=== PATIENT | female | born 1940 | race Caucasian/White ===

== ENCOUNTER 2022-08-15 14:46 | Outpatient (CLI) | payer MEDICARE, BC, SELFPAY ==
--- OUTSIDE RECORDS SUMMARY | 2022-08-15 14:50 | XMS_ITS | Encounter Summary ---
:1940 Author Organization [facility] Address [address] [place] [address] Care Team Providers Name Role Phone RoblesPan collinsaissatou Oliver DO Primary Care Provider Encounter Details Date Type Department Care Team Description 09/20/2021 Lab Visit [facility] Essential hypertension [id number] [place] [address] Social History Tobacco Use Types Packs/Day Years Used Date Smoking Tobacco: Never Smokeless Tobacco: Never Alcohol Use Standard Drinks/Week Comments Yes 0 (1 standard drink = 0.6 oz pure Alcoho lic Drinks/day: 1-2 x per alcohol) year Alcohol Habits Answer Date Recorded How often do you have a drink Not asked containing alcohol? How many drinks containing alcohol Not asked do you have on a typical day when you are drinking? How often do you have six or more Not asked drinks on one occasion? Comment: Alcoholic Drinks/day: 1-2 x per 06/24/20 18 year Sex Assigned at Date Recorded Not on file documented as of this encounter Plan of Treatment Not on filedocumented as of this encounter Procedures Procedure Name Priority Date/Time Associated Diagnosis Comme nts BASIC METABOLIC Routine 09/20/2021 8:44 AM Essential Result s for this PANEL BODY COVERER hypertension procedure are i n the results section. documented in this encounter Results (ABNORMAL) Basic Metabolic Panel (09/20/2021 8:44 AM BODY COVERER) Analysis Performed At Patho logist Time Signature Sodium 141 136 - 145 09/20/2021 [facility] mmol/L 1:06 [facility] Potassium 3.7 3.5 - 5.1 09/20/2021 [facility] mmol/L 1:06 [facility] Chloride 104 98 - 109 09/20/2021 [facility] mmol/L 1:06 PM [facility] CO2 29 20 - 29 09/20/2021 [facility] mmol/L 1:06 PM [facility] Anion Gap 8 7 - 16 09/20/2021 [facility] mmol/L 1:06 PM [facility] Calcium 9.3 8.4 - 10.4 09/20/2021 [facility] mg/dL 1:06 PM [facility] BUN 23 7 - 26 09/20/2021 [facility] mg/dL 1:06 PM [facility] Creatinine 0.94 0.55 - 09/20/2021 [facility] 1.02 mg/dL 1:06 PM [facility] GFR, Estimated 58 (L) >60 09/20/2021 [facility] mL/min/1.7 1:06 PM [facility] 3m2 Glucose 105 (H) 70 - 100 09/20/2021 [facility] mg/dL 1:06 PM [facility] Comment: The given reference range is fo r the fasting state. Non-fasting reference range for glucose is 70 - 180 mg/dL. Hours Fasting 0 09/20/2021 1:06 PM B[facility] C[facility]ER [facility] Specimen Anatomical Collection Method / Collection Time Recei la Time (Source) Location / Volume Laterality Blood Venipuncture / 09/20/2021 8:44 09/20/2021 8:44 Unknown AM BODY COVERER AM BODY COVERER Narrative [facility] - 09/20/2021 1:06 P M BODY COVERER The National Kid[employer] Disease Education Pr ogram suggests measuring Cystatin C in patients with eGFRcrea of 45 to 59 ml/mi n/1.73^2 who do not have other markers of kidney damage (i.e. elevated urine Album in/Creatinine Ratio or a prior Cystatin C confirming the presence of chronic kidne y disease). Veronica Heredia DO LAB_1 Performing Organization Address City/State/ZIP Code Phon e Number [facility] [address] [place] [address] [facility] [address] [place] [address], [facility] documented in this encounter Visit Diagnoses Diagnosis Essential hypertension (HRC) Unspecified essential hypertension documented in this encounter Care Teams Plastics Process Hand Relationship Specialty Start Date End Date Veronica Heredia DO PCP - General Family Practice 03/22/17 [address] [facility] [address] [place], [place] [id number] documented as of this encounter
--- OUTSIDE RECORDS SUMMARY | 2022-08-15 14:50 | XMS_ITS | Encounter Summary ---
:1940 Author Organization [facility] Address [address] [place] [address] Care Team Providers Name Role Phone Veronica Heredia DO Primary Care Provider Reason for Visit Reason Comments Refill levothyroxine (SYNTHROID) 75 MCG tablet [Pharmacy Med Name: LEVOTHYROXINE 75 MCG TABLET] Encounter Details Date Type Department Care Team Description 03/09/2022 Refill [facility] Veronica Heerdia, DO Refill (levothyroxine [address]10 Twelve Rule 24259 Twelve Rule (SYNT HROID) [address] [Pharmacy Med Name: [place] [address] [place] LEVOTHYROXINE 75 MCG [phone] [id number] TABLET]) [phone] (Wo rk) Social History Tobacco Use Types Packs/Day Years [...] on file documented as of this encounter Nursing Notes Lisa Pak RN - 03/09/2022 10:07 AM CDT Renewed medication per medication refill protocol. Requested Prescriptions Pending Prescriptions Disp Refills ??? levothyroxine (SYNTHROID) 75 MCG tablet [Pharmacy Med Name: LEVOTHYROXINE 75 MCG TABLET] 90 Tablet 3 Sig: TAKE 1 TABLET BY MOUTH EVERY DAY Interface, Out [facility] Prov Query - 03/09/2022 12:43 AM CDT levothyroxine (SYNTHROID) 75 MCG tablet [Pharmacy Med Name: LEVOTHYROXINE 75 MCG TABLET] Medication started: 03/13/2019 Last ordered by VERONICA HEREDIA: 06/08/2021 (274 days ago) QTY: 90, Refills: 2, Sig: take 1 tablet by mouth every day (unchanged) -> Refill x 12 months, qty: 90, refills: 3 (until due for an office visit and TSH check) Last qualifying visit: 01/16/2022 (with VERONICA HEREDIA) Next scheduled visit: None TSH: 0.77 mIU/L on 01/16/2022 Powered by [employer] Embedded Refills, Reference: [id number], 03/09/2022 12:43:06 AM CDT, Pool: YURY JUAREZ REFILL ([id number]) Interface, Out [facility] Prov Query - 03/09/2022 12:43 AM CDT The following lab order(s) may be associated with the following Patient Result Comment (Entered by Veronica Heredia DO at 01/17/2022 7:58 AM): TSH, SENSITIVE Your TSH is normal, continue your levothyroxine at your current dosage.Regards, Dr. Heredia documented in this encounter Plan of Treatment Not on filedocumented as of this encounter Visit Diagnoses Diagnosis Hypothyroidism, unspecified type (HRC) documented in this encounter Care Teams Domestic Helper Relationship Specialty Start Date End Date eVronica Heredia DO PCP - General Family Practice 03/22/17 [address] [facility] [address] [place] [address] documented as of this encounter
--- OUTSIDE RECORDS SUMMARY | 2022-08-15 14:50 | XMS_ITS | Encounter Summary ---
:1940 Author Organization [facility] Address [address] [place] [address] Care Team Providers Name Role Phone Veronica Heredia DO Primary Care Provider Reason for Visit Reason Comments Refill metoprolol succinate (TOPROL XL) 50 MG 24 hour release tablet [Pharmacy Med Name: METOPROLOL SUCC ER 50 MG TAB] Encounter Details Date Type Department Care Team Description 06/14/2022 Refill [facility] Veronica Heredia, DO Refill (metoprolol [address] [facility] [address] [facility] succinate (TOPROL XL) [address] [place] 24 [place] [address] [place], [place] tablet [Pharmacy Med [phone] [id number] Name: METOPROLOL SUCC ER [phone] (Wo rk) 50 MG TAB]) Social History Tobacco Use Types Packs/Day Years [...] documented as of this encounter Nursing Notes Jose Luis Jordan RN - 06/16/2022 3:53 PM CDT Renewed medication per medication refill protocol. Requested Prescriptions Pending Prescriptions Disp Refills metoprolol succinate (TOPROL XL) 50 MG 24 hour release tablet [Pharmacy Med Name: METOPROLOL SUCC ER 50 MG TAB] 90 Tablet 2 Sig: TAKE 1 TABLET BY MOUTH EVERY DAY Interface, Out [employer] Prov Query - 06/14/2022 1:08 AM CDT metoprolol succinate (TOPROL XL) 50 MG 24 hour release tablet [Pharmacy Med Name: METOPROLOL SUCC ER50 MG TAB] Medication started: 07/09/2017 Last ordered by VERONICA HEREDIA: 06/09/2021 (370 days ago) QTY: 90, Refills: 3, Sig: take 1 tablet by mouth every day (unchanged) -> The requested strength (50 mg extended release oral tablet) was last ordered on 06/09/2021. The patient is taking 25 mg extended release oral tablet as of 08/02/2021. -> The medication is active at more than one strength (50 mg on 06/09/2021, 25 mg on 08/02/2021). -> Refill x 9 months, qty: 90, refills: 2 (until due for an office visit) Last qualifying visit: 01/16/2022 (with VERONICA HEREDIA) Next scheduled visit: None [facility] Embedded Refills, Reference: [id number], 06/14/2022 1:08:51 AM CDT, Pool: YURY JUAREZ REFILL ([id number]) documented in this encounter Plan of Treatment Not on filedocumented as of this encounter Visit Diagnoses Diagnosis Essential hypertension (HRC) Unspecified essential hypertension documented in this encounter Care Teams Door To Door Lead Generation Relationship Specialty Start Date End Date Veronica Heredia DO PCP - General Family Practice 03/22/17 [address] [facility] [address] [place] [id number] documented as of this encounter
--- OUTSIDE RECORDS SUMMARY | 2022-08-15 14:50 | XMS_ITS | Encounter Summary ---
:1940 Author Organization [facility] Address [address], [place] [address] Care Team Providers Name Role Phone Veronica Heredia DO Primary Care Provider Reason for Referral (Routine) - New Request Specialty Diagnoses / Procedures Referred By Contact Refer red To Contact Procedures Manpreet Choudhary MD Physical Therapy Eval and [address] Treat [place], [place] [address] Referral ID Status Reason Start Date Expiration Date Visits V isits Requested Authorized [id number] New Request 01/03/2022 04/04/2023 1 1 SOLUTION ARCHITECT Procedure/Equipment (Routine) - Incomplete Specialty Diagnoses / Procedures Referred By Contact Refer red To Contact Procedures Angeli Amaya PA-C CT Abd Pelvis WO IV Cont [address] [place] [address] Referral ID Status Reason Start Date Expiration Date Visits V isits Requested Authorized [id number] Incomplete 01/02/2022 04/03/2023 1 1 SOLUTION ARCHITECT Reason for Visit Reason Comments Diarrhea Auth/Cert Specialty Diagnoses / Procedures Referred By Contact Refer red To Contact Diagnoses Colitis Proctitis Leukocytosis, unspecified type (HRC) Diarrhea, unspecified type Colitis Proctitis Diarrhea, unspecified type Leukocytosis, unspecified type (HRC) Colitis Proctitis Diarrhea, unspecified type Leukocytosis, unspecified type (HRC) Referral ID Status Reason Start Date Expiration Date Visits Requ ested Visits Authorized [id number] 1 1 Encounter Details Date Type Department Care Team Description 01/02/2022 - Hospital Encounter Gnosticism Benito Whitaker, SANDRA [address] [place] [address] Colitis; 01/05/2022 General Medicine Cyn Varela DO [address] [place] [address] Proctitis; [address] Manpreet Choudhary MD [address] [place] [address] Diarrhea, unspecified type; Blvd. Leukocytosis, [place] [address] Social History Tobacco Use Types Packs/Day Years [...] on file documented as of this encounter Last Filed Vital Signs Vital Sign Reading Time Taken Comments Blood Pressure 147/74 01/05/2022 7:47 AM [facility] SOLUTION ARCHITECT Pulse 65 01/05/2022 7:47 AM AWS SOLUTION ARCHITECT Temperature 36.3 ??C (97.4 ??F) 01/05/2022 7:47 AM AWS SOLUTION ARCHITECT Respiratory Rate 18 01/05/2022 7:47 AM AWS SOLUTION ARCHITECT Oxygen Saturation 94% 01/05/2022 7:47 AM AWS SOLUTION ARCHITECT Inhaled Oxygen Concentration - - Weight 83.9 kg (184 lb 15.5 oz) 01/03/2022 1:27 PM AWS SOLUTION ARCHITECT Height - - Body Mass Index 31.75 07/13/2021 7:52 AM CDT documented in this encounter Discharge Summaries Manpreet Choudhary MD - 01/05/2022 1:05 PM CST Images from the original note were not included. DISCHARGE SUMMARY Patient ID: Michele Angulo [id number] 81 y.o. 1940 Admit date: 01/02/2022 Discharge date: 01/05/2022 Final Discharge Diagnoses: Colitis Essential hypertension (HRC) Hyperlipidemia (HRC) Endometrial cancer (HRC) Hypothyroidism (HRC) Proctitis * No resolved hospital problems. * HPI: Per Dr Varela's initial H&P: Very pleasant 81 year-old with HTN present to [facility] for ongoing diarrhea. Patient states that her symptoms started last week and continue to progress. She has had possibly 6 episodes of diarrhea and states that there was possibly blood. Patient seen in ED and CT abd/pelvis shows diffuse findings in the rectum and sigmoid colon most consistent with colitis and proctitis. Patient denies any fever, chills, or antibiotics use. Please see the admission history and physical for full details. Hospital Course: C diff colitis with sepsis The patient had no preceding antibiotics or exposure, presented with 1 week of crampy abdominal painand diarrhea, found to have C diff by PCR and evidence of procto-sigmoid colitis on imaging. Marked leukocytosis and tachycardia on arrival which resolved. She was treated with oral vancomycin and keptin the hospital until her stool output subsided and she was able to tolerate a regular diet. - Procedures: none - Consults: none - Significant Diagnostic Studies: CT a/p: 1. Diffuse findings in the rectum and sigmoid colon is most consistent with nonspecific colitis and proctitis. Disposition: home Condition at Discharge: Stable Discharge Exam: BP (!) 147/74 Pulse 65 Temp 36.3 ??C (97.4 ??F) (Oral) Resp 18 Wt 83.9 kg (184 lb 15.5 oz) SpO2 94% BMI 31.75 kg/m?? General: patient is alert and in no acute distress HEENT: conjunctiva clear, MMM Lungs: clear to auscultation bilaterally, no wheezes or crackles Heart: RRR Abdomen: soft, non-tender, bowel sounds present Extremities: no edema Skin: no gross lesions or rashes NEUROLOGIC: CN II - XII grossly intact, normal strength Pending Tests: none Discharge Medications: Done while pt still in hospital bed Medication List START taking these medications vancomycin 125 MG capsule Commonly known as: VANCOCIN Take 1 Capsule (125 mg) by mouth 4 times a day for 32 doses. CONTINUE taking these medications acetaminophen 325 MG tablet Commonly known as: TYLENOL cholecalciferol 25 MCG (1000 UT) tablet Commonly known as: VITAMIN D3 cyanocobalamin 1000 MCG tablet Commonly known as: VITAMIN B12 Take 1 Tablet by mouth daily. hydroCHLOROthiazide 12.5 MG capsule Take 1 Capsule by mouth daily. levothyroxine 75 MCG tablet Commonly known as: SYNTHROID TAKE 1 TABLET BY MOUTH EVERY DAY * metoprolol succinate 50 MG 24 hour release tablet Commonly known as: TOPROL XL TAKE 1 TABLET BY MOUTH EVERY DAY * metoprolol succinate 25 MG 24 hour release tablet Commonly known as: TOPROL XL TAKE 1 TAB BY MOUTH DAILY. TAKE WITH TOPROL XL 50 MG TAB TO EQUAL 75 MG. PRESERVISION AREDS 2 OR simvastatin 20 MG tablet Commonly known as: ZOCOR TAKE 1 TABLET BY MOUTH EVERY DAY valsartan 160 MG tablet Commonly known as: DIOVAN Take 1 Tablet by mouth daily. * This list has 2 medication(s) that are the same as other medications prescribed for you. Read thedirections carefully, and ask your doctor or other care provider to review them with you. Where to Get Your Medications These medications were sent to [facility] [address] [place] [id number] Hours: Open 24x7 ?? vancomycin 125 MG capsule Code Status: Code status: FULL Follow [place]: [place] [address] [facility] [place] [address] APPOINTMENT SCHEDULED see below, If needed, reschedule in 7-10 days after discharge Future Appointments Provider Department Center 01/16/2022 2:00 PM Veronica Heredia DO [facility] Y[facility] Recommendations for primary care physician: cr was up a bit on discharge, please repeat at next clinic visit See the electronic medical record for full laboratory and diagnostic test results. For full discharge orders and instructions, please see the after visit summary for this hospitalization. Total time spent on discharge: 35 minutes Manpreet Choudhary MD [phone] SOLUTION ARCHITECT documented in this encounter Medications at Time of Discharge Medication Sig Dispensed Refills Start Date End Date acetaminophen (TYLENOL) 325 Take 325-650 mg 0 MG tablet by mouth every 4 hours as needed for Pain. cholecalciferol (VITAMIN D3) Take 1,000 Units 0 1000 units tablet by mouth daily. cyanocobalamin (VITAMIN B12) Take 1 Tablet by 90 Tablet 3 0 03/08/2021 1000 MCG tabletIndications: mouth daily. Vitamin B12 deficiency (HRC) hydroCHLOROthiazide 12.5 MG Take 1 Capsule 90 Capsule 3 09/05 capsuleIndications: by mouth daily. Essential hypertension (HRC) Multiple Vitamins-Minerals Take 2 tablets 0 (PRESERVISION AREDS 2 OR) by mouth daily. vancomycin (VANCOCIN) 125 MG Take 1 Capsule 32 Capsule 0 01/202201/13/2022 capsule (125 mg) by mouth 4 times a day for 32 doses. levothyroxine (SYNTHROID) 75 TAKE 1 TABLET BY 90 Tablet 2 0 06/08/2021 03/09/2022 MCG tabletIndications: MOUTH EVERY DAY Hypothyroidism, unspecified type (HRC) metoprolol succinate (TOPROL TAKE 1 TAB BY 90 Tablet 3 07/0708/03/2022 XL) 25 MG 24 hour release MOUTH DAILY. tabletIndications: Essential TAKE WITH TOPROL hypertension (HRC) XL 50 MG TAB TO EQUAL 75 MG. metoprolol succinate (TOPROL TAKE 1 TABLET BY 90 Tablet 3 0 06/09/2021 06/16/2022 XL) 50 MG 24 hour release MOUTH EVERY DAY tabletIndications: Essential hypertension (HRC) simvastatin (ZOCOR) 20 MG TAKE 1 TABLET BY 90 Tablet 2 /01/202106/08/2022 tabletIndications: MOUTH EVERY DAY Hyperlipidemia, unspecified hyperlipidemia type (HRC) valsartan (DIOVAN) 160 MG Take 1 Tablet by 90 Tablet 3 01/202106/28/2022 tabletIndications: Essential mouth daily. hypertension (HRC) documented as of this encounter Progress Notes Jain Bee RN - 01/05/2022 1:05 PM CST DISCHARGE O: Patient safely discharged to home. D: Patient is alert and oriented x 4. Pt up independently . Discharge criteria met. Vaccines addressed prior to discharge. A: Discharge instructions and medications reviewed and given to patient. Written medication education material provided on Oral vancomycinincluding possible side effects. Prescriptions filled by [facility] pharmacy. Belongings checklist reviewed with patient and belongings sent. No Equipment sent:No Supplies sent . Care plan issues addressed and education record updated. R: Patient verbalizes understanding and teaches back discharge instructions. Patient discharged by: wheelchair with staff. SOLUTION ARCHITECT Manpreet Choudhary MD - 01/04/2022 2:55 PM CST DAILY PROGRESS NOTE Subjective: Feeling ok this morning. Diarrhea continues, with some abdominal pain. 10 stools yesterday. No fevers. 5 point ROS negative except as mentioned above. Objective: Vitals: BP 104/61 Pulse 76 Temp 36.6 ??C (97.8 ??F) (Oral) Resp 18 Wt 83.9 kg (184 lb 15.5 oz) SpO2 99% BMI 31.75 kg/m?? I/O last 3 completed shifts: In: 120 [Oral:120] Out: - General: patient is alert and in no acute distress HEENT: conjunctiva clear, MMM Lungs: clear to auscultation bilaterally, no wheezes or crackles Heart: RRR Abdomen: soft, mildly tender lower quadrants, bowel sounds present Extremities: no edema Skin: no gross lesions or rashes Neuro: grossly intact Meds: reviewed in chart LABS: reviewed, see Epic Assessment/Plan Michele Angulo is a 81 y.o. female who presented with 1 week of crampy abdominal pain and diarrhea, found to have C diff. C diff colitis with sepsis The patient had no preceding antibiotics or exposure, presented with 1 week of crampy abdominal painand diarrhea, found to have C diff by PCR. Marked leukocytosis and tachycardia on arrival, improved. - continue vanco 125 qid - continue IVF until stools slow - document stool frequency, volume HTN BP acceptable. - continue metoprolol, losartan - holding hctz given volume losses HLD - continue statin Hypothyroidism - continue synthroid FEN: regular diet Prophy: low risk Code status: full Dispo: home 1-2 days when stools improve Manpreet Choudhary MD [phone] Total time: 25 minutes, >50% of which was spent counseling and coordinating care SOLUTION ARCHITECT Gisela Zabala, PT - 01/04/2022 6:28 AM CST Physical Therapy Inpatient Initial Evaluation Date of Admit: 01/02/2022 History of current medical diagnosis: 81 y.o. female who presented with 1 week of crampy abdominal pain and diarrhea, found to have C diff. ?? C diff colitis with sepsis Rehab Diagnosis: assess for deficits Past Medical History: Past Medical History: Diagnosis Date ??? Aspirin long-term use 04/16/2015 ASA therapy 75-162 mg/day is recommended for primary CVD prevention because patient -Is female 57 years who have at least one additional major risk factor such as: -HTN -Dyslipdemia ??? Calculus of kidney right side diagnosed CT scan in [place] asymptomatic 04/18/2016 ??? Endometrial cancer (HRC) 05/02/2018 ??? H/O colonoscopy 2007 due 201704/16/2015 ??? Hyperlipidemia 07/12/2005 takes zocor ??? Hypertension 04/11/2003 takes atenolol cozaar ??? Obesity (HRC) 04/30/2006 LW Onset: [id number] ??? Postmenopausal 04/16/2015 resolved ??? Zoster Order: Eval and Treat: Discharge/Disposition recommendations SUBJECTIVE Mood: pleasant and alert Patient reports: Pt agreeable to work with PT-states she is feeling quite a bit better Pain: None Support System: lives alone, goes to [place] Part of the year. 2 sisters live in [facility] Prior Functional Level: --Independent with community mobility with no assistive device. --Independent with household mobility with no assistive device. --Driving: yes Assistance provided by: no assistance needed Home Environment: condo Stairs: None Current Equipment Available: no assistive device Patient PT Goals: Pt hopes to return home but very concerned she does not know where her house keys are-RN aware Patient History: Moderate Complexity: 1-2 personal factors and/or comorbidities that impact plan of care: lives alone, no support locally OBJECTIVE Treatment Location: Bedside Special Equipment: IV Precautions: none Orientation: Oriented x 3 Cooperation: full Barriers to Learning: none -- Range of Motion: AROM in bilateral LE WNL -- Strength: Normal in bilateral lower extremities -- Sensation: numbness occasionally in B feet -- Endurance: adequate for household mobility and inadequate for community mobility -- Balance: -- no LOB noted during session Standardized test: -[facility] 6 Items (out of 24 points): Raw Score: 24, Standardized Score: 57.68, 0.00% impaired Suggested AM-[facility] Basic Mobility Stage: 52-65 - MOVING AROUND INDOORS: This score suggests the patient may be able to move about on the ground floor of the home where he/she is familiar with the environment. Activities that might be difficult to manage without assistance include sitting and standing from a low chair, climbing stairs, bending, kneeling or stooping. The patient may have some difficulty moving about outdoors and in the community. Gait: Equipment: no assistive device Assistance: Supervision-> independent Distance: 200 feet Gait Pattern: reciprocal Stairs: Not tested - pt has none to climb Transfers: Sit to Stand: modified independent Sit to/from Supine: independent Clinical Examination: Low complexity: Addressed 1-2 elements from body structures and functions (seeabove), and/or functional limitations as noted below. Other Treatments: none Education/Handouts: Plan for session, encouraged pt to walk 3-4x /day with nursing staff Multidisciplinary Communication: RN ok'd PT and updated after that pt does giuliana need more PT, just have staff walk with pt Timed codes: None Total timed minutes: 0 Total treatment time: 21 ASSESSMENT Assessment: Pt moving well without assistive device-only needs assistance because she has IV which needs to be unplugged and plugged in Discharge Recommendations: (PT) If discharged from hospital today, patient needs: no assist with mobility (PT) Anticipated Equipment Needs at Discharge: None (PT) Discharge Recommendations: home, no further PT recommended (PT) Discharge Recommendations Discussion: Discharge recommendations discussed with, patient, patient agrees with recommendations (PT) Additional Assessment/Recommendations: Pt is safe to d/c home when medically ready. No further inpatint PT planned-pt to walk with nursing staff (due to pt has IV) Patient's impairments: Decreased endurance Functional limitations: No limitations PT Clinical Presentation: Low Complexity: Stable and Uncomplicated Clinical Decision Making: Low Complexity Eval Goals/Functional Outcomes: No goals set- evaluation only. Rehab Potential: Good PLAN Planned intervention/education: Evaluation Frequency: one time Duration: 1 day Goals and Plan of Care discussed with patient/family; patient consents to treatment: Yes Plan for Next Treatment: No further inpatient PT planned-RN aware and nursing staff will walk with patient NOTE: The clinician's signature certifies medical necessity for the treatment plan above. SOLUTION ARCHITECT Manpreet Choudhary MD - 01/03/2022 1:19 PM CST DAILY PROGRESS NOTE Subjective: Patient admitted yesterday afternoon with colitis. Stool sample not sent until this morning, found to have c diff. Diarrhea continues, possibly a bit better this morning. Ongoing pain that precedes bowel movements. No fevers or chills. 5 point ROS negative except as mentioned above. Objective: Vitals: BP 120/65 Pulse 73 Temp 37.1 ??C (98.8 ??F) (Oral) Resp 18 Wt 83 kg (182 lb 15.7 oz) SpO2 94% BMI 31.41 kg/m?? I/O last 3 completed shifts: In: 120 [Oral:120] Out: 651 [Urine:650; Stool:1] General: patient is alert and in no acute distress HEENT: conjunctiva clear, MMM Lungs: clear to auscultation bilaterally, no wheezes or crackles Heart: RRR Abdomen: soft, mildly tender lower quadrants, bowel sounds present Extremities: no edema Skin: no gross lesions or rashes Neuro: grossly intact Meds: reviewed in chart LABS: reviewed, see Epic Assessment/Plan Michele Angulo is a 81 y.o. female who presented with 1 week of crampy abdominal pain and diarrhea, found to have C diff. C diff colitis with sepsis The patient had no preceding antibiotics or exposure, presented with 1 week of crampy abdominal painand diarrhea, found to have C diff by PCR. Marked leukocytosis and tachycardia on arrival, improved. - DC ceftriaxone, flagyl - start vanco 125 qid - continue IVF until stools slow - document stool frequency, volume HTN BP acceptable. - continue metoprolol, losartan - holding hctz given volume losses HLD - continue statin Hypothyroidism - continue synthroid FEN: regular diet Prophy: low risk Code status: full Dispo: home 1-2 days when stools improve, PT for dispo recs Manpreet Choudhary MD [phone] Total time: 35 minutes, >50% of which was spent counseling and coordinating care SOLUTION ARCHITECT Flavia Mensah PharmD - 01/02/2022 10:01 PM CST Medication notes: --Michele takes her simvastatin at 1800 and levothyroxine at 2300. All other meds are taken at 0600. Medications added to [employer] med list: --PreserVision AREDS2 eye vitamin 2QD Medications removed from [employer] med list: None Outpatient Medications Marked as Taking for the 01/02/22 encounter (Hospital Encounter) Medication Sig Last Dose acetaminophen (TYLENOL) 325 MG tablet Take 325-650 mg by mouth every 4 hours as needed for Pain. AsDirected-PRN cholecalciferol (VITAMIN D3) 1000 units tablet Take 1,000 Units by mouth daily. 01/02/2022 at 0600 cyanocobalamin (VITAMIN B12) 1000 MCG tablet Take 1 Tablet by mouth daily. 01/02/2022 at 0600 hydroCHLOROthiazide 12.5 MG capsule Take 1 Capsule by mouth daily. 01/02/2022 at 0600 levothyroxine (SYNTHROID) 75 MCG tablet TAKE 1 TABLET BY MOUTH EVERY DAY 01/01/2022 at 2300 metoprolol succinate (TOPROL XL) 25 MG 24 hour release tablet TAKE 1 TAB BY MOUTH DAILY. TAKE WITH TOPROL XL 50 MG TAB TO EQUAL 75 MG. 01/02/2022 at 0600 metoprolol succinate (TOPROL XL) 50 MG 24 hour release tablet TAKE 1 TABLET BY MOUTH EVERY DAY 01/02/2022 at 0600 Multiple Vitamins-Minerals (PRESERVISION AREDS 2 OR) Take 2 tablets by mouth daily. 01/02/2022 at 0600 simvastatin (ZOCOR) 20 MG tablet TAKE 1 TABLET BY MOUTH EVERY DAY 01/01/2022 at 1800 valsartan (DIOVAN) 160 MG tablet Take 1 Tablet by mouth daily. 01/02/2022 at 0600 Primary Source of Medication Information: Patient Secondary Source of Medication Information: Julianne (website) Number of Medications Reviewed: 9 Number of Clarifications: 2 Time Needed to Complete: 16-30 min Admission Med Rec Score: Total Score: 5 1 Patient age greater than 65 or 82 4 Number of medications on [facility] med list is 0 or greater than 7 Thank you, Flavia Mensah PharmD 01/02/2022 10:01 PM This list represents all stated information available at the present time, and should be used as a guide in determining the appropriate treatment while in the hospital. SOLUTION ARCHITECT Indiana Dougherty RN - 01/02/2022 6:58 PM CST ADMIT O: Admitted patient via wheelchair from EC to bed # [id number] [id number]. D: Patient is alert and oriented x 4; none present. See Admission Assessments. A: Discussed plan of care. See education record for admission education. Oriented to room. Call light in reach. Bed alarm: on R: Patient status: stable. Will monitor. Awaiting orders. SOLUTION ARCHITECT documented in this encounter OR Notes H&P - Cyn Varela DO - 01/02/2022 4:47 PM CST HISTORY & PHYSICAL EXAM Date of admission: 01/02/2022 Primary Care Provider: Veronica Heredia DO HPI: This is a 81 y.o. female admitted to [facility] for colitis Very pleasant 81 year-old with HTN present to [facility] for ongoing diarrhea. Patient states that her symptoms started last week and continue to progress. She has had possibly 6 episodes of diarrhea and states that there was possibly blood. Patient seen in ED and CT abd/pelvis shows diffuse findings in the rectum and sigmoid colon most consistent with colitis and proctitis. Patient denies any fever, chills, or antibiotics use. Patient admitted for further care. Past Medical History: Diagnosis Date ??? Aspirin long-term use 04/16/2015 ASA therapy 75-162 mg/day is recommended for primary CVD prevention because patient -Is female 57 years who have at least one additional major risk factor such as: -HTN -Dyslipdemia ??? Calculus of kidney right side diagnosed CT scan in [place] asymptomatic 04/18/2016 ??? Endometrial cancer (HRC) 05/02/2018 ??? H/O colonoscopy 2007 due 201704/16/2015 ??? Hyperlipidemia 07/12/2005 takes zocor ??? Hypertension 04/11/2003 takes atenolol cozaar ??? Obesity (HRC) 04/30/2006 LW Onset: [id number] ??? Postmenopausal 04/16/2015 resolved ??? Zoster Patient Active Problem List Diagnosis ??? Essential hypertension (HRC) ??? Hyperlipidemia (HRC) ??? Esophageal reflux ??? Calculus of kidney ??? Endometrial cancer (HRC) ??? Hypothyroidism (HRC) ??? Intermediate stage nonexudative age-related macular degeneration of both eyes ??? Proctitis ??? Colitis Social History Socioeconomic History ??? Marital status: Single Spouse name: Not on file ??? Number of children: Not on file ??? Years of education: Not on file ??? Highest education level: Not on file Occupational History ??? Not on file Tobacco Use ??? Smoking status: Never Smoker ??? Smokeless tobacco: Never Used Vaping Use ??? Vaping Use: Never used Substance and Sexual Activity ??? Alcohol use: Yes Comment: Alcoholic Drinks/day: 1-2 x per year ??? Drug use: No ??? Sexual activity: Not on file Other Topics Concern ??? Bike Helmet Yes ??? [place] Yes ??? Exercise Yes ??? Guns in home No ??? Seat Belt Yes ??? Special Diet No ??? Weight Concern Yes Social History Narrative ??? Not on file Social Determinants of Health Financial Resource Strain: Not on file Food Insecurity: Not on file Transportation Needs: Not on file Physical Activity: Not on file Intimate Partner Violence: Not on file Housing Stability: Not on file Family History Problem Relation Age of Onset ??? Arthritis Mother ??? Cancer Mother 73 liver ??? Arthritis Father ??? Kidney/Bladder Disease Father ??? Arthritis Sister ??? Depression Sister ??? High Blood Pressure Sister ??? Anxiety Sister ??? Thyroid Disorder Sister ??? Heart Failure Paternal Grandfather ??? Heart Failure Maternal Grandfather ??? Cancer, Breast Negative Family History ??? Cancer, Ovary Negative Family History ??? Cancer, Endometrial Negative Family History Contrast [iodinated diagnostic agents], Penicillins, and Sulfa antibiotics Medication: Current Facility-Administered Medications Medication Dose Route Frequency Provider Last Rate Last Admin ??? cefTRIAXone (ROCEPHIN) 2 g in dextrose 50 mL IVPB 2 g Intravenous Once Angeli Amaya PA-C100 mL/hr at 01/02/22 1639 2 g at 01/02/22 1639 ??? metroNIDAZOLE (FLAGYL) 500mg in sodium chloride 0.9% 100 mL IVPB 500 mg Intravenous Once Angeli Amaya PA-C Current Outpatient Medications Medication Sig Dispense Refill ??? acetaminophen (TYLENOL) 325 MG tablet Take 325-650 mg by mouth every 4 hours as needed for Pain. ??? cholecalciferol (VITAMIN D3) 1000 units tablet Take 1,000 Units by mouth daily. ??? cyanocobalamin (VITAMIN B12) 1000 MCG tablet Take 1 Tablet by mouth daily. 90 Tablet 3 ??? hydroCHLOROthiazide 12.5 MG capsule Take 1 Capsule by mouth daily. 90 Capsule 3 ??? levothyroxine (SYNTHROID) 75 MCG tablet TAKE 1 TABLET BY MOUTH EVERY DAY 90 Tablet 2 ??? metoprolol succinate (TOPROL XL) 25 MG 24 hour release tablet TAKE 1 TAB BY MOUTH DAILY. TAKE WITH TOPROL XL 50 MG TAB TO EQUAL 75 MG. 90 Tablet 3 ??? metoprolol succinate (TOPROL XL) 50 MG 24 hour release tablet TAKE 1 TABLET BY MOUTH EVERY DAY 90 Tablet 3 ??? simvastatin (ZOCOR) 20 MG tablet TAKE 1 TABLET BY MOUTH EVERY DAY 90 Tablet 2 ??? valsartan (DIOVAN) 160 MG tablet Take 1 Tablet by mouth daily. 90 Tablet 3 ROS: A comprehensive review of system was negative except for the following: See HPI Physical Exam: Vitals: Blood pressure 135/70, pulse 94, temperature 37.8 ??C (100.1 ??F), temperature source Oral, SpO2 97 %. Estimated body mass index is 31.82 kg/m?? as calculated from the following: Height as of 07/13/21: 1.626 m (5' 4). Weight as of 12/29/21: 84.1 kg (185 lb 6.4 oz). General: Patient alert, in NAD. She is able to give a detailed history and follow commands appropriately Upper Extremities: FROM with good strength CV: RRR without murmurs Resp: CBTA Abdomen: Soft, ND, +BS, some guarding in LLQ Lower Extremities: FROM with good strength Neuro: CN II-XII, motor & sensory function all intact. Psychiatric: Patient does not appear depressed or anxious. Labs: Lab Results Component Value Date Creatinine 1.10 (H) 01/02/2022 Glucose 116 (H) 01/02/2022 CO2 27 01/02/2022 Chloride 103 01/02/2022 Potassium 4.1 01/02/2022 Sodium 140 01/02/2022 BUN 24 01/02/2022 Calcium 8.9 01/02/2022 GFR, Estimated 51 (L) 01/02/2022 Lab Results Component Value Date WBC 16.0 (H) 01/02/2022 RBC 4.14 01/02/2022 Hemoglobin 12.0 01/02/2022 HCT 37.2 01/02/2022 MCV 89.9 01/02/2022 RDW 12.6 01/02/2022 Platelets 154 01/02/2022 Images: see EPIC Assessment/Plan: This is a 81 y.o. female with HTN admitted to hospital for 4 days of ongoing diarrhea 2nd to colitis/proctitis Hospital active problems: Plan: 1. Stool cultures, will check CRP, procalcitonin. C diff pending. Will guaiac stools. Will start patient on clears and IV antibiotics (ceftriaxone/metro). Patient has tenderness at LLQ. Held HCTZ and will start IV fluids 2. Code Status: full 3. Plan discuss with patient Cyn Varela DO 4:47 PM 01/02/2022 Hospitalist, [facility] tt 70 mins > 50% direct CT SOLUTION ARCHITECT documented in this encounter ED Notes StjeAngeli hood PA-C - 01/02/2022 2:23 PM CST Chief Complaint: Chief Complaint Patient presents with ??? Diarrhea HPI: Michele Angulo is a 81 y.o. old female with history of hypertension who presents to the ED with diarrhea. Patient presents to the emergency department with approximately 1 week history of diarrhea. Was evaluated in urgent care on 12/29 at which time, had an unremarkable exam and plan was for wait and see.Patient reports that since that time, she continues to endorse approximately 10 episodes of loose stool a day. Denies any blood in the stool. Over the last couple days, has began to notice with lower abdominal pain. No fever, nausea, vomiting, or urinary symptoms. No chest pain or shortness of breath.Patient lives independently and is now reporting some increased weakness and concern for safety at home. She has had decrease in appetite however, does feel like she is staying hydrated. Denies any recent antibiotic use, atypical foods, ill contacts, or travel. Due to above, presents for further evaluation. PMH: Patient Active Problem List Diagnosis ??? Essential hypertension (HRC) ??? Hyperlipidemia (HRC) ??? Esophageal reflux ??? Calculus of kidney ??? Endometrial cancer (HRC) ??? Hypothyroidism (HRC) ??? Intermediate stage nonexudative age-related macular degeneration of both eyes Medications: Current Outpatient Medications Medication ??? acetaminophen (TYLENOL) 325 MG tablet ??? cholecalciferol (VITAMIN D3) 1000 units tablet ??? cyanocobalamin (VITAMIN B12) 1000 MCG tablet ??? hydroCHLOROthiazide 12.5 MG capsule ??? levothyroxine (SYNTHROID) 75 MCG tablet ??? metoprolol succinate (TOPROL XL) 25 MG 24 hour release tablet ??? metoprolol succinate (TOPROL XL) 50 MG 24 hour release tablet ??? simvastatin (ZOCOR) 20 MG tablet ??? valsartan (DIOVAN) 160 MG tablet Allergies: Allergies Allergen Reactions ??? Contrast [Iodinated Diagnostic Agents] Anaphylaxis ??? Penicillins Hives Has tolerated ancef per [facility] chart review. ??? Sulfa Antibiotics Hives Past Surgical History: Past Surgical History: Procedure Laterality Date ??? BUNIONECTOMY ??? CATARACT REMOVAL Bilateral ??? HYSTERECTOMY total with BSO ??? SALPINGO-OOPHORECTOMY Bilateral Family History: Family History Problem Relation Age of Onset ??? Arthritis Mother ??? Cancer Mother 73 liver ??? Arthritis Father ??? Kidney/Bladder Disease Father ??? Arthritis Sister ??? Depression Sister ??? High Blood Pressure Sister ??? Anxiety Sister ??? Thyroid Disorder Sister ??? Heart Failure Paternal Grandfather ??? Heart Failure Maternal Grandfather ??? Cancer, Breast Negative Family History ??? Cancer, Ovary Negative Family History ??? Cancer, Endometrial Negative Family History Social History: Social History Tobacco Use Smoking Status Never Smoker Smokeless Tobacco Never Used Review of Systems: Review of Systems CONSTITUTIONAL: No fever EYES: no visual blurring, no double vision ENT: no rhinorrhea, congestion, sore throat RESPIRATORY: no shortness of breath, no cough CARDIOVASCULAR: no palpitations, no chest pain GASTROINTESTINAL: lower abdominal pain and diarrhea; no nausea, vomiting GENITOURINARY: no dysuria MUSCULOSKELETAL: no neck or back pain SKIN: no rash NEUROLOGIC: no headache, no numbness/tingling Remainder of review of systems is negative, please see HPI. Physical Exam: Triage Vitals [01/02/22 1310] Temp 37.8 ??C (100.1 ??F) Temp src Oral Pulse 98 Resp BP 113/59 SpO2 (!) 91 % Constitutional: Pleasant. Cooperative. Eyes: Pupils equally round and reactive. HENT: Head is normal in appearance. Oropharynx is normal with moist mucus membranes. Cardiovascular: Regular rate and rhythm. Respiratory: Normal respiratory effort, lungs are clear bilaterally. GI: Abdomen is soft, non-distended. LLQ tenderness to palpation. No guarding, rebound, or rigidity. : No CVA tenderness to percussion. Skin: Normal, without rash. Neurologic: Cranial nerves grossly intact, normal cognition, no focal deficits. Alert and oriented x3. Psychiatric: Normal affect. Nursing notes and vital signs reviewed. Laboratory/Diagnostic: LABS: Results for orders placed or performed during the hospital encounter of 01/02/22 Basic Metabolic Panel Result Value Ref Range Sodium 140 136 - 145 mmol/L Potassium 4.1 3.5 - 5.1 mmol/L Chloride 103 98 - 109 mmol/L CO2 27 20 - 29 mmol/L Anion Gap 10 7 - 16 mmol/L Calcium 8.9 8.4 - 10.4 mg/dL BUN 24 7 - 26 mg/dL Creatinine 1.10 (H) 0.55 - 1.02 mg/dL GFR, Estimated 51 (L) >60 mL/min/1.73m2 Glucose 116 (H) 70 - 100 mg/dL Complete Blood Count-W/Diff Result Value Ref Range WBC 16.0 (H) 3.5 - 10.5 x10(9)/L RBC 4.14 3.90 - 5.03 x10(12)/L Hemoglobin 12.0 12.0 - 15.5 g/dL HCT 37.2 34.9 - 44.5 % MCV 89.9 80.0 - 100.0 fL MCH 29.0 27.6 - 33.3 pg MCHC 32.3 31.5 - 35.2 g/dL RDW 12.6 11.9 - 15.5 % Platelets 154 150 - 450 x10(9)/L Automated NRBC 0 <=0 /100 WBC Differential Result Value Ref Range RBC Morphology Reviewed Platelet Estimate Adequate Adequate Neutrophil Absolute 12.9 (H) 1.7 - 7.0 10(9)/L Lymphocyte Absolute 1.2 1.0 - 4.8 10(9)/L Monocytes Absolute 1.8 (H) 0.2 - 0.9 10(9)/L Eosinophil Absolute 0.0 0.0 - 0.5 10(9)/L Basophil Absolute 0.0 0.0 - 0.3 10(9)/L IMAGING: CT Abd Pelvis WO IV Cont Final Result COMPARISON: None. TECHNIQUE: Images were obtained through the abdomen and pelvis without contrast. FINDINGS: LUNG BASES: Unremarkable. LIVER: Subcentimeter hepatic cyst. GALLBLADDER AND BILIARY TREE: Layering debris in the gallbladder likely represents sludge or milk ofcalcium. Gallbladder is otherwise unremarkable. PANCREAS: Unremarkable. SPLEEN: Unremarkable. ADRENALS: Unremarkable. KIDNEYS AND URETERS: 2 mm nonobstructive left renal calculi. No hydronephrosis. VESSELS: No abdominal aortic aneurysm. BOWEL:Small hiatal hernia. Scattered colonic diverticula. Diffuse wall thickening in the rectum and sigmoid colon with associated vascular engorgement in the pericolonic fat. Remainder the large and small bowel are unremarkable. Appendix is not discretely seen. BLADDER: Unremarkable. REPRODUCTIVE ORGANS: No pelvic masses. MESENTERY/PERITONEUM: No enlarged mesenteric lymph nodes. No ascites or free air. No focal fluid collection. RETROPERITONEUM: No adenopathy. ABDOMINAL WALL/SOFT TISSUES: Unremarkable. BONES: No destructive osseous lesions.. IMPRESSION: 1. Diffuse findings in the rectum and sigmoid colon is most consistent with nonspecific colitis and proctitis. ED Course: Interventions: All Medication Administration through 01/02/2022 1640 Date/Time Order Dose Route Action Action by 01/02/2022 1639 cefTRIAXone (ROCEPHIN) 2 g in dextrose 50 mL IVPB 2 g Intravenous Started Caridad Nina RN 01/02/2022 1417 sodium chloride 0.9% bolus 1,000 mL 1,000 mL Intravenous Started Marilee Valenzuela RN 01/02/2022 1639 sodium chloride 0.9% bolus 1,000 mL 0 mL Intravenous Infused Caridad Nina RN Nursing notes and vitals were reviewed. Past medical records were reviewed. I performed an exam of the patient as detailed above. I ordered the above labs and imaging. Findings and plan explained to the patient. I fully addressed and answered all questions and concerns the patient had. Patient admitted to the [facility] service. I discussed with Dr. Varela. Last ED Vitals: Temp: 37.8 ??C (100.1 ??F) (01/02 1310) Temp src: Oral (01/02 1310) Pulse: 94 (01/02 1501) Resp: -- BP: 135/70 (01/02 1501) SpO2: 97 % (01/02 1501) Discharge Medications: Medications Prescribed this Visit None MDM/Plan: Michele Angulo is a 81 y.o. female with history of hypertension who presents to the ED with diarrhea andabdominal pain. The differential diagnosis of abdominal pain is broad and includes such etiologies as diverticulitis, colitis, appendicitis, functional bowel disease, constipation, UTI, GIB, pyelonephritis, ureterolithiasis, hernia, etc. Rare and serious causes were considered as well in this patient such as volvulus, abscess, aneurysmal disease, mesenteric ischemia, etc. The workup at this time is consistent with colitis and proctitis . The differential of this includes ischemic, bacterial, idiopathic, autoimmune, etc. Leukocytosis of 16.0. She is afebrile. No evidence of dehydration or electrolyte abnormality. We discussed potential discharge home however, patient is independent living and reports increasing weakness at home and concern for safety. As such, she will be admitted for further evaluation and management. I did discuss with Rosa Elena Foster hospitalist who was agreeable. Antibiotics ord ered, rocephin started, flagyl pending. Stool studies ordered and pending. Patient remained hemodynamically stable prior to admission. Diagnosis: 1. Colitis 2. Proctitis 3. Diarrhea, unspecified type 4. Leukocytosis, unspecified type (HRC) Angeli Amaya PA-C 01/02/22 1640 SOLUTION ARCHITECT documented in this encounter Plan of Treatment Not on filedocumented as of this encounter Procedures Procedure Name Priority Date/Time Associated Comments Diagnosis BASIC METABOLIC PANEL Routine 01/05/2022 7:21 Res ults for this AM [facility] SOLUTION ARCHITECT procedure are i n the results section. COMPLETE BLOOD Routine 01/05/2022 7:21 Results fo r this COUNT-NO DIFF AM [facility] SOLUTION ARCHITECT procedure are in the results section. BASIC METABOLIC PANEL Routine 01/04/2022 11:28 Re sults for this AM [facility] SOLUTION ARCHITECT procedure are i n the results section. COMPLETE BLOOD Routine 01/04/2022 11:28 Results f or this COUNT-NO DIFF AM [facility] SOLUTION ARCHITECT procedure are in the results section. BASIC METABOLIC PANEL Routine 01/03/2022 7:01 Res ults for this AM [facility] SOLUTION ARCHITECT procedure are i n the results section. COMPLETE BLOOD Routine 01/03/2022 7:01 Results fo r this COUNT-NO DIFF AM [facility] SOLUTION ARCHITECT procedure are in the results section. ENTERIC STOOL Routine 01/03/2022 5:30 Results for this PATHOGENS PANEL AM [facility] SOLUTION ARCHITECT procedure ar e in the results section. ENTERIC STOOL Routine 01/03/2022 5:30 Results for this PATHOGENS, MOLECULAR AM [facility] SOLUTION ARCHITECT procedu re are in DETECTION PANEL the results section. C.DIFFICILE Routine 01/03/2022 5:30 Results for this TOXIN,MOLECULAR AM [facility] SOLUTION ARCHITECT procedure ar e in DETECTION the results section. OCCULT BLOOD, EXAM 1 Routine 01/03/2022 5:30 Resu lts for this AM [facility] SOLUTION ARCHITECT procedure are i n the results section. BLOOD CULTURE STAT 01/02/2022 7:20 Results for this PM [facility] SOLUTION ARCHITECT procedure are i n the results section. CBC AND DIFFERENTIAL STAT 01/02/2022 7:20 Resu lts for this PANEL PM [facility] SOLUTION ARCHITECT procedure are i n the results section. BLOOD CULTURE STAT 01/02/2022 7:20 Results for this PM [facility] SOLUTION ARCHITECT procedure are i n the results section. COMPLETE BLOOD STAT 01/02/2022 7:20 Results fo r this COUNT-W/DIFF PM [facility] SOLUTION ARCHITECT procedure are i n the results section. LACTATE REFLEX PANEL STAT 01/02/2022 7:16 Resu lts for this PM [facility] SOLUTION ARCHITECT procedure are i n the results section. BLOOD CULTURE STAT 01/02/2022 7:16 Results for this PM [facility] SOLUTION ARCHITECT procedure are i n the results section. BLOOD CULTURE STAT 01/02/2022 7:16 Results for this PM [facility] SOLUTION ARCHITECT procedure are i n the results section. BASIC METABOLIC PANEL STAT 01/02/2022 7:16 Res ults for this PM [facility] SOLUTION ARCHITECT procedure are i n the results section. 2019 NOVEL STAT 01/02/2022 4:39 Results for this CORONAVIRUS PM [facility] SOLUTION ARCHITECT procedure are i n the results section. CT ABD PELVIS WO IV STAT 01/02/2022 3:21 Resul ts for this CONT PM [facility] SOLUTION ARCHITECT procedure are i n the results section. LACTATE REFLEX PANEL STAT Add-On 01/02/2022 2:44 Resu lts for this PM [facility] SOLUTION ARCHITECT procedure are i n the results section. CBC AND DIFFERENTIAL STAT 01/02/2022 2:44 Resu lts for this PANEL PM [facility] SOLUTION ARCHITECT procedure are i n the results section. PROCALCITONIN STAT Add-On 01/02/2022 2:44 Results for this PM [facility] SOLUTION ARCHITECT procedure are i n the results section. COMPLETE BLOOD STAT 01/02/2022 2:44 Results fo r this COUNT-W/DIFF PM [facility] SOLUTION ARCHITECT procedure are i n the results section. BASIC METABOLIC PANEL STAT 01/02/2022 2:44 Res ults for this PM [facility] SOLUTION ARCHITECT procedure are i n the results section. DIFFERENTIAL STAT 01/02/2022 2:44 Results for this PM [facility] SOLUTION ARCHITECT procedure are i n the results section. documented in this encounter Results (ABNORMAL) Complete Blood Count-No Diff (01/05/2022 7:21 AM [facility] SOLUTION ARCHITECT) [facility] Method Time Signature WBC 6.5 3.5 - 10.5 01/05/2022 [facility] x10(9)/L 7:32 AM [facility] RBC 3.93 3.90 - 01/05/2022 [facility] 5.03 7:32 AM [facility] ARCHIT[facility] x10(12)/L Hemoglobin 11.3 (L) 12.0 - 01/05/2022 [facility] 15.5 g/dL 7:32 AM [facility] HCT 35.2 34.9 - 01/05/2022 [facility] 44.5 % 7:32 AM [facility] MCV 89.6 80.0 - 01/05/2022 [facility] 100.0 fL 7:32 AM [facility] MCH 28.8 27.6 - 01/05/2022 [facility] 33.3 pg 7:32 AM [facility] MCHC 32.1 31.5 - 01/05/2022 [place] 35.2 g/dL 7:32 AM [facility] RDW 12.7 11.9 - 01/05/2022 [facility] 15.5 % 7:32 AM [facility] Platelets 149 (L) 150 - 450 01/05/2022 [place] x10(9)/L 7:32 AM [facility] Automated NRBC 0 <=0 /100 01/05/2022 [facility] WBC 7:32 AM [facility]CH[facility] Specimen Anatomical Collection Method / Collection Time Recei la Time (Source) Location / Volume Laterality Blood Venipuncture / 01/05/2022 7:21 01/05/2022 7:28 Unknown AM [facility] SOLUTION ARCHITECT AM [facility] SOLUTION ARCHITECT Manpreet Choudhary MD LAB_1 Performing Organization Address City/State/ZIP Code Phon e Number [facility] [address] [place] [address] (ABNORMAL) Basic Metabolic Panel (01/05/2022 7:21 AM [facility] SOLUTION ARCHITECT) [facility] Method Time Signature Sodium 139 136 - 145 01/05/2022 [place] mmol/L 8:17 AM [facility] Potassium 3.5 3.5 - 5.1 01/05/2022 [place] mmol/L 8:17 AM [facility] Chloride 107 98 - 109 01/05/2022 [place] mmol/L 8:17 AM [facility] CO2 23 20 - 29 01/05/2022 [place] mmol/L 8:17 AM [facility] Anion Gap 9 7 - 16 01/05/2022 [place] mmol/L 8:17 AM [facility] Calcium 8.2 (L) 8.4 - 10.4 01/05/2022 [place] mg/dL 8:17 AM [facility] BUN 21 7 - 26 01/05/2022 [facility] mg/dL 8:17 AM [facility] Creatinine 1.46 (H) 0.55 - 01/05/2022 [facility] 1.02 mg/dL 8:17 AM [facility] GFR, Estimated 36 (L) >60 01/05/2022 [facility] mL/min/1.7 8:17 AM [facility] 3m2 Glucose 95 70 - 100 01/05/2022 [facility] mg/dL 8:17 AM [facility] Comment: The given reference range is fo r the fasting state. Non-fasting reference range for glucose is 70 - 180 mg/dL. Specimen Anatomical Collection Method / Collection Time Recei la Time (Source) Location / Volume Laterality Blood Venipuncture / 01/05/2022 7:21 01/05/2022 7:28 Unknown AM [facility] SOLUTION ARCHITECT AM [facility] SOLUTION ARCHITECT Manpreet Choudhary MD LAB_1 Performing Organization Address City/State/ZIP Code Phon e Number [facility] [address] [place] [address] (ABNORMAL) Complete Blood Count-No Diff (01/04/2022 11:28 AM [facility] SOLUTION ARCHITECT) [facility] Method Time Signature WBC 12.1 (H) 3.5 - 10.5 01/04/2022 [facility] x10(9)/L 11:41 AM [facility] RBC 4.36 3.90 - 01/04/2022 [facility] 5.03 11:41 AM [facility]CH[facility] x10(12)/L Hemoglobin 12.4 12.0 - 01/04/2022 [facility] 15.5 g/dL 11:41 AM [facility] HCT 39.4 34.9 - 01/04/2022 [facility] 44.5 % 11:41 AM [facility] MCV 90.4 80.0 - 01/04/2022 [facility] 100.0 fL 11:41 AM [facility] MCH 28.4 27.6 - 01/04/2022 [facility] 33.3 pg 11:41 AM [facility] MCHC 31.5 31.5 - 01/04/2022 [facility] 35.2 g/dL 11:41 AM [facility] RDW 13.0 11.9 - 01/04/2022 [facility] 15.5 % 11:41 AM [facility] Platelets 188 150 - 450 01/04/2022 [facility] x10(9)/L 11:41 AM [facility]CH[facility] Automated NRBC 0 <=0 /100 01/04/2022 [facility] WBC 11:41 AM [facility]CH[facility] Specimen Anatomical Collection Method / Collection Time Recei la Time (Source) Location / Volume Laterality Blood Venipuncture / 01/04/2022 11:28 2 Unknown AM [facility] SOLUTION ARCHITECT 11:30 AM [facility] SOLUTION ARCHITECT Manpreet Choudhary MD LAB_1 Performing Organization Address City/State/ZIP Code Phon e Number [facility] [address] [place] [address] (ABNORMAL) Basic Metabolic Panel (01/04/2022 11:28 AM [facility] SOLUTION ARCHITECT) [facility] Method Time Signature Sodium 138 136 - 145 01/04/2022 [facility] mmol/L 12:05 PM [facility] Potassium 4.0 3.5 - 5.1 01/04/2022 [facility] mmol/L 12:05 PM [facility] Chloride 106 98 - 109 01/04/2022 [facility] mmol/L 12:05 PM [facility] CO2 24 20 - 29 01/04/2022 [facility] mmol/L 12:05 PM [facility] Anion Gap 8 7 - 16 01/04/2022 [facility] mmol/L 12:05 PM [facility] Calcium 8.4 8.4 - 10.4 01/04/2022 [facility] mg/dL 12:05 PM [facility] BUN 18 7 - 26 01/04/2022 [facility] mg/dL 12:05 PM [facility] Creatinine 1.16 (H) 0.55 - 01/04/2022 [facility] 1.02 mg/dL 12:05 PM [facility] GFR, Estimated 48 (L) >60 01/04/2022 [facility] mL/min/1.7 12:05 PM [facility] 3m2 Glucose 105 (H) 70 - 100 01/04/2022 [facility] mg/dL 12:05 PM [facility] Comment: The given reference range is fo r the fasting state. Non-fasting reference range for glucose is 70 - 180 mg/dL. Specimen Anatomical Collection Method / Collection Time Recei la Time (Source) Location / Volume Laterality Blood Venipuncture / 01/04/2022 11:28 2 Unknown AM [facility] SOLUTION ARCHITECT 11:30 AM [facility] SOLUTION ARCHITECT Narrative [facility] - 01/04/2022 12:05 PM [facility] SOLUTION ARCHITECT The National Kid[employer] Disease Education Pr ogram suggests measuring Cystatin C in patients with eGFRcrea of 45 to 59 ml/mi n/1.73^2 who do not have other markers of kidney damage (i.e. elevated urine Album in/Creatinine Ratio or a prior Cystatin C confirming the presence of chronic kidne y disease). Manpreet Choudhary MD LAB_1 Performing Organization Address City/State/ZIP Code Phon e Number [facility] [address] [place] [address] (ABNORMAL) Complete Blood Count-No Diff (01/03/2022 7:01 AM [facility] SOLUTION ARCHITECT) [facility] Method Time Signature WBC 15.8 (H) 3.5 - 10.5 01/03/2022 [facility] x10(9)/L 7:47 AM [facility] RBC 3.87 (L) 3.90 - 01/03/2022 [facility] 5.03 7:47 AM [facility]CHIT[facility] x10(12)/L Hemoglobin 11.2 (L) 12.0 - 01/03/2022 [facility] 15.5 g/dL 7:47 AM [facility] HCT 34.6 (L) 34.9 - 01/03/2022 [facility] 44.5 % 7:47 AM [facility] MCV 89.4 80.0 - 01/03/2022 [facility] 100.0 fL 7:47 AM [facility]CH[facility] MCH 28.9 27.6 - 01/03/2022 [facility] 33.3 pg 7:47 AM [facility]CH[facility] MCHC 32.4 31.5 - 01/03/2022 [facility] 35.2 g/dL 7:47 AM [facility] RDW 13.1 11.9 - 01/03/2022 [facility] 15.5 % 7:47 AM [facility] Platelets 150 150 - 450 01/03/2022 [facility] x10(9)/L 7:47 AM [facility] Automated NRBC 0 <=0 /100 01/03/2022 [facility] WBC 7:47 AM [facility]CH[facility] Specimen Anatomical Collection Method / Collection Time Recei la Time (Source) Location / Volume Laterality Blood Venipuncture / 01/03/2022 7:01 01/03/2022 7:41 Unknown AM [facility] SOLUTION ARCHITECT AM [facility] SOLUTION ARCHITECT Cyn Varela DO LAB_1 Performing Organization Address City/State/ZIP Code Phon e Number [facility] [address] [place] [address] (ABNORMAL) Basic Metabolic Panel (01/03/2022 7:01 AM [facility] SOLUTION ARCHITECT) [facility] Method Time Signature Sodium 139 136 - 145 01/03/2022 [facility] mmol/L 8:26 AM [facility] Potassium 3.4 (L) 3.5 - 5.1 01/03/2022 [facility] mmol/L 8:26 AM [facility] Chloride 103 98 - 109 01/03/2022 [facility] mmol/L 8:26 AM [facility] CO2 27 20 - 29 01/03/2022 [facility] mmol/L 8:26 AM [facility] Anion Gap 9 7 - 16 01/03/2022 [facility] mmol/L 8:26 AM [facility] Calcium 8.3 (L) 8.4 - 10.4 01/03/2022 [facility] mg/dL 8:26 AM [facility] BUN 23 7 - 26 01/03/2022 [facility] mg/dL 8:26 AM [facility] Creatinine 1.04 (H) 0.55 - 01/03/2022 [facility] 1.02 mg/dL 8:26 AM [facility] GFR, Estimated 55 (L) >60 01/03/2022 [facility] mL/min/1.7 8:26 AM [facility] 3m2 Glucose 108 (H) 70 - 100 01/03/2022 [facility] mg/dL 8:26 AM [facility] Comment: The given reference range is fo r the fasting state. Non-fasting reference range for glucose is 70 - 180 mg/dL. Specimen Anatomical Collection Method / Collection Time Recei la Time (Source) Location / Volume Laterality Blood Venipuncture / 01/03/2022 7:01 01/03/2022 7:41 Unknown AM [facility] SOLUTION ARCHITECT AM [facility] SOLUTION ARCHITECT Narrative [facility] - 01/03/2022 8:26 A M [facility] SOLUTION ARCHITECT The [employer] Kid[employer] Education Pr ogram suggests measuring Cystatin C in patients with eGFRcrea of 45 to 59 ml/mi n/1.73^2 who do not have other markers of kidney damage (i.e. elevated urine Album in/Creatinine Ratio or a prior Cystatin C confirming the presence of chronic kidne y disease). Cyn Varela DO LAB_1 Performing Organization Address City/[facility]/ZIP [facility] [place], [place] Phon e Number [facility] [address] [place] [address] (ABNORMAL) Occult Blood, Exam 1 (01/03/2022 5:30 AM AWS SOLUTION ARCHITECT) Patholo gist Method Time Signature Occult Blood Positive (A) Negative 01/03/2022 [facility] 6:01 AM [facility] SOL[facility]CHITECT [facility]ORATORY Specimen Anatomical Collection Method Collection Time Receive d Time (Source) Location / / Volume Laterality Stool 01/03/2022 5:30 AM 2 5:37 AWS SOLUTION ARCHITECT AM AWS SOLUTION ARCHITECT Cyn Varela DO LAB_1 Performing Organization Address [facility] Phon e Number [facility] [address] [place] [address] Enteric Stool Pathogens, Molecular Detection Panel (01/03/2022 5:30 AM AWS SOLUTION ARCHITECT) Analysis Performed Patholog ist Time At Signature Campylobacter Not Not MOLECULAR BLOOD 01/03/2022 [facility] Detected Detected CULTURE 1:26 PM HOSPITAL IDENTIFICATION [facility] SOLUTION ARCHITECT Salmonella Not Not MOLECULAR BLOOD 01/03/2022 [facility] Species Detected Detected CULTURE 1:26 PM HOSPITAL IDENTIFICATION [facility] SOLUTION ARCHITECT Shigella Species Not Not MOLECULAR BLOOD 01/03/2022 [facility] Detected Detected CULTURE 1:26 PM HOSPITAL IDENTIFICATION [facility] SOLUTION ARCHITECT Vibrio Group Not Not MOLECULAR BLOOD 01/03/2022 [facility] Detected Detected CULTURE 1:26 PM HOSPITAL IDENTIFICATION AWS SOLUTION ARCHITECT Shiga toxin 1 Not Not MOLECULAR BLOOD 01/03/2022 [facility] Detected Detected CULTURE 1:26 PM HOSPITAL IDENTIFICATION AWS SOLUTION ARCHITECT Shiga toxin 2 Not Not MOLECULAR BLOOD 01/03/2022 [facility] Detected Detected CULTURE 1:26 PM HOSPITAL IDENTIFICATION AWS SOLUTION ARCHITECT Norovirus Not Not MOLECULAR BLOOD 01/03/2022 [facility] Detected Detected CULTURE 1:26 PM HOSPITAL IDENTIFICATION AWS SOLUTION ARCHITECT Rotavirus Not Not MOLECULAR BLOOD 01/03/2022 [facility] Detected Detected CULTURE 1:26 PM HOSPITAL IDENTIFICATION AWS SOLUTION ARCHITECT Yersinia Not Not MOLECULAR BLOOD 01/03/2022 [facility] enterocolitica Detected Detected CULTURE 1:26 PM HOSPITAL IDENTIFICATION AWS SOLUTION ARCHITECT Specimen Anatomical Collection Method Collection Time Receive d Time (Source) Location / / Volume Laterality Stool 01/03/2022 5:30 AM 2 5:38 [facility] SOLUTION ARCHITECT AM AWS SOLUTION ARCHITECT Narrative [facility] - 01/03/2022 1:26 PM CS T Shiga toxin producing E. coli (STEC) typically harbor one or both genes that encode for Shiga toxins 1 and 2. Testing is performed by an automated sys tem utilizing reverse retail warehouse associate (RT), polymerase chain reaction (PCR), and array hybridization. Shiga toxin producing E. coli (STEC) typ ically harbor one or both genes that encode for Shiga toxins 1 and 2. Testing is performed by an automated sys tem utilizing reverse retail warehouse associate (RT), polymerase chain reaction (PCR), and array hybridization. Angeli Amaya PA-C LAB_1 Performing Organization Address City/[facility]/ZIP [facility] [place], [place] Phon e Number [address] [address] (ABNORMAL) C.Difficile Toxin,Molecular Detection,This order expires in 24 hours. Do NOT collect after: 01/03/2022; at: 2:02 PM (01/03/2022 5:30 AM AWS SOLUTION ARCHITECT) [employer] Method Time Signature C.difficile Detected (A) Not Detected 01/03/2022 [facility] by PCR 6:31 AM [facility]CHIT[facility]ATORY Specimen Anatomical Collection Method Collection Time Receive d Time (Source) Location / / Volume Laterality Stool 01/03/2022 5:30 AM 5:37 [facility] SOLUTION ARCHITECT AM AWS SOLUTION ARCHITECT [facility] - 01/03/2022 6:31 A M AWS SOLUTION ARCHITECT Methodology: Qualitative real-time PCR a ssay to detect the Clostridium difficile toxin B gene. Cyn Varela DO LAB_1 Performing Organization Address City/State/ZIP [facility] e Number [facility] [address] [place] [address] Blood Culture (01/02/2022 7:20 PM AWS SOLUTION ARCHITECT) [employer] Method Time Signature Blood Culture No Growth LAB 01/08/2022 [facility] at 5 Days ETEST 1:02 AM [facility] SOLUTION ARCHITECT HOSPITAL METHOD Specimen Anatomical Collection Method / Collection Time Recei la Time (Source) Location / Volume Laterality Blood (Arm, Venipuncture 01/02/2022 7:20 01/02/2022 7 :27 right) Butterfly / Unknown PM AWS SOLUTION ARCHITECT PM AWS SOLUTION ARCHITECT Cyn Varela DO LAB_1 Performing Organization Address City/State/[place] [address] (ABNORMAL) Complete Blood Count-W/Diff (01/02/2022 7:20 PM AWS SOLUTION ARCHITECT) [facility] Method Time Signature WBC 19.5 (H) 3.5 - 10.5 01/02/2022 [facility] x10(9)/L 7:31 PM [facility] SOLUTION ARCHIT[facility]ATORY RBC 4.05 3.90 - 01/02/2022 [facility] 5.03 7:31 PM [facility] SOLUTION ARCHITECT [facility]ATORY x10(12)/L Hemoglobin 11.9 (L) 12.0 - 01/02/2022 [facility] 15.5 g/dL 7:31 PM [facility] SOLUTION ARCHITECT [facility]ATORY HCT 36.3 34.9 - 01/02/2022 [facility] 44.5 % 7:31 PM [facility] SOLUTION ARCHITECT [facility] MCV 89.6 80.0 - 01/02/2022 [facility] 100.0 fL 7:31 PM [facility] SOLUTION ARCHITECT [facility]ORY MCH 29.4 27.6 - 01/02/2022 [facility] 33.3 pg 7:31 PM [facility] SOLUTION ARCHITECT [facility]ORY MCHC 32.8 31.5 - 01/02/2022 [facility] 35.2 g/dL 7:31 PM [facility] SOLUTION ARCHITECT [facility]ORY RDW 12.8 11.9 - 01/02/2022 [facility] 15.5 % 7:31 PM [facility] SOLUTION ARCHITECT [facility]ORY Platelets 153 150 - 450 01/02/2022 [facility] x10(9)/L 7:31 PM [facility] SOLUTION ARCHITECT [facility] Automated NRBC 0 <=0 /100 01/02/2022 [facility] WBC 7:31 PM [facility] ARCHITECT [facility] Neutrophil 16.5 (H) 1.7 - 7.0 01/02/2022 [facility] Absolute 10(9)/L 7:31 PM [facility] SOLUTION ARCHITECT [facility]ORY Lymphocyte 0.6 (L) 1.0 - 4.8 01/02/2022 [facility] Absolute 10(9)/L 7:31 PM [facility] SOL[facility] ARCHITECT [facility] Monocytes 2.1 (H) 0.2 - 0.9 01/02/2022 [facility] Absolute 10(9)/L 7:31 PM [facility] ARCHITECT [facility] Eosinophil 0.1 0.0 - 0.5 01/02/2022 [facility] Absolute 10(9)/L 7:31 PM [facility]UTION ARCHITECT [facility] Basophil 0.1 0.0 - 0.3 01/02/2022 [facility] Absolute 10(9)/L 7:31 PM [facility] SOLUTION ARCHITECT [facility] Immature Gran % 0.9 (H) 0.0 - 0.5 01/02/2022 [facility] % 7:31 PM [facility] SOLUTION ARCHITECT LAB[facility]ATORY Specimen Anatomical Collection Method / Collection Time Recei la Time (Source) Location / Volume Laterality Blood (Arm, Venipuncture 01/02/2022 7:20 01/02/2022 7 :27 right) Butterfly / Unknown PM [facility] SOLUTION ARCHITECT PM AWS SOLUTION ARCHITECT Cyn Varela DO LAB_1 Performing Organization Address [facility] Phon e Number [facility] [address] [place] [address] Blood Culture (01/02/2022 7:16 PM AWS SOLUTION ARCHITECT) [facility] Method Time Signature Blood Culture No Growth RH LAB 01/08/2022 [facility] at 5 Days ETEST 1:02 AM [facility] SOLUTION ARCHITECT HOSPITAL METHOD Specimen Anatomical Collection Method / Collection Time Recei la Time (Source) Location / Volume Laterality Blood (Arm, Venipuncture 01/02/2022 7:16 01/02/2022 7 :27 left) Butterfly / Unknown PM AWS SOLUTION ARCHITECT PM AWS SOLUTION ARCHITECT Cyn Varela DO LAB_1 Performing Organization Address [facility] Phon e Number [address] [address] Lactate Reflex Panel if Q2 Hour >= 2.0 (01/02/2022 7:16 PM AWS SOLUTION ARCHITECT) athologist Signature Lactate, Whole 1.10 0.50 - 01/02/2022 [facility] Blood 2.00 7:32 PM [facility] SOLUTION ARCHITECT [facility]ORY mmol/L Specimen Anatomical Collection Method / Collection Time Recei la Time (Source) Location / Volume Laterality Blood (Arm, Venipuncture 01/02/2022 7:16 01/02/2022 7 :28 left) Butterfly / Unknown PM [facility] SOLUTION ARCHITECT PM AWS SOLUTION ARCHITECT Narrative [facility] - 01/02/2022 7:32 P M AWS SOLUTION ARCHITECT Reference range for healthy individuals when sepsis is not suspected is 0.5-2.2 mmol/L Cyn Kishore Varela DO LAB_1 Performing Organization Address [facility]/State/ZIP Code Phon e Number [facility] [address] [place] [address] (ABNORMAL) Basic Metabolic Panel (01/02/2022 7:16 PM AWS SOLUTION ARCHITECT) [facility] Method Time Signature Sodium 141 136 - 145 01/02/2022 [facility] mmol/L 7:49 PM [facility] SOLUTION ARCHITECT [facility]ORY Potassium 3.7 3.5 - 5.1 01/02/2022 [facility] mmol/L 7:49 PM [facility] SOLUTION ARCHITECT LAB[facility]ATORY Chloride 103 98 - 109 01/02/2022 [facility] mmol/L 7:49 PM [facility] SOLUTION ARCHITECT [facility]ORY CO2 24 20 - 29 01/02/2022 [facility] mmol/L 7:49 PM [facility] SOLUTION ARCHITECT [facility] Anion Gap 14 7 - 16 01/02/2022 [facility] mmol/L 7:49 PM [facility] SOLUTION ARCHITECT [facility] Calcium 8.6 8.4 - 10.4 01/02/2022 [facility] mg/dL 7:49 PM [facility] SOLUTION ARCHITECT [facility] BUN 23 7 - 26 01/02/2022 [facility] mg/dL 7:49 PM [facility] ARCHITECT [facility] Creatinine 1.07 (H) 0.55 - 01/02/2022 [facility] 1.02 mg/dL 7:49 PM [facility] SOL[facility] ARCHITECT [facility] GFR, Estimated 53 (L) >60 01/02/2022 [facility] mL/min/1.7 7:49 PM [facility] SOLUTION ARCHITECT [facility]ORY 3m2 Glucose 128 (H) 70 - 100 01/02/2022 [facility] mg/dL 7:49 PM [facility] SOLUTION ARCHITECT [facility]ORY Comment: The given reference range is fo r the fasting state. Non-fasting reference range for glucose is 70 - 180 mg/dL. Specimen Anatomical Collection Method / Collection Time Recei la Time (Source) Location / Volume Laterality Blood (Arm, Venipuncture 01/02/2022 7:16 01/02/2022 7 :27 left) Butterfly / Unknown PM [facility] SOLUTION ARCHITECT PM AWS SOLUTION ARCHITECT Narrative [facility] - 01/02/2022 7:49 P M AWS SOLUTION ARCHITECT The National Kidney Disease Education Pr ogram suggests measuring Cystatin C in patients with eGFRcrea of 45 to 59 ml/mi n/1.73^2 who do not have other markers of kidney damage (i.e. elevated urine Album in/Creatinine Ratio or a prior Cystatin C confirming the presence of chronic kidne y disease). Cyn Varela DO LAB_1 Performing Organization Address City/State/ZIP Code Phon e Number [facility] [address] [place] [address] COVID (Rapid Yellow Kit, Nares) - Asymptomatic [facility] ED ONLY (01/02/2022 4:39 PM AWS SOLUTION ARCHITECT) [facility] Method Time Signature COVID-19 Not Not 01/02/2022 [facility] Interpretation Detected Detected 6:12 PM [facility] SOLUTION ARCHITECT LAB[facility]ATORY Source Nares, left 01/02/2022 [facility] and right 6:12 PM [facility] SOLUTION ARCHITECT LAB[facility]ATORY Specimen Anatomical Collection Method Collection Time Receive d Time (Source) Location / / Volume Laterality Swab (Source ENTIRE ANTERIOR Non-blood 01/02/2022 4:39 PM 2021 4:45 Required) NARIS / Unknown Collection / AWS SOLUTION ARCHITECT PM AWS SOLUTION ARCHITECT Unknown Narrative [facility] - 01/02/2022 6:12 P M AWS SOLUTION ARCHITECT Test performed by nucleic acid amplification technology (NAAT). This test has been authorized by the FDA under an Emergency Use Authorization (EUA) for use by authorized laboratories. Angeli Amaya PA-C LAB_1 Performing Organization Address [facility] Phon e Number [facility] [address] [place] [address] CT Abd Pelvis WO IV Cont (01/02/2022 3:21 PM AWS SOLUTION ARCHITECT) Anatomical Region Laterality Modality Abdomen, Pelvis Computed Tomography Specimen (Source) Anatomical Collection Method Collection Time Re ceived Time Location / / Volume Laterality 01/02/2022 3:12 PM [facility] SOLUTION ARCHITECT Impressions 01/02/2022 3:37 PM [facility] SOLUTION ARCHITECT COMPARISON: None. TECHNIQUE: Images were obtained through the abdomen and pelvis without contrast. FINDINGS: LUNG BASES: Unremarkable. LIVER: Subcentimeter hepatic cyst. GALLBLADDER AND BILIARY TREE: Layering d ebris in the gallbladder likely represents sludge or milk of calcium. Gallbladder is otherwise unremarkable. PANCREAS: Unremarkable. SPLEEN: Unremarkable. ADRENALS: Unremarkable. KIDNEYS AND URETERS: 2 mm nonobstructive left renal calculi. No hydronephrosis. VESSELS: No abdominal aortic aneurysm. BOWEL:Small hiatal hernia. Scattered col onic diverticula. Diffuse wall thickening in the rectum and sigmoid colon with associated vascular engorgement in the pericolonic fat. Remainder the large and sma ll bowel are unremarkable. Appendix is n ot discretely seen. BLADDER: Unremarkable. REPRODUCTIVE ORGANS: No pelvic masses. MESENTERY/PERITONEUM: No enlarged mesent anna lymph nodes. No ascites or free air. No focal fluid collection. RETROPERITONEUM: No adenopathy. ABDOMINAL WALL/SOFT TISSUES: Unremarkabl e. BONES: No destructive osseous lesions.. IMPRESSION: ?? 1. Diffuse findings in the rectum and si gmoid colon is most consistent with nonspecific colitis and proctitis. Procedure Note Fito Joyner MD - 01/02/2022For matting of this note might be different from the original. IMPRESSION COMPARISON: None. TECHNIQUE: Images were obtained through the abdomen and pelvis without contrast. FINDINGS: LUNG BASES: Unremarkable. LIVER: Subcentimeter hepatic cyst. GALLBLADDER AND BILIARY TREE: Layering d ebris in the gallbladder likely represents sludge or milk of calcium. Gallbladder is otherwise unremarkable. PANCREAS: Unremarkable. SPLEEN: Unremarkable. ADRENALS: Unremarkable. KIDNEYS AND URETERS: 2 mm nonobstructive left renal calculi. No hydronephrosis. VESSELS: No abdominal aortic aneurysm. BOWEL:Small hiatal hernia. Scattered col onic diverticula. Diffuse wall thickening in the rectum and sigmoid colon with associated vascular engorgement in the pericolonic fat. Remainder the large and small bowel are unremarkable. Appendix is not discre tely seen. BLADDER: Unremarkable. REPRODUCTIVE ORGANS: No pelvic masses. MESENTERY/PERITONEUM: No enlarged mesent anna lymph nodes. No ascites or free air. No focal fluid collection. RETROPERITONEUM: No adenopathy. ABDOMINAL WALL/SOFT TISSUES: Unremarkabl e. BONES: No destructive osseous lesions.. IMPRESSION: 1. Diffuse findings in the rectum and si gmoid colon is most consistent with nonspecific colitis and proctitis. Angeli Amaya PA-C RAD CT Lactate Reflex Panel (01/02/2022 2:44 PM AWS SOLUTION ARCHITECT) athologist Signature Lactate 1.4 0.5 - 2.0 01/02/2022 [facility] mmol/L 4:44 PM AWS SOLUTION ARCHITECT LABORATORY Specimen Anatomical Collection Method / Collection Time Recei la Time (Source) Location / Volume Laterality Blood Venipuncture / 01/02/2022 2:44 01/02/2022 2:48 Unknown PM [facility] SOLUTION ARCHITECT PM AWS SOLUTION ARCHITECT Narrative [facility] - 01/02/2022 4:44 P M AWS SOLUTION ARCHITECT Reference range for healthy individuals when sepsis is not suspected is 0.5-2.2 mmol/L Angeli E Jose Luis FLORES LAB_1 Performing Organization Address City/State/ZIP Code Phon e Number [facility] [address] [place] [address] (ABNORMAL) Procalcitonin (01/02/2022 2:44 PM AWS SOLUTION ARCHITECT) Analysis Performed At Patho logist Time Signature Procalcitonin 1.22 (H) <=0.24 01/02/2022 [facility] ng/mL 5:07 PM [facility] SOLUTION ARCHITECT LABORATORY Specimen Anatomical Collection Method / Collection Time Recei la Time (Source) Location / Volume Laterality Blood Venipuncture / 01/02/2022 2:44 01/02/2022 2:48 Unknown PM [facility] SOLUTION ARCHITECT PM AWS SOLUTION ARCHITECT Narrative [facility] - 01/02/2022 5:07 P M AWS SOLUTION ARCHITECT Differential Diagnosis of Lower Respiratory Tract Infection <0.10: Indicates absence of bacterial in fections. Use of antibiotics strongly discouraged. 0.10-0.24: Bacterial infection unlikely. Use of antibiotics is discouraged. 0.25-0.49: Bacterial infection possible. Antibiotic treatment is recommended. >= 0.50: Suggestive of the presence of b acterial infection. Antibiotic treatment is strongly recommended. Differential Diagnosis of Systemic Bacte rial Infection <0.50: Systemic infection is not likely. Local bacterial infection is possible. Low risk for progression to severe systemic infection. 0.50-1.99: Systemic infection possible, but various conditions are also known to induce Procalcitonin. Moderate risk for progression to severe systemic infection. The patient should be closely monitored both clinically and by reassessing Proc alcitonin levels within 6-24 hours. 2.0-9.99: Systemic infection is likely, unless other causes are known. High risk for progression to severe systemic infection. >= 10.00: Important systemic inflammator y response, almost exclusively due to severe bacterial sepsis or septic shock. High likelihood of severe sepsis or septic shock. Clinicans should use the PCT clinical re sults in conjunction with other laboratory findings and clinical signs and should interpret the PCT results in the context of the patient's clinical situation. Angeli Villa Stjernholm PA-C LAB_1 Performing Organization Address City/[facility] Phon e Number [facility] [address] [place] [address] (ABNORMAL) Differential (01/02/2022 2:44 PM AWS SOLUTION ARCHITECT) [facility] Method Time Signature RBC Morphology Reviewed 01/02/2022 [facility] 3:28 PM [facility] SOLUTION ARCHITECT LAB[facility]ATORY Platelet Adequate Adequate 01/02/2022 [facility] Estimate 3:28 PM [facility] SOLUTION ARCHITECT [facility]ORY Neutrophil 12.9 (H) 1.7 - 7.0 01/02/2022 [facility] Absolute 10(9)/L 3:28 PM [facility] SOLUTION ARCHITECT [facility] Lymphocyte 1.2 1.0 - 4.8 01/02/2022 [facility] Absolute 10(9)/L 3:28 PM [facility] SOLUTION ARCHITECT [facility] Monocytes 1.8 (H) 0.2 - 0.9 01/02/2022 [facility] Absolute 10(9)/L 3:28 PM [facility] SOLUTION ARCHITECT [facility] Eosinophil 0.0 0.0 - 0.5 01/02/2022 [facility] Absolute 10(9)/L 3:28 PM [facility]UTION ARCHITECT [facility] Basophil 0.0 0.0 - 0.3 01/02/2022 [facility] Absolute 10(9)/L 3:28 PM [facility] SOLUTION ARCHITECT [facility]ORY Specimen Anatomical Collection Method / Collection Time Recei la Time (Source) Location / Volume Laterality Blood Venipuncture / 01/02/2022 2:44 01/02/2022 2:48 Unknown PM [facility] SOLUTION ARCHITECT PM AWS SOLUTION ARCHITECT Winsome Hanley DO LAB_1 Performing Organization Address [facility] Phon e Number [facility] [address] [place] [address] (ABNORMAL) Complete Blood Count-W/Diff (01/02/2022 2:44 PM AWS SOLUTION ARCHITECT) [facility] Method Time Signature WBC 16.0 (H) 3.5 - 10.5 01/02/2022 [facility] x10(9)/L 3:28 PM [facility] SOLUTION ARCHITECT [facility]ATORY RBC 4.14 3.90 - 01/02/2022 [facility] 5.03 3:28 PM [facility] SOLUTION ARCHITECT [facility] x10(12)/L Hemoglobin 12.0 12.0 - 01/02/2022 [facility] 15.5 g/dL 3:28 PM [facility] SOLUTION ARCHITECT [facility] HCT 37.2 34.9 - 01/02/2022 [facility] 44.5 % 3:28 PM [facility] SOLUTION ARCHITECT [facility] MCV 89.9 80.0 - 01/02/2022 [facility] 100.0 fL 3:28 PM [facility] SOLUTION ARCHITECT [facility] MCH 29.0 27.6 - 01/02/2022 [facility] 33.3 pg 3:28 PM [facility] SOLUTION ARCHITECT [facility] MCHC 32.3 31.5 - 01/02/2022 [facility] 35.2 g/dL 3:28 PM [facility] SOLUTION ARCHITECT [facility] RDW 12.6 11.9 - 01/02/2022 [facility] 15.5 % 3:28 PM [facility] SOLUTION ARCHITECT [facility] Platelets 154 150 - 450 01/02/2022 [facility] x10(9)/L 3:28 PM [facility] SOLUTION ARCHITECT [facility] Automated NRBC 0 <=0 /100 01/02/2022 [facility] WBC 3:28 PM [facility] SOLUTION ARCHITECT [facility]ORY Specimen Anatomical Collection Method / Collection Time Recei la Time (Source) Location / Volume Laterality Blood Venipuncture / 01/02/2022 2:44 01/02/2022 2:48 Unknown PM [facility] SOLUTION ARCHITECT PM [facility] SOLUTION ARCHITECT Winsome Hanley DO LAB_1 Performing Organization Address City/State/ZIP Code Phon e Number [facility] [address] [place] [address] (ABNORMAL) Basic Metabolic Panel (01/02/2022 2:44 PM AWS SOLUTION ARCHITECT) [facility] Method Time Signature Sodium 140 136 - 145 01/02/2022 [facility] mmol/L 3:11 PM [facility] SOLUTION ARCHITECT [facility]ATORY Potassium 4.1 3.5 - 5.1 01/02/2022 [facility] mmol/L 3:11 PM [facility] SOLUTION ARCHITECT [facility]ORY Chloride 103 98 - 109 01/02/2022 [facility] mmol/L 3:11 PM [facility] SOLUTION ARCHITECT [facility] CO2 27 20 - 29 01/02/2022 [facility] mmol/L 3:11 PM [facility] SOLUTION ARCHITECT [facility]ORY Anion Gap 10 7 - 16 01/02/2022 [facility] mmol/L 3:11 PM [facility] SOLUTION ARCHITECT [facility]ORY Calcium 8.9 8.4 - 10.4 01/02/2022 [facility] mg/dL 3:11 PM [facility] SOLUTION ARCHITECT [facility] BUN 24 7 - 26 01/02/2022 [facility] mg/dL 3:11 PM [facility] SOLUTION ARCHITECT [facility] Creatinine 1.10 (H) 0.55 - 01/02/2022 [facility] 1.02 mg/dL 3:11 PM [facility] SOLUTION ARCHITECT [facility] GFR, Estimated 51 (L) >60 01/02/2022 [facility] mL/min/1.7 3:11 PM [facility] SOLUTION ARCHITECT [facility] 3m2 Glucose 116 (H) 70 - 100 01/02/2022 [facility] mg/dL 3:11 PM [facility] SOLUTION ARCHITECT [facility]ORY Comment: The given reference range is fo r the fasting state. Non-fasting reference range for glucose is 70 - 180 mg/dL. Specimen Anatomical Collection Method / Collection Time Recei la Time (Source) Location / Volume Laterality Blood Venipuncture / 01/02/2022 2:44 01/02/2022 2:48 Unknown PM AWS SOLUTION ARCHITECT PM AWS SOLUTION ARCHITECT Narrative [facility] - 01/02/2022 3:11 P M AWS SOLUTION ARCHITECT The National Kidney Disease Education Pr ogram suggests measuring Cystatin C in patients with eGFRcrea of 45 to 59 ml/mi n/1.73^2 who do not have other markers of kidney damage (i.e. elevated urine Album in/Creatinine Ratio or a prior Cystatin C confirming the presence of chronic kidne y disease). 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, exce pt isthmus Hypothyroidism (HRC) Unspecified hypothyroidism Essential hypertension (HRC) Unspecified essential hypertension Hyperlipidemia (HRC) Other and unspecified hyperlipidemia Triage Assessment Note - Caridad Nina RN - 01/02/2022 1:03 PM CST Pt arrived via EMS- she lives alone- C/o diarrhea throughout today- mild Abd cramping- denies N/V- she feels a bit shaky and is a bit nervous to be at home alone feeling as she is now SOLUTION ARCHITECT documented in this encounter Administered Medications Inactive Administered Medications - up to 3 most recent administrations Medication Order MAR Action Action Date Dose Rate Site acetaminophen (TYLENOL) tablet Given 01/02/2022 11:29 PM AWS SOLUTION ARCHITECT 650 mg 325-650 mg 325-650 mg, Oral, Q4H PRN, Pain, Starting on Sun01/02/22 at 1855, Until Sun01/05/22 at 1505 cefTRIAXone (ROCEPHIN) 2 g in dextrose Started 01/02/2022 4:39 PM AWS SOLUTION ARCHITECT 2 g 100 mL/hr 50 mL IVPB 2 g, Intravenous, Administer over 30 Minutes, ONCE, On Sun01/02/22 at 1630, For 1 dose cholecalciferol (VITAMIN D3) tablet Given 01/05/2022 6:36 AM AWS SOLUTION ARCHITECT 1,000 Units 1,000 Units 1,000 Units, Oral, DAILY, First dose on Sun01/03/22 at 0600, Until Discontinued, 1000 units = 25 mcg Given 01/04/2022 7:05 AM AWS SOLUTION ARCHITECT 1,000 Units Given 01/03/2022 5:41 AM AWS SOLUTION ARCHITECT 1,000 Units cyanocobalamin (VITAMIN B12) tablet 1,000 Given 2021 6:36 AM AWS SOLUTION ARCHITECT 1,000 mcg mcg 1,000 mcg, Oral, DAILY, First dose on Sun01/03/22 at 0600, Until Discontinued Given 01/04/2022 7:05 AM AWS SOLUTION ARCHITECT 1,000 mcg Given 01/03/2022 5:41 AM AWS SOLUTION ARCHITECT 1,000 mcg dextrose 5%-NaCl 0.45%-KCl 20 mEq/liter Started 01/05/2022 4:4 5 AM AWS SOLUTION ARCHITECT 50 mL/hr infusion Intravenous, at 50 mL/hr, CONTINUOUS, Starting on Sun01/02/22 at 1915 Started 01/04/2022 8:00 AM AWS SOLUTION ARCHITECT 50 mL/hr New Bag Started 01/03/2022 1:37 PM AWS SOLUTION ARCHITECT 50 mL/hr levothyroxine (SYNTHROID) tablet 75 mcg Given 01/04/2022 11:30 PM AWS SOLUTION ARCHITECT 75 mcg 75 mcg, Oral, DAILY, First dose on Sun01/02/22 at 2300, Until Discontinued, Take on an empty stomach, one hour before meals or two hours after. Given 01/03/2022 11:03 PM AWS SOLUTION ARCHITECT 75 mcg Given 01/02/2022 11:26 PM AWS SOLUTION ARCHITECT 75 mcg losartan (COZAAR) tablet 100 mg Given 01/05/2022 6:36 AM AWS SOLUTION ARCHITECT 100 mg 100 mg, Oral, DAILY, First dose on Sun01/03/22 at 0600, Until Discontinued Given 01/04/2022 7:05 AM AWS SOLUTION ARCHITECT 100 mg Given 01/03/2022 5:41 AM AWS SOLUTION ARCHITECT 100 mg melatonin tablet 3 mg Given 01/04/2022 11:30 PM AWS SOLUTION ARCHITECT 3 mg 3 mg, Oral, HS PRN, Other, Mild insomnia, Starting on Sun01/02/22 at 1855, Until Sun01/05/22 at 1505 metoprolol succinate (TOPROL XL) extended Given 01/05/2022 6:37 AM AWS SOLUTION ARCHITECT 75 mg release tablet 75 mg 75 mg, Oral, DAILY, First dose on Sun01/03/22 at 0600, Until Discontinued, Tablet may be split in half, but not crushed. Given 01/04/2022 7:05 AM AWS SOLUTION ARCHITECT 75 mg Given 01/03/2022 5:41 AM AWS SOLUTION ARCHITECT 75 mg metroNIDAZOLE (FLAGYL) 500mg in sodium Started 01/02/2022 5:22 PM AWS SOLUTION ARCHITECT 500 mg chloride 0.9% 100 mL IVPB 500 mg, Intravenous, Administer over 30 Minutes, ONCE, On Sun01/02/22 at 1630, For 1 dose metroNIDAZOLE (FLAGYL) 500mg in sodium Started 01/03/2022 5:48 AM AWS SOLUTION ARCHITECT 500 mg chloride 0.9% 100 mL IVPB 500 mg, Intravenous, Administer over 30 Minutes, Q12H (NON-STND), First dose on Sun01/03/22 at 0500 simvastatin (ZOCOR) tablet 20 mg Given 01/04/2022 5:20 PM AWS SOLUTION ARCHITECT 20 mg 20 mg, Oral, DAILY, First dose on Sun01/03/22 at 1800, Until Discontinued Given 01/03/2022 5:38 PM AWS SOLUTION ARCHITECT 20 mg sodium chloride 0.9% bolus 1,000 mL Started 01/02/2022 2:17 PM AWS SOLUTION ARCHITECT 1,000 mL 1,000 mL, Intravenous, Administer over 0.6 Hours, ONCE, On Sun01/02/22 at 1430, For 1 dose sodium chloride 0.9% injection 10-60 mL Given 01/04/2022 7:49 PM AWS SOLUTION ARCHITECT 10 mL 10-60 mL, Intravenous, PRN, Line Patency, Line Care, Starting on Sun01/02/22 at 1744, Until Sun01/05/22 at 1505, For an INT flush, flush with at least 10 mL. For PICC (including Power Injectable PICC), flush with 10 mL. For Port-a-Cath, flush with a minimum of 10mL. For Vela, flush with a minimum of 10 mL. For jugular, subclavian, femoral central lines, flush with a minimum 10 mL. For additional information about flushing processes, reference the Vascular Access Device Users Guide. vancomycin (FIRVANQ) oral solution 125 m g Given 01/05/2022 12:24 PM AWS SOLUTION ARCHITECT 125 mg 125 mg, Oral, QID, First dose on Sun01/03/22 at 1200, For 10 days, Indications: Clostridioides Difficile Colitis Given 01/05/2022 7:33 AM AWS SOLUTION ARCHITECT 125 mg Given 01/04/2022 7:50 PM AWS SOLUTION ARCHITECT 125 mg documented in this encounter Active and Recently Administered Medications Times are shown in AWS SOLUTION ARCHITECT. Scheduled Medication Order 01/03/2022 01/04/2022 01/05/2022 cholecalciferol (VITAMIN D3) tablet 1,000 Units 0541 ( Given - Provider: Dima Sutton RN) 0705 (Given - Provider: Dima Sutton RN) 0636 (Given - Provider: Gordy Ovalle RN) 1,000 Units, Oral, DAILY, First dose on Sun01/03/22 at 0600, Until Discontinued, 1000 units = 25 mcg cyanocobalamin (VITAMIN B12) tablet 1,000 mcg 0541 (Gi chey - Provider: Dima Sutton RN) 0705 (Given - Provider: Dima Sutton RN) 0636 (Given - Provider: Goryd Ovalle RN) 1,000 mcg, Oral, DAILY, First dose on Sun01/03/22 at 0600, Until Discontinued levothyroxine (SYNTHROID) tablet 75 mcg 2303 (Given - Provider: Dima Sutton RN) 2330 (Given - Provider: Gordy Ovalle RN) 75 mcg, Oral, DAILY, First dose on Sun at 2300, Until Discontinued, Take on an empty stomach, one hour before meals or two hours after. losartan (COZAAR) tablet 100 mg 0541 (Given - Provider : Dima Sutton RN) 0705 (Given - Provider: Dima Sutton RN) 0636 (Given - Provider: Goryd Ovalle RN) 100 mg, Oral, DAILY, First dose on Sun01/03/22 at 0600, Until Dis continued metoprolol succinate (TOPROL XL) extended release tabl et 75 mg 0541 (Given - Provider: Dima Sutton RN) 0705 (Given - Provider: Dima porras RN) 0637 (Given - Provider: Gordy Ovalle RN) 75 mg, Oral, DAILY, First dose on 11/26 at 0600, Until Discontinued, Tablet may be split in half, but not crushed. metroNIDAZOLE (FLAGYL) 500mg in sodium chloride 0.9% 1 00 mL IVPB (CANCELED) 0548 (Started - Provider: Dima Sutton RN)0618 (Infused - Provider: Dima Sutton RN) 500 mg, Intravenous, Administer over 30 Minutes, Q12H (NON-STND), First dose on Sun01/03/22 at 0500 simvastatin (ZOCOR) tablet 20 mg 1738 (Given - Provider: Shari Goldstein RN) 1720 (Given - Provider: Jian Bee RN) 20 mg, Oral, DAILY, First dose on Sun01/03/22 at 1800, Until Disc ontinued vancomycin (FIRVANQ) oral solution 125 mg 1130 (Given - Provider: Sherrell Goldstein RN)1615 (Given - Provider: Sherrell Goldstein RN)2055 (Given - Provider: Dima Sutton RN) 0750 (Given - Provider: Jian brumfield RN)1250 (Given - Provider: Jian Bee RN)1637 (Given - Provider: Jian Bee RN)1950 (Given - Provider: Gordy Ovalle RN) 0733 (Given - Provider: Jian Bee RN)1224 (Given - Provider: Jian Bee RN) 125 mg, Oral, QID, First dose on 01/03 at 1200, For 10 days, Indications: Clostridioides Difficile Colitis Continuous Medication Order 01/03/2022 01/04/2022 01/05/2022 dextrose 5%-NaCl 0.45%-KCl 20 mEq/liter infusion 1337 (New Bag Started - Provider: Sherrell Goldstein RN) 0800 (Started - Provider: Jian Bee RN) 0445 (Started - Provider: Gordy Ovalle RN) Intravenous, at 50 mL/hr, CONTINUOUS, Starting on Sun01/02/22 at 1915 PRN Medication Order 01/03/2022 01/04/2022 01/05/2022 acetaminophen (TYLENOL) tablet 325-650 mg 325-650 mg, Oral, Q4H PRN, Pain, Startin g on Sun01/02/22 at 1855, Until Shahla 01/05/22 at 1505 calcium carbonate (TUMS) chewable tablet 500 mg 500 mg, Oral, Q4H PRN, Heartburn, Upset Stomach, Starting on Sun01/02/22 at 1855, Until Shahla 01/05/22 at 1505, Each tablet provides 200 mg elemental calcium guaiFENesin (ROBITUSSIN) 100 MG/5ML oral liquid 10 mL 10 mL, Oral, Q4H PRN, Cough, Starting on Sun01/02/22 at 1855, Until Shahla 01/05/22 at 1505 lidocaine (UROJET) 2 % prefilled syringe Urethral, PRN, Local Anesthetic, Urethra l Discomfort, Starting on Sun01/02/22 at 1855, Consider using for any adult male or any patients with a history of painful urinary catheter insertion and no lidocaine allergy. melatonin tablet 3 mg 2330 (Given - Provider: Fr mason Ovalle RN) 3 mg, Oral, HS PRN, Other, Mild insomnia , Starting on Sun01/02/22 at 1855, Until Shahla 01/05/22 at 1505 nystatin (MYCOSTATIN) [id number] UNIT/GM topical powder Topical, BID PRN, Other, for rash due to yeast, Starting on Sun01/02/22 at 1855, Apply topically to affected area. Hazardous waste disposal required. polyethyl-propylene glycol (SYSTANE) 0.4-0.3 % ophthalmic soluti on 1 Drop 1 Drop, Both Eyes, Q1H PRN, Dry Eyes, It leslie Eyes, Starting on Sun01/02/22 at 1855, Until Shahla 01/05/22 at 1505 senna (SENOKOT) tablet 1 Tablet 1 Tablet, Oral, DAILY PRN, Constipation, Mild Constipation, Starting on Sun01/02/22 at 1855, Until Shahla 01/05/22 at 1505, Mild constipation sodium chloride (OCEAN) 0.65 % nasal solution 1 [place] 1 [place], Both Nostrils, Q2H PRN, Dry Nos e, Starting on Sun01/02/22 at 1855, Until Sun01/05/22 at 1505 sodium chloride 0.9% injection 10-60 mL 1948 (Given - Provider: Gordy Ovalle RN) 10-60 mL, Intravenous, PRN, Line Patency , Line Care, Starting on Sun01/02/22 at 1744, Until Shahla 01/05/22 at 1505, For an INT flush, flush with at least 10 mL. For PICC (including Power Injectable PICC), f lush with 10 mL. For Port-a-Cath, flush with a minimum of 10mL. For Vela, flush with a minimum of 10 mL. For jugular, subclavian, femoral central lines, flush with a minimum 10 mL. For additional inf ormation about flushing processes, refer ence the Vascular Access Device Users Guide. documented in this encounter Additional Health Concerns Infection Onset Date Last Indicated Resolved Time C-Diff 01/03/2022 01/03/2022 01/13/2022 3:17 AM AWS SOLUTION ARCHITECT documented as of this encounter Care Teams Marble Cutter Operator Relationship Specialty Start Date End Date Veronica Heredia DO PCP - General Family Practice 03/22/17 [address] [facility] [address] [place] [address] documented as of this encounter
--- OUTSIDE RECORDS SUMMARY | 2022-08-15 14:50 | XMS_ITS | Encounter Summary ---
:1940 Author Organization [facility] Address [address] [place] [address] Care Team Providers Name Role Phone Veronica Heredia DO Primary Care Provider Reason for Visit Reason Comments Refill simvastatin (ZOCOR) 20 MG ta blet [Pharmacy Med Name: SIMVASTATIN 20 MG TABLET] Encounter Details Date Type Department Care Team Description 06/08/2022 Refill [facility] Veronica Heredia, DO Refill (simvastatin [id number] [facility] [address] [facility] (ZOCOR) [address] [Pharmacy Med Name: [place] [address] [place], [place] SIMVASTATIN 20 MG [phone] [id number] TABLET]) [phone] (Wo rk) Social History Tobacco Use Types [...] documented as of this encounter Nursing Notes Roseline Montes RN - 06/08/2022 7:41 AM CDT Renewed medication per medication refill protocol. Requested Prescriptions Pending Prescriptions Disp Refills simvastatin (ZOCOR) 20 MG tablet [Pharmacy Med Name: SIMVASTATIN 20 MG TABLET] 90 Tablet 2 Sig: TAKE 1 TABLET BY MOUTH EVERY DAY Interface, Out Choister Prov Query - 06/08/2022 12:43 AM CDT simvastatin (ZOCOR) 20 MG tablet [Pharmacy Med Name: SIMVASTATIN 20 MG TABLET] Medication started: 04/19/2017 Last ordered by VERONICA HEREDIA M: 09/07/2021 (274 days ago) QTY: 90, Refills: 2, Sig: take 1 tablet by mouth every day (unchanged) -> Refill x 9 months, qty: 90, refills: 2 (until due for an office visit) Last qualifying visit: 01/16/2022 (with VERONICA HEREDIA) Next scheduled visit: None [facility] [employer] Embedded Refills, Reference: [id number], 06/08/2022 12:43:06 AM CDT, Ezequiel: YURY JUAREZ REFILL ([id number]) documented in this encounter Plan of Treatment Not on filedocumented as of this encounter Visit Diagnoses Diagnosis Hyperlipidemia, unspecified hyperlipidem ia type (HRC) documented in this encounter Care Teams Centrifuge Operator Relationship Specialty Start Date End Date Veronica Heredia PCP - General Family Practice 03/22/[address] [facility] [address] [place], [place] [address] documented as of this encounter
--- OUTSIDE RECORDS SUMMARY | 2022-08-15 14:50 | XMS_ITS | Encounter Summary ---
:1940 Author Organization [facility] Address [address], [place] [address] Care Team Providers Name Role Phone Veronica Heredia DO Primary Care Provider Reason for Visit Reason Comments Rectal Bleeding Encounter Details Date Type Department Care Team Description 12/29/2021 Office Visit Chris Bellamy, [facility] stroenteritis Medicine (Primary Dx) [address] [place] [address] [place] [phone] Social History Tobacco Use Types Packs/Day Years [...] Sign Reading Time Taken Comments Blood Pressure 131/77 12/29/2021 1:25 PM AUTOMOBILE RADIO REPAIRER Pulse 79 12/29/2021 1:13 PM AUTOMOBILE RADIO REPAIRER Temperature - - Respiratory Rate - - Oxygen Saturation - - Inhaled Oxygen Concentration - - Weight 84.1 kg (185 lb 6.4 oz) 12/29/2021 1:13 PM AUTOMOBILE RADIO REPAIRER Height - - Body Mass Index 31.82 07/13/2021 7:52 AM CDT documented in this encounter Progress Notes Chris Loza MD - 12/29/2021 1:20 PM CST Subjective: Michele Angulo is a 81 y.o. female who presents for evaluation of diarrhea. Onset of diarrhea was 2 days ago. Diarrhea is occurring approximately 10 times per day, yesterday felt constipated. Patient describes diarrhea as semisolid. Patient denies blood in stool, fever, illness in household contacts, recent antibiotic use, recent travel, significant abdominal pain, unintentional weight loss. Previous visits for diarrhea: none. Evaluation to date: none. Patient's medications, allergies, past medical, surgical, social and family histories were reviewed and updated as appropriate. Review of Systems Pertinent items are noted in HPI. Objective: BP 131/77 (BP Location: Left Arm, BP Cuff Size: Regular) Pulse 79 Wt 185 lb 6.4 oz (84.1 kg) BMI 31.82 kg/m?? General: alert, cooperative, no distress, appears stated age Hydration: well hydrated Abdomen: soft, non-tender; bowel sounds normal; no masses, no organomegaly Assessment: Gastroenteritis, likely viral; moderate severity Plan: Discussed the appropriate management of diarrhea. Recommend oral rehydration therapy with an electrolyte rich fluid such as Gatorade or Pedialyte. Follow-up as needed. Return to clinic in 1-2 weeks or soooner PRN. She was reminded she is due for a screening colonoscopy in July of the present year, schedulingnumber provided. MOBILE RADIO REPAIRER documented in this encounter Plan of Treatment Not on filedocumented as of this encounter Visit Diagnoses Diagnosis Acute gastroenteritis - Primary Other and unspecified noninfectious uzair roenteritis and colitis documented in this encounter Care Teams Financial Sales Associate Relationship Specialty Start Date End Date Veronica Heredia DO PCP - General Family Practice 03/22/17 [address] [facility] [place] [address] documented as of this encounter
--- OUTSIDE RECORDS SUMMARY | 2022-08-15 14:50 | XMS_ITS | Encounter Summary ---
:1940 Author Organization [facility] Address [address] [address] Care Team Providers Name Role Phone RobleskarinaVeronica DO Primary Care Provider Reason for Visit Reason Comments Follow-up Encounter Details Date Type Department Care Team Description 08/02/2021 [facility] Dee Baker L, Endometr ial cancer Gynecologic Oncology STUDENT UNION CONSULTANT, MAGALYS (HRC) (Primary Dx) [address] [place] [address] [phone] Social History Tobacco Use Types Packs/Day Years [...] Sign Reading Time Taken Comments Blood Pressure 150/85 08/02/2021 9:42 AM CDT Pulse 74 08/02/2021 9:42 AM CDT Temperature - - Respiratory Rate - - Oxygen Saturation - - Inhaled Oxygen Concentration - - Weight 82.9 kg (182 lb 11.2 oz) 08/02/2021 9:42 AM CDT Height - - Body Mass Index 31.36 07/13/2021 7:52 AM CDT documented in this encounter Progress Notes Dee Baker, JUDE, MAGALYS - 08/02/2021 10:00 AM CDT Follow Up Notes on Referred Patient RE: Michele Angulo : 1940 HEAVEN: 08/02/2021 Michele Angulo is a 80 y.o. old woman with a diagnosis of Stage 1A grade 2 endometrial cancer. ?She is here today for vaginal spotting.? 06/12/18:??Total laparoscopic hysterectomy, bilateral salpingo-oophorectomy, cystoscopy? Current status: Pt. Is feeling generally well. She denies vaginal bleeding or discharge. No abdominal or pelvic pain. Normal bowel and bladder habits. Her appetite is good. No cough, SOB or LE edema. She tries to get out walking 1 mile/day. She is planning on going to [place] in August for the winter. Review of Systems: Systemic no weight changes; no fever; no chills; no night sweats; no appetite changes Skin no rashes, or lesions Eye no irritation; no changes in vision Javan-Laryngeal no dysphagia; no hoarseness Pulmonary no cough; no shortness of breath Cardiovascular no chest pain; no palpitations Gastrointestinal no diarrhea; no constipation; no abdominal pain; no changes in bowel habits; no blood in stool Genitourinary no urinary frequency; no urinary urgency; no dysuria; no pain; no abnormal vaginal discharge; no abnormal vaginal bleeding Breast no breast discharge; no breast changes; no breast pain Musculoskeletal no myalgias; no arthralgias; no back pain Psychiatric no depressed mood; no anxiety Hematologic no tender lymph nodes; no noticeable swellings or lumps Endocrine no hot flashes; no heat/cold intolerance Neurological no tremor; no numbness and tingling; no headaches; no difficulty sleeping Past Medical History: Past Medical History: Diagnosis Date ??? Aspirin long-term use 04/16/2015 ASA therapy 75-162 mg/day is recommended for primary CVD prevention because patient -Is female 57 years who have at least one additional major risk factor such as: -HTN -Dyslipdemia ??? Calculus of kidney right side diagnosed CT scan in [place] asymptomatic 04/18/2016 ??? Endometrial cancer (HRC) 05/02/2018 ??? H/O colonoscopy 200704/16/2015 ??? Hyperlipidemia 07/12/2005 takes zocor ??? Hypertension 04/11/2003 takes atenolol cozaar ??? Obesity (HRC) 04/30/2006 LW Onset: [id number] ??? Postmenopausal 04/16/2015 resolved ??? Zoster Past Surgical History: Past Surgical History: Procedure Laterality Date ??? BUNIONECTOMY ??? HYSTERECTOMY total with BSO ??? SALPINGO-OOPHORECTOMY Bilateral Current Medications: Michele has a current medication list which includes the following prescription(s): acetaminophen, cholecalciferol, cyanocobalamin, hydrochlorothiazide, levothyroxine, metoprolol succinate, metoprolol succinate, simvastatin, and valsartan. Allergies: Allergies Allergen Reactions ??? Contrast [Iodinated Diagnostic Agents] Anaphylaxis ??? Penicillins Hives ??? Sulfa Antibiotics Hives Social History: Social History Tobacco Use ??? Smoking status: Never Smoker ??? Smokeless tobacco: Never Used Vaping Use ??? Vaping Use: Never used Substance Use Topics ??? Alcohol use: Yes Comment: Alcoholic Drinks/day: 1-2 x per year ??? Drug use: No Social History Substance and Sexual Activity Drug Use No Family History: The patient's family history is notable for: Family History Problem Relation Age of Onset [...] History ??? Cancer, Endometrial Negative Family History Physical Exam: There were no vitals taken for this visit. General Appearance: healthy and alert, no distress HEENT: no thyromegaly, no palpable nodules or masses Cardiovascular: regular rate and rhythm, no gallops, rubs or murmurs Respiratory: lungs clear, no rales, rhonchi or wheezes, normal diaphragmatic excursion Musculoskeletal: extremities non tender and without edema Skin: no lesions or rashes Neurological: normal gait, no gross defects Psychiatric: appropriate mood and affect Hematological: normal cervical, supraclavicular and inguinal lymph nodes Gastrointestinal: abdomen soft, non-tender, non-distended, no organomegaly or masses Genitourinary: External genitalia and urethral meatus appears normal. Vagina is smooth without nodularity or masses. Vaginal cuff appears normal and without lesions. Bimanual exam reveal no masses, nodularity or fullness. Recto-vaginal exam confirms these findings. Assessment: Michele is a 80 y.o. old woman with a diagnosis of Stage 1A grade 2 endometrial cancer. ? Plan: 1.)?EMCA -?She will follow q 6 months for 5 years and will transition to the care of her primary FAMILY PROGRAM SPECIALIST after initial follow-up here. ?? 2.)?Genetic risk factors were assessed and the patient does not meet the qualifications for a referral. ? 3.)?Labs and/or tests ordered include:?none. ?? 4.)?Health maintenance issues addressed today include??routine care with PCP. Thank you for allowing us to participate in the care of your patient. Sincerely, Dee Baker APRN, CNP 08/02/2021, 10:02 AM documented in this encounter Nursing Notes Tata Rizo RN - 08/02/2021 10:00 AM CDT Patient was offered a field pipelines supervisor for the pelvic exam portion of the visit. The patient DECLINED. documented in this encounter Plan of Treatment Not on filedocumented as of this encounter Visit Diagnoses Diagnosis Endometrial cancer (HRC) - Primary Malignant neoplasm of corpus uteri, exce pt isthmus documented in this encounter Care Teams Waiter/Waitress Formal Relationship Specialty Start Date End Date Veronica Heredia DO PCP - General Family Practice 03/22/17 [address] [facility] [address] [place], [place] [id number] documented as of this encounter
--- OUTSIDE RECORDS SUMMARY | 2022-08-15 14:50 | XMS_ITS | Encounter Summary ---
:1940 Author Organization [facility] Address [address] [place] [address] Care Team Providers Name Role Phone Veronica Heredia DO Primary Care Provider Reason for Visit Reason Comments RESULTS, TEST Encounter Details Date Type Department Care Team Description 04/27/2022 Telephone [facility] Veronica Lowe, DO RESULTS, TEST [address] [place] [address] [place] [address] [place], [place] [phone] (Wo rk) Social History Tobacco Use Types [...] documented as of this encounter Nursing Notes Ruma Brunner RN - 04/27/2022 8:39 AM CDT Spoke with patient, she is looking for recent test results from 04/26/22. Per PCP comment, Your kidney function is still mildly decreased but stable. Please let me know if you are having any symptoms. And your fasting glucose is mildly elevated in the prediabetes range. ... No symptoms. Educated patient on focusing on fresh fruits and vegetables, lean meats and low fat dairy. Shopping the perimeter of the grocery store. Watching sugar and carb intakes, keep to a minimum. Pt verbalized understanding and no further questions. documented in this encounter Plan of Treatment Not on filedocumented as of this encounter Visit Diagnoses Not on filedocumented in this encounter Care Teams Oil Burner Relationship Specialty Start Date End Date Veronica Heredia DO PCP - General Family Practice 03/22/17 [address] [facility] [place] [address] documented as of this encounter
--- OUTSIDE RECORDS SUMMARY | 2022-08-15 14:50 | XMS_ITS | Encounter Summary ---
:1940 Author Organization [facility] Address [address] [place] [address] Care Team Providers Name Role Phone Veronica Heredia DO Primary Care Provider Reason for Visit Reason Comments Refill valsartan (DIOVAN) 160 MG ta blet [Pharmacy Med Name: VALSARTAN 160 MG TABLET] Encounter Details Date Type Department Care Team Description 06/25/2022 Refill [facility] Veronica Heredia, DO Refill (valsartan [id number] [facility] [address] [facility] (DIOVAN) [address] [Pharmacy Med Name: [place] [address] [place], [place] VALSARTAN 160 MG [phone] [id number] TABLET]) [phone] (Wo rk) Social History Tobacco Use Types [...] documented as of this encounter Nursing Notes Arash Jordan RN - 06/28/2022 7:26 AM CDT Renewed medication per medication refill protocol. Requested Prescriptions Signed Prescriptions Disp Refills valsartan (DIOVAN) 160 MG tablet 90 Tablet 2 Sig: TAKE 1 TABLET BY MOUTH EVERY DAY Authorizing Provider: VERONICA HEREDIA Ordering User: ARASH JORDAN Interface, Out Surescripts Prov Query - 06/25/2022 12:30 AM CDT valsartan (DIOVAN) 160 MG tablet [Pharmacy Med Name: VALSARTAN 160 MG TABLET] Medication started: 07/08/2021 Last ordered by VERONICA HEREDIA: 07/08/2021 (352 days ago) QTY: 90, Refills: 3, Sig: take 1 tablet by mouth daily. (changed but equivalent) -> Cr is abnormal (1.12 mg/dL lies outside 0.55 mg/dL - 1.02 mg/dL) -> Refill x 9 months, qty: 90, refills: 2 (until due for an office visit) Last qualifying visit: 01/16/2022 (with VERONICA HEREDIA) Next scheduled visit: None Cr: 1.12 mg/dL on 04/26/2022 K: 4 mEq/L on 04/26/2022 [facility] Embedded Refills, Reference: [id number], 06/25/2022 12:30:38 AM CDT, Pool: YURY JUAREZ REFILL ([id number]) Interface, Out Surescripts Prov Query - 06/25/2022 12:30 AM CDT The following lab order(s) may be associated with the following Patient Result Comment (Entered by Veronica Heredia DO at 04/26/2022 1:20 PM): BASIC METABOLIC PANEL Michele,Your kidney function is still mildly decreased but stable. Please let me know if you are havingany symptoms. And your fasting glucose is mildly elevated in the prediabetes range.Please call (or message) if you have questions regarding your results, . Regards, Dr. Heredia documented in this encounter Plan of Treatment Not on filedocumented as of this encounter Visit Diagnoses Diagnosis Essential hypertension (HRC) Unspecified essential hypertension documented in this encounter Care Teams Hand Former Relationship Specialty Start Date End Date Veronica Heredia DO PCP - General Family Practice 03/22/17 [address] [facility] RANDELL Redman [address] documented as of this encounter
--- OUTSIDE RECORDS SUMMARY | 2022-08-15 14:50 | XMS_ITS | Encounter Summary ---
:1940 Author Organization [facility] Address [address] [place] [address] Care Team Providers Name Role Phone Veronica Heredia DO Primary Care Provider Reason for Visit Reason Comments Follow-up follow up surgery from [facility] Encounter Details Date Type Department Care Team Description 09/20/2021 Office Visit Sawyer Hernandez Veronica Heredia, Encounter for Medicare annual wellness exam (Primary Dx); Medicine DO Essential hypertension; [address] [facility] [address] [place] Vitamin B1 2 deficiency; [facility] Hypothyroidism, unspecified type; [place] [address] [place], [place] Allergic rhinitis, unspecifi ed seasonality, unspecified trigger; [phone] [id number] Hyperlipidemia, unspecified hyperlipidem ia type Social History Tobacco Use Types Packs/Day Years [...] Sign Reading Time Taken Comments Blood Pressure 122/80 09/20/2021 7:59 AM ROLL FORM OPERATOR Pulse 69 09/20/2021 7:59 AM ROLL FORM OPERATOR Temperature 36.4 ??C (97.5 ??F) 09/20/2021 7:59 AM ROLL FORM OPERATOR Respiratory Rate - - Oxygen Saturation - - Inhaled Oxygen Concentration - - Weight 83.4 kg (183 lb 14.4 oz) 09/20/2021 7:59 AM ROLL FORM OPERATOR Height - - Body Mass Index 31.57 07/13/2021 7:52 AM CDT documented in this encounter Patient Instructions Patient InstructionsVeronica Heredia DO - 09/20/2021 8:00 AM CST I recommend eating a minimum of 5 fruits and vegetables daily. Consume vitamin D3 400-800 international units daily from diet or supplement to meet the daily recommended dietary intake of Vitamin D3. Try to consume from diet 3-4 servings of calcium rich foods daily to reach 1000 mg to 1200 mg of calcium daily for your bone health. Moderate activity/exercise daily for approximately 30 minutes- 1 hour to improve cardiovascular fitness. Please wear at least a 15 spf sunscreen when out in the sun to protect against skin cancer. Annual Wellness Visit Summary Your care team is recommending the following tests, procedures or services. Some of these recommendations may not be fully covered by Medicare or your insurance. If you have questions, check with your insurance to determine coverage before completing these services. Health Maintenance Due Health Maintenance Due Topic Date Due ??? Zoster (3 of 3) 04/02/2019 ??? COVID-19 Vaccine (3 - Booster for Pfizer series) 06/06/2021 ??? Influenza (1) 07/06/2021 If your Medicare Welcome or Annual Wellness Visit is showing you are due in the above list, this will be updated after this visit. You had this completed today and are not due for another year. FORM OPERATOR documented in this encounter Progress Notes Veronica Heredia DO - 09/20/2021 8:00 AM CST Medicare Annual Wellness Visit Subjective/Historical: Michele Angulo is a 81 y.o. old female Chief Complaint Patient presents with ??? Follow-up follow up surgery from retina center Current Concerns: This is a 81-year-old female here for Medicare annual wellness. Recent retinal surgery to her right eye with close follow-up with Ophthalmology planned for 3 months. Vision has been gradually improving. She does plan to go to her home in [place] and then return back for this follow-up visit. History of B12 deficiency with no current neuropathic discomfort. History of hypothyroidism on replacement. history of hypertension currently well controlled. Blood pressure medication changes this year due to insurance coverage, she was switched from losartan to valsartan. History of allergies particularly to dust, worse after she vacuums, present for months all year round. History of hyperlipidemia on a statin no history of CVA or [place]. Advance Directives: No advance directives are on file. Observed Vitals: BP 122/80 (BP Location: Left Arm, BP Cuff Size: Regular) Pulse 69 Temp 97.5 ??F (36.4 ??C) Wt 183 lb 14.4 oz (83.4 kg) BMI 31.57 kg/m?? Vital Signs: BP 122/80 (BP Location: Left Arm, BP Cuff Size: Regular) Pulse 69 Temp 97.5 ??F (36.4 ??C) Wt 183 lb 14.4 oz (83.4 kg) BMI 31.57 kg/m?? Gen.: Alert, elderly, cooperative in no acute distress. Head: Normocephalic, atraumatic. Eyes: No scleral icterus or conjunctivitis present. Right pupil is slightly larger than left (post-surgical change), left pupil normal. Nose: Patent, without deformity. Clear nasal drainage. Throat: Moist mucous membranes without lesions, erythema, or exudate. Neck: Supple, without masses, lymphadenopathy or tenderness. Respiratory: Normal respiratory rate and effort. Lungs are clear to auscultation with good breath sounds bilaterally. No wheeze or crackle. Heart: RRR without murmurs, rubs, or gallops. Abdomen: The abdomen was soft, nondistended and nontender. No obvious masses or organomegaly. Psych: No evidence of overt anxiety or depression. Extremities: No cyanosis, clubbing or edema. Musculoskeletal: Normal tone. Skin: No pallor. Neurologic: Alert, non-focal. Lab Results Component Value Date Cholesterol 166 04/19/2017 Cholesterol 171 04/18/2016 Cholesterol/HDL Ratio Screen 3.8 04/19/2017 Cholesterol/HDL Ratio Screen 3.5 04/18/2016 Lab Results Component Value Date HDL Cholesterol 44 04/19/2017 HDL Cholesterol 49 04/18/2016 HDL Cholesterol 49 04/16/2015 Lab Results Component Value Date LDL Calculated 91 04/19/2017 LDL Calculated 91 04/18/2016 LDL Calculated 94 04/16/2015 Lab Results Component Value Date Triglycerides 153 (H) 04/19/2017 Triglycerides 155 (H) 04/18/2016 Triglycerides 146 04/16/2015 Lab Results Component Value Date Creatinine 0.94 09/20/2021 Glucose 105 (H) 09/20/2021 Bedside Blood Glucose Test 104 06/12/2018 CO2 29 09/20/2021 Chloride 104 09/20/2021 Potassium 3.7 09/20/2021 Sodium 141 09/20/2021 BUN 23 09/20/2021 Calcium 9.3 09/20/2021 GFR, Estimated 58 (L) 09/20/2021 Lab Results Component Value Date WBC 6.7 02/22/2021 RBC 4.56 02/22/2021 Hemoglobin 13.5 02/22/2021 HCT 41.4 02/22/2021 MCV 90.8 02/22/2021 RDW 12.9 02/22/2021 Platelets 193 02/22/2021 Lab Results Component Value Date Vitamin B12 1,084 (H) 07/14/2021 Lab Results Component Value Date Hemoglobin A1C 5.6 02/22/2021 Assessment/Plan ICD-10-CM 1. Encounter for Medicare annual wellness exam Z00.00 Influenza IIV4 (Quadrivalent) Fluad, 65+ Yrs (43977) Pfizer COVID-19 Vaccine 2. Essential hypertension (HRC) I10 Basic Metabolic Panel 3. Vitamin B12 deficiency (HRC) E53.8 4. Hypothyroidism, unspecified type (HRC) E03.9 5. Allergic rhinitis, unspecified seasonality, unspecified trigger J30.9 Blood pressure currently well controlled. Shingrix to be obtained at her pharmacy. Discussed home management of all allergy symptoms nasal saline lavage and Flonase recommended. Influenza vaccination provided. COVID Pfizer booster provided. Advance care directive paperwork provided, to be returned to clinic. Counseling and education provided today includes proper nutrition and health habits, fall prevention, and for those items ordered above. See plan for future preventive services in Patient Instructions. Cardiovascular Risk Summary: CV risk calculations are not recommended for patients over age 75.Cardiovascular risk could be reduced with attention to the following, in order of priority Weight loss Wizard?? Veronica Heredia DO 09/20/2021, 1:10 PM FORM OPERATOR documented in this encounter Plan of Treatment Not on filedocumented as of this encounter Results (ABNORMAL) Basic Metabolic Panel (09/20/2021 8:44 AM ROLL FORM OPERATOR) Analysis Performed At Patho logist Time Signature Sodium 141 136 - 145 09/20/2021 [facility] mmol/L 1:06 PM ROLL FORM OPER[facility] Potassium 3.7 3.5 - 5.1 09/20/2021 [facility] mmol/L 1:06 PM ROLL FORM OPER[facility] Chloride 104 98 - 109 09/20/2021 [facility] mmol/L 1:06 PM ROLL FORM [facility] CO2 29 20 - 29 09/20/2021 [facility] mmol/L 1:06 PM RO[facility]M [facility] Anion Gap 8 7 - 16 09/20/2021 [facility] mmol/L 1:06 PM ROLL FORM [facility] Calcium 9.3 8.4 - 10.4 09/20/2021 [facility] mg/dL 1:06 PM ROLL FORM O[facility] BUN 23 7 - 26 09/20/2021 [facility] mg/dL 1:06 PM ROLL FORM OPERATOR [facility] Creatinine 0.94 0.55 - 09/20/2021 [facility] 1.02 mg/dL 1:06 PM ROLL FORM OPER[facility] GFR, Estimated 58 (L) >60 09/20/2021 [facility] mL/min/1.7 1:06 PM ROLL FORM OPERATOR [facility] 3m2 Glucose 105 (H) 70 - 100 09/20/2021 [facility] mg/dL 1:06 PM ROLL FORM OPERATOR [facility] Comment: The given reference range is fo r the fasting state. Non-fasting reference range for glucose is 70 - 180 mg/dL. Hours Fasting 0 09/20/2021 1:06 PM ROLL FORM OPERATOR [facility] Specimen Anatomical Collection Method / Collection Time Recei la Time (Source) Location / Volume Laterality Blood Venipuncture / 09/20/2021 8:44 09/20/2021 8:44 Unknown AM ROLL FORM OPERATOR AM ROLL FORM OPERATOR Narrative [facility] - 09/20/2021 1:06 P M ROLL FORM OPERATOR The National Kidney Disease Education Pr ogram suggests measuring Cystatin C in patients with eGFRcrea of 45 to 59 ml/mi n/1.73^2 who do not have other markers of kidney damage (i.e. elevated urine Album in/Creatinine Ratio or a prior Cystatin C confirming the presence of chronic kidne y disease). Veronica Heredia DO LAB_1 Performing Organization Address City/State/ZIP Code Phon e Number [facility] [address] [place] [address] [facility] [address] [place] [address], [facility] documented in this encounter Visit Diagnoses Diagnosis Encounter for Medicare annual wellness e xam - Primary Essential hypertension (HRC) Unspecified essential hypertension Vitamin B12 deficiency (HRC) Other B-complex deficiencies Hypothyroidism, unspecified type (HRC) Allergic rhinitis, unspecified seasonali ty, unspecified trigger Hyperlipidemia, unspecified hyperlipidem ia type (HRC) documented in this encounter Care Teams Driver Wheelchair Relationship Specialty Start Date End Date Veronica Heredia DO PCP - General Family Practice 03/22/17 [address] [facility] [place] [address] documented as of this encounter
--- OUTSIDE RECORDS SUMMARY | 2022-08-15 14:50 | XMS_ITS | Clinical Summary ---
:1940 Author Organization [facility] Address [address] [facility] [address] Care Team Providers Name Role Phone Veronica Heredia DO Primary Care Provider Source Comments You are receiving this document as you are listed as the primary care provider,follow-up provider, or the patient has been referred to you for consultation.This is in compliance with the Medicare and Medicaid EHR Incentive Program,which states Providers who transition their patient to another setting of careor provider of care or refers their patient to another provider of care shouldprovide summarycare record for each transition of care or referral. [facility] Allergies Active Allergy Reactions Severity Noted Date Comments Iodinated Diagnostic Agents Anaphylaxis High 04/22/2018 Penicillins Hives High 07/01/2004 Has tolerated a ncef per Epic chart revi ew. Sulfa Antibiotics Hives High 07/01/2004 Medications Medication Sig Dispensed Refills Start End Date Status Date cholecalciferol Take 1,000 0 Act lynne (VITAMIN D3) 1000 units Units by tablet mouth daily. acetaminophen (TYLENOL) Take 0 Active 325 MG tablet 325-650 mg by mouth every 4 hours as needed for Pain. cyanocobalamin (VITAMIN Take 1 90 Tablet 3 Active B12) 1000 MCG Tablet by 1 tabletIndications: mouth Vitamin B12 deficiency daily. (HRC) hydroCHLOROthiazide Take 1 90 Capsule 3 Active 12.5 MG Capsule by 1 capsuleIndications: mouth Essential hypertension daily. (HRC) Multiple Take 2 0 Active Vitamins-Minerals tablets by (PRESERVISION AREDS 2 mouth OR) daily. levothyroxine TAKE 1 90 Tablet 3 Active (SYNTHROID) 75 MCG TABLET BY 2 tabletIndications: MOUTH EVERY Hypothyroidism, DAY unspecified type (HR) simvastatin (ZOCOR) 20 TAKE 1 90 Tablet 2 Active MG tabletIndications: TABLET BY 2 Hyperlipidemia, MOUTH EVERY unspecified DAY hyperlipidemia type (HR) metoprolol succinate TAKE 1 90 Tablet 2 Active (TOPROL XL) 50 MG 24 TABLET BY 2 hour release MOUTH EVERY tabletIndications: DAY Essential hypertension ([facility]) valsartan (DIOVAN) 160 TAKE 1 90 Tablet 2 Active MG tabletIndications: TABLET BY 2 Essential hypertension MOUTH EVERY (HRC) DAY metoprolol succinate take 1 tab 90 Tablet 1 Active (TOPROL XL) 25 MG 24 by mouth 2 hour release daily. take tabletIndications: with toprol Essential hypertension xl 50 mg ([facility]) tab to equal 75 mg. metoprolol succinate TAKE 1 TAB 90 Tablet 3 08/03/20 Discontinued (TOPROL XL) 25 MG 24 BY MOUTH 1 22 (*Med change OR hour release DAILY. TAKE same med OR tabletIndications: WITH TOPROL reorder, new Essential hypertension XL 50 MG dose/directions ([facility]) TAB TO ) EQUAL 75 MG. 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 Hypothyroidism 02/23/2021 Endometrial cancer 05/02/2018 Cancer Staging: Clinical: FIGO Stage I ( cT1, cN0, cM0) - Unsigned Pathologic: Stage Unknown (pT2, pNX, cM0 ) - Unsigned Overview: Added automatically from request for ayny chu [id number] Calculus of kidney 04/18/2016 Overview: Calculus of kidney right side diagnosed CT scan in [place] asymptomatic Hyperlipidemia 07/12/2005 Overview: takes zocor Essential hypertension 04/11/2003 Overview: takes atenolol cozaar ; Hypertension Resolved Problems Problem Noted Date Resolved Date Post-menopausal bleeding 04/10/2018 05/21/2018 Overview: Added automatically from request for yany chu [id number] Postmenopausal 04/16/2015 05/21/2018 Aspirin long-term use 04/16/2015 05/21/2018 Overview: ASA therapy 75-162 mg/day is recommended for primary CVD prevention because patient -Is female 57 years who have at least on e additional major risk factor such as: -HTN -Dyslipdemia H/O colonoscopy 04/16/2015 05/21/2018 Overview: H/O colonoscopy 2007 Vitamin D deficiency 04/16/2015 04/19/2017 BMI 34.0-34.9,adult 04/16/2015 04/02/2019 Esophageal reflux 04/30/2006 01/16/2022 Overview: infreqvent symptoms uses OTC medication ; Gastroesophageal Reflux Disease Encounters Date Type Specialty Care Team Description 07/31/2022 Refill Family Medicine Veronica Heredia DO Refil l; Patient Calling Back 06/25/2022 Refill Family Medicine Veronica Heredia DO Refil l (valsartan (DIOVAN) 160 [facility] 160 M G TABLET]) 06/14/2022 Refill Family Medicine Veronica Heredia DO Refil l (metoprolol succinate (TOPROL XL) 50 MG 24 hour release tablet [Pharmacy Med Name: METOPROLO L SUCC ER 50 MG TAB]) 06/08/2022 Refill Family Medicine Veronica Heredia DO Refil l (simvastatin (ZOCOR) 20 MG tablet [facility] SIMVASTATIN 20 MG TABLET]) from Last 3 Months Immunizations Name Administration Dates Next Due Flu Vac Preserv Free (3+yrs) 07/19/2012, 07/17/2011, 010, 07/13/2009 Influenza (Fluzone 0.25, 6-35 mos) 07/21/2013 Influenza IIV3 (Trivalent) Fluzone 08/05/2019, 08/10/2017, 0 07/19/2015 Highdose, 65+ Yrs (33299) Influenza IIV4 (Quadrivalent) 0.5mL 07/21/2013 (14275) Influenza IIV4 (Quadrivalent) Fluad, 09/20/2021 65+ Yrs PCV13 (Prevnar) 04/16/2015 PPSV23 (Pneumovax) 07/14/2010 Pfizer (Comirnaty) COVID-19, 12+ Yrs 09/20/2021, 12/07/2020, 11/19/2020 Purple Top Td 07/13/2009, 07/20/1999 Tdap 04/19/2017 Zoster (Zostavax) 07/19/2012 Zoster RZV (Shingrix) 02/05/2019 Family History Medical History Relation Name Comments Arthritis Father Kidney/Bladder Disease Father Arthritis Mother Cancer Mother liver Heart Failure Maternal Grandfather Heart Failure Paternal Grandfather Anxiety Sister Arthritis Sister Depression Sister High Blood Pressure Sister Thyroid Disorder Sister Cancer, Breast Negative Family History Cancer, Endometrial Negative Family History Cancer, Ovary Negative Family History Relation Name Status Comments Father Mother Maternal Grandfather Paternal Grandfather Sister Social History Tobacco Use Types Packs/Day Years [...] Assigned at Date Recorded Not on file Last Filed Vital Signs Vital Sign Reading Time Taken Comments Blood Pressure 146/80 01/20/2022 8:46 AM CDT Pulse 71 01/20/2022 8:46 AM CDT Temperature 36.3 ??C (97.4 ??F) 01/05/2022 7:47 AM GASOLINE SERVICE ATTENDANT Respiratory Rate 18 01/05/2022 7:47 AM GASOLINE SERVICE ATTENDANT Oxygen Saturation 94% 01/05/2022 7:47 AM GASOLINE SERVICE ATTENDANT Inhaled Oxygen Concentration - - Weight 80.9 kg (178 lb 7 oz) 01/16/2022 1:45 PM CDT Height 159 cm (5' 2.6) 01/16/2022 1:45 PM CDT Body Mass Index 32.02 01/16/2022 1:45 PM CDT Plan of Treatment Health Maintenance Due Date Last Done Comments Hep C Screening (Preventive 1940 Services) Zoster/Shingles (3 of 3) 04/02/2019 02/05/2019, 07/19/2012 COVID-19 Vaccine (4 - 11/15/2021 09/20/2021, 12/07/2020, Booster for Pfizer series) 11/19/2020 Influenza (#1) 2022 09/20/2021, 08/05/2019, 08/10/2017, Additional history exists Colonoscopy 07/16/2022 07/16/2019, 03/12/2008 Medicare Annual Wellness 09/20/2022 09/20/2021, 06/30/2020, Visit 02/05/2019 Prediabetes: HGBA1C 01/16/2023 01/16/2022, 02/22/2021, 06/30/2020, Additional history exists DTaP/Tdap/Td (2 - Tdap) 04/19/2027 04/19/2017, 07/13/2009, 07/20/1999 Dexa Completed 07/26/2011 (Completed) Pneumococcal 65+ Yrs Completed 04/16/2015, 07/14/2010, 07/14/2010 (Completed) HepA Aged Out No longer eligib le based on patient 's age to complete this topic HepB Aged Out No longer eligib le based on patient 's age to complete this topic Hib Aged Out No longer eligib le based on patient 's age to complete this topic IPV (Polio) Aged Out No longer eligib le based on patient 's age to complete this topic MCV4 Aged Out No longer eligib le based on patient 's age to complete this topic Insurance Payer Benefit Plan / Subscriber ID Effective Phone Address T ype Group Dates MEDICARE MEDICARE [id number] 2007-Pres Med icatariq ent BCBS BCBS MEDICARE [id number] 2016-Prese [phone] [address] [address] Medicare SUPPLEMENT [address] nt [address] [place] [address] [address]Home[address] [address] [place] (Work[place] [id number] Michele Angulo I Personal/Family Self 1940 [address] [address] [facility] (Work) [place] [address] Michele Angulo I Personal/Family Self 1940 [address] [place] [address] Michele Angulo I Personal/Family Self 1940 [address] (Home) [address] [place] [address] Advance Directives Latest Code Status on File Code Status Date Activated Date Inactivated Comments Full Code 01/02/2022 6:55 PM 01/05/2022 3:10 PM On Admission, Code status was determined by: Discussed with patient/family Full Code 06/12/2018 8:02 AM 06/13/2018 12:33 PM Full Code 04/24/2018 12:07 PM 04/24/2018 3:33 PM Care Teams Grinder Operator Surface Tool Relationship Specialty Start Date End Date Veronica Heredia, PCP - General Family Practice 03/22/[address] [address] [facility] R[place] [id number]
--- OUTSIDE RECORDS SUMMARY | 2022-08-15 14:50 | XMS_ITS | Encounter Summary ---
:1940 Author Organization [facility] Address [address], [place] [address] Care Team Providers Name Role Phone RobleskarinaVeronica DO Primary Care Provider Reason for Visit Reason Comments Follow-up Encounter Details Date Type Department Care Team Description 01/20/2022 [facility] Dee Baker, Endometr ial cancer Gynecologic Oncology NATIONAL SECRETARY, MAGALYS ([facility]) (Primary Dx) [address] [place] [address] [phone] Social History Tobacco Use Types Packs/Day Years [...] Pulse 71 01/20/2022 8:46 AM CDT Temperature - - Respiratory Rate - - Oxygen Saturation - - Inhaled Oxygen Concentration - - Weight - - Height - - Body Mass Index - - documented in this encounter Progress Notes Dee Baker, NATIONAL SECRETARY, DOCUMENT PREPARER MICROFILMING - 01/20/2022 9:00 AM CDT Follow Up Notes on Referred Patient RE: Michele Angulo : 1940 HEAVEN: 01/20/2022 Michele Angulo is a 81 y.o. old woman with a diagnosis of Stage 1A grade 2 endometrial cancer. ?She is here today for vaginal spotting.? 06/12/18:??Total laparoscopic hysterectomy, bilateral salpingo-oophorectomy, cystoscopy? Current status: Pt. Is feeling generally well. She denies vaginal bleeding or discharge. No abdominal or pelvic pain. She recently was treated for c. Diff and is finally back to normal BM's. No urinary concerns. Her appetite is good. No cough, SOB or LE edema. She usually spends her love in [place], but stayed around this winter due to some eye issues. Review of Systems: Systemic no weight changes; [...] kidney right side diagnosed CT scan in [place] asymptomatic 04/18/2016 ??? Endometrial cancer (HRC) 05/02/2018 ??? Esophageal reflux 04/30/2006 infreqvent symptoms uses OTC medication ; Gastroesophageal Reflux Disease ??? H/O colonoscopy 200704/16/2015 ??? Hyperlipidemia 07/12/2005 takes zocor ??? Hypertension 04/11/2003 takes atenolol cozaar ??? Obesity ([facility]) 04/30/2006 LW Onset: [id number] ??? Postmenopausal 04/16/2015 resolved ??? Zoster Past Surgical History: Past Surgical History: Procedure Laterality Date ??? BUNIONECTOMY ??? CATARACT REMOVAL Bilateral ??? HYSTERECTOMY total with BSO ??? SALPINGO-OOPHORECTOMY Bilateral Current Medications: Michele has a current medication list which includes the following prescription(s): acetaminophen, cholecalciferol, cyanocobalamin, hydrochlorothiazide, levothyroxine, metoprolol succinate, metoprolol succinate, multiple vitamins- minerals, simvastatin, and valsartan. Allergies: Allergies Allergen Reactions ??? Contrast [Iodinated Diagnostic Agents] Anaphylaxis ??? Penicillins Hives Has tolerated ancef per [facility] chart review. ??? Sulfa Antibiotics Hives Social History: Social [...] Cancer, Endometrial Negative Family History Physical Exam: BP (!) 146/80 (BP Location: Right Arm, BP Cuff Size: Regular - Long) Pulse 71 General Appearance: healthy and alert, no distress [...] confirms these findings. Assessment: Michele is a 81 y.o. old woman with a diagnosis of Stage 1A grade 2 endometrial cancer. ? Plan: 1.)?EMCA -?She will follow q 6 months for 5 years and will transition to the care of her primary WORKS MANAGER after initial follow-up here. ?? 2.)?Genetic risk factors were assessed and the patient does not meet the qualifications for a referral. ? 3.)?Labs and/or tests ordered include:?none. ?? 4.)?Health maintenance issues addressed today include??routine care with PCP. Thank you for allowing us to participate in the care of your patient. Sincerely, Dee Baker APRN, CNP 01/20/2022, 9:16 AM documented in this encounter Plan of Treatment Not on filedocumented as of this encounter Visit Diagnoses Diagnosis Endometrial cancer (HRC) - Primary Malignant neoplasm of corpus uteri, exce pt isthmus documented in this encounter Care Teams Roads And Parking Lots Sweeper Operator Relationship Specialty Start Date End Date Veronica Heredia DO PCP - General Family Practice 03/22/17 [address] [facility] [place] [address] documented as of this encounter
--- OUTSIDE RECORDS SUMMARY | 2022-08-15 14:50 | XMS_ITS | Encounter Summary ---
:1940 Author Organization [facility] Address [address] [place] [address] Care Team Providers Name Role Phone Veronica Heredia DO Primary Care Provider Reason for Visit Reason Comments Rectal Bleeding Encounter Details Date Type Department Care Team Description 12/28/2021 Nurse Triage [facility] Veronica Heredia, DO Rectal Bleeding [address] [facility] [address] [facility] [place] [address] [place] [address] [phone] (Wo rk) Social History Tobacco Use Types [...] documented as of this encounter Nursing Notes Irasema Vaca RN - 12/28/2021 12:13 PM CST Spoke to pt who notes rectal bleeding started yesterday after passing stool. But now passing more blood and with small stools. Pt notes small clots at times but states that toilet water is not red, no blood without stools or constant bleeding, no dizziness, no abdominal pain, no vomiting, no increasedpallor. Pt notes that her stools are small amounts more like small leela. Appointment made on 12/29/21 and home care advice given. Pt in agreement and will call back if symptoms increase or new symptoms develops. Problem list reviewed as related to this call. Reason for Disposition ??? MILD rectal bleeding (more than just a few drops or streaks) Protocols used: RECTAL [id number] RONMENTAL SPECIALIST documented in this encounter Plan of Treatment Not on filedocumented as of this encounter Visit Diagnoses Not on filedocumented in this encounter Care Teams Cable Tender Relationship Specialty Start Date End Date Veronica Heredia DO PCP - General Family Practice 03/22/17 [address] [facility] [place] [address] documented as of this encounter
--- OUTSIDE RECORDS SUMMARY | 2022-08-15 14:50 | XMS_ITS | Encounter Summary ---
:1940 Author Organization [facility] Address [address] [address] Care Team Providers Name Role Phone Veronica Heredia DO Primary Care Provider Reason for Referral Procedure/Equipment (Routine) - Incomplete Specialty Diagnoses / Procedures Referred By Contact Refer red To Contact Diagnoses Postmenopausal Veronica Heredia, DO Procedures DXA Bone Density Spine/Hip [address] [facility] [place] [address] Referral ID Status Reason Start Date Expiration Date Visits V isits Requested Authorized [id number] Incomplete 01/16/2022 04/17/2023 1 1 (Routine) - New Request Specialty Diagnoses / Procedures Referred By Contact Refer red To Contact Diagnoses Screen for colon cancer Veronica Heredia DO Procedures Endoscopy, Colon, Screening/Diagnostic [address] [facility] [place] [address] Referral ID Status Reason Start Date Expiration Date Visits V isits Requested Authorized [id number] New Request 07/16/2022 01/17/2024 1 1 Reason for Visit Reason Comments Hospital Discharge Follow-up [facility] 01/02-01/05 Encounter Details Date Type Department Care Team Description 01/16/2022 Office Visit Veronica Frazier, Hospital discharge follow-up (Primary Dx); Medicine DO Colitis; [address] [facility] [address] [address] Hypothyroi dism, unspecified type; [facility] Elevated serum creatinine; [place] [address] [place] Anemia, unspecified type; [phone] Vitamin B12 deficiency; [phone] Prediabetes; (Work) Screen for colon cancer; [phone] Postmenopausal (Fax) Social History Tobacco Use Types Packs/Day Years [...] Sign Reading Time Taken Comments Blood Pressure 136/80 01/16/2022 1:45 PM CDT Pulse 70 01/16/2022 1:45 PM CDT Temperature - - Respiratory Rate - - Oxygen Saturation - - Inhaled Oxygen Concentration - - Weight 80.9 kg (178 lb 7 oz) 01/16/2022 1:45 PM CDT Height 159 cm (5' 2.6) 01/16/2022 1:45 PM CDT Body Mass Index 32.02 01/16/2022 1:45 PM CDT documented in this encounter Progress Notes Veronica Heredia, DO - 01/16/2022 2:00 PM CDT CHIEF COMPLAINT: Chief Complaint Patient presents with ??? Hospital Discharge Follow-up [facility] 01/02-01/05 SUBJECTIVE: This is a 81 y.o. 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 She was sent home with oral vancomycin. Had an elevated creatinine on the day of discharge as well as anemia and thr ombocytopenia. Since discharge home she has been feeling much better. Eating and drinking normally. She is only having a couple of stools per day which are now formed without any blood. No current abdominal pain. No fever. Urination has improved was dark yellow before but is normalized in color. History of B12 deficiency, taking B12. History of hypothyroidism last TSH almost a year ago. History of prediabetes without recent A1c. Following with her dental technologist closely, had cataract surgery a year a half ago and since then she has had a right exotropia for which she is following with Ophthalmology. No current headache or double vision. No other neurologic symptoms. She is very active. Last bone density test 2010, no recent falls, no fractures, adequate vitamin-D and calcium per patient. PAST MEDICAL HISTORY: Patient Active Problem List Diagnosis ??? Essential hypertension (HRC) ??? Hyperlipidemia (HRC) ??? Calculus of kidney ??? Endometrial cancer (HRC) ??? Hypothyroidism (HRC) ??? Intermediate stage nonexudative age-related macular degeneration of both eyes MEDICATIONS: Current Outpatient Medications Medication Sig Dispense Refill [...] MOUTH EVERY DAY 90 Tablet 3 ??? Multiple Vitamins-Minerals (PRESERVISION AREDS 2 OR) Take 2 tablets by mouth daily. ??? simvastatin (ZOCOR) 20 MG tablet TAKE 1 TABLET BY MOUTH EVERY DAY 90 Tablet 2 ??? valsartan (DIOVAN) 160 MG tablet Take 1 Tablet by mouth daily. 90 Tablet 3 No current facility-administered medications for this visit. ALLERGIES: Allergies Allergen Reactions ??? Contrast [Iodinated Diagnostic Agents] Anaphylaxis ??? Penicillins Hives Has tolerated ancef per [facility] chart review. ??? Sulfa Antibiotics Hives OBJECTIVE: Vital Signs: BP 136/80 (BP Location: Left Arm, BP Cuff Size: Regular) Pulse 70 Ht 5' 2.6 (1.59 m) Wt 178 lb 7 oz (80.9 kg) BMI 32.02 kg/m?? Gen.: Alert, cooperative in no acute distress. Head: Normocephalic, atraumatic. Eyes: No scleral icterus or conjunctivitis present. Right exotropia. Nose: Patent, without deformity. Throat: Moist mucous membranes without lesions, erythema, [...] tone. Skin: No pallor. Neurologic: Alert, non-focal. ASSESSMENT/PLAN: ICD-10-CM 1. Hospital discharge follow-up Z09 2. Colitis K52.9 3. Hypothyroidism, unspecified type ([facility]) E03.9 TSH 4. Elevated serum creatinine R79.89 Basic Metabolic Panel 5. Anemia, unspecified type D64.9 CBC - Complete Blood Count-No Diff 6. Vitamin B12 deficiency ([facility]) E53.8 Vitamin B-12 7. Prediabetes R73.03 Hemoglobin A1C Glycosylated 8. Screen for colon cancer Z12.11 Endoscopy, Colon, Screening/Diagnostic 9. Postmenopausal Z78.0 DXA Bone Density Spine/Hip 1. No current pain, diarrhea or fever, recheck labs as above regarding anemia, thrombocytopenia elevated creatinine on discharge from the hospital. 2. Monitoring/screening labs as above, refill levothyroxine based on value. 3. Continue B12 supplementation. 4. She is due for her DEXA. Adequate calcium and vitamin-D were discussed. 5. She is due for her colonoscopy in July. 6. RTC prn and annually for well care. This was dictated using a voice recognition program, typographical and sound like errors may occur. documented in this encounter Plan of Treatment Scheduled Orders Name Type Priority Associated Diagnoses Order S chedule Endoscopy, Colon, GI Routine Screen for colon cancer Expected: Screening/Diagnostic 022, Expires: 07/19/2023 DXA Bone Density Imaging New Routine Postmenopausal Expected: 01/16/2022 Spine/Hip (Approximate), Expires: 2022 documented as of this encounter Results (ABNORMAL) Vitamin B-12 (01/16/2022 2:38 PM CDT) athologist Signature Vitamin B12 1,215 (H) 213 - 816 01/16/2022 [facility] pg/mL 8:44 PM CDT LABORATORY Specimen Anatomical Collection Method / Collection Time Recei la Time (Source) Location / Volume Laterality Blood Venipuncture / 01/16/2022 2:38 01/16/2022 2:38 Unknown PM CDT PM CDT Veronica Heredia DO LAB_1 Performing Organization Address City/State/[facility] Phon e Number [facility] [address] [place] [address] (ABNORMAL) Hemoglobin A1C Glycosylated (01/16/2022 2:38 PM CDT) [facility] Method Time Signature Hemoglobin A1C 5.8 (H) <=5.6 % 01/17/2022 [facility] 9:08 AM CDT [facility] Specimen Anatomical Collection Method / Collection Time Recei la Time (Source) Location / Volume Laterality Blood Venipuncture / 01/16/2022 2:38 01/16/2022 2:38 Unknown PM CDT PM CDT Narrative [facility] - 01/17/2022 9:08 AM CDT For patients not previously diagnosed with diabetes: 5.7-6.4%: Increased risk for diabetes 6.5% and greater: Diagnostic for diabete s For patients diagnosed with diabetes: <8.0%: Goal of therapy for ages 18-75 Clinicians may recommend a higher or low er goal for specific individuals. Veronica Heredia DO LAB_1 Performing Organization Address City/State/ZIP Code Phon e Number [facility] [address] [address] CBC - Complete Blood Count-No Diff (01/16/2022 2:38 PM CDT) P athologist Signature WBC 6.8 3.5 - 10.5 01/16/2022 [facility] x10(9)/L 2:45 PM CDT LABORATORY RBC 4.27 3.90 - 01/16/2022 [facility] 5.03 2:45 PM CDT LABORATORY x10(12)/L Hemoglobin 12.6 12.0 - 01/16/2022 [facility] 15.5 g/dL 2:45 PM CDT LABORATORY HCT 38.4 34.9 - 01/16/2022 [facility] 44.5 % 2:45 PM CDT LABORATORY MCV 89.9 80.0 - 01/16/2022 [facility] 100.0 fL 2:45 PM CDT LABORATORY MCH 29.5 27.6 - 01/16/2022 [facility] 33.3 pg 2:45 PM CDT LABORATORY MCHC 32.8 31.5 - 01/16/2022 [facility] 35.2 g/dL 2:45 PM CDT LABORATORY RDW 13.0 11.9 - 01/16/2022 [facility] 15.5 % 2:45 PM CDT LABORATORY Platelets 219 150 - 450 01/16/2022 [facility] x10(9)/L 2:45 PM CDT LABORATORY Automated NRBC 0 <=0 /100 01/16/2022 [facility] WBC 2:45 PM CDT LABORATORY Specimen Anatomical Collection Method / Collection Time Recei la Time (Source) Location / Volume Laterality Blood Venipuncture / 01/16/2022 2:38 01/16/2022 2:38 Unknown PM CDT PM CDT Veronica Heredia DO LAB_1 Performing Organization Address City/[facility]/ZIP Code Phon e Number [facility] [address] [place] [address] Cente (ABNORMAL) Basic Metabolic Panel (01/16/2022 2:38 PM CDT) Patholo gist Method Time Signature Sodium 144 136 - 145 01/16/2022 [facility] mmol/L 8:39 PM CDT LABORATORY Potassium 3.6 3.5 - 5.1 01/16/2022 [facility] mmol/L 8:39 PM CDT LABORATORY Chloride 104 98 - 109 01/16/2022 [facility] mmol/L 8:39 PM CDT LABORATORY CO2 29 20 - 29 01/16/2022 [facility] mmol/L 8:39 PM CDT LABORATORY Anion Gap 11 7 - 16 01/16/2022 [facility] mmol/L 8:39 PM CDT LABORATORY Calcium 9.5 8.4 - 10.4 01/16/2022 [facility] mg/dL 8:39 PM CDT LABORATORY BUN 21 7 - 26 01/16/2022 [facility] mg/dL 8:39 PM CDT LABORATORY Creatinine 1.21 (H) 0.55 - 01/16/2022 [facility] 1.02 mg/dL 8:39 PM CDT LABORATORY GFR, Estimated 46 (L) >60 01/16/2022 [facility] mL/min/1.7 8:39 PM CDT LABORATORY 3m2 Glucose 98 70 - 100 01/16/2022 [facility] mg/dL 8:39 PM CDT LABORATORY Comment: The given reference range is fo r the fasting state. Non-fasting reference range for glucose is 70 - 180 mg/dL. Hours Fasting 0 01/16/2022 8:39 PM CDT [facility] Specimen Anatomical Collection Method / Collection Time Recei la Time (Source) Location / Volume Laterality Blood Venipuncture / 01/16/2022 2:38 01/16/2022 2:38 Unknown PM CDT PM CDT Narrative [facility] - 01/16/2022 8:39 P M CDT The National Kidney Disease Education Pr ogram suggests measuring Cystatin C in patients with eGFRcrea of 45 to 59 ml/mi n/1.73^2 who do not have other markers of kidney damage (i.e. elevated urine Album in/Creatinine Ratio or a prior Cystatin C confirming the presence of chronic kidne y disease). Veronica Heredia DO LAB_1 Performing Organization Address City/State/ZIP Code Phon e Number [facility] [address] [place] [address] [facility] [address] [place] [address], [facility] TSH (01/16/2022 2:38 PM CDT) athologist Signature TSH, Sensitive 0.77 0.30 - 01/16/2022 [facility] 4.50 8:44 PM CDT LABORATORY uIU/mL Specimen Anatomical Collection Method / Collection Time Recei la Time (Source) Location / Volume Laterality Blood Venipuncture / 01/16/2022 2:38 01/16/2022 2:38 Unknown PM CDT PM CDT Veronica Heredia DO LAB_1 Performing Organization Address City/State/ZIP Code Phon e Number [facility] [address] [place] [address] documented in this encounter Visit Diagnoses Diagnosis Hospital discharge follow-up - Primary Other follow-up examination Colitis Other and unspecified noninfectious uzair roenteritis and colitis Hypothyroidism, unspecified type (HRC) Elevated serum creatinine Other nonspecific findings on examinatio n of blood Anemia, unspecified type Vitamin B12 deficiency (HRC) Other B-complex deficiencies Prediabetes Other abnormal glucose Screen for colon cancer Special screening for malignant neoplasm s, colon Postmenopausal Asymptomatic postmenopausal status (age- related) (natural) documented in this encounter Care Teams Professor Computer Science Relationship Specialty Start Date End Date Veronica Heredia DO PCP - General Family Practice 03/22/17 [address] [facility] [place] [address] documented as of this encounter
--- OUTSIDE RECORDS SUMMARY | 2022-08-15 14:50 | XMS_ITS | Encounter Summary ---
:1940 Author [facility] Address [address] [place] [address] Care Team Providers Name Role Phone Veronica Heredia DO Primary Care Provider Reason for Visit Reason Comments Refill simvastatin (ZOCOR) 20 MG ta blet [Pharmacy Med Name: SIMVASTATIN 20 MG TABLET] Encounter Details Date Type Department Care Team Description 09/07/2021 Refill [facility] Veronica Heredia, DO Refill (simvastatin [address] [facility] [address] [facility] (ZOCOR) [address] [Pharmacy Med Name: [place] [address] [place], [place] SIMVASTATIN 20 MG [phone] TABLET]) [phone] (Wo rk) Social History Tobacco Use Types [...] encounter Nursing Notes Lisa Pak RN - 09/07/2021 9:26 AM CDT Renewed medication per medication refill protocol. Requested Prescriptions Pending Prescriptions Disp Refills ??? simvastatin (ZOCOR) 20 MG tablet [Pharmacy Med Name: SIMVASTATIN 20 MG TABLET] 90 Tablet 2 Sig: TAKE 1 TABLET BY MOUTH EVERY DAY Interface, Out [employer] driving [employer] Prov Query - 09/07/2021 12:28 AM CDT simvastatin (ZOCOR) 20 MG tablet [Pharmacy Med Name: SIMVASTATIN 20 MG TABLET] Medication started: 04/18/2016 Last ordered by VERONICA HEREDIA: 06/30/2020 (434 days ago) QTY: 90, Refills: 3, Sig: take 1 tablet by mouth daily. (changed but equivalent) -> Refill x 9 months, qty: 90, refills: 2 (until due for an office visit) Last qualifying visit: 05/10/2021 (with VERONICA HEREDIA) (A more recent visit (in Internal Medicine with PRIYANKA RAMAN) was found) Next scheduled visit: 09/20/2021 (with VERONICA HEREDIA) Powered by Explor[employer] by [employer]bo, Reference: [id number], 09/07/2021 12:28:39 AM CDT, Pool: YURY JUAREZ REFILL ([id number]) documented in this encounter Plan of Treatment Not on filedocumented as of this encounter Visit Diagnoses Diagnosis Hyperlipidemia, unspecified hyperlipidem ia type (HRC) documented in this encounter Care Teams Spice Cleaner Relationship Specialty Start Date End Date Veronica Heredia DO PCP - General Family Practice 03/22/[address] [facility] [place] [address] documented as of this encounter
--- OUTSIDE RECORDS SUMMARY | 2022-08-15 14:50 | XMS_ITS | Encounter Summary ---
:1940 Author Organization [facility] Address [address] [place] [address] Care Team Providers Name Role Phone Veronica Heredia DO Primary Care Provider Reason for Visit Reason Comments Refill metoprolol succinate (TOPROL XL) 25 MG 24 hour release tablet [Pharmacy Med Name: METOPROLOL SUCC ER 25 MG TAB] Encounter Details Date Type Department Care Team Description 07/30/2021 Refill [facility] Veronica Heredia, DO Refill (metoprolol [address] [facility] [address] [facility] succinate (TOPROL XL) [address] MG 24 [place] [address] [place], [place] tablet [Pharmacy Med [phone] [address] Name: METOPROLOL SUCC ER [phone] (Wo rk) 25 MG TAB]) Social History Tobacco Use Types [...] Nursing Notes Jose Luis Jordan RN - 08/02/2021 5:22 PM CDT Renewed medication per medication refill protocol. Requested Prescriptions Pending Prescriptions Disp Refills metoprolol succinate (TOPROL XL) 25 MG 24 hour release tablet [Pharmacy Med Name: METOPROLOL SUCC ER 25 MG TAB] 90 Tablet 3 Sig: TAKE 1 TAB BY MOUTH DAILY. TAKE WITH TOPROL XL 50 MG TAB TO EQUAL 75 MG. Interface, Out Surescripts Prov Query - 07/30/2021 2:36 AM CDT metoprolol succinate (TOPROL XL) 25 MG 24 hour release tablet [Pharmacy Med Name: METOPROLOL SUCC ER25 MG TAB] Medication started: 07/09/2017 Last ordered by VERONICA HEREDIA: 06/30/2020 (395 days ago) QTY: 90, Refills: 3, Sig: take 1 tab by mouth daily. take with toprol xl 50 mg tab to equal 75 mg. (unchanged) -> The requested strength (25 mg extended release oral tablet) was last ordered on 06/30/2020. The patient is taking 50 mg extended release oral tablet as of 06/09/2021. -> The medication is active at more than one strength (25 mg on 06/30/2020, 50 mg on 06/09/2021). -> Refill x 12 months (until due for an office visit) -> Calculate the quantity and number of refills manually. Last qualifying visit: 05/10/2021 (with VERONICA HEREDIA) (A more recent visit (in Internal Medicine with PRIYANKA RAMAN) was found) Next scheduled visit: None Powered by Brics[employer] by Vinsula, Reference: [id number], 07/30/2021 2:36:27 AM CDT, Pool: YURY FP REFILL ([id number]) documented in this encounter Plan of Treatment Not on filedocumented as of this encounter Visit Diagnoses Diagnosis Essential hypertension (HRC) Unspecified essential hypertension documented in this encounter Care Teams Edge Roller Relationship Specialty Start Date End Date Veronica Heredia DO PCP - General Family Practice 03/22/17 [address] [facility] [address] [place], [place] [address] documented as of this encounter
--- OUTSIDE RECORDS SUMMARY | 2022-08-15 14:50 | XMS_ITS | Encounter Summary ---
:1940 Author Organization [facility] Address [address] [place] [address] Care Team Providers Name Role Phone Veronica Heredia DO Primary Care Provider Reason for Visit Reason Onset Date Comments Refill Patient Calling Back 07/31/2022 Encounter Details Date Type Department Care Team Description 07/31/2022 Refill [facility] Veronica Heredia, DO Refill; Patient Calling [phone] [facility] [address] [facility] [address] [place] [address] [place] [phone] (Wo rk) Social History Tobacco Use Types [...] encounter Nursing Notes Arash Jordan RN - 08/03/2022 10:00 AM CDT Renewed medication per medication refill standing order. Requested Prescriptions Signed Prescriptions Disp Refills metoprolol succinate (TOPROL XL) 25 MG 24 hour release tablet 90 Tablet 1 Sig: take 1 tab by mouth daily. take with toprol xl 50 mg tab to equal 75 mg. Authorizing Provider: VERONICA HEREDIA Ordering User: ARASH JORDAN Refused Prescriptions Disp Refills metoprolol succinate (TOPROL XL) 25 MG 24 hour release tablet [Pharmacy Med Name: METOPROLOL SUCC ER 25 MG TAB] 90 Tablet 1 Sig: TAKE 1 TAB BY MOUTH DAILY. TAKE WITH TOPROL XL 50 MG TAB TO EQUAL 75 MG. Refused By: ARASH JORDAN Reason for Refusal: Other Daniel Arvizu - 08/02/2022 12:18 PM CDT Pt LM on the refill line requesting refill go to [facility] in [place]. Updated pharmacy. Interface, Out Surescripts Prov Query - 07/31/2022 12:41 AM CDT metoprolol succinate (TOPROL XL) 25 MG 24 hour release tablet [Pharmacy Med Name: METOPROLOL SUCC ER25 MG TAB] Medication started: 07/09/2017 Last ordered by VERONICA HEREDIA: 08/02/2021 (363 days ago) QTY: 90, Refills: 3, Sig: take 1 tab by mouth daily. take with toprol xl 50 mg tab to equal 75 mg. (unchanged) -> The requested strength (25 mg extended release oral tablet) was last ordered on 08/02/2021. The patient is taking 50 mg extended release oral tablet as of 06/16/2022. -> The medication is active at more than one strength (25 mg on 08/02/2021, 50 mg on 06/16/2022). -> Refill x 6 months (until due for an office visit) -> Calculate the quantity and number of refills manually. Last qualifying visit: 01/16/2022 (with VERONICA HEREDIA) Next scheduled visit: None [facility] Embedded Refills, Reference: [id number], 07/31/2022 12:41:36 AM CDT, Pool: YURY FP REFILL ([id number]) documented in this encounter Plan of Treatment Not on filedocumented as of this encounter Visit Diagnoses Diagnosis Essential hypertension (HRC) Unspecified essential hypertension documented in this encounter Care Teams Porcelain Slusher Relationship Specialty Start Date End Date Veronica Heredia, DO PCP - General Family Practice 03/22/17 [address] [facility] [place] [address] documented as of this encounter
--- OUTSIDE RECORDS SUMMARY | 2022-08-15 14:50 | XMS_ITS | Encounter Summary ---
:1940 Author Organization [facility] Address [address] [place] [address] Care Team Providers Name Role Phone Veronica Heredia DO Primary Care Provider Encounter Details Date Type Department Care Team Description 01/16/2022 Lab Visit [facility] Essential hypertension (Prim brock Dx); [address] [facility] Hyp othyroidism, unspecified type; Drive Elevated serum creatinine; [place] [address] Anemia, unspecified type; [phone] Prediabetes; Vitamin B12 def iciency Social History Tobacco Use Types Packs/Day Years [...] on file documented as of this encounter Progress Notes Veronica Heredia DO - 01/16/2022 2:30 PM CDT Addended by: VERONICA HEREDIA on: 01/17/2022 08:02 AM Modules accepted: Orders documented in this encounter Plan of Treatment Not on filedocumented as of this encounter Procedures Procedure Name Priority Date/Time Associated Diagnosis Comme nts TSH, SENSITIVE Routine 01/16/2022 2:38 PM Hypothyroidism, Resu lts for this CDT unspecified type procedure a re in the results section. BASIC METABOLIC Routine 01/16/2022 2:38 PM Elevated serum Resu lts for this PANEL CDT creatinine procedure are i n the results section. COMPLETE BLOOD Routine 01/16/2022 2:38 PM Anemia, unspecified Results for this COUNT-NO DIFF CDT type procedure are in the results section. HGB A1C Routine 01/16/2022 2:38 PM Prediabetes Results f or this CDT procedure are i n the results section. VITAMIN B12 ONLY Routine 01/16/2022 2:38 PM Vitamin B12 Resul ts for this CDT deficiency procedure are i n the results section. documented in this encounter Results (ABNORMAL) Basic Metabolic Panel (04/26/2022 7:47 AM CDT) [facility] Method Time Signature Sodium 142 136 - 145 04/26/2022 [facility] mmol/L 12:15 PM CDT LABORATORY Potassium 4.0 3.5 - 5.1 04/26/2022 [facility] mmol/L 12:15 PM CDT LABORATORY Chloride 103 98 - 109 04/26/2022 [facility] mmol/L 12:15 PM CDT LABORATORY CO2 30 (H) 20 - 29 04/26/2022 [facility] mmol/L 12:15 PM CDT LABORATORY Anion Gap 9 7 - 16 04/26/2022 [facility] mmol/L 12:15 PM CDT LABORATORY Calcium 9.1 8.4 - 10.4 04/26/2022 [facility] mg/dL 12:15 PM CDT LABORATORY BUN 28 (H) 7 - 26 04/26/2022 [facility] mg/dL 12:15 PM CDT LABORATORY Creatinine 1.12 (H) 0.55 - 04/26/2022 [facility] 1.02 mg/dL 12:15 PM CDT LABORATORY GFR, Estimated 50 (L) >60 04/26/2022 [facility] mL/min/1.7 12:15 PM CDT LABORATORY 3m2 Glucose 103 (H) 70 - 100 04/26/2022 [facility] mg/dL 12:15 PM CDT LABORATORY Comment: The given reference range is fo r the fasting state. Non-fasting reference range for glucose is 70 - 180 mg/dL. Hours Fasting 12 04/26/2022 12:15 PM CDT [facility] Specimen Anatomical Collection Method / Collection Time Recei la Time (Source) Location / Volume Laterality Blood Venipuncture / 04/26/2022 7:47 04/26/2022 7:47 Unknown AM CDT AM CDT Narrative [facility] - 04/26/2022 12:15 PM CDT The National Kidney Disease Education Pr ogram suggests measuring Cystatin C in patients with eGFRcrea of 45 to 59 ml/mi n/1.73^2 who do not have other markers of kidney damage (i.e. elevated urine Album in/Creatinine Ratio or a prior Cystatin C confirming the presence of chronic kidne y disease). Veronica Heredia DO LAB_1 Performing Organization Address City/[facility] Phon e Number [facility] [address] [place] [address] [facility] [address] [place] [address], [facility] (ABNORMAL) Vitamin B-12 (01/16/2022 2:38 PM CDT) athologist Signature Vitamin B12 1,215 (H) 213 - 816 01/16/2022 [facility] pg/mL 8:44 PM CDT LABORATORY Specimen Anatomical Collection Method / Collection Time Recei la Time (Source) Location / Volume Laterality Blood Venipuncture / 01/16/2022 2:38 01/16/2022 2:38 Unknown PM CDT PM CDT Veronica Heredia DO LAB_1 Performing Organization Address City/State/ZIP [facility] Phon e Number [facility] [address] [place] [address] (ABNORMAL) Hemoglobin A1C Glycosylated (01/16/2022 2:38 PM CDT) [facility] Method Time Signature Hemoglobin A1C 5.8 (H) <=5.6 % 01/17/2022 [facility] 9:08 AM CDT [facility] Specimen Anatomical Collection Method / Collection Time Recei la Time (Source) Location / Volume Laterality Blood Venipuncture / 01/16/2022 2:38 01/16/2022 2:38 Unknown PM CDT PM CDT Narrative [facility] - 01/17/2022 9:08 AM CDT For patients not previously diagnosed with diabetes: 5.7-6.4%: Increased risk for diabetes 6.5% and greater: Diagnostic for diabete s For patients diagnosed with diabetes: <8.0%: Goal of therapy for ages 18-75 Clinicians may recommend a higher or low er goal for specific individuals. Veronica Heredia DO LAB_1 Performing Organization Address City/State/ZIP Code Phon e Number [facility] [address] [address] CBC - Complete Blood Count-No Diff (01/16/2022 [...] Organization Address City/State/ZIP Code Phon e Number [facility] [address] [place] [address] [place] (ABNORMAL) Basic Metabolic Panel (01/16/2022 2:38 PM CDT) [facility] Method Time Signature Sodium 144 136 - 145 01/16/2022 [facility] mmol/L 8:39 PM CDT LABORATORY Potassium 3.6 3.5 - 5.1 01/16/2022 [facility] mmol/L 8:39 PM CDT LABORATORY Chloride 104 98 - 109 01/16/2022 [facility] mmol/L 8:39 PM CDT LABORATORY CO2 29 20 - 29 01/16/2022 [facility] mmol/L 8:39 PM CDT LABORATORY Anion Gap 11 7 - 16 01/16/2022 [facility] mmol/L 8:39 PM CDT LABORATORY Calcium 9.5 8.4 - 10.4 01/16/2022 [facility] mg/dL 8:39 PM CDT LABOR[facility]ORY BUN 21 7 - 26 01/16/2022 [facility] mg/dL 8:39 PM CDT LABORATORY Creatinine 1.21 (H) 0.55 - 01/16/2022 [facility] 1.02 mg/dL 8:39 PM CDT LABORATORY GFR, Estimated 46 (L) >60 01/16/2022 [facility] mL/min/1.7 8:39 PM CDT LABORATORY 3m2 Glucose 98 70 - 100 01/16/2022 [facility] mg/dL 8:39 PM CDT LABORATORY Comment: The [...] 2:38 Unknown PM CDT PM CDT Narrative [facility] - 01/16/2022 8:39 P M CDT The National Kidney Disease Education Pr ogram suggests measuring Cystatin C in patients with eGFRcrea of 45 to 59 ml/mi n/1.73^2 who do not have other markers of kidney damage (i.e. elevated urine Album in/Creatinine Ratio or a prior Cystatin C confirming the presence of chronic kidne y disease). Veronica Heredia DO LAB_1 Performing Organization Address City/[facility]/ZIP [facility] Phon e Number [facility] [address] [place] [address] [facility] [address] [facility] [place] [phone], [facility] TSH (01/16/2022 2:38 PM CDT) athologist Signature TSH, Sensitive 0.77 0.30 - 01/16/2022 [facility] 4.50 8:44 PM CDT LABORATORY uIU/mL Specimen Anatomical Collection Method / Collection Time Recei la Time (Source) Location / Volume Laterality Blood Venipuncture / 01/16/2022 2:38 01/16/2022 2:38 Unknown PM CDT PM CDT Veronica Heredia DO LAB_1 Performing Organization Address [facility] Phon e Number [facility] [address] [place] [address] documented in this encounter Visit Diagnoses Diagnosis Essential hypertension (HRC) - Primary Unspecified essential hypertension Hypothyroidism, unspecified type (HRC) Elevated serum creatinine Other nonspecific findings on examinatio n of blood Anemia, unspecified type Prediabetes Other abnormal glucose Vitamin B12 deficiency (HRC) Other B-complex deficiencies documented in this encounter Care Teams Asset Protection Detective Relationship Specialty Start Date End Date Veronica Heredia DO PCP - General Family Practice 03/22/17 [address] [facility] Ctr [place] [address] documented as of this encounter
--- OUTSIDE RECORDS SUMMARY | 2022-08-15 14:50 | XMS_ITS | Encounter Summary ---
:1940 Author Organization [facility] Address [address] [place] [address] Care Team Providers Name Role Phone RobleskarinaVeronica DO Primary Care Provider Encounter Details Date Type Department Care Team Description 04/26/2022 Lab Visit [facility] Elevated serum creatinine; [address] [facility] [place] [address] Social History Tobacco Use Types [...] Associated Diagnosis Comme nts BASIC METABOLIC Routine 04/26/2022 7:47 AM Elevated serum Resu lts for this PANEL CDT creatinine procedure are in Essential the results hypertension section. documented in this encounter Results (ABNORMAL) Basic Metabolic Panel (04/26/2022 7:47 AM CDT) [facility] Method Time Signature Sodium 142 136 - 145 04/26/2022 [facility] mmol/L 12:15 PM CDT LABORATORY Potassium 4.0 3.5 - 5.1 04/26/2022 [facility] mmol/L 12:15 PM CDT LABORATORY Chloride 103 98 - 109 04/26/2022 [facility] mmol/L 12:15 PM CDT LABORATORY CO2 30 (H) 20 - 29 04/26/2022 [facility] mmol/L 12:15 PM CDT LABORATORY Anion Gap 9 7 - 16 04/26/2022 [facility] mmol/L 12:15 PM CDT LABORATORY Calcium 9.1 8.4 - 10.4 04/26/2022 [facility] mg/dL 12:15 PM CDT LABORATORY BUN 28 (H) 7 - 26 04/26/2022 [facility] mg/dL 12:15 PM CDT LABORATORY Creatinine 1.12 (H) 0.55 - 04/26/2022 [facility] 1.02 mg/dL 12:15 PM CDT LABORATORY GFR, Estimated 50 (L) >60 04/26/2022 [facility] mL/min/1.7 12:15 PM CDT LABORATORY 3m2 Glucose 103 (H) 70 - 100 04/26/2022 [facility] mg/dL 12:15 PM CDT LABORATORY Comment: The [...] 7:47 Unknown AM CDT AM CDT Narrative [facility] - 04/26/2022 12:15 PM CDT The [...] Organization Address City/State/ZIP Code Phon e Number [facility] [address] [place] [address] [facility] [address] [place] [address], [facility] documented in this encounter Visit Diagnoses Diagnosis Elevated serum creatinine Other nonspecific findings on examinatio n of blood Essential hypertension (HRC) Unspecified essential hypertension documented in this encounter Care Teams Drill Sergeant Relationship Specialty Start Date End Date Veronica Heredia DO PCP - General Family Practice 03/22/17 [address] [facility] [place] [address] documented as of this encounter
--- OUTSIDE RECORDS SUMMARY | 2022-08-15 14:51 | XMS_ITS | Encounter Summary ---
:1940 Author Organization [facility] Address [address] [place] [address] Care Team Providers Name Role Phone Veronica Heredia DO Primary Care Provider Reason for Visit Reason Comments Vestibular Therapies (Routine) - Closed Specialty Diagnoses / Procedures Referred By Contact Refer red To Contact Diagnoses Benign paroxysmal positional vertigo, [place] [address] [facility] r [place] [address] Referral ID Status Reason Start Date Expiration Date Visits Requ ested Visits Authorized [id number] Closed 06/30/2020 08/29/2020 1 1 Encounter Details Date Type Department Care Team Description 07/07/2020 Office Visit Lionel Henry, Dionna rees paroxysmal positional vertigo of right ear (Primary Dx); Therapy PT Benign paroxysmal positional vertigo of left ear [address] [facility] [address] [facility] [place] [address] [place] [phone] Social History Tobacco Use Types Packs/Day Years [...] documented as of this encounter Progress Notes Lionel Montero P, PT - 07/07/2020 9:45 AM CDT [facility] Physical Therapy Progress Note/Discharge Summary Visit Number: 3 Initial Certification Period: 07/02/2020 to 08/01/2020 Referring Provider: Veronica Heredia Visit Diagnosis: 1. Benign paroxysmal positional vertigo of right ear 2. Benign paroxysmal positional vertigo of left ear Precautions: HTN, history of cancer SUBJECTIVE: Prospect super after last visit. She had an episode of feeling shaky and a little dizzy after she stood up yesterday mid morning. She has noticed a pressure release in her right ear when lying on that side the past couple of days. She otherwise is not having any room spinning symptoms with bed mobility. OBJECTIVE: Positional Tests: Test performed with fixation blocked (frenzel goggles on): Right hallpike: negative for dizziness and positive nystagmus: latency of nystagmus - 2 seconds, direction of nystagmus - right torsion, up beating, duration of nystagmus - ~15 seconds Left hallpike: negative for dizziness and positive nystagmus: latency of nystagmus - 2 seconds, direction of nystagmus - left torsion, up beating, duration of nystagmus - ~20 seconds Right roll test: negative dizziness and positive nystagmus: mild ageotropic Left roll test: negative dizziness and positive nystagmus: mild ageotropic Treatment/Education Today: 15 minutes of neuromuscular re-education: Re-testing as noted above. Educated on findings, no need for further repositioning exercises. Reminded patient she can follow back up if symptoms persist. HEP: None Timed Code Treatment Minutes: 15 Total Treatment Time: 15 minutes ASSESSMENT/PROGRESS TOWARD GOALS: Signs and symptoms consistent with bilateral BPPV. Patient is no longer experiencing room spinning symptoms. There is still some evidence of nystagmus noted with roll testing and Hallpike testing bilaterally but in the absence of symptoms, may not be a finding that needs attention. Patient has noticeda significant improvement in symptoms despite no change in DHI. No further vestibular treatment given at this time. Patient feels comfortable with this plan. Goals/Functional Outcomes: Patient will no longer have dizziness with rolling in bed in 2-4 week(s). MET Patient will be independent with home exercise program in 2-4 week(s). NOT NEEDED Remove debris from semicircular canals to alleviate symptoms of vertigo with functional movements in2-4 week(s). MET [facility] Physical Therapy Discharge Summary Outcome measures at discharge: PT - Discharge Total Visits: 3 Reason for discharge: Therapy goals met, or therapist expects patient to meet goals through home program. PT - Vestibular Dizziness Handicap Inventroy (DHI) (0-100, 0 being best): 16 Attainment of goals: See above Patient Compliance with Therapy: Patient was compliant with attendance and therapy recommendations. Discharge recommendations: Patient will continue to work independently with home program/self management strategies. Patient to return to therapy if symptoms recur. Therapist: Angel Montero, PT, DPT, CSCS, CIMT, 7006 documented in this encounter Plan of Treatment Scheduled Referrals Name Type Priority Associated Diagnoses Order S [facility] Physical Therapy Referral Routine Benign paroxysmal positi onal Ordered: 06/30/2020 vertigo, unspecified laterality documented as of this encounter Visit Diagnoses Diagnosis Benign paroxysmal positional vertigo of right ear - Primary Benign paroxysmal positional vertigo of left ear documented in this encounter Care Teams Paperboard Boxes Estimator Relationship Specialty Start Date End Date Veronica Heredia, PCP - General Family Practice 03/22/17 [address] [facility] [place] [address] documented as of this encounter
--- OUTSIDE RECORDS SUMMARY | 2022-08-15 14:51 | XMS_ITS | Encounter Summary ---
:1940 Author Organization [facility] Address [address] [place] [address] Care Team Providers Name Role Phone Veronica Heredia DO Primary Care Provider Reason for Referral Consult/Transfer Care (Routine) - Closed Specialty Diagnoses / Procedures Referred By Contact Refer red To Contact Diagnoses Paresthesia Positive FLORINDA (antinuclear [place] [address] [place] [address] Referral ID Status Reason Start Date Expiration Date Visits Requ ested Visits Authorized [id number] Closed 02/23/2021 05/25/2022 1 1 Scheduling Instructions Your provider has recommended an appoint ment with [facility]. You may call [phone] to schedule your appoi ntment.We suggest you call your health insurance company about your coverage an d benefits for this appointment. Reason for Visit Reason Comments LAB RESULTS Encounter Details Date Type Department Care Team Description 02/23/2021 Telephone [facility] Medic Veronica [place] DO LAB RESULTS [address] [facility] [address] [facility] [place] [address] [place] [address] [phone] Social History Tobacco Use Types Packs/Day Years [...] documented as of this encounter Nursing Notes Veronica Heredia DO - 02/23/2021 12:55 PM CDT Called to discuss lab results, positive FLORINDA and decreased kidney function tests. She thinks she may have been dehydrated yesterday. No current urinary symptoms. Plan to recheck her creatinine in a UA in the next week or 2, if abnormal plan to pursue renal ultrasound and nephrology consultation. Given the positive FLORINDA and neuropathic symptoms she does have an EMG scheduled would also like her to meet with Neurology in consultation following the EMG to review results and further evaluate. documented in this encounter Plan of Treatment Scheduled Referrals Name Type Priority Associated Diagnoses Order S [facility] Neurology Referral Routine Paresthesia Ordered: 02/23/2021 Consult-Adults Positive FLORINDA (antinuclear antibody) documented as of this encounter Results (ABNORMAL) Urinalysis Routine, Micro/Culture if Pos (03/01/2021 8:44 AM CDT) [facility] Method Time Signature Urine Culture Urinalysis 03/01/2021 [facility] Comment results meet 8:57 AM CDT LABORATORY criteria for reflex, culture performed. Urine Color Yellow Straw-Yello 03/01/2021 [facility] w 8:57 AM CDT LABORATORY Urine Clarity Clear Clear 03/01/2021 [facility] 8:57 AM CDT LABORATORY Specific 1.015 1.005 - 03/01/2021 [facility] [place], 1.030 8:57 AM CDT LABORATORY Urine PH Urine 7.0 5.0 - 8.0 03/01/2021 [facility] 8:57 AM CDT LABORATORY Protein, Negative Neg/Trace 03/01/2021 [facility] Urine Qual 8:57 AM CDT LABORATORY (mg/dL) Glucose Urine Negative Negative 03/01/2021 [facility] Qual (mg/dL) 8:57 AM CDT LABORATORY Ketones, Negative Negative 03/01/2021 [facility] Urine (mg/dL) 8:57 AM CDT LABORATORY Urobilinogen, 0.2 <2.0 03/01/2021 [facility] Urine (EU/dL) 8:57 AM CDT LABORATORY Bilirubin Negative Negative 03/01/2021 [facility] Urine 8:57 AM CDT LABORATORY Blood, Urine Negative Neg/Trace 03/01/2021 [facility] 8:57 AM CDT LABORATORY Nitrite Urine Negative Negative 03/01/2021 [facility] 8:57 AM CDT LABORATORY Leukocyte Large (A) Negative 03/01/2021 [facility] Est. 8:57 AM CDT LABORATORY Urine Source Clean Catch 03/01/2021 [facility] 8:57 AM CDT LABORATORY Specimen Anatomical Collection Method Collection Time Receive d Time (Source) Location / / Volume Laterality Urine URINE SPECIMEN Non-blood 03/01/2021 8:44 AM 021 8:44 COLLECTION, CLEAN Collection / CDT AM CDT CATCH / Unknown Unknown Veronica Heredia DO LAB_1 Performing Organization Address City/State/ZIP Code Phon e Number [facility] [address] [place] [address] [facility] Creatinine (03/01/2021 8:38 AM CDT) P athologist Signature Creatinine 0.91 0.55 - 03/01/2021 [facility] 1.02 mg/dL 12:24 PM CDT LABORATORY GFR, Estimated >60 >60 03/01/2021 [facility] mL/min/1.7 12:24 PM CDT LABORATORY 3m2 Specimen Anatomical Collection Method / Collection Time Recei la Time (Source) Location / Volume Laterality Blood Venipuncture / 03/01/2021 8:38 03/01/2021 8:38 Unknown AM CDT AM CDT Veronica Heredia DO LAB_1 Performing Organization Address City/State/ZIP Code Phon e Number [facility] [address] [place] [address] (ABNORMAL) Methylmalonic Acid QN Serum (02/22/2021 2:07 PM CDT) [facility] Method Time Signature Methylmalonic 0.78 (H) 0.00 - 02/26/2021 [facility] Acid 0.40 1:23 AM CDT LABORATORIES umol/L Comment: Slight elevation 0.41-0.99 umol/L ? Consistent with mild vitamin B 12 deficiency, renal ? insufficiency, or intravascula r volume contraction. Moderate elevation 1.00-9.99 umol/L ?Consistent with mild vitamin B12 deficiency. Massive elevation - Greater than or equa l to 10 umol/L ?Consistent with significant vitamin B12 deficiency ?or with inborn errors of met abolism. INTERPRETIVE INFORMATION: MMA Serum/Plas ma, ?V itamin B12 Status This test was developed and its performa nce characteristics determined by [facility]. It has not been cleared or approved by the [place] Food and Drug Adminis tration. This test was performed in a CLIA certified laboratory and is intended for clinical purposes. Performed By: [facility] [address] [place] [address] Bundle Helper: Lita George MD Specimen Anatomical Collection Method / Collection Time Recei la Time (Source) Location / Volume Laterality Blood Venipuncture / 02/22/2021 2:07 02/22/2021 2:08 Unknown PM CDT PM CDT Veronica Heredia DO LAB_1 Performing Organization Address City/State/ZIP Code Phon e Number [facility] [address] [place], [place] [address] documented in this encounter Visit Diagnoses Diagnosis Paresthesia - Primary Disturbance of skin sensation Positive FLORINDA (antinuclear antibody) Other and unspecified nonspecific immuno logical findings Elevated serum creatinine Other nonspecific findings on examinatio n of blood documented in this encounter Care Teams Juice Standardizer Relationship Specialty Start Date End Date Veronica Heredia DO PCP - General Family Practice 03/22/[address] [address] [facility] [place] [address] documented as of this encounter
--- OUTSIDE RECORDS SUMMARY | 2022-08-15 14:51 | XMS_ITS | Encounter Summary ---
:1940 Author Organization [facility] Address [address] [place] [address] Care Team Providers Name Role Phone Veronica Heredia DO Primary Care Provider Reason for Visit Reason Comments Refill metoprolol succinate (TOPROL XL) 50 MG 24 hour release tablet [Pharmacy Med Name: METOPROLOL SUCC ER 50 MG TAB] Encounter Details Date Type Department Care Team Description 06/08/2021 Refill [facility] Veronica Heredia, DO Refill (metoprolol [address] [facility] [address] [facility] succinate (TOPROL XL) [address] [place] 24 [place] [address] [place] tablet [Pharmacy Med [phone] Name: METOPROLOL SUCC ER [phone] (Wo rk) 50 MG TAB]) Social History [...] documented as of this encounter Nursing Notes Roula Ochoa RN - 06/09/2021 12:30 PM CDT Renewed medication per medication refill protocol. Requested Prescriptions Pending Prescriptions Disp Refills ??? metoprolol succinate (TOPROL XL) 50 MG 24 hour release tablet [Pharmacy Med Name: METOPROLOL SUCC ER 50 MG TAB] 90 Tablet 3 Sig: TAKE 1 TABLET BY MOUTH EVERY DAY Interface, Out Surescripts Prov Query - 06/08/2021 12:32 AM CDT metoprolol succinate (TOPROL XL) 50 MG 24 hour release tablet [Pharmacy Med Name: METOPROLOL SUCC ER50 MG TAB] Medication started: 07/09/2017 Last ordered by VERONICA HEREDIA: 06/30/2020 (343 days ago) QTY: 90, Refills: 3, Sig: take 1 tablet by mouth daily. (changed but equivalent) -> The requested strength (50 mg extended release oral tablet) was last ordered on 06/30/2020. The patient is taking 25 mg extended release oral tablet as of 06/30/2020. -> The medication is active at more than one strength (50 mg on 06/30/2020, 25 mg on 06/30/2020). -> Refill x 12 months, qty: 90, refills: 3 (until due for an office visit) Last qualifying visit: 05/10/2021 (with VERONICA HEREDIA) Next scheduled visit: None Powered by [employer], Reference: [id number], 06/08/2021 12:32:53 AM CDT, Pool: YURY JUAREZ REFILL ([id number]) documented in this encounter Plan of Treatment Not on filedocumented as of this encounter Visit Diagnoses Diagnosis Essential hypertension (HRC) Unspecified essential hypertension documented in this encounter Care Teams Clerical Proofreader Relationship Specialty Start Date End Date Veronica Heredia DO PCP - General Family Practice 03/22/[address] [facility] [address] [place], [place] [address] documented as of this encounter
--- OUTSIDE RECORDS SUMMARY | 2022-08-15 14:51 | XMS_ITS | Encounter Summary ---
:1940 Author Organization [facility] Address [address] [place] [address] Care Team Providers Name Role Phone Veronica Heredia DO Primary Care Provider Reason for Visit Reason Comments Medication Questions Encounter Details Date Type Department Care Team Description 07/08/2021 Telephone [facility] Veronica Sullivan, DO Medication Questions [address] [facility] [address] [facility] [place] [address] [place] [phone] (Wo rk) Social History Tobacco Use Types [...] of this encounter Nursing Notes Irasema Vaca - 07/08/2021 5:53 PM CDT Spoke to pt and and she was given Veronica Heredia DO message. Pt in agreement with plan and has homeBP cuff. Veronica Heredia DO - 07/08/2021 2:17 PM CDT Valsartan has been sent in in place of losartan, plant to recheck a BMP in 1 month and do a nurse blood pressure check at that time or update me with home blood pressure monitoring values if she has a cuff. Mone Kunz RN - 07/08/2021 1:40 PM CDT Clinician Action: New Order Medication Clinician Next Step: Patient is NOT expecting a call back from care team Specific Request(s): 1. Replacement for Losartan Patient calling in regards to medication change. At pre-op visit patient had discussed no longer being able to get Losartan and thought PCP would be sending a new medication. She still has some Losartan left. Pharmacy had called her to see if a new medication would be sent so patient is calling to check in. Connor Brunner - 07/08/2021 12:04 PM CDT Medications - Med Change / Question Is this a medication change or a general question? Med Question What is your question or concern? Pt is calling was stating that the PCP was going to change the Losartan ( discontinued ) not sure what the new medication was can the PCP send the new proscription over to [facility] What is the name and dose of the medication? losartan (COZAAR) 100 MG tablet How often do you take it? Who prescribed it? Veronica Heredia DO If a prescription is needed, patient would like it filled at the pharmacy listed in Meds & Orders. (Verify the pharmacy patient would like to use for this request is highlighted in blue in PharmacySelection under Meds & Orders) Is it okay to leave a detailed message on your voicemail? Yes (Advise caller that the PN call back number will end with [phone] or unknown) Please route to: Triage Pool documented in this encounter Plan of Treatment Not on filedocumented as of this encounter Visit Diagnoses Diagnosis Essential hypertension (HRC) - Primary Unspecified essential hypertension documented in this encounter Care Teams Grade Foreman Relationship Specialty Start Date End Date Veronica Heredia DO PCP - General Family Practice 03/22/17 [address] [facility] [address] [place], [place] [address] documented as of this encounter
--- OUTSIDE RECORDS SUMMARY | 2022-08-15 14:51 | XMS_ITS | Encounter Summary ---
:1940 Author Organization [facility] Address [address] [place] [address] Care Team Providers Name Role Phone Veronica Heredia DO Primary Care Provider Reason for Visit Reason Comments RESULTS, TEST Encounter Details Date Type Department Care Team Description 06/30/2020 Telephone [facility] Veronica Heredia, RESULTS, TEST [address] [facility] [address] [facility] [place] [address] [facility] [place] [id number] (Wo rk) Social History Tobacco Use Types [...] documented as of this encounter Nursing Notes Jayne Johnson LPN - 06/30/2020 2:05 PM CDT Called and spoke with pt regarding below message. Pt verbalized understanding. Veronica Heredia DO - 06/30/2020 1:47 PM CDT Her TSH is in the low-normal range suggesting that her levothyroxine dosage is too high, I would like to decrease this to 75 mcg daily and recheck her TSH in 6-8 weeks or she can recheck this in [place]. Her sodium, potassium and kidney function are normal, Hyzaar refills have been sent. documented in this encounter Plan of Treatment Not on filedocumented as of this encounter Visit Diagnoses Diagnosis Hypothyroidism, unspecified type (HRC) - Primary Essential hypertension (HRC) Unspecified essential hypertension documented in this encounter Care Teams Upper Extremity Surgeon Relationship Specialty Start Date End Date Veronica Heredia DO PCP - General Family Practice 03/22/17 [address] [facility] [place] [address] documented as of this encounter
--- OUTSIDE RECORDS SUMMARY | 2022-08-15 14:51 | XMS_ITS | Encounter Summary ---
:1940 Author Organization [facility] Address [address] [place] [address] Care Team Providers Name Role Phone Veronica Heredia DO Primary Care Provider Reason for Visit Reason Comments CONSULT Consult/Transfer Care (Routine) - Closed Specialty Diagnoses / Procedures Referred By Contact Refer red To Contact Diagnoses Paresthesia Positive FLORINDA (antinuclear [place] [address] [facility] [place] [address] Referral ID Status Reason Start Date Expiration Date Visits Requ ested Visits Authorized [id number] Closed 02/23/2021 05/25/2022 1 1 Encounter Details Date Type Department Care Team Description 05/20/2021 Office Visit Specialty [facility] Kashif Pleitez DO Radiculopathy of [address] lumbar region (Primary [address] Dx) [place] [id number] [phone] Social History Tobacco Use Types Packs/Day Years [...] Sign Reading Time Taken Comments Blood Pressure 140/92 05/20/2021 10:47 AM CDT Pulse 69 05/20/2021 10:47 AM CDT Temperature - - Respiratory Rate 16 05/20/2021 10:47 AM CDT Oxygen Saturation - - Inhaled Oxygen Concentration - - Weight - - Height - - Body Mass Index - - documented in this encounter Patient Instructions Patient InstructionsHien Villarreal RN - 05/20/2021 11:00 AM CDT MRI's may require a prior authorization through your insurance. This prior authorization process isstarted when you schedule the MRI. Please schedule this appointment at least 14 days from the day you call to allow this process to be completed. It may require an appeal or more documentation to support medical necessity. If imaging is completed prior to this approval we can not guarantee coverage. documented in this encounter Progress Notes Kashif Pleitez DO - 05/20/2021 11:00 AM CDT Patient is a 80-year-old individual that I am seeing for an abnormal EMG. She has a history of odd sensations in her feet described as achiness and numbness. Mostly a problem at night. Would not be associated with symptoms while she would walk. No particular radicular symptoms. Denies recurrent falls. No change in her bowel or bladder. She underwent an EMG which shows L3 through S1 radicular changes bilaterally. Her symptoms involving her feet seem to be some better. No Lhermitte sign. No numbness, weakness, tingling on her face. She has a history of hyperlipidemia, hypertension, hypothyroidism, prior history of endometrial cancer. History of renal stone She currently is on vitamin-D, Synthroid, Cozaar, Toprol, Zocor. Nonsmoker. History of bunionectomy, hysterectomy, salpingoophorectomy. Blood pressure 140/92 pulse 69 She has a right exo trapezii. Extraocular movements are full. Face moves symmetrically. Tongue is midline. No dysarthria Deltoid, biceps, finger flexor and finger abductor strength is normal. Pretty good power for hip flexion, hip abduction, hip adduction, quadriceps and tibialis anterior Reflexes are 1+ at the knees and ankles. Toes are downgoing. Little patchy distribution sensory changes in both lower extremities. Straight leg raising test is negative Reviewed her previous EMG report which shows needle changes consistent with old radicular involvement of L3 through S1 myotomes bilaterally Impression: Paresthesias involving the feet stable to perhaps some better. EMG shows poly radiculopathy. Would like to MRI her lumbosacral spine to make sure she does not have significant lumbar spinal stenosis that we would need to know about. Anything short of significant mechanical narrowing I think will watchas her EMG shows chronic changes without new denervation. Symptoms seemed to not be limiting. Discussed all these issues with her. Will let her know of the MRI results. TT 32 CT 18 documented in this encounter Plan of Treatment Not on filedocumented as of this encounter Visit Diagnoses Diagnosis Radiculopathy of lumbar region - Primary Thoracic or lumbosacral neuritis or radi culitis, unspecified documented in this encounter Care Teams Event Av Operator Relationship Specialty Start Date End Date Veronica Heredia DO PCP - General Family Practice 03/22/[address] [facility] [place] [address] documented as of this encounter
--- OUTSIDE RECORDS SUMMARY | 2022-08-15 14:51 | XMS_ITS | Encounter Summary ---
:1940 Author Organization [facility] Address [address] [facility] [place] [address] Care Team Providers Name Role Phone FabionilsonVeronica DO Primary Care Provider Encounter Details Date Type Department Care Team Description 06/30/2020 Lab Visit [facility] Essential hypertension; [address] [facility] IGT (impaired glucose tolerance); Drive Hypothyroidism, unspecified type; [place] [address] Benign paroxysmal positional vertigo, unspecified laterality [phone] Social History Tobacco Use Types Packs/Day Years [...] documented as of this encounter Progress Notes Sara Vick RN - 06/30/2020 10:40 AM CDT Ok for pcp. documented in this encounter Plan of Treatment Not on filedocumented as of this encounter Procedures Procedure Name Priority Date/Time Associated Diagnosis Comme nts TSH, SENSITIVE Routine 06/30/2020 10:56 Hypothyroidism, Result s for this AM CDT unspecified type procedure a re in the results section. BASIC METABOLIC Routine 06/30/2020 10:56 Essential Results for this PANEL AM CDT hypertension procedure are i n the results section. COMPLETE BLOOD Routine 06/30/2020 10:56 Benign paroxysmal Resu lts for this COUNT-NO DIFF AM CDT positional vertigo, procedu re are in unspecified the results laterality section. HGB A1C Routine 06/30/2020 10:56 IGT (impaired glucose Re sults for this AM CDT tolerance) procedure are i n the results section. documented in this encounter Results CBC - Complete Blood Count-No Diff (06/30/2020 10:56 AM CDT) P athologist Signature WBC 5.7 3.5 - 10.5 06/30/2020 [facility] x10(9)/L 11:00 AM CDT LABORATORY RBC 4.36 3.90 - 06/30/2020 [facility] 5.03 11:00 AM CDT LABORATORY x10(12)/L Hemoglobin 13.0 12.0 - 06/30/2020 [facility] 15.5 g/dL 11:00 AM CDT LABORATORY HCT 38.6 34.9 - 06/30/2020 [facility] 44.5 % 11:00 AM CDT LABORATORY MCV 88.5 80.0 - 06/30/2020 [facility] 100.0 fL 11:00 AM CDT LABORATORY MCH 29.8 27.6 - 06/30/2020 [facility] 33.3 pg 11:00 AM CDT LABORATORY MCHC 33.7 31.5 - 06/30/2020 [facility] 35.2 g/dL 11:00 AM CDT LABORATORY RDW 12.6 11.9 - 06/30/2020 [facility] 15.5 % 11:00 AM CDT LABORATORY Platelets 193 150 - 450 06/30/2020 [facility] x10(9)/L 11:00 AM CDT LABORATORY Automated NRBC 0 <=0 /100 06/30/2020 [facility] WBC 11:00 AM CDT LABORATORY Specimen Anatomical Collection Method / Collection Time Recei la Time (Source) Location / Volume Laterality Blood Venipuncture / 06/30/2020 10:56 0 Unknown AM CDT 10:56 AM CDT Veronica Heredia DO LAB_1 Performing Organization Address City/State/ZIP Code Phon e Number [facility] [address] [place] [address] [facility] (06/30/2020 10:56 AM CDT) P athologist Signature TSH, Sensitive 0.33 0.30 - 06/30/2020 [facility] 4.50 1:38 PM CDT LABORATORY uIU/mL Specimen Anatomical Collection Method / Collection Time Recei la Time (Source) Location / Volume Laterality Blood Venipuncture / 06/30/2020 10:56 0 Unknown AM CDT 10:56 AM CDT Veronica Heredia DO LAB_1 Performing Organization Address City/State/ZIP Code Phon e Number [facility] [address] [place] [address] (ABNORMAL) Hgb A1C (06/30/2020 10:56 AM CDT) Patholo gist Method Time Signature Hemoglobin A1C 5.8 (H) <=5.6 % 06/30/2020 [facility] 5:49 PM CDT CENTRAL LAB Specimen Anatomical Collection Method / Collection Time Recei la Time (Source) Location / Volume Laterality Blood Venipuncture / 06/30/2020 10:56 0 Unknown AM CDT 10:56 AM CDT Narrative [facility]AL [facility] - 06/30/2020 5:49 PM CDT For patients not previously diagnosed with diabetes: 5.7-6.4%: Increased risk for diabetes 6.5% and greater: Diagnostic for diabete s For patients diagnosed with diabetes: <8.0%: Goal of therapy for ages 18-75 Clinicians may recommend a higher or low er goal for specific individuals. Veronica Heredia DO LAB_1 Performing Organization Address City/State/ZIP Code Phon e Number [facility] C[facility]AL LAB [address] [address] (ABNORMAL) Basic Metabolic Panel (06/30/2020 10:56 AM CDT) Analysis Performed At Patho logist Time Signature Sodium 143 136 - 145 06/30/2020 [facility] mmol/L 1:38 PM CDT LABORATORY Potassium 3.9 3.5 - 5.1 06/30/2020 [facility] mmol/L 1:38 PM CDT LABORATORY Chloride 105 98 - 109 06/30/2020 [facility] mmol/L 1:38 PM CDT LABORATORY CO2 23 20 - 29 06/30/2020 [facility] mmol/L 1:38 PM CDT LABORATORY Anion Gap 15 7 - 16 06/30/2020 [facility] mmol/L 1:38 PM CDT LABORATORY Calcium 9.4 8.4 - 10.4 06/30/2020 [facility] mg/dL 1:38 PM CDT LABORATORY BUN 16 7 - 26 06/30/2020 [facility] mg/dL 1:38 PM CDT LABORATORY Creatinine 0.88 0.55 - 06/30/2020 [facility] 1.02 mg/dL 1:38 PM CDT LABORATORY GFR, Estimated >60 >60 06/30/2020 [facility] mL/min/1.7 1:38 PM CDT LABORATORY 3m2 Glucose 106 (H) 70 - 100 06/30/2020 [facility] mg/dL 1:38 PM CDT LABORATORY Comment: The given reference range is fo r the fasting state. Non-fasting reference range for glucose is 70 - 180 mg/dL. Hours Fasting 5 06/30/2020 1:38 PM CDT [facility] Specimen Anatomical Collection Method / Collection Time Recei la Time (Source) Location / Volume Laterality Blood Venipuncture / 06/30/2020 10:56 0 Unknown AM CDT 10:56 AM CDT Veronica Heredia DO LAB_1 Performing Organization Address City/State/ZIP Code Phon e Number [facility] [address] [place] [address] [facility] [address] [facility] [place] [address], [facility] documented in this encounter Visit Diagnoses Diagnosis Essential hypertension (HRC) Unspecified essential hypertension IGT (impaired glucose tolerance) Impaired glucose tolerance test Hypothyroidism, unspecified type (HRC) Benign paroxysmal positional vertigo, un specified laterality documented in this encounter Care Teams Assembler Brazer Relationship Specialty Start Date End Date Veronica Heredia DO PCP - General Family Practice 03/22/17 [address] [facility] [place] [address] documented as of this encounter
--- OUTSIDE RECORDS SUMMARY | 2022-08-15 14:51 | XMS_ITS | Encounter Summary ---
:1940 [address] [facility] Address [address] [place] [address] Care Team Providers Name Role Phone Veronica Heredia DO Primary Care Provider Reason for Visit Reason Comments Refill levothyroxine (SYNTHROID) 75 MCG tablet [Pharmacy Med Name: LEVOTHYROXINE 75 MCG TABLET] Encounter Details Date Type Department Care Team Description 06/08/2021 Refill [facility] Veronica Heredia, DO Refill (levothyroxine [address] [address] [address] [address] (SYNT HROID) [address] [Pharmacy Med Name: [place] [address] [place], [place] LEVOTHYROXINE 75 MCG [phone] TABLET]) [phone] (Wo rk) Social History Tobacco Use Types [...] encounter Nursing Notes Roseline Montes RN - 06/08/2021 7:58 AM CDT Renewed medication per medication refill protocol. Requested Prescriptions Pending Prescriptions Disp Refills levothyroxine (SYNTHROID) 75 MCG tablet [Pharmacy Med Name: LEVOTHYROXINE 75 MCG TABLET] 90 Tablet 2 Sig: TAKE 1 TABLET BY MOUTH EVERY DAY Interface, Out DepotPoint Prov Query - 06/08/2021 12:32 AM CDT levothyroxine (SYNTHROID) 75 MCG tablet [Pharmacy Med Name: LEVOTHYROXINE 75 MCG TABLET] Medication started: 03/13/2019 Last ordered by VERONICA HEREDIA: 06/30/2020 (343 days ago) QTY: 90, Refills: 3, Sig: take 1 tablet by mouth daily. (changed but equivalent) -> Refill x 9 months, qty: 90, refills: 2 (until due for a(n) TSH check) Last qualifying visit: 05/10/2021 (with VERONICA HEREDIA) Next scheduled visit: None TSH: 0.74 mIU/L on 02/22/2021 Powered by [employer], Reference: [id number], 06/08/2021 12:32:53 AM CDT, Pool: YURY JUAREZ REFILL ([id number]) Interface, Out Surescripts Prov Query - 06/08/2021 12:32 AM CDT The following lab order(s) may be associated with the following Patient Result Comment (Entered by Susan Wallace MD at 03/02/2021 1:52 PM): TSH, SENSITIVE Some of your labs are abnormal and require a follow-up video visit with Dr. Heredia to discuss how toproceed with investigation of these. Please make an appointment with her at your earliest convenience.Susan Wallace MD covering for Dr eHredia documented in this encounter Plan of Treatment Not on filedocumented as of this encounter Visit Diagnoses Diagnosis Essential hypertension (HRC) Unspecified essential hypertension Hypothyroidism, unspecified type (HRC) documented in this encounter Care Teams Chief Pharmacist Relationship Specialty Start Date End Date Veronica Heredia, PCP - General Family Practice 03/22/17 [address] [facility] [address] [place] [address] documented as of this encounter
--- OUTSIDE RECORDS SUMMARY | 2022-08-15 14:51 | XMS_ITS | Encounter Summary ---
:1940 Author Organization [facility] Address [address], [place] [address] Care Team Providers Name Role Phone Veronica Heredia DO Primary Care Provider Reason for Visit Reason Comments LAB RESULTS Encounter Details Date Type Department Care Team Description 02/25/2021 Telephone [facility] Veronica Heredia, DO LAB RESULTS [address] [facility] [address] [facility] [place] [address] [place] [address] [phone] Social History Tobacco Use Types Packs/Day Years [...] documented as of this encounter Nursing Notes Elva Paulino CMA - 02/28/2021 3:39 PM CDT Pt was told about her urine screening and to go in on another day to do another urine sample. Pt understood. Veronica Heredia DO - 02/25/2021 6:04 PM CDT Please call with results, SPEP normal, UPEP with elevated protein level though nonspecific, I would like her to do a urine immunofixation test with a 24 hr urine sample collection. documented in this encounter Plan of Treatment Not on filedocumented as of this encounter Results Immunofixation, 24 Hr Urine (03/02/2021 9:43 AM CDT) Component Value Ref Test Analysis Performed At [facility] gist Range Method Time Signature Urine Volume 1,300 mL 03/04/2021 [facility] 2:12 PM LABORATORY CDT Immunofixati No free light 03/04/2021 [facility] on, Urine, chains are 2:12 PM CENTRAL LAB 24 Hours detected in the CDT urine. Signed Out Replaced by [facility] 03/04/2021 [facility] 2:12 PM CENTRAL LAB Laboratory CDT Specimen Anatomical Collection Method Collection Time Receive d Time (Source) Location / / Volume Laterality Urine Non-blood 03/02/2021 9:43 AM 9:43 Collection / CDT AM CDT Unknown Veronica Heredia DO LAB_1 Performing Organization Address City/State/ZIP Code Phon e Number [facility] NetworksGIL[facility] C[facility]ERSeven [facility] [employer] [facility] CENTRAL LAB [address] [address] [facility] [address] [facility] [place] [address], [facility] documented in this encounter Visit Diagnoses Diagnosis Paresthesia - Primary Disturbance of skin sensation documented in this encounter Care Teams Combatant Swimmer Relationship Specialty Start Date End Date Veronica Heredia DO PCP - General Family Practice 03/22/17 [address] [facility] [place] [address] documented as of this encounter
--- OUTSIDE RECORDS SUMMARY | 2022-08-15 14:51 | XMS_ITS | Encounter Summary ---
:1940 Author Organization [facility] Address [address] [address] Care Team Providers Name Role Phone Veronica Heredia DO Primary Care Provider Reason for Visit Reason Comments Follow-up Encounter Details Date Type Department Care Team Description 05/20/2021 Telephone [facility] Veronica Heredia, Follow-up [id number] [facility] [address] [place] [address] [place] [address] [phone] Social History Tobacco Use Types Packs/Day Years [...] documented as of this encounter Nursing Notes Mikey Garrett - 05/23/2021 2:56 PM CDT Spoke to patient, read message, patient has no questions. Veronica Heredia DO - 05/20/2021 12:44 PM CDT Please call with her EMG result as below, it was abnormal related to radiculopathy or impingement ofher nerves at her lumbar spine (L3-S1) described as below. If she is having any back pain or radiating pain from her back or any numbness or tingling at this time we could pursue physical therapy or meet with a spine physician. She did however express to me when I last saw her that her symptoms were better. If she is asymptomatic then she does not need to pursue any further interventions. 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 This can be seen in context of lumbar spinal stenosis with multiple radiculopathies. B) no electrophysiological evidence for a peripheral neuropathy. documented in this encounter Plan of Treatment Not on filedocumented as of this encounter Visit Diagnoses Not on filedocumented in this encounter Care Teams Senior Engineering Tech Relationship Specialty Start Date End Date Veronica Heredia DO PCP - General Family Practice 03/22/17 [id number] [facility] [place] [id number] documented as of this encounter
--- OUTSIDE RECORDS SUMMARY | 2022-08-15 14:51 | XMS_ITS | Encounter Summary ---
:1940 Author Organization [facility] Address [address] [place] [address] Care Team Providers Name Role Phone RoblesPan collinsaissatou Oliver DO Primary Care Provider Encounter Details Date Type Department Care Team Description 03/02/2021 Lab Visit [facility] Paresthesia [address] [place] [address] Social History Tobacco Use Types [...] Name Priority Date/Time Associated Diagnosis Comme nts IMMUNOFIXATION, 24 Routine 03/02/2021 9:43 AM Paresthesia Res ults for this HR URINE CDT procedure are i n the results section. documented in this encounter Results Immunofixation, 24 Hr Urine (03/02/2021 9:43 AM CDT) Component Value Ref Test Analysis Performed At [facility] Range Method Time Signature Urine Volume 1,300 mL 03/04/2021 [facility] 2:12 PM LABORATORY CDT Immunofixati No free light 03/04/2021 [facility] on, Urine, chains are 2:12 PM [facility] 24 Hours detected in the CDT urine. [facility] By [facility] 2:12 PM [facility] Laboratory CDT Specimen Anatomical Collection Method Collection Time Receive d Time (Source) Location / / Volume Laterality Urine Non-blood 03/02/2021 9:43 AM 9:43 Collection / CDT AM CDT Unknown Veronica Heredia DO LAB_1 Performing Organization Address City/State/ZIP Code Phon e Number [facility] [address] [address] [facility] [address] [facility] [place] [phone], [facility] documented in this encounter Visit Diagnoses Diagnosis Paresthesia Disturbance of skin sensation documented in this encounter Care Teams Race Relations Adviser Relationship Specialty Start Date End Date Veornica Heredia DO PCP - General Family Practice 03/22/17 [address] [facility] [place] [address] documented as of this encounter
--- OUTSIDE RECORDS SUMMARY | 2022-08-15 14:51 | XMS_ITS | Encounter Summary ---
:1940 Author Organization [facility] Address [address] [place] [address] Care Team Providers Name Role Phone Veronica Heredia DO Primary Care Provider Reason for Referral Procedure/Equipment (Routine) - Closed Specialty Diagnoses / Procedures Referred By Contact Refer red To Contact Diagnoses Paresthesia Veronica Heredia DO Procedures NEURO--EMG ELECTRICAL NERVE CONDUCTION STUDY [id number] [facility] [place] [address] Referral ID Status Reason Start Date Expiration Date Visits Requ ested Visits Authorized [id number] Closed 02/22/2021 05/24/2022 1 1 Reason for Visit Reason Comments LEG PAIN Lower leg and foot pain-most ly at night Encounter Details Date Type Department Care Team Description 02/22/2021 Office Visit Sawyer Hernandez Veronica Heredia, Yazmin mendenhall (Primary Dx); Medicine DO Leg pain, bilateral; [id number] [facility] [address] [facility] Hypot hyroidism, unspecified type; [address] [facility] Prediabetes; [place] [address] [place] Essential hypertension [phone] [id number] Social History Tobacco Use Types Packs/Day Years [...] Sign Reading Time Taken Comments Blood Pressure 125/79 02/22/2021 1:29 PM CDT Pulse 72 02/22/2021 1:29 PM CDT Temperature - - Respiratory Rate - - Oxygen Saturation 95% 02/22/2021 1:04 PM CDT Inhaled Oxygen Concentration - - Weight 87.3 kg (192 lb 9 oz) 02/22/2021 1:04 PM CDT Height 162.6 cm (5' 4) 02/22/2021 1:04 PM CDT Body Mass Index 33.05 02/22/2021 1:04 PM CDT documented in this encounter Patient Instructions Patient InstructionsSarah Sparks RMA - 02/22/2021 1:00 PM CDT Healthy Weight Matters Understanding body mass index Your BMI is on your After Visit Summary under ???Today???s Visit.?? You can also find a BMI calculator on the National [place] [employer] website at www.nhlbi.nih.gov/health/educational/lose_wt/BMI/bmicalc.htm. BMI ranges for adults BMI BMI categories Below 18.5 Underweight 18.5 to 24.9 Normal weight 25.0 to 29.9 Overweight 30.0 and above Obese If you are overweight or have obesity, your risk increases for developing health problems, such as type 2 diabetes, heart disease, high blood pressure and stroke. Your BMI measurement alone cannot predict your health risk. But if you know your BMI is high, you can take steps to set healthy goals and improve your overall well-being. What can I do to improve my BMI? Losing weight is an important way to reduce your BMI and improve your overall health and well- being. Start small. Aim to lose a few pounds to begin rather than worry about your ideal weight. Here are some tips: + Be physically active. Do activities that you enjoy, give you energy and are safe for you to do.Gradually build up the intensity (how hard your body is working) of activity. Long-term, aim for 30 minutes or more of activity most days of the week. Remember to check with your doctor before starting anyphysical activity program. + Eat real (not processed) food. Eat mostly vegetables, fruit, whole grains and lean proteins. That way, you--not food manufacturers--control the ingredients that go into your meals. + Aim for 5 servings of fruits and vegetables a day. Choose a variety of vegetables with different colors. Have fresh fruit for dessert. Limit deep-fried vegetables, such as greek fries. + Choose lean protein, such as chicken or fish. Try non-meat sources of protein such as beans, soy and other legumes. + Choose whole grains. Whole grain foods, such as whole-wheat bread, brown rice, barley, quinoa and oatmeal, contain the entire grain kernel and are better for your health. Limit refined grains, such as white bread and rice. + Satisfy hunger with unsaturated fat. Fat helps you feel satisfied. Choose unsaturated fats, such as canola or olive oils, nuts and seeds, oil-based dressings and avocados. Limit saturated fats, whichare found in animal products and some plant oils, such as coconut and palm oils. + Pay attention to portion sizes. Use smaller plates, bowls and glasses. Portion out foods before you eat. + Drink water or unsweetened beverages. Avoid soda, sweetened coffees and teas, energy drinks and sports drinks, which are full of added sugar that your body does not need. Water is always the best option. + Eat mindfully. Take time to fully enjoy your food and pay attention to what you are eating. Make meals last 15 to 30 minutes. This gives your body a chance to become satisfied and tell your brain to stop eating. Pay attention to what you are eating, rather than doing other activities such as watching TV or driving. This helps you pay attention to your body???s signals of hunger and fullness. + Share meals when eating at restaurants, or put half of the entr??e in a to-go container before youstart eating. Nutrition Services One-on-one visits with a registered dietitian are available at various clinic locations to help you develop a personalized plan for managing your weight. We also offer classes led by dietitians on a variety of topics. To schedule an appointment, find the clinic that works best for you. + For [facility], call [phone]. + For [facility], call [phone]. + For [facility], call [phone]. + For [facility] and [facility], call [phone]. + For [facility], call [phone]. [phone] (03/2019) ??[facility] documented in this encounter Progress Notes Veronica Heredia, - 02/22/2021 1:00 PM CDT CHIEF COMPLAINT: Chief Complaint Patient presents with ??? LEG PAIN Lower leg and foot pain-mostly at night SUBJECTIVE: This is a 80 y.o. female patient who presents bilateral distal lower extremity and foot odd sensation like an ache/numbness that occurs primarily at night when she is not active. When she is busy during the day she does not notice it. Can walk without any discomfort, walks daily and tolerates this well without LE or chest symptoms. No cramping in her lower extremities. No pins and needles/tingling orsharp discomforts. She is not taking anything for pain. She notes occasional increase in swelling which is minimal better if she lies down or elevates her feet, not currently bothering her present for the past couple of weeks. Denies abdominal/pelvic pain or fullness. No chest pain or difficulty breathing. Denies palpitations. She can lie flat to sleep without SOB. No lower extremity edema currently.No radiating pain from her back. No other neurologic symptoms present. No falls. No injuries. H/o endometrial cancer, planned f/u per tribal delegate q6mo for 5 years. History of hypothyroidism and prediabetes. Denies risk for HIV/STIs, declines screening for this. ETOH rare. No dietary restrictions. PAST MEDICAL HISTORY: Patient Active Problem List Diagnosis ??? Essential hypertension (HRC) ??? Hyperlipidemia (HRC) ??? Esophageal reflux ??? Calculus of kidney ??? Endometrial cancer (HRC) MEDICATIONS: Current Outpatient Medications Medication Sig Dispense Refill ??? acetaminophen (TYLENOL) 325 MG tablet Take 325-650 mg by mouth every 4 hours as needed for Pain. ??? cholecalciferol (VITAMIN D3) 1000 units tablet Take 1,000 Units by mouth daily. ??? levothyroxine (SYNTHROID) 75 MCG tablet Take 1 Tablet by mouth daily. 90 Tablet 3 ??? Losartan Potassium-HCTZ (HYZAAR) 100-12.5 MG tablet Take 1 Tablet by mouth daily. 90 Tablet 3 ??? metoprolol succinate (TOPROL XL) 25 MG 24 hour release tablet Take 1 Tab by mouth daily. Take with Toprol XL 50 mg tab to equal 75 mg. 90 Tablet 3 ??? metoprolol succinate (TOPROL XL) 50 MG 24 hour release tablet Take 1 Tablet by mouth daily. 90 Tablet 3 ??? simvastatin (ZOCOR) 20 MG tablet Take 1 Tablet by mouth daily. 90 Tablet 3 No current facility-administered medications for this visit. ALLERGIES: Allergies Allergen Reactions ??? Contrast [Iodinated Diagnostic Agents] Anaphylaxis ??? Penicillins Hives ??? Sulfa Antibiotics Hives OBJECTIVE: Vital Signs: BP 125/79 (BP Location: Left Arm, BP Cuff Size: Regular) Pulse 72 Ht 5' 4 (1.626 m) Wt 192 lb 9 oz (87.3 kg) SpO2 95% BMI 33.05 kg/m?? Gen.: Alert, cooperative in no acute distress. Head: Normocephalic, atraumatic. Eyes: No scleral icterus or conjunctivitis present. PERRLA. Nose: Patent, without deformity. Throat: Moist mucous membranes without lesions, erythema, or exudate. Neck: Supple, without masses, lymphadenopathy or tenderness. No jugular venous distention. Respiratory: Normal respiratory rate and effort. Lungs are clear to auscultation with good breath sounds bilaterally. No wheeze or crackle. Heart: RRR without murmurs, rubs, or gallops. Abdomen: The abdomen was soft, nondistended and nontender. No obvious masses or organomegaly. No hepatojugular reflex. Psych: No evidence of overt anxiety or depression. Extremities: No cyanosis, clubbing or edema. Calves nontender bilaterally. Few non-tender, non-indurated varicosities of her bilateral lower extremities without discoloration warmth/erythema. Pedal pulses bilaterally 2/4. Musculoskeletal: Normal tone. Low back nontender. Skin: No pallor. No jaundice. No discoloration of her lower extremities. Neurologic: Alert, oriented, CN 2-12 grossly intact, normal coordinated movements, normal strength lower extremities bilaterally, normal sensation to light touch for lower extremities bilaterally, and she does express that there is heightened sensation to light touch of her feet bilaterally, monofilament 10/10, however she says it is very faint on both feet. Normal gait. ASSESSMENT/PLAN: ICD-10-CM 1. Paresthesia R20.2 Vitamin B-12 CBC - Complete Blood Count-No Diff TSH Anti-Nuclear Antibody Titer by Immunofluorescent Antibody (IFA) and Pattern ESR - Sedimentation Rate Electrophoresis [place] To NORA,Serum ELP - Electrophoresis Protein, Random Urine NEURO--EMG ELECTRICAL NERVE CONDUCTION STUDY 2. Leg pain, bilateral M79.604 M79.605 3. Hypothyroidism, unspecified type (HRC) E03.9 TSH 4. Prediabetes R73.03 Hemoglobin A1C Glycosylated 5. Essential hypertension (HRC) I10 Basic Metabolic Panel 1. Dysesthesia to light touch and numb discomfort likely due to peripheral polyneuropathy, risks including hypothyroidism and prediabetes discussed with the patient, labs as above for monitoring and evaluation, and an EMG to confirm, gabapentin for discomfort offered, she states that it is only mildlybothersome at night and she does not want a medications for this yet but will let me know if this changes, topicals such as capsaicin and lidocaine are also an option. 2. No current lower extremity swelling, multiple varicosities which appear to be asymptomatic at this time, intermittent mild lower extremity swelling with standing which improves with elevation and lying down without any other symptoms associated and normal exercise tolerance, likely due to venous insufficiency discussed diagnostic testing and treatment for this which she is not interested in at this time. 3. RTC to f/u on results and if not improving or worsening and q6mo for chronic condition management. This was dictated using a voice recognition program, typographical and sound like errors may occur. documented in this encounter Plan of Treatment Not on filedocumented as of this encounter Results (ABNORMAL) ELP - Electrophoresis Protein, Random Urine (02/22/2021 2:12 PM CDT) [facility] Method Time Signature Total Protein, 29 (H) 0 - 14 02/25/2021 [facility] Urine mg/dL 2:07 PM CDT C[facility]TRAL LAB Albumin, Urine 93.9 % 02/25/2021 [facility] 2:07 PM CDT CENTRAL LAB Alpha 1, Urine 0.0 % 02/25/2021 [facility] 2:07 PM CDT CENTRAL LAB Alpha 2, Urine 0.3 % 02/25/2021 [facility] 2:07 PM CDT CENTRAL LAB Beta, Urine 5.8 % 02/25/2021 [facility] 2:07 PM CDT CENTRAL LAB Gamma, Urine 0.0 % 02/25/2021 [facility] 2:07 PM CDT CENTRAL LAB Monoclonal 02/25/2021 [facility] Mark 2:07 PM CDT CENTRAL LAB Comment: See Interpretation Interpretation Urine protein electrophoresi s shows a non-selective proteinuria pattern. 02/25/2021 2:07 PM [facility] The presence of a monoclonal protein cannot be entirely excluded. Suggest follow-up with urine immunofixation, if clinically indicated. CDT LAB 24 hour or first morning uri ne collections have higher probabilities of detecting abnormalities. Signed Out By [facility] 02/25/2021 2:07 PM [facility] Laboratory CDT LAB Specimen Anatomical Collection Method Collection Time Receive d Time (Source) Location / / Volume Laterality Urine Non-blood 02/22/2021 2:12 PM 2:12 Collection / CDT PM CDT Unknown Veronica Heredia DO LAB_1 Performing Organization Address City/State/ZIP Code Phon e Number [facility] [address] [id number] Electrophoresis [place] To NORA,Serum (02/22/2021 2:07 PM CDT) Component Value Ref Test Analysis Performed At [facility] Range Method Time Signature Total Protein 7.2 6.4 - 02/23/2021 [facility] 8.3 12:06 PM CENTRAL LAB g/dL CDT Albumin 4.5 3.4 - 02/23/2021 [facility] 4.8 12:06 PM [facility] g/dL CDT Alpha 1 0.3 0.2 - [facility] 0.[facility] 12:06 [facility] g/dL CDT Alpha 2 0.7 0.5 - 02/23/2021 [facility] 1.1 12:06 PM [facility] g/dL CDT Beta 0.7 0.6 - [facility] 12:06 PM [facility] g/dL CDT Gamma 0.9 0.7 - 02/23/2021 [facility] 1.6 12:06 PM [facility] g/dL CDT Monoclonal Mark 0.0 <=0.0 02/23/20[facility] g/dL 12:06 PM [facility] CDT Interpretation No monoclonal 02/23/2021 [facility] protein is 12:06 PM [facility] detected in the CDT serum. Additional Not indicated. 02/23/20[facility] 12:06 PM [facility] CDT Signed Out By [facility] 02/23/2021 [facility] 12:06 PM [facility] Laboratory CDT Specimen Anatomical Collection Method / Collection Time Recei la Time (Source) Location / Volume Laterality Blood Venipuncture / 02/22/2021 2:07 02/22/2021 2:08 Unknown PM CDT PM CDT Veronica Heredia DO LAB_1 Performing Organization Address [facility] Phon e Number [facility] [address] [address] Hemoglobin A1C Glycosylated (02/22/2021 2:04 PM CDT) [facility] Method Time Signature Hemoglobin A1C 5.6 <=5.6 % 02/22/2021 [facility] 8:31 PM CDT CENTRAL LAB Specimen Anatomical Collection Method / Collection Time Recei la Time (Source) Location / Volume Laterality Blood Venipuncture / 02/22/2021 2:04 02/22/2021 2:08 Unknown PM CDT PM CDT Veronica Heredia DO LAB_1 Performing Organization Address [facility] Phon e Number [facility] [address] [address] (ABNORMAL) Basic Metabolic Panel (02/22/2021 2:03 PM CDT) [facility] Method Time Signature Sodium 141 136 - 145 02/22/2021 [facility] mmol/L 6:25 PM CDT LABORATORY Potassium 4.1 3.5 - 5.1 02/22/2021 [facility] mmol/L 6:25 PM CDT LABORATORY Chloride 101 98 - 109 02/22/2021 [facility] mmol/L 6:25 PM CDT LABORATORY CO2 28 20 - 29 02/22/2021 [facility] mmol/L 6:25 PM CDT LABORATORY Anion Gap 12 7 - 16 02/22/2021 [facility] mmol/L 6:25 PM CDT LABORATORY Calcium 9.8 8.4 - 10.4 02/22/2021 [facility] mg/dL 6:25 PM CDT LABORATORY BUN 23 7 - 26 02/22/2021 [facility] mg/dL 6:25 PM CDT LABORATORY Creatinine 1.09 (H) 0.55 - 02/22/2021 [facility] 1.02 mg/dL 6:25 PM CDT LABORATORY GFR, Estimated 49 (L) >60 02/22/2021 [facility] mL/min/1.7 6:25 PM CDT LABORATORY 3m2 Glucose 98 70 - 100 02/22/2021 [facility] mg/dL 6:25 PM CDT LABORATORY Comment: The given reference range is fo r the fasting state. Non-fasting reference range for glucose is 70 - 180 mg/dL. Hours Fasting 2 02/22/2021 6:25 PM CDT [facility] Specimen Anatomical Collection Method / Collection Time Recei la Time (Source) Location / Volume Laterality Blood Venipuncture / 02/22/2021 2:03 02/22/2021 2:08 Unknown PM CDT PM CDT Narrative [facility] - 02/22/2021 6:25 P M CDT The National Kidney Disease Education Pr ogram suggests measuring Cystatin C in patients with eGFRcrea of 45 to 59 ml/mi n/1.73^2 who do not have other markers of kidney damage (i.e. elevated urine Album in/Creatinine Ratio or a prior Cystatin C confirming the presence of chronic kidne y disease). Veronica M Lammie DO LAB_1 Performing Organization Address [facility] Phon e Number [facility] [address] [place] [address] [facility] [address] [place] [address], [facility] [place] ESR - Sedimentation Rate (02/22/2021 2:03 PM CDT) [facility] gist Method Time Signature Sedimentation Rate 7 0 - 20 02/22/2021 [facility] mm/hr 3:06 PM CDT LABORATORY Specimen Anatomical Collection Method / Collection Time Recei la Time (Source) Location / Volume Laterality Blood Venipuncture / 02/22/2021 2:03 02/22/2021 2:08 Unknown PM CDT PM CDT Veronica Heredia DO LAB_1 Performing Organization Address [facility] Phon e Number [facility] [address] [place] [address] Cent (ABNORMAL) Anti-Nuclear Antibody Titer by Immunofluorescent Antibody (IFA) and Pattern (02/22/2021 2:03 PM CDT) athologist Signature FLORINDA Titer 1:320 (A) <1:80 02/23/2021 [facility] 10:22 AM CDT LABORATORY FLORINDA Pattern Speckled 02/23/2021 [facility] 10:22 AM CDT LABORATORY Comment: This is a test that requires in terpretation by your provider and does not necessarily indicate that you have a spe cific disease. FLORINDA Interpretation Positive (A) Negative 02/23/2021 10:2 2 AM [facility] CDT Specimen Anatomical Collection Method / Collection Time Recei la Time (Source) Location / Volume Laterality Blood Venipuncture / 02/22/2021 2:03 02/22/2021 2:08 Unknown PM CDT PM CDT Veronica Heredia LAB_1 Performing Organization Address [facility] Phon e Number [facility] [address] [place] [address] TSH (02/22/2021 2:03 PM CDT) athologist [facility] TSH, Sensitive 0.74 0.30 - 02/22/2021 [facility] 4.50 6:51 PM CDT LABORATORY uIU/mL Specimen Anatomical Collection Method / Collection Time Recei la Time (Source) Location / Volume Laterality Blood Venipuncture / 02/22/2021 2:03 02/22/2021 2:08 Unknown PM CDT PM CDT Veronica Heredia LAB_1 Performing Organization Address City/State/ZIP Code Phon e Number [facility] [address] [place] [address] CBC - Complete Blood Count-No Diff (02/22/2021 2:03 PM CDT) P athologist Signature WBC 6.7 3.5 - 10.5 02/22/2021 [facility] x10(9)/L 2:21 PM CDT LABORATORY RBC 4.56 3.90 - 02/22/2021 [facility] 5.03 2:21 PM CDT LABORATORY x10(12)/L Hemoglobin 13.5 12.0 - 02/22/2021 [facility] 15.5 g/dL 2:21 PM CDT LABORATORY HCT 41.4 34.9 - 02/22/2021 [facility] 44.5 % 2:21 PM CDT LABORATORY MCV 90.8 80.0 - 02/22/2021 [facility] 100.0 fL 2:21 PM CDT LABORATORY MCH 29.6 27.6 - 02/22/2021 [facility] 33.3 pg 2:21 PM CDT LABORATORY MCHC 32.6 31.5 - 02/22/2021 [facility] 35.2 g/dL 2:21 PM CDT LABORATORY RDW 12.9 11.9 - 02/22/2021 [facility] 15.5 % 2:21 PM CDT LABORATORY Platelets 193 150 - 450 02/22/2021 [facility] x10(9)/L 2:21 PM CDT LABORATORY Automated NRBC 0 <=0 /100 02/22/2021 [facility] WBC 2:21 PM CDT LABORATORY Specimen Anatomical Collection Method / Collection Time Recei la Time (Source) Location / Volume Laterality Blood Venipuncture / 02/22/2021 2:03 02/22/2021 2:08 Unknown PM CDT PM CDT Veronica Heredia DO LAB_1 Performing Organization Address City/State/ZIP Code Phon e Number [facility] [address] [facility] [place] [address] Cente Vitamin B-12 (02/22/2021 2:03 PM CDT) athologist Signature Vitamin B12 279 213 - 816 02/22/2021 [facility] pg/mL 6:51 PM CDT LABORATORY Specimen Anatomical Collection Method / Collection Time Recei la Time (Source) Location / Volume Laterality Blood Venipuncture / 02/22/2021 2:03 02/22/2021 2:08 Unknown PM CDT PM CDT Veronica Heredia DO LAB_1 Performing Organization Address City/[facility]/ZIP Code Phon e Number [facility] [address] [place] [address] documented in this encounter Visit Diagnoses Diagnosis Paresthesia - Primary Disturbance of skin sensation Leg pain, bilateral Pain in limb Hypothyroidism, unspecified type (HRC) Prediabetes Other abnormal glucose Essential hypertension (HRC) Unspecified essential hypertension documented in this encounter Care Teams Electrician Wiring Relationship Specialty Start Date End Date Veronica Heredia DO PCP - General Family Practice 03/22/17 [address] [facility] C[address] [place] [address] documented as of this encounter
--- OUTSIDE RECORDS SUMMARY | 2022-08-15 14:51 | XMS_ITS | Encounter Summary ---
:1940 Author Organization [employer] Address [address] [place] [address] Care Team Providers Name Role Phone Veronica Heredia DO Primary Care Provider Reason for Visit Reason Comments Vestibular Therapies (Routine) - Closed Specialty Diagnoses / Procedures Referred By Contact Refer red To Contact Diagnoses Benign paroxysmal positional [place]igo, [place] [address] [facility] r [place] [address] Referral ID Status Reason Start Date Expiration Date Visits Requ ested Visits Authorized [id number] Closed 06/30/2020 08/29/2020 1 1 Encounter Details Date Type Department Care Team Description 07/02/2020 Office Visit Lionel Henry, Dionna rees paroxysmal positional vertigo of right ear (Primary Dx); Therapy PT Benign paroxysmal positional vertigo of left ear [id number] [facility] [address] [facility] [place] [address] [place] [phone] Social History Tobacco Use Types Packs/Day Years [...] as of this encounter Progress Notes Lionel Montero, PT - 07/02/2020 9:45 AM CDT [facility] - Vestibular Evaluation/Plan of Care Initial Certification Period: 07/02/2020 to 08/01/2020 Referring Provider: Veronica Heredia Visit Diagnosis: 1. Benign paroxysmal positional vertigo of right ear 2. Benign paroxysmal positional vertigo of left ear Precautions: HTN, history of cancer Orders: Evaluate and treat, Vestibular rehab Onset/Referral Date: 06/30/20 SUBJECTIVE Reason for Visit: Patient presents to PT with complaints of vertigo. She reports having symptoms about a year ago that seemed to resolve but about a few months ago. She has noticed a sense of lightheadedness and unsteadiness when she would get up and walk to the bathroom. Her symptoms didn't start immediately but shortly after she had started walking. Symptoms would last a matter of seconds and resolve if she didn't move. She denies room spinning. She acknowledges some increased stress recently. Sherly has not had any symptoms for the past couple of weeks. History of Falls: None Patient Therapy Goals: eliminate dizziness Past Medical History: Patient has a current medication list which includes the following prescription(s): acetaminophen, cholecalciferol, levothyroxine, losartan potassium-hctz, metoprolol succinate, metoprolol succinate, and simvastatin. Patient has a past medical history of Aspirin long-term use (04/16/2015), Calculus of kidney right side diagnosed CT scan in [place] asymptomatic (04/18/2016), Endometrial cancer (HRC) (05/02/2018), H/O colonoscopy 2007 due 2017 (04/16/2015), Hyperlipidemia (07/12/2005), Hypertension (04/11/2003), Obesity (HRC) (04/30/2006), Postmenopausal (04/16/2015), and Zoster. She also has no past medical history of Breast cyst, Colon cancer (HRC), or Diffuse cystic mastopathy. Recently Experienced (Red Flags): Dizziness and Loss of balance Previous Treatment: None Benefited from previous treatment: not applicable Pain Details: None Symptoms: blurred vision, disequilibrium (unsteady) and lightheaded Ear Symptoms: none Increases Symptoms: rolling and quick head turns (but no symptoms recently) Decreases Symptoms: pause until symptoms pass Work/Leisure/Sport: Retired. Patient History: Moderate Complexity: 1-2 personal factors and/or comorbidities that impact plan of care: Anxiety with repositioning maneuver. OBJECTIVE General: Mood, orientation and behavior were appropriate. Patient was alert and oriented. Oculomotor examination: Spontaneous Nystagmus: Normal Smooth Pursuit Eye Movement: unable to follow smoothly Saccadic Eye Movement: normal HINTS: (3/3 positive; + LR 6.19) Negative Head Impulse/Thrust Test: normal Gaze Holding Nystagmus: Normal Test of Skew: Normal Vestibular ocular reflex (VOR) Cancellation: normal Vestibular ocular reflex (VOR) Observed: normal Static and Dynamic Visual Acuity (at 2 hz. 3 lines or more = positive): Not tested Cervical Artery Screen: Hypertension YES, controlled Recent Trauma NO Acute onset of pain (unlike any other) NO Vertebral Artery Test: Negative CROM: CROM: Extension: 75% limited Rotation left: 50% limited Rotation right: 50% limited Balance: Not tested Test Performed with Fixation Blocked: Spontaneous Nystagmus: Normal Gaze holding Nystagmus: Normal Head shaking Nystagmus (3-4 hz x 10 seconds, head tilt >30 degrees, >3 beats = positive): Normal Positional Tests: Test performed with fixation blocked (frenzel goggles on): Right hallpike: positive for dizziness and positive nystagmus: latency of nystagmus - 5 seconds, direction of nystagmus - right torsion, up beating, duration of nystagmus - 25 seconds Left hallpike: Not tested Right roll test: negative for dizziness and negative nystagmus Left roll test: positive for dizziness and positive nystagmus: latency of nystagmus - 2 seconds, direction of nystagmus - left torsion, up beating, duration of nystagmus - 10 seconds Dynamic Balance and Gait Tests: Not tested PT - Vestibular Dizziness Handicap Inventroy (DHI) (0-100, 0 being best): 14 Clinical Examination: Low complexity: Addressed 1-2 elements from body structures and functions (see above), and/or functional limitations as noted below. Today's Intervention: Physical Therapy Evaluation was completed and the patient was educated on the condition, planned therapy intervention and expectations from treatment. Canalith repositioning procedure: -Agnieszka maneuver to the right x 2 treatment cycles. Patient experienced dizziness and nystagmus in the first two positions. First position produced right torsional nystagmus, second position produced left torsional nystagmus. -educated on condition; handout of BPPV provided. Timed Code Treatment Minutes: 0 Total Treatment Minutes: 50 ASSESSMENT Therapist Impression/Summary: Patient presents with signs and symptoms consistent with possible bilateral BPPV. Right Hallpike test was positive for signs of posterior canalithiasis. Interestingly, shehad a left torsional up beating nystagmus in the second treatment position during right Agnieszka maneuver. She also had a left torsional nystagmus during left roll test. Her left Hallpike was not tested today because we immediately treated right canal dysfunction. Offered to give patient instructions to self treat left canal but is apprehensive about self treatment. It may be helpful to get her back into PT sooner than later to treat the left canal, she opted to schedule again on 07/05.Feel that PT may be helpful for vestibular rehab to resolve canal dysfunction and restore function. PT Clinical Presentation: Moderate Complexity: Evolving Clinical Presentation with changing clinical characteristics Clinical Decision Making: Low Complexity Significant Impairments: Vertigo Functional Limitations: difficulty with rolling. Goals/Functional Outcomes: Patient will no longer have dizziness with rolling in bed in 2-4 week(s). Patient will be independent with home exercise program in 2-4 week(s). Remove debris from semicircular canals to alleviate symptoms of vertigo with functional movements in2-4 week(s). Barriers to Goal Achievement or Learning: other: mild treatment anxiety with canalith repositioning Prognosis: Good PLAN Planned Intervention/Education: ADL/Self Management, Canalith repositioning procedure, Education, Neuromuscular Re-education, Therapeutic Activities Frequency: 1-2x/week Duration: 30 days Discharge Plan: Patient will be discharged from therapy when goals are achieved or patient plateaus in progress. Informed Consent: Patient and/or family in agreement with the care plan. Plan for Next Treatment: Left Hallpike test and treat accordingly. Therapist: Angel Montero, PT, DPT, CSCS, CIMT, [phone] The four h club agent is completed by the therapist and the referring clinician's electronic signature certifies medical necessity for the plan above. documented in this encounter Plan of Treatment Scheduled Referrals Name Type Priority Associated Diagnoses Order S chedule Physical Therapy Referral Routine Benign paroxysmal positi onal Ordered: 06/30/2020 vertigo, unspecified laterality documented as of this encounter Visit Diagnoses Diagnosis Benign paroxysmal positional vertigo of right ear - Primary Benign paroxysmal positional vertigo of left ear documented in this encounter Care Teams Retail Sales Associate Bilingual Relationship Specialty Start Date End Date Veronica Heredia DO PCP - General Family Practice 03/22/17 [address] [facility] [place] [address] documented as of this encounter
--- OUTSIDE RECORDS SUMMARY | 2022-08-15 14:51 | XMS_ITS | Encounter Summary ---
:1940 Author Organization [facility] Address [address] [place] [address] Care Team Providers Name Role Phone Veronica Heredia DO Primary Care Provider Reason for Visit Procedure/Equipment (Routine) - Closed Specialty Diagnoses / Procedures Referred By Contact Refer red To Contact Diagnoses Paresthesia Veronica Heredia, DO Procedures NEURO--EMG ELECTRICAL NERVE CONDUCTION STUDY [address] [facility] [place] [address] Referral ID Status Reason Start Date Expiration Date Visits Requ ested Visits Authorized [id number] Closed 02/22/2021 05/24/2022 1 1 Encounter Details Date Type Department Care Team Description 05/19/2021 Procedure Visit [facility] 3931 Brendon Vieyra MD Neurophysiology EEG/ EMG [address] [facility] [address] [place] [address] [phone] (Wo rk) Social History Tobacco Use Types [...] documented as of this encounter Progress Notes Gisela Vieyra MD - 05/19/2021 8:00 AM CDT Images from the original note were not included. [facility] Department [facility] Neurology Electrodiagnostic Laboratory Nerve Conduction & EMG Report Full Name: Michele Angulo Gender: Female Date of : 1940 Visit Date: 05/19/2021 07:41 Age: 80 Years Examining Physician: Gisela Vieyra Referring Physician: Veronica Heredia Reason for Exam: Patient reports altered sensation tightness in the feet and calves. Does not reportclaudication or radicular-type symptoms. Query : Peripheral neuropathy, radiculopathy SNC Nerve / Sites Rec. Site Onset Lat Peak Lat RADIO INTERFERENCE INVESTIGATOR Amp PP Amp Segments Distance Velocity ms ms ??V ??V mm m/s R Sural - Ankle (Calf) Calf Ankle 3.0 4.0 8.1 7.8 Calf - Ankle 140 46 MNC Nerve / Sites Muscle Latency Amplitude Rel Amp Duration Segments Distance Lat Diff Velocity ms mV % ms mm ms m/s R Peroneal - EDB Ankle EDB 4.5 5.8 100 6.4 Ankle - EDB 80 Fib head EDB 10.7 5.2 90.4 7.4 Fib head - Ankle 300 6.2 48 R Tibial - AH Ankle AH 4.7 3.2 100 5.0 Ankle - AH 80 Pop fossa AH 12.3 1.9 58.1 7.6 Pop fossa - Ankle 380 7.6 50 F Wave Nerve F Lat M Lat F-M Lat Min F Lat Min M Lat Min F-M ms ms ms ms ms ms R Tibial - AH 48.6 8.3 40.4 28.2 8.3 14.7 EMG Summary Table . Spontaneous Activity Voluntary MUAPs Polyphasic Comment Muscle Exam Ins. Act. Fibs Fasc Rec. Decr. Recr. Incr. Ampl. High Ampl. Low Dur. Long Dur. Short Polyphasic Comment R. Tibialis anterior - Nl 0 0 + - ++ - ++ - - - R. Gastrocnemius (Medial head) - Nl 0 0 +/- - + - + - - - R. Rectus femoris - Nl 0 0 - - + - + - - - R. Gluteus medius - Nl 0 0 + - ++ - ++ - - - R. Gluteus angela - Nl 0 0 - - + - + - - Poor Act. L. Tibialis anterior - Nl 0 0 + - ++ - ++ - - - L. Gastrocnemius (Medial head) - Nl 0 0 + - ++ - ++ - - - L. Rectus femoris - Nl 0 0 +/- - + - + - - - Summary All nerve conductions in right lower extremity are normal. Needle examination of right lower extremity muscles shows chronic reinnervation in right L3-S1 dermatomes, with L5 dermatome being the most affected. Similar abnormalities in left lower extremity. 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 This can be seen in context of lumbar spinal stenosis with multiple radiculopathies. B) no electrophysiological evidence for a peripheral neuropathy. Gisela Vieyra MD Methods: Limb temperature was monitored continuously during the NCS and repetitive stimulation. Handtemperature was maintained between 30??C and 36??C. NCS: 5 mm tin disc, Ulnar Nerve.: Elbow. Flexed,Concentric Needle Electrode. File: [id number] documented in this encounter Plan of Treatment Not on filedocumented as of this encounter Visit Diagnoses Diagnosis Radiculopathy of lumbar region - Primary Thoracic or lumbosacral neuritis or radi culitis, unspecified Paresthesia Disturbance of skin sensation documented in this encounter Care Teams Human Resources Trainer Relationship Specialty Start Date End Date Veronica Heredia DO PCP - General Family Practice 03/22/17 [address] [facility] [address] [place], [place] [address] documented as of this encounter
--- OUTSIDE RECORDS SUMMARY | 2022-08-15 14:51 | XMS_ITS | Encounter Summary ---
:1940 Author Organization [facility] Address [address] [place] [address] Care Team Providers Name Role Phone RobleskarinaVeronica DO Primary Care Provider Encounter Details Date Type Department Care Team Description 07/14/2021 Lab Visit [facility] Vitamin B12 deficiency; [address] [facility] Pre operative examination; [place] [address] Social History Tobacco Use Types [...] encounter Progress Notes Sara Vick RN - 07/14/2021 8:20 AM CDT Ok for pcp. documented in this encounter Plan of Treatment Not on filedocumented as of this encounter Procedures Procedure Name Priority Date/Time Associated Diagnosis Comme nts VITAMIN B12 ONLY Routine 07/14/2021 8:09 AM Vitamin B12 defici ency Results for this CDT procedure are i n the results section. POTASSIUM Routine 07/14/2021 8:09 AM Preoperative Results f or this CDT examination procedure are in Essential hypertension the r esults section. documented in this encounter Results Potassium (07/14/2021 8:09 AM CDT) athologist Signature Potassium 4.0 3.5 - 5.1 07/14/2021 [facility] mmol/L 1:09 PM CDT LABORATORY Specimen Anatomical Collection Method / Collection Time Recei la Time (Source) Location / Volume Laterality Blood Venipuncture / 07/14/2021 8:09 07/14/2021 8:09 Unknown AM CDT AM CDT Kev Palmer Ishaan DO LAB_1 Performing Organization Address City/[facility]/ZIP [facility] Phon e Number [facility] [address] [place] [address] (ABNORMAL) Vitamin B-12 (07/14/2021 8:09 AM CDT) athologist Signature Vitamin B12 1,084 (H) 213 - 816 07/14/2021 [facility] pg/mL 1:40 PM CDT LABORATORY Specimen Anatomical Collection Method / Collection Time Recei la Time (Source) Location / Volume Laterality Blood Venipuncture / 07/14/2021 8:09 07/14/2021 8:09 Unknown AM CDT AM CDT Veronica Heredia DO LAB_1 Performing Organization Address City/[facility] Phon e Number [facility] [address] [place] [address] documented in this encounter Visit Diagnoses Diagnosis Vitamin B12 deficiency (HRC) Other B-complex deficiencies Preoperative examination Preoperative examination, unspecified Essential hypertension (HRC) Unspecified essential hypertension documented in this encounter Care Teams Hoop Punch And Coiler Operator Relationship Specialty Start Date End Date Veronica Heredia DO PCP - General Family Practice 03/22/17 [address] [facility] [place] [address] documented as of this encounter
--- OUTSIDE RECORDS SUMMARY | 2022-08-15 14:51 | XMS_ITS | Encounter Summary ---
:1940 Author Organization [facility] Address [address], [place] [address] Care Team Providers Name Role Phone Veronica Heredia DO Primary Care Provider Reason for Visit Reason Comments RESULTS, TEST Encounter Details Date Type Department Care Team Description 03/08/2021 Phone Visit [facility] Veronica Heredia, Vitamin B 12 deficiency (Primary Dx); Medicine DO Paresthesia [id number] [place] [address] [address] [place] [address] [place] [phone] Social History Tobacco Use Types Packs/Day Years [...] Sign Reading Time Taken Comments Blood Pressure - - Pulse - - Temperature - - Respiratory Rate - - Oxygen Saturation - - Inhaled Oxygen Concentration - - Weight 87.1 kg (192 lb) 03/08/2021 8:05 AM CDT pt. repo rted Height 162.6 cm (5' 4) 03/08/2021 8:05 AM CDT pt. repo rted Body Mass Index 32.96 03/08/2021 8:05 AM CDT documented in this encounter Progress Notes FabionilsonVeronica, DO - 03/08/2021 10:00 AM CDT CHIEF COMPLAINT: Chief Complaint Patient presents with ??? RESULTS, TEST SUBJECTIVE: This is a 80 y.o. female patient who presents for a phone visit for to follow-up on labs related to her recent paresthesia evaluation. She is still having ongoing foot symptoms without progression, is not affecting her sleep or her quality of life thus far and she does not desire any treatment for thediscomfort at this time. She did have a low normal/borderline B12 level and an elevated methylmalonic acid level and no anemia. She has no GI symptoms. She eats eggs, dairy and meat. TSH was at goal. Kidney function was initially elevated however she believes she was dehydrated recheck of this was normal. UA with white blood cells and urine culture with urogenital usman. Positive FLORINDA. She has no rashes and no swollen joints occasional right wrist will ache otherwise no joint concerns at this time. She is scheduled for EMG and neurology consult the end of this month in early April. PAST MEDICAL HISTORY: Patient Active Problem List Diagnosis ??? Essential hypertension (HRC) ??? Hyperlipidemia (HRC) ??? Esophageal reflux ??? Calculus of kidney ??? Endometrial cancer (HRC) ??? Hypothyroidism (HRC) MEDICATIONS: Current Outpatient Medications Medication Sig Dispense Refill ??? acetaminophen (TYLENOL) 325 MG tablet Take 325-650 mg by mouth every 4 hours as needed for Pain. ??? cholecalciferol (VITAMIN D3) 1000 units tablet Take 1,000 Units by mouth daily. ??? cyanocobalamin (VITAMIN B12) 1000 MCG tablet Take 1 Tablet by mouth daily. 90 Tablet 3 ??? levothyroxine (SYNTHROID) 75 MCG tablet Take [...] Penicillins Hives ??? Sulfa Antibiotics Hives OBJECTIVE: Speaks in full sentences without audible difficulty in breathing. ASSESSMENT/PLAN: ICD-10-CM 1. Vitamin B12 deficiency E53.8 cyanocobalamin (VITAMIN B12) 1000 MCG tablet Vitamin B-12 2. Paresthesia R20.2 1. B12 replacement sent and recheck B12 level in 3 months. 2. Multiple contributing factors which may be causing peripheral neuropathy including hypothyroidism, prediabetes and B12 deficiency however she also has a positive FLORINDA without rheumatologic symptoms at this time, continue with plan for EMG and neurology consultation. Neuropathic pain medication offered she declined at this time. 3. Follow-up prn and q3-6 mo chronic conditions follow-up. Total time- 21 mins. Phone time- 11 mins. This was dictated using a voice recognition program, typographical and sound like errors may occur. documented in this encounter Plan of Treatment Not on filedocumented as of this encounter Results (ABNORMAL) Vitamin B-12 (07/14/2021 8:09 AM CDT) P athologist Signature Vitamin B12 1,084 (H) 213 - 816 07/14/2021 [facility] pg/mL 1:40 PM CDT LABORATORY Specimen Anatomical Collection Method / Collection Time Recei la Time (Source) Location / Volume Laterality Blood Venipuncture / 07/14/2021 8:09 07/14/2021 8:09 Unknown AM CDT AM CDT Veronica Heredia DO LAB_1 Performing Organization Address City/State/ZIP Code Phon e Number [facility] [address] [place] [address] documented in this encounter Visit Diagnoses Diagnosis Vitamin B12 deficiency (HRC) - Primary Other B-complex deficiencies Paresthesia Disturbance of skin sensation documented in this encounter Care Teams Ticket Printer And Tagger Relationship Specialty Start Date End Date Veronica Heredia, PCP - General Family Practice 03/22/17 [address] [facility] [place] [address] documented as of this encounter
--- OUTSIDE RECORDS SUMMARY | 2022-08-15 14:51 | XMS_ITS | Encounter Summary ---
:1940 Author Organization [facility] Address [address] [place] [address] Care Team Providers Name Role Phone RoblesVeronica collins Benito DO Primary Care Provider Encounter Details Date Type Department Care Team Description 03/01/2021 Lab Visit [facility] Paresthesia (Primary Dx); [address] [facility] Emerita vated serum creatinine; Drive Essential hypertension; [place] [address] Positive FLORINDA (antinuclear an tibody) [phone] Social History Tobacco Use Types Packs/Day Years [...] Name Priority Date/Time Associated Diagnosis Comme nts URINE CULTURE Routine 03/01/2021 8:44 AM Elevated serum Result s for this CDT creatinine procedure are i n the results section. URINALYSIS ROUTINE, Routine 03/01/2021 8:44 AM Elevated serum Results for this MICRO/CULTURE IF POS CDT creatinine procedu re are in the results section. ALBUMIN/CREAT RATIO Routine 03/01/2021 8:44 AM Essential Re sults for this CDT hypertension procedure are in Positive FLORINDA the results (antinuclear section. antibody) Elevated serum creatinine UA MICRO Routine 03/01/2021 8:44 AM Elevated serum Results for this CDT creatinine procedure are i n the results section. CONTAINER TEST Routine 03/01/2021 8:38 AM Paresthesia Results for this CDT procedure are i n the results section. CREATININE / GFR Routine 03/01/2021 8:38 AM Elevated serum Res ults for this CDT creatinine procedure are i n the results section. documented in this encounter Results Urine Culture (03/01/2021 8:44 AM CDT) [facility] Method Time Signature Urine Culture Urogenital 03/02/2021 [facility] 10:05 AM CDT HOSPITAL Specimen Anatomical Collection Method Collection Time Receive d Time (Source) Location / / Volume Laterality Urine URINE SPECIMEN Non-blood 03/01/2021 8:44 AM 021 8:57 COLLECTION, CLEAN Collection / CDT AM CDT CATCH / Unknown Unknown Veronica Heredia DO LAB_1 Performing Organization Address City/[facility] Phon e Number [address] [address] (ABNORMAL) UA Micro (03/01/2021 8:44 AM CDT) [facility] Method Time Signature Red Blood 0-3 0 - 3 03/01/2021 [facility] Cells /HPF 8:57 AM CDT LABORATORY White Blood 21-50 (A) 0 - 5 03/01/2021 [facility] Cells /HPF 8:57 AM CDT LABORATORY Bacteria Moderate (A) None Seen 03/01/2021 [facility] /HPF 8:57 AM CDT LABORATORY Squamous Many (A) None 03/01/2021 [facility] Epithelial Seen, 8:57 AM CDT LABORATORY Cells Occasiona l, Few /HPF Specimen Anatomical Collection Method Collection Time Receive d Time (Source) Location / / Volume Laterality Urine URINE SPECIMEN Non-blood 03/01/2021 8:44 AM 021 8:44 COLLECTION, CLEAN Collection / CDT AM CDT CATCH / Unknown Unknown Veronica Heredia DO LAB_1 Performing Organization Address City/[facility]/ZIP Code Phon e Number [facility] [address] [place] [address] Cente Microalbumin Urine Random (UMAR) (03/01/2021 8:44 AM CDT) P athologist Signature Albumin, 34.8 mg/L 03/01/2021 [facility] Urine, Random 1:05 PM CDT LABORATORY Creatinine, 165 >20 mg/dL 03/01/2021 [facility] Urine, Random 1:05 PM CDT LABORATORY Albumin/Creati 21 <30 mg/g 03/01/2021 [facility] nine Ratio, 1:05 PM CDT LABORATORY Urine, Random Specimen Anatomical Collection Method Collection Time Receive d Time (Source) Location / / Volume Laterality Urine Non-blood 03/01/2021 8:44 AM 8:44 Collection / CDT AM CDT Unknown Veronica Heredia LAB_1 Performing Organization Address City/State/ZIP Code Phon e Number [facility] [address] [place] [address] (ABNORMAL) Urinalysis Routine, Micro/Culture if Pos (03/01/2021 8:44 AM CDT) Patholo gist Method Time Signature Urine Culture Urinalysis 03/01/2021 [facility] Comment results meet 8:57 AM CDT LABORATORY criteria for reflex, culture performed. Urine Color Yellow Straw-Yello 03/01/2021 [facility] w 8:57 AM CDT LABORATORY Urine Clarity Clear Clear 03/01/2021 [facility] 8:57 AM CDT LABORATORY Specific 1.015 1.005 - 03/01/2021 [facility] [place], 1.030 8:57 AM CDT LABORATORY Urine PH Urine 7.0 5.0 - 8.0 03/01/2021 [facility] 8:57 AM CDT LABORATORY Protein, Negative Neg/Trace 03/01/2021 [facility] Urine Qual 8:57 AM CDT LABORATORY (mg/dL) [...] Veronica Heredia DO LAB_1 Performing Organization Address City/[facility]/ZIP Code Phon e Number [facility] [address] [place] [address] [phone] Cente Creatinine (03/01/2021 8:38 AM CDT) athologist Signature Creatinine 0.91 0.55 - 03/01/2021 [facility] 1.02 mg/dL 12:24 PM CDT LABORATORY GFR, Estimated >60 >60 03/01/2021 [facility] mL/min/1.7 12:24 PM CDT LABORATORY 3m2 Specimen Anatomical Collection Method / Collection Time Recei la Time (Source) Location / Volume Laterality Blood Venipuncture / 03/01/2021 8:38 03/01/2021 8:38 Unknown AM CDT AM CDT Veronica M Fabionilson LAB_1 Performing Organization Address City/State/ZIP Code Phon e Number [facility] [address] [place] [address] CONTAINER TEST (03/01/2021 8:38 AM CDT) athologist Signature Container Done 03/01/2021 [facility] Given 10:00 AM CDT LABORATORY Specimen Anatomical Collection Method Collection Time Receive d Time (Source) Location / / Volume Laterality Other Specimen 03/01/2021 8:38 AM 021 8:38 Type CDT AM CDT Clinician Non Pn MD LAB_1 Performing Organization Address City/State/ZIP Code Phon e Number [facility] [address] [place] [address] Cente documented in this encounter Visit Diagnoses Diagnosis Paresthesia - Primary Disturbance of skin sensation Elevated serum creatinine Other nonspecific findings on examinatio n of blood Essential hypertension (HRC) Unspecified essential hypertension Positive FLORINDA (antinuclear antibody) Other and unspecified nonspecific immuno logical findings documented in this encounter Care Teams Director Of People Relationship Specialty Start Date End Date Veronica Heredia DO PCP - General Family Practice 03/22/17 [address] [facility] [address] [place] [address] documented as of this encounter
--- OUTSIDE RECORDS SUMMARY | 2022-08-15 14:51 | XMS_ITS | Encounter Summary ---
:1940 Author Organization [facility] Address [address] [place] [address] Care Team Providers Name Role Phone Veronica Heredia DO Primary Care Provider Reason for Visit Reason Onset Date Comments Refill 06/16/2020 metoprolol succinate (TOPROL XL) 25 MG 24 hour release tablet Encounter Details Date Type Department Care Team Description 06/16/2020 Refill [facility] Veronica Heredia, DO Refill (metoprolol [address] [facility] [address] [facility] succinate (TOPROL XL) [address] [place] 24 [place] [address] [place], [place] tablet) [phone] (Wo rk) Social History Tobacco Use Types [...] documented as of this encounter Nursing Notes Elsi Sands - 06/17/2020 3:18 PM CDT Left message that script was filled, and to schedule a visit. Janet Toscano, RN - 06/17/2020 3:15 PM CDT Further Assistance Needed on Refill from Speech/Language Therapist Patient is overdue for Office visit. Last qualifying visit: 06/11/2019 (with VERONICA HEREDIA)? Next scheduled visit: None ? Please call patient to schedule a VIDEO VISIT/ OFFICE VISIT and document using .SONALI. After attempting to schedule patient: Close encounter. Refill has already been processed. Requested Prescriptions Pending Prescriptions Disp Refills ??? metoprolol succinate (TOPROL XL) 25 MG 24 hour release tablet 30 Tablet 0 Sig: Take 1 Tab by mouth daily. Take with Toprol XL 50 mg tab to equal 75 mg. Interface, Out Surescripts Prov Query - 06/16/2020 9:42 AM CDT metoprolol succinate (TOPROL XL) 25 MG 24 hour release tablet Medication started: 07/09/2017 Last ordered by VERONICA HEREDIA: 03/25/2020 (83 days ago) QTY: 90, Refills: 0, Sig: take 1 tab by mouth daily. take with toprol xl 50 mg tab to equal 75 mg. (unchanged) -> The requested strength (25 mg extended release oral tablet) was last ordered on 03/25/2020. The patient is taking 50 mg extended release oral tablet as of 03/25/2020. -> The medication is active at more than one strength (25 mg on 03/25/2020, 50 mg on 03/25/2020). -> Refill x 1 month (courtesy refill. overdue for an office visit) -> Calculate the quantity and number of refills manually. Last qualifying visit: 06/11/2019 (with VERONICA HEREDIA) (A more recent visit (in Family Practice with SUSAN ELLIOTT) was found) Next scheduled visit: None SBP: 114 mm Hg on 08/05/2019 DBP: 78 mm Hg on 08/05/2019 Powered by [employer], Reference: [id number], 06/16/2020 9:42:10 AM CDT, Pool: YURY FP REFILL ([id number]) documented in this encounter Plan of Treatment Not on filedocumented as of this encounter Visit Diagnoses Diagnosis Essential hypertension (HRC) Unspecified essential hypertension documented in this encounter Care Teams Rag Room Supervisor Relationship Specialty Start Date End Date Veronica Heredia, DO PCP - General Family Practice 03/22/[address] [place], [place] [address] documented as of this encounter
--- OUTSIDE RECORDS SUMMARY | 2022-08-15 14:51 | XMS_ITS | Encounter Summary ---
:1940 Author Organization [facility] Address [address] [place] [address] Care Team Providers Name Role Phone Veronica Heredia DO Primary Care Provider Encounter Details Date Type Department Care Team Description 02/25/2021 Notes/Orders [facility] Veronica Heredia, Essential hypertension (Primary Dx); Medicine DO Positive FLORINDA (antinuclear antibody); [address] [facility] [address] [facility] serum creatinine [place] [address] [facility] [place] [phone] [address] Social History Tobacco Use Types Packs/Day Years [...] on filedocumented as of this encounter Results Microalbumin Urine Random (UMAR) (03/01/2021 8:44 AM CDT) P athologist Signature Albumin, 34.8 mg/L 03/01/2021 [facility] Urine, Random 1:05 PM CDT LABORATORY Creatinine, 165 >20 mg/dL 03/01/2021 [facility] Urine, Random 1:05 PM CDT LABORATORY Albumin/Creati 21 <30 mg/g 03/01/2021 [facility] nine Ratio, 1:05 PM CDT LABORATORY Urine, Random Specimen Anatomical Collection Method Collection Time Receive d Time (Source) Location / / Volume Laterality Urine Non-blood 03/01/2021 8:44 AM 8:44 Collection / CDT AM CDT Unknown Veronica Heredia DO LAB_1 Performing Organization Address City/State/ZIP Code Phon e Number [facility] [address] [place] [address] documented in this encounter Visit Diagnoses Diagnosis Essential hypertension (HRC) - Primary Unspecified essential hypertension Positive FLORINDA (antinuclear antibody) Other and unspecified nonspecific immuno logical findings Elevated serum creatinine Other nonspecific findings on examinatio n of blood documented in this encounter Care Teams High Lift Operator Relationship Specialty Start Date End Date Veronica Heredia DO PCP - General Family Practice 03/22/17 [address] [facility] [address] [place] [address] documented as of this encounter
--- OUTSIDE RECORDS SUMMARY | 2022-08-15 14:51 | XMS_ITS | Encounter Summary ---
:1940 Author Organization [facility] Address [address] [facility] [place] [address] Care Team Providers Name Role Phone Veronica Heredia DO Primary Care Provider Reason for Visit Reason Comments Refill Losartan Potassium-HCTZ (HYZ AAR) 100-12.5 MG tablet [Pharmacy Med Name: LOSARTAN-HCTZ 100-12.5 MG TA B] Encounter Details Date Type Department Care Team Description 07/06/2021 Refill [facility] Veronica Heredia, DO Refill (Losartan [address] [facility] [address] [facility] Potassium-HCTZ (HYZAAR) Drive Ctr Dr 100-12.5 [place] [address] [place], [place] [Pharmacy Med Name: [phone] LOSARTAN-HCTZ 100-12.5 (Wo rk) MG TAB]) Social History Tobacco Use Types [...] documented as of this encounter Nursing Notes Le Castillo RN - 07/13/2021 10:53 AM CDT Michele verifies she is not taking the Losartan. Has Valsartan and HCTZ to take daily. Requested Prescriptions Refused Prescriptions Disp Refills ??? Losartan Potassium-HCTZ (HYZAAR) 100-12.5 MG tablet [Pharmacy Med Name: LOSARTAN-HCTZ 100-12.5 MG TAB] 90 Tablet 2 Sig: TAKE 1 TABLET BY MOUTH EVERY DAY Refused By: LE CASTILLO Reason for Refusal: Med replaced or stopped Pamela Lin RN - 07/12/2021 11:49 AM CDT Left message for caller to return call to [phone] Matilde Salmon RN - 07/08/2021 8:52 PM CDT Further Assistance Needed on Refill from Nursing/Triage Requested medication was discontinued Next steps: Nursing/Triage to complete refill as appropriate. Requested Prescriptions Pending Prescriptions Disp Refills Losartan Potassium-HCTZ (HYZAAR) 100-12.5 MG tablet [Pharmacy Med Name: LOSARTAN-HCTZ 100-12.5 MG TAB] 90 Tablet 2 Sig: TAKE 1 TABLET BY MOUTH EVERY DAY Interface, Out Surescripts Prov Query - 07/06/2021 12:37 AM CDT Losartan Potassium-HCTZ (HYZAAR) 100-12.5 MG tablet [Pharmacy Med Name: LOSARTAN-HCTZ 100-12.5 MG TAB] Medication started: 02/05/2019 Last ordered by VERONICA HEREDIA M: 06/30/2020 (371 days ago) QTY: 90, Refills: 3, Sig: take 1 tablet by mouth daily. (changed but equivalent) -> This medication was discontinued on 05/10/2021 by VERONICA HEREDIA. -> Refill x 9 months, qty: 90, refills: 2 (until due for a(n) K check and Na check) Last qualifying visit: 05/10/2021 (with VERONICA HEREDIA) Next scheduled visit: None Cr: 0.91 mg/dL on 03/01/2021 Na: 141 mEq/L on 02/22/2021 K: 4.1 mEq/L on 02/22/2021 Powered by [employer], Reference: [id number], 07/06/2021 12:37:02 AM CDT, Pool: YURY LARRY REFILL ([id number]) Interface, Out Surescripts Prov Query - 07/06/2021 12:37 AM CDT The following lab order(s) may be associated with the following Patient Result Comment (Entered by Susan Wallace MD at 03/02/2021 1:52 PM): BASIC METABOLIC PANEL Some of your labs are abnormal and require a follow-up video visit with Dr. Heredia to discuss how toproceed with investigation of these. Please make an appointment with her at your earliest convenience.Susan Wallace MD covering for Dr Heredia Interface, Out Surescripts Prov Query - 07/06/2021 12:37 AM CDT The following lab order(s) may be associated with the following Patient Result Comment (Entered by Susan Wallace MD at 03/02/2021 2:00 PM): CREATININE / GFR These are Jagjit Wallace MD covering for Dr Heredia documented in this encounter Plan of Treatment Not on filedocumented as of this encounter Visit Diagnoses Not on filedocumented in this encounter Care Teams Freight Adjuster Relationship Specialty Start Date End Date Veronica Heredia DO PCP - General Family Practice 03/22/17 [address] [facility] [address] [place], [place] [address] documented as of this encounter
--- OUTSIDE RECORDS SUMMARY | 2022-08-15 14:51 | XMS_ITS | Encounter Summary ---
:1940 Author Organization [facility] Address [address] [place] [address] Care Team Providers Name Role Phone RoblesPan collinsaissatou Oliver DO Primary Care Provider Encounter Details Date Type Department Care Team Description 02/22/2021 Lab Visit [facility] Paresthesia; [address] [facility] Hyp othyroidism, unspecified type; Drive Prediabetes; [place] [address] Essential hypertension [phone] Social History Tobacco Use Types Packs/Day Years [...] Name Priority Date/Time Associated Diagnosis Comme nts ELP, UR PROT RANDOM Routine 02/22/2021 2:12 Paresthesia Resul ts for this PM CDT procedure are i n the results section. METHYLMALONIC ACID Routine 02/22/2021 2:07 Paresthesia Result s for this QUANT PM CDT procedure are i n the results section. ELP, CASCADE, SERUM Routine 02/22/2021 2:07 Paresthesia Resul ts for this PM CDT procedure are i n the results section. HGB A1C Routine 02/22/2021 2:04 Prediabetes Results for this PM CDT procedure are i n the results section. TSH, SENSITIVE Routine 02/22/2021 2:03 Hypothyroidism, Results for this PM CDT unspecified type procedure are in Paresthesia the results section. BASIC METABOLIC PANEL Routine 02/22/2021 2:03 Essential Res ults for this PM CDT hypertension procedure are i n the results section. COMPLETE BLOOD Routine 02/22/2021 2:03 Paresthesia Results fo r this COUNT-NO DIFF PM CDT procedure are in the results section. FLORINDA, QUANT (TITER) Routine 02/22/2021 2:03 Paresthesia Result s for this PM CDT procedure are i n the results section. VITAMIN B12 ONLY Routine 02/22/2021 2:03 Paresthesia Results for this PM CDT procedure are i n the results section. ESR Routine 02/22/2021 2:03 Paresthesia Results for this PM CDT procedure are i n the results section. documented in this encounter Results (ABNORMAL) ELP - Electrophoresis Protein, Random Urine (02/22/2021 2:12 PM CDT) [facility] Method Time Signature Total Protein, 29 (H) 0 - 14 [facility] mg/dL 2:07 PM CDT [facility] Albumin, Urine 93.9 % 02/25/2021 [facility] 2:07 PM CDT C[facility]AL LAB Alpha 1, Urine 0.0 % 02/25/2021 [facility] 2:07 PM CDT [facility] Alpha 2, Urine 0.3 % 02/25/2021 [facility] 2:07 PM CDT [facility] Beta, Urine 5.8 % 02/25/2021 [facility] 2:07 PM CDT [facility] Gamma, Urine 0.0 % 02/25/2021 [facility] 2:07 PM CDT [facility] LAB Monoclonal 02/25/2021 [facility] Mark 2:07 PM CDT CENTRAL LAB Comment: See Interpretation Interpretation Urine protein electrophoresi s shows a non-selective proteinuria pattern. 02/25/2021 2:07 PM [facility] The presence of a monoclonal protein cannot be entirely excluded. Suggest follow-up with urine immunofixation, if clinically indicated. CDT LAB 24 hour or first morning uri ne collections have higher probabilities of detecting abnormalities. Signed Out By [employer] 02/25/2021 2:07 PM [facility] Laboratory CDT LAB Specimen Anatomical Collection Method Collection Time Receive d Time (Source) Location / / Volume Laterality Urine Non-blood 02/22/2021 2:12 PM 2:12 Collection / CDT PM CDT Unknown Veronica Heredia DO LAB_1 Performing Organization Address City/State/ZIP Code Phon e Number [facility] [address] [address] (ABNORMAL) Methylmalonic Acid QN Serum (02/22/2021 2:07 PM CDT) [facility] Method Time Signature Methylmalonic 0.78 (H) 0.00 [...] and its performa nce characteristics determined by [employer]. It has not been cleared or approved by the [place] Food and Drug Adminis tration. This test was performed in a CLIA certified laboratory and is intended for clinical purposes. Performed By: [employer] [address] [place] [id number] Buffer Nickel: Lita George MD Specimen Anatomical Collection Method / Collection Time Recei la Time (Source) Location / Volume Laterality Blood Venipuncture / 02/22/2021 2:07 02/22/2021 2:08 Unknown PM CDT PM CDT Veronica Heredia DO LAB_1 Performing Organization Address City/State/ZIP Code Phon e Number [employer] [facility] [address] [phone] Electrophoresis [place] To NORA,Serum (02/22/2021 2:07 PM CDT) Component Value Ref Test Analysis Performed At [facility] Range Method Time Signature Total Protein 7.2 6.4 - 02/23/2021 [facility] 8.3 12:06 PM [facility] LAB g/dL CDT Albumin 4.5 3.4 - 02/23/2021 [facility] 4.8 12:06 PM [facility] LAB g/dL CDT Alpha 1 0.3 0.2 - 02/23/2021 [facility] 0.5 12:06 PM [facility] g/dL CDT Alpha 2 0.7 0.5 - 02/23/2021 [facility] 1.1 12:06 PM [facility] g/dL CDT Beta 0.7 0.6 - 02/23/2021 [facility] 1.1 12:06 PM [facility] g/dL CDT Gamma 0.9 0.7 - 02/23/2021 [facility] 1.6 12:06 PM [facility] LAB g/dL CDT Monoclonal Mark 0.0 <=0.0 02/23/2021 [facility] g/dL 12:06 PM [facility] LAB CDT Interpretation No monoclonal 02/23/2021 [facility] protein is 12:06 PM [facility] LAB detected in the CDT serum. Additional Not indicated. 02/23/2021 [facility] 12:06 PM [facility] LAB CDT Signed Out By [facility] 02/23/2021 [facility] 12:06 PM [facility] Laboratory CDT Specimen Anatomical Collection Method / Collection Time Recei la Time (Source) Location / Volume Laterality Blood Venipuncture / 02/22/2021 2:07 02/22/2021 2:08 Unknown PM CDT PM CDT Veronica Heredia DO LAB_1 Performing Organization Address City/State/ZIP Code Phon e Number [employer] [facility]AL [facility] [address] [address] Hemoglobin A1C Glycosylated (02/22/2021 2:04 PM CDT) [facility] Method Time Signature Hemoglobin A1C 5.6 <=5.6 % 02/22/2021 [employer] 8:31 PM CDT CENTRAL LAB Specimen Anatomical Collection Method / Collection Time Recei la Time (Source) Location / Volume Laterality Blood Venipuncture / 02/22/2021 2:04 02/22/2021 2:08 Unknown PM CDT PM CDT Veronica Heredia DO LAB_1 Performing Organization Address City/State/ZIP Code Phon e Number [facility] [address] [address] (ABNORMAL) Basic Metabolic Panel (02/22/2021 2:03 PM CDT) [facility] Method Time Signature Sodium 141 136 - 145 02/22/2021 [facility] mmol/L 6:25 PM CDT LABORATORY Potassium 4.1 3.5 - 5.1 02/22/2021 [facility] mmol/L 6:25 PM CDT LABORATORY Chloride 101 98 - 109 02/22/2021 [facility] mmol/L 6:25 PM CDT LABORATORY CO2 28 20 - 29 02/22/2021 [facility] mmol/L 6:25 PM CDT LABORATORY Anion Gap 12 7 - 16 02/22/2021 [facility] mmol/L 6:25 PM CDT LABORATORY Calcium 9.8 8.4 - 10.4 02/22/2021 [facility] mg/dL 6:25 PM CDT LABORATORY BUN 23 7 - 26 02/22/2021 [facility] mg/dL 6:25 PM CDT LABORATORY Creatinine 1.09 (H) 0.55 - 02/22/2021 [facility] 1.02 mg/dL 6:25 PM CDT LABORATORY GFR, Estimated 49 (L) >60 02/22/2021 [facility] mL/min/1.7 6:25 PM CDT LABORATORY 3m2 Glucose 98 70 - 100 02/22/2021 [facility] mg/dL 6:25 PM CDT LABORATORY Comment: The [...] 2:08 Unknown PM CDT PM CDT Narrative [facility] - 02/22/2021 6:25 P M CDT The National Kidney Disease Education Pr ogram suggests measuring Cystatin C in patients with eGFRcrea of 45 to 59 ml/mi n/1.73^2 who do not have other markers of kidney damage (i.e. elevated urine Album in/Creatinine Ratio or a prior Cystatin C confirming the presence of chronic kidne y disease). Veronica Heredia DO LAB_1 Performing Organization Address [facility] Phon e Number [facility] [address] [place] [address] [facility] [address] [place] [address], [facility] [place] ESR - Sedimentation Rate (02/22/2021 2:03 PM CDT) [facility] gist Method Time Signature Sedimentation Rate 7 0 - 20 02/22/2021 [facility] mm/hr 3:06 PM CDT LABORATORY Specimen Anatomical Collection Method / Collection Time Recei la Time (Source) Location / Volume Laterality Blood Venipuncture / 02/22/2021 2:03 02/22/2021 2:08 Unknown PM CDT PM CDT Veronica M Yan SINGH LAB_1 Performing Organization Address [facility] Phon e Number [facility] [address] [place] [address] [phone] Cente (ABNORMAL) Anti-Nuclear Antibody Titer by Immunofluorescent Antibody (IFA) and Pattern (02/22/2021 2:03 PM CDT) P athologist Signature FLORINDA Titer 1:320 (A) <1:80 02/23/2021 [facility] 10:22 AM CDT LABORATORY FLORINDA Pattern Speckled 02/23/2021 [facility] 10:22 AM CDT LABORATORY Comment: This is a test that requires in terpretation by your provider and does not necessarily indicate that you have a spe cific disease. FLORINDA Interpretation Positive (A) Negative 02/23/2021 10:2 2 AM [facility] CDT Specimen Anatomical Collection Method / Collection Time Recei la Time (Source) Location / Volume Laterality Blood Venipuncture / 02/22/2021 2:03 02/22/2021 2:08 Unknown PM CDT PM CDT Veronica Heredia DO LAB_1 Performing Organization Address [facility]/ZIP [facility] Phon e Number [facility] [address] [place] [address] TSH (02/22/2021 2:03 PM CDT) athologist Signature TSH, Sensitive 0.74 0.30 - 02/22/2021 [facility] 4.50 6:51 PM CDT LABORATORY uIU/mL Specimen Anatomical Collection Method / Collection Time Recei la Time (Source) Location / Volume Laterality Blood Venipuncture / 02/22/2021 2:03 02/22/2021 2:08 Unknown PM CDT PM CDT Veronica Heredia DO LAB_1 Performing Organization Address [facility] Phon e Number [facility] [address] [place] [address] CBC - Complete Blood Count-No Diff (02/22/2021 2:03 PM CDT) athologist Signature WBC 6.7 3.5 - 10.5 [...] Veronica Heredia DO LAB_1 Performing Organization Address City/[facility]/ZIP Code Phon e Number [facility] [address] [facility] [place] [phone] Cente Vitamin B-12 (02/22/2021 2:03 PM CDT) athologist Signature Vitamin B12 279 213 - 816 02/22/2021 [facility] pg/mL 6:51 PM CDT LABORATORY Specimen Anatomical Collection Method / Collection Time Recei la Time (Source) Location / Volume Laterality Blood Venipuncture / 02/22/2021 2:03 02/22/2021 2:08 Unknown PM CDT PM CDT Veronica Heredia DO LAB_1 Performing Organization Address City/[facility]/ZIP Code Phon e Number [facility] [address] [place] [address] documented in this encounter Visit Diagnoses Diagnosis Paresthesia Disturbance of skin sensation Hypothyroidism, unspecified type (HRC) Prediabetes Other abnormal glucose Essential hypertension (HRC) Unspecified essential hypertension documented in this encounter Care Teams Architectural Project Manager Relationship Specialty Start Date End Date Veronica Heredia DO PCP - General Family Practice 03/22/17 [address] [facility] [place] [address] documented as of this encounter
--- OUTSIDE RECORDS SUMMARY | 2022-08-15 14:51 | XMS_ITS | Encounter Summary ---
:1940 [address] [facility] Address [address] [place] [address] Care Team Providers Name Role Phone Veronica Heredia DO Primary Care Provider Reason for Visit Reason Comments Patient Calling Back Encounter Details Date Type Department Care Team Description 07/19/2021 Telephone [facility] Veronica Heredia, DO Patient Calling Back [address] [facility] [address] [facility] [place] [address] [place] [phone] (Wo rk) Social History Tobacco Use Types [...] documented as of this encounter Nursing Notes Therese Avila RN - 07/19/2021 2:22 PM CDT Informed of lab results from preop (per provider result note). Preop was faxed to surgery center. She has no further questions. documented in this encounter Plan of Treatment Not on filedocumented as of this encounter Visit Diagnoses Not on filedocumented in this encounter Care Teams Film Processor Relationship Specialty Start Date End Date Veronica Heredia DO PCP - General Family Practice 03/22/17 [address] [facility] [place] [address] documented as of this encounter
--- OUTSIDE RECORDS SUMMARY | 2022-08-15 14:51 | XMS_ITS | Encounter Summary ---
:1940 Author Organization [facility] Address [address] [place] [address] Care Team Providers Name Role Phone Veronica Heredia DO Primary Care Provider Encounter Details Date Type Department Care Team Description 07/15/2021 Notes/Orders [place] [address] [facility] [address] [place] [address] [place] [address] [phone] (Wo rk) Social History Tobacco Use Types [...] documented as of this encounter Progress Notes Adin Roberts LPN - 07/15/2021 10:42 AM CDT Pre-op faxed to [facility]. documented in this encounter Plan of Treatment Not on filedocumented as of this encounter Visit Diagnoses Not on filedocumented in this encounter Care Teams Psychological Operations Specialist Relationship Specialty Start Date End Date Veronica Heredia, PCP - General Family Practice 03/22/17 [address] [facility] [place] [address] documented as of this encounter
--- OUTSIDE RECORDS SUMMARY | 2022-08-15 14:51 | XMS_ITS | Encounter Summary ---
:1940 Author Organization [facility] Address [address], [place] [address] Care Team Providers Name Role Phone RobleskarinaVeronica DO Primary Care Provider Reason for Visit Reason Comments Follow-up Encounter Details Date Type Department Care Team Description 03/04/2021 [facility] Dee Baker L, Endometr ial cancer Gynecologic Oncology CLOTH STOCK SORTER, MAGALYS (HRC) (Primary Dx) [address] [place] [address] [phone] Social History Tobacco Use Types Packs/Day Years [...] Sign Reading Time Taken Comments Blood Pressure 142/89 03/04/2021 10:01 AM CDT Pulse 82 03/04/2021 10:01 AM CDT Temperature - - Respiratory Rate - - Oxygen Saturation - - Inhaled Oxygen Concentration - - Weight 87.3 kg (192 lb 6.4 oz) 03/04/2021 10:01 AM CDT Height - - Body Mass Index 33.03 02/22/2021 1:04 PM CDT documented in this encounter Progress Notes Dee Baker, JUDE, MAGALYS - 03/04/2021 10:30 AM CDT Follow Up Notes on Referred Patient RE: Michele Angulo : 1940 HEAVEN: 03/04/2021 Michele Angulo is a 80 y.o. old [...] No cough, SOB or LE edema. She recently was diagnosed with neuropathy. She just came back from [place] and will plan to go back at the end of July. She has been walking 1 mile daily. Review of Systems: Systemic no weight changes; [...] flashes; no heat/cold intolerance Neurological no tremor; + numbness and tingling; no headaches; no difficulty sleeping Past Medical History: Past Medical History: Diagnosis Date ??? Aspirin long-term use 04/16/2015 ASA therapy 75-162 mg/day is recommended for primary CVD prevention because patient -Is female 57 years who have at least one additional major risk factor such as: -HTN -Dyslipdemia ??? Calculus of kidney right side diagnosed CT scan in [place] asymptomatic 04/18/2016 ??? Endometrial cancer (HRC) 05/02/2018 ??? H/O colonoscopy 200704/16/2015 ??? Hyperlipidemia 07/12/2005 takes zocor ??? Hypertension 04/11/2003 takes atenolol cozaar ??? Obesity (HRC) 04/30/2006 LW Onset: [id number] ??? Postmenopausal 04/16/2015 resolved ??? Zoster Past Surgical History: Past Surgical History: Procedure Laterality Date ??? BUNIONECTOMY ??? HYSTERECTOMY total with BSO ??? SALPINGO-OOPHORECTOMY Bilateral Current Medications: Michele has a current medication list which includes the following prescription(s): acetaminophen, cholecalciferol, levothyroxine, losartan potassium-hctz, metoprolol succinate, metoprolol succinate, and simvastatin. Allergies: Allergies Allergen Reactions ??? Contrast [Iodinated [...] Negative Family History Physical Exam: BP (!) 142/89 (BP Location: Right Arm, BP Cuff Size: Regular) Pulse 82 Wt 192 lb 6.4 oz (87.3 kg) BMI 33.03 kg/m?? General Appearance: healthy and alert, no distress [...] transition to the care of her primary CODING COORDINATOR after initial follow-up here. ?? 2.)?Genetic risk factors were assessed and the patient does not meet the qualifications for a referral. ? 3.)?Labs and/or tests ordered include:?none. ?? 4.)?Health maintenance issues addressed today include??routine care with PCP. Thank you for allowing us to participate in the care of your patient. Sincerely, Dee Baker APRN, FABRICATION SUPERVISOR 03/04/2021, 10:31 AM documented in this encounter Nursing Notes Tata Rizo RN - 03/04/2021 10:30 AM CDT Patient was offered a stone finisher for the pelvic exam portion of the visit. The patient DECLINED. documented in this encounter Plan of Treatment Not on filedocumented as of this encounter Visit Diagnoses Diagnosis Endometrial cancer (HRC) - Primary Malignant neoplasm of corpus uteri, exce pt isthmus documented in this encounter Care Teams Cafe Manager Relationship Specialty Start Date End Date Veronica Heredia DO PCP - General Family Practice 03/22/17 [address] [facility] [place] [address] documented as of this encounter
--- OUTSIDE RECORDS SUMMARY | 2022-08-15 14:51 | XMS_ITS | Encounter Summary ---
:1940 Author Organization [facility] Address [address] [facility] [place] [address] Care Team Providers Name Role Phone Veronica Heredia DO Primary Care Provider Reason for Referral Therapies (Routine) - Closed Specialty Diagnoses / Procedures Referred By Contact Refer red To Contact Diagnoses Benign paroxysmal positional [place]igo, [place] [address] [facility] [place] [address] Referral ID Status Reason Start Date Expiration Date Visits Requ ested Visits Authorized [id number] Closed 06/30/2020 08/29/2020 1 1 Scheduling Instructions Your provider has recommended an appoint ment with [facility]. You may call [phone] to schedule your a ppointment. We suggest you call your health insurance company about your coverage an d benefits for this appointment. Reason for Visit Reason Comments Medicare Annual Wellness DIZZINESS Encounter Details Date Type Department Care Team Description 06/30/2020 Office Visit Sawyer Hernandez Veronica Heredia, Encounter for Medicare annual wellness exam (Primary Dx); Medicine DO Benign paroxysmal positional vertigo, un specified laterality; [address] [facility] [address] [address] Essential hypertension; [facility] Hyperlipidemia, unspecified hyperlipidem ia type; [place] [address] [place] Hypothyroidism, unspecified type; [phone] IGT (impaired glucose tolerance); [phone] Hypothyroidism, unspecified type (Work) Social History Tobacco Use Types Packs/Day Years [...] Sign Reading Time Taken Comments Blood Pressure 128/80 06/30/2020 9:58 AM CDT Pulse 72 06/30/2020 9:58 AM CDT Temperature - - Respiratory Rate - - Oxygen Saturation - - Inhaled Oxygen Concentration - - Weight 90.7 kg (200 lb) 06/30/2020 9:58 AM CDT Height 162.6 cm (5' 4) 06/30/2020 9:58 AM CDT Body Mass Index 34.33 06/30/2020 9:58 AM CDT documented in this encounter Patient Instructions Patient InstructionsVeronica Heredia DO - 06/30/2020 10:00 AM CDT Annual Wellness Visit Summary Your care team is recommending the following tests, procedures or services. Some of these recommendations may not be fully covered by Medicare or your insurance. If you have questions, check with your insurance to determine coverage before completing these services. Health Maintenance Due Health Maintenance Due Topic Date Due ??? Advanced Directive 2007 ??? Zoster (3 of 3) 04/02/2019 ??? Medicare Annual Wellness Visit 02/06/2020 ??? Prediabetes: HGBA1C 03/12/2020 If your Medicare Welcome or Annual Wellness Visit is showing you are due in the above list, this will be updated after this visit. You had this completed today and are not due for another year. documented in this encounter Progress Notes Veronica Heredia DO - 06/30/2020 10:00 AM CDT Medicare Annual Subjective/Historical: Michele Angulo is a 79 y.o. old female Chief Complaint Patient presents with ??? Medicare Annual Wellness ??? DIZZINESS Current Concerns: Here for Medicare annual wellness and medication refills. Hypertension, well controlled on home monitoring without any hypotension noted. No chest pain. No difficulty breathing. No activity intolerance. No side effects with her current medications. History of prediabetes, no increased thirst urination. History of hyperlipidemia, no prior CVA or NE. On a statin and tolerating this. History of vertigo for which she was seen in the ED last summer with ECG, MRI and MRA head/neck at that time which were normal, she notes that this has happened about 6 times in the last half of the year, occurs randomly, perceived motion that last for seconds and then resolve spontaneously if she remains still, without other neurologic symptoms associated. Unchanged from last year however she did have about 6 months where it was not occurring. She did home Agnieszka's maneuvers last summer which helped. She never went to physical therapy for this but would consider this now. Last episode was 2 weeks ago. No current neurologic symptoms. No cardiac symptoms associated with this occurs. It never of her current when she goes from lying to rising. No palpitations or irregular heartbeats that she is perceived. Does not exercise related. No falls. Mini-Cog Assessment Word Recall: 3 Clock Draw: 2 Total: 5 Additional Assessments Completed: PHQ-2 was administered today with a total score of: 0 Has a Health Care Directive on file? no. Pertinent Positives from Medicare Wellness Form: MEDICARE ANNUAL WELLNESS CONCERNS 06/30/2020 02/05/2019 How many servings of fruits and vegetables do you eat a day? 2 to 4 2 to 4 (If a dash (-) appears in table above, this question was a pertinent positive during a previous Medicare Welcome or Annual Wellness Visit.) The patient's health maintenance, problem list, past medical history, past surgical history, family history, medication list, allergies, and immunization records have been reviewed and updated in the patient record as necessary. Observed Vitals: BP 128/80 (BP Location: Right Arm, BP Cuff Size: Large) Pulse 72 Ht 5' 4 (1.626 m) Wt200 lb (90.7 kg) BMI 34.33 kg/m?? Gen.: Alert, cooperative in no acute distress. Elderly. Head: Normocephalic, atraumatic. Eyes: PERRLA, full EOM. No scleral icterus or conjunctivitis present. Ears: Normal pinnae, external auditory canals clear, tympanic membranes without effusion, erythema, retraction or bulging. Nose: Patent, without deformity. Throat: Moist mucous membranes without lesions, erythema, or exudate. Neck: Supple, without masses, lymphadenopathy or tenderness. Respiratory: Normal respiratory rate and effort. Lungs are clear to auscultation with good breath sounds bilaterally. No wheeze or crackle. Heart: RRR without murmurs, rubs, or gallops. Abdomen: The abdomen was soft, obese, nondistended and non-tender. No obvious masses or organomegaly. Psych: Does not appear anxious or depressed. Extremities: No cyanosis, clubbing or edema. Musculoskeletal: Normal tone. Skin: No pallor. Neurologic: Alert, non-focal, oriented. Cranial nerves 3-12 intact. Normal coordinated movements. Normal finger-nose testing. Normal gait. Normal strength. Normal sensation to light touch. No nystagmus. Skew negative. Assessment/Plan ICD-10-CM 1. Encounter for Medicare annual wellness exam Z00.00 2. Benign paroxysmal positional vertigo, unspecified laterality H81.10 Physical Therapy CBC - Complete Blood Count-No Diff 3. Essential hypertension I10 Basic Metabolic Panel metoprolol succinate (TOPROL XL) 25 MG 24 hour release tablet metoprolol succinate (TOPROL XL) 50 MG 24 hour release tablet 4. Hyperlipidemia, unspecified hyperlipidemia type E78.5 simvastatin (ZOCOR) 20 MG tablet 5. Hypothyroidism, unspecified type (HRC) E03.9 TSH 6. IGT (impaired glucose tolerance) R73.02 Hgb A1C 7. Hypothyroidism, unspecified type E03.9 Symptoms still consistent with intermittent benign positional vertigo, we discussed vestibular rehabwith physical therapy, she will schedule this. If new or changing symptoms she should be re-evaluated. Blood pressure well controlled, continue current medication regimen, monitoring labs ordered, refills provided. Refill levothyroxine based on value of TSH. Shingrix#2 due, she is uncertain whether not she received this in [place] where she resides half of the year, she will check. Advance care directive paperwork provided, to be returned to clinic. Counseling and education provided today includes proper nutrition and health habits, fall prevention, and for those items ordered above. Plan for future preventive services in Patient Instructions. Follow-up q.6 months regarding chronic health conditions. Veronica Heredia DO 06/30/2020, 12:35 PM documented in this encounter Plan of Treatment Scheduled Referrals Name Type Priority Associated Diagnoses Order S chedule Physical Therapy Referral Routine Benign paroxysmal positi onal Ordered: 06/30/2020 vertigo, unspecified laterality documented as of this encounter Results CBC - Complete Blood [...] Veronica Heredia DO LAB_1 Performing Organization Address City/[facility]/ZIP Code Phon e Number [facility] [address] [place] [address] [facility] (06/30/2020 10:56 AM CDT) P athologist Signature TSH, Sensitive 0.33 0.30 - 06/30/2020 [facility] 4.50 1:38 PM CDT LABORATORY uIU/mL Specimen Anatomical Collection Method / Collection Time Recei la Time (Source) Location / Volume Laterality Blood Venipuncture / 06/30/2020 10:56 0 Unknown AM CDT 10:56 AM CDT Veronica Heredia DO LAB_1 Performing Organization Address [facility] Code Phon e Number [facility] [address] [place] [address] (ABNORMAL) Hgb A1C (06/30/2020 10:56 AM CDT) Patholo gist Method Time Signature Hemoglobin A1C 5.8 (H) <=5.6 % 06/30/2020 [facility] 5:49 PM CDT CENTRAL LAB Specimen Anatomical Collection Method / Collection Time Recei la Time (Source) Location / Volume Laterality Blood Venipuncture / 06/30/2020 10:56 0 Unknown AM CDT 10:56 AM CDT Narrative [facility] CENTRAL LAB - 06/30/2020 5:49 PM CDT For patients not previously diagnosed with diabetes: 5.7-6.4%: Increased risk for diabetes 6.5% and greater: Diagnostic for diabete s For patients diagnosed with diabetes: <8.0%: Goal of therapy for ages 18-75 Clinicians may recommend a higher or low er goal for specific individuals. Veronica Heredia DO LAB_1 Performing Organization Address City/[facility] Code Phon e Number [facility] CENTRAL LAB [address] [address] (ABNORMAL) Basic Metabolic Panel (06/30/2020 10:56 AM CDT) Analysis Performed At Patho logist Time Signature Sodium 143 136 - 145 06/30/2020 [facility] mmol/L 1:38 PM CDT LABORATORY Potassium 3.9 3.5 - 5.1 06/30/2020 [facility] mmol/L 1:38 PM CDT LABORATORY Chloride 105 98 - 109 06/30/2020 [facility] mmol/L 1:38 PM CDT LABORATORY CO2 23 20 - 29 06/30/2020 [facility] mmol/L 1:38 PM CDT LABORATORY Anion Gap 15 7 - 16 06/30/2020 [facility] mmol/L 1:38 PM CDT LABORATORY Calcium 9.4 8.4 - 10.4 06/30/2020 [facility] mg/dL 1:38 PM CDT LABORATORY BUN 16 7 - 26 06/30/2020 [facility] mg/dL 1:38 PM CDT LABORATORY Creatinine 0.88 0.55 - 06/30/2020 [facility] 1.02 mg/dL 1:38 PM CDT LABORATORY GFR, Estimated >60 >60 06/30/2020 [facility] mL/min/1.7 1:38 PM CDT LABORATORY 3m2 Glucose 106 (H) 70 - 100 06/30/2020 [facility] mg/dL 1:38 PM CDT LABORATORY Comment: The [...] Organization Address City/State/ZIP Code Phon e Number [facility] [address] [place] [address] [facility] [address] [place] [address], [facility] documented in this encounter Visit Diagnoses Diagnosis Encounter for Medicare annual wellness e xam - Primary Benign paroxysmal positional vertigo, un specified laterality Essential hypertension (HRC) Unspecified essential hypertension Hyperlipidemia, unspecified hyperlipidem ia type (HRC) Hypothyroidism, unspecified type IGT (impaired glucose tolerance) Impaired glucose tolerance test documented in this encounter Care Teams Cafeteria Operator Relationship Specialty Start Date End Date Veronica Heredia DO PCP - General Family Practice 03/22/17 [address] [facility] [address] [place], [place] [address] documented as of this encounter
--- OUTSIDE RECORDS SUMMARY | 2022-08-15 14:51 | XMS_ITS | Encounter Summary ---
:1940 Author Organization [employer] Address [address], [place] [address] Care Team Providers Name Role Phone Veronica Heredia DO Primary Care Provider Reason for Visit Reason Comments Vestibular Encounter Details Date Type Department Care Team Description 07/05/2020 Office Visit [facility] Lionel Montero, Dionna rees paroxysmal positional vertigo of right ear (Primary Dx); Therapy PT Benign paroxysmal positional vertigo of left ear [id number] [place] [address] [place], [place] [phone] Social History Tobacco Use Types Packs/Day Years [...] encounter Progress Notes Lionel Montero, PT - 07/05/2020 9:00 AM CDT [facility] Progress Note Visit Number: 2 Initial Certification Period: 07/02/2020 to 08/01/2020 Referring Provider: Veronica Heredia Visit Diagnosis: 1. Benign paroxysmal positional vertigo of right ear 2. Benign paroxysmal positional vertigo of left ear Precautions: HTN, history of cancer SUBJECTIVE: Reports she has been having less dizziness. She has not noticed any symptoms when rolling in bed or with quick head movements. She has been trying to do repositioning exercises even though we did not ask her to do any exercises last visit. OBJECTIVE: Positional Tests: Test performed with fixation blocked (frenzel goggles on): Right hallpike: Not tested Left hallpike: positive for dizziness and positive nystagmus: latency of nystagmus - 2 seconds, direction of nystagmus - left torsion, up beating, duration of nystagmus - 36 seconds Right roll test: Not tested Left roll test: Not tested Treatment/Education Today: Canalith Repositioning: Agnieszka maneuver to the left x 3 treatment cycles. Nystagmus and dizziness noted in the first positionduring all 3 cycles, nystagmus and dizziness also noted in the third position during the first cycle. Advised patient to not try to do any repositioning maneuvers between now and her next appointment which is later in the week. HEP: None Timed Code Treatment Minutes: 0 Total Treatment Time: 30 minutes ASSESSMENT/PROGRESS TOWARD GOALS: Signs and symptoms consistent with bilateral BPPV. We treated the right side last visit and today her left Hallpike was positive as well. Continue to question whether right side has cleared completely;did not want to try and treat the right side after performing 3 maneuvers for the left. Patient has noticed an overall improvement in symptoms since last visit. Goals/Functional Outcomes: Patient will no longer have dizziness with rolling in bed in 2-4 week(s). Patient will be independent with home exercise program in 2-4 week(s). Remove debris from semicircular canals to alleviate symptoms of vertigo with functional movements in2-4 week(s). PLAN: Re-check later this week. Re-test right and left Hallpike, treat accordingly. Check DHI. Therapist: Angel Montero, PT, DPT, CSCS, CIMT, [id number] documented in this encounter Plan of Treatment Not on filedocumented as of this encounter Visit Diagnoses Diagnosis Benign paroxysmal positional vertigo of right ear - Primary Benign paroxysmal positional vertigo of left ear documented in this encounter Care Teams Chargemaster Specialist Relationship Specialty Start Date End Date Veronica Heredia DO PCP - General Family Practice 03/22/[address] [facility] [address] [place], [place] [address] documented as of this encounter
--- OUTSIDE RECORDS SUMMARY | 2022-08-15 14:51 | XMS_ITS | Encounter Summary ---
:1940 Author Organization [facility] Address [address] [place] [address] Care Team Providers Name Role Phone FabionilsonVeronica DO Primary Care Provider Reason for Visit Reason Comments PRE-OP EXAM 07/21/21, Right eye retina. P [facility] [place]. Encounter Details Date Type Department Care Team Description 07/13/2021 Pre-Op Visit Kev Rodgers, Preop erative examination (Primary Dx); Medicine DO Essential hypertension [id number] [facility] [address] [facility] [place] [address] [place] [phone] Social History Tobacco Use Types Packs/Day Years [...] Sign Reading Time Taken Comments Blood Pressure 130/70 07/13/2021 7:52 AM CDT Pulse 84 07/13/2021 7:52 AM CDT Temperature - - Respiratory Rate - - Oxygen Saturation - - Inhaled Oxygen Concentration - - Weight 84.4 kg (186 lb) 07/13/2021 7:52 AM CDT Height 162.6 cm (5' 4) 07/13/2021 7:52 AM CDT Body Mass Index 31.93 07/13/2021 7:52 AM CDT documented in this encounter Patient Instructions Patient InstructionsMuKev bach DO - 07/13/2021 8:00 AM CDT Potassium any time beginning tomorrow. Schedule lab appointment Hold vitamin D and B12 beginning tomorrow. May resume after surgery Continue rest of medications with no changes Clarification - should be taking both valsartan and hydrochlorothiazide. Follow up with Dr. Heredia as scheduled Good luck with surgery documented in this encounter OR Notes H&P - Kev Quiros DO - 07/13/2021 8:00 AM CDT PREOPERATIVE ASSESSMENT Date of Service: 07/13/2021 Date of : 1940 Age: 80 y.o. Sex: female Preoperative Evaluation completed by: Kev Quiros DO Primary care physician: Veronica Heredia DO [phone] CHIEF COMPLAINT Pre-Operative Evaluation ANTICIPATED PROCEDURE Chief Complaint Patient presents with ??? PRE-OP EXAM 07/21/21, Right eye retina. [facility]. HISTORY OF PRESENT ILLNESS Michele Angulo is a 80 y.o. female w/ PMH of HTN who presents for preoperative evaluation prior to R retina surgery on 07/21/21 at [facility] Denies personal history of TIA/stroke, DM, renal disease, CAD, CHF Able to walk up a flight of stairs without symptoms Denies NSAID use Denies any change in her health history since pre-op done with PCP on 05/10/21. Risk Factors/Review of Systems: (Please see flowsheets for details) Cardiovascular risks negative except for: HTN: Renal risks negative except for: Chronic Diuretic Use: Neuro risks negative except for: Neuropathy: GI risks negative except for: GERD: Pulmonary risks negative except for: Endocrine/Nutrition risks negative except for: Hematologic Disease risks negative except for: Other: endometrial CA Musculoskeletal/Skin risks negative except for: Mental Health risks negative except for: Code Status: Full Code, Other risk factors negative except for: Complete review of systems is otherwise negative. Patient Active Problem List Diagnosis ??? Essential hypertension (HRC) ??? Hyperlipidemia (HRC) ??? Esophageal reflux ??? Calculus of kidney ??? Endometrial cancer (HRC) ??? Hypothyroidism (HRC) Past Medical History: Diagnosis Date ??? Aspirin [...] cozaar ??? Obesity (HRC) 04/30/2006 LW Onset: [id number] ??? Postmenopausal 04/16/2015 resolved ??? Zoster Past Surgical History: Procedure Laterality Date ??? BUNIONECTOMY ??? HYSTERECTOMY total with BSO ??? SALPINGO-OOPHORECTOMY Bilateral Family History Problem Relation Age of Onset [...] ??? Cancer, Endometrial Negative Family History Social History Socioeconomic History ??? Marital status: [...] Social Determinants of Health Financial Resource Strain: ??? Difficulty of Paying Living Expenses: Food Insecurity: ??? Worried About Running Out of Food in the Last Year: ??? Ran Out of Food in the Last Year: Transportation Needs: ??? Lack of Transportation (Medical): ??? Lack of Transportation (Non-Medical): Physical Activity: ??? Days of Exercise per Week: ??? Minutes of Exercise per Session: Intimate Partner Violence: ??? Fear of Current or Ex-Partner: ??? Emotionally Abused: ??? Physically Abused: ??? Sexually Abused: Current Outpatient Medications Medication Sig Dispense Refill [...] 1 Capsule by mouth daily. 90 Capsule 0 ??? levothyroxine (SYNTHROID) 75 MCG tablet TAKE [...] by mouth daily. 90 Tablet 3 ??? valsartan (DIOVAN) 160 MG tablet Take 1 Tablet by mouth daily. 90 Tablet 3 No current facility-administered medications for this visit. Allergies Allergen Reactions ??? Contrast [Iodinated Diagnostic Agents] Anaphylaxis ??? Penicillins Hives ??? Sulfa Antibiotics Hives PHYSICAL EXAMINATION Pulse: 84 (07/13/21751) BP: 130/70 (07/13/21751) Height: 162.6 cm (5' 4) (07/13/21751) Weight: 84.4 kg (186 lb) (07/13/21751) General Appearance: Normal HEENT: Normal Neck: Normal Lungs: Normal Heart: Normal Abdomen: Normal Extremities: Normal Skin: Normal Neurologic: Normal TEST RESULTS AND DATE EKG done: No Labs done: Lab Results Component Value Date Potassium 4.0 07/14/2021 ASSESSMENT 1. Preoperative Assessment: This patient has been examined by me today and has been found to be a suitable candidate for surgery: Yes 2. Patient is a low risk patient for a(n) low risk procedure. she has 0 risk factors for adverse cardiac events. she is able to perform >4 METs. Will obtain potassium within 7 days of surgery but otherwise she can proceed to surgery without any further cardiac diagnostic testing. 3. Perioperative medication management - hold supplements 7 days prior to surgery - continue rest of medications including valsartan, HCTZ and metoprolol w/o change 4. HTN - normotensive today. Some confusion regarding her regimen. After discussion and chart review, appears she was previously on losartan-HCTZ combination pill. This was changed by PCP on 05/10/21 to losartan and HCTZ though separate pills. She ran out of her previous combination pill 1 week ago and has just been taking valsartan monotherapy, not the HCTZ for the past week. HCTZ refilled and she will resume this in addition to continuing the valsartan. Recommended f/u with PCP RECOMMENDATIONS AND PLAN Day of surgery testing: none Medication recommendations including insulin / diabetes: see above Additional screening recommended: no Consult (Cardiology/other): no Additional test results attached: none Recommend RT assessment post op for Oxygenation and ventilation monitoring: no Other: no - Do not eat anything after midnight the evening before your surgery. - It is OK to drink water or Gatorade up to 4 hours before your surgery. - You may take medicines before surgery with a small sip of water ABOVE RECOMMENDATIONS WERE REVIEWED WITH PATIENT: yes Kev Quiros DO 07/13/2021 documented in this encounter Plan of Treatment Not on filedocumented as of this encounter Results Potassium (07/14/2021 8:09 AM CDT) P athologist Signature Potassium 4.0 3.5 - 5.1 07/14/2021 [facility] mmol/L 1:09 PM CDT LABORATORY Specimen Anatomical Collection Method / Collection Time Recei la Time (Source) Location / Volume Laterality Blood Venipuncture / 07/14/2021 8:09 07/14/2021 8:09 Unknown AM CDT AM CDT Kev Quiros DO LAB_1 Performing Organization Address City/State/ZIP Code Phon e Number [facility] [address] [place] [address] documented in this encounter Visit Diagnoses Diagnosis Preoperative examination - Primary Preoperative examination, unspecified Essential hypertension (HRC) Unspecified essential hypertension documented in this encounter Care Teams Senior Sas Programmer Relationship Specialty Start Date End Date Veronica Heredia DO PCP - General Family Practice 03/22/17 [address] [facility] [place] [address] documented as of this encounter
--- OUTSIDE RECORDS SUMMARY | 2022-08-15 14:51 | XMS_ITS | Encounter Summary ---
:1940 Author Organization [facility] Address [address] [place] [address] Care Team Providers Name Role Phone Veronica Heredia DO Primary Care Provider Reason for Visit Reason Comments PRE-OP EXAM Cataract Surgery at [facility] in [place] R eye 7.20.21, L eye 8.3.21 Dr. Baudilio boggs Encounter Details Date Type Department Care Team Description 05/10/2021 Pre-Op Visit Sawyer Hernandez Veronica Heredia, Preoperat lynne examination (Primary Dx); Medicine DO Age-related cataract of both eyes, unspe cified age-related cataract type; [id number] [facility] [address] [facility] tia hypertension; [address] [place] [address] [place], [place] [phone] Social History Tobacco Use Types Packs/Day Years [...] Sign Reading Time Taken Comments Blood Pressure 125/75 05/10/2021 12:23 PM CDT Pulse 71 05/10/2021 12:23 PM CDT Temperature - - Respiratory Rate - - Oxygen Saturation - - Inhaled Oxygen Concentration - - Weight 86.4 kg (190 lb 6.4 oz) 05/10/2021 12:23 PM CDT Height 162.3 cm (5' 3.9) 05/10/2021 12:23 PM CDT Body Mass Index 32.79 05/10/2021 12:23 PM CDT documented in this encounter Patient Instructions Patient InstructionsVeronica Heredia DO - 05/10/2021 12:30 PM CDT Hold multivitamins, fish oil and herbal supplements starting one week prior to surgery. Please call the surgeon to reschedule if become ill prior to surgery. Do not eat anything after midnight the evening before your surgery. It is OK to drink water or Gatorade up to 4 hours before your surgery. You may take medicines before surgery with a small sip of water. documented in this encounter OR Notes H&P - Veronica Heredia DO - 05/10/2021 12:30 PM CDT PREOPERATIVE ASSESSMENT Date of Service: 05/10/2021 Date of : 1940 Age: 80 y.o. Sex: female Preoperative Evaluation completed by: Veronica Heredia DO Primary care physician: Veronica Heredia DO [phone] CHIEF COMPLAINT Pre-Operative Evaluation ANTICIPATED PROCEDURE Chief Complaint Patient presents with ??? PRE-OP EXAM Cataract Surgery at [facility] in [place] R eye 7.., L eye 8.3. Dr. Johnston HISTORY OF PRESENT ILLNESS This is a 80-year-old female here for preop evaluation with plan for cataract extraction right eye on 05/24/2021 and left eye on 06/07/2021 at [facility] in [place]. I recently saw her for paresthesias in February, diagnosed B12 deficiency, she has been taking B12 since March 08, with resolution of symptoms since starting this. Risk Factors/Review of Systems: (Please see flowsheets for details) Cardiovascular risks negative except for: HTN: Tolerates greater than 4 METs of exercise without chest symptoms. No chest symptoms. Renal risks negative except for: Chronic Diuretic Use: Neuro risks negative except for: GI risks negative except for: Pulmonary risks negative except for: Endocrine/Nutrition risks negative except for: Hematologic Disease risks negative except for: Musculoskeletal/Skin risks negative except for: Mental Health [...] kidney right side diagnosed CT scan in [place] asymptomatic 04/18/2016 ??? Endometrial cancer (HRC) 05/02/2018 ??? H/O colonoscopy 2007 due 201704/16/2015 ??? Hyperlipidemia 07/12/2005 takes zocor ??? Hypertension 04/11/2003 takes atenolol cozaar ??? Obesity (HRC) 04/30/2006 LW Onset: [id number] ??? Postmenopausal 04/16/2015 resolved ??? Zoster Past [...] Cancer, Endometrial Negative Family History Social History Tobacco Use ??? Smoking status: Never Smoker ??? Smokeless tobacco: Never Used Substance Use Topics ??? Alcohol use: Yes Comment: Alcoholic Drinks/day: 1-2 x per year Current Outpatient Medications Medication Sig Note Dispense Refill ??? acetaminophen (TYLENOL) 325 MG tablet Take 325-650 mg by mouth every 4 hours as needed for Pain. ??? cholecalciferol (VITAMIN D3) 1000 units tablet Take 1,000 Units by mouth daily. ??? cyanocobalamin (VITAMIN B12) 1000 MCG tablet Take 1 Tablet by mouth daily. 90 Tablet 3 ??? hydroCHLOROthiazide 12.5 MG capsule Take 1 Capsule by mouth daily. 90 Capsule 2 ??? ketorolac (ACULAR) 0.5 % eye drop solution PLEASE SEE ATTACHED FOR DETAILED DIRECTIONS 05/10/2021:For surgery ??? levothyroxine (SYNTHROID) 75 MCG tablet Take 1 Tablet by mouth daily. 90 Tablet 3 ??? losartan (COZAAR) 100 MG tablet Take 1 Tablet by mouth daily. 90 Tablet 2 ??? metoprolol succinate (TOPROL XL) 25 MG 24 hour release tablet Take 1 Tab by mouth daily. Take with Toprol XL 50 mg tab to equal 75 mg. 90 Tablet 3 ??? metoprolol succinate (TOPROL XL) 50 MG 24 hour release tablet Take 1 Tablet by mouth daily. 90 Tablet 3 ??? moxifloxacin (VIGAMOX) 0.5 % eye drop solution START 1 DAY BEFORE SURGERY INSTILL 1 DROP IN OPERATIVE EYE 4X/DAY. USE UNTIL EMPTY, MAX 4WKS 05/10/2021: For surgery ??? simvastatin (ZOCOR) 20 MG tablet Take 1 Tablet by mouth daily. 90 Tablet 3 No current facility-administered medications for this visit. Allergies Allergen Reactions ??? Contrast [Iodinated Diagnostic Agents] Anaphylaxis ??? Penicillins Hives ??? Sulfa Antibiotics Hives PHYSICAL EXAMINATION Pulse: 71 (05/10/21 1223) BP: 125/75 (05/10/21 1223) Height: 5' 3.9 (162.3 cm) (05/10/21 1223) Weight: 190 lb 6.4 oz (86.4 kg) (05/10/21 1223) BMI: 32.79 (05/10/21 1223) General Appearance: Normal HEENT: Normal EXCEPT FOR bilateral cataracts Neck: Normal Lungs: Normal Heart: Normal Abdomen: Normal Extremities: Normal Skin: Normal Neurologic: Normal TEST RESULTS AND DATE EKG done: No Labs done: No. Lab Results Component Value Date Creatinine 0.91 03/01/2021 Lab Results Component Value Date Potassium 4.1 02/22/2021 ICD-10-CM 1. Preoperative examination Z01.818 2. Age-related cataract of both eyes, unspecified age-related cataract type H25.9 3. Essential hypertension (HRC) I10 hydroCHLOROthiazide 12.5 MG capsule losartan (COZAAR) 100 MG tablet 4. Vitamin B12 deficiency E53.8 ASSESSMENT 1. Preoperative Assessment: This patient has been examined by me today and has been found to be a suitable candidate for surgery: Yes 2. Hold herbal, fish oil and OTC supplements for 7 days prior to surgery. If acutely ill contact [facility]. 3. BP well controlled. Refills provided. 4. Check B12 level at 3 months, due June. RECOMMENDATIONS AND PLAN Day of surgery testing: none Medication recommendations including insulin / diabetes: no adjustments needed. Additional screening recommended: no Consult (Cardiology/other): no [...] ABOVE RECOMMENDATIONS WERE REVIEWED WITH PATIENT: yes Veronica Heredia DO 05/10/2021 documented in this encounter Plan of Treatment Not on filedocumented as of this encounter Visit Diagnoses Diagnosis Preoperative examination - Primary Preoperative examination, unspecified Age-related cataract of both eyes, unspe cified age-related cataract type Essential hypertension (HRC) Unspecified essential hypertension Vitamin B12 deficiency (HRC) Other B-complex deficiencies documented in this encounter Care Teams Home Health Specialist Relationship Specialty Start Date End Date Veronica Heredia DO PCP - General Family Practice 03/22/17 [address] [facility] [place] [address] documented as of this encounter
--- OUTSIDE RECORDS SUMMARY | 2022-08-15 14:52 | XMS_ITS | Encounter Summary ---
:1940 Author Organization [facility] Address [address] [place] [address] Care Team Providers Name Role Phone Veronica Heredia DO Primary Care Provider Reason for Visit Reason Comments Appt. Work In Request APWI for today ,medication r eview, Levothyroxine, (intrermittent dizzy) Encounter Details Date Type Department Care Team Description 06/06/2019 Nurse Triage Sawyer Hernandez Veronica Heredia, Appt. Wor k In Request Medicine DO (APWI for today [id number] [facility] [address] [facility], [address] [place], [place] [address] [place], [place] (intrermittent dizzy)) [phone] [id number] Social History Tobacco Use Types Packs/Day Years [...] documented as of this encounter Nursing Notes Amy Herrmann RN - 06/06/2019 2:13 PM CDT Spoke to patient. States past 2 days she has had one epsicode each day of dizziness. Stood up from chair and walked to kitchen, had to stand still for a moment holding onto counter before dizziness went away. States she had episodes of lightheadedness previously and for past 2 weeks had not had any and was feeling good. Denies chest pain,difficulty breathing or weakness or numbness. Denies headache. BP machine at home not working, has been her usual when checks at stores. States she is drinking water. Reviewed getting up slowly and if dizziness does not go away should be seen in UC. Reason for Disposition ? ? Dizziness not present now, but is a chronic symptom (recurrent or ongoing AND lasting > 4 weeks) Protocols used: [id number] Problem list reviewed as related to this call. Mary Jaime - 06/06/2019 1:14 PM CDT Appointments - Same Day/Sooner Patient would like appointment with her provider. Current PCP: Veronica Heredia, DO If requested clinician is unavailable, is it okay to be seen by another clinician? No What is the patient requesting to be seen for? APWI for today ,medication review, Levothyroxine, (intrermittent dizzy) Wants/Needs to be seen within: today Additional comments (related to the above concern): If there are questions regarding your request, is it okay to leave detailed message on your voicemail? Yes (Advise caller that the PN call back number will end with [phone] or unknown) (Please schedule next available appointment if patient is willing, in case work- in is not possible) Please route to: Appropriate pool per call routing grid documented in this encounter Plan of Treatment Not on filedocumented as of this encounter Visit Diagnoses Not on filedocumented in this encounter Care Teams Air Brush Artist Relationship Specialty Start Date End Date Veronica Heredia DO PCP - General Family Practice 03/22/17 [address] [facility] [address] [place], [place] [address] documented as of this encounter
--- OUTSIDE RECORDS SUMMARY | 2022-08-15 14:52 | XMS_ITS | Encounter Summary ---
:1940 Author Organization [facility] Address [address] [address] Care Team Providers Name Role Phone Veronica Heredia DO Primary Care Provider Reason for Visit Reason Comments Medication Questions Losartan Encounter Details Date Type Department Care Team Description 07/28/2019 Telephone [facility] Veronica Heredia, Medication Questions [id number] [facility] (Losartan) [address] [address] [place] [address] [phone] [place] [address] Social History Tobacco Use Types Packs/Day Years [...] encounter Nursing Notes Amy Herrmann RN - 07/29/2019 9:38 AM CDT Spoke to patient and given message from Kandi paez. Patient verbalized understanding and agreed toplan. Kandi Paez, PharmD - 07/29/2019 9:26 AM CDT The losartan recall is due to contamination from specific manufacturers. The active ingredient, losartan, has not been linked to cancer. I recommend patient follow up with her pharmacy. They can let her know if she has losartan from a contaminated manufacturers or not. Many of the losartan products on the market right now have not been impacted by the recall, but it is always important to make sure that your product did not come from 1of the manufacturers with contamination problems. Yaritza Pimentel, RN - 07/28/2019 6:56 PM CDT Clinician Action: New Order Medication Clinician Next Step: Route to [facility] to follow up, Patient IS expecting a call back from care team and Close encounter Specific Request(s): 1. Pt is requesting her Losartan be changed to something else, she heard it is a cancer causing mediction. Please advise. Pt calling, about her Losartan, saw on TV that is causes cancer and would like to have it changed tosomething else. Reviewed drug allergies and pt pharm choice: [address], [place], [place]. Pt can be reached at [phone]. Will route to clinician. documented in this encounter Plan of Treatment Not on filedocumented as of this encounter Visit Diagnoses Not on filedocumented in this encounter Care Teams Acoustical Carpenter Relationship Specialty Start Date End Date Veronica Heredia DO PCP - General Family Practice 03/22/17 [address] [facility] [address] [place] [address] documented as of this encounter
--- OUTSIDE RECORDS SUMMARY | 2022-08-15 14:52 | XMS_ITS | Encounter Summary ---
:1940 Author Organization [email or web address] Address [address] [place] [address] Care Team Providers Name Role Phone Veronica Heredia DO Primary Care Provider Reason for Referral (Routine) - Closed Specialty Diagnoses / Procedures Referred By Contact Refer red To Contact Diagnoses Positive FIT (fecal immunochemical test) Veronica Heredia DO Procedures Endoscopy, colon, diagnostic [address] [facility] [address] [place] [address] Referral ID Status Reason Start Date Expiration Date Visits Requ ested Visits Authorized [id number] Closed 06/16/2019 09/14/2020 1 1 Reason for Visit Reason Comments RESULTS, TEST positive fit Encounter Details Date Type Department Care Team Description 06/16/2019 Telephone [facility] [address] Veronica Heredia, MANDO ALBERTO, TEST (positive Gastroenterology DO fit) [address] [address] [place], [place] [address] [address] [place] [phone] Social History Tobacco Use Types Packs/Day Years [...] as of this encounter Plan of Treatment Scheduled Orders Name Type Priority Associated Diagnoses Order S chedule Endoscopy, colon, GI Routine Positive FIT (fecal 1 O ccurrences starting diagnostic immunochemical test) 019 until 06/16/2021 documented as of this encounter Visit Diagnoses Diagnosis Positive FIT (fecal immunochemical test) - Primary documented in this encounter Care Teams Medical Services Manager Relationship Specialty Start Date End Date Veronica Heredia DO PCP - General Family Practice 03/22/17 [address] [facility] [place] [address] documented as of this encounter
--- OUTSIDE RECORDS SUMMARY | 2022-08-15 14:52 | XMS_ITS | Encounter Summary ---
:1940 Author Organization [facility] Address [address] [place] [address] Care Team Providers Name Role Phone Robleskarina Veronica Oliver DO Primary Care Provider Encounter Details Date Type Department Care Team Description 08/05/2019 Lab Visit [facility] Heat intolerance; [address] [facility] Hyp [place]thy[place], [place] [address] Social History Tobacco Use Types [...] Associated Diagnosis Comme nts TSH, SENSITIVE Routine 08/05/2019 10:55 AM Heat intoler ance Results for this (WITH REFLEX) CDT Hypothyroidism, procedure a re in unspecified type the results section. documented in this encounter Results TSH with Free T4 (if TSH Abnormal) (08/05/2019 10:55 AM CDT) P athologist Signature TSH, Reflex 1.01 0.30 - 4.50 08/05/2019 [facility] uIU/mL 12:57 PM CDT LABORATORY Specimen Anatomical Collection Method / Collection Time Recei la Time (Source) Location / Volume Laterality Blood Venipuncture / 08/05/2019 10:55 9 Unknown AM CDT 10:55 AM CDT Narrative [facility] - 08/05/2019 12:57 PM CDT Lab will automatically reflex to Free T4 when TSH results are <0.30 uIU/mL or >4.50 mIU/mL. Mikey Vergara MD LAB_1 Performing Organization Address City/State/ZIP Code Phon e Number [facility] [address] [place] [address] documented in this encounter Visit Diagnoses Diagnosis Heat intolerance Unspecified effects of heat and light Hypothyroidism, unspecified type (HRC) documented in this encounter Care Teams Hydroelectric Machinery Mechanic Helper Relationship Specialty Start Date End Date Veronica Heredia DO PCP - General Family Practice 03/22/17 [address] [facility] [place] [address] documented as of this encounter
--- OUTSIDE RECORDS SUMMARY | 2022-08-15 14:52 | XMS_ITS | Encounter Summary ---
:1940 Author Organization [email or web address] Address [address] [place] [address] Care Team Providers Name Role Phone Veronica Heredia DO Primary Care Provider Reason for Referral (Routine) - Closed Specialty Diagnoses / Procedures Referred By Contact Refer red To Contact Diagnoses Positive FIT (fecal immunochemical test) Veronica Heredia DO Procedures Endoscopy, Colon, Screening/Diagnostic [address] [facility] [place] [address] Referral ID Status Reason Start Date Expiration Date Visits Requ ested Visits Authorized [id number] Closed 06/16/2019 09/14/2020 1 1 Reason for Visit Reason Comments RESULTS, TEST Encounter Details Date Type Department Care Team Description 06/16/2019 Telephone [facility] Veronica Heredia, RESULTS, TEST [address] [place] [address] [place] [address] [phone] (Wo rk) Social History Tobacco Use Types [...] documented as of this encounter Nursing Notes Priscilla Mas RN - 06/16/2019 1:11 PM CDT Informed Pt of results below, warm trans to schedule. Veronica Heredia DO - 06/16/2019 12:39 PM CDT Please call let her know that her Fit test was positive for blood in her stool, a colonoscopy has been ordered to further evaluate this. documented in this encounter Plan of Treatment Not on filedocumented as of this encounter Results Endoscopy, Colon, Screening/Diagnostic (07/16/2019 12:45 PM CDT) Specimen (Source) Anatomical Collection Method Collection Time Re ceived Time Location / / Volume Laterality 07/16/2019 12:45 PM CDT Narrative [facility]) - 07/16/2019 12:45 PM CDT Patient Name: Michele Angulo Procedure Date: 07/16/2019 12:45 PM Date of : 1940 Admit Type: Outpatient Age: 78 Gender: Female Note Status: Finalized Attending MD: Joao Garrett MD Procedure: ? Colonoscopy Indications: ? Last colonoscop y: March 2008, Positive ? fecal imm unochemical test Providers: ? Joao Garrett MD, Maureen Mak RN Referring MD: ?Veronica Heredia MD Medicines: ? Fentanyl 150 m icrograms IV, Midazolam ? 2.5 mg IV , Oxygen 2l/min per nasal ? cannula, CO2 insufflation Complications: ? No immediate com plications. Procedure: ? After I obtain ed informed consent, ? the scope was passed under direct ? vision. T hroughout the procedure, the ? patient's blood pressure, pulse, and ? oxygen sa turations were monitored ? continuou sly. The [id number] was ? introduce d through the anus and ? advanced to the cecum, identified by ? appendice al orifice and ileocecal ? valve. Th e patient tolerated the ? procedure well. The quality of the ? bowel pre paration was good. Findings: ? A 3 mm polyp was found in the cec um. The polyp was ? semi-sessile. The polyp was remov ed with a cold ? biopsy forceps. Resection and ret rieval were complete. ? A 6 mm polyp was found in the asc ending colon. The ? polyp was semi-sessile. The polyp was removed with a ? cold snare. Resection and retriev al were complete. To ? stop active bleeding, one hemosta tic clip was ? successfully placed. There was no bleeding at the end ? of the procedure. ? Three semi-sessile polyps were fo und in the proximal ? descending colon and distal trans verse colon. The ? polyps were 3 to 4 mm in size. Th gege polyps were ? removed with a cold biopsy forcep s. Resection and ? retrieval were complete. ? Many diverticula were found in th e sigmoid colon and ? descending colon. ? The exam was otherwise without ab normality. Moderate Sedation: ? Moderate (conscious) sedation was personally ? administered by the endoscopist. The following ? parameters were monitored: oxygen saturation, heart ? rate, blood pressure, and respons e to care. Total ? physician intraservice time was 2 5 minutes. Impression: ?- One 3 mm silvia yp in the cecum, ? removed w ith a cold biopsy forceps. ? Resected and retrieved. ? - One 6 m m polyp in the ascending ? colon, re moved with a cold snare. ? Resected and retrieved. Clip was ? placed. ? - Three 3 to 4 mm polyps in the ? proximal descending colon and in the ? distal tr ansverse colon, removed with ? a cold bi opsy forceps. Resected and ? retrieved . ? - Diverti culosis in the sigmoid colon ? and in th e descending colon. ? - The exa mination was otherwise ? normal. Recommendation: ?- Await patholog y results. ? - Repeat colonoscopy after studies ? are compl ete for surveillance based ? on pathol ogy results. Procedure Code(s): ?? --- Professional - -- ? 41082, Co lonoscopy, flexible; with ? removal o f tumor(s), polyp(s), or ? other les ion(s) by snare technique ? 46425, 59 , Colonoscopy, flexible; ? with biop sy, single or multiple ? 50971, Mo derate sedation; each ? additiona l 15 minutes intraservice ? time ? G0500, Mo derate sedation services ? provided by the same physician or ? other [facility] health care ? professio nal performing a ? gastroint estinal endoscopic service ? that rojelio tion supports, requiring the ? presence of an independent trained ? observer to assist in the monitoring ? of the meli bledsoe's level of ? conscious ness and physiological ? status; i nitial 15 minutes of ? intra-ser vice time; patient age 5 ? years or older (additional time may ? be report ed with 26[address], as ? appropria te) Diagnosis Code(s): ?? --- Professional - -- ? D12.0, Be nign neoplasm of cecum ? D12.2, Be nign neoplasm of ascending ? colon ? D12.4, Be nign neoplasm of descending ? colon ? D12.3, Be nign neoplasm of transverse ? colon (he patic flexure or splenic ? flexure) ? R19.5, Ot her fecal abnormalities ? K57.30, D iverticulosis of large ? intestine without perforation or ? abscess w ithout bleeding CPT copyright 2018 [employer]. All rights reserved. The codes documented in this report are preliminary and upon international accounting manager review may be revised to meet current compliance requirements. Joao Garrett MD 07/16/2019 1:47:49 PM This document has been electronically si gned. Number of Addenda: 0 Note Initiated On: 07/16/2019 12:45 PM ? Endoscopy Report Procedure Note Joao Garrett MD - 07/16/2019Formatti ng of this note might be different from the original. Patient Name: Michele Angulo Procedure Date: 07/16/2019 12:45 PM Date of : 1940 Admit Type: Outpatient Age: 78 Gender: Female Note Status: Finalized Attending MD: Joao Garrett MD Procedure: Colonoscopy Indications: Last colonoscopy: March 2008, Positive fecal immunochemical test Providers: Joao Garrett MD, Maureen Mak, RN Referring MD: Veronica Heredia MD Medicines: Fentanyl 150 micrograms IV, M idazolam 2.5 mg IV, Oxygen 2l/min per nasal cannula, CO2 insufflation Complications: No immediate complication s. Procedure: After I obtained informed con sent, the scope was passed under direct vision. Throughout the procedure, the patient's blood pressure, pulse, and oxygen saturations were monitored continuously. The [id number] was introduced through the anus and advanced to the cecum, identified by appendiceal orifice and ileocecal valve. The patient tolerated the procedure well. The quality of the bowel preparation was good. Findings: A 3 mm polyp was found in the cecum. Th e polyp was semi-sessile. The polyp was removed wit h a cold biopsy forceps. Resection and retrieval were complete. A 6 mm polyp was found in the ascending colon. The polyp was semi-sessile. The polyp was r emoved with a cold snare. Resection and retrieval wer e complete. To stop active bleeding, one hemostatic cl ip was successfully placed. There was no bleed ing at the end of the procedure. Three semi-sessile polyps were found in the proximal descending colon and distal transverse colon. The polyps were 3 to 4 mm in size. These po lyps were removed with a cold biopsy forceps. Res ection and retrieval were complete. Many diverticula were found in the sigm oid colon and descending colon. The exam was otherwise without abnormal ity. Moderate Sedation: Moderate (conscious) sedation was perso bette administered by the endoscopist. The fo llowing parameters were monitored: oxygen satur ation, heart rate, blood pressure, and response to c are. Total physician intraservice time was 25 daysi percy. Impression: - One 3 mm polyp in the cecu m, removed with a cold biopsy forceps. Resected and retrieved. - One 6 mm polyp in the ascending colon, removed with a cold snare. Resected and retrieved. Clip was placed. - Three 3 to 4 mm polyps in the proximal descending colon and in the distal transverse colon, removed with a cold biopsy forceps. Resected and retrieved. - Diverticulosis in the sigmoid colon and in the descending colon. - The examination was otherwise normal. Recommendation: - Await pathology result s. - Repeat colonoscopy after studies are complete for surveillance based on pathology results. Procedure Code(s): --- Professional --- 05739, Colonoscopy, flexible; with removal of tumor(s), polyp(s), or other lesion(s) by snare technique 60107, 59, Colonoscopy, flexible; with biopsy, single or multiple 11436, Moderate sedation; each additional 15 minutes intraservice time G0500, Moderate sedation services provided by the same physician or other qualified health plant care worker performing a gastrointestinal endoscopic service that sedation supports, requiring the presence of an independent trained observer to assist in the monitoring of the patient's level of consciousness and physiological status; initial 15 minutes of intra-service time; patient age 5 years or older (additional time may be reported with 90125, as appropriate) Diagnosis Code(s): --- Professional --- D12.0, Benign neoplasm of cecum D12.2, Benign neoplasm of ascending colon D12.4, Benign neoplasm of descending colon D12.3, Benign neoplasm of transverse colon (hepatic flexure or splenic flexure) R19.5, Other fecal abnormalities K57.30, Diverticulosis of large intestine without perforation or abscess without bleeding CPT copyright 2018 [employer]. All rights reserved. The codes documented in this report are preliminary and upon international accounting manager review may be revised to meet current compliance requirements. Joao Garrett MD 07/16/2019 1:47:49 PM This document has been electronically si gned. Number of Addenda: 0 Note Initiated On: 07/16/2019 12:45 PM Endoscopy Report Veronica Heredia DO PN [facility] PROCEDURE ORDERABLES Performing Organization Address City/State/ZIP Code Phon e Number [facility] ([facility]) [facility] [place], [place] documented in this encounter Visit Diagnoses Diagnosis Positive FIT (fecal immunochemical test) - Primary Positive FIT (fecal immunochemical test) documented in this encounter Care Teams Radiology Asst Relationship Specialty Start Date End Date Veronica Heredia DO PCP - General Family Practice 03/22/17 [address] [facility] [place] [address] documented as of this encounter
--- OUTSIDE RECORDS SUMMARY | 2022-08-15 14:52 | XMS_ITS | Encounter Summary ---
:1940 Author Organization [facility] Address [address] [place] [address] Care Team Providers Name Role Phone Veronica Heredia DO Primary Care Provider Reason for Visit Reason Comments Follow-up ER dizziness Encounter Details Date Type Department Care Team Description 06/11/2019 Office Visit Sawyer Hernandez Veronica Heredia, Benign pa roxysmal positional vertigo, unspecified laterality (Primary Dx); Medicine DO Essential hypertension; [address] [facility] [address] [facility] Hypot hyroidism, unspecified type; [address] [facility] IGT (impaired glucose tolerance); [place] [address] [place], [place] Screening for colon cancer [phone] [id number] Social History Tobacco Use Types Packs/Day Years [...] Sign Reading Time Taken Comments Blood Pressure 128/78 06/11/2019 9:59 AM CDT Pulse 70 06/11/2019 9:59 AM CDT Temperature - - Respiratory Rate - - Oxygen Saturation - - Inhaled Oxygen Concentration - - Weight 89.8 kg (198 lb) 06/11/2019 9:59 AM CDT Height - - Body Mass Index 34.8 04/02/2019 3:09 PM CDT documented in this encounter Progress Notes Veronica Heredia, - 06/11/2019 10:00 AM CDT CHIEF COMPLAINT: Chief Complaint Patient presents with ??? Follow-up ER dizziness SUBJECTIVE: This is a 78 y.o. female patient who presents emergency department follow-up. She was seen there on 06/08/2019 for dizziness. She had ECG, troponins, MRI/MRA without new findings or findings to explainher symptoms. Symptoms were exacerbated by head movement, she describes them as rotational motion, lasted briefly and then resolved spontaneously, no other associated neurologic symptoms. No falls. No nausea or vomiting. After being in the emergency department, she read about the Agnieszka maneuver and she did this at home with resolution of her symptoms this past weekend. She has had no recurrence of her symptoms the last 2 days. She has no chest symptoms- she denies chest pain, difficulty breathing, dyspnea on exertion, palpitations, presyncope or syncope. She denies weakness, numbness, tingling, speech or swallow changes. The emergency department provider recommended she get a Holter, Michele wonders if she still needs to do this since she is asymptomatic. History of hypertension, hypothyroidism and impaired glucose tolerance, recent lab values all acceptable. She felt that her thyroid replacement was going well, and this was checked in the ED, her TSH was 0.70. She will be going down to [place] in July where she lives for the winter. Currently she feels well and is asymptomatic. No recent or acute illness. PAST MEDICAL HISTORY : Patient Active Problem List Diagnosis ??? Essential hypertension ??? Hyperlipidemia ??? Esophageal reflux ??? Calculus of kidney ??? Endometrial cancer (HRC) MEDICATIONS : Current Outpatient Medications Medication Sig Dispense Refill ??? acetaminophen (TYLENOL) 325 MG tablet Take 325-650 mg by mouth every 4 hours as needed for Pain. ??? cholecalciferol (VITAMIN D3) 1000 units tablet Take 1,000 Units by mouth daily. ??? levothyroxine (SYNTHROID) 88 MCG tablet Take 1 Tablet by mouth [...] ??? Penicillins Hives ??? Sulfa Antibiotics Hives OBJECTIVE : Vital Signs: BP 128/78 (BP Location: Left Arm, BP Cuff Size: Large) Pulse 70 Wt 198 lb (89.8 kg) BMI 34.80 kg/m?? Gen.: Alert, cooperative in no acute distress. Head: Normocephalic, atraumatic. Eyes: No scleral icterus or conjunctivitis present. EOMI. PERRLA. No nystagmus. Nose: Patent, without deformity. Throat: Moist mucous membranes without lesions, erythema, or exudate. Neck: Supple, without masses, lymphadenopathy or tenderness. Respiratory: Normal respiratory rate and effort. Lungs are clear to auscultation with good breath sounds bilaterally. No wheeze or crackle. Heart: RRR without murmurs, rubs, or gallops. Psych: No evidence of overt anxiety or depression. Extremities: No cyanosis, clubbing or edema. Musculoskeletal: Normal tone. Skin: No pallor. Neurologic: Alert, non-focal. Cranial nerves 2-12 intact. Normal strength. Normal sensation. Normal gait. ECG- Poor data quality Normal sinus rhythm Normal ECG When compared with ECG of 13-MAR-2019 14:53, No significant change was found Confirmed by JERARDO VIDES ([id number]) on 06/08/2019 4:19:43 PM MRI- 06/08/2019 IMPRESSION: ?? 1. No evidence for acute infarct. 2. Stable mild chronic microvascular ischemic changes and mild volume loss. 3. No abnormal intra-axial enhancement. 4. The cerebellopontine angle cisterns and internal auditory canals are normal in appearance. MRA-- 06/08/2019 IMPRESSION: ??No evidence of intracranial aneurysm or stenosis. ?? Lab Results Component Value Date Creatinine 0.92 06/08/2019 Glucose 113 (H) 06/08/2019 Bedside Blood Glucose Test 104 06/12/2018 CO2 27 06/08/2019 Chloride 103 06/08/2019 Potassium 3.5 06/08/2019 Sodium 141 06/08/2019 BUN 16 06/08/2019 Calcium 9.5 06/08/2019 GFR, Estimated 60 (L) 06/08/2019 GFR, Est If >60 06/08/2019 Lab Results Component Value Date TSH, Sensitive 0.70 06/08/2019 Lab Results Component Value Date Hemoglobin A1C 6.0 (H) 03/12/2019 Lab Results Component Value Date WBC 5.6 06/08/2019 RBC 4.32 06/08/2019 Hemoglobin 12.9 06/08/2019 HCT 39.1 06/08/2019 MCV 90.5 06/08/2019 RDW 11.8 (L) 06/08/2019 Platelets 178 06/08/2019 ASSESSMENT/PLAN: ICD-10-CM 1. Benign paroxysmal positional vertigo, unspecified laterality H81.10 2. Essential hypertension I10 3. Hypothyroidism, unspecified type E03.9 4. IGT (impaired glucose tolerance) R73.02 5. Screening for colon cancer Z12.11 FIT Colon Rectal Cancer Screening 1. Probable BPPV, now resolved. Continue Agnieszka maneuver as needed, if new symptoms or neurologic symptoms arise she will need re-evaluation. PT offered for this vestibular rehab, she did not feel this was necessary currently. 2. Monitoring labs acceptable. Continue current regimen of levothyroxine and antihypertensives. Return to clinic for follow-up in 6 months. 3. Colon cancer screening discussed, she preferred Fit testing. 4. Consideration Shingrix vaccine, not currently in stocking clinic 5. RTC prn and q6mo. This was dictated using a voice recognition program, typographical and sound like errors may occur. documented in this encounter Plan of Treatment Not on filedocumented as of this encounter Results (ABNORMAL) FIT Colon Rectal Cancer Screening (06/13/2019 10:01 AM CDT) Patholo gist Method Time Signature FIT Specimen Positive (A) Negative 06/13/2019 [facility] 1 10:33 AM CDT [address] Specimen Anatomical Collection Method Collection Time Receive d Time (Source) Location / / Volume Laterality Stool 06/13/2019 10:01 06/13/2019 AM CDT 10:01 AM CDT Veronica Heredia DO LAB_1 Performing Organization Address City/State/ZIP Code Phon e Number [facility] [address] [place], [place] [address] [address] documented in this encounter Visit Diagnoses Diagnosis Benign paroxysmal positional vertigo, un specified laterality - Primary Essential hypertension (HRC) Unspecified essential hypertension Hypothyroidism, unspecified type (HRC) IGT (impaired glucose tolerance) Impaired glucose tolerance test Screening for colon cancer Special screening for malignant neoplasm s, colon documented in this encounter Care Teams Inhalation Therapy Teacher Relationship Specialty Start Date End Date Veronica Heredia DO PCP - General Family Practice 03/22/[address] [address] [facility] [place] [address] documented as of this encounter
--- OUTSIDE RECORDS SUMMARY | 2022-08-15 14:52 | XMS_ITS | Encounter Summary ---
:1940 Author Organization [facility] Address [address] [place] [address] Care Team Providers Name Role Phone Veronica Heredia DO Primary Care Provider Reason for Visit Reason Comments Refill Losartan Potassium-HCTZ (HYZ AAR) 100-12.5 MG tablet [Pharmacy Med Name: LOSARTAN-HCTZ 100-12.5 MG TA B] Encounter Details Date Type Department Care Team Description 04/17/2020 Refill [facility] Veronica Heredia, DO Refill (Losartan [address] [facility] [address] [facility] Potassium-HCTZ (HYZAAR) Drive Ctr Dr 100-12.[place] [address] [place], [place] [Pharmacy Med Name: [phone] [id number] LOSARTAN-HCTZ 100-12.5 (Wo rk) MG TAB]) Social [...] encounter Nursing Notes Arash Jordan RN - 04/20/2020 9:45 AM CDT Renewed medication per medication refill protocol. Requested Prescriptions Signed Prescriptions Disp Refills ??? Losartan Potassium-HCTZ (HYZAAR) 100-12.5 MG tablet 90 Tablet 0 Sig: Take 1 Tablet by mouth daily. Authorizing Provider: VERONICA HEREDIA Ordering User: ARASH JORDAN Refused Prescriptions Disp Refills ??? Losartan Potassium-HCTZ (HYZAAR) 100-12.5 MG tablet [Pharmacy Med Name: LOSARTAN-HCTZ 100-12.5 MG TAB] 90 Tablet 0 Sig: TAKE 1 TABLET BY MOUTH EVERY DAY Refused By: ARASH JORDAN Reason for Refusal: Request Already Responded To By Other Means Interface, Out Surescripts Prov Query - 04/17/2020 2:23 AM CDT Losartan Potassium-HCTZ (HYZAAR) 100-12.5 MG tablet [Pharmacy Med Name: LOSARTAN-HCTZ 100-12.5 MG TAB] Medication started: 02/05/2019 Last ordered by VERONICA HEREDIA: 07/29/2019 (263 days ago) QTY: 90, Refills: 3, Sig: take 1 tablet by mouth daily. (changed but equivalent) -> The patient is requesting a renewal from a different pharmacy. -> Refill x 3 months (until due for a(n) Cr check, K check and Na check) Last qualifying visit: 06/11/2019 (with VERONICA HEREDIA) (A more recent visit (in Family Practice with SUSAN ELLIOTT) was found) Next scheduled visit: None SBP: 114 mm Hg on 08/05/2019 DBP: 78 mm Hg on 08/05/2019 Cr: 0.92 mg/dL on 06/08/2019 Na: 141 mEq/L on 06/08/2019 K: 3.5 mEq/L on 06/08/2019 Powered by [employer], Reference: [id number], 04/17/2020 2:23:30 AM CDT, Ezequiel: YURY LARRY REFILL ([id number]) documented in this encounter Plan of Treatment Not on filedocumented as of this encounter Visit Diagnoses Diagnosis Essential hypertension Unspecified essential hypertension documented in this encounter Care Teams Cad Design Engineer Relationship Specialty Start Date End Date Veronica Heredia DO PCP - General Family Practice 03/22/17 [address] [facility] [place] [address] documented as of this encounter
--- OUTSIDE RECORDS SUMMARY | 2022-08-15 14:52 | XMS_ITS | Encounter Summary ---
:1940 Author Organization [facility] Address [address] [place] [address] Care Team Providers Name Role Phone Veronica Heredia DO Primary Care Provider Reason for Referral (Routine) - Closed Specialty Diagnoses / Procedures Referred By Contact Refer red To Contact Diagnoses Positive FIT (fecal immunochemical test) Veronica Heredia, Procedures Endoscopy, Colon, Screening/Diagnostic [address] [address] Referral ID Status Reason Start Date Expiration Date Visits Requ ested Visits Authorized [id number] Closed 06/16/2019 09/14/2020 1 1 Reason for Visit (Routine) - Closed Specialty Diagnoses / Procedures Referred By Contact Refer red To Contact Diagnoses Positive FIT (fecal immunochemical test) Veronica Heredia, DO Procedures Endoscopy, Colon, Screening/Diagnostic [address] [place] [address] Referral ID Status Reason Start Date Expiration Date Visits Requ ested Visits Authorized [id number] Closed 06/16/2019 09/14/2020 1 1 Encounter Details Date Type Department Care Team Description 07/16/2019 [facility] Joao Garrett Positiv e FIT (fecal Encounter 6500 Endoscopy MD immunochemical test) [address] [place] [facility], [address] [place] [address] [phone] Social History Tobacco Use Types Packs/Day Years [...] Sign Reading Time Taken Comments Blood Pressure 143/89 07/16/2019 2:15 PM CDT Pulse 89 07/16/2019 2:15 PM CDT Temperature - - Respiratory Rate 14 07/16/2019 2:15 PM CDT Oxygen Saturation 96% 07/16/2019 2:15 PM CDT Inhaled Oxygen Concentration - - Weight 86.2 kg (190 lb) 07/16/2019 12:59 PM CDT Height 162.6 cm (5' 4) 07/16/2019 12:59 PM CDT Body Mass Index 32.61 07/16/2019 12:59 PM CDT documented in this encounter Medications at Time of Discharge Medication Sig Dispensed Refills Start Date End Date acetaminophen (TYLENOL) 325 Take 325-650 mg by 0 MG tablet mouth every 4 hours as needed for Pain. cholecalciferol (VITAMIN Take 1,000 Units 0 D3) 1000 units tablet by mouth daily. levothyroxine (SYNTHROID) Take 1 Tablet by 90 Tablet 3 050 07/201902/21/2020 88 MCG tabletIndications: mouth daily. Hypothyroidism, unspecified type (HRC) Losartan Potassium-HCTZ Take 1 Tablet by 90 Tablet 3 201807/29/2019 (HYZAAR) 100-12.5 MG mouth daily. tabletIndications: Essential hypertension (HRC) metoprolol succinate Take 1 Tab by 90 Tablet 3 02/05/2019 0 03/25/2020 (TOPROL XL) 25 MG 24 hour mouth daily. Take release tabletIndications: with Toprol XL 50 Essential hypertension mg tab to equal 75 (HRC) mg. metoprolol succinate Take 1 Tablet by 90 Tablet 3 9 03/25/2020 (TOPROL XL) 50 MG 24 hour mouth daily. release tabletIndications: Essential hypertension (HRC) simvastatin (ZOCOR) 20 MG Take 1 Tablet by 90 Tablet 3 01/201903/10/2020 tabletIndications: mouth daily. Hyperlipidemia, unspecified hyperlipidemia type (HRC) documented as of this encounter Procedure Notes Joao Garrett - 07/16/2019 12:45 PM CDT Patient Name: Michele Angulo Procedure Date: 07/16/2019 12:45 PM Date of : 1940 Admit Type: Outpatient Age: 78 Gender: Female Note Status: Finalized Attending MD: Joao Garrett MD Procedure: Colonoscopy Indications: Last colonoscopy: March 2008, Positive fecal immunochemical test Providers: Joao Garrett MD, Maureen Mak RN Referring MD: Veronica Heredia MD Medicines: Fentanyl 150 micrograms IV, Midazolam 2.5 mg IV, Oxygen 2l/min per nasal cannula, CO2 insufflation Complications: No immediate complications. Procedure: After I obtained informed consent, the scope was passed under direct vision. Throughout the procedure, the patient's blood pressure, pulse, and oxygen saturations were monitored continuously. The [id number] was introduced through the anus and advanced to the cecum, identified by appendiceal orifice and ileocecal valve. The patient tolerated the procedure well. The quality of the bowel preparation was good. Findings: A 3 mm polyp was found in the cecum. The polyp was semi-sessile. The polyp was removed with a cold biopsy forceps. Resection and retrieval were complete. A 6 mm polyp was found in the ascending colon. The polyp was semi-sessile. The polyp was removed with a cold snare. Resection and retrieval were complete. To stop active bleeding, one hemostatic clip was successfully placed. There was no bleeding at the end of the procedure. Three semi-sessile polyps were found in the proximal descending colon and distal transverse colon. The polyps were 3 to 4 mm in size. These polyps were removed with a cold biopsy forceps. Resection and retrieval were complete. Many diverticula were found in the sigmoid colon and descending colon. The exam was otherwise without abnormality. Moderate Sedation: Moderate (conscious) sedation was personally administered by the endoscopist. The following parameters were monitored: oxygen saturation, heart rate, blood pressure, and response to care. Total physician intraservice time was 25 minutes. Impression: - One 3 mm polyp in the cecum, removed with a cold biopsy forceps. Resected [...] was otherwise normal. Recommendation: - Await pathology results. - Repeat colonoscopy after studies are complete for surveillance based on pathology results. Procedure Code(s): --- Professional --- 32283, Colonoscopy, flexible; with removal of tumor(s), polyp(s), or other lesion(s) by snare technique 60354, 59, Colonoscopy, flexible; with biopsy, single or multiple 11116, Moderate sedation; each additional 15 minutes intraservice time G0500, Moderate sedation services provided by the same physician or other qualified health intensive care unit registered nurse performing a gastrointestinal endoscopic service that sedation supports, requiring the presence of an independent trained observer to assist in the monitoring of the patient's level of consciousness and physiological status; initial 15 minutes of intra-service time; patient age 5 years or older (additional time may be reported with 35731, as appropriate) Diagnosis Code(s): --- Professional --- D12.0, Benign neoplasm of cecum D12.2, Benign neoplasm of ascending colon D12.4, Benign neoplasm of descending colon D12.3, Benign neoplasm of transverse colon (hepatic flexure or splenic flexure) R19.5, Other fecal abnormalities K57.30, Diverticulosis of large intestine without perforation or abscess without bleeding CPT copyright 2018 [employer]. All rights reserved. The codes documented in this report are preliminary and upon standards engineer review may be revised to meet current compliance requirements. Joao Garrett MD 07/16/2019 1:47:49 PM This document has been electronically signed. Number of Addenda: 0 Note Initiated On: 07/16/2019 12:45 PM Endoscopy Report documented in this encounter Plan of Treatment Not on filedocumented as of this encounter Procedures Procedure Name Priority Date/Time Associated Diagnosis Comme nts SURGICAL Routine 07/16/2019 1:51 PM Results f or this PATHOLOGY, GI CDT procedure are in the results section. ENDOSCOPY, COLON, Routine 07/16/2019 12:45 Positive FIT (fecal Results for this SCREENING/DIAGNOST PM CDT immunochemical test) p rocedure are in IC the results section. documented in this encounter Results Surgical Path - GI (07/16/2019 1:51 PM CDT) Component Value Ref Test Analysis Performed At [facility] gist Range Method Time Signature Case Report Surgical Pathology ?Case: [id number] ? 07/21/2019 [facility] Authorizing Provider: ??Joao Garrett MD ?Collected: ? 07/16/2019 01:51 PM ? 1:[address] [facility] Ordering Location: ? [place] [address] ?Received: ?07/16/2019 02:07 PM ? Endoscopy ? Pathologist: ? Yazmin Flores MD ? Specimens: ?? A) - Colon, ce cum, ascending ? B) - [place] n, transverse, descending ? FINAL A. Colon, cecum, ascending, polypectomy: 07/21/2019 [facility] Electronically DIAGNOSIS ?? Tubular adenoma 1:53 PM CDT LABORATOR Y signed by Elinor Flores B. Colon, transverse, descending, polypectomy: on 07/21/2019 ?? Tubular adenoma a t 1:53 PM Gross A. The specimen is received in formalin and labeled with the patient's name and Colon, cecum, ascending.?? The specimen consists of 3 schofield-white irregular soft tissue fragments, ranging from 0.2 cm up 07/21/2019 [facility] Description to 0.8 cm. The specimen is f iltered and entirely submitted in one cassette. 1:53 PM CDT LABORATORY B. The specimen is received in formalin and labeled with the patient's name and Colon, transverse, descending.?? The specimen consists of 5 schofield-white irregular soft tissue fragments, ranging from less than 0.1 cm up to 0.3 cm. T he specimen is filtered and entirely submitted in one cassette. DJ Clinical Positive FIT Test 07/21/2019 [facility] Information Polyp 1:53 PM CDT LABORATORY Microscopic Microscopic 07/21/2019 [facility] Description examination is 1:53 PM CDT LABORATORY performed. Embedded 07/21/2019 [facility] Images 1:53 PM CDT LABORATORY Specimen Anatomical Collection Method Collection Time Receive d Time (Source) Location / / Volume Laterality Biopsy COLON STRUCTURE / 07/16/2019 1:51 PM 07/06 2:07 Unknown CDT PM CDT Biopsy COLON STRUCTURE / 07/16/2019 1:51 PM 07/06 2:07 (procedure) Unknown CDT PM CDT Joao Garrett MD LAB PATHOLOGY Performing Organization Address City/State/ZIP Code Phon e Number [facility] [address] [place] [address] Endoscopy, Colon, Screening/Diagnostic (07/16/2019 12:45 PM CDT) [...] turations were monitored ? continuou sly. The [id number] was ? introduce d through the anus [...] Code(s): ?? --- Professional - -- ? 10988, Co lonoscopy, flexible; with ? removal o f tumor(s), polyp(s), or ? other les ion(s) by snare technique ? 29250, 59 , Colonoscopy, flexible; ? with biop sy, single or multiple ? 15817, Mo derate sedation; each ? additiona l 15 minutes intraservice ? time ? G0500, Mo derate sedation services ? provided by the same physician or ? other [facility] health care ? professio mony performing a ? gastroint estinal endoscopic service [...] time [place] ? [place] [address], as ? appropria te) Diagnosis Code(s): ?? [...] abscess w ithout bleeding CPT copyright 2018 [employer]. All rights reserved. The codes documented in this report are preliminary and upon standards engineer review may be revised to meet current [...] immunochemical test Providers: Joao Garrett MD, Maureen Mak RN Referring MD: Veronica Heredia MD Medicines: Fentanyl 150 micrograms IV, M idazolam 2.5 mg IV, Oxygen 2l/min per nasal cannula, CO2 insufflation Complications: No immediate complication s. Procedure: After I obtained informed con sent, the scope was passed under direct vision. Throughout the procedure, the patient's blood pressure, pulse, and oxygen saturations were monitored continuously. The [id number] was introduced through the anus and advanced [...] pathology results. Procedure Code(s): --- Professional --- 47396, Colonoscopy, flexible; with removal of tumor(s), polyp(s), or other lesion(s) by snare technique 67054, 59, Colonoscopy, flexible; with biopsy, single or multiple 79223, Moderate sedation; each additional 15 minutes intraservice time G0500, Moderate sedation services provided by the same physician or other qualified health intensive care unit registered nurse performing a gastrointestinal endoscopic service that sedation supports, requiring the presence of an independent trained observer to assist in the monitoring of the patient's level of consciousness and physiological status; initial 15 minutes of intra-service time; patient age 5 years or older (additional time may be reported with 32612, as appropriate) Diagnosis Code(s): --- Professional --- D12.0, Benign neoplasm of cecum D12.2, Benign neoplasm of ascending colon D12.4, Benign neoplasm of descending colon D12.3, Benign neoplasm of transverse colon (hepatic flexure or splenic flexure) R19.5, Other fecal abnormalities K57.30, Diverticulosis of large intestine without perforation or abscess without bleeding CPT copyright 2018 [employer]. All rights reserved. The codes documented in this report are preliminary and upon standards engineer review may be revised to meet current compliance requirements. Joao Garrett MD 07/16/2019 1:47:49 PM This document has been electronically si gned. Number of Addenda: 0 Note Initiated On: 07/16/2019 12:45 PM Endoscopy Report Veronica Heredia DO PN GI PROCEDURE ORDERABLES Performing Organization Address City/State/ZIP Code Phon e Number [facility] ([facility]OV[facility]) [facility] ([facility]) [place], [place] documented in this encounter Visit Diagnoses Diagnosis Positive FIT (fecal immunochemical test) documented in this encounter Administered Medications Inactive Administered Medications - up to 3 most recent administrations Medication Order MAR Action Action Date Dose Rate Site fentaNYL (SUBLIMAZE) injection Given 07/16/2019 1:53 PM CDT 150 mcg 25-100 mcg 25-100 mcg, Intravenous, PRN, Other, Moderate Sedation, Starting on Sun07/16/19 at 1224, Until Shahla 07/17/19 at 0205, Administer in 25-100 mcg increments as directed by endoscopy procedure MD up to a total of 300 mcg. (Give only during endoscopy procedure visit) midazolam (VERSED) injection 0.5-2 mg Given 07/16/2019 1:54 PM CDT 2.5 mg 0.5-2 mg, Intravenous, PRN, Sedation, Starting on Sun07/16/19 at 1224, Until Shahla 07/17/19 at 0205, Administer in 0.5-2 mg increments as directed by endoscopy procedure MD up to a total of 8 mg. (Give only during endoscopy procedure visit) sodium chloride 0.9% injection 10-60 mL Given 07/16/2019 1:54 PM CDT 10 mL 10-60 mL, Intravenous, PRN, Line Patency, Line Care, Starting on Sun07/16/19 at 1224, Until Shahla 07/17/19 at 0205 documented in this encounter Care Teams Vice President Risk Management Relationship Specialty Start Date End Date Veronica Heredia DO PCP - General Family Practice 03/22/17 [address] [facility] [place] [address] documented as of this encounter
--- OUTSIDE RECORDS SUMMARY | 2022-08-15 14:52 | XMS_ITS | Encounter Summary ---
:1940 Author Organization [facility] Address [address], [place] [address] Care Team Providers Name Role Phone Veronica Heredia DO Primary Care Provider Reason for Visit Reason Comments Pharmacy Patient Calling Back Encounter Details Date Type Department Care Team Description 07/29/2019 Telephone [facility] Veronica Heredia, Pharmacy; Patient [address] [facility] Calling Back [address] [address] [place] [address] [phone] [place] [address] Social History Tobacco Use Types Packs/Day Years [...] encounter Nursing Notes Priscilla Mas RN - 07/29/2019 3:40 PM CDT Pt is okay with Rx being sent to the [facility] pharmacy Requested Prescriptions Signed Prescriptions Disp Refills ??? Losartan Potassium-HCTZ (HYZAAR) 100-12.5 MG tablet 90 Tablet 3 Sig: Take 1 Tablet by mouth daily. Authorizing Provider: VERONICA HEREDIA Ordering User: PRISCILLA MAS Veronica Heredia DO - 07/29/2019 2:54 PM CDT Would she like to change to our pharmacy? Priscilla Mas RN - 07/29/2019 2:32 PM CDT Clinician Action: Input needed regarding Medication Clinician Next Step: Patient IS expecting a call back from care team Specific Request(s): 1. Pharmacy asking for 2 separate scripts one for Lorsartin and another for the Hctz. Pharmacy does not have the combo pill in stock. [facility] pharmacy has silver in stock. Nurse can also change to alternative ARB, Diovan HCT or Avalide. Varsha Stokes - 07/29/2019 12:29 PM CDT Pt calling to check on below message. Liliam Ledbetter - 07/29/2019 11:37 AM CDT Medications - Pharmacy Calls Is your question or concern about a Prior Authorization? No. What is the question or concern? Pharmacy asking for 2 separate scripts one for Lorsartin and another for the Hctz. Pharmacy does nothave the combo pill in stock. What is the name and dose of the medication? Losartan Potassium-HCTZ (HYZAAR) 100-12.5 MG tablet Who prescribed it? (include first & last name) Veronica Heredia DO Please route to: Triage Pool (If patient is waiting, route as high priority) documented in this encounter Plan of Treatment Not on filedocumented as of this encounter Visit Diagnoses Diagnosis Essential hypertension Unspecified essential hypertension documented in this encounter Care Teams Box Coverer Hand Relationship Specialty Start Date End Date Veronica Heredia DO PCP - General Family Practice 03/22/17 [address] [facility] [place] [address] documented as of this encounter
--- OUTSIDE RECORDS SUMMARY | 2022-08-15 14:52 | XMS_ITS | Encounter Summary ---
:1940 Author Organization [facility] Address [address] [place] [address] Care Team Providers Name Role Phone FabionilsonVeronica DO Primary Care Provider Reason for Visit Reason Comments Allergies seasonal ANXIETY feeling on edge - possibly f rom meds Encounter Details Date Type Department Care Team Description 08/05/2019 Office Visit [facility] Mikey Vergara M D Head congestion (Primary Dx); Medicine [address] [facility] Heat intolerance; [address] [facility] Ctr Hypothyroidism, unspecified type; [address] [place], [place] [address] [phone] Social History Tobacco Use Types Packs/Day Years [...] Sign Reading Time Taken Comments Blood Pressure 114/78 08/05/2019 10:01 AM CDT Pulse 72 08/05/2019 10:01 AM CDT Temperature - - Respiratory Rate - - Oxygen Saturation - - Inhaled Oxygen Concentration - - Weight 88.5 kg (195 lb) 08/05/2019 10:01 AM CDT Height - - Body Mass Index 34.27 07/29/2019 8:31 AM CDT documented in this encounter Patient Instructions Patient InstructionsMikey Vergara MD - 08/05/2019 10:00 AM CDT For head congestion try salt water nasal irrigation and cetirizine 5 to 10mg once a day and monitor symptoms. The over the counter pill may make you a little groggy. flonase over the counter is the best but it takes about 3 - 6 weeks to kick in. Healthy Weight Matters Understanding body mass index Your BMI is on your After Visit Summary under ???Today???s Visit.?? You can also find a BMI calculator on the [employer] [place] [employer] website at www.nhlbi.nih.gov/health/educational/lose_wt/BMI/bmicalc.htm. BMI ranges [...] for dessert. Limit deep-fried vegetables, such as english fries. + Choose lean protein, such as [...] that works best for you. + For [facility], call [phone]. + For [facility], call [phone]. + For [facility] and [facility], call [phone]. + For [facility], call [phone]. + For [facility], call [phone]. (03/2019) ??[facility] documented in this encounter Progress Notes Mikey Vergara MD - 08/05/2019 10:00 AM CDT Subjective: Patient ID: Michele Angulo is a 78 y.o. female. Chief Complaint: Chief Complaint Patient presents with ??? Allergies seasonal ??? ANXIETY feeling on edge - possibly from meds HPI hasnt had allergies for a long time. Was in [place] by now but stayed in [place] for family things and is leaving on the , so wants this checked out as she is flying on the . Symptoms remind her of her allergies in the past. Head feels tight, congested. But can come and go. Her head feels like a balloon or basketball. This morning her nose was runny a little and then she felt better. No fevers with this. No ear pain with this. Today has a little sore throat but was exposedto her grand nephews who have little colds, wonders if that is related. No pain in cheeks or forehead or sinues. But some tightening around the head. Only one episode of runny. No clearing throat more than normal. Head congestion has been off and on since last Sunday... So about 3 days of symptoms. hasnt taken anything for symptoms. Feeling on edge... She notes only new med is for her thyroid. She was fine at her check up. This wasstarted in march or February. TSH on review was 40.56 on 03/12/19 and ft4 was 0.6. Started on 88mcgs of synthroid, and rechecked 6 weeks later TSH was 0.42 and recheck 3 months later (06/08/19) and TSH was 0.7.On the levothyroxine she felt much better. She started to feel on edge like a sensation in her skin.In the morning takes thyroid at 1030p and toprol. But before 6 she feels like her skin is hot. She gets up and walks and walks to calm it down and eat something. Appetite is a little less in the last week or so. No abdominal concerns. No diarrhea. But feeling hotter than normal, when wakes in the morning feels steamy. Review of Systems As above Vitals: 08/05/19 1001 BP: 114/78 Pulse: 72 Estimated body mass index is 34.27 kg/m?? as calculated from the following: Height as of 07/29/19: 5' 3.25 (1.607 m). Weight as of this encounter: 195 lb (88.5 kg). Wt Readings from Last 3 Encounters: 08/05/19 195 lb (88.5 kg) 07/29/19 196 lb (88.9 kg) 07/16/19 190 lb (86.2 kg) Objective: Physical Exam GEN: NAD Thyroid exam is negative, no palpable masses Reflexes 2/4 arms and legs not hyperreflexic Assessment: ICD-10-CM 1. Head congestion R09.81 2. Heat intolerance R68.89 TSH with Free T4 (if TSH Abnormal) 3. Hypothyroidism, unspecified type (HRC) E03.9 TSH with Free T4 (if TSH Abnormal) 4. Need for influenza vaccination Z23 Influenza IIV3 (Trivalent) Fluzone Highdose, 65+ Yrs (39495) Plan: 1) likely has mild allergies kicking in, can trial 5-10mg, start with 5 of zyrtec, monitor for sedation. Can also try flonase but discussed might take up to a month or more to feel results and althought it helps better but the time she leaves to [place] in a week it might not be that helpful. Symptoms are very mild anyway. 2/3) sounds like she might be oversupplemented, we will check TSH and discussed if TSH suppressed wecan reduce the supplementation dose and then have her recheck her TSH in 6 weeks, which she notes she could do in [place] to ensure she is both euthymic again and asymptomatic. GAD7 was 4 today. 4) Counseling completed for all immunization components that were given to the patient today. documented in this encounter Plan of Treatment Not on filedocumented as of this encounter Results TSH with Free T4 (if TSH Abnormal) (08/05/2019 10:55 AM CDT) P athologist Signature TSH, Reflex 1.01 0.30 - 4.50 08/05/2019 [facility] uIU/mL 12:57 PM CDT LABORATORY Specimen Anatomical Collection Method / Collection Time Recei la Time (Source) Location / Volume Laterality Blood Venipuncture / 08/05/2019 10:55 9 Unknown AM CDT 10:55 AM CDT Narrative [facility] - 08/05/2019 12:57 PM CDT Lab will automatically reflex to Free T4 when TSH results are <0.30 uIU/mL or >4.50 mIU/mL. Mikey Vergara MD LAB_1 Performing Organization Address City/State/ZIP Code Phon e Number [facility] [address] [place] [address] documented in this encounter Visit Diagnoses Diagnosis Head congestion - Primary Other diseases of nasal cavity and sinus es Heat intolerance Unspecified effects of heat and light Hypothyroidism, unspecified type (HRC) Need for influenza vaccination Need for prophylactic vaccination and in oculation against influenza documented in this encounter Care Teams Typesetting Machine Tender Relationship Specialty Start Date End Date Veronica Heredia DO PCP - General Family Practice 03/22/17 [address] [facility] [place] [address] documented as of this encounter
--- OUTSIDE RECORDS SUMMARY | 2022-08-15 14:52 | XMS_ITS | Encounter Summary ---
:1940 [facility] Address [address] [place] [address] Care Team Providers Name Role Phone Veronica Heredia DO Primary Care Provider Reason for Visit Reason Comments Refill levothyroxine (SYNTHROID) 88 MCG tablet [Pharmacy Med Name: LEVOTHYROXINE 88 MCG TABLET] Encounter Details Date Type Department Care Team Description 02/20/2020 Refill [facility] Veronica Heredia, DO Refill (levothyroxine [address] [address] [address] (SYNT HROID) [address] [Pharmacy Med Name: [place] [address] [place] LEVOTHYROXINE 88 MCG [phone] TABLET]) [phone] (Wo rk) Social History Tobacco Use Types [...] encounter Nursing Notes Roula Ochoa RN - 02/21/2020 9:53 AM CDT Renewed medication per medication refill protocol. Requested Prescriptions Pending Prescriptions Disp Refills ??? levothyroxine (SYNTHROID) 88 MCG tablet [Pharmacy Med Name: LEVOTHYROXINE 88 MCG TABLET] 90 Tablet 1 Sig: TAKE 1 TABLET BY MOUTH EVERY DAY Interface, Out ASSET4 Prov Query - 02/20/2020 2:31 AM CDT levothyroxine (SYNTHROID) 88 MCG tablet [Pharmacy Med Name: LEVOTHYROXINE 88 MCG TABLET] Medication started: 03/13/2019 Last ordered by VERONICA HEREDIA M: 03/13/2019 (344 days ago) QTY: 90, Refills: 3, Sig: take 1 tablet by mouth daily. (changed but equivalent) -> Refill x 6 months, qty: 90, refills: 1 (until due for an office visit) Last qualifying visit: 06/11/2019 (with VERONICA HEREDIA) (A more recent visit (in Family Practice with SUSAN ELLIOTT) was found) Next scheduled visit: None Thyroid Stimulating Hormone: 1.01 uIU/mL on 08/05/2019 Powered by [employer], Reference: [id number], 02/20/2020 2:31:17 AM CDT, Ezequiel: YURY JUAREZ REFILL ([id number]) documented in this encounter Plan of Treatment Not on filedocumented as of this encounter Visit Diagnoses Diagnosis Hypothyroidism, unspecified type (HRC) documented in this encounter Care Teams Drama Teacher Relationship Specialty Start Date End Date Veronica Heredia, PCP - General Family Practice 03/22/17 [address] [facility] [place] [id number] documented as of this encounter
--- OUTSIDE RECORDS SUMMARY | 2022-08-15 14:52 | XMS_ITS | Encounter Summary ---
:1940 Author Organization [facility] Address [address] [place] [address] Care Team Providers Name Role Phone Veronica Heredia DO Primary Care Provider Reason for Visit Reason Comments Medication Problems Encounter Details Date Type Department Care Team Description 03/30/2019 Hospital Encounter [facility] Milton Bermudez, Feeling unwell [address] [facility] [address] [place] [address] [facility] [phone] [place] [address] (Wo rk) Social History Tobacco Use Types [...] Sign Reading Time Taken Comments Blood Pressure 145/90 03/30/2019 10:49 AM CDT Pulse 80 03/30/2019 10:49 AM CDT Temperature 36.7 ??C (98.1 ??F) 03/30/2019 10:49 AM CDT Respiratory Rate 16 03/30/2019 10:49 AM CDT Oxygen Saturation 99% 03/30/2019 10:49 AM CDT Inhaled Oxygen Concentration - - Weight - - Height - - Body Mass Index - - documented in this encounter Medications at Time of Discharge Medication Sig Dispensed Refills Start Date End Date acetaminophen (TYLENOL) 325 Take 325-650 mg by 0 MG tablet mouth every 4 hours as needed for Pain. cholecalciferol (VITAMIN Take 1,000 Units 0 D3) 1000 units tablet by mouth daily. levothyroxine (SYNTHROID) Take 1 Tablet by 90 Tablet 3 07/201902/21/2020 88 MCG tabletIndications: mouth daily. Hypothyroidism, [...] type (HRC) documented as of this encounter ED Notes Milton Bermudez MD - 03/30/2019 11:48 AM CDT NAME: MICHELE PIZARRO I MR#: [id number] CSN: [id number] AUTHENTICATING CLINICIAN: Milton Bermudez MD CONFIRM #: [id number] LOC: 620 URGENT CARE PROGRESS NOTE DATE OF VISIT: 03/30/2019 : 1940 She is a 78-year-old female with a past medical history that includes essential hypertension, hyperlipidemia, GERD, obesity, nephrolithiasis, endometrial cancer, status post a year ago hysterectomy whowas just diagnosed with hypothyroidism when she saw the primary physician, Dr. Heredia on March 13. Caitlin pal eviewed this dictation including history of present illness, past medical history, labs, assessment and plan. Initially, she felt great, but then for a few days, she was feeling foggy with some dry mouth, but then is doing great today. Denies nausea, headache, fever, chest pain, abdominal pain or anorexia. No urinary symptoms. ALLERGIES: Reviewed by me in [facility] today. MEDICATION: Reviewed by me in [facility] today. EXAM: VITAL SIGNS: Reviewed by me in [facility] today. GENERAL: She is an overweight patient, looks very well, normal skin color, seems to be in good spirits, no apparent respiratory or any other discomfort. HEENT: Unremarkable. NECK: No cervical adenopathy to palpation. LUNGS: Clear bilaterally to auscultation with no wheezing or crackles, equal sounds. HEART: Regular rate and rhythm. She has no peripheral edema. ASSESSMENT: Nonspecific symptoms for a few days, which patient thought may be attributed to her new medication, namely Synthroid, unremarkable presentation here today. PLAN: Of course, she will continue with the Synthroid and I suggested that if she has any new or more severe symptoms, of course, she needs to be seen at a place like ours. Furthermore, if during the week there is any reoccurrence of any of these nonspecific symptoms, we will be happy to evaluate her again.When she saw Dr. Heredia on March 13, complete blood count, hemoglobin A1c and basic metabolic panel all were within normal. OS:MEDQ C: CONFIRM #: [id number] documented in this encounter Plan of Treatment Not on filedocumented as of this encounter Visit Diagnoses Diagnosis Feeling unwell Other ill-defined conditions Triage Assessment Note - Judy Bowling RN - 03/30/2019 10:44 AM CDT Started on levothyroxine two weeks ago. Has felt a little foggy and loosing perspective for last 3-4 days. Physically shaky, agitated. documented in this encounter Care Teams Repair Clerk Relationship Specialty Start Date End Date Veronica Heredia PCP - General Family Practice 03/22/17 [address] [facility] [address] [place], [place] [address] documented as of this encounter
--- OUTSIDE RECORDS SUMMARY | 2022-08-15 14:52 | XMS_ITS | Encounter Summary ---
:1940 Author Organization [facility] Address [address] [place] [address] Care Team Providers Name Role Phone Veronica Heredia DO Primary Care Provider Encounter Details Date Type Department Care Team Description 07/08/2019 Notes/Orders [facility] [address] Eduardo Garrett MD Gastroenterology 1 [facility] [address] [place] [address] [place] [address] [phone] Social History Tobacco Use Types Packs/Day Years [...] on filedocumented in this encounter Care Teams Research Development Director Relationship Specialty Start Date End Date Veronica Heredia DO PCP - General Family Practice 03/22/17 [address] [facility] [place] [id number] documented as of this encounter
--- OUTSIDE RECORDS SUMMARY | 2022-08-15 14:52 | XMS_ITS | Encounter Summary ---
:1940 Author Organization [facility] Address [address] [place] [address] Care Team Providers Name Role Phone Vernoica Heredia DO Primary Care Provider Encounter Details Date Type Department Care Team Description 04/23/2019 Lab Visit [facility] Hypothyroidism, unspecified [address] [facility] [place] [address] Social History Tobacco Use Types [...] Associated Diagnosis Comme nts TSH, SENSITIVE Routine 04/23/2019 8:27 AM Hypothyroidism, Resu lts for this CDT unspecified type procedure a re in the results section. documented in this encounter Results TSH (04/23/2019 8:27 AM CDT) P athologist Signature TSH, Sensitive 0.42 0.30 - 04/23/2019 [facility] 4.50 1:35 PM CDT LABORATORY uIU/mL Specimen Anatomical Collection Method / Collection Time Recei la Time (Source) Location / Volume Laterality Blood Venipuncture / 04/23/2019 8:27 04/23/2019 8:27 Unknown AM CDT AM CDT Veronica Heredia DO LAB_1 Performing Organization Address City/State/ZIP Code Phon e Number [facility] [address] [place] [address] documented in this encounter Visit Diagnoses Diagnosis Hypothyroidism, unspecified type (HRC) documented in this encounter Care Teams Performance Test Engineer Relationship Specialty Start Date End Date eVronica Heredia DO PCP - General Family Practice 03/22/17 [address] [facility] [place] [id number] documented as of this encounter
--- OUTSIDE RECORDS SUMMARY | 2022-08-15 14:52 | XMS_ITS | Encounter Summary ---
:1940 Author Organization [facility] Address [address] [place] [address] Care Team Providers Name Role Phone Veronica Heredia DO Primary Care Provider Reason for Visit Reason Comments Refill simvastatin (ZOCOR) 20 MG ta blet [Pharmacy Med Name: SIMVASTATIN 20 MG TABLET] Encounter Details Date Type Department Care Team Description 03/10/2020 Refill [facility] Veronica Heredia, DO Refill (simvastatin [address] [facility] [address] [facility] (ZOCOR) [address] [Pharmacy Med Name: [place] [address] [place], [place] SIMVASTATIN 20 MG [phone] TABLET]) [phone] (Wo rk) Social History Tobacco Use Types [...] encounter Nursing Notes Arash Jordan RN - 03/10/2020 8:38 AM CDT Renewed medication per medication refill protocol. Requested Prescriptions Signed Prescriptions Disp Refills ??? simvastatin (ZOCOR) 20 MG tablet 90 Tablet 0 Sig: Take 1 Tablet by mouth daily. Authorizing Provider: VERONICA HEREDIA Ordering User: ARASH JORDAN Refused Prescriptions Disp Refills ??? simvastatin (ZOCOR) 20 MG tablet [Pharmacy Med Name: SIMVASTATIN 20 MG TABLET] 90 Tablet 0 Sig: TAKE 1 TABLET BY MOUTH EVERY DAY Refused By: ARASH JORDAN Reason for Refusal: Request Already Responded To By Other Means Interface, Out LoyaltyLion Prov Query - 03/10/2020 2:22 AM CDT simvastatin (ZOCOR) 20 MG tablet [Pharmacy Med Name: SIMVASTATIN 20 MG TABLET] Medication started: 04/15/2014 Last ordered by VERONICA HEREDIA M: 02/05/2019 (399 days ago) QTY: 90, Refills: 3, Sig: take 1 tablet by mouth daily. (changed but equivalent) -> Refill x 3 months (until due for an office visit) Last qualifying visit: 06/11/2019 (with VERONICA HEREDIA) (A more recent visit (in Family Practice with SUSAN ELLIOTT) was found) Next scheduled visit: None [facility], Reference: [id number], 03/10/2020 2:22:47 AM CDT, Pool: YURY JUAREZ REFILL ([id number]) documented in this encounter Plan of Treatment Not on filedocumented as of this encounter Visit Diagnoses Diagnosis Hyperlipidemia, unspecified hyperlipidem ia type (HRC) documented in this encounter Care Teams Electric Blanket Packer Relationship Specialty Start Date End Date Veronica Heredia DO PCP - General Family Practice 03/22/17 [address] [facility] [place] [id number] documented as of this encounter
--- OUTSIDE RECORDS SUMMARY | 2022-08-15 14:52 | XMS_ITS | Encounter Summary ---
:1940 Author Organization [facility] Address [address] [place] [address] Care Team Providers Name Role Phone Veronica Heredia DO Primary Care Provider Reason for Visit Reason Comments Follow-up BP and labs from 03/11 Encounter Details Date Type Department Care Team Description 03/13/2019 Office Visit [facility] Veronica Heredia, [facility] Medicine DO Essential hypertension; [address] [facility] Telephone [phone] [facility] (impai red glucose tolerance); [address] Orthostasis; [place] [address] [place], [place] Hypothyroidism, unspecified type [phone] [id number] Social History Tobacco Use Types Packs/Day Years [...] Sign Reading Time Taken Comments Blood Pressure 105/73 03/13/2019 2:34 PM CDT Pulse 79 03/13/2019 2:34 PM CDT Temperature - - Respiratory Rate - - Oxygen Saturation - - Inhaled Oxygen Concentration - - Weight 92.3 kg (203 lb 6.4 oz) 03/13/2019 1:28 PM CDT Height - - Body Mass Index 35.75 03/04/2019 8:47 AM CDT documented in this encounter Progress Notes Veronica Heredia DO - 03/13/2019 1:30 PM CDT CHIEF COMPLAINT: Chief Complaint Patient presents with ??? Follow-up BP and labs from 03/11 SUBJECTIVE : This is a 78 y.o. female patient presents feeling off, she describes feeling lightheaded for the past 3 weeks or so. She recently started hydrochlorothiazide which is only thing she can think of that is changed. She has been normally active working out regularly eating normally, drinks about 3-4 glasses of liquid a day. She has not been acutely ill, no recent illness/URI. No nausea, vomiting or diarrhea. The lightheadedness is brought on by going from lying to seated to standing, she feels off for amoment possible slight motion sensation but she is not sure. She waits and it passes in seconds. Shehas no associated chest pain, difficulty breathing or palpitations with this. She denies neurologic symptoms of weakness numbness or tingling associated with this. She has not felt presyncopal and no syncope. No falls or nausea or vomiting associated with the lightheadedness. No headache head or neck injury. No fever, chills or sweats. She also wanted to follow-up on her recent labs. Impaired glucose tolerance, A1c now at 6.0 from 5.5. No increased thirst or urination. She has had some gradual waking this past year. PAST MEDICAL HISTORY : Patient Active Problem List Diagnosis ??? Essential hypertension (HRC) ??? Hyperlipidemia (HRC) ??? Esophageal reflux ??? BMI 34.0-34.9,adult ??? Calculus of kidney ??? Endometrial cancer [...] Antibiotics Hives OBJECTIVE : Vital Signs: BP 105/73 (BP Location: Left Arm, BP Cuff Size: Adult Large) Pulse 79 Wt 203 lb 6.4oz (92.3 kg) BMI 35.75 kg/m?? , orthostatics-low normal BP with stannding change of SBP by 42. Orthostatic BP assessment reproduced her symptoms more than neck rotational maneuvers. Gen.: Alert, cooperative in no acute distress. Head: Normocephalic, atraumatic. Eyes: PERRLA, full EOM. No scleral icterus or conjunctivitis present. No nystagmus. Ears: Normal pinnae, external auditory canals clear, tympanic membranes without effusion, erythema, retraction or bulging. Nose: Patent, without deformity. Throat: Moist mucous membranes without lesions, erythema, or exudate. Neck: Supple, without masses, lymphadenopathy or tenderness. No thyromegaly present. Respiratory: Normal respiratory rate and effort. Lungs are clear to auscultation with good breath sounds bilaterally. No wheeze or crackle. Heart: RRR without murmurs, rubs, or gallops. Abdomen: The abdomen was soft, nondistended and nontender, normal bowel sounds present. No obvious masses or organomegaly. Psych: No evidence of overt anxiety or depression. Extremities: No cyanosis, clubbing or edema. Musculoskeletal: Normal tone. Skin: No suspicious lesions or rash on exposed skin. No pallor. Neurologic: Alert, oriented. Cranial nerves 2-12 intact. No facial droop. Normal speech. Normal sensation. Normal strength. Normal gait. Normal coordinated movements. Normal finger-nose testing. No dysdiadochokinesia. Head impulse normal. Skin testing negative. Symptoms mildly evoked with extension and head rotation from left to right. Negative rhomberg's. ECG today- Normal sinus rhythm Normal ECG When compared with ECG of 24-APR-2018 10:05, T wave inversion no longer evident in Inferior leads Confirmed by PONCE GERMAIN ([id number]) on 03/13/2019 2:58:55 PM Lab Results Component Value Date TSH, Reflex 40.56 (H) 03/12/2019 Lab Results Component Value Date Hemoglobin A1C 6.0 (H) 03/12/2019 Lab Results Component Value Date WBC 6.5 03/13/2019 RBC 4.48 03/13/2019 Hemoglobin 13.5 03/13/2019 HCT 40.6 03/13/2019 MCV 90.6 03/13/2019 RDW 13.0 03/13/2019 Platelets 204 03/13/2019 ASSESSMENT/PLAN: ICD-10-CM 1. Lightheadedness R42 ECG 12 Lead Outpatient TSH with Free T4 (if TSH Abnormal) Complete Blood Count W/Diff 2. Essential hypertension (HRC) I10 3. IGT (impaired glucose tolerance) R73.02 4. Orthostasis I95.1 5. Hypothyroidism, unspecified type (HRC) E03.9 levothyroxine (SYNTHROID) 88 MCG tablet TSH Antithyroid Peroxidase 1. Symptoms likely from orthostatic change, recent hydrochlorothiazide added to her blood pressure regimen as well as very little liquid intake, about 3-4 glasses of liquid daily which she has considered to be normal up until starting this medication. We discussed increasing her liquid intake to 6-8 glasses of liquid daily to see if this helps, if this is not helping her symptoms are worsening she should contact the clinic. 2. Also notably her TSH is quite elevated and her T4 is suppressed, plan to start levothyroxine 88 mcg daily, check TSH in 6 weeks, TPO pending. 3. DM prevention discussed. 4. RTC if not improving or worsening. 5. Call 911 if significantly short of breath, symptoms of CVA or chest pain occur. This was dictated using a voice recognition program, typographical and sound like errors may occur. documented in this encounter Plan of Treatment Not on filedocumented as of this encounter Procedures Procedure Name Priority Date/Time Associated Diagnosis Comme nts ECG 12 LEAD Routine 03/13/2019 2:53 PM Lightheadedness Result s for this OUTPATIENT CDT procedure are i n the results section. documented in this encounter Results TSH (04/23/2019 8:27 AM CDT) P athologist Signature TSH, Sensitive 0.42 0.30 - 04/23/2019 [facility] 4.50 1:35 PM CDT LABORATORY uIU/mL Specimen Anatomical Collection Method / Collection Time Recei la Time (Source) Location / Volume Laterality Blood Venipuncture / 04/23/2019 8:27 04/23/2019 8:27 Unknown AM CDT AM CDT Veronica Heredia DO LAB_1 Performing Organization Address City/State/ZIP Code Phon e Number [facility] [address] [place] [address] ECG 12 Lead Outpatient (03/13/2019 2:53 PM CDT) P athologist Signature Ventricular Rate 62 BPM [facility] Atrial Rate 62 BPM [facility] P-R Interval 202 ms [facility] QRS Duration 94 ms [facility] QT 426 ms [facility] QTc 432 ms [facility] P Bassett 10 degrees [facility] R Bassett 33 degrees [facility] T Bassett 42 degrees [facility] Specimen (Source) Anatomical Collection Method Collection Time Re ceived Time Location / / Volume Laterality 03/13/2019 2:53 PM CDT Narrative [facility] - 03/13/2019 2:58 PM CDT Sinus rhythm Normal ECG When compared with ECG of 24-APR-2018 10 :05, T wave inversion no longer evident in In ferior leads Confirmed by PONCE GERMAIN ([id number]) o n 03/13/2019 2:58:55 PM Procedure Note Ponce Germain MD / Epic, Interna l Processing - 02/18/2020 Sinus rhythm Normal ECG When compared with ECG of 24-APR-2018 10 :05, T wave inversion no longer evident in In ferior leads Confirmed by PONCE GERMAIN ([id number]) o n 03/13/2019 2:58:55 PM Veronica Heredia DO PN ECG ORDERABLES Performing Organization Address City/State/ZIP Code Phon e Number [facility] [address] [place] [address] (ABNORMAL) Antithyroid Peroxidase (03/12/2019 7:54 AM CDT) Component Value Ref Test Analysis Performed At [facility] gist Range Method Time Signature Thyroperoxidase Ab 505 (H) <=8 03/14/2019 [facility] IU/ml 9:21 AM CDT CENTRAL LAB Specimen Anatomical Collection Method / Collection Time Recei la Time (Source) Location / Volume Laterality Blood Venipuncture / 03/12/2019 7:54 03/12/2019 7:54 Unknown AM CDT AM CDT Veronica Heredia DO LAB_1 Performing Organization Address City/[facility]/ZIP Code Phon e Number [facility] [address] [address] (ABNORMAL) TSH with Free T4 (if TSH Abnormal) (03/12/2019 7:54 AM CDT) P athologist Signature TSH, Reflex 40.56 (H) 0.30 - 03/13/2019 [facility] 4.50 2:56 PM CDT LABORATORY uIU/mL Specimen Anatomical Collection Method / Collection Time Recei la Time (Source) Location / Volume Laterality Blood Venipuncture / 03/12/2019 7:54 03/12/2019 7:54 Unknown AM CDT AM CDT Narrative [facility] - 03/13/2019 2:56 P M CDT Lab will automatically reflex to Free T4 when TSH results are <0.30 uIU/mL or >4.50 mIU/mL. Veronica Heredia DO LAB_1 Performing Organization Address City/State/ZIP Code Phon e Number [facility] [address] [place] [address] documented in this encounter Visit Diagnoses Diagnosis Lightheadedness - Primary Dizziness and giddiness Essential hypertension (HRC) Unspecified essential hypertension IGT (impaired glucose tolerance) Impaired glucose tolerance test Orthostasis Orthostatic hypotension Hypothyroidism, unspecified type (HRC) documented in this encounter Care Teams Road Cleaner Relationship Specialty Start Date End Date Veronica Heredia DO PCP - General Family Practice 03/22/17 [address] [facility] [address] [place], [place] [id number] documented as of this encounter
--- OUTSIDE RECORDS SUMMARY | 2022-08-15 14:52 | XMS_ITS | Encounter Summary ---
:1940 Author Organization [facility] Address [address] [address] Care Team Providers Name Role Phone RobleskarinaVeronica DO Primary Care Provider Reason for Visit Reason Comments Follow-up Encounter Details Date Type Department Care Team Description 07/29/2019 [facility] Dee Baker, Endometr ial cancer Gynecologic Oncology OBGYN HOSPITALIST PHYSICIAN, MAGALYS (HRC) (Primary Dx) [address] [place] [address] [phone] Social History Tobacco Use Types Packs/Day Years [...] Sign Reading Time Taken Comments Blood Pressure 149/69 07/29/2019 8:31 AM CDT Pulse 74 07/29/2019 8:31 AM CDT Temperature - - Respiratory Rate - - Oxygen Saturation - - Inhaled Oxygen Concentration - - Weight 88.9 kg (196 lb) 07/29/2019 8:31 AM CDT Height 160.7 cm (5' 3.25) 07/29/2019 8:31 AM CDT Body Mass Index 34.45 07/29/2019 8:31 AM CDT documented in this encounter Progress Notes Dee Baker APRN, MAGALYS - 07/29/2019 8:30 AM CDT Follow Up Notes on Referred Patient RE: Michele Angulo : 1940 [place]: 07/29/2019 Michele Angulo is a 78 y.o. old woman with a diagnosis of Stage 1A grade 2 endometrial cancer. ?She is here today for vaginal spotting.? 06/12/18:??Total laparoscopic hysterectomy, bilateral salpingo-oophorectomy, cystoscopy? Current status: Pt. Is feeling generally well. She denies vaginal bleeding or discharge. No abdominal or pelvic pain. Normal bowel and bladder habits. Her appetite is good. No cough, SOB or LE edema. She is going to the 6 days/week and does rowing, biking and the eliptical. She will leave for [place] for the august and walks 2 miles daily. Review of Systems: Systemic no weight [...] cozaar ??? Obesity (HRC) 04/30/2006 LW Onset: [id number] ??? Postmenopausal 04/16/2015 resolved ??? Zoster Past [...] confirms these findings. Assessment: Michele is a 78 y.o. old woman with a diagnosis of Stage 1A grade 2 endometrial cancer. ? Plan: 1.)?EMCA -?She will follow q 6 months for 5 years and will transition to the care of her primary PROMOTIONS TEAM LEADER after initial follow-up here. ?? 2.)?Genetic risk factors were assessed and the patient does not meet the qualifications for a referral. ? 3.)?Labs and/or tests ordered include:?none. ?? 4.)?Health maintenance issues addressed today include??routine care with PCP. Thank you for allowing us to participate in the care of your patient. Sincerely, Dee Baker APRN, CNP 07/29/2019, 9:01 AM Kalani López RN - 07/29/2019 8:30 AM CDT Patient declines nurse fireproof door maker during exam documented in this encounter Plan of Treatment Not on filedocumented as of this encounter Visit Diagnoses Diagnosis Endometrial cancer (HRC) - Primary Malignant neoplasm of corpus uteri, exce pt isthmus documented in this encounter Care Teams Utilities Service Investigator Relationship Specialty Start Date End Date Veronica Heredia, PCP - General Family Practice 03/22/[address] [facility] [address] [place], [place] [id number] documented as of this encounter
--- OUTSIDE RECORDS SUMMARY | 2022-08-15 14:52 | XMS_ITS | Encounter Summary ---
:1940 Author Organization [facility] Address [address] [place] [address] Care Team Providers Name Role Phone Veronica Heredia DO Primary Care Provider Reason for Visit Reason Comments MONITORING, HOLTER needs order placed. Requesti ng to speak with nurse Encounter Details Date Type Department Care Team Description 06/10/2019 Telephone [facility] Family Medic ine Veronica Heredia, MONITORING, HOLTER [address] [facility] (needs order placed. [address] [address] [facility] [place] [address] with nurse) [phone] [place], [place] [id number] Social History Tobacco Use Types Packs/Day Years [...] documented as of this encounter Nursing Notes Elissa Escobar V, RN - 06/10/2019 9:28 AM CDT Cardiology scheduling calling. Pt was seen in ED 06/08/2019, was instructed to complete a Holter monitor; however, ED provider ordered holter incorrectly and provided pt with incorrect instructions. Pt was confused. Cardiology discussed with ED FIELD MECHANICAL METER TESTER yesterday, informed orders were placed incorrectly, requested ED provider place orders correctly; holter was reordered but per cardiology scheduling the orders are still incorrect- they were ordered as a lab and not Cardio. Per cardiology scheduling protocol, their next step is to request PCP place orders for pt to complete Holter. Reviewed chart unclear how long ED provider intended pt have Holter placed for. Triage nurse called ED FIELD MECHANICAL METER TESTER, informing of situation. Triage nurse requested Holter is reordered, and to call Cardiology at [phone] when order is placed so they can assist the pt with scheduling. Verbalized understanding Janey Mckeon - 06/10/2019 9:21 AM CDT Orders - Laboratory What lab order is being requested? Holter monitor Why is this order being requested? Caller states that patient was in the ER and that a Holtor Monitor order was to be placed. Caller would like to speak with Dr. Heredia or Nurse. Please advise. Needs order placed and does not want patient to wait. When were you seen last for this concern? By whom? Patient was seen in ER Additional comments (related to the above concern): Please advise. Wants to speak with nurse. Is it okay to leave a detailed message on your voicemail? Yes (Advise caller that the PN call back number will end with [phone] or unknown) (Instruct patient to check with insurance company for coverage) Please route to: CHRSI Nieves documented in this encounter Plan of Treatment Not on filedocumented as of this encounter Visit Diagnoses Not on filedocumented in this encounter Care Teams Plastics Spreading Machine Operator Relationship Specialty Start Date End Date Veronica Heredia, DO PCP - General Family Practice 03/22/17 [address] [facility] [place] [address] documented as of this encounter
--- OUTSIDE RECORDS SUMMARY | 2022-08-15 14:52 | XMS_ITS | Encounter Summary ---
:1940 Author Organization [facility] Address [address] [address] Care Team Providers Name Role Phone Veronica Heredia DO Primary Care Provider Reason for Visit Reason Comments MEDICATION CHECK BP and Thyroid Encounter Details Date Type Department Care Team Description 04/02/2019 Office Visit Sawyer Hernandez Veronica Heredia, Essential hypertension (Primary Dx); Medicine DO Hypothyroidism, unspecified type [address] [place] [address] [place] [phone] Social History Tobacco Use Types Packs/Day Years [...] Reading Time Taken Comments Blood Pressure 128/80 04/02/2019 3:09 PM CDT Pulse 81 04/02/2019 3:09 PM CDT Temperature - - Respiratory Rate - - Oxygen Saturation - - Inhaled Oxygen Concentration - - Weight 91 kg (200 lb 11.2 oz) 04/02/2019 3:09 PM CDT Height 160.7 cm (5' 3.25) 04/02/2019 3:09 PM CDT Body Mass Index 35.27 04/02/2019 3:09 PM CDT documented in this encounter Progress Notes Veronica Heredia, DO - 04/02/2019 3:30 PM CDT CHIEF COMPLAINT: Chief Complaint Patient presents with ??? MEDICATION CHECK BP and Thyroid SUBJECTIVE : This is a 78 y.o. female patient who presents for follow-up. 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 She was started on levothyroxine. She is taking this at bedtime, on empty stomach without other medications at the time of administration. Initially she felt a little bit anxious and jittery when she started this however for the last couple of days she has felt well. She had not realized that she had been constipated, but since starting themedication her stools have been more normal. Sister with a history of thyroid disease. No neck pain or thyroid gland tenderness. She does note that when she was living in [place] last spring she had anepisode where she was very hungry all the time. When I saw her in March she had been having lightheadedness which has since resolved. HTN, recent change in her medication in February, no current chest symptoms. No SEs now. PAST MEDICAL HISTORY : Patient Active Problem [...] Antibiotics Hives OBJECTIVE : Vital Signs: BP 128/80 (BP Location: Left Arm, BP Cuff Size: Adult Large) Pulse 81 Ht 5' 3.25 (1.607 m) Wt 200 lb 11.2 oz (91 kg) BMI 35.27 kg/m?? Gen.: Alert, cooperative in no acute distress. Head: Normocephalic, atraumatic. Eyes: No scleral icterus or conjunctivitis present. Nose: Patent, without deformity. Throat: Moist mucous membranes. Neck: Supple, without masses, lymphadenopathy or tenderness. Thyroid nontender. Respiratory: Normal respiratory rate and effort. Lungs are clear to auscultation with good breath sounds bilaterally. No wheeze or crackle. Heart: RRR without murmurs, rubs, or gallops. Psych: No evidence of overt anxiety or depression. Extremities: No cyanosis, clubbing or edema. Musculoskeletal: Normal tone. Skin: No pallor. Neurologic: Alert, non-focal. No tremor. Lab Results Component Value Date TSH, Reflex 40.56 (H) 03/12/2019 TPO-505 ASSESSMENT/PLAN: ICD-10-CM 1. Essential hypertension I10 2. Hypothyroidism, unspecified type (HRC) E03.9 1. Labs reviewed, continue levothyroxine 88 ??g daily, plan for a recheck at 6 weeks from start of the medication which is April 24, 2019, call if symptoms occur. Symptoms of hyper/hypothyroidism discussed in regard to over/under replacement of her levothyroxine. 2. Blood pressure well controlled currently. Recheck blood pressure and labs in 6 months. 3. RTC prn and q6mo. This was dictated using a voice recognition program, typographical and sound like errors may occur. > 50 % of our visit was in counseling, patient education and coordination of care. Face to face time 25 mins. documented in this encounter Plan of Treatment Not on filedocumented as of this encounter Visit Diagnoses Diagnosis Essential hypertension (HRC) - Primary Unspecified essential hypertension Hypothyroidism, unspecified type (HRC) documented in this encounter Care Teams Machine Cementer Relationship Specialty Start Date End Date Veronica Heredia DO PCP - General Family Practice 03/22/17 [address] [facility] [place] [address] documented as of this encounter
--- OUTSIDE RECORDS SUMMARY | 2022-08-15 14:52 | XMS_ITS | Encounter Summary ---
:1940 Author Organization [facility] Address [address] [place] [address] Care Team Providers Name Role Phone Veronica Heredia DO Primary Care Provider Reason for Visit Reason Comments RESULTS, TEST Encounter Details Date Type Department Care Team Description 04/23/2019 Telephone [facility] Veronica Heredia, DO RESULTS, TEST [address] [place] [address] [facility] [place] [address] [place], [place] [id number] (Wo rk) Social History Tobacco Use Types [...] encounter Nursing Notes Priscilla Mas RN - 04/23/2019 3:59 PM CDT Informed Pt of notes below, she will call if she would like to have rechecked or f/u in 6 months. Veronica Heredia DO - 04/23/2019 3:38 PM CDT Please call and let her know that her TSH is within normal (but low normal). Please ask if she is tolerating her current dosage, if she is still feeling that the dosage is too high, which she had expressed when I saw her last we could decrease it slightly and recheck in 6 weeks. documented in this encounter Plan of Treatment Not on filedocumented as of this encounter Visit Diagnoses Not on filedocumented in this encounter Care Teams Hammer Mill Operator Relationship Specialty Start Date End Date Veronica Heredia DO PCP - General Family Practice 03/22/17 [address] [facility] [place] [address] documented as of this encounter
--- OUTSIDE RECORDS SUMMARY | 2022-08-15 14:52 | XMS_ITS | Encounter Summary ---
:1940 Author Organization [facility] Address [address] [place] [address] Care Team Providers Name Role Phone Veronica Heredia DO Primary Care Provider Reason for Visit Reason Onset Date Comments Refill 06/14/2020 simvastatin (ZOCOR) 20 MG tablet Encounter Details Date Type Department Care Team Description 06/14/2020 Refill [facility] Veronica Heredia, DO Refill (simvastatin [address] [facility] [address] [facility] (ZOCOR) 20 MG tablet) [address] Ctr [place] [address] [place] [phone] (Wo rk) Social History Tobacco Use Types [...] encounter Nursing Notes Roseline Montes RN - 06/14/2020 3:58 PM CDT Renewed medication per medication refill protocol. Requested Prescriptions Pending Prescriptions Disp Refills simvastatin (ZOCOR) 20 MG tablet 90 Tablet 0 Sig: Take 1 Tablet by mouth daily. Interface, Out [employer] Prov Query - 06/14/2020 3:07 PM CDT simvastatin (ZOCOR) 20 MG tablet Medication started: 04/16/2015 Last ordered by VERONICA HEREDIA M: 03/10/2020 (96 days ago) QTY: 90, Refills: 0, Sig: take 1 tablet bymouth daily. (unchanged) -> Refill x 1 month (courtesy refill. overdue for an office visit) Last qualifying visit: 06/11/2019 (with VERONICA HEREDIA) (A more recent visit (in Family Practice with SUSAN ELLIOTT) was found) Next scheduled visit: None Powered by [employer], Reference: [id number], 06/14/2020 3:07:00 PM CDT, Pool: YURY FP REFILL ([id number]) documented in this encounter Plan of Treatment Not on filedocumented as of this encounter Visit Diagnoses Diagnosis Hyperlipidemia, unspecified hyperlipidem ia type (HRC) documented in this encounter Care Teams Dice Manager Relationship Specialty Start Date End Date Veronica Heredia, PCP - General Family Practice 03/22/[address] [facility] [address] [place], [place] [address] documented as of this encounter
--- OUTSIDE RECORDS SUMMARY | 2022-08-15 14:52 | XMS_ITS | Encounter Summary ---
:1940 Author Organization [facility] Address [address] [place] [address] Care Team Providers Name Role Phone Veronica Heredia DO Primary Care Provider Reason for Visit Reason Comments RESULTS, TEST Encounter Details Date Type Department Care Team Description 03/14/2019 Telephone [facility] Veronica Heredia, DO RESULTS, TEST [address] [facility] [address] [facility] [place] [address] [place], [place] [phone] (Wo rk) Social History Tobacco Use Types [...] documented as of this encounter Nursing Notes Yamilka Jay LPN - 03/14/2019 1:18 PM CDT Informed patient of results for TPO negative antibody- 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 Patient verbalized understanding. 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 documented in this encounter Plan of Treatment Not on filedocumented as of this encounter Visit Diagnoses Not on filedocumented in this encounter Care Teams Doctor Of Nurse Anesthesia Relationship Specialty Start Date End Date Veronica Heredia DO PCP - General Family Practice 03/22/17 [address] [facility] [place] [address] documented as of this encounter
--- OUTSIDE RECORDS SUMMARY | 2022-08-15 14:52 | XMS_ITS | Encounter Summary ---
:1940 Author Organization [facility] Address [address] [place] [address] Care Team Providers Name Role Phone Veronica Heredia DO Primary Care Provider Reason for Visit Reason Comments LAB RESULTS Encounter Details Date Type Department Care Team Description 03/13/2019 Telephone [facility] Veronica Heredia, LAB RESULTS [address] [facility] [address] [facility] [place] [address] [place] [address] [phone] Social History Tobacco Use Types Packs/Day Years [...] documented as of this encounter Nursing Notes Caterina Jacobs RN - 03/13/2019 4:29 PM CDT Pt informed of results, follow up. Pt verbalizes understanding. Veronica Heredia DO - 03/13/2019 3:52 PM CDT Please call Michele with results. Her TSH is elevated at her T4 is low, this represents low thyroid function or hypothyroidism. This could be contributing to her current symptoms which we discussed today in clinic (ligtheaded/orthostatic) in addition to the hydration and BP med which also are contributing. I would like her to start levothyroxine. I have sent this in at 88 mcg daily this should be taken on an empty stomach (before and after taking this), such as before bed and without other medications taken at that time or after for 30 mins to an hour. Recheck of her TSH in 6 weeks, lab ordered. I also added a thyroid antibody test to her current lab draw to see if this is related to an autoimmune type of thyroid condition-Nicol's. documented in this encounter Plan of Treatment Not on filedocumented as of this encounter Visit Diagnoses Not on filedocumented in this encounter Care Teams Steamtable Worker Relationship Specialty Start Date End Date Veronica Heredia DO PCP - General Family Practice 03/22/[address] [address] [facility] [place] [address] documented as of this encounter
--- OUTSIDE RECORDS SUMMARY | 2022-08-15 14:52 | XMS_ITS | Encounter Summary ---
:1940 Author Organization [facility] Address [address], [place] [address] Care Team Providers Name Role Phone Veronica Heredia DO Primary Care Provider Reason for Visit Reason Comments EXCESSIVE THIRST HEADACHE Encounter Details Date Type Department Care Team Description 03/27/2019 Nurse Triage Sawyer Hernandez Veronica Heredia, EXCESSIVE THIRST; Medicine DO HEADACHE [address] [facility] [address] [facility] [place] [address] [place] [phone] Social History Tobacco Use Types Packs/Day Years [...] of this encounter Nursing Notes Elissa Escobar V RN - 03/27/2019 11:46 AM CDT Pt calling. Two weeks ago began Hypothyroidism treatment with levothyroxine 88 mcg, felt she had more energy began exercising at the [facility]. Two days ago, began feeling more fatigued was concerned levothyroxine dose may be too high, reassured pt the peak therapeutic effect may require 4-6 days. Last night, was very thirsty tongue felt dry, denies increased urination, does not eat foods high in salt. Drinks 6 8z of fluids, today. Encouraged increase fluid intake. Drink fluid 2-3 hours before going to bed. Yesterday, felt like she had allergy symptoms, itchy throat, this resolved today. Does not have headache today. Denies fever, skipped heart beats, chest pain and SOB. Problem list reviewed as related to this call. Onset of action: Oral: 3 to 5 days; peak therapeutic effect may require 4 to 6 weeks Reason for Disposition ??? Weakness from poor fluid intake Protocols used: WEAKNESS (GENERALIZED) AND [id number] Tone Salgado - 03/27/2019 11:24 AM CDT Symptoms Describe your symptoms (if pain, include location): General Weakness, Increased thirst, head pressure When did they start? Yesterday 03/26/19 Additional comments (related to the above concern): If a prescription is needed, patient would like it filled at the pharmacy listed in Meds & Orders. (Verify the pharmacy patient would like to use for this request is highlighted in blue in PharmacySelection under Meds & Orders) Is it okay to leave a detailed message on your voicemail? unconfirmed (Advise caller that the PN call back number will end with [phone] or unknown) For urgent symptoms: Please route and transfer to: Triage Pool (high priority) For routine symptoms: Please route to: Triage Pool (only transfer if caller insists) documented in this encounter Plan of Treatment Not on filedocumented as of this encounter Visit Diagnoses Not on filedocumented in this encounter Care Teams Talent Specialist Relationship Specialty Start Date End Date Veronica Heredia DO PCP - General Family Practice 03/22/17 [address] [facility] [place] [address] documented as of this encounter
--- OUTSIDE RECORDS SUMMARY | 2022-08-15 14:52 | XMS_ITS | Encounter Summary ---
:1940 Author Organization [facility] Address [address] [place] [address] Care Team Providers Name Role Phone Robleskarina Veronica Oliver DO Primary Care Provider Encounter Details Date Type Department Care Team Description 03/13/2019 Lab Visit [facility] Lightheadedness [address] [place] [address] Social History Tobacco Use Types [...] Name Priority Date/Time Associated Diagnosis Comme nts CBC AND DIFFERENTIAL Routine 03/13/2019 2:15 Lightheadedness R esults for this PANEL PM CDT procedure are i n the results section. COMPLETE BLOOD Routine 03/13/2019 2:15 Lightheadedness Results for this COUNT-W/DIFF PM CDT procedure are i n the results section. documented in this encounter Results (ABNORMAL) Complete Blood Count-W/Diff (03/13/2019 2:15 PM CDT) [facility] Signature WBC 6.5 3.5 - 10.5 03/13/2019 [facility] x10(9)/L 2:21 PM CDT LABORATORY RBC 4.48 3.90 - 03/13/2019 [facility] 5.03 2:21 PM CDT LABORATORY x10(12)/L Hemoglobin 13.5 12.0 - 03/13/2019 [facility] 15.5 g/dL 2:21 PM CDT LABORATORY HCT 40.6 34.9 - 03/13/2019 [facility] 44.5 % 2:21 PM CDT LABORATORY MCV 90.6 80.0 - 03/13/2019 [facility] 100.0 fL 2:21 PM CDT LABORATORY MCH 30.1 27.6 - 03/13/2019 [facility] 33.3 pg 2:21 PM CDT LABORATORY MCHC 33.3 31.5 - 03/13/2019 [facility] 35.2 g/dL 2:21 PM CDT LABORATORY RDW 13.0 11.9 - 03/13/2019 [facility] 15.5 % 2:21 PM CDT LABORATORY Platelets 204 150 - 450 03/13/2019 [facility] x10(9)/L 2:21 PM CDT LABORATORY Automated NRBC 0 <=0 /100 03/13/2019 [facility] WBC 2:21 PM CDT LABORATORY Neutrophil 4.1 1.7 - 7.0 03/13/2019 [facility] Absolute 10(9)/L 2:21 PM CDT LABORATORY Lymphocyte 1.6 1.0 - 4.8 03/13/2019 [facility] Absolute 10(9)/L 2:21 PM CDT LABORATORY Monocytes 0.7 0.2 - 0.9 03/13/2019 [facility] Absolute 10(9)/L 2:21 PM CDT LABORATORY Eosinophil 0.1 0.1 - 0.5 03/13/2019 [facility] Absolute 10(9)/L 2:21 PM CDT LABORATORY Basophil 0.0 0.0 - 0.3 03/13/2019 [facility] Absolute 10(9)/L 2:21 PM CDT LABORATORY Immature Gran % 0.8 (H) 0.0 - 0.5 03/13/2019 [facility] % 2:21 PM CDT LABORATORY Specimen Anatomical Collection Method / Collection Time Recei la Time (Source) Location / Volume Laterality Blood Venipuncture / 03/13/2019 2:15 03/13/2019 2:15 Unknown PM CDT PM CDT Veronica Heredia DO LAB_1 Performing Organization Address City/State/ZIP Code Phon e Number [facility] [address] [place] [phone] [phone] Cente documented in this encounter Visit Diagnoses Diagnosis Lightheadedness Dizziness and giddiness documented in this encounter Care Teams Oral Health Therapist Relationship Specialty Start Date End Date Veronica Heredia, DO PCP - General Family Practice 03/22/17 [address] [facility] [place] [address] documented as of this encounter
--- OUTSIDE RECORDS SUMMARY | 2022-08-15 14:52 | XMS_ITS | Encounter Summary ---
:1940 Author Organization Formerly [facility] Address [address] [facility] [place] [address] Care Team Providers Name Role Phone Veronica Heredia DO Primary Care Provider Reason for Referral Procedure/Equipment (Routine) - Incomplete Specialty Diagnoses / Procedures Referred By Contact Refer red To Contact Procedures Winsome Hanley DO MR Angio Neck W/WO IV Cont [address] [place], [place] [address] Referral ID Status Reason Start Date Expiration Date Visits V isits Requested Authorized [id number] Incomplete 06/08/2019 09/06/2020 1 1 Procedure/Equipment (Routine) - Incomplete Specialty Diagnoses / Procedures Referred By Contact Refer red To Contact Procedures Winsome Hanley DO MR Angio Head WO IV Cont [address] [place], [place] [address] Referral ID Status Reason Start Date Expiration Date Visits V isits Requested Authorized [id number] Incomplete 06/08/2019 09/06/2020 1 1 Procedure/Equipment (Routine) - Incomplete Specialty Diagnoses / Procedures Referred By Contact Refer red To Contact Procedures Winsome Hanley DO MR Brain W/WO IV Cont [address] [place], [place] [address] Referral ID Status Reason Start Date Expiration Date Visits V isits Requested Authorized [id number] Incomplete 06/08/2019 09/06/2020 1 1 (Routine) - Closed Specialty Diagnoses / Procedures Referred By Contact Refer red To Contact Procedures Almas Anderson MD ECG 12 Lead [address] [place], [place] [address] Referral ID Status Reason Start Date Expiration Date Visits Requ ested Visits Authorized [id number] Closed 06/08/2019 09/06/2020 1 1 Reason for Visit Reason Comments LIGHTHEADED--ED Encounter Details Date Type Department Care Team Description 06/08/2019 [facility] Thien Hanley DO D[facility] [address] [place] [id number] [phone] Social History Tobacco Use Types Packs/Day Years [...] Sign Reading Time Taken Comments Blood Pressure 157/85 06/08/2019 11:30 AM CDT Pulse 73 06/08/2019 11:30 AM CDT Temperature 36.8 ??C (98.2 ??F) 06/08/2019 7:26 AM CDT Respiratory Rate 13 06/08/2019 8:50 AM CDT Oxygen Saturation 97% 06/08/2019 11:30 AM CDT Inhaled Oxygen Concentration - - Weight - - Height - - Body Mass Index - - documented in this encounter Discharge Instructions AttachmentsThe following attachments cannot be sent through Care Everywhere. Dizziness (Korean)Lightheadedness or Faintness (Korean)Vertigo (Korean) documented in this encounter Medications at Time [...] documented as of this encounter ED Notes Mary Blue RN - 06/08/2019 11:49 AM CDT Emergency Center Nursing Discharge Note Discharge vital signs: BP (!) 157/85 Pulse 73 Temp 36.8 ??C (98.2 ??F) (Oral) Resp 13 SpO2 97% The patient was given printed discharge papers and signed to verify that she received the information and understands the instructions. Teach back method was used in reviewing the discharge instructions and the patient verbalized her understanding. The patient denied having unanswered questions when asked. The patient denied potential challenges to this plan when asked. The patient denied additional needs at discharge when asked. The patient was safely discharged to home in stable condition - ambulates independently - via taxi. T Winsome Hanley DO - 06/08/2019 7:50 AM CDT Chief Complaint: Dizziness HPI: Michele Angulo is a 78 y.o. female with a past medical history of hypertension and hypothyroidism who presents to the emergency center via EMS for evaluation of dizziness. The patient reports that she has been having intermittent dizziness for more than a month and believes this may be associated with thenew thyroid medication she started in March. The patient's dizziness had gotten better for the past 3 weeks, but came back on , about 4 days ago. She as well had a room-spinning episode on Sunday, which she described as her feeling like weight. These episodes last less than a minute. The patient expressed concerns about being alone during these episode as they cause her to feel like she is going to faint or black out. She also feels weak and shaky during these times. The patient reports she has been making sure to keep hydrated and drinking a lot of water. She has also experienced foot cramping while sleeping. She denies any fevers, coughs, or chest pain. The patient has an upcoming appointment to discuss her new thyroid medication on 06/11 Review of Systems Constitutional: Negative for fever. Respiratory: Negative for cough. Cardiovascular: Negative for chest pain and palpitations. Neurological: Positive for dizziness, weakness and light-headedness. Medications: levothyroxine (SYNTHROID) 88 MCG tablet Losartan Potassium-HCTZ (HYZAAR) 100-12.5 MG tablet metoprolol succinate (TOPROL XL) 25 MG 24 hour release tablet metoprolol succinate (TOPROL XL) 50 MG 24 hour release tablet simvastatin (ZOCOR) 20 MG tablet Allergies: Contrast [Iodinated Diagnostic Agents] Penicillins Sulfa Antibiotics Past Medical History: Aspirin long-term use Calculus of kidney right side diagnosed CT scan in [place] asymptomatic Endometrial cancer colonoscopy 2007 due 2018 Hyperlipidemia Obesity Postmenopausal Zoster Essential hypertension Esophageal reflux Hypothyroidism Past Surgical History: BUNIONECTOMY HYSTERECTOMY SALPINGO-OOPHORECTOMY Family History: Cancer, liver Kidney/Bladder Disease Arthritis Depression High Blood Pressure Anxiety Thyroid Disorder Heart Failure Social History: The patient is single, a non-smoker, and consumes alcohol rarely. Triage Vitals Temp 06/08/19 0726 36.8 ??C (98.2 ??F) Temp src 06/08/19 0726 Oral Pulse 06/08/19 0704 86 Resp 06/08/19 0705 18 BP 06/08/19 0704 102/77 SpO2 06/08/19 0704 96 % Physical Exam Nursing note and vitals reviewed. Constitutional: Patient is oriented to person, place, and time. HENT: Head: Normocephalic and atraumatic. Mouth/Throat: Oropharynx is clear and moist and mucous membranes are normal. Eyes: Conjunctivae and EOM are normal. Pupils are equal, round, and reactive to light. Neck: Normal range of motion. Neck supple. Cardiovascular: Normal rate, regular rhythm, S1 normal, S2 normal, normal heart sounds and intact distal pulses. No murmur heard. Pulmonary/Chest: Effort normal and breath sounds normal. Patient has no wheezes, rhonchi, or rales. Abdominal: Soft. Bowel sounds are normal. Patient exhibits no mass. There is no tenderness. There isno rigidity, no rebound and no guarding. Musculoskeletal: Normal range of motion. Patient exhibits no edema. Lymphadenopathy: Patient has no cervical adenopathy. Neurological: Patient is alert and oriented to person, place, and time. Normal strength and intact cranial nerves. No cranial nerve deficit. Coordination normal. Normal finger to nose and heel to mills bilaterally. No dysphasia. Clear speech. 5/5 strength in all extremities. Skin: Skin is warm and dry. No rash noted. Psychiatric: Mood and affect normal. ECG: ECG Results ECG 12 Lead (Final result) Result time 06/08/19 16:19:48 Final result Narrative: Poor data quality Normal sinus rhythm Normal ECG When compared with ECG of 13-MAR-2019 14:53, No significant change was found Confirmed by WINSOME HANLEY ([id number]) on 06/08/2019 4:19:43 PM Imaging: Results per Radiology (please see formal Radiology report for further details). MR Brain W/WO IV Cont: 1. No evidence for acute infarct. 2. Stable mild chronic microvascular ischemic changes and mild volume loss. 3. No abnormal intra-axial enhancement. 4. The cerebellopontine angle cisterns and internal auditory canals are normal in appearance. MR Angio Head WO IV Cont: No evidence of intracranial aneurysm or stenosis. MR Angio Neck W/WO IV Cont: Negative MR angiogram of the neck without and with IV contrast. Laboratory Studies: CBC with Differential: WBC 5.6 (WNL), Hgb 12.9 (WNL), Plts 178 (WNL), RDW 11.8 (L), o/w WNL Basic Metabolic Panel: Cr. 0.92 (WNL), GFR 60 (L), o/w WNL Troponin 8:29: <0.01 (WNL) TSH: 0.70 (WNL) Magnesium: 1.8 (WNL) Interventions: 0817 Diphenhydramine 25 mg, IV 1030 Gadobutrol 8 mL, IV ED Course: Nursing notes and vitals were reviewed. Past medical records were reviewed. I performed an exam of the patient as detailed above. The above ECG, imaging and labs were ordered (see results above). The above interventions were administered. Findings and plan explained to the patient. I fully addressed and answered all questions and concerns the patient had. The patient was discharged home in stable condition with instructions regarding supportive care, medications, and reasons to return as well as the importance of close follow-up was reviewed. Following our examination and treatment, any identified emergency medical condition has resolved. Patient is stable for discharge and may pursue follow-up care as recommended. [facility] EC Vials: Temp: 36.8 ??C (98.2 ??F) (06/08 726) Temp src: Oral (06/08 726) Pulse: 73 (06/08 1130) Resp: 13 (06/08 0850) BP: 157/85 (06/08 1130) SpO2: 97 % (06/08 1130) Impression and Plan: Michele Angulo is a 78 y.o. female presenting today with some complaints of intermittent dizziness that have escalated over the last 1 week. She describes room-spinning dizziness and sometimes a sensation of light-headedness and near syncope in the setting of postural changes. Her work up appears reassuring including MRI and MRA, which shows no evidence of posterior circulation compromised or infarction.Her laboratory studies including thyroid and electrolyte panels are reassuring and negative. She hasno fever or infectious symptoms. She is asymptomatic on my evaluation. I do not feel she requires a c ode 98 activation and she is out of the window for any kind of TPA consideration. These episodes maycoincide with BPPV and I did recommend OTC benadryl or meclizine PRN. Since she has no acute findings noted on imaging, I do think she is stable to keep her outpatient appointment that is already scheduled for this coming week with her primary physician. I recommend maintaining this appointment for reevaluation of these symptoms and then outpatient Holter monitor was requested through our computer order system. This can rule out arhythmia. She has a normal sinus rhythmon EKG and a negative troponin. She has no history of arhythmia or atrial fibrillation, but more monitoring can be done on an out patient basis. Return precautions were discussed and she can be sent home in stable condition. Diagnosis: Final diagnoses: [R42] Dizziness I, Yamilka Jessica, am serving as a scribe to document services personally performed by Dr. Hanley, based on my observations and the provider's statements to me. 06/08/2019 [facility] Portions of this medical record were completed by a scribe. UPON MY REVIEW AND AUTHENTICATION BY ELECTRONIC SIGNATURE, this confirms (a) I performed the applicable clinical services, and (b) the recordis accurate. Winsome Hanley DO 06/08/19 1631 documented in this encounter Plan of Treatment Not on filedocumented as of this encounter Procedures Procedure Name Priority Date/Time Associated Comments Diagnosis MR ANGIO HEAD WO IV STAT 06/08/2019 10:13 Resu lts for this CONT AM CDT procedure are i n the results section. MR ANGIO NECK W/WO IV STAT 06/08/2019 10:13 Re sults for this CONT AM CDT procedure are i n the results section. MR BRAIN W/WO IV CONT STAT 06/08/2019 10:13 Re sults for this AM CDT procedure are i n the results section. CBC AND DIFFERENTIAL STAT 06/08/2019 7:40 Resu lts for this PANEL AM CDT procedure are i n the results section. RAINBOW DRAW AND HOLD STAT 06/08/2019 7:40 Res ults for this AM CDT procedure are i n the results section. EXTRA LIGHT GREEN STAT 06/08/2019 7:40 Results for this TUBE AM CDT procedure are i n the results section. COMPLETE BLOOD STAT 06/08/2019 7:40 Results fo r this COUNT-W/DIFF AM CDT procedure are i n the results section. TSH, SENSITIVE STAT Add-On 06/08/2019 7:40 Results fo r this AM CDT procedure are i n the results section. BASIC METABOLIC PANEL STAT 06/08/2019 7:40 Res ults for this AM CDT procedure are i n the results section. TROPONIN I STAT 06/08/2019 7:40 Results for this AM CDT procedure are i n the results section. MAGNESIUM STAT Add-On 06/08/2019 7:40 Results for this AM CDT procedure are i n the results section. ECG 12 LEAD INPATIENT STAT 06/08/2019 7:15 Res ults for this AM CDT procedure are i n the results section. documented in this encounter Results MR Angio Neck W/WO IV Cont (06/08/2019 10:13 AM CDT) Anatomical Region Laterality Modality Neck, Vascular, C-Spine, Skeletal Magnet ic Resonance Specimen (Source) Anatomical Collection Method Collection Time Re ceived Time Location / / Volume Laterality 06/08/2019 9:12 AM CDT Impressions 06/08/2019 10:35 AM CDT INDICATION: eval for posterior circulation ?? TECHNIQUE: ??Wluf-lj-wefugg and gadolini um bolus MR angiogram of the neck, 9 mL GADOBUTROL 1 MMOL/ML IV SOLN. ?? COMPARISON: ??08/01/2017 ?? FINDINGS: Arch: ??Normal arch anatomy. ??Visualize d aortic arch and brachiocephalic vessels are patent and non-stenotic. ?? Right Neck: The common carotid artery, i nternal carotid artery, external carotid artery, and vertebral artery appear patent and nonstenotic. Left Neck: The common carotid artery, in ternal carotid artery, external carotid artery, and vertebral artery appear patent and nonstenotic. ? IMPRESSION: ??Negative MR angiogram of t he neck without and with IV contrast. ?? Procedure Note Sami Burton MD - 06/08/2019Forma tting of this note might be different from the original. IMPRESSION INDICATION: eval for posterior circulati on TECHNIQUE: Knbw-bq-ufpsny and gadolinium bolus MR angiogram of the neck, 9 mL GADOBUTROL 1 MMOL/ML IV SOLN. COMPARISON: 08/01/2017 FINDINGS: Arch: Normal arch anatomy. Visualized ao rtic arch and brachiocephalic vessels are patent and non-stenotic. Right Neck: The common carotid artery, i nternal carotid artery, external carotid artery, and vertebral artery appear patent and nonstenotic. Left Neck: The common carotid artery, in ternal carotid artery, external carotid artery, and vertebral artery appear patent and nonstenotic. IMPRESSION: Negative MR angiogram of the neck without and with IV contrast. Winsome Hanley DO RAD MRI MR Angio Head WO IV Cont (06/08/2019 10:13 AM CDT) Anatomical Region Laterality Modality Head, Vascular Magnetic Resonance Specimen (Source) Anatomical Collection Method Collection Time Re ceived Time Location / / Volume Laterality 06/08/2019 9:12 AM CDT Impressions 06/08/2019 10:37 AM CDT INDICATION: eval for vertigo and posterior circulation TECHNIQUE: Xrki-ro-dhdeel MRA of the cir levon of Kim. COMPARISON: 08/01/2017 ?? FINDINGS: Distal internal carotid arteries: Patent and nonstenotic. Anterior cerebral arteries: Patent and n onstenotic. Middle cerebral arteries: Patent and non stenotic. Posterior cerebral arteries: Patent and nonstenotic. Vertebrobasilar system: Patent and nonst enotic. IMPRESSION: ??No evidence of intracrania l aneurysm or stenosis. ?? Procedure Note Sami Burton MD - 06/08/2019Forma tting of this note might be different from the original. IMPRESSION INDICATION: eval for vertigo and posteri or circulation TECHNIQUE: Gyki-dy-ewwfvl MRA of the cir levon of [place]. COMPARISON: 08/01/2017 FINDINGS: Distal internal carotid arteries: Patent and nonstenotic. Anterior cerebral arteries: Patent and n onstenotic. Middle cerebral arteries: Patent and non stenotic. Posterior cerebral arteries: Patent and nonstenotic. Vertebrobasilar system: Patent and nonst enotic. IMPRESSION: No evidence of intracranial aneurysm or stenosis. Winsome Hanley DO RAD MRI MR Brain W/WO IV Cont (06/08/2019 10:13 AM CDT) Anatomical Region Laterality Modality Head Magnetic Resonance Specimen (Source) Anatomical Collection Method Collection Time Re ceived Time Location / / Volume Laterality 06/08/2019 9:12 AM CDT Impressions 06/08/2019 10:32 AM CDT INDICATION: eval for intermittent vertigo; hx of endometrial cancer; ?? TECHNIQUE: ??MRI of the head with and wi thout contrast using tumor protocol, 9 mL GADOBUTROL 1 MMOL/ML IV SOLN. COMPARISON: 08/01/2017 FINDINGS: ??Normal diffusion. Punctate T 2 and FLAIR signal hyperintensities scattered within the cerebral white matter. Mild volume loss. Normal flow voids within the major intracranial vessels. Normal enhancement. The cerebellopontine angle cisterns and internal auditory canals are normal in appearance. IMPRESSION: ?? 1. No evidence for acute infarct. 2. Stable mild chronic microvascular isc hemic changes and mild volume loss. 3. No abnormal intra-axial enhancement. 4. The cerebellopontine angle cisterns a nd internal auditory canals are normal in appearance. Procedure Note Sami Burton MD - 06/08/2019Forma tting of this note might be different from the original. IMPRESSION INDICATION: eval for intermittent vertig o; hx of endometrial cancer; TECHNIQUE: MRI of the head with and with out contrast using tumor protocol, 9 mL GADOBUTROL 1 MMOL/ML IV SOLN. COMPARISON: 08/01/2017 FINDINGS: Normal diffusion. Punctate T2 and FLAIR signal hyperintensities scattered within the cerebral white matter. Mild volume loss. Normal flow voids within the major intracranial vessels. Normal enhancement. The cerebellopontine angle cisterns and inte rnal auditory canals are normal in appearance. IMPRESSION: 1. No evidence for acute infarct. 2. Stable mild chronic microvascular isc hemic changes and mild volume loss. 3. No abnormal intra-axial enhancement. 4. The cerebellopontine angle cisterns a nd internal auditory canals are normal in appearance. Winsome THOMPSON MRI Magnesium (06/08/2019 7:40 AM CDT) athologist Signature Magnesium 1.8 1.6 - 2.6 06/08/2019 [facility] mg/dL 8:32 AM CDT LABORATORY Specimen Anatomical Collection Method / Collection Time Recei la Time (Source) Location / Volume Laterality Blood Venipuncture / 06/08/2019 7:40 06/08/2019 7:50 Unknown AM CDT AM CDT Winsome Hanley DO LAB_1 Performing Organization Address [facility] Phon e Number [facility] [address] [place] [address] Troponin I (06/08/2019 7:40 AM CDT) P athologist Signature Troponin I <0.01 0.00 - 0.03 06/08/2019 [facility] ng/mL 8:29 AM CDT LABORATORY Specimen Anatomical Collection Method / Collection Time Recei la Time (Source) Location / Volume Laterality Blood Venipuncture / 06/08/2019 7:40 06/08/2019 8:12 Unknown AM CDT AM CDT Winsome Hanley DO LAB_1 Performing Organization Address [facility] Phon e Number [facility] [address] [place] [address] TSH (06/08/2019 7:40 AM CDT) P athologist Signature TSH, Sensitive 0.70 0.30 - 06/08/2019 [facility] 4.50 8:46 AM CDT LABORATORY uIU/mL Specimen Anatomical Collection Method / Collection Time Recei la Time (Source) Location / Volume Laterality Blood Venipuncture / 06/08/2019 7:40 06/08/2019 7:50 Unknown AM CDT AM CDT Winsome Hanley DO LAB_1 Performing Organization Address [facility] Phon e Number [facility] [address] [place] [address] Extra Light Green Tube (06/08/2019 7:40 AM CDT) P athologist Signature Extra Light done 06/08/2019 [facility] Green Tube 7:50 AM CDT LABORATORY Drawn Specimen Anatomical Collection Method / Collection Time Recei la Time (Source) Location / Volume Laterality Blood Venipuncture / 06/08/2019 7:40 06/08/2019 7:50 Unknown AM CDT AM CDT Winsome Hanley DO LAB_1 Performing Organization Address [facility]/ZIP Code Phon e Number [facility] [address] [place] [address] (ABNORMAL) Complete Blood Count-W/Diff (06/08/2019 7:40 AM CDT) [facility] Method Time Signature WBC 5.6 3.5 - 10.5 06/08/2019 [facility] x10(9)/L 7:55 AM CDT LABORATORY RBC 4.32 3.90 - 06/08/2019 [facility] 5.03 7:55 AM CDT LABORATORY x10(12)/L Hemoglobin 12.9 12.0 - 06/08/2019 [facility] 15.5 g/dL 7:55 AM CDT LABORATORY HCT 39.1 34.9 - 06/08/2019 [facility] 44.5 % 7:55 AM CDT LABORATORY MCV 90.5 80.0 - 06/08/2019 [facility] 100.0 fL 7:55 AM CDT LABORATORY MCH 29.9 27.6 - 06/08/2019 [facility] 33.3 pg 7:55 AM CDT LABORATORY MCHC 33.0 31.5 - 06/08/2019 [facility] 35.2 g/dL 7:55 AM CDT LABORATORY RDW 11.8 (L) 11.9 - 06/08/2019 [facility] 15.5 % 7:55 AM CDT LABORATORY Platelets 178 150 - 450 06/08/2019 [facility] x10(9)/L 7:55 AM CDT LABORATORY Automated NRBC 0 <=0 /100 06/08/2019 [facility] WBC 7:55 AM CDT LABORATORY Neutrophil 3.8 1.7 - 7.0 06/08/2019 [facility] Absolute 10(9)/L 7:55 AM CDT LABORATORY Lymphocyte 1.1 1.0 - 4.8 06/08/2019 [facility] Absolute 10(9)/L 7:55 AM CDT LABORATORY Monocytes 0.6 0.2 - 0.9 06/08/2019 [facility] Absolute 10(9)/L 7:55 AM CDT LABORATORY Eosinophil 0.0 0.0 - 0.5 06/08/2019 [facility] Absolute 10(9)/L 7:55 AM CDT LABORATORY Basophil 0.0 0.0 - 0.3 06/08/2019 [facility] Absolute 10(9)/L 7:55 AM CDT LABORATORY Immature Gran % 0.4 0.0 - 0.5 06/08/2019 [facility] % 7:55 AM CDT LABORATORY Specimen Anatomical Collection Method / Collection Time Recei la Time (Source) Location / Volume Laterality Blood Venipuncture / 06/08/2019 7:40 06/08/2019 7:50 Unknown AM CDT AM CDT Almas Anderson MD LAB_1 Performing Organization Address City/State/ZIP Code Phon e Number [facility] [address] [place] [address] (ABNORMAL) Basic Metabolic Panel (06/08/2019 7:40 AM CDT) Analysis Performed At Patho logist Time Signature Sodium 141 136 - 145 06/08/2019 [facility] mmol/L 8:32 AM CDT LABORATORY Potassium 3.5 3.5 - 5.1 06/08/2019 [facility] mmol/L 8:32 AM CDT LABORATORY Chloride 103 98 - 109 06/08/2019 [facility] mmol/L 8:32 AM CDT LABORATORY CO2 27 20 - 29 06/08/2019 [facility] mmol/L 8:32 AM CDT LABORATORY Anion Gap 11 7 - 16 06/08/2019 [facility] mmol/L 8:32 AM CDT LABORATORY Calcium 9.5 8.4 - 10.4 06/08/2019 [facility] mg/dL 8:32 AM CDT LABORATORY BUN 16 7 - 26 06/08/2019 [facility] mg/dL 8:32 AM CDT LABORATORY Creatinine 0.92 0.55 - 06/08/2019 [facility] 1.02 mg/dL 8:32 AM CDT LABORATORY GFR, Estimated 60 (L) >60 06/08/2019 [facility] mL/min/1.7 8:32 AM CDT LABORATORY 3m2 GFR, Est If >60 >60 06/08/2019 [facility] mL/min/1.7 8:32 AM CDT LABORATORY Rwandan 3m2 Glucose 113 (H) 70 - 100 06/08/2019 [facility] mg/dL 8:32 AM CDT LABORATORY Comment: The given reference range is fo r the fasting state. Non-fasting reference range for glucose is 70 - 180 mg/dL. Specimen Anatomical Collection Method / Collection Time Recei la Time (Source) Location / Volume Laterality Blood Venipuncture / 06/08/2019 7:40 06/08/2019 7:50 Unknown AM CDT AM CDT Almas Anderson MD LAB_1 Performing Organization Address City/State/ZIP Code Phon e Number [facility] [address] [place] [address] ECG 12 Lead (06/08/2019 7:15 AM CDT) P athologist Signature Ventricular Rate 70 BPM [facility] Atrial Rate 70 BPM [facility] P-R Interval 208 ms [facility] QRS Duration 96 ms [facility] QT 402 ms [facility] QTc 434 ms [facility] P [place] 53 degrees [facility] R [place] 8 degrees [facility] T [place] 14 degrees [facility] Specimen (Source) Anatomical Collection Method Collection Time Re ceived Time Location / / Volume Laterality 06/08/2019 7:15 AM CDT Narrative [facility] - 06/08/2019 4:19 PM CDT Poor data quality Sinus rhythm Normal ECG When compared with ECG of 13-MAR-2019 14 :53, No significant change was found Confirmed by WINSOME HANLEY ([id number]) on 06/08/2019 4:19:43 PM Procedure Note Winsome Hanley, DO / Epic, Internal Pr ocessing - 02/17/2020 Poor data quality Sinus rhythm Normal ECG When compared with ECG of 13-MAR-2019 14 :53, No significant change was found Confirmed by WINSOME HANLEY ([id number]) on 06/08/2019 4:19:43 PM Almas Anderson MD PN ECG ORDERABLES Performing Organization Address City/[facility]/ZIP [facility] Phon e Number [facility] [address] [place] [address] documented in this encounter Visit Diagnoses Diagnosis Dizziness Dizziness and giddiness Triage Assessment Note - Brandyn Cerda RN - 06/08/2019 7:04 AM CDT Patient in via ems, patient has been dizzy for last month, patient has not seen provider, patient was recently started on hypothyroid medication, documented in this encounter Administered Medications Inactive Administered Medications - up to 3 most recent administrations Medication Order MAR Action Action Date Dose Rate Site 0.9% sodium chloride bolus 100 mL Started 06/08/2019 10:30 AM CDT 100 mL 100 mL, Intravenous, Administer over 1 Hours, ONCE, On 06/08/19 at 1030, For 1 dose, Radiology diphenhydrAMINE (BENADRYL) injection 25 mg Given 06/08/2019 8:17 AM CDT 25 mg 25 mg, Intravenous, ONCE, On 06/08/19 at 0830, For 1 dose gadobutrol (GADAVIST) 1 MMOL/ML injectio n 9 mL Given 06/08/2019 10:30 AM CDT 9 mL 9 mL, Intravenous, ONCE, On 06/08/19 at 1030, For 1 dose, Radiology sodium chloride 0.9% 0.9 % injection - ADS Given 06/08/2019 7:41 AM CDT 10 mL Override Pull Starting on 06/08/19 at 0733, Until 06/08/19 at 0741, For 1 dose, Geeta Tuttle : cabinet override sodium chloride 0.9% 0.9 % injection - ADS Given 06/08/2019 8:17 AM CDT 10 mL Override Pull Starting on 06/08/19 at 0814, Until 06/08/19 at 0817, For 1 dose, Geeta Tuttle : cabinet override documented in this encounter Active and Recently Administered Medications Times are shown in CDT. Scheduled Medication Order 06/06/2019 06/07/2019 06/08/2019 0.9% sodium chloride bolus 100 mL (COMPLETED) 1030 (Started - Provider: Usha Dela Cruz)1130 (Due: Infused - Provider: Usha Dela Cruz) 100 mL, Intravenous, Administer over 1 H ours, ONCE, 06/08/19 at 1030, For 1 dose, Radiology diphenhydrAMINE (BENADRYL) injection 25 mg (COMPLETED) 0817 (Given - Provider: Geeta Tuttle RN) 25 mg, Intravenous, ONCE, 06/08/19 at 0830, For 1 dose gadobutrol (GADAVIST) 1 MMOL/ML injection 9 mL (COMPLETED) 1030 (Given - Provider: Usha Dela Cruz) 9 mL, Intravenous, ONCE, 06/08/19 at 1030, For 1 dose, Radiolo gy No Frequency Medication Order 06/06/2019 06/07/2019 06/08/2019 sodium chloride 0.9% 0.9 % injection - ADS Override Pull (COMPLE ALCON) 0741 (Given - Provider: Geeta Tuttle, RN) Starting Guston 06/08/19 at 0733, For 1 dose, Geeta Tuttle : cab inet override sodium chloride 0.9% 0.9 % injection - ADS Override Pull ([facility] ALCON) 0817 (Given - Provider: Geeta Tuttle, AYALA) Starting Guston 06/08/19 at 0814, For 1 dose, Geeta Tuttle : cab inet override documented in this encounter Care Teams Tool Radial Drill Press Set Up Operator Relationship Specialty Start Date End Date Veronica Heredia, PCP - General Family Practice 03/22/[address] [facility] [address] [place], [place] [address] documented as of this encounter
--- OUTSIDE RECORDS SUMMARY | 2022-08-15 14:52 | XMS_ITS | Encounter Summary ---
:1940 Author Organization [facility] Address [address] [place] [address] Care Team Providers Name Role Phone Veronica Heredia DO Primary Care Provider Reason for Visit Reason Comments Refill metoprolol succinate (TOPROL XL) 50 MG 24 hour release tablet [Pharmacy Med Name: METOPROLOL SUCC ER 50 MG TAB]; metoprolol succinate (TOPROL XL) 25 MG 24 hour release tablet [Pharmac y Med Name: METOPROLOL SUCC ER 25 MG TAB] Encounter Details Date Type Department Care Team Description 03/23/2020 Refill [facility] Veronica Heredia, DO Refill (metoprolol [address] [facility] [address] [facility] succinate (TOPROL XL) [address] [place] 24 [place] [address] [place], [place] tablet [Pharmacy Med [phone] 13936 Name: METOPROLOL SUCC ER [phone] (Wo rk) 50 MG TAB]; metoprolol succinate (TOPROL XL) 25 MG 24 hour rele ase tablet [Pharmac y Med Name: METOPROLO L SUCC ER 25 MG TAB]) Social History Tobacco Use [...] as of this encounter Nursing Notes Lisa Admas, RN - 03/25/2020 3:27 PM CDT Renewed medication per medication refill protocol. Requested Prescriptions Signed Prescriptions Disp Refills ??? metoprolol succinate (TOPROL XL) 25 MG 24 hour release tablet 90 Tablet 0 Sig: Take 1 Tab by mouth daily. Take with Toprol XL 50 mg tab to equal 75 mg. Authorizing Provider: VERONICA HEREDIA Ordering User: LISA ADAMS ??? metoprolol succinate (TOPROL XL) 50 MG 24 hour release tablet 90 Tablet 0 Sig: Take 1 Tablet by mouth daily. Authorizing Provider: VERONICA HEREDIA Ordering User: LISA ADAMS Refused Prescriptions Disp Refills ??? metoprolol succinate (TOPROL XL) 25 MG 24 hour release tablet [Pharmacy Med Name: METOPROLOL SUCC ER 25 MG TAB] 90 Tablet Sig: TAKE 1 TAB BY MOUTH DAILY. TAKE WITH TOPROL XL 50 MG TAB TO EQUAL 75 MG. Refused By: LISA ADAMS Reason for Refusal: Request Already Responded To By Other Means ??? metoprolol succinate (TOPROL XL) 50 MG 24 hour release tablet [Pharmacy Med Name: METOPROLOL SUCC ER 50 MG TAB] 90 Tablet 0 Sig: TAKE 1 TABLET BY MOUTH EVERY DAY Refused By: LISA ADAMS Reason for Refusal: Request Already Responded To By Other Means Interface, Out Surescripts Prov Query - 03/23/2020 11:03 AM CDT metoprolol succinate (TOPROL XL) 25 MG 24 hour release tablet [Pharmacy Med Name: METOPROLOL SUCC ER25 MG TAB] Medication started: 07/09/2017 Last ordered by VERONICA HEREDIA: 02/05/2019 (412 days ago) QTY: 90, Refills: 3, Sig: take 1 tab by mouth daily. take with toprol xl 50 mg tab to equal 75 mg. (unchanged) -> The requested strength (25 mg extended release oral tablet) was last ordered on 02/05/2019. The patient is taking 50 mg extended release oral tablet as of 02/05/2019. -> The medication is active at more than one strength (25 mg on 02/05/2019, 50 mg on 02/05/2019). -> Refill x 3 months (until due for an office visit) -> Calculate the quantity and number of refills manually. Last qualifying visit: 06/11/2019 (with VERONICA HEREDIA) (A more recent visit (in Family Practice with SUSAN ELLIOTT) was found) Next scheduled visit: None SBP: 114 mm Hg on 08/05/2019 DBP: 78 mm Hg on 08/05/2019 Powered by [employer], Reference: [id number], 03/23/2020 11:03:46 AM Ezequiel URBAN: YURY JUAREZ REFILL ([id number]) metoprolol succinate (TOPROL XL) 50 MG 24 hour release tablet [Pharmacy Med Name: METOPROLOL SUCC ER50 MG TAB] Medication started: 07/09/2017 Last ordered by VERONICA HEREDIA: 02/05/2019 (412 days ago) QTY: 90, Refills: 3, Sig: take 1 tablet by mouth daily. (changed but equivalent) -> The requested strength (50 mg extended release oral tablet) was last ordered on 02/05/2019. The patient is taking 25 mg extended release oral tablet as of 02/05/2019. -> The medication is active at more than one strength (50 mg on 02/05/2019, 25 mg on 02/05/2019). -> Refill x 3 months (until due for an office visit) Last qualifying visit: 06/11/2019 (with VERONICA HEREDIA) (A more recent visit (in Family Practice with SUSAN ELLIOTT) was found) Next scheduled visit: None SBP: 114 mm Hg on 08/05/2019 DBP: 78 mm Hg on 08/05/2019 Powered by [employer], Reference: [id number], 03/23/2020 11:03:46 AM CDT, Ezequiel: YURY FP REFILL ([id number]) documented in this encounter Plan of Treatment Not on filedocumented as of this encounter Visit Diagnoses Diagnosis Essential hypertension (HRC) Unspecified essential hypertension documented in this encounter Care Teams Laser Print Operator Relationship Specialty Start Date End Date Veronica Heredia, PCP - General Family Practice 03/22/[address] [facility] [address] [place], [place] [address] documented as of this encounter
--- OUTSIDE RECORDS SUMMARY | 2022-08-15 14:52 | XMS_ITS | Encounter Summary ---
:1940 Author Organization [facility] Address [address] [place] [address] Care Team Providers Name Role Phone RobleskarinaVeronica DO Primary Care Provider Encounter Details Date Type Department Care Team Description 06/13/2019 Lab Visit [facility] 3850 Screening for colon cancer Laboratory [address] [place] [address] Social History Tobacco Use Types Packs/Day Years [...] Name Priority Date/Time Associated Diagnosis Comme nts FIT COLON RECTAL Routine 06/13/2019 10:01 AM Screening for col on Results for this CANCER SCREENING CDT cancer procedure a re in the results section. documented in this encounter Results (ABNORMAL) FIT Colon Rectal Cancer Screening (06/13/2019 10:01 AM CDT) [facility] Method Time Signature FIT Specimen Positive (A) Negative 06/13/2019 [facility] 1 10:33 AM CDT 3850 LABORATORY Specimen Anatomical Collection Method Collection Time Receive d Time (Source) Location / / Volume Laterality Stool 06/13/2019 10:01 06/13/2019 AM CDT 10:01 AM CDT Veronica Heredia DO LAB_1 Performing Organization Address City/State/ZIP Code Phon e Number [facility] [address] [place], [place] [phone] [address] documented in this encounter Visit Diagnoses Diagnosis Screening for colon cancer Special screening for malignant neoplasm s, colon documented in this encounter Care Teams Sheet Metal Duct Installer Apprentice Relationship Specialty Start Date End Date Veronica Heredia DO PCP - General Family Practice 03/22/17 [address] [facility] [place] [address] documented as of this encounter
--- OUTSIDE RECORDS SUMMARY | 2022-08-15 14:53 | XMS_ITS | Encounter Summary ---
:1940 Author Organization [facility] Address [address] [place] [address] Care Team Providers Name Role Phone RobleskarinaVeronica DO Primary Care Provider Reason for Visit Reason Comments Diarrhea Encounter Details Date Type Department Care Team Description 07/26/2018 [facility] Leigh Conde MD Loose stools [place] [address] [place] [address] [place] [id number] [phone] Social History Tobacco Use Types Packs/Day Years [...] Sign Reading Time Taken Comments Blood Pressure 148/78 07/26/2018 10:05 AM CDT Pulse 78 07/26/2018 10:05 AM CDT Temperature 36.4 ??C (97.5 ??F) 07/26/2018 6:33 AM CDT Respiratory Rate 16 07/26/2018 10:05 AM CDT Oxygen Saturation 99% 07/26/2018 10:05 AM CDT Inhaled Oxygen Concentration - - Weight 84.8 kg (187 lb) 07/26/2018 6:33 AM CDT Height 162.6 cm (5' 4) 07/26/2018 6:33 AM CDT Body Mass Index 32.1 07/26/2018 6:33 AM CDT documented in this encounter Discharge Instructions AttachmentsThe following attachments cannot be sent through Care Everywhere. DIARRHEA ([place]ORE[place])documented in this encounter Medications at Time of Discharge Medication Sig Dispensed Refills Start Date End Date acetaminophen (TYLENOL) Take 325-650 mg by 0 325 MG tablet mouth every 4 hours as needed for Pain. cholecalciferol (VITAMIN Take 1,000 Units by 0 D3) 1000 units tablet mouth daily. aspirin EC 81 MG enteric Take 1 tablet by 13 07/1007/29/2018 coated tablet mouth daily (every 24 hours). losartan (COZAAR) 100 MG TAKE 1 TAB BY MOUTH 90 Tab 3 02/05/2019 tabletIndications: DAILY. Essential hypertension (HRC) metoprolol succinate Take 1 Tab by mouth 90 Tablet 3 201702/05/2019 (TOPROL XL) 25 MG 24 hour daily. Take with release Toprol XL 50 mg tab tabletIndications: to equal 75 mg. Essential hypertension (HRC) metoprolol succinate TAKE 1 TAB BY MOUTH 90 Tab 3 201702/05/2019 (TOPROL XL) 50 MG 24 hour DAILY. DISCONTINUE release tablet ATENOLOL. simvastatin (ZOCOR) 20 MG TAKE ONE TABLET BY 90 Tablet 3 02/05/2019 tabletIndications: MOUTH DAILY Hyperlipidemia, unspecified hyperlipidemia type (HRC) documented as of this encounter ED Notes Caridad Nina RN - 07/26/2018 10:05 AM CDT Pt DC'd to home- no questions at time of DC- pt expresses understanding of DC instructions and follow up Leigh Conde MD - 07/26/2018 6:44 AM CDT Chief Complaint: Diarrhea HPI: Michele Angulo is a 77 y.o. female with recent diagnosis of stage 1A grade 2 endometrial cancer s/p TLH and BSO on 06/12 who presents to the emergency center for evaluation of diarrhea x 1 week. The patient has been feeling very well post-operatively, up until 1 week ago when she began to have several episodes of diarrhea per day. The stool is watery, non-bloody. Yesterday she had upwards of 8 bowel movements, this morning she has already had 3 (currently 0700). Imodium has not improved her symptoms. She has associated abdominal cramping, but no constant pain. She presents here as she is concerned for dehydration. No recent antibiotic use, no sick contacts, or contact with infectious diarrhea. She roya es fevers, chills, cough, and urinary symptoms. The patient travels to her home in [place] on 07/31. Medications: acetaminophen (TYLENOL) 325 MG tablet aspirin EC 81 MG enteric coated tablet cholecalciferol (VITAMIN D3) 1000 units tablet losartan (COZAAR) 100 MG tablet metoprolol succinate (TOPROL XL) 25 MG 24 hour release tablet simvastatin (ZOCOR) 20 MG tablet Allergies: Contrast [Iodinated Diagnostic Agents] Penicillins Sulfa Antibiotics Past Medical History: Endometrial cancer Kidney stone Hyperlipidemia Hypertension Obesity Zoster Esophageal reflux Past Surgical History: Bunionectomy Hysterectomy Family History: Arthritis Liver cancer Kidney disease Depression Hypertension Anxiety Social History: The patient is single, a nonsmoker, and rarely consumes alcohol. Review of Systems Constitutional: Negative for chills and fever. Respiratory: Negative for cough. Gastrointestinal: Positive for abdominal pain (cramping with BM) and diarrhea. Negative for blood instool, nausea and vomiting. Genitourinary: Negative for dysuria and frequency. All other systems reviewed and are negative. Triage Vitals Temp 07/26/18 0633 36.4 ??C (97.5 ??F) Temp src 07/26/18 0633 Oral Pulse 07/26/18 0633 80 Resp 07/26/18 0633 16 BP 07/26/18 0633 163/89 SpO2 07/26/18 0633 95 % Physical Exam VITAL SIGNS: BP (!) 148/78 Pulse 78 Temp 36.4 ??C (97.5 ??F) (Oral) Resp 16 Ht 1.626 m (5' 4) Wt 84.8 kg (187 lb) SpO2 99% BMI 32.1 kg/m2 Constitutional: Well appearing in no distress HENT: Normocephalic, atraumatic, oropharynx moist, no oral exudates, Nose normal. Neck: normal range of motion, no tenderness, supple. Eyes: PERRL, EOMI, conjunctiva normal, no discharge. Sclera anicteric. Cardiovascular: Normal heart rate, normal rhythm, no murmurs, no rubs, no gallops. Respiratory: Normal breath sounds, no respiratory distress, no wheezing, no chest tenderness. GI: Bowel sounds normal, Soft, no tenderness, no masses, no pulsatile masses. : No CVA tenderness. Skin: Warm, dry, no erythema, no rash. Musculoskeletal:No tenderness to palpation or major deformities noted. Neurologic: Alert & oriented x 3, normal motor function, normal sensory function, no focal deficits noted. Psych: normal affect Laboratory: CBC with Differential: WBC 6.8 (WNL), Hgb 12.4 (WNL), Plts 205 (WNL) o/w WNL Complete Metabolic Panel: Cr. 0.88 (WNL) o/w WNL Enteric stool pathogens panel: pending ED Course: Interventions: 0750 Normal Saline 1 L, IV Nursing notes and vitals were reviewed. Past medical records were reviewed. I performed an exam of the patient as detailed above. The above labs were ordered and interventions administered. Following our examination and treatment, any identified emergency medical condition has resolved. Patient is stable for discharge and may pursue follow-up care as recommended. Findings and plan explained to the patient. I fully addressed and answered all questions and concerns the patient had. The patient was discharged home, status stable, with instructions regarding supportive care, medications, and reasons to return. Last EC Vitals: Temp: 36.4 ??C (97.5 ??F) (07/26 633) Temp src: Oral (07/26 633) Pulse: 78 (07/26 1005) Resp: 16 (07/26 1005) BP: 148/78 (07/26 1005) SpO2: 99 % (07/26 100) Impression and Plan: Michele Angulo is a 77 y.o. female who is presenting with 2 weeks of intermittent loose stools. At this time, no abdominal tenderness concerning for intraabdominal infectious process including diverticulitis or appendicitis. No indication for CT scan. The patient was hydrated, no evidence of significant el ectrolyte abnormality. She was given hydration here. She was able to give a stool sample testing is pending. She will be discharged to home. She understands strict return precautions. Diagnosis: Final diagnoses: [R19.5] Loose stools Caridad Tucker, am serving as a scribe to document services personally performed by Dr. Conde, based on my observations and the provider's statements to me. 07/26/2018 [facility] Portions of this medical record were completed by a scribe. UPON MY REVIEW AND AUTHENTICATION BY ELECTRONIC SIGNATURE, this confirms (a) I performed the applicable clinical services, and (b) the recordis accurate. Leigh Conde MD 07/26/18 1157 documented in this encounter Plan of Treatment Not on filedocumented as of this encounter Procedures Procedure Name Priority Date/Time Associated Comments Diagnosis ENTERIC STOOL STAT 07/26/2018 9:46 AM Results for this PATHOGENS, MOLECULAR CDT procedu re are in DETECTION PANEL the results section. EMERGENCY CENTER DRAW STAT 07/26/2018 7:02 AM Results for this AND HOLD CDT procedure are i n the results section. COMPLETE BLOOD STAT 07/26/2018 7:02 AM Results for this COUNT-W/DIFF CDT procedure are i n the results section. COMP METABOLIC PANEL STAT 07/26/2018 7:02 AM R esults for this CDT procedure are i n the results section. DIFFERENTIAL STAT 07/26/2018 7:02 AM Results f or this CDT procedure are i n the results section. documented in this encounter Results Enteric Stool Pathogens Panel (07/26/2018 9:46 AM CDT) [facility] Method Time Signature Source Stool PN SOFT Site PN SOFT Enteric Stool Negative by PCR for Campylobacter group (C. coli, C. 07/26/2018 PN SOFT Pathogens jejuni, and C. kassi), Salmonella species, Shigella species 10:26 PM Panel (including S. dysenteriae, S. boydii, S. sonnei, and S. CDT flexneri), ??Vibrio group (V. cholerae and V. parahaemolyticus), Yersinia enterocolitica, Shiga Toxin 1 and 2, Norovirus (GI and GII), and Rotavirus (A). Specimen (Source) Anatomical Collection Method Collection Time Re ceived Time Location / / Volume Laterality Stool: 07/26/2018 9:46 AM CDT Narrative PN SOFT - 07/26/2018 10:26 PM CDT [facility] [address] [place] [address], [place] [address], CLIA Number [id number] Leigh Conde MD LAB_1 Performing Organization Address [facility] Phon e Number PN SOFT [address] [place] [address] (ABNORMAL) Differential (07/26/2018 7:02 AM CDT) [facility] Method Time Signature Absolute 4.3 1.8 - 8.0 PN SOFT Neutrophils k/cmm Absolute 1.2 1.1 - 4.0 PN SOFT Lymphocytes k/cmm Absolute 1.0 (H) 0.2 - 0.8 PN SOFT Monocytes k/cmm Absolute 0.3 0.0 - 0.5 PN SOFT Eosinophils k/cmm Absolute 0.0 0.0 - 0.2 PN SOFT Basophils k/cmm Immature 0.6 (H) 0.0 - 0.5 PN SOFT Granulocytes % Specimen Anatomical Collection Method Collection Time Receive d Time (Source) Location / / Volume Laterality 07/26/2018 7:02 AM 8 7:08 CDT AM CDT Narrative PN SOFT - 07/26/2018 7:20 AM CDT Performed at [place] [address] [place] [address] CLIA number [id number] Leigh Conde MD LAB_1 Performing Organization Address [facility] Phon e Number PN SOFT [address] [place] [address] [phone] (ABNORMAL) Comp Metabolic Panel (07/26/2018 7:02 AM CDT) [facility] Method Time Signature Aspartate 15 10 - 40 PN SOFT Aminotransferase U/L Lab Glucose 114 (H) 70 - 100 PN SOFT mg/dL Comment: The stated glucose range is for the fast ing state. Non-fasting glucose range is 70-180 mg/d L Bilirubin Total 0.6 0.2 - 1.2 mg/dL PN SOFT Calcium 9.2 8.4 - 10.4 mg/dL PN SOFT Sodium 142 136 - 145 mmol/L PN SOFT Potassium 3.8 3.5 - 5.2 mmol/L PN SOFT Blood Urea Nitrogen 12 9 - 26 mg/dL PN SOFT Albumin 3.4 3.4 - 5.0 g/dL PN SOFT Chloride 107 98 - 109 mmol/L PN SOFT Alk Phos 69 40 - 150 U/L PN SOFT Protein Total, Serum 7.0 6.4 - 8.3 g/dL PN S OFT Creatinine Serum 0.88 0.55 - 1.02 mg/dL PN SO FT Est GFR Am >60 >60 mL/min/1.73m2 PN SOFT Est GFR Non-Afr Am >60 >60 mL/min/1.73m2 PN SOFT Comment: Normal>60, moderate decrease 30 - 59, se rosalinda decrease 15 - 29, renal failure <15 mL/min/1.73 m2 NOTE: ??Choose the eGFR result above alissa ropriate for the race of the patient. Alanine Aminotransferase 11 9 - 55 U/L PN S OFT CO2 26 22 - 31 mmol/L PN SOFT Specimen Anatomical Collection Method Collection Time Receive d Time (Source) Location / / Volume Laterality 07/26/2018 7:02 AM 8 7:08 CDT AM CDT Narrative PN SOFT - 07/26/2018 7:27 AM CDT Performed at [facility], [facility] [place] [address] CLIA number [id number] Leigh Conde MD LAB_1 Performing Organization Address City/State/ZIP Code Phon e Number PN SOFT [address] [place] [address] CBC w/Diff (07/26/2018 7:02 AM CDT) athologist Signature White Blood Cell 6.8 3.8 - 11.0 PN SOFT Count k/cmm Red Blood Cell 4.29 3.70 - PN SOFT Count 5.20 m/cmm Hemoglobin 12.4 11.8 - PN SOFT 15.5 g/dL Hematocrit 38.4 35.0 - PN SOFT 46.0 % Mean Corpuscular 89.5 80.0 - PN SOFT Volume 100.0 fL RDW 13.3 11.0 - PN SOFT 15.0 % Platelet Count 205 140 - 450 PN SOFT k/cmm Specimen Anatomical Collection Method Collection Time Receive d Time (Source) Location / / Volume Laterality 07/26/2018 7:02 AM 8 7:08 CDT AM CDT Narrative PN SOFT - 07/26/2018 7:20 [place] [address] CLIA number [id number] Leigh Conde MD LAB_1 Performing Organization Address [facility] Phon e Number PN SOFT [address] [place] [address] Emergency Center Draw And Hold (07/26/2018 7:02 AM CDT) athologist Signature Emergency Drawn PN SOFT Center Draw And Hold Extra Lavender Drawn PN SOFT Top Drawn Extra PST Top Drawn PN SOFT Drawn Extra SST Top Drawn PN SOFT Drawn Specimen Anatomical Collection Method Collection Time Receive d Time (Source) Location / / Volume Laterality 07/26/2018 7:02 AM 8 7:07 CDT AM CDT Narrative PN SOFT - 07/26/2018 7:17 AM CDT Performed at [address] [address] CLIA number [id number] Tre Mclain MD LAB_1 Performing Organization Address [facility] Phon e Number PN SOFT [address] [place] [address] documented in this encounter Visit Diagnoses Diagnosis Loose stools Abnormal feces Triage Assessment Note - Kashif Sewell RN - 07/26/2018 6:28 AM CDT 77 y/o female to ER from home for diarrhea. PT diarrhea began 1 week ago. Took imodium for 2 days and diarrhea stopped four days ago so she stopped taking the imodium. Diarrhea began again 2 days ago, having 10 BMs per day since then. BMs are loose, watery, and uncontrollable. No nausea or vomiting. No current abdominal pain, had pain earlier this AM. Took tylenol at 0430 with improved pain. No recent fevers or illness. Hx: hysterectomy June 12, 2018. Was seen on 07/19/2018 for same type symptoms. documented in this encounter Administered Medications Inactive Administered Medications - up to 3 most recent administrations Medication Order MAR Action Action Date Dose Rate Site 0.9% sodium chloride bolus 1,000 Started 07/26/2018 7:50 AM CDT 1, 000 mL mL 1,000 mL, Intravenous, Administer over 0.6 Hours, ONCE, On Sun07/26/18 at 0715, For 1 dose documented in this encounter Active and Recently Administered Medications Times are shown in CDT. Scheduled Medication Order 07/24/2018 07/25/2018 07/26/2018 0.9% sodium chloride bolus 1,000 mL (COMPLETED) 0750 (Started - Provider: Zak White RN)0826 (Infused - Provider: Caridad Nina RN) 1,000 mL, Intravenous, Administer over 0 .6 Hours, ONCE, Sun07/26/18 at 0715, For 1 dose documented in this encounter Care Teams Yield Improvement Engineer Relationship Specialty Start Date End Date Veronica Heredia DO PCP - General Family Practice 03/22/17 [address] [facility] [place] [address] documented as of this encounter
--- OUTSIDE RECORDS SUMMARY | 2022-08-15 14:53 | XMS_ITS | Encounter Summary ---
:1940 Author Organization [facility] Address [address] [place] [address] Care Team Providers Name Role Phone Veronica Heredia DO Primary Care Provider Reason for Visit Auth/Cert Specialty Diagnoses / Procedures Referred By Contact Refer red To Contact Diagnoses Endometrial cancer (HRC) Referral ID Status Reason Start Date Expiration Date Visits Requ ested Visits Authorized [id number] 1 1 Encounter Details Date Type Department Care Team Description 06/12/2018 - Hospital Encounter [facility] Tre Ding, 06/13/2018 Room [address] [facility] [address] [place] [address] [place], [place] [phone] (Wo rk) Social History Tobacco Use [...] Sign Reading Time Taken Comments Blood Pressure 142/83 06/13/2018 6:00 AM CDT Pulse 82 06/13/2018 6:00 AM CDT Temperature 36.5 ??C (97.7 ??F) 06/13/2018 2:00 AM CDT Respiratory Rate 16 06/13/2018 6:00 AM CDT Oxygen Saturation 92% 06/13/2018 6:00 AM CDT Inhaled Oxygen Concentration - - Weight 88.9 kg (196 lb) 06/12/2018 7:59 AM CDT Height 160.7 cm (5' 3.25) 06/12/2018 7:59 AM CDT Body Mass Index 34.45 06/12/2018 7:59 AM CDT documented in this encounter Medications at Time of Discharge Medication Sig Dispensed Refills Start Date End Date cholecalciferol (VITAMIN Take 1,000 Units by 0 D3) 1000 units tablet mouth daily. aspirin EC 81 MG enteric Take 1 tablet by 13 07/1007/29/2018 coated tablet mouth daily (every 24 hours). ibuprofen (MOTRIN) 200 Take 3 Tablets by 100 Tablet 0 201707/19/2018 MG tablet mouth every 6 hours. losartan (COZAAR) 100 MG TAKE 1 TAB BY MOUTH 90 Tab 3 02/05/2019 tabletIndications: DAILY. Essential hypertension (HRC) metoprolol succinate Take 1 Tab by mouth 90 Tab 3 201606/15/2018 (TOPROL XL) 25 MG 24 daily. Take with hour release Toprol XL 50 mg tab tabletIndications: to equal 75 mg. Essential hypertension (HRC) metoprolol succinate TAKE 1 TAB BY MOUTH 90 Tab 3 201702/05/2019 (TOPROL XL) 50 MG 24 DAILY. DISCONTINUE hour release tablet ATENOLOL. oxyCODONE (ROXICODONE) 5 Take 1 Tablet by 20 Tablet 0 06/1206/27/2018 MG immediate release mouth every 4 hours tablet as needed for Pain. senna (SENNA LAXATIVE) Take 1 Tablet by 100 Tablet 0 018 06/27/2018 8.6 MG tablet mouth daily. simvastatin (ZOCOR) 20 TAKE ONE TABLET BY 90 Tablet 3 05/2702/05/2019 MG tabletIndications: MOUTH DAILY Hyperlipidemia, unspecified hyperlipidemia type (HRC) documented as of this encounter Progress Notes Kalani López RN - 06/13/2018 10:[address] [facility] T Kaleigh Jaquez MD - 06/13/2018 8:00 AM CDT Entered in error T Kaleigh Jaquez MD - 06/13/2018 6:00 AM CDT [facility] STAFF CYTOTECHNOLOGIST ONC PROGRESS NOTE Post Operative Day #1 Subjective Patient is doing well today.waiting for breakfast. Wants to go home. She did not get much sleep lastnight. Pain controlled, has taken oxycodone. Tolerating a regular diet without nausea or vomiting. Voiding without difficulty. Has not passed gas gas. Ambulating without dizziness. Objective Filed Vitals: 06/12/18 1630 06/12/18 1645 06/12/18 1721 06/12/18 1730 BP: (!) 120/110 (!) 154/82 (!) 156/97 (!) 156/85 Pulse: 94 95 93 92 Resp: 16 16 16 Temp: TempSrc: SpO2: 92% 92% (!) 91% 94% Weight: Height: Gen: Resting in bed, NAD Lungs: no increased work of breathing Heart: RRR Abdomen: Soft, non-distended, non tender. Incision: port sites clean, dry, and intact, without erythema or drainage Extremities: Nontender, no edema, no cords Urine Output: multiple times unmeasured Intake/Output Summary (Last 24 hours) at 06/12/18 2243 Last data filed at 06/12/18 1645 Gross per 24 hour Intake 2000 ml Output 350 ml Net 1650 ml Hospital Encounter on 06/12/18 (from the past 24 hour(s)) Bedside Glucose Monitor Result Value Ref Range Bedside Blood Glucose Test 104 mg/dL Cytology Result Value Ref Range Cytology Spec Rec'd Narrative Performed at [facility], [address] [place] [id number] CLIA number [id number] Anatomic Pathology, [facility] Result Value Ref Range [facility] Pathology Rcv'd in Histo Narrative Performed at [facility], [address] [place] [address] CLIA number [id number] Heme: Hgb 13 >EBL 50 Assessment/Plan Michele Angulo is a 77 y.o. old female POD#1 s/p TLH-BSO, cysto for grade II endometrial adenocarcinoma,admitted to extended recovery overnight. She is recovering well. Meeting all post op goals. Did havesome hypertension overnight so home meds restarted. Okay for discharge this morning Follow up scheduled with Dr. Ding on 06/27. Kaleigh Jaquez MD 06/12/2018 ER Hernandez Chandler RN - 06/13/2018 3:11 AM CDT Pt B/P 161/98,MD notified and verbal order of 100mg Lorsatan received. Kaleigh Jaquez MD - 06/12/2018 6:59 PM CDT For patient concerns please page: 6 am to 6 pm: page Kaleigh Jaquez [phone] Sunday to Sunday 6 pm -6:00 am: ??Please page the oncology cross cover at [phone] (note: pleaseinclude full callback number as this resident is covering from an outside hospital) Thank you Darci Francois RN - 06/12/2018 4:50 PM CDT Pt transferred to extended stay, phase 111, report off to Charlee CAI. Darci Francois RN - 06/12/2018 3:[address] Leonid Farris, and informed that pt has no one to stay with her overnight at home and ptprefer to stay in the hospital, pain rates 5/10, denies N/V. DR Jaquez is keeping pt extended stay,MD to place orders. Yazmin Rubin RN - 06/12/2018 2:45 PM CDT Did not realize that patient lives alone; She feels very unsure of going home to be by herself overnight. Checking on status of keeping her overnight. Maricruz Mancuso RN - 06/12/2018 8:05 AM CDT IS 1650 actual & goal documented in this encounter Procedure Notes Kaleigh Jaquez MD - 06/12/2018 11:30 AM CDT [facility] Brief Operative Progress Note Surgery Date: 06/12/2018 Surgeon(s) and Role: * Abida Oneill MD - Fellow * Tre Ding MD - Primary Pre-op Diagnosis: * Endometrial cancer (HRC) [C54.1] Post-op Diagnosis: * Endometrial cancer (HRC) [C54.1] Procedure(s) (LRB): Laparascopic total hysterectomy, bilateral salpingoopherectomy, cystoscopy (N/A) EBL: 50 ML UOP: 300ml Specimens: ID Type Source Tests Collected by Time Destination A : uterus, cervix, tubes, and ovaries Tissue Abdomen Tre Ding MD 06/12/2018 1027 Pathology 1 : Pelvic Washings Fluid Pelvis Tre Ding MD 06/12/2018 0959 Cytology Complications / Findings: No injury on abdominal entry. Normal upper abdominal survey.. Small uterus, normal appearing tubes and ovaries bilaterally. No evidence of metastatic disease. Bilateral ureteral jets noted on cystoscopy. Kaleigh Jaquez MD ER Kaleigh Jaquez MD - 06/12/2018 8:10 AM CDT [facility] Gynecologic Oncology Operative Report Michele Angulo DATE OF SURGERY: 06/12/2018 SURGEON: Tre Ding MD ASSISTANTS: Abida Oneill MD, fellow; and Kaleigh Jaquez MD, PGY- 3. 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 with a diagnosis of grade II endometrial adenocarcinoma on endometrial biopsy. Surgical management with the above listed procedure was recommended. The risks, benefits, and alternatives were discussed with the patient and she agreed to proceed. Informed consent wassigned. FINDINGS: No injury on abdominal entry. Normal upper abdominal survey. Small uterus, normal appearing tubes and ovaries bilaterally. Both ureters easily identified. No evidence of metastatic disease. Bilateral ureteral jets noted on cystoscopy. SPECIMENS: Uterus, cervix, bilateral ovaries and fallopian tubes COMPLICATIONS: None apparent CONDITION: Stable to PACU TECHNIQUE: Following informed consent, the patient was taken to the operating room where she underwent general anesthesia. She was placed in dorsal lithotomy position and exam under anesthesia was performed with the above listed findings. She was prepped and draped in normal sterile fashion. A Jones catheter wasplaced in the bladder using sterile technique. The umbilicus was everted, and a 5 mm stab incision was made. The Veress needle was placed, and intraperitoneal placement was suggested by the water drop test and an opening pressure of less than 5 mmHg. The abdomen was then insufflated to a pressure of 15 mmHg. The Veress needle was removed and a 5 mm trocar was placed. The laparoscope was placed, and survey of the abdomen revealed the findings noted above. No trauma from entry was noted. Abdominal survey was performed with the above findings. Attention was then turned to the left lower quadrant. At a point 2 cm superomedial to the ASIS, a 5 mm incision was made, and a 5 mm trocar was placed under direct visualization. Attention was then turned to the right lower quadrant. Similarly, at a point 2 cm superomedial to the ASIS, a 12 mm incision wasmade, and a 12 mm trocar was placed under direct visualization. The patient was placed in steep Trendelenburg position and pelvic washings were obtained. Attention was turned to the vagina. The cervix was visualized and serially dilated without difficulty. A MONIQUE ring and TASHIA uterine manipulator were placed. At this point, the right ureter was identified transperitoneally. The right round ligament was incised and the retroperitoneum was opened. A defect was created inferior to the IP ligament, which was then cauterized and transected using the Gyrus. This was repeated on the left side. The right uterine artery was then skeletonized and transected with the Gyrus. The left uterine artery was similarly ligated. The bladder flap was then created by dissecting the vesicouterine peritoneum. The uterine arterywas from the cervix on the right side with serial bites using the Gyrus on the right and then left side.The uterus was then amputated at the level of the vaginal cuff along the MONIQUE ring, and the specimen was removed through the vagina. The vaginal cuff was then closed using 2-0 Vicryl suturein a series of interrupted [id number]-rldbcc using the EndoStitch device. The jones cather was then removed and the cystoscope was placed in the bladder. Cystoscopy revealed an intact bladder without apparent injury. Brisk efflux from the bilateral ureteral orifices was seen. Attention was returned to the abdomen. The 12 mm fascial incision was closed with an 0 Vicryl sutureusing the Luis Carlos-Dakota device. All skin incisions were closed using 4-0 Monocryl and covered withsteri-strips and a sterile dressing. All sponge, needle, and instrument counts were reported as correct x2. The patient tolerated the procedure well and was transferred to PACU in stable condition. Dr. Ding was present and participateddirectly in the entire procedure. Kaleigh Jaquez MD SUPERVISOR REWORK PGY-3 Associated attestation - Tre Ding MD - 07/18/2018 8:56 AM CDT I was present and scrubbed throughout this case. Tre Ding MD documented in this encounter Plan of Treatment Scheduled Orders Name Type Priority Associated Diagnoses Order S chedule POCT Glucose: Point of Care Routine Once today st arting now for 1 Occurrences s tarting 06/12/2018 unti l 06/12/2018 POCT Glucose: Point of Care Routine Once today st arting now for 1 Occurrences s tarting 06/12/2018 unti l 06/12/2018 documented as of this encounter Procedures Procedure Name Priority Date/Time Associated Diagnosis Comme nts ANATOMIC PATHOLOGY, Routine 06/12/2018 10:50 Resu lts for this YAZIDISM OR AM CDT procedure are i n the results section. CYTOLOGY Routine 06/12/2018 10:36 Results for this AM CDT procedure are i n the results section. LAPAROSCOPIC ASSISTED 06/12/2018 8:40 AM Endometrial c ancer TOTAL HYSTERECTOMY, CDT (HRC) BILATERAL SALPINGO-OOPHORECTOMY , LYMPH NODE DISSECTION BEDSIDE GLUCOSE Routine 06/12/2018 7:44 AM Result s for this MONITOR POCT CDT procedure are i n the results section. SURGICAL PATH, PARK Routine 06/12/2018 7:00 AM Re sults for this NICOLLET CDT procedure are i n the results section. NGYN CYTO FINAL Routine 06/12/2018 7:00 AM Result s for this REPORT CDT procedure are i n the results section. documented in this encounter Results Anatomic Pathology, [facility] (06/12/2018 10:50 AM CDT) Analysis Performed At Patho logist Time Signature [facility] [place] Rcv'd in PN SOFT Pathology Histo Specimen Anatomical Collection Method Collection Time Receive d Time (Source) Location / / Volume Laterality 06/12/2018 10:50 06/12/2018 AM CDT 10:52 AM CDT Narrative PN SOFT - 06/12/2018 10:52 AM CDT Performed at [facility], [address] [place] [address] CLIA number [id number] Tre Ding MD LAB_1 Performing Organization Address City/State/ZIP Code Phon e Number PN SOFT [address] [place] [address] Cytology (06/12/2018 10:36 AM CDT) P athologist Signature Cytology Spec Rec'd PN SOFT Specimen Anatomical Collection Method Collection Time Receive d Time (Source) Location / / Volume Laterality 06/12/2018 10:36 06/12/2018 AM CDT 12:30 PM CDT Narrative PN SOFT - 06/12/2018 12:30 PM CDT Performed at [facility], [address] [facility] [place] [address] CLIA number [id number] Tre Ding MD LAB_1 Performing Organization Address [facility] Phon e Number PN SOFT [address] [place] [address] Bedside Glucose Monitor (06/12/2018 7:44 AM CDT) athologist Signature Bedside Blood 104 mg/dL PN SOFT Glucose Test Comment: Performed at [address] [place] [address] Specimen Anatomical Collection Method Collection Time Receive d Time (Source) Location / / Volume Laterality 06/12/2018 7:44 AM 8 7:50 CDT AM CDT Tre Ding MD LAB_1 Performing Organization Address [facility] Phon e Number PN SOFT [address] [place] [address] Cytology Report (06/12/2018 7:00 AM CDT) [facility] gist Method Time Signature Path: FINAL CYTOLOGY REPORT PN SOFT Pathology #: [id number] ?Date Obtain ed: 06/12/2018 ? Date Received: 06/12/2018 DIAGNOSIS: Pelvic washing, cytology: ??- Negative for malignant cells. ? Benito TORRES ? (electronic signatur e) ? 06/13/2018 ??08:5 1 CLINICAL NOTES: Endometrial cancer. GROSS DESCRIPTION: The specimen designated pelvic wash consists of 38 ml cloud y white fluid. One monolayer slide, one Diff Quik stained slide, an d one cell block are prepared and interpreted from this specimen and a re submitted for cytologic study. MICROSCOPIC DESCRIPTION: The microscopic examination has been performed. Performed at [facility], [address] [place] [address] Specimen Anatomical Collection Method Collection Time Receive d Time (Source) Location / / Volume Laterality Pelvis: 06/12/2018 7:00 AM 8 7:00 CDT AM CDT Tre Ding MD LAB_1 Performing Organization Address City/State/ZIP Code Phon e Number PN SOFT [address] [place] [address] [phone] Pathology Report (06/12/2018 7:00 AM CDT) [facility] gist Method Time Signature Path: FINAL SURGICAL PATHOLOGY REPORT PN SOFT Pathology #: [id number] ? Date Obtained: 06/12/2018 ?Date Received: 06/12/2018 DIAGNOSIS: Specimen ? Procedure: ??Total abdominal hysterectomy and bila teral ? salpingo-oophorectomy Tumor ? 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 Histologic Grade: ??FIGO grade 2 ? Tumor Extent ? Myometrial Invasion: ??Present ? Depth of Invasion: ??3 Millimeters (mm) ?Myometrial Thickness: ??15 Millimeters (mm ) ?Percentage of Myometrial Invasion: ??20% ? Uterine Serosa Involvement: ??Not identified ? Cervical Stromal Involvement: ??Not identified ? Other Tissue / Organ Involvement: ??Not identif ied ? Peritoneal Ascitic Fluid: ??Negative for malign christopher (normal / ? benign) ? Accessory Findings ? Lymphovascular Invasion: ??Not identified Lymph Nodes ? Regional Lymph Nodes: ??No lymph nodes submitted o r found Pathologic Stage Classification (pTNM, AJCC 8th Edition) ? Primary Tumor (pT): ??pT1a ? Regional Lymph Nodes (pN) ? Category (pN): ??pNX FIGO Stage ? FIGO Stage: ??IA ? 2016 AJCC 8th Edition CAP Annual Release ? Benito TORRES ? (electronic signatur e) ? 06/14/2018 ??15:5 2 CLINICAL NOTES: Endometrial cancer GROSS DESCRIPTION: A. ??The specimen is received fresh for frozen section labe led uterus, ?? cervix, tubes and ovaries and consists of a hysterectom y specimen ?? with bilaterally attached fallopian tubes and ovaries wi th a total ?? weight of 80 g. ??The uterus measures 4.4 x 4 x 3.8 cm a nd has a ?? smooth, schofield-pink serosal surface. ??The ectocervix is ta n-pink, ?? focally hyperemic and glistening with diameter of 2.9 cm . ??The ?? uterus is inked blue and opened to reveal a firm, schofield-pi nk polypoid ?? mass in the uterine fundus measuring 2 x 1.7 x 0.8 cm. ? ?The tumor ?? does not involve the lower uterine segment or cervix. ?? The tumor ?? grossly appears superficial. ??A financial services representative section is submitted ?? for frozen section. ??The remainder of the endometrium i s schofield and ?? hemorrhagic with an average thickness of 0.1 cm. ??The m yometrium is ?? schofield-pink with a thickened, trabecular appearance and an average ?? thickness of 1.6 cm. The right adnexa consists of a 1.5 x 1 x 1 cm schofield-pink, con voluted ?? ovary with an attached fallopian tube measuring 6 cm in length by ?? 0.5 cm in diameter. ??Cross-sections reveal a schofield-pink, stellate ?? lumen. The left adnexa consists of a 1.2 x 0.8 x 0.8 cm schofield-pink, convoluted ?? ovary with an attached fallopian tube measuring 5 cm in length by ?? 0.5 cm in diameter. ??Cross-sections through both the tu be and ovary ?? are grossly unremarkable. Summary of sections: A1 frozen section, anterior endomyomet rium with ?? tumor; A2-5 anterior endomyometrium with tumor; A6-8 pos terior ?? endomyometrium with tumor; A9 anterior lower uterine seg ment; A10 ?? anterior cervix; A11 posterior lower uterine segment; A1 2 posterior ?? cervix; A13 right fallopian tube and ovary; A14 left fal lopian tube ?? and ovary. ? WEYAL IOC/FROZEN: Endometrioid adenocarcinoma, FIGO 2-3, 2.0 cm in greatest d imension, no myometrial invasion. (ANUPAMA) ? [facility] MICROSCOPIC DESCRIPTION: The microscopic examination has been performed. Performed at [facility], [address] [place] [address] Specimen Anatomical Collection Method Collection Time Receive d Time (Source) Location / / Volume Laterality UTERINE STRUCTURE 06/12/2018 7:00 AM 06/2018 7:00 / Unknown CDT AM CDT Tre Ding MD LAB_1 Performing Organization Address City/State/ZIP Code [facility] e Number PN SOFT [address] [place] [address] documented in this encounter Visit Diagnoses Diagnosis Endometrial cancer (HRC) - Primary Malignant neoplasm of corpus uteri, exce pt isthmus documented in this encounter Administered Medications Inactive Administered Medications - up to 3 most recent administrations Medication Order MAR Action Action Date Dose Rate Site bupivacaine (MARCAINE) 0.5 % Given 06/12/2018 11:03 AM CDT 20 mL injection ONCE PRN, Starting on Sun06/12/18 at 1103, Intra-op docusate sodium (COLACE) capsule 100 mg Given 06/13/2018 9:56 AM CDT 100 mg 100 mg, Oral, BID, First dose on Sun06/12/18 at 2000, Until Discontinued, as stool-softener, Post-op gentamicin 340 mg in sodium Started 06/12/2018 8:00 AM CDT 340 mg Right Hand chloride 0.9 % 100 mL IVPB 340 mg (rounded from 338.5 mg = 5 mg/kg ? 67.7 kg Adjusted weight), Intravenous, Administer over 60 Minutes, ONCE, On Sun06/12/18 at 1000, For 1 dose, Give within 60 minutes prior to incision; No intraoperative re-dosing needed. Pharmacy to adjust dose to 3mg/kg for impaired renal function., Pre-op ibuprofen (MOTRIN) tablet 600 mg Given 06/13/2018 5:45 AM CDT 600 mg 600 mg, Oral, Q6H (NON-STND), First dose on Sun06/12/18 at 1745, Until Discontinued, DO NOT GIVE while patient is receiving ketorolac (TORADOL). First dose to begin 4 hours after last dose of ketorolac (TORADOL)., Post-op lactated ringers infusion Started 06/12/2018 10:17 AM CDT 25 mL/hr, Intravenous, CONTINUOUS, Starting on Sun06/12/18 at 0800, Administer on all preop surgery patients, ages 12 and older, unless specified differently in the Protocol for Preop Initiation of IV fluids Order Set., Pre-op Started 06/12/2018 8:00 AM CDT 25 mL/hr 25 mL/hr Right Hand losartan (COZAAR) tablet TABS 100 mg Given 06/13/2018 3:15 AM CDT 100 mg 100 mg, Oral, DAILY, First dose on Sun06/13/18 at 0315, Until Discontinued metoprolol succinate (TopROL XL) extended Given 06/13/2018 5:30 AM CDT 75 mg release tablet 75 mg 75 mg, Oral, DAILY, First dose (after last modification) on Sun06/13/18 at 0530, Until Discontinued, Tablet should be swallowed whole, Post-op ondansetron (ZOFRAN) injection 4 mg 4 mg, Intravenous, ONCE PRN, Nausea, Starting on Sun at 0734, Until Sun06/13/18 at 1228, For 1 dose, Give in pre-op holding if needed., Pre-op oxyCODONE (ROXICODONE) immediate release tablet Given 06/12/2018 4:00 PM CDT 5 mg 5-10 mg 5-10 mg, Oral, Q4H PRN, Other, Moderate Pain (pain score 5-7), Starting on Sun06/12/18 at 1426, Until Sun06/13/18 at 1228 phenazopyridine (PYRIDIUM) tablet 200 mg Given 06/12/2018 8:00 AM CDT 200 mg 200 mg, Oral, ONCE, On Sun06/12/18 at 0800, For 1 dose, Administer within one hour of transfer to OR with a small sip of water., Pre-op documented in this encounter Active and Recently Administered Medications Times are shown in CDT. Scheduled Medication Order 06/11/2018 06/12/2018 06/13/2018 clindamycin in dextrose 5% (CLEOCIN) IVPB 900 mg (COMPLETED) 15 (Given - Provider: Anuja Lopez APRN, DIRECTOR OF CONTENT MARKETING)1000 (Due) 900 mg, Intravenous, Administer over 30 Minutes, ONCE, Sun06/12/18 at 1000, For 1 dose, Give within 60 minutes prior to incision; then re-dose 900 mg IV every 6 hours until incision closed., Pre-op docusate sodium (COLACE) capsule 100 mg 1999 (Not Given - Provider: Charlee Villela RN - Reason: Patient/family refused) 955 (Given - Provider: Fiona Lyn RN) 100 mg, Oral, BID, First dose on Sun06/12/18 at 2000, a s stool-softener, Post-op gentamicin 340 mg in sodium chloride 0.9 % 100 mL IVPB (COMP LETED) 0800 (Started - Provider: Maricruz Mancuso RN)0900 (Due: Infused - Provider: Maricruz Mancuso RN)1000 (Due) 340 mg (rounded from 338.5 mg = 5 mg/kg ? 67.7 kg Adjusted weight), Intravenous, Administer over 60 Minutes, ONCE, Sun06/12/18 at 1000, For 1 dose, Give within 60 minutes prior to incision; No intraop er ative re-dosing needed. Pharmacy to adju st dose to 3mg/kg for impaired renal function., Pre-op ibuprofen (MOTRIN) tablet 600 mg 1745 (N ot Given - Provider: Charlee Villela RN - Reason: Patient/family refused)2345 (Not Given - Provider: Charlee Villela RN - Reason: Patient/family refused) 0545 (Given - Provider: Hernandez meyer RN) 600 mg, Oral, Q6H (NON-STND), First dose on Sun06/12/18 at 1745, DO NOT GIVE while patient is receiving ketorolac (TORADOL). First dose to begin 4 hours after last dose of ketorolac (TORADOL)., Post-op losartan (COZAAR) tablet TABS 100 mg 0315 (Given - Provider: Hernandez Chandler RN) 100 mg, Oral, DAILY, First dose on Sun06/13/18 at 0315 magnesium hydroxide (MILK OF MAGNESIA) suspension 15 mL 2000 (Not Given - Provider: Charlee Villela RN - Reason: Patient/family refused) 0800 (Not Given - Provider: Fiona Lyn RN - Reason: Other (Enter Reason in Comment Area) - Comment: patient refused, wanted to take at home) 15 mL, Oral, BID, First dose on Sun06/12/18 at 2000, Post-op metoprolol succinate (TopROL XL) extended release tablet 75 mg 0530 (Given - Provider: Hernandez Chandler RN) 75 mg, Oral, DAILY, First dose on 07/23 at 0530, Tablet should be swallowed whole, Post-op phenazopyridine (PYRIDIUM) tablet 200 mg (COMPLETED) 0800 (Given - Provider: Maricruz Mancuso RN) 200 mg, Oral, ONCE, Sun06/12/18 at 0800, For 1 dose, Administer within one hour of transfer to OR with a small sip of water., Pre-op Continuous Medication Order 06/11/2018 06/12/2018 06/13/2018 lactated ringers infusion 0800 (Started - Provider: Maricruz Mancuso RN)1017 (Started - Provider: Anuja Lopez APRN, IJEOMA)1132 (Anesthesia Fluid - Provider: Anuja Lopez APRN, IJEOMA) 25 mL/hr, Intravenous, at 25 mL/hr, CONT INUOUS, Starting Sun06/12/18 at 0800, Administer on all preop surgery patients, ages 12 and older, unless specified differently in the Protocol for Preop Initiation of IV fluids Order Set., Pre-op PRN Medication Order 06/11/2018 06/12/2018 06/13/2018 acetaminophen (TYLENOL) tablet 500-1,000 mg 500-1,000 mg, Oral, Q6H PRN, Other, Mild Pain (pain score 1-4), Starting Sun06/12/18 at 1726, May give acetaminophen (TYLENOL) 500mg (1 tablet) with 1 tablet HYDROcodone-acetaminophen (NORCO) 5-325mg. Gi ve for mild pain or if patient prefers a cetaminophen over other options for pain (all pain scores). Maximum dose of acetaminophen is 4000 mg from all sources in 24 hours., Post-op bupivacaine (MARCAINE) 0.5 % injection 1 103 (Given - Provider: Tre Ding MD - Comment: Given by resident) ONCE PRN, Starting Sun06/12/18 at 1103, Intra-op fentaNYL (SUBLIMAZE) injection 25-100 mcg 25-100 mcg, Intravenous, [id number], Pain, Sedation, Procedure, Severe Pain (pain score 8-10), Starting Sun06/12/18 at 0823, Notify Anesthesiologist if total cumulative dose in excess of 250 mcg., Pre-op fentaNYL (SUBLIMAZE) injection 25-50 mcg 25-50 mcg, Intravenous, [id number], Other, Moderate to Severe Pain (pain score 5 and above) in the immediate postop period when faster on-set, short acting agent is desired., Starting Sun06/12/18 at 0823, Administer every 5 minutes as needed, to a maximum cumulative dose of 250 mcg. For patients with a regional, spinal, or local anesthetic, may give for anticipated pain as the anesthetic wears off., PACU/Recovery HYDROmorphone injectable 0.1-0.2 mg 0.1-0.2 mg, Intravenous, Q15MIN PRN, Oth er, Moderate Pain (pain score 5-7), Severe Pain (pain score 8-10) if unable to take oral medications., Starting Sun06/12/18 at 1726, HOLD if patient is on HOT DOG VENDOR. Not to exceed 1.5 mg in 2 hours., Post-op HYDROmorphone injectable 0.2-0.4 mg 0.2-0.4 mg, Intravenous, Q10MIN PRN, Oth er, : Moderate to Severe Pain (pain score 5 and above) in the immediate postop period when longer acting agent is desired., Starting Sun06/12/18 at 0823, Maximum c umulative dose is 2 mg. For patients wit h a regional, spinal, or local anesthetic, may give for anticipated pain as the anesthetic wears off., PACU/Recovery meperidine (DEMEROL) injection 12.5 mg 12.5 mg, Intravenous, [id number], Shiverin g, Starting Sun06/12/18 at 0823, For 2 doses, Maximum cumulative dose is 25 mg. Do not give to patients receiving MAO inhibitors (e.g. phenelzine (NARDIL), tranylc ypromine (PARNATE), selegiline (ELDEPRYL))., PACU/Recovery midazolam (VERSED) injection 1-2 mg 1-2 mg, Intravenous, [id number], Sedation, Anxiety, Procedure, Starting Sun06/12/18 at 0823, MAX Dose 2mg, Pre-op morphine injectable 1-2 mg 1-2 mg, Intravenous, [id number], Other, Mo derate to Severe Pain (pain score 5 and above) Moderate to Severe Pain (pain score 5 and above) in the immediate postop period when longer acting agent is desired and HYDROmorphone is not tolerated., St arting Sun06/12/18 at 0823, Maximum cumulative dose is 12 mg. For patients with a regional, spinal, or local anesthetic, may give for anticipated pain as the anesthetic wears off., PACU/Recovery ondansetron (ZOFRAN) injection 4 mg 4 mg, Intravenous, ONCE PRN, Nausea, Sta rting Sun06/12/18 at 0734, For 1 dose, Give in pre-op holding if needed., Pre-op ondansetron (ZOFRAN) injection 4 mg 4 mg, Intravenous, Q4H PRN, Nausea, Vomi ting, Starting Sun06/12/18 at 0823, If multiple medications are ordered for nausea or vomiting - administer in the following priority based on medications ordered, effectiveness and availability: ondanse anuj (ZOFRAN) > prochlorPERAZINE (COMPAZINE) > diphenhydrAMINE (BENADRYL) > hydrOXYzine HCl (VISTARIL)> ePHEDrine > scopolamine (TRANSDERM-SCOP)., PACU/Recovery oxyCODONE (ROXICODONE) immediate release tablet 5-10 mg 1600 (Given - Provider: Darci Francois RN - Comment: postop.) 5-10 mg, Oral, Q4H PRN, Other, Moderate Pain (pain score 5-7), Starting Sun06/12/18 at 1426 oxyCODONE (ROXICODONE) immediate release tablet 5-10 mg 5-10 mg, Oral, Q4H PRN, Other, Severe Pa in (pain score 8-10) if patient able to take oral medications, Starting Sun06/12/18 at 1726, Do NOT give both oral and IV opioids. Hold if on HOT DOG VENDOR., Post-op simethicone (MYLICON) chewable tablet 80 mg 80 mg, Oral, QID PRN, Flatulence, Starting Sun06/12/18 at 1726, P ost-op documented in this encounter Care Teams Canine Service Instructor Trainer Relationship Specialty Start Date End Date Veronica Heredia DO PCP - General Family Practice 03/22/17 [address] [facility] [address] [place], [place] [id number] documented as of this encounter
--- OUTSIDE RECORDS SUMMARY | 2022-08-15 14:53 | XMS_ITS | Encounter Summary ---
:1940 Author Organization [facility] Address [address] [place] [address] Care Team Providers Name Role Phone Veronica Heredia DO Primary Care Provider Reason for Visit Reason Comments Medicare Encounter Details Date Type Department Care Team Description 02/04/2019 Telephone [facility] Medic ine Ver[place] Heredia [place] Medicare [address] [facility] [address] [place] [address] [place] [address] [phone] Social History Tobacco Use Types Packs/Day Years [...] as of this encounter Nursing Notes Veronica Plunkett N - 02/04/2019 2:43 PM CDT MEDICARE WELLNESS - 02/05/2019 Appointment Status: Scheduled Veronica Heredia DO Department: [facility] MEDICINE Time: 8:30 AM PSC MWST FOLLOW-UP Date of Last Physical: 04/19/17 Date of Last Welcome to Medicare/Annual Wellness: Not in EPIC Insurance Verification: Verified by: Website Insurance Coverage: Regular physical ok? Y Return Calls to Patients: -No call was needed. Mailers: -AWQ not mailed out. documented in this encounter Plan of Treatment Not on filedocumented as of this encounter Visit Diagnoses Not on filedocumented in this encounter Care Teams Facilities Mechanical Design Engineer Relationship Specialty Start Date End Date Veronica Heredia, DO PCP - General Family Practice 03/22/17 [address] [facility] [place] [id number] documented as of this encounter
--- OUTSIDE RECORDS SUMMARY | 2022-08-15 14:53 | XMS_ITS | Encounter Summary ---
:1940 Author Organization [facility] Address [address], [place] [address] Care Team Providers Name Role Phone Veronica Heredia DO Primary Care Provider Reason for Visit Reason Comments PRE-OP EXAM Encounter Details Date Type Department Care Team Description 05/21/2018 Pre-Op Visit Sawyer Hernandez Veronica Heredia, Preoperat lynne examination (Primary Dx); Medicine DO Essential hypertension [id number] [place] [address] [place] [phone] [id number] Social History Tobacco Use Types Packs/Day Years [...] Sign Reading Time Taken Comments Blood Pressure 136/84 05/21/2018 1:11 PM CDT Pulse 68 05/21/2018 1:11 PM CDT Temperature - - Respiratory Rate - - Oxygen Saturation - - Inhaled Oxygen Concentration - - Weight 88.9 kg (196 lb) 05/21/2018 1:11 PM CDT Height 160.7 cm (5' 3.25) 05/21/2018 1:11 PM CDT Body Mass Index 34.45 05/21/2018 1:11 PM CDT documented in this encounter Patient Instructions Patient InstructionsVeronica Heredia DO - 05/21/2018 1:32 PM CDT Images from the original note were not included. Hold anti-inflammatory such as Aleve, ibuprofen and aspirin starting one week prior to surgery. Hold multivitamins and herbal supplements starting one week prior to surgery. Please call the surgeon to reschedule if become ill prior to surgery. Laparoscopic Hysterectomy: Before Your Surgery What is a laparoscopic hysterectomy? A hysterectomy is surgery to take out the uterus. In some cases, the ovaries and fallopian tubes also are taken out at the same time. The doctor makes one or more small cuts in the belly. These cuts are called incisions. They let the doctor insert tools to do the surgery. One of these tools is a tube with a light on it. It's called alaparoscope, or scope. The scope and the other tools allow the doctor to free the uterus. The doctorthen removes the uterus through the small cuts. In a total hysterectomy, the doctor takes out the uterus and the cervix. In a supracervical hysterectomy, only the uterus is taken out. Most women go home in 1 to 2 days. You may need about 4 to 6 weeks to fully recover. After the surgery, you will not have periods. You will not be able to get . If there is a chance that you will want to have a baby, talk to your doctor about other treatment options. Your doctor may advise you to take hormone pills if your ovaries are removed. Your doctor will talk to you about the risks and benefits of hormones. He or she will also tell you how long to take them. This surgery probably won't lower your interest in sex. In fact, some women enjoy sex more. This maybe because they no longer have to worry about control or heavy bleeding. Follow-up care is a figueroa part of your treatment and safety. Be sure to make and go to all appointments, and call your doctor if you are having problems. It's also a good idea to know your test results and keep a list of the medicines you take. What happens before surgery? ??Surgery can be stressful. This information will help you understand what you can expect. And it will help you safely prepare for surgery. ??Preparing for surgery ? Understand exactly what surgery is planned, along with the risks, benefits, and other options. ?? Tell your doctors ALL the medicines, vitamins, supplements, and herbal remedies you take. Some of these can increase the risk of bleeding or interact with anesthesia. ? If you take blood thinners, such as warfarin (Coumadin), clopidogrel (Plavix), or aspirin, be sure to talk to your doctor. He or she will tell you if you should stop taking these medicines beforeyour surgery. Make sure that you understand exactly what your doctor wants you to do. ? Your doctor will tell you which medicines to take or stop before your surgery. You may need tostop taking certain medicines a week or more before surgery. So talk to your doctor as soon as you can. ? If you have an advance directive, let your doctor know. It may include a living will and a durable power of state's attorney for health care. Bring a copy to the hospital. If you don't have one, you may want to prepare one. It lets your doctor and loved ones know your health care wishes. Doctors advise that everyone prepare these papers before any type of surgery or procedure. What happens on the day of surgery? ?? Follow the instructions exactly about when to stop eating and drinking. If you don't, your surgery may be canceled. If your doctor told you to take your medicines on the day of surgery, take them with only a sip of water. ? Take a bath or shower before you come in for your surgery. Do not apply lotions, perfumes, deodorants, or nail israeli. ? Do not shave the surgical site yourself. ? Take off all jewelry and piercings. And take out contact lenses, if you wear them. ??At the hospital or surgery center ?? Bring a picture ID. ? The area for surgery is often marked to make sure there are no errors. ? You will be kept comfortable and safe by your anesthesia provider. You will be asleep during the surgery. ? The surgery will take about 2 to 4 hours. Going home ?? Be sure you have someone to drive you home. Anesthesia and pain medicine make it unsafe for you to drive. ? You will be given more specific instructions about recovering from your surgery. They will cover things like diet, wound care, follow-up care, driving, and getting back to your normal routine. When should you call your doctor? ?? You have questions or concerns. ? You don't understand how to prepare for your surgery. ? You become ill before the surgery (such as fever, flu, or a cold). ? You need to reschedule or have changed your mind about having the surgery. Where can you learn more? 1. Go to [employer] or [employer]. 2. Enter D130 in the search box. Current as of: August 10, 2017 Content Version: 11.7 ?? [id number] [employer] documented in this encounter OR Notes H&P - Veronica Heredia DO - 05/21/2018 1:00 PM CDT PREOPERATIVE ASSESSMENT Date of Service: 05/21/2018 Date of : 1940 Age: 77 y.o. Sex: female Preoperative Evaluation completed by: Veronica Heredia DO Primary care physician: Veronica Heredia DO [phone] CHIEF COMPLAINT Pre-Operative Evaluation ANTICIPATED PROCEDURE Chief Complaint Patient presents with ??? PRE-OP EXAM Laparoscopic hysterectomy HISTORY OF PRESENT ILLNESS This is a 77-year-old female here for preoperative evaluation with plan for laparoscopic hysterectomy for endometrial cancer with Dr. Ding at [facility] on June 12, 2018. Risk Factors/Review of Systems: (Please see flowsheets for details) Cardiovascular risks negative except for: HTN: well controlled, she has no chest symptoms, she walks, does elliptical and rows for an hour multiple days a week without symptoms Other: Echo 2017 with [facility] Renal risks negative except for: Neuro risks negative except for: GI risks negative except for: Pulmonary risks negative except for: Endocrine/Nutrition risks negative except for: Hematologic Disease risks negative except for: Musculoskeletal/Skin risks negative except for: Mental Health risks negative except for: Code Status: Full Code, Other risk factors negative except for: Intra-abdominal or intra-thoracic disorders, potential blood loss, total joint replacement: Complete review of systems is otherwise negative, except for PMB. Patient Active Problem List Diagnosis ??? Essential hypertension (HRC) ??? Hyperlipidemia (HRC) ??? Esophageal reflux ??? BMI 34.0-34.9,adult ??? Calculus of kidney ??? Endometrial cancer (HRC) Past Medical History: Diagnosis Date ??? [...] cozaar ??? Obesity (HRC) 04/30/2006 LW Onset: [id number] ??? Postmenopausal 04/16/2015 resolved ??? Zoster Past Surgical History: Procedure Laterality Date ??? BUNIONECTOMY Family History Problem Relation Age of Onset ??? Arthritis Mother ??? Cancer Mother 73 liver ??? Arthritis Father ??? Kidney/Bladder Disease Father ??? Arthritis Sister ??? Depression Sister ??? High Blood Pressure Sister ??? Anxiety Sister ??? Heart Failure Paternal Grandfather ??? Heart Failure Maternal Grandfather ??? Cancer, Breast Negative Family History ??? Cancer, Ovary Negative Family History ??? Cancer, Endometrial Negative Family History Social History Social History ??? Marital status: Single Spouse name: N/A ??? Number of children: N/A ??? Years of education: N/A Occupational History ??? Not on file. Social History Main Topics ??? Smoking status: Never Smoker ??? Smokeless tobacco: Never Used ??? Alcohol use Yes Comment: Alcoholic Drinks/day: 1-2 x per year ??? Drug use: No ??? Sexual activity: Not on file Other Topics Concern ??? Bike Helmet Yes ??? City Water Yes ??? Exercise Yes ??? Guns In Home No ??? Seat Belt Yes ??? Special Diet No ??? Weight Concern Yes Social History Narrative Current Outpatient Prescriptions Medication Sig Dispense Refill ??? aspirin EC 81 MG enteric coated tablet Take 1 tablet by mouth daily (every 24 hours). 13 ??? cholecalciferol (VITAMIN D3) 1000 units tablet Take 1,000 Units by mouth daily. ??? losartan (COZAAR) 100 MG tablet TAKE 1 TAB BY MOUTH DAILY. 90 Tab 3 ??? metoprolol succinate (TOPROL XL) 25 MG 24 hour release tablet Take 1 Tab by mouth daily. Take with Toprol XL 50 mg tab to equal 75 mg. 90 Tab 3 ??? metoprolol succinate (TOPROL XL) 50 MG 24 hour release tablet TAKE 1 TAB BY MOUTH DAILY. DISCONTINUE ATENOLOL. 90 Tab 3 ??? simvastatin (ZOCOR) 20 MG tablet Take 1 Tab by mouth daily. 90 Tab 3 No current facility-administered medications for this visit. Allergies Allergen Reactions ??? Contrast [Iodinated Diagnostic Agents] Anaphylaxis ??? Penicillins Hives ??? Sulfa Antibiotics Hives PHYSICAL EXAMINATION Pulse: 68 (05/21/18 1311) BP: 136/84 (05/21/18 1311) Height: 5' 3.25 (160.7 cm) (05/21/18 1311) Weight: 196 lb (88.9 kg) (05/21/18 1311) BMI (Calculated): 34.52 (05/21/18 1311) General Appearance: Normal HEENT: Normal Neck: Normal Lungs: Normal Heart: Normal Abdomen: Normal Extremities: Normal Skin: Normal Neurologic: Normal TEST RESULTS AND DATE EKG done: Yes: date and results: Normal sinus rhythm poor RWP Borderline ECG When compared with ECG of 04-AUG-2017 20:37, No significant change was found Confirmed by JAN COPELAND ([id number]) on 04/25/2018 4:08:01 PM Echo completed after the ECG from 08/04/2017 with normal wall motion and she has normal exercise tolerance without chest symptoms currently Labs done: Yes: date and results: Lab Results Component Value Date/Time White Blood Cell Count 6.0 05/21/2018 1355 Red Blood Cell Count 4.58 05/21/2018 1355 Hemoglobin 13.3 05/21/2018 1355 Hematocrit 41.0 05/21/2018 1355 Mean Corpuscular Volume 89.5 05/21/2018 1355 RDW 13.0 05/21/2018 1355 Platelet Count 188 05/21/2018 1355 ASSESSMENT 1. Preoperative Assessment: This patient has been examined by me today and has been found to be a suitable candidate for surgery: Yes 2. Avoid NSAIDs for 7 days prior to surgery. Hold herbal and OTC supplements for 7 days prior to surgery. If acutely ill contact the surgery center. 3. Hold aspirin 7 days prior to surgery. RECOMMENDATIONS AND PLAN Day of surgery testing: none Medication recommendations including insulin / diabetes: as above Additional screening recommended: no Consult (Cardiology/other): [...] REVIEWED WITH PATIENT: yes Veronica Heredia DO 05/21/2018 documented in this encounter Plan of Treatment Not on filedocumented as of this encounter Results CBC - Complete Blood Count-No Diff (05/21/2018 1:55 PM CDT) P athologist Signature White Blood Cell 6.0 3.8 - 11.0 PN SOFT Count k/cmm Red Blood Cell 4.58 3.70 - PN SOFT Count 5.20 m/cmm Hemoglobin 13.3 11.8 - PN SOFT 15.5 g/dL Hematocrit 41.0 35.0 - PN SOFT 46.0 % Mean Corpuscular 89.5 80.0 - PN SOFT Volume 100.0 fL RDW 13.0 11.0 - PN SOFT 15.0 % Platelet Count 188 140 - 450 PN SOFT k/cmm Specimen Anatomical Collection Method Collection Time Receive d Time (Source) Location / / Volume Laterality 05/21/2018 1:55 PM 8 1:55 CDT PM CDT Narrative PN SOFT - 05/21/2018 2:04 PM CDT Performed at [facility], [address] [place] [address] ??CLIA number [id number] Veronica Heredia DO LAB_1 Performing Organization Address City/State/ZIP Code Phon e Number PN SOFT [address] [place] [address] [phone] documented in this encounter Visit Diagnoses Diagnosis Preoperative examination - Primary Preoperative examination, unspecified Essential hypertension (HRC) Unspecified essential hypertension Preoperative examination Preoperative examination, unspecified documented in this encounter Care Teams Char Filter Operator Relationship Specialty Start Date End Date Veronica Heredia DO PCP - General Family Practice 03/22/17 [address] [facility] [place] [address] documented as of this encounter
--- OUTSIDE RECORDS SUMMARY | 2022-08-15 14:53 | XMS_ITS | Encounter Summary ---
:1940 Author Organization [facility] Address [address] [place] [address] Care Team Providers Name Role Phone Veronica Heredia DO Primary Care Provider Reason for Visit Auth/Cert Specialty Diagnoses / Procedures Referred By Contact Refer red To Contact Diagnoses Endometrial cancer (HRC) Referral ID Status Reason Start Date Expiration Date Visits Requ ested Visits Authorized [id number] 1 1 Encounter Details Date Type Department Care Team Description 06/12/2018 Surgery Rastafarian Operating Eren Ding MD Laparascopic total Room [address] hysterectomy, bilateral [address] [facility] 5th Floor salpingoopherectomy, [place], [place] cy stoscopy [phone] (Wo rk) Social History Tobacco Use Types [...] Sign Reading Time Taken Comments Blood Pressure 151/99 06/12/2018 7:59 AM CDT Pulse 96 06/12/2018 7:59 AM CDT Temperature 36 ??C (96.8 ??F) 06/12/2018 7:59 AM CDT Respiratory Rate 18 06/12/2018 7:59 AM CDT Oxygen Saturation 95% 06/12/2018 7:59 AM CDT Inhaled Oxygen Concentration - - [...] [facility] T Kaleigh Jaquez MD - 06/13/2018 8:00 AM CDT Entered in error T Kaleigh Jaquez MD - 06/13/2018 6:00 AM CDT [facility] PAIN MANAGEMENT NURSE PRACTITIONER ONC PROGRESS NOTE Post Operative Day #1 [...] Range Cytology Spec Rec'd Narrative Performed at [facility], [address] [place] [id number] CLIA number [id number] Anatomic Pathology, Rastafarian OR Result Value Ref Range Rastafarian OR Pathology Rcv'd in Histo Narrative Performed at [facility], [address] [place] [address] CLIA number [id number] Heme: Hgb 13 >EBL 50 Assessment/Plan Michele Angulo is a 77 y.o. old female POD#1 s/p TLH-BSO, cysto for grade II endometrial adenocarcinoma,admitted to extended recovery overnight. She is recovering well. Meeting all post op goals. Did havesome hypertension overnight so home meds restarted. Okay for discharge this morning Follow up scheduled with Dr. Ding on 06/27. Kaleigh Jaquez MD 06/12/2018 FIELD SERVICE MANAGER Hernandez Chandler RN - 06/13/2018 3:11 AM CDT Pt B/P 161/98,MD notified and verbal order of 100mg Lorsatan received. Kaleigh Jaquez MD - 06/12/2018 6:59 PM CDT For patient concerns please page: 6 am to 6 pm: page Kaleigh Jaquez [phone] Sunday to Sunday 6 pm -6:00 am: ??Please page the oncology cross cover at [phone] (note: pleaseinclude full callback number as this [...] Jaquez MD - 06/12/2018 11:30 AM CDT [facility] Brief Operative Progress Note Surgery Date: 06/12/2018 [...] jets noted on cystoscopy. Kaleigh Jaquez MD FIELD SERVICE MANAGER Kaleigh Jaquez MD - 06/12/2018 8:10 AM CDT [facility] Gynecologic Oncology Operative Report Michele Angulo [...] 2-0 Vicryl suturein a series of interrupted [id number]-[id number] using the EndoStitch device. The jones cather [...] in the entire procedure. Kaleigh Jaquez MD TRANSMISSION AND PROTECTION ENGINEER PGY-3 Associated attestation - Tre Ding MD [...] Routine 06/12/2018 10:50 Resu lts for this TENRIISM OR AM CDT procedure are i n [...] documented in this encounter Results Anatomic Pathology, Rastafarian OR (06/12/2018 10:50 AM CDT) Analysis Performed At Patho logist Time Signature Rastafarian OR Rcv'd in PN SOFT Pathology Histo Specimen Anatomical Collection Method Collection Time Receive d Time (Source) Location / / Volume Laterality 06/12/2018 10:50 06/12/2018 AM CDT 10:52 AM CDT Narrative PN SOFT - 06/12/2018 10:52 AM CDT Performed at [facility], [facility] [place] [address] CLIA number [id number] Tre Ding MD LAB_1 Performing Organization Address City/[facility]/ZIP Code Phon e Number PN SOFT [address] [place] [address] Cytology (06/12/2018 10:36 AM CDT) P athologist Signature Cytology Spec Rec'd PN SOFT Specimen Anatomical Collection Method Collection Time Receive d Time (Source) Location / / Volume Laterality 06/12/2018 10:36 06/12/2018 AM CDT 12:30 PM CDT Narrative PN SOFT - 06/12/2018 12:30 PM CDT Performed at [facility], [address] [place] [address] CLIA number [id number] Tre Ding MD LAB_1 Performing Organization Address [facility]/ZIP Code Phon e Number PN SOFT [address] [place] [address] Bedside Glucose Monitor (06/12/2018 7:44 AM CDT) athologist Signature Bedside Blood 104 mg/dL PN SOFT Glucose Test Comment: Performed at [address] [place] [address] Specimen Anatomical Collection Method Collection Time Receive d Time (Source) Location / / Volume Laterality 06/12/2018 7:44 AM 8 7:50 CDT AM CDT Tre Ding MD LAB_1 Performing Organization Address City/[facility] Code Phon e Number PN SOFT [address] [place] [address] Cytology Report (06/12/2018 7:00 AM CDT) [facility] gist Method Time Signature Path: FINAL CYTOLOGY REPORT PN SOFT Pathology #: [id number] ?Date Obtain ed: 06/12/2018 ? Date Received: [...] microscopic examination has been performed. Performed at [facility], [address] [facility], [place] [address] Specimen Anatomical Collection Method Collection Time Receive d Time (Source) Location / / Volume Laterality Pelvis: 06/12/2018 7:00 AM 8 7:00 CDT AM CDT Tre Ding MD LAB_1 Performing Organization Address City/State/ZIP Code Phon e Number PN SOFT [address] [place] [address] [phone] Pathology Report (06/12/2018 7:00 AM CDT) [facility] Method Time Signature Path: FINAL SURGICAL PATHOLOGY REPORT PN SOFT Pathology #: [id number] ? Date Obtained: 06/12/2018 ?Date Received: 06/12/2018 [...] The tumor ?? grossly appears superficial. ??A community relations representative section is submitted ?? for frozen [...] d imension, no myometrial invasion. (ANUPAMA) ? [facility] MICROSCOPIC DESCRIPTION: The microscopic examination has been performed. Performed at [facility], [facility] [facility], [place] [address] Specimen Anatomical Collection Method Collection Time Receive d Time (Source) Location / / Volume Laterality UTERINE STRUCTURE 06/12/2018 7:00 AM 080 06/2018 7:00 / Unknown CDT AM CDT Tre Ding MD LAB_1 Performing Organization Address City/State/ZIP Code [facility] e Number PN SOFT [address] [place] [address] [phone] documented in this encounter Visit Diagnoses Diagnosis Endometrial cancer (HRC) - Primary Malignant neoplasm of corpus uteri, exce pt isthmus Endometrial cancer (HRC) Malignant neoplasm of corpus [...] at 2000, Until Discontinued, as stool-softener, Post-op ibuprofen (MOTRIN) tablet 600 mg Given 06/13/2018 [...] 100 mg, Oral, DAILY, First dose on Shahla 06/13/18 at 0315, Until Discontinued metoprolol succinate (TopROL XL) extended Given 06/13/2018 5:30 AM CDT 75 mg release tablet 75 mg 75 mg, Oral, DAILY, First dose (after last modification) on Shahla 06/13/18 at 0530, Until Discontinued, Tablet should be swallowed whole, Post-op ondansetron (ZOFRAN) injection 4 mg 4 mg, Intravenous, ONCE PRN, Nausea, Starting on Sun at 0734, Until Shahla 06/13/18 at 1228, For 1 dose, Give in pre-op holding if needed., Pre-op oxyCODONE (ROXICODONE) immediate release tablet Given 06/12/2018 4:00 PM CDT 5 mg 5-10 mg 5-10 mg, Oral, Q4H PRN, Other, Moderate Pain (pain score 5-7), Starting on Sun06/12/18 at 1426, Until Shahla 06/13/18 at 1228 documented in this encounter Active and Recently Administered Medications Times are shown in CDT. Scheduled Medication Order 06/11/2018 06/12/2018 06/13/2018 clindamycin in dextrose 5% (CLEOCIN) IVPB 900 mg (COMPLETED) 0915 (Given - Provider: Anuja Lopez APRN, GAS LOAD DISPATCHER)1000 (Due) 900 mg, Intravenous, Administer over 30 Minutes, ONCE, Sun06/12/18 at 1000, For 1 dose, Give within 60 minutes prior to incision; then re-dose 900 mg IV every 6 hours until incision closed., Pre-op docusate sodium (COLACE) capsule 100 mg 2000 (Not Given - Provider: Charlee Villela RN - Reason: Patient/family refused) 0956 (Given - Provider: Fiona Lyn RN) 100 [...] Patient/family refused) 0545 (Given - Provider: Hernandez meyer, AYALA) 600 mg, Oral, Q6H (NON-STND), First dose on Sun06/12/18 at 1745, DO NOT GIVE while patient is receiving ketorolac (TORADOL). First dose to begin 4 hours after last dose of ketorolac (TORADOL)., Post-op losartan (COZAAR) tablet TABS 100 mg 0315 (Given - Provider: Hernandez Chandler RN) 100 mg, Oral, DAILY, First dose on Shahla 06/13/18 at 0315 magnesium hydroxide (MILK OF MAGNESIA) [...] 75 mg, Oral, DAILY, First dose on Shahla 06/13/18 at 0530, Tablet should be swallowed whole, [...] RN)1017 (Started - Provider: Anuja Lopez APRN, GAS LOAD DISPATCHER)1132 (Anesthesia Fluid - Provider: Anuja L Scott, ALMOND SORTER, GAS LOAD DISPATCHER) 25 mL/hr, Intravenous, at 25 mL/hr, CONT [...] (SUBLIMAZE) injection 25-100 mcg 25-100 mcg, Intravenous, [id number], Pain, Sedation, Procedure, Severe Pain (pain score 8-10), Starting Sun06/12/18 at 0823, Notify Anesthesiologist if total cumulative dose in excess of 250 mcg., Pre-op fentaNYL (SUBLIMAZE) injection 25-50 mcg 25-50 mcg, Intravenous, [id number], Other, Moderate to Severe Pain (pain score [...] at 1726, HOLD if patient is on LIME KILN TENDER. Not to exceed 1.5 mg in 2 [...] (DEMEROL) injection 12.5 mg 12.5 mg, Intravenous, [id number], Shiverin g, Starting Sun06/12/18 at 0823, For 2 doses, Maximum cumulative dose is 25 mg. Do not give to patients receiving MAO inhibitors (e.g. phenelzine (NARDIL), tranylc ypromine (PARNATE), selegiline (ELDEPRYL))., PACU/Recovery midazolam (VERSED) injection 1-2 mg 1-2 mg, Intravenous, [id number], Sedation, Anxiety, Procedure, Starting Sun06/12/18 at 0823, MAX Dose 2mg, Pre-op morphine injectable 1-2 mg 1-2 mg, Intravenous, [id number], Other, Mo derate to Severe Pain (pain [...] oral and IV opioids. Hold if on LIME KILN TENDER., Post-op simethicone (MYLICON) chewable tablet 80 mg 80 mg, Oral, QID PRN, Flatulence, Starting Sun06/12/18 at 1726, P ost-op documented in this encounter Care Teams Reshipping Clerk Relationship Specialty Start Date End Date Veronica Heredia DO PCP - General Family Practice 03/22/[address] [place], [place] [address] documented as of this encounter
--- OUTSIDE RECORDS SUMMARY | 2022-08-15 14:53 | XMS_ITS | Encounter Summary ---
:1940 Author Organization [facility] Address [address] [place] [address] Care Team Providers Name Role Phone Veronica Heredia DO Primary Care Provider Reason for Referral (Routine) - Closed Specialty Diagnoses / Procedures Referred By Contact Refer red To Contact Diagnoses Screening for colon cancer Veronica Heerdia, Procedures Colonoscopy [address] [facility] [place] [address] Referral ID Status Reason Start Date Expiration Date Visits Requ ested Visits Authorized [id number] Closed 07/29/2018 10/28/2019 1 1 Reason for Visit Reason Comments Diarrhea Encounter Details Date Type Department Care Team Description 07/29/2018 Office Visit Sawyer Hernandez Veronica Heredia, Acute vanessa rrhea (Primary Dx); Medicine DO Essential hypertension; [address] [facility] [address] [facility] Need for influenza vaccination; [facility] Screening for colon cancer [place] [address] [place] [phone] Social History Tobacco Use Types Packs/Day Years [...] Sign Reading Time Taken Comments Blood Pressure 139/84 07/29/2018 11:00 AM CDT Pulse 88 07/29/2018 10:46 AM CDT Temperature 36.6 ??C (97.9 ??F) 07/29/2018 11:00 AM CDT Respiratory Rate - - Oxygen Saturation - - Inhaled Oxygen Concentration - - Weight 86.5 kg (190 lb 12.8 oz) 07/29/2018 10:46 AM CDT Height - - Body Mass Index 32.75 07/26/2018 6:33 AM CDT documented in this encounter Patient Instructions Patient InstructionsDiandraNarda gold, INCLUSION SPECIALIST - 07/29/2018 10:51 AM CDT Images from the original note were not included. Healthy Weight Matters Understanding body mass index Your body mass index, or BMI, is a good way to check if your weight is healthy for your height. YourBMI helps us find out if your weight is putting your health at risk. If you are overweight or have obesity, your risk increases for developing health problems, such as type 2 diabetes, heart disease, high blood pressure and stroke. Your BMI measurement alone cannot predict your health risk. But if you know your BMI is high, you can take steps to set healthy goals and improve your overall well-being. Check your BMI using the tableon the back. Regardless of your BMI, we recommend making the following habits part of your daily life: ? Eat 5 servings of fruits and vegetables a day. ? Pay attention to portion sizes. ? Replace sugar-sweetened beverages with water or other calorie-free beverages. What can I do to improve my BMI? Losing weight is an important way to reduce your BMI and improve your overall health and well- being. Start small. Aim to lose a few pounds to begin rather than worry about your ideal weight. Here are some tips: ? Be physically active. Do activities that you enjoy, give you energy and are safe for you to do. Gradually build up the intensity (how hard your body is working) of activity. Long-term, aim for 30 minutes or more of activity most days of the week. Remember to check with your doctor before startingany physical activity program. ? Eat real (not processed) food. Eat mostly vegetables, fruit, whole grains and lean proteins. That way, you--not food manufacturers--control the ingredients that go into your meals. ? Aim for 5 servings of fruits and vegetables a day. Choose a variety of vegetables with different colors. Have fresh fruit for dessert. Limit deep-fried vegetables, such as gibraltarian fries. ? Choose lean protein, such as chicken or fish. Try non-meat sources of protein such as beans, soy and other legumes. ? Choose whole grains. Whole grain foods, such as whole-wheat bread, brown rice, barley, quinoa and oatmeal, contain the entire grain kernel and are better for your health. Limit refined grains, such as white bread and rice. ? Satisfy hunger with unsaturated fat. Fat helps you feel satisfied. Choose unsaturated fats, such as canola or olive oils, nuts and seeds, oil-based dressings and avocados. Limit saturated fats, whichare found in animal products and some plant oils, such as coconut and palm oils. ? Pay attention to portion sizes. Use smaller plates, bowls and glasses. Portion out foods before you eat. ? Drink water or unsweetened beverages. Avoid soda, sweetened coffees and teas, energy drinks and sports drinks, which are full of added sugar that your body does not need. Water is always the best option. ? Eat mindfully. Take time to fully enjoy [...] your body???s signals of hunger and fullness. ? Share meals when eating at restaurants, or put half of the entr??e in a to-go container before youstart eating. Body mass index (BMI) table First, find your height in the left-hand column. Then, follow the row over until you find your weight. Your BMI is the number where the row and column meet. Nutrition Services One-on-one visits with a registered dietitian are available at various clinic locations to help you develop a personalized plan for managing your weight. We also offer classes led by dietitians on a variety of topics. To schedule an appointment, find the clinic that works best for you. ? For [facility] locations, call [phone]. ? For [facility] locations, call [phone]. ? For [facility] locations and [facility], call [phone]. ? For [facility] and [facility], call [phone]. ? For [facility], call [phone]. (03/2018) ??[facility] Healthy Weight Matters Understanding body mass index Your body mass index, or BMI, is a good way to check if your weight is healthy for your height. YourBMI helps us find out if your weight is putting your health at risk. If you are overweight or have obesity, your risk increases for developing health problems, such as type 2 diabetes, heart disease, high blood pressure and stroke. Your BMI measurement alone cannot predict your health risk. But if you know your BMI is high, you can take steps to set healthy goals and improve your overall well-being. Check your BMI using the tableon the back. Regardless of your BMI, we recommend making the following habits part of your daily life: ? Eat 5 servings of fruits and vegetables a day. ? Pay attention to portion sizes. ? Replace sugar-sweetened beverages with water or other calorie-free beverages. What can I do to improve my BMI? Losing weight is an important way to reduce your BMI and improve your overall health and well- being. Start small. Aim to lose a few pounds to begin rather than worry about your ideal weight. Here are some tips: ? Be physically active. Do activities that you enjoy, give you energy and are safe for you to do. Gradually build up the intensity (how hard your body is working) of activity. Long-term, aim for 30 minutes or more of activity most days of the week. Remember to check with your doctor before startingany physical activity program. ? Eat real (not processed) food. Eat mostly vegetables, fruit, whole grains and lean proteins. That way, you--not food manufacturers--control the ingredients that go into your meals. ? Aim for 5 servings of fruits and vegetables a day. Choose a variety of vegetables with different colors. Have fresh fruit for dessert. Limit deep-fried vegetables, such as gibraltarian fries. ? Choose lean protein, such as chicken or fish. Try non-meat sources of protein such as beans, soy and other legumes. ? Choose whole grains. Whole grain foods, such as whole-wheat bread, brown rice, barley, quinoa and oatmeal, contain the entire grain kernel and are better for your health. Limit refined grains, such as white bread and rice. ? Satisfy hunger with unsaturated fat. Fat helps you feel satisfied. Choose unsaturated fats, such as canola or olive oils, nuts and seeds, oil-based dressings and avocados. Limit saturated fats, whichare found in animal products and some plant oils, such as coconut and palm oils. ? Pay attention to portion sizes. Use smaller plates, bowls and glasses. Portion out foods before you eat. ? Drink water or unsweetened beverages. Avoid soda, sweetened coffees and teas, energy drinks and sports drinks, which are full of added sugar that your body does not need. Water is always the best option. ? Eat mindfully. Take time to fully enjoy [...] your body???s signals of hunger and fullness. ? Share meals when eating at restaurants, or put half of the entr??e in a to-go container before youstart eating. Body mass index (BMI) table First, find your height in the left-hand column. Then, follow the row over until you find your weight. Your BMI is the number where the row and column meet. Nutrition Services One-on-one visits with a registered dietitian are available at various clinic locations to help you develop a personalized plan for managing your weight. We also offer classes led by dietitians on a variety of topics. To schedule an appointment, find the clinic that works best for you. ? For [facility], call [phone]. ? For [facility] locations, call [phone]. ? For [facility] and [facility], call [phone]. ? For [facility], call [phone]. ? For [facility], call [phone]. (03/2018) ??[facility] documented in this encounter Progress Notes Veronica Heredia DO - 07/29/2018 11:30 AM CDT CHIEF COMPLAINT: Chief Complaint Patient presents with ??? Diarrhea SUBJECTIVE : This is a 77 y.o. female patient who presents ED follow-up, she was seen on 07/26/2018 for watery diarrhea. Prior to her emergency department visit she had been experiencing watery diarrhea without blood present for about one week, at the time of her emergency department visit she is having about 8 stools per day, at the time she tried Imodium but this was not helping. Yesterday she notes that she had2-3 small bowel movements, no large-volume stool loss. Today she has had one stool so far and there was more solid component present. She is eating and drinking normally. She has no abdominal discomfort. No nausea or vomiting. No blood in her stools. No fever. She feels as though she is improving. Shedoes recall eating out at [facility] prior to onset of her illness. No recent travel. No recent antibiotics. She will be traveling to her home in [place] in 2 days. History of hypertension, controlled, no current chest symptoms. Last colonoscopy 03/2008, she knows she is due currently she was just busy this past year since treatment for endometrial cancer. PAST MEDICAL HISTORY : Patient Active Problem List Diagnosis ??? Essential hypertension (HRC) ??? Hyperlipidemia (HRC) ??? Esophageal reflux ??? BMI 34.0-34.9,adult ??? Calculus of kidney ??? Endometrial cancer (HRC) MEDICATIONS : Current Outpatient Prescriptions Medication Sig Dispense Refill ??? acetaminophen (TYLENOL) [...] ??? simvastatin (ZOCOR) 20 MG tablet TAKE ONE TABLET BY MOUTH DAILY 90 Tablet 3 No current facility-administered medications for this visit. ALLERGIES: Allergies Allergen Reactions ??? Contrast [Iodinated Diagnostic Agents] Anaphylaxis ??? Penicillins Hives ??? Sulfa Antibiotics Hives OBJECTIVE : Vital Signs: BP 139/84 Pulse 88 Temp 97.9 ??F (36.6 ??C) (Oral) Wt 190 lb 12.8 oz (86.5 kg) BMI 32.75 kg/m2 Gen.: Alert, cooperative in no acute distress. Elderly, pleasant. Head: Normocephalic, atraumatic. Eyes: No scleral icterus [...] tone. Skin: No pallor. Neurologic: Alert, non-focal. ED note and labs reviewed, including negative enteric stool panel. ASSESSMENT/PLAN: ICD-10-CM 1. Acute diarrhea R19.7 2. Essential hypertension (HRC) I10 3. Need for influenza vaccination Z23 4. Screening for colon cancer Z12.11 Colonoscopy 1. Diarrhea mostly resolved, no abdominal pain currently. 2. HTN, controlled, f/u q6mo. CV risk assessment provided. 3. HM: Due for colon cancer screening, she is aware and will do this in the Spring. Due for medicareannual wellness. Advanced directive paperwork also provided. She will get her flu shot in [place] and declines today. 4. RTC if not improving or worsening and in 6 months for follow-up HTN. This was dictated using a voice recognition program, typographical and sound like errors may occur. documented in this encounter Plan of Treatment Scheduled Orders Name Type Priority Associated Diagnoses Order S chedule Colonoscopy GI Routine Screening for colon cancer 1 Occurrences starting 07/29/2018 unti l 07/28/2020 documented as of this encounter Visit Diagnoses Diagnosis Acute diarrhea - Primary Diarrhea Essential hypertension (HRC) Unspecified essential hypertension Need for influenza vaccination Need for prophylactic vaccination and in oculation against influenza Screening for colon cancer Special screening for malignant neoplasm s, colon documented in this encounter Care Teams Athlete Manager Relationship Specialty Start Date End Date Veronica Heredia DO PCP - General Family Practice 03/22/17 [address] [facility] [place] [id number] documented as of this encounter
--- OUTSIDE RECORDS SUMMARY | 2022-08-15 14:53 | XMS_ITS | Encounter Summary ---
:1940 Author Organization [employer] Address [address] [place] [address] Care Team Providers Name Role Phone Veronica Heredia DO Primary Care Provider Reason for Visit Reason Comments LAB RESULTS Encounter Details Date Type Department Care Team Description 02/05/2019 Telephone [facility] Veronica Heredia, DO LAB RESULTS [address] [facility] [address] [facility] [place] [address] [place] [address] [phone] Social History Tobacco Use Types Packs/Day Years [...] as of this encounter Nursing Notes Jayne Moffett LPN - 02/06/2019 11:05 AM CDT Patient informed of labs and new Rx sent into pharmacy. She will return for BP ck with nurse and labs in 1 month. Acknowledged understanding. Veronica Heredia DO - 02/05/2019 2:58 PM CDT Please call with lab results, her electrolyte panel and kidney function are normal. A combination Losartan/hydrochlorothiazide has been sent in for her to replace the Losartan plain, plan for a nurse blood pressure recheck in one week and lab recheck in one month. documented in this encounter Plan of Treatment Not on filedocumented as of this encounter Visit Diagnoses Not on filedocumented in this encounter Care Teams Trumpet Teacher Relationship Specialty Start Date End Date Veronica Heredia DO PCP - General Family Practice 03/22/[address] [facility] [place]ANDELL Redman [address] documented as of this encounter
--- OUTSIDE RECORDS SUMMARY | 2022-08-15 14:53 | XMS_ITS | Encounter Summary ---
:1940 Author Organization [facility] Address [address] [place] [address] Care Team Providers Name Role Phone Veronica Heredia DO Primary Care Provider Reason for Visit Reason Comments Medicare Annual Wellness Follow-up BP Encounter Details Date Type Department Care Team Description 02/05/2019 Office Visit [facility] Veronica Heredia, Encounter for Medicare annual wellness exam (Primary Dx); Medicine DO Essential hypertension; [address] [facility] [address] [facility] Hyperlipid emia, unspecified hyperlipidemia type; [facility] [address] IFG (impaired fasting glucose) [place] [address] [place], [place] [phone] [address] Social History Tobacco Use Types Packs/Day Years [...] Sign Reading Time Taken Comments Blood Pressure 152/89 02/05/2019 8:40 AM CDT Pulse 68 02/05/2019 8:26 AM CDT Temperature - - Respiratory Rate - - Oxygen Saturation - - Inhaled Oxygen Concentration - - Weight 92.9 kg (204 lb 14.4 oz) 02/05/2019 8:26 AM CDT Height 159.4 cm (5' 2.75) 02/05/2019 8:26 AM CDT Body Mass Index 36.59 02/05/2019 8:26 AM CDT documented in this encounter Patient Instructions Patient InstructionsVeronica Heredia DO - 02/05/2019 8:30 AM CDT Annual Wellness Visit Summary Your care team is recommending the following tests, procedures or services. Some of these recommendations may not be fully covered by Medicare or your insurance. If you have questions, check with your insurance to determine coverage before completing these services. Health Maintenance Due Health Maintenance Due Topic Date Due ??? Medicare Annual Wellness Visit 1940 ??? Advanced Directive 2007 ??? Zoster (2 of 3) 09/13/2012 ??? Colonoscopy 03/12/2018 ??? Influenza (1) 07/06/2018 If your Medicare Welcome or Annual Wellness Visit is showing you are due in the above list, this will be updated after this visit. You had this completed today and are not due for another year. Annual Wellness Visit Summary Your care team is recommending the following tests, procedures or services. Some of these recommendations may not be fully covered by Medicare or your insurance. If you have questions, check with your insurance to determine coverage before completing these services. Health Maintenance Due Health Maintenance Due Topic Date Due ??? Medicare Annual Wellness Visit 1940 ??? Advanced Directive 2007 ??? Zoster (2 of 3) 09/13/2012 ??? Colonoscopy 03/12/2018 ??? Influenza (1) 07/06/2018 If your Medicare Welcome or Annual Wellness Visit is showing you are due in the above list, this will be updated after this visit. You had this completed today and are not due for another year. documented in this encounter Progress Notes Veronica Heredia DO - 02/05/2019 8:30 AM CDT Medicare Annual Subjective/Historical: Michele Angulo is a 78 y.o. old female Chief Complaint Patient presents with ??? Medicare Annual Wellness ??? Follow-up BP Current Concerns: HTN f/u, she is taking her medications as prescribed currently taking losartan and metoprolol without adverse side effects noted. She did check with her pharmacy to verify that her a lot of losartan was not affected by the recall. She has no chest symptoms. She tolerates walking 2 miles daily without any chest pain difficulty breathing edema or presyncope. She moved back from [place] just recently she spends love in [place]. No recent or acute illness and she has been feeling otherwise well. Sheintends to start Silver Sneakers today at the [facility] [place]. She understands she is due for a follow-up regarding her endometrial cancer with Dr. Ding. Hyperlipidemia, taking Zocor without adverse side effects. IFG, no symptoms, fasting for glucose today. Mini-Cog Assessment Word Recall: 2 Clock Draw: 2 Total: 4 Additional Assessments Completed: PHQ-2 was administered today with a total score of: 0 Has a Health Care Directive on file? no. Pertinent Positives from Medicare Wellness Form: MEDICARE ANNUAL WELLNESS CONCERNS 02/05/2019 How many servings of fruits and vegetables do you eat a day? 2 to 4 The patient's health maintenance, problem list, past medical history, past surgical history, family history, medication list, allergies, and immunization records have been reviewed and updated in the patient record as necessary. Observed Vitals: BP (!) 152/89 (BP Location: Right Arm, BP Cuff Size: Adult Large) Pulse 68 Ht 5' 2.75 (1.594 m) Wt 204 lb 14.4 oz (92.9 kg) BMI 36.59 kg/m?? Gen.: Alert, cooperative in no acute [...] on exposed skin. No pallor. Neurologic: Alert, nonfocal. Cranial nerves grossly intact. Lab Results Component Value Date Cholesterol 166 04/19/2017 Cholesterol/HDL Ratio Screen 3.8 04/19/2017 HDL Cholesterol 44 04/19/2017 Triglycerides 153 (H) 04/19/2017 LDL Calculated 91 04/19/2017 Lab Results Component Value Date Creatinine Serum 0.88 07/26/2018 Lab Glucose 114 (H) 07/26/2018 Bedside Blood Glucose Test 104 06/12/2018 CO2 26 07/26/2018 Chloride 107 07/26/2018 Potassium 3.8 07/26/2018 Sodium 142 07/26/2018 Blood Urea Nitrogen 12 07/26/2018 Calcium 9.2 07/26/2018 Est GFR Am >60 07/26/2018 Est GFR Non-Afr Am >60 07/26/2018 Assessment/Plan ICD-10-CM 1. Encounter for Medicare annual wellness exam Z00.00 2. Essential hypertension (HRC) I10 Basic Metabolic Panel Basic Metabolic Panel metoprolol succinate (TOPROL XL) 25 MG 24 hour release tablet metoprolol succinate (TOPROL XL) 50 MG 24 hour release tablet 3. Hyperlipidemia, unspecified hyperlipidemia type (HRC) E78.5 simvastatin (ZOCOR) 20 MG tablet 4. IFG (impaired fasting glucose) R73.01 Hemoglobin A1C Glycosylated HTN, not well controlled, plan to add hydrochlorothiazide 12.5 if electrolytes and kidney function will tolerate this. Continue with Toprol XL 75 mg daily. Continue with losartan 100 mg daily. Plan forrecheck of her BMP in 4 weeks after adding hydrochlorothiazide. Recheck of her blood pressure nurse only in one week. Continue simvastatin for hyperlipidemia. She will schedule her 6 month follow-up with Dr. Ding which was due in Dec but she was in [place]. Flu vaccine received in [place]. Shingrix today. Advance care directive paperwork provided, to be returned to clinic. Counseling and education provided today includes proper nutrition and health habits, fall prevention, and for those items ordered above. Plan for future preventive services in Patient Instructions. Veronica Heredia DO 02/05/2019, 10:05 AM documented in this encounter Plan of Treatment Not on filedocumented as of this encounter Results (ABNORMAL) Hemoglobin A1C Glycosylated (03/12/2019 7:54 AM CDT) Analysis Performed At Patho logist Time Signature Hemoglobin A1C 6.0 (H) <=5.6 % 03/12/2019 [facility] 12:53 PM CDT LABORATORY Specimen Anatomical Collection Method / Collection Time Recei la Time (Source) Location / Volume Laterality Blood Venipuncture / 03/12/2019 7:54 03/12/2019 7:54 Unknown AM CDT AM CDT Narrative [facility] - 03/12/2019 12:53 PM CDT For patients not previously diagnosed with diabetes: 5.7-6.4%: Increased risk for diabetes 6.5% and greater: Diagnostic for diabete s For patients diagnosed with diabetes: <8.0%: Goal of therapy for ages 18-75 Clinicians may recommend a higher or low er goal for specific individuals. Veronica Heredia DO LAB_1 Performing Organization Address City/State/ZIP Code Phon e Number [facility] [address] [place] [address] (ABNORMAL) Basic Metabolic Panel (03/12/2019 7:54 AM CDT) P athologist Signature Sodium 142 136 - 145 03/12/2019 [facility] mmol/L 12:29 PM CDT LABORATORY Potassium 3.9 3.5 - 5.1 03/12/2019 [facility] mmol/L 12:29 PM CDT LABORATORY Chloride 103 98 - 109 03/12/2019 [facility] mmol/L 12:29 PM CDT LABORATORY CO2 30 (H) 20 - 29 03/12/2019 [facility] mmol/L 12:29 PM CDT LABORATORY Anion Gap 9 7 - 16 03/12/2019 [facility] mmol/L 12:29 PM CDT LABORATORY Calcium 9.2 8.4 - 10.4 03/12/2019 [facility] mg/dL 12:29 PM CDT LABORATORY BUN 17 7 - 26 03/12/2019 [facility] mg/dL 12:29 PM CDT LABORATORY Creatinine 0.92 0.55 - 03/12/2019 [facility] 1.02 mg/dL 12:29 PM CDT LABORATORY GFR, Estimated 60 (L) >60 03/12/2019 [facility] mL/min/1.7 12:29 PM CDT LABORATORY 3m2 GFR, Est If >60 >60 03/12/2019 [facility] mL/min/1.7 12:29 PM CDT LABORATORY [place] 3m2 Glucose 96 70 - 100 03/12/2019 [facility] mg/dL 12:29 PM CDT LABORATORY Comment: The given reference range is fo r the fasting state. Non-fasting reference range for glucose is 70 - 180 mg/dL. Specimen Anatomical Collection Method / Collection Time Recei la Time (Source) Location / Volume Laterality Blood Venipuncture / 03/12/2019 7:54 03/12/2019 7:54 Unknown AM CDT AM CDT Veronica Heredia LAB_1 Performing Organization Address City/State/ZIP Code Phon e Number [facility] [address] [place] [address] Basic Metabolic Panel (02/05/2019 9:37 AM CDT) P athologist Signature Sodium 143 136 - 145 02/05/2019 [facility] mmol/L 2:02 PM CDT LABORATORY Potassium 4.2 3.5 - 5.1 02/05/2019 [facility] mmol/L 2:02 PM CDT LABORATORY Chloride 107 98 - 109 02/05/2019 [facility] mmol/L 2:02 PM CDT LABORATORY CO2 28 20 - 29 02/05/2019 [facility] mmol/L 2:02 PM CDT LABORATORY Anion Gap 8 7 - 16 02/05/2019 [facility] mmol/L 2:02 PM CDT LABORATORY Calcium 9.2 8.4 - 10.4 02/05/2019 [facility] mg/dL 2:02 PM CDT LABORATORY BUN 14 7 - 26 02/05/2019 [facility] mg/dL 2:02 PM CDT LABORATORY Creatinine 0.86 0.55 - 02/05/2019 [facility] 1.02 mg/dL 2:02 PM CDT LABORATORY GFR, Estimated >60 >60 02/05/2019 [facility] mL/min/1.7 2:02 PM CDT LABORATORY 3m2 GFR, Est If >60 >60 02/05/2019 [facility] mL/min/1.7 2:02 PM CDT LABORATORY [place] 3m2 Glucose 96 70 - 100 02/05/2019 [facility] mg/dL 2:02 PM CDT LABORATORY Specimen Anatomical Collection Method / Collection Time Recei la Time (Source) Location / Volume Laterality Blood Venipuncture / 02/05/2019 9:37 02/05/2019 9:37 Unknown AM CDT AM CDT Veronica Heredia DO LAB_1 Performing Organization Address City/State/ZIP Code Phon e Number [facility] [address] [place] [address] documented in this encounter Visit Diagnoses Diagnosis Encounter for Medicare annual wellness e xam - Primary Essential hypertension (HRC) Unspecified essential hypertension Hyperlipidemia, unspecified hyperlipidem ia type (HRC) IFG (impaired fasting glucose) Impaired fasting glucose documented in this encounter Care Teams It Communications Specialist Relationship Specialty Start Date End Date Veronica Heredia DO PCP - General Family Practice 03/22/17 [address] [facility] RANDELL Redman [address] documented as of this encounter
--- OUTSIDE RECORDS SUMMARY | 2022-08-15 14:53 | XMS_ITS | Encounter Summary ---
:1940 [facility] Address [address], [place] [address] Care Team Providers Name Role Phone Veronica Heredia DO Primary Care Provider Reason for Visit Reason Comments APPOINTMENT REQUEST Encounter Details Date Type Department Care Team Description 07/28/2018 Telephone [facility] Veronica Heredia, DO APPOINTMENT REQUEST [id number] [facility] [address] [facility] [place] [address] [place] [address] [phone] (Wo rk) Social History Tobacco Use Types [...] documented as of this encounter Nursing Notes Jessica Hogan RN - 07/28/2018 7:18 AM CDT Spoke with patient states needs to schedule follow up appointment with PCP. Was seen in [facility] 07/27/18 for diarrhea. Patient to follow up with PCP Sunday. Patient scheduled: Future Appointments Date Time Provider Department Center 07/29/2018 11:30 AM Veronica Heredia DO [facility] Agrees and is comfortable with appointment. Problem list, medications and allergies reviewed. documented in this encounter Plan of Treatment Not on filedocumented as of this encounter Visit Diagnoses Not on filedocumented in this encounter Care Teams Mineral Wool Insulation Supervisor Relationship Specialty Start Date End Date Veronica Heredia DO PCP - General Family Practice 03/22/17 [address] [facility] RANDELL Redman [id number] documented as of this encounter
--- OUTSIDE RECORDS SUMMARY | 2022-08-15 14:53 | XMS_ITS | Encounter Summary ---
:1940 Author Organization [facility] Address [address] [address] Care Team Providers Name Role Phone RobleskarinaVeronica DO Primary Care Provider Reason for Visit Reason Comments Follow-up Encounter Details Date Type Department Care Team Description 07/19/2018 [facility] Dee Baker, Endometr ial cancer Gynecologic Oncology ONCOLOGY TECHNICIAN, MAGALYS (HRC) (Primary Dx) [address] [place] [address] [phone] Social History Tobacco Use Types Packs/Day Years [...] Sign Reading Time Taken Comments Blood Pressure 153/76 07/19/2018 10:09 AM CDT Pulse 75 07/19/2018 10:09 AM CDT Temperature - - Respiratory Rate - - Oxygen Saturation - - Inhaled Oxygen Concentration - - Weight 86.6 kg (191 lb) 07/19/2018 10:09 AM CDT Height 160.7 cm (5' 3.25) 07/19/2018 10:09 AM CDT Body Mass Index 33.57 07/19/2018 10:09 AM CDT documented in this encounter Progress Notes Dee Baker APRN, MAGALYS - 07/19/2018 10:15 AM CDT Follow Up Notes on Referred Patient RE: Michele Angulo : 1940 [place]: 07/19/2018 Michele Angulo is a 77 y.o. old woman with a diagnosis of Stage 1A grade 2 endometrial cancer. She is here today for vaginal spotting. 06/12/18: Total laparoscopic hysterectomy, bilateral salpingo-oophorectomy, cystoscopy Current status: Pt. Is feeling generally well. She started experiencing vaginal spotting over the past couple of days. No abdominal pain. She had a couple of days of diarrhea last week, which has resolved. No bladder concerns. Her appetite is good. No cough, SOB or LE edema. She leaves for her condo in [place] the last week in July. Review of Systems: Systemic no weight changes; [...] dysuria; no pain; no abnormal vaginal discharge; + abnormal vaginal bleeding Breast no breast discharge; [...] right side diagnosed CT scan in [place] asymptomatic 04/18/2016 ??? Endometrial cancer (HRC) 05/02/2018 ??? H/O colonoscopy 200704/16/2015 ??? Hyperlipidemia 07/12/2005 takes zocor ??? Hypertension 04/11/2003 takes atenolol cozaar ??? Obesity (HRC) 04/30/2006 LW Onset: [id number] ??? Postmenopausal 04/16/2015 resolved ??? Zoster Past Surgical History: Past Surgical History: Procedure Laterality Date ??? BUNIONECTOMY Current Medications: Michele has a current medication list which includes the following prescription(s): acetaminophen, aspirin ec, cholecalciferol, losartan, metoprolol succinate, metoprolol succinate, and simvastatin. Allergies: Allergies Allergen Reactions ??? Contrast [Iodinated Diagnostic Agents] Anaphylaxis ??? Penicillins Hives ??? Sulfa Antibiotics Hives Social History: Social History Substance Use Topics ??? Smoking status: Never Smoker ??? Smokeless tobacco: Never Used ??? Alcohol use Yes Comment: Alcoholic Drinks/day: 1-2 x per year History Drug Use No Family History: The patient's [...] Negative Family History Physical Exam: BP (!) 153/76 (BP Location: Right Arm, BP Cuff Size: Adult Regular) Pulse 75 Ht 5' 3.25 (1.607 m) Wt 191 lb (86.6 kg) BMI 33.57 kg/m2 General Appearance: healthy and alert, no distress [...] masses. Vaginal cuff appears normal and without lesions, small amount of bleeding noted, appears intact with one suture visible. Bimanual exam reveals intact cuff. Assessment: Michele is a 77 y.o. old woman with a diagnosis of Stage 1A grade 2 endometrial cancer. Vaginal spotting Plan: 1.) EMCA - Return as needed if spotting increases. She will follow q 6 months for 5 years and will transition to the care of her primary WEDDING DECORATOR after initial follow-up here. 2.) Genetic risk factors were assessed and the patient does not meet the qualifications for a referral. 3.) Labs and/or tests ordered include: none. 4.) Health maintenance issues addressed today include routine care with PCP. Thank you for allowing us to participate in the care of your patient. Sincerely, Dee Baker APRN, CNP 07/19/2018, 10:30 AM documented in this encounter Plan of Treatment Not on filedocumented as of this encounter Visit Diagnoses Diagnosis Endometrial cancer (HRC) - Primary Malignant neoplasm of corpus uteri, exce pt isthmus documented in this encounter Care Teams Hot Tamale Man Relationship Specialty Start Date End Date Veronica Heredia DO PCP - General Family Practice 03/22/17 [address] [facility] [place]ANDELL Redman [address] documented as of this encounter
--- OUTSIDE RECORDS SUMMARY | 2022-08-15 14:53 | XMS_ITS | Encounter Summary ---
:1940 Author Organization [facility] Address [address] [place] [address] Care Team Providers Name Role Phone RobleskarinaVeronica DO Primary Care Provider Encounter Details Date Type Department Care Team Description 03/12/2019 Lab Visit [facility] Essential hypertension; [address] [facility] IFG (impaired fasting glucose); Drive Lightheadedness; [place] [address] Hypothyroidism, unspecified type [phone] Social History Tobacco Use Types Packs/Day Years [...] Associated Diagnosis Comme nts BASIC METABOLIC Routine 03/12/2019 7:54 Essential hypertension Results for this PANEL AM CDT procedure are i n the results section. FREE T4 Routine 03/12/2019 7:54 Lightheadedness Results f or this AM CDT procedure are i n the results section. ANTITHYROID Routine 03/12/2019 7:54 Hypothyroidism, Results f or this PEROXIDASE AM CDT unspecified type procedure a re in the results section. TSH, SENSITIVE Routine 03/12/2019 7:54 Lightheadedness Results for this (WITH REFLEX) AM CDT procedure are in the results section. HGB A1C Routine 03/12/2019 7:54 IFG (impaired fasting Res ults for this AM CDT glucose) procedure are i n the results section. documented in this encounter Results (ABNORMAL) Antithyroid Peroxidase (03/12/2019 7:54 AM CDT) Component Value Ref Test Analysis Performed At [facility] gist Range Method Time Signature Thyroperoxidase Ab 505 (H) <=8 03/14/2019 [facility] IU/ml 9:21 AM CDT CENTRAL LAB Specimen Anatomical Collection Method / Collection Time Recei la Time (Source) Location / Volume Laterality Blood Venipuncture / 03/12/2019 7:54 03/12/2019 7:54 Unknown AM CDT AM CDT Veronica Heredia DO LAB_1 Performing Organization Address City/[facility]/ZIP Code Phon e Number [facility] [address] [address] (ABNORMAL) Free T4 (03/12/2019 7:54 AM CDT) P athologist Signature T4, Free 0.6 (L) 0.7 - 1.5 03/13/2019 [facility] ng/dL 3:39 PM CDT LABORATORY Specimen Anatomical Collection Method / Collection Time Recei la Time (Source) Location / Volume Laterality Blood Venipuncture / 03/12/2019 7:54 03/12/2019 7:54 Unknown AM CDT AM CDT Veronica Heredia DO LAB_1 Performing Organization Address City/State/ZIP Code Phon e Number [facility] [address] [place] [address] (ABNORMAL) TSH with Free T4 (if TSH Abnormal) (03/12/2019 7:54 AM CDT) P athologist Signature TSH, Reflex 40.56 (H) 0.30 - 03/13/2019 [facility] 4.50 2:56 PM CDT LABORATORY uIU/mL Specimen Anatomical Collection Method / Collection Time Recei la Time (Source) Location / Volume Laterality Blood Venipuncture / 03/12/2019 7:54 03/12/2019 7:54 Unknown AM CDT AM CDT Narrative [facility] - 03/13/2019 2:56 P M CDT Lab will automatically reflex to Free T4 when TSH results are <0.30 uIU/mL or >4.50 mIU/mL. Veronica Heredia DO LAB_1 Performing Organization Address [facility] Phon e Number [facility] [address] [place] [address] (ABNORMAL) Hemoglobin A1C Glycosylated (03/12/2019 7:54 AM CDT) Analysis Performed At Patho logist Time Signature Hemoglobin A1C 6.0 (H) <=5.6 % 03/12/2019 [facility] 12:53 PM CDT LABORATORY Specimen Anatomical Collection Method / Collection Time Recei la Time (Source) Location / Volume Laterality Blood Venipuncture / 03/12/2019 7:54 03/12/2019 7:54 Unknown AM CDT AM CDT Narrative [facility] - 03/12/2019 12:53 PM CDT For patients not previously diagnosed with diabetes: 5.7-6.4%: Increased risk for diabetes 6.5% and greater: Diagnostic for diabete s For patients diagnosed with diabetes: <8.0%: Goal of therapy for ages 18-75 Clinicians may recommend a higher or low er goal for specific individuals. Veronica Heredia DO LAB_1 Performing Organization Address [facility] Phon e Number [facility] [address] [place] [phone] (ABNORMAL) Basic Metabolic Panel (03/12/2019 7:54 AM CDT) P athologist Signature Sodium 142 136 - 145 03/12/2019 [facility] mmol/L 12:29 PM CDT LABORATORY Potassium 3.9 3.5 - 5.1 03/12/2019 [facility] mmol/L 12:29 PM CDT LABORATORY Chloride 103 98 - 109 03/12/2019 [facility] mmol/L 12:29 PM CDT LABORATORY CO2 30 (H) 20 - 29 03/12/2019 [facility] mmol/L 12:29 PM CDT LABORATORY Anion Gap 9 7 - 16 03/12/2019 [facility] mmol/L 12:29 PM CDT LABORATORY Calcium 9.2 8.4 - 10.4 03/12/2019 [facility] mg/dL 12:29 PM CDT LABORATORY BUN 17 7 - 26 03/12/2019 [facility] mg/dL 12:29 PM CDT LABORATORY Creatinine 0.92 0.55 - 03/12/2019 [facility] 1.02 mg/dL 12:29 PM CDT LABORATORY GFR, Estimated 60 (L) >60 03/12/2019 [facility] mL/min/1.7 12:29 PM CDT LABORATORY 3m2 GFR, Est If >60 >60 03/12/2019 [facility] mL/min/1.7 12:29 PM CDT LABORATORY [place] 3m2 Glucose 96 70 - 100 03/12/2019 [facility] mg/dL 12:29 PM CDT LABORATORY Comment: The [...] Organization Address City/State/ZIP Code Phon e Number [facility] [address] [place] [address] documented in this encounter Visit Diagnoses Diagnosis Essential hypertension (HRC) Unspecified essential hypertension IFG (impaired fasting glucose) Impaired fasting glucose Lightheadedness Dizziness and giddiness Hypothyroidism, unspecified type (HRC) documented in this encounter Care Teams Site Acquisition Specialist Relationship Specialty Start Date End Date Veronica Heredia DO PCP - General Family Practice 03/22/17 [address] [facility] [place]dman [address] documented as of this encounter
--- OUTSIDE RECORDS SUMMARY | 2022-08-15 14:53 | XMS_ITS | Encounter Summary ---
:1940 Author Organization [facility] Address [address] [place] [address] Care Team Providers Name Role Phone FabioinlsonVeronica DO Primary Care Provider Encounter Details Date Type Department Care Team Description 05/21/2018 Lab Visit [facility] Preoperative examination [address] [place] [address] Social History Tobacco Use Types [...] Name Priority Date/Time Associated Diagnosis Comme nts COMPLETE BLOOD Routine 05/21/2018 1:55 PM Preoperative Results for this COUNT-NO DIFF CDT examination procedure are in the results section. documented in this [...] - 05/21/2018 2:04 PM CDT Performed at [facility], [address] [place] [address] ??CLIA number [id number] Veronica Heredia DO LAB_1 Performing Organization Address City/State/ZIP Code Phon e Number PN SOFT [address] [place] [address] documented in this encounter Visit Diagnoses Diagnosis Preoperative examination Preoperative examination, unspecified documented in this encounter Care Teams Mouthpiece Maker Relationship Specialty Start Date End Date Veronica Heredia DO PCP - General Family Practice 03/22/[address] [place] [address] documented as of this encounter
--- OUTSIDE RECORDS SUMMARY | 2022-08-15 14:53 | XMS_ITS | Encounter Summary ---
:1940 Author Organization [facility] Address [address] [place] [address] Care Team Providers Name Role Phone FabionilsonVeronica DO Primary Care Provider Encounter Details Date Type Department Care Team Description 02/05/2019 Lab Visit [facility] Essential hypertension [address] [place] [address] Social History Tobacco Use Types [...] Associated Diagnosis Comme nts BASIC METABOLIC Routine 02/05/2019 9:37 AM Essential Result s for this PANEL CDT hypertension procedure are i n the results section. documented in this encounter Results Basic Metabolic Panel (02/05/2019 9:37 AM CDT) P athologist Signature Sodium 143 136 - 145 02/05/2019 [facility] mmol/L 2:02 PM CDT LABORATORY Potassium 4.2 3.5 - 5.1 02/05/2019 [facility] mmol/L 2:02 PM CDT LABORATORY Chloride 107 98 - 109 02/05/2019 [facility] mmol/L 2:02 PM CDT LABORATORY CO2 28 20 - 29 02/05/2019 [facility] mmol/L 2:02 PM CDT LABORATORY Anion Gap 8 7 - 16 02/05/2019 [facility] mmol/L 2:02 PM CDT LABORATORY Calcium 9.2 8.4 - 10.4 02/05/2019 [facility] mg/dL 2:02 PM CDT LABORATORY BUN 14 7 - 26 02/05/2019 [facility] mg/dL 2:02 PM CDT LABORATORY Creatinine 0.86 0.55 - 02/05/2019 [facility] 1.02 mg/dL 2:02 PM CDT LABORATORY GFR, Estimated >60 >60 02/05/2019 [facility] mL/min/1.7 2:02 PM CDT LABORATORY 3m2 GFR, Est If >60 >60 02/05/2019 [facility] mL/min/1.7 2:02 PM CDT LABORATORY Cymraes 3m2 Glucose 96 70 - 100 02/05/2019 [facility] mg/dL 2:02 PM CDT LABORATORY Specimen Anatomical Collection Method / Collection Time Recei la Time (Source) Location / Volume Laterality Blood Venipuncture / 02/05/2019 9:37 02/05/2019 9:37 Unknown AM CDT AM CDT Veronica Heredia DO LAB_1 Performing Organization Address City/State/ZIP Code Phon e Number [facility] [address] [place] [address] documented in this encounter Visit Diagnoses Diagnosis Essential hypertension (HRC) Unspecified essential hypertension documented in this encounter Care Teams Tumbling Machine Operator Relationship Specialty Start Date End Date Veronica Heredia DO PCP - General Family Practice 03/22/17 [address] [facility] [place] [address] documented as of this encounter
--- OUTSIDE RECORDS SUMMARY | 2022-08-15 14:53 | XMS_ITS | Encounter Summary ---
:1940 Author Organization [facility] Address [address] [place] [address] Care Team Providers Name Role Phone RobleskarinaVeronica DO Primary Care Provider Reason for Visit Reason Comments Post Op Exam Encounter Details Date Type Department Care Team Description 06/27/2018 [facility] Tre Ding Endometr ial cancer Gynecologic Oncology MD (HRC) (Primary Dx) [address] [facility] [address] [place] [address] [place], [place] [phone] (Wo rk) Social History Tobacco Use [...] Reading Time Taken Comments Blood Pressure 153/76 06/27/2018 12:02 PM CDT Pulse 75 06/27/2018 12:02 PM CDT Temperature - - Respiratory Rate - - Oxygen Saturation - - Inhaled Oxygen Concentration - - Weight 87.5 kg (193 lb) 06/27/2018 12:02 PM CDT Height 160.7 cm (5' 3.25) 06/27/2018 12:02 PM CDT Body Mass Index 33.92 06/27/2018 12:02 PM CDT documented in this encounter Progress Notes Tre Ding MD - 06/27/2018 12:00 PM CDT Subjective: Michele Angulo is a 77 y.o. female who presents to the clinic 2 weeks following status post TLH/BSO forendometrial cancer. Eating a regular diet without difficulty. Bowel movements are Normal. The patient is not having any pain. PATH: Tumor ? 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 Histologic Grade: ??FIGO grade 2 ? Tumor Extent ? Myometrial Invasion: ??Present ? Depth of Invasion: ??3 Millimeters (mm) ?Myometrial Thickness: ??15 Millimeters (mm) ?Percentage of Myometrial Invasion: ??20% ? Uterine Serosa Involvement: ??Not identified ? Cervical Stromal Involvement: ??Not identified ? Other Tissue / Organ Involvement: ??Not identified ? Peritoneal Ascitic Fluid: ??Negative for malignancy (normal / ? benign) ? Accessory Findings ? Lymphovascular Invasion: ??Not identified Lymph Nodes ? Regional Lymph Nodes: ??No lymph nodes submitted or found Pathologic Stage Classification (pTNM, AJCC 8th Edition) ? Primary Tumor (pT): ??pT1a ? Regional Lymph Nodes (pN) ? Category (pN): ??pNX FIGO Stage ? FIGO Stage: ??IA Objective: VS: BP (!) 153/76 (BP Location: Right Arm) Pulse 75 Ht 5' 3.25 (1.607 m) Wt 193 lb (87.5 kg) BMI 33.92 kg/m2 General: alert, cooperative, no distress, appears stated age Abdomen: soft, bowel sounds active, non-tender Incision: healing well, no drainage, no erythema, no hernia, no seroma, no swelling, no dehiscence, incision well approximated Assessment: Doing well postoperatively. Operative findings again reviewed. Pathology report discussed. Plan: 1. EMCA - We have discussed the clinical and pathologic findings. I have recommended no adjuvant therapy based on the favor able risk factors and low risk of recurrence. We discussed at length the potential signs and symptoms of recurrence. She will follow q6 months for 5 years and will transition tothe care of her primary STUDIO SET UP WORKER after initial follow-up here. 2. Wound care discussed. 3. Pt is to increase activities as tolerated. 4. Follow up: q6 months with Dee Ding MD documented in this encounter Plan of Treatment Not on filedocumented as of this encounter Visit Diagnoses Diagnosis Endometrial cancer (HRC) - Primary Malignant neoplasm of corpus uteri, exce pt isthmus documented in this encounter Care Teams Spring Coiling Machine Setter Relationship Specialty Start Date End Date Veronica Heredia DO PCP - General Family Practice 03/22/17 [address] [facility] [place] [address] documented as of this encounter
--- OUTSIDE RECORDS SUMMARY | 2022-08-15 14:53 | XMS_ITS | Encounter Summary ---
:1940 Author Organization [facility] Address [address] [place] [address] Care Team Providers Name Role Phone Veronica Heredia DO Primary Care Provider Reason for Visit Reason Comments Refill simvastatin (ZOCOR) 20 MG ta blet [Pharmacy Med Name: SIMVASTATIN 20 MG TABLET] Encounter Details Date Type Department Care Team Description 05/27/2018 Refill [facility] Veronica Heredia, DO Refill (simvastatin [address] [facility] [address] [facility] (ZOCOR) [address] [Pharmacy Med Name: [place] [address] [place], [place] SIMVASTATIN 20 MG [phone] TABLET]) [phone] (Wo rk) Social History Tobacco Use Types [...] documented as of this encounter Nursing Notes Do Lyman RN - 05/27/2018 11:47 AM CDT Renewed medication per medication refill protocol. Requested Prescriptions Pending Prescriptions Disp Refills simvastatin (ZOCOR) 20 MG tablet [Pharmacy Med Name: SIMVASTATIN 20 MG TABLET] 90 Tablet 3 Sig: TAKE ONE TABLET BY MOUTH DAILY Interface, Out [employer] Query - 05/27/2018 11:27 AM CDT simvastatin (ZOCOR) 20 MG tablet [Pharmacy Med Name: SIMVASTATIN 20 MG TABLET] Medication started: 07/19/2012 Last ordered by VERONICA HEREDIA: 04/19/2017 (403 days ago) QTY: 90, Refills: 3, Sig: take 1 tab by mouth daily. (changed but equivalent) -> Refill x 12 months, qty: 90, refills: 3 (until due for an office visit) Last qualifying visit: 05/21/2018 (with VERONICA HEREDIA) Next scheduled visit: None Powered by [employer], Reference: [id number], 05/27/2018 11:27:06 AM CDT, Pool: YURY LARRY REFILL ([id number]) documented in this encounter Plan of Treatment Not on filedocumented as of this encounter Visit Diagnoses Diagnosis Hyperlipidemia, unspecified hyperlipidem ia type (HRC) documented in this encounter Care Teams Sewing Machine Assembler Relationship Specialty Start Date End Date Veronica Heredia, PCP - General Family Practice 03/22/17 [address] [facility] [place] [address] documented as of this encounter
--- OUTSIDE RECORDS SUMMARY | 2022-08-15 14:53 | XMS_ITS | Encounter Summary ---
:1940 Author Organization [facility] Address [address] [place] [address] Care Team Providers Name Role Phone Veronica Heredia DO Primary Care Provider Reason for Visit Procedure/Equipment (Routine) - Incomplete Specialty Diagnoses / Procedures Referred By Contact Refer red To Contact Diagnoses Visit for screening mammogram Veronica Heredia DO Procedures MM Mammogram Screening Bilat W CAD [address] [facility] [address] [place] [address] Referral ID Status Reason Start Date Expiration Date Visits V isits Requested Authorized [id number] Incomplete 07/04/2018 10/03/2019 1 1 Encounter Details Date Type Department Care Team Description 07/17/2018 Imaging [facility] Veronica Heredia, Visit for screening [address] [facility] [address] [facility] mammogram [address] [place] [address] [place] [phone] (Wo rk) Social History Tobacco Use Types [...] Name Priority Date/Time Associated Diagnosis Comme nts MM MAMMOGRAM Routine 07/17/2018 1:05 PM Visit for screening Re sults for this SCREENING BILAT W CDT mammogram procedure are in CAD the results section. documented in this encounter Results MM Mammogram Screening Bilat W CAD (07/17/2018 1:05 PM CDT) Anatomical Region Laterality Modality Breast Bilateral Mammography Specimen (Source) Anatomical Location Collection Method / Collectio n Time Received Time / Laterality Volume Impressions 07/17/2018 3:49 PM CDT : ACR BI-RADS Category 1: Negative RECOMMENDATION: Follow Up Imaging in 12 months - Bilateral The results and recommendations of this examination will be communicated to the patient. Narrative 07/17/2018 3:49 PM CDT MM MAMMOGRAM SCREENING BILAT W CAD performed on 07/17/18 Compared to: 05/18/2017 MM Mammogram Scr eening Bilat W CAD, 07/28/2015 MM Mammogram Screening Bilat W Nacho W CAD, and 07/27/2014 MM Mammogram Screening Bilat W CAD FINDINGS: Bilateral screening mammogram was performed with the assistance of Computer-Aided Detection. The breasts have scattered areas of fibroglandular density. There is no radiographic evidence of mal ignancy. ?? Veronica Heredia DO RAD KERMIT documented in this encounter Visit Diagnoses Diagnosis Visit for screening mammogram Other screening mammogram documented in this encounter Care Teams Baby Formula Mixer Relationship Specialty Start Date End Date Veronica Heredia DO PCP - General Family Practice 03/22/17 [address] [facility] [address] [place] [address] documented as of this encounter
--- OUTSIDE RECORDS SUMMARY | 2022-08-15 14:53 | XMS_ITS | Encounter Summary ---
:1940 Author Organization [facility] Address [address], [place] [address] Care Team Providers Name Role Phone RoblesVeronica collins Benito DO Primary Care Provider Reason for Visit Reason Comments BLOOD PRESSURE CHECK Encounter Details Date Type Department Care Team Description 02/12/2019 [facility] Visit [facility], Ja Mendoza Essential hypertension Medicine (Primary Dx) [address] [place] [address] Social History Tobacco Use Types [...] Sign Reading Time Taken Comments Blood Pressure 138/88 02/12/2019 8:30 AM CDT Pulse 80 02/12/2019 8:30 AM CDT Temperature - - Respiratory Rate - - Oxygen Saturation - - Inhaled Oxygen Concentration - - Weight - - Height - - Body Mass Index - - documented in this encounter Progress Notes Ernestina Murphy LPN - 02/12/2019 9:00 AM CDT Pt came in for nurse blood pressure check manual bp 138/88 pulse 80. Routing to pcp as an fyi. documented in this encounter Plan of Treatment Not on filedocumented as of this encounter Visit Diagnoses Diagnosis Essential hypertension (HRC) - Primary Unspecified essential hypertension documented in this encounter Care Teams Airframe And Powerplant Technician Relationship Specialty Start Date End Date Veronica Heredia DO PCP - General Family Practice 03/22/17 [address] [facility] [place] [address] documented as of this encounter
--- OUTSIDE RECORDS SUMMARY | 2022-08-15 14:53 | XMS_ITS | Encounter Summary ---
:1940 [facility] Address [address] [place] [address] Care Team Providers Name Role Phone Veronica Heredia DO Primary Care Provider Reason for Visit Reason Comments Refill metoprolol succinate (TOPROL XL) 25 MG 24 hour release tablet [Pharmacy Med Name: METOPROLOL SUCC ER 25 MG TAB] Encounter Details Date Type Department Care Team Description 06/15/2018 Refill [facility] Veronica Heredia, DO Refill (metoprolol [address] [facility] [address] [facility] succinate (TOPROL XL) [address] MG 24 [place] [address] [place], [place] tablet [Pharmacy Med [phone] [address] Name: METOPROLOL SUCC ER [phone] (Wo rk) 25 MG TAB]) Social History [...] documented as of this encounter Nursing Notes Yaz Spencer RN - 06/19/2018 9:40 AM CDT Renewed medication per medication refill protocol. Requested Prescriptions Signed Prescriptions Disp Refills ??? metoprolol succinate (TOPROL XL) 25 MG 24 hour release tablet 90 Tablet 3 Sig: Take 1 Tab by mouth daily. Take with Toprol XL 50 mg tab to equal 75 mg. Authorizing Provider: VERONICA HEREDIA Ordering User: YAZ SPENCER Interface, Out Surescripts Prov Query - 06/15/2018 1:20 AM CDT metoprolol succinate (TOPROL XL) 25 MG 24 hour release tablet [Pharmacy Med Name: METOPROLOL SUCC ER25 MG TAB] Medication started: 07/09/2017 Last ordered by VERONICA HEREDIA: 08/22/2017 (297 days ago) QTY: 90, Refills: 3, Sig: take 1 tab by mouth daily. take with toprol xl 50 mg tab to equal 75 mg. (changed) -> The requested strength (25 mg extended release oral tablet) was last ordered on 08/22/2017. The patient is taking 50 mg extended release oral tablet as of 03/22/2018. -> The medication is active at more than one strength (25 mg on 08/22/2017, 50 mg on 03/22/2018). -> This medication may not have been authorized by the requested provider. -> Due to an unreadable sig, manually ensure the patient is due for a renewal. -> The requested sig has changed from the last order. -> Refill x 12 months (until due for an office visit) -> Calculate quantity and refills manually. They could not be estimated due to missing or unreadable information. Last qualifying visit: 05/21/2018 (with VERONICA HEREDIA) Next scheduled visit: None SBP: 158 mm Hg on 03/14/2018 DBP: 90 mm Hg on 03/14/2018 Powered by [employer], Reference: [id number], 06/15/2018 1:20:09 AM CDT, Pool: YURY RICHARDS ([id number]) documented in this encounter Plan of Treatment Not on filedocumented as of this encounter Visit Diagnoses Diagnosis Essential hypertension (HRC) Unspecified essential hypertension documented in this encounter Care Teams Stile Ripsaw Operator Relationship Specialty Start Date End Date Veronica Heredia DO PCP - General Family Practice 03/22/17 [address] [facility] [place] [address] documented as of this encounter
--- OUTSIDE RECORDS SUMMARY | 2022-08-15 14:53 | XMS_ITS | Encounter Summary ---
:1940 Author Organization [facility] Address [address] [place] [address] Care Team Providers Name Role Phone Veronica Heredia DO Primary Care Provider Reason for Visit Reason Comments Refill losartan (COZAAR) 100 MG tab let [Pharmacy Med Name: LOSARTAN POTASSIUM 100 MG TAB] Encounter Details Date Type Department Care Team Description 03/02/2019 Refill [facility] Veronica Heredia, DO Refill (losartan [address] [facility] [address] [facility] (COZAAR) [address] [Pharmacy Med Name: [place] [address] [place], [place] LOSARTAN POTASSIUM 100 [address] MG TAB]) [phone] (Wo rk) Social History Tobacco Use Types [...] encounter Nursing Notes Yaz Spencer RN - 03/05/2019 9:00 AM CDT Prescription refill request was declined-- Please see Reason for Refusal Comment below. Requested Prescriptions Refused Prescriptions Disp Refills ??? losartan (COZAAR) 100 MG tablet [Pharmacy Med Name: LOSARTAN POTASSIUM 100 MG TAB] 90 Tablet 3 Sig: TAKE 1 TABLET BY MOUTH EVERY DAY Refused By: YAZ SPENCER Reason for Refusal: Refill Not Appropriate Interface, Out Surescripts Prov Query - 03/02/2019 2:23 AM CDT losartan (COZAAR) 100 MG tablet [Pharmacy Med Name: LOSARTAN POTASSIUM 100 MG TAB] Medication started: 04/15/2014 Last ordered by VERONICA HEREDIA: 02/28/2018 (367 days ago) QTY: 90, Refills: 3, Sig: take 1 tab by mouth daily. (changed but equivalent) -> This medication was discontinued on 02/05/2019 by VERONICA HEREDIA. -> Refill x 12 months, qty: 90, refills: 3 (until due for an office visit, Cr check and K check) Last qualifying visit: 02/05/2019 (with VERONICA HEREDIA) Next scheduled visit: None SBP: 138 mm Hg on 02/12/2019 DBP: 88 mm Hg on 02/12/2019 Cr: 0.86 mg/dL on 02/05/2019 K: 4.2 mEq/L on 02/05/2019 Powered by [employer], Reference: [id number], 03/02/2019 2:23:42 AM CDT, Pool: YURY JUAREZ REFILL ([id number]) documented in this encounter Plan of Treatment Not on filedocumented as of this encounter Visit Diagnoses Not on filedocumented in this encounter Care Teams Transaction Coordinator Relationship Specialty Start Date End Date Veronica Heredia DO PCP - General Family Practice 03/22/17 [address] [facility] [place] [address] documented as of this encounter
--- OUTSIDE RECORDS SUMMARY | 2022-08-15 14:53 | XMS_ITS | Encounter Summary ---
:1940 Author Organization [facility] Address [address] [place] [address] Care Team Providers Name Role Phone Veronica Heredia DO Primary Care Provider Reason for Visit Auth/Cert Specialty Diagnoses / Procedures Referred By Contact Refer red To Contact Diagnoses Endometrial cancer (HRC) Referral ID Status Reason Start Date Expiration Date Visits Requ ested Visits Authorized [id number] 1 1 Encounter Details Date Type Department Care Team Description 06/12/2018 Anesthesia Event [employer] Operating Mindy Quarles MD [address] [place], [place] [id number] Anuja Campbell APRN, CRNA [address] [place] [address] [address] [facility] [place] [address] Anesthesia Record Procedure Summary Procedure Name Responsible Anesthesia Start Anesthesia Stop Anesthesiologist Time Time Laparascopic total Tone Quarles MD 06/12/18 0900 06/12/18 1132 hysterectomy, bilateral salpingoopherectomy, cystoscopy Events Date Time Event Comment 06/12/2018 0847 0900 An Start 0900 An Start Data 0905 / Present 0905 An Induction 0906 An Intubation 0919 / Present 0945 Quick Note Pt hypertensive with insufflation, asked surgeon if he could decreas e amount of insufflation, decreased from 14 to 12 wi th good results 1011 / Present 1047 Quick Note Decreased insuff lation 1052 Quick Note reinsufflated 1111 MD/DO Present 1124 An Extubation Purposeful movem ent with spontaneous respirations and adequate air exchange. Suctioned and ETT removed. Transfe rred with oxygen to recovery. 1124 an stop data 1132 An Stop Care transferred . 1132 Care Handoff Note I discussed wi th the receiving nurse and we: 1) Identified the p atient, figueroa family member(s) or patient surrogat e 2) Identified the responsible practitioner 3) Reviewed the pertinent medical history 4) Discu ssed the surgical/procedure course 5) Reviewed intr a-op anesthesia management and issues during an esthesia 6) Set expectations for the post-procedu re period 7) Allowed opportunity for questions an d acknowledgement of understanding of report Electr onically signed by Anuja Lopez APRN, IJEOMA Name Total midazolam injection 2 mg/2 mL (VERSED) 2 mg fentaNYL injection (SUBLIMAZE) 250 mcg HYDROmorphone injection 1 mg/mL (DILAUDID) 0.4 mg lidocaine 1% PF injection (XYLOCAINE) 50 mg propofol 10 mg/mL IV (DIPRIVAN) 200 mg succinylcholine injection (QUELICIN) 130 mg vecuronium bromide injection (NORCURON) 8 mg glycopyrrolate 0.2 mg/mL injection (ROBINUL) 0.2 mg ondansetron injection (ZOFRAN) 4 mg dexamethasone 4 mg/mL injection (DECADRON) 4 mg phenylephrine 0.4 mg in NaCl 0.9% (PF) syringe 160 mcg dexmedetomidine (PRECEDEX) 200 mcg in sodium chloride 0.9 % 50 mL infusion 61.64 mcg clindamycin in dextrose 5% (CLEOCIN) IVPB 900 mg 900 m g sugammadex injection 100mg/mL (BRIDION) 200 mg lactated ringers infusion 1,200 mL Agents Name O2 Air Sevoflurane () Identified Agent Name Blood No blood administrations on file. Lines, Drains, and Airways Type Details Placement Removal Peripheral IV Placement Date: 06/12/18754 by 06/13/18905 b y 06/12/18; Placement Maricruz Mancuso RN Bressler, Anne M, RN Time: 075; Pre-existing: No; Inserted by?: RN; Size (Gauge): 18 G; Orientation: Right; Site Prep: ChloraPrep; Local Anesthetic: None; Insertion attempts: 1; Patient Tolerance: Tolerated well; Removal Date: 06/13/18; Removal Time: 905 ETT Placement Date: 06/12/18 09 by 06/12/[address] [place], 06/12/18; Placement Anuja Lopez Krista L, AP RN, SHUTTLE VAN DRIVER Time: 905; Placed IJEOMA ROQUE By: IJEOMA; Induction Type: Pre-O2, IV; Masking: Easy; ETT Type: ETT; Orientation: Right; Size (mm): 7.0; Depth Secured (cm): 23 cm; Cuffed: Cuffed; Intubation Method: DL; Cormack_Lehane Glottic Grade: Grade 1; Glottic View: Cords Open, Cords Clear; Blade: MAC; Blade Size: 3; Insertion attempts: 1; Difficulty: Atraumatic; Adjunct Equipment: Stylet; Placement Verification: BBSE, Positive EtCO2, auscultation; Teeth and Lips Unchanged: Unchanged; Removal Date: 06/12/18; Removal Time: 1124 NG/OG Tube Placement Date: 06/12/18914 by 06/12/18 1725 b y 06/12/18; Placement Anuja Lopez Lawrence, He idi, RN Time: 914; IJEOMA ROQUE Pre-existing: No; Performed By: IJEOMA; Tube Type: Orogastric; Tube Size (Fr.): 16 Fr.; CM Wilmer Where Tube Exits Patient: 70 cm; Tube Location: Mouth; Removal Date: 06/12/18; Removal Time: 172; Removal Reason: Other (Comment) (not noted in extended stay) Indwelling Urethral 06/12/18; 0941; No; 06/12/18 0941 by [id number] Ding; Ernestina Gilbert Lawrence, Hei di, RN Indwelling Catheter; RN 16 Fr.; 1; Other (Comment) (not noted in extended stay) Incision/Surgical Site 06/12/18; 1055; No; 06/12/18 1055 by 06/06 01/20 1028 by Lda, Abdomen (3 lap Celso, Franca Romero RN Discontinue sites); 06/27/18; 1028 Incision/Surgical Site 06/12/18; 1056; No; 06/12/18 1056 by 06/06 01/20 1028 by Lda, Vagina; 06/27/18; Franca Houston RN Discontinue 1028 documented in this encounter Social History Tobacco Use Types Packs/Day Years [...] on file documented as of this encounter Miscellaneous Notes Anesthesia Postprocedure Evaluation - Tone Quarles MD - 06/12/2018 12:36 PM CDT [facility] Anesthesia Post-op Note Patient: Michele Angulo Post-Op Diagnosis: Endometrial cancer (hrc) Procedure Performed: Procedure(s): Laparascopic total hysterectomy, bilateral salpingoopherectomy, cystoscopy Anesthesia Type: General Post-op vital signs: BP (!) 163/91 Pulse 72 Temp 97.2 ??F (36.2 ??C) (Temporal Artery) Resp 14 Ht 5' 3.25 Wt 88.9 kg (196 lb) SpO2 (!) 91% BMI 34.45 kg/m2 Pain Score: Presence Of Pain: denies Preferred Pain Scale: number (Numeric Rating Pain Scale) Pain Rating (0-10): Rest: 1 Pain Rating (0-10): Activity: 0 Post-op assessment: No anesthesia complication. Patient location: PACU Airway Status: Patent Cardiovascular function: Satisfactory Hydration status: Satisfactory PONV: None Level of Consciousness: Awake Fully Participates Postop Assessment: Patient tolerated procedure well. Electronically signed by: Tone Quarles MD 06/12/2018 12:36 PM Anesthesia Preprocedure Evaluation - Michele Irwin MD - 06/12/2018 8:24 AM CDT [facility] Anesthesia Pre-op Evaluation Procedure: Procedure(s): Laparascopic removal of bilateral (both) Uterus fallopian tubes and ovaries and cervix, possible open, possible cancer operation HPI: 77 y.o. old female with Endometrial cancer (hrc) NPO Status: Last Fluid Intake Time: 0545 Last Fluid Intake Date: 06/12/18 Last Food Intake Date: 06/11/18 Last Food Intake Time: 190 Allergies Allergen Reactions ??? Contrast [Iodinated Diagnostic Agents] Anaphylaxis ??? Penicillins Hives ??? Sulfa Antibiotics Hives Past Medical History: Diagnosis Date ??? Aspirin long-term use 04/16/2015 ASA therapy 75-162 mg/day is recommended for primary CVD prevention because patient -Is female 57 years who have at least one additional major risk factor such as: -HTN -Dyslipdemia ??? Calculus of kidney right side diagnosed CT scan in [place] asymptomatic 04/18/2016 ??? Endometrial cancer (HRC) 05/02/2018 ??? H/O colonoscopy 2007 due 201704/16/2015 ??? Hyperlipidemia 07/12/2005 takes zocor ??? Hypertension 04/11/2003 takes atenolol cozaar ??? Obesity (HRC) 04/30/2006 LW Onset: [id number] ??? Postmenopausal 04/16/2015 resolved ??? Zoster Patient Active Problem List Diagnosis ??? Essential hypertension (HRC) ??? Hyperlipidemia (HRC) ??? Esophageal reflux ??? BMI 34.0-34.9,adult ??? Calculus of kidney ??? Endometrial cancer (HRC) Past Surgical History: Procedure Laterality Date ??? BUNIONECTOMY Outpatient Prescriptions Marked as Taking for the 06/12/18 encounter (Hospital Encounter) Medication Sig Dispense Refill ??? losartan (COZAAR) 100 MG tablet TAKE [...] TABLET BY MOUTH DAILY 90 Tablet 3 Current Facility-Administered Medications Medication Dose Route Frequency ??? clindamycin in dextrose 5% (CLEOCIN) IVPB 900 mg 900 mg Intravenous Once ??? fentaNYL (SUBLIMAZE) injection 25-100 mcg 25-100 mcg Intravenous Q5MIN PRN ??? fentaNYL (SUBLIMAZE) injection 25-50 mcg 25-50 mcg Intravenous Q5MIN PRN ??? gentamicin 340 mg in sodium chloride 0.9 % 100 mL IVPB 5 mg/kg (Adjusted) Intravenous Once ??? HYDROmorphone injectable 0.2-0.4 mg 0.2-0.4 mg Intravenous Q10MIN PRN ??? lactated ringers infusion 25 mL/hr Intravenous Continuous ??? meperidine (DEMEROL) injection 12.5 mg 12.5 mg Intravenous Q5MIN PRN ??? midazolam (VERSED) injection 1-2 mg 1-2 mg Intravenous Q5MIN PRN ??? morphine injectable 1-2 mg 1-2 mg Intravenous Q5MIN PRN ??? ondansetron (ZOFRAN) injection 4 mg 4 mg Intravenous ONCE PRN ??? ondansetron (ZOFRAN) injection 4 mg 4 mg Intravenous Q4H PRN Labs: Lab Results Component Value Date/Time SODIUM 144 05/02/2018 03:25 PM K 4.4 05/02/2018 03:25 PM CHLORIDE 108 05/02/2018 03:25 PM BUN 18 05/02/2018 03:25 PM CREATININE 0.92 05/02/2018 03:25 PM GLUCOSE 104 (H) 05/02/2018 03:25 PM Lab Results Component Value Date/Time WBC 6.0 05/21/2018 01:55 PM HGB 13.3 05/21/2018 01:55 PM HCT 41.0 05/21/2018 01:55 PM PLTS 188 05/21/2018 01:55 PM INR (no units) Date Value 08/04/2017 1.0 No results found for: HCGQUANT Urine : Urine : Blood Bank: No results found for: ABORH, ABSCR EKG: No results found for this or any previous visit. Physical Exam: BP (!) 151/99 Pulse 96 Temp (!) 96.8 ??F (36 ??C) (Temporal Artery) Resp 18 Ht 5' 3.25 Wt88.9 kg (196 lb) SpO2 95% BMI 34.45 kg/m2 Assessment/Plan: Review of Systems Patient has GERD. GERD controlled with medication. Patient is not a smoker. The patient denies alcohol use. Patient denies any recent URI. History of PONV: No. History of motion sickness: No. Patient denies any personal or family history of anesthesia complications (PONV). Exam Mental Status: Alert and oriented. Mallampati score: I (One). Mouth opening: Normal Thyromental Distance: > 3 finger breadths and Normal Neck Extension: Full Neck Circumference > 40 cm?: No Current airway assessment:Normal Dentition: Normal. Cardiac Exam: Regular rate and rhythm. Respiratory Exam: Breath sounds clear to auscultation Assessment ASA Status: 2 . Plan Anesthesia type: General and ETT Induction: PropofolMaintenance: Inhalation and Precedex Postoperative pain management (PONV): Plan for postoperative opioid use PONV Risk Score Peds:0 PONV Risk Score Adult: 3 PONV Prophylaxis (planned):Ondansetron Anesthetic plan, risks, benefits and alternatives discussed with: Patient H&P Reviewed and Patient examined, no change observed IV access Antibiotics per surgery Electronically signed by: Michele Irwin MD 06/12/2018 8:24 AM documented in this encounter Plan of Treatment Not on filedocumented as of this encounter Visit Diagnoses Not on filedocumented in this encounter Administered Medications Inactive Administered Medications - up to 3 most recent administrations Medication Order MAR Action Action Date Dose Rate Site clindamycin in dextrose 5% Given 06/12/2018 9:15 AM CDT 900 mg (CLEOCIN) IVPB 900 mg 900 mg, Intravenous, Administer over 30 Minutes, ONCE, On Sun06/12/18 at 1000, For 1 dose, Give within 60 minutes prior to incision; then re-dose 900 mg IV every 6 hours until incision closed., Pre-op dexamethasone (aka DECADRON) injection Given 06/12/2018 9:05 AM CDT 4 mg Intravenous, Starting on Sun06/12/18 at 0905 dexmedetomidine (PRECEDEX) Started 06/12/2018 9:15 AM CDT 0.4 mcg/kg/hr 8.89 mL/hr 200 mcg in sodium chloride 0.9 % 50 mL infusion 200 mcg, Starting on Sun06/12/18 at 0915 fentaNYL (SUBLIMAZE) injection Given 06/12/2018 10:02 AM CDT 50 mcg Intravenous, Starting on Sun06/12/18 at 0905, Until Sun06/12/18 at 1132 Given 06/12/2018 9:45 AM CDT 50 mcg Given 06/12/2018 9:05 AM CDT 150 mcg glycopyrrolate (ROBINUL) injection Given 06/12/2018 9:29 AM CDT 0.2 mg Intravenous, Starting on Sun06/12/18 at 0929, Until Sun06/12/18 at 1132 HYDROmorphone (DILAUDID) injection Given 06/12/2018 10:38 AM CDT 0.2 mg Starting on Sun06/12/18 at 1014, Until Sun06/12/18 at 1132 Given 06/12/2018 10:14 AM CDT 0.2 mg lactated ringers infusion Started 06/12/2018 10:17 AM CDT 25 mL/hr, Intravenous, CONTINUOUS, Starting on Sun06/12/18 at 0800, Administer on all preop surgery patients, ages 12 and older, unless specified differently in the Protocol for Preop Initiation of IV fluids Order Set., Pre-op Started 06/12/2018 8:00 AM CDT 25 mL/hr 25 mL/hr Right Hand lidocaine (XYLOCAINE) 1 % injection Given 06/12/2018 9:05 AM CDT 50 mg Intravenous, Starting on Sun06/12/18 at 0905 midazolam (VERSED) injection Given 06/12/2018 9:02 AM CDT 2 mg Intravenous, Starting on Sun06/12/18 at 0902, Until Sun06/12/18 at 1132 ondansetron (ZOFRAN) injection Given 06/12/2018 10:56 AM CDT 4 mg Intravenous, Starting on Sun06/12/18 at 1056, Until Sun06/12/18 at 1132 phenylephrine 40 mcg/mL in NaCl 0.9% (PF) Given 06/12/2018 9:36 AM CDT 80 mcg syringe Intravenous, Starting on Sun06/12/18 at 0914, Until Sun06/12/18 at 1132 Given 06/12/2018 9:14 AM CDT 80 mcg propofol (DIPRIVAN) 10 MG/1ML injection Given 06/12/2018 9:05 AM CDT 200 mg Intravenous, Starting on Sun06/12/18 at 0905, Until Sun06/12/18 at 1132 succinylcholine (QUELICIN) injection Given 06/12/2018 9:05 AM CDT 130 mg Intravenous, Starting on Sun06/12/18 at 0905, Until Sun06/12/18 at 1132 sugammadex (BRIDION) injection Given 06/12/2018 11:01 AM CDT 200 mg Starting on Sun06/12/18 at 1101, Until Sun06/12/18 at 1132 vecuronium (NORCURON) injection Given 06/12/2018 10:20 AM CDT 2 mg Intravenous, Starting on Sun06/12/18 at 0914, Until Sun06/12/18 at 1132 Given 06/12/2018 9:14 AM CDT 6 mg documented in this encounter Care Teams Electrical Engineering Teacher Relationship Specialty Start Date End Date Veronica Heredia DO PCP - General Family Practice 03/22/17 [address] [facility] [place] [address] documented as of this encounter
--- OUTSIDE RECORDS SUMMARY | 2022-08-15 14:53 | XMS_ITS | Encounter Summary ---
:1940 Author Organization [facility] Address [address] [place] [address] Care Team Providers Name Role Phone FabionilsonVeronica DO Primary Care Provider Reason for Visit Reason Comments QUESTIONS, GENERAL Encounter Details Date Type Department Care Team Description 07/25/2018 [facility]phone [facility] Dee Baker, QUESTION S, GENERAL Gynecologic Oncology CARPET CLEANER, DATA KEYER [address] [place] [id number] [phone] Social History Tobacco Use Types Packs/Day Years [...] documented as of this encounter Nursing Notes Yuli Mcgovern - 07/25/2018 10:49 AM CDT Spoke to Michele, having some concerns with some diarrhea for few days that had resolved then came backyesterday. Patient took imodium 07/25/18 feeling better, so will continue to take if gets worse told her to call back but might be a bug or something she ate. Patient grateful for the call and will callback if needed. documented in this encounter Plan of Treatment Not on filedocumented as of this encounter Visit Diagnoses Not on filedocumented in this encounter Care Teams Inside Tester Relationship Specialty Start Date End Date Veronica Heredia DO PCP - General Family Practice 03/22/17 [address] [facility] [place] [id number] documented as of this encounter
--- OUTSIDE RECORDS SUMMARY | 2022-08-15 14:53 | XMS_ITS | Encounter Summary ---
:1940 Author Organization [facility] Address [address], [place] [address] Care Team Providers Name Role Phone FabionilsonVeronica DO Primary Care Provider Reason for Visit Reason Comments Follow-up Endometrial Cancer Encounter Details Date Type Department Care Team Description 03/04/2019 [facility] Toljohn, Dee L, Endometr ial cancer Gynecologic Oncology PEER FINANCIAL COUNSELOR, MAGALYS (HRC) (Primary Dx) [address] [place] [address] [phone] Social History Tobacco Use Types Packs/Day Years [...] Sign Reading Time Taken Comments Blood Pressure 143/60 03/04/2019 8:47 AM CDT Pulse 74 03/04/2019 8:47 AM CDT Temperature - - Respiratory Rate - - Oxygen Saturation - - Inhaled Oxygen Concentration - - Weight 92.9 kg (204 lb 11.2 oz) 03/04/2019 8:47 AM CDT Height 160.7 cm (5' 3.25) 03/04/2019 8:47 AM CDT Body Mass Index 35.97 03/04/2019 8:47 AM CDT documented in this encounter Progress Notes Dee Baker, JUDE, MAGALYS - 03/04/2019 9:00 AM CDT Follow Up Notes on Referred Patient RE: Michele Angulo : 1940 HEAVEN: 03/04/2019 Michele Angulo is a 78 y.o. old woman with a diagnosis of Stage 1A grade 2 endometrial cancer. She is here today for vaginal spotting. ?? 06/12/18: Total laparoscopic hysterectomy, bilateral salpingo-oophorectomy, cystoscopy ?? Current status: Pt. Is feeling generally well. She denies vaginal bleeding or discharge. No abdominal or pelvic pain. Normal bowel and bladder habits. Her appetite is good. No cough, SOB or LE edema. She is back from [place] and plans to return in July. She walks 1 1/2-2 miles daily and[facility] Review of Systems: Systemic no weight changes; [...] kidney right side diagnosed CT scan in [place] asymptomatic 04/18/2016 ??? Endometrial cancer (HRC) 05/02/2018 ??? H/O colonoscopy 200704/16/2015 ??? Hyperlipidemia 07/12/2005 takes zocor ??? Hypertension 04/11/2003 takes atenolol cozaar ??? Obesity (HRC) 04/30/2006 LW Onset: [id number] ??? Postmenopausal 04/16/2015 resolved ??? Zoster Past Surgical History: Past Surgical History: Procedure Laterality Date ??? BUNIONECTOMY ??? HYSTERECTOMY total with BSO ??? SALPINGO-OOPHORECTOMY Bilateral Current Medications: Michele has a current medication list which includes the following prescription(s): acetaminophen, cholecalciferol, losartan potassium-hctz, metoprolol succinate, metoprolol succinate, and [...] Negative Family History Physical Exam: BP (!) 143/60 (BP Location: Right Arm, BP Cuff Size: Adult Large) Pulse 74 Ht 5' 3.25 (1.607 m) Wt 204 lb 11.2 oz (92.9 kg) BMI 35.97 kg/m?? General Appearance: healthy and alert, no [...] 1A grade 2 endometrial cancer. ? Plan: 1.) EMCA - She will follow q 6 months for 5 years and will transition to the care of her primary AUTOMOBILE LOCATOR after initial follow-up here. 2.) Genetic risk factors were assessed and the patient does not meet the qualifications for a referral. ?? 3.) Labs and/or tests ordered include: none. 4.) Health maintenance issues addressed today include routine care with PCP. Thank you for allowing us to participate in the care of your patient. Sincerely, Dee Baker APRN, CNP 03/04/2019, 9:21 AM Vanessa Mak LPN - 03/04/2019 9:00 AM CDT Victim Advocate declined. documented in this encounter Plan of Treatment Not on filedocumented as of this encounter Visit Diagnoses Diagnosis Endometrial cancer (HRC) - Primary Malignant neoplasm of corpus uteri, exce pt isthmus documented in this encounter Care Teams Inspector Radar And Electronics Relationship Specialty Start Date End Date Veronica Heredia DO PCP - General Family Practice 03/22/17 [address] [facility] [address] [place], [place] [id number] documented as of this encounter
--- OUTSIDE RECORDS SUMMARY | 2022-08-15 14:53 | XMS_ITS | Encounter Summary ---
:1940 Author Organization [facility] Address [address] [place] [address] Care Team Providers Name Role Phone Veronica Heredia DO Primary Care Provider Reason for Visit Reason Comments LIGHTHEADEDNESS Encounter Details Date Type Department Care Team Description 03/11/2019 Nurse Triage [facility] Veronica Heredia, [facility] [address] [facility] [address] [place] [address] [place] [address] [phone] (Wo rk) Social History Tobacco Use Types [...] encounter Nursing Notes Priscilla Mas RN - 03/12/2019 11:54 AM CDT Informed Pt of notes below, appt scheduled. Pt states that she is starting to feel better today. Future Appointments Date Time Provider Department Center 03/13/2019 1:30 PM Veronica Heredia, DO [facility] Veronica Heredia DO - 03/12/2019 9:48 AM CDT She should be seen to discuss her symptoms, have a BP check and review her labs. It is possible thatelio is having orthostatic hypotension since adding the HCTZ. Priscilla Mas RN - 03/11/2019 4:29 PM CDT Clinician Action: Input needed regarding ongoing symptoms Clinician Next Step: Patient IS expecting a call back from care team Specific Request(s): 1. Pt will get BMP done on 03/12, call with plan once results are back. Pt reports she was started on Hyzaar around February 05 and has been experiencing lightheadedness. Shecannot say exactly when this started, but was after the HCTZ was added to her medications. If she sits and rest it subsides. She also makes slow positional changes to reduce symptoms. Has been drinking water to stay hydrated. Vision can get fuzzy at times, but does not always correlate with the lightheadedness. Denies chest pain, SOB, heart r/r changes, n/t/w one side of body or blood loss. 02/05/19 OV HTN, not well controlled, plan to add hydrochlorothiazide 12.5 if the lactose and kidney function will tolerate this position. Continue with Toprol XL 75 mg daily. Continue with losartan 100 mg daily. Plan for recheck of her BMP in 4 weeks after adding hydrochlorothiazide. Reason for Disposition ??? Taking a medicine that could cause dizziness (e.g., blood pressure medications, diuretics) Protocols used: DIZZINESS - [id number] Recommended that Pt come to lab to do BMP & A1C to check electrolytes as noted in last OV. Will send not to PCP to review for next steps after labs are resulted. Pt will call with any new/worseningsymptoms. Anthony Chiang - 03/11/2019 4:13 PM CDT Symptoms Describe your symptoms (if pain, include location): Lightheadedness intermittent When did they start? Since the start of Losartan Additional comments (related to the above concern): Pt calling states she gets lightheaded when standing and notice this when Losartan was started. Pt also states she just received a recall letter and she is not able to match the medication number to the one listed on the recall letter. Pt is concerned about taking this medication. If a prescription is needed, patient would [...] on filedocumented in this encounter Care Teams Sider Relationship Specialty Start Date End Date Veronica Heredia, DO PCP - General Family Practice 03/22/17 [address] [facility] [place] [address] documented as of this encounter
--- OUTSIDE RECORDS SUMMARY | 2022-08-15 14:54 | XMS_ITS | Encounter Summary ---
:1940 Author Organization [facility] Address [address] [place] [address] Care Team Providers Name Role Phone FabionilsonVeronica DO Primary Care Provider Reason for Visit Auth/Cert Specialty Diagnoses / Procedures Referred By Contact Refer red To Contact Diagnoses Post-menopausal bleeding Referral ID Status Reason Start Date Expiration Date Visits Requ ested Visits Authorized [id number] 1 1 Encounter Details Date Type Department Care Team Description 04/24/2018 Surgery [facility] [address] Jas Barclay MD DILATATION AND CURETTAGE Bld Ambul Surgery [facility] WITH HYSTEROSCOPY [address] [facility] [place] [id number] [phone] Social History Tobacco Use Types Packs/Day Years [...] Sign Reading Time Taken Comments Blood Pressure 134/86 04/24/2018 1:00 PM CDT Pulse 90 04/24/2018 1:00 PM CDT Temperature 36.2 ??C (97.2 ??F) 04/24/2018 12:13 PM CDT Respiratory Rate 17 04/24/2018 1:00 PM CDT Oxygen Saturation 94% 04/24/2018 1:00 PM CDT Inhaled Oxygen Concentration - - Weight 91.2 kg (201 lb 1 oz) 04/22/2018 9:03 AM CDT Height 160.7 cm (5' 3.27) 04/22/2018 9:03 AM CDT Body Mass Index 35.31 04/22/2018 9:03 AM CDT documented in this encounter Medications at Time of Discharge Medication Sig Dispensed Refills Start Date End Date aspirin EC 81 MG enteric Take 1 [...] 24 DAILY. DISCONTINUE hour release tablet ATENOLOL. simvastatin (ZOCOR) 20 Take 1 Tab by mouth 90 Tab 3 04/0505/27/2018 MG tabletIndications: daily. Hyperlipidemia, unspecified hyperlipidemia type (HRC) documented as of this encounter Procedure Notes Jas Adrian MD - 04/24/2018 12:02 PM CDT PROCEDURE NOTE: PRE-OP DIAGNOSIS: Abnormal endometrium POST-OP DIAGNOSIS: Same. PROCEDURE: Hysteroscopy and endometrial curettege SURGEON: Jas Adrian MD SERVICE DELIVERY SUPERVISOR(S): none ANESTHESIA: MAC anesthesia: 1% lidocaine SEDATION: per anesthesia INDICATION: Postmenopausal bleeding FINDINGS: Cystic emdometrium ESTIMATED BLOOD LOSS: 5 ML, fluid deficit 30 mL COMPLICATIONS: none TISSUE REMOVED: yes DISPOSITION OF SPECIMEN(S): pathology DRAINS or PACKING (if applicable): none Jas Adrian MD - 04/24/2018 12:00 PM CDT NAME: MICHELE PIZARRO I MR#: [id number] CSN: [id number] AUTHENTICATING CLINICIAN: Jas Adrian MD CONFIRM #: [id number] LOC: 1 OPERATIVE REPORT DATE OF OPERATION: 04/24/2018 : 1940 SURGEON: Jas Adrian MD PREOPERATIVE DIAGNOSES: Postmenopausal bleeding and abnormal endometrium. POSTOPERATIVE DIAGNOSES: Postmenopausal bleeding and abnormal endometrium. PROCEDURES PERFORMED: Hysteroscopy and endometrial curettage. OPERATIVE PROCEDURE: The patient was prepped and draped in routine sterile fashion vaginally with IV sedation administered. A paracervical block with 20 mL of 1% lidocaine was administered and a 5-minute wait observed. Thecervix was then dilated in routine progressive fashion with Hegar style dilators and sounded to 7 cm. The hysteroscope was inserted and the saline distending medium was turned on. Identified was an endometrial cavity which was essentially covered with small cystic lesions which appeared to contain either clear fluid or clear mucus. The largest of these was ruptured and avulsed with a small polyp forceps and then the endometrial cavity was cleaned with a small sharp curette producing copious curettings. All of the tissue was combined in 1 specimen for pathology. The patient tolerated the procedure well and left the operating room awake, alert, and in good condition. All sponge and instrument countscorrect. EBL: 5 mL. FLUID LOSS: 30 mL. EWL:MEDQ C: CONFIRM #: [id number] documented in this encounter OR Notes OR PostOp - Matilde Roy RN - 04/24/2018 1:25 PM CDT Patient presented to Phase II coughing, had an episode of GERD with emesis per OR staff. Instructed on cough/deep breathing techniques. Also provided with instructions and demonstration on incentive spirometer use. Patient seen by Dr. Stevenson, Anesthesiologist, prior to discharge, instructed to use the incentive spirometer Q1HR while awake today. H&P - Jas Adrian MD - 04/24/2018 11:05 AM CDT Preop H&P for hysteroscopy and curettege: The patient is a 77 y.o. No obstetric history on file. No LMP recorded. Patient is postmenopausal. who presents for preoperative history and physical prior to planned hysteroscpy and curettege for postmenopausal bleeding. See previous dictations for details. . Past medical history: Past Medical History: Diagnosis Date ??? Aspirin long-term use 04/16/2015 ASA therapy 75-162 mg/day is recommended for primary CVD prevention because patient -Is female 57 years who have at least one additional major risk factor such as: -HTN -Dyslipdemia ??? Calculus of kidney right side diagnosed CT scan in [place] asymptomatic 04/18/2016 ??? H/O colonoscopy 2007 due 201704/16/2015 ??? Hyperlipidemia 07/12/2005 takes zocor ??? Hypertension 04/11/2003 takes atenolol cozaar ??? Obesity (HRC) 04/30/2006 LW Onset: [id number] ??? Postmenopausal 04/16/2015 resolved ??? Zoster Past surgical history: Past Surgical History: Procedure Laterality Date ??? BUNIONECTOMY Past obstetrical history: na Transfusion history: na She will accept blood transfusion. Medications: (Not in an outpatient encounter) Allergies: Allergies Allergen Reactions ??? Contrast [Iodinated Diagnostic Agents] Anaphylaxis ??? Penicillins Hives ??? Sulfa Antibiotics Hives Review of systems: Denies bowel or bladder problems and the complete review of systems is negative. No personal history of significant anesthesia problems. Pertinent Family history: No family history of anesthesia problems. Objective: Healthy appearing female in no distress. BP (!) 170/108 Pulse 72 Temp 36.3 ??C (97.3 ??F) (Temporal Artery) Resp 16 Ht 5' 3.27 (1.607 m) Wt 201 lb 1 oz (91.2 kg) SpO2 95% BMI 35.31 kg/m2. Thyroid area normal. Lungs clear. Heart regular rate and rhythm without murmur. Abdomen is soft and nontender. Extremities grossly normal with no edema.. Assessment: Preop H&P OK for procedure Plan: Reviewed procedure including n.p.o. after midnight, planned anesthesia and risks of bleeding, infection and injury to internal organs. Reviewed low risk of transfusion. Discussed postop expectations. She is prepared to proceed. documented in this encounter Plan of Treatment Scheduled Orders Name Type Priority Associated Diagnoses Order S chedule POCT Glucose: Point of Care Routine Once today st arting now for 1 Occurrenc es starting 2017 until 8 POCT Glucose: Point of Care Routine Post-menopausal bleeding O nce today starting now for 1 Occurrenc es starting 2017 until 8 documented as of this encounter Procedures Procedure Name Priority Date/Time Associated Comments Diagnosis MLH1 PROMOTER Routine 04/24/2018 12:00 Results fo r this METHYLATION PM CDT procedure are i n the results section. HOSPITAL OBTAINED Routine 04/24/2018 11:47 Result s for this ANATOMICAL PATHOLOGY AM CDT procedu re are in REQUEST the results section. DILATATION AND 04/24/2018 11:14 Post-menopausal CURETTAGE WITH AM CDT bleeding HYSTEROSCOPY Case Notes 1 ECG 12 LEAD INPATIENT STAT 04/24/2018 10:05 AM CDT Results for this procedure are i n the results section . SURGICAL [place] Routine 04/24/2018 7:00 AM CDT Results for this NICOLLET procedure are i n the results section . documented in this encounter Results (ABNORMAL) MLH1 Promoter Methylation (04/24/2018 12:00 PM CDT) [facility] gist Method Time Signature MLH1 Promoter Positive (A) PN SOFT Methylation Comment: This result has been reviewed and approv ed by Salome Jeffries MD., PhD. 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 TEST INFORMATION: MLH1 Promoter Methylat ion, Paraffin MLH1 methylation is common in sporadic m icrosatellite unstable tumors, like colorectal cancer and endometrial cancer, and rarely occurs in Garcia syndr ome (hereditary non-polyposis colon cancer or HNPCC). Th erefore, the presence of MLH1 methylation suggests th at the tumor is sporadic and not associated with Garcia s yndrome. However, since there have been rare reports of Ly nch syndrome-associated MLH1 methylation, al l results should be interpreted within the clinical context. The lack of MLH1 methylation in a mismatch repair deficie nt tumor suggests that it may be associated with Garcia syn drome, and germline evaluation is suggested. ??Finally, low level MLH1 methylation is not reported as positive, since it does not correlate with MLH1 inactivation and indira rosatellite instability. METHODOLOGY: DNA is isolated from tumor tissue microdissected from prepared slides. DNA is treated with sodium bisulfite, followed by amplificat ion of a segment of the MLH1 promoter region using methylati on specific real-time PCR. The MLH1 methylation leve l is calculated by comparison to the amplification of a ref erence gene. LIMITATIONS: Methylation at locations ot her than those covered by the primers and probes will n ot be detected. Results of this test must always be inte rpreted within the clinical context and other relevant data , and should not be used alone for a diagnosis of malignancy . This test is not intended to detect minimal residual dise ase. ANALYTICAL SENSITIVITY: Methylation leve ls below 10 percent are reported as negative. This test is performed pursuant to an ag reement with [employer] Test developed and characteristics deter mined by [facility]. See Compliance Statement B : [email or web address] Block ID [id number] A1 PN SOFT Comment: Performed by [facility], [address] [place] [id number] [email or web address], Edgar Phelan MD - Lab . Director Specimen Anatomical Collection Method Collection Time Receive d Time (Source) Location / / Volume Laterality 04/24/2018 12:00 04/26/2018 2:52 PM CDT PM CDT Narrative PN SOFT - 05/06/2018 7:20 PM CDT Performed at [facility] [address] [place] [address] CLIA number [id number] .insurance info sent to [facility] Jas Adrian MD LAB_1 Performing Organization Address City/State/ZIP Code Phon e Number PN SOFT [address] [place] [address] Anatomical Pathology Request (04/24/2018 11:47 AM CDT) athologist Signature Surgical Path Received PN SOFT Ord Specimen Anatomical Collection Method Collection Time Receive d Time (Source) Location / / Volume Laterality 04/24/2018 11:47 04/24/2018 2:55 AM CDT PM CDT Narrative PN SOFT - 04/24/2018 2:58 PM CDT Performed at [facility], [address] [place] [address] CLIA number [id number] Jas Adrian MD LAB_1 Performing Organization Address City/[facility] Phon e Number PN SOFT [address] [place] [address] ECG 12 Lead Inpatient (04/24/2018 10:05 AM CDT) P athologist Signature Ventricular Rate 69 BPM [facility] Atrial Rate 69 BPM [facility] P-R Interval 182 ms [facility] QRS Duration 90 ms [facility] QT 410 ms [facility] QTc 439 ms [facility] P [place] 42 degrees [facility] R [place] -5 degrees [facility] T [place] 0 degrees [facility]USE [facility] Specimen (Source) Anatomical Collection Method Collection Time Re ceived Time Location / / Volume Laterality 04/24/2018 10:05 AM CDT Narrative [facility] - 04/25/2018 4:08 PM CDT Sinus rhythm poor RWP Borderline ECG When compared with ECG of 04-AUG-2017 20 :37, No significant change was found Confirmed by JAN JACOB ([id number]) on 04/06 4:08:01 PM Procedure Note Jan Jacob MD / Epic, Internal Pro cessing - 01/26/2020 Sinus rhythm poor RWP Borderline ECG When compared with ECG of 04-AUG-2017 20 :37, No significant change was found Confirmed by JAN JACOB ([id number]) on 04/06 4:08:01 PM Jas Adrian MD PN ECG ORDERABLES Performing Organization Address City/[facility]/ZIP Code Phon e Number MUSE [facility] [address] [place] [address] Pathology Report (04/24/2018 7:00 AM CDT) Component Value Ref Test Analysis Performed At Patholo gist Range Method Time Signature Path: REVISED SURGICAL PATHOLOGY REPORT PN SOFT Report last revised: 05/07/2018 ??13:27 Pathology #: [id number] ? 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 Reviewed with ANUPAMA. Results were discussed with Dr. Jas wooten on 04/25/2018. Diagnosis previously reported on 04/26/18. ??Additional diagn ostic information added to the end of the report. ? LILY DE ANDA MD ? (electronic signatur e) ? 05/07/2018 ??13:2 7 CLINICAL NOTES: Postmenopausal bleeding GROSS DESCRIPTION: The specimen is labeled endometrial curettings and polyp and consists of multiple red-schofield, hemorrhagic soft tissue fragm ents and hemorrhagic material aggregating to 3.5 x 2.5 x 1 cm in agg regate. The specimen is entirely submitted in 3 blocks. ? JENDE MICROSCOPIC DESCRIPTION: The microscopic examination has been performed. ADDENDUM/SUPPLEMENTAL: Results of Immunostaining for Mismatch Repair Proteins (MMR ), block ?? 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 ??This is an abnormal pattern of mismatch repair s taining that ?? can be seen in both sporadic cancers and those with germ line ?? mutations such as with Garcia syndrome. ??A tissue block will be sent ?? for MLH1 promoter hypermethylation testing. ?? A positiv e test for ?? MLH1 hypermethylation suggests that the tumor is sporadi c; germline ?? evaluation is typically not indicated in this setting. ? ?A negative ?? MLH1 methylation test suggests the possibility of Garcia syndrome; ?? referral to a genetic counselor is indicated in this set ting for ?? further testing. ADDENDUM #2 05/07/18: ? MLH1 Promoter Methylation, Paraf fin ??INSTITUTION: ?? [facility]; [place], [place] ??THEIR #: ? [id number] ??RESULTS: ??MLH1 Promoter Methylation ? Positive ??This result has been reviewed and approved by Salome osborn MD., ??PhD. ??MLH1 promoter methylation was detected. ??NOTE: Please see complete report from [facility] f or ??methodology and further details. Performed at [facility], [address] [place] [id number] Specimen Anatomical Location Collection Method Collection Time Received Time (Source) / Laterality / Volume ENDOMETRIAL 04/24/2018 7:00 04/24/2018 7 :00 STRUCTURE / Unknown AM CDT AM CDT Jas Adrian MD LAB_1 Performing Organization Address City/State/ZIP Code Phon e Number SOFT [address] [place] [address] documented in this encounter Visit Diagnoses Diagnosis Post-menopausal bleeding - Primary Postmenopausal bleeding Post-menopausal bleeding Postmenopausal bleeding documented in this encounter Administered Medications Inactive Administered Medications - up to 3 most recent administrations Medication Order MAR Action Action Date Dose Rate Site fentaNYL (SUBLIMAZE) injection Given 04/24/2018 11:40 AM CDT 50 mcg 25-50 mcg 25-50 mcg, Intravenous, [id number], Other, Moderate to Severe Pain (pain score 5 and above) in the immediate postop period when faster on-set, short acting agent is desired., Starting on Sun04/24/18 at 1044, Until Sun04/24/18 at 1533, Administer every 5 minutes as needed, to a maximum cumulative dose of 250 mcg. For patients with a regional, spinal, or local anesthetic, may give for anticipated pain as the anesthetic wears off., PACU/Recovery Given 04/24/2018 11:32 AM CDT 50 mcg lactated ringers infusion Started 04/24/2018 11:03 AM CDT 25 mL/hr 25 mL/hr 25 mL/hr, Intravenous, CONTINUOUS, Starting on Sun04/24/18 at 1115, Administer on all preop surgery patients, ages 12 and older, unless specified differently in the Protocol for Preop Initiation of IV fluids Order Set., Pre-op lidocaine-epinephrine 1 %-1:192046 Given 04/24/2018 11:48 AM CDT 20 mL Vaginal injection ONCE PRN, Starting on Sun04/24/18 at 1148, Until Sun04/24/18 at 1533, Intra-op sodium chloride for irrigation 0.9 % Given 04/24/2018 11:52 AM CDT 150 mL ONCE PRN, Starting on Sun04/24/18 at 1152, Intra-op documented in this encounter Active and Recently Administered Medications Times are shown in CDT. Scheduled Medication Order 04/22/2018 04/23/2018 04/24/2018 NO pre-op antibiotics needed 111 5 (Due) ONCE, Sun04/24/18 at 1115, For 1 dose, Pre-op Continuous Medication Order 04/22/2018 04/23/2018 04/24/2018 lactated ringers infusion 1103 ( Started - Provider: Matilde Andrade RN) 25 mL/hr, Intravenous, at 25 mL/hr, CONT INUOUS, Starting Sun04/24/18 at 1115, Administer on all preop surgery patients, ages 12 and older, unless specified differently in the Protocol for Preop Initiation of IV fluids Order Set., Pre-op lactated ringers infusion 1215 ( Due) Intravenous, at 50 mL/hr, CONTINUOUS, Starting Sun04/24/18 at 12 15 PRN Medication Order 04/22/2018 04/23/2018 04/24/2018 fentaNYL (SUBLIMAZE) injection 25-100 mcg 25-100 mcg, Intravenous, [id number], Pain, Sedation, Procedure, Severe Pain (pain score 8-10), Starting Sun04/24/18 at 1044, Notify Anesthesiologist if total cumulative dose in excess of 250 mcg., Pre-op fentaNYL (SUBLIMAZE) injection 25-50 mcg 1132 (Given - Provider: Elva Noel APRN, IJEOMA)1140 (Given - Provider: Elva Noel APRN, CRNA) 25-50 mcg, Intravenous, [id number], Other, Moderate to Severe Pain (pain score 5 and above) in the immediate postop period when faster on-set, short acting agent is desired., Starting 04/24/18 at 1044, Administer every 5 minutes as needed, t o a maximum cumulative dose of 250 mcg. For patients with a regional, spinal, or local anesthetic, may give for anticipated pain as the anesthetic wears off., PACU/Recovery ketorolac (TORADOL) injection 15 mg 15 mg, Intravenous, Q6H PRN, Other, Mild Pain (pain score 1-4), Starting Sun04/24/18 at 1227, For 3 days, Post-op lidocaine-epinephrine 1 %-1:125760 injection 1148 (Given - Provider: Jas Adrian MD) ONCE PRN, Starting Sun04/24/18 at 1148, Intra-op meperidine (DEMEROL) injection 12.5 mg 12.5 mg, Intravenous, [id number], Shiverin g, Starting Sun04/24/18 at 1044, For 2 doses, Maximum cumulative dose is 25 mg. Do not give to patients receiving MAO inhibitors (e.g. phenelzine (NARDIL), tranyl cypromine (PARNATE), selegiline (ELDEPRYL))., PACU/Recovery midazolam (VERSED) injection 1-2 mg 1-2 mg, Intravenous, [id number], Sedation, Anxiety, Procedure, Starting Sun04/24/18 at 1044, MAX Dose 2mg, Pre-op ondansetron (ZOFRAN) injection 4 mg 4 mg, Intravenous, Q4H PRN, Nausea, Vomi ting, Starting Sun04/24/18 at 1044, If multiple medications are ordered for nausea or vomiting - administer in the following priority based on medications ordered , effectiveness and availability: ondans etron (ZOFRAN) > prochlorPERAZINE (COMPAZINE) > diphenhydrAMINE (BENADRYL) > hydrOXYzine HCl (VISTARIL)> ePHEDrine > scopolamine (TRANSDERM-SCOP)., PACU/Recovery sodium chloride for irrigation 0.9 % 1152 (Given - Provider: Jas Adrian MD) ONCE PRN, Starting 04/24/18 at 1152, Intra-op documented in this encounter Care Teams Storage Garage Manager Relationship Specialty Start Date End Date Veronica Heredia, PCP - General Family Practice 03/22/17 [id number] [facility] RANDELL Redman [id number] documented as of this encounter
--- OUTSIDE RECORDS SUMMARY | 2022-08-15 14:54 | XMS_ITS | Encounter Summary ---
:1940 Author Organization [facility] Address [address], [place] [address] Care Team Providers Name Role Phone Veronica Heredia DO Primary Care Provider Reason for Visit Reason Comments HYPERTENSION Encounter Details Date Type Department Care Team Description 08/22/2017 Office Visit Sawyer Hernandez Veronica Heredia, Essential hypertension (Primary Dx); Medicine DO Right upper quadrant pain; [id number] [address] [address] Gastroesop hageal reflux disease without esophagitis [facility] [place] [address] [facility] [place] [phone] [address] Social History Tobacco Use Types Packs/Day Years [...] Sign Reading Time Taken Comments Blood Pressure 142/85 08/22/2017 12:47 PM CDT Pulse 66 08/22/2017 10:21 AM CDT Temperature - - Respiratory Rate - - Oxygen Saturation - - Inhaled Oxygen Concentration - - Weight 89.8 kg (198 lb) 08/22/2017 10:21 AM CDT Height - - Body Mass Index 33.99 08/04/2017 8:39 PM CDT documented in this encounter Progress Notes Veronica Heredia, - 08/22/2017 10:30 AM CDT CHIEF COMPLAINT: Chief Complaint Patient presents with ??? HYPERTENSION SUBJECTIVE : This is a 76 y.o. female patient presents for hypertension, she brings in home blood pressure monitoring. Home blood pressures minimally elevated above goal this past week with normal pulse per home monitoring logs. She notes after starting hydrochlorothiazide her blood pressure was in the low-normal range however she felt lightheaded with this change especially when getting up to stand. She discontinued its use. She remembers that years ago she was also tried on a water pill and she felt the same way. She would like to make a different change her blood pressure medication regimen and avoid a diuretic if she can. She has not felt lightheaded since stopping the hydrochlorothiazide. Her abdominal discomfort has also resolved. Diarrhea resolved too. Periodic reflux and regurgitation, she is not taking any antacids currently. She notes that if this becomes a recurrent problem she will restart an H2 jackie, which she was on after her emergency department visit and it was helping. She plans to head b ack to [place] this coming week. She feels well today without any significant acute symptoms or adverse side effects from her medications. She will like to review her results from her abdominal ultrasound study and H. pylori screening test. No nausea, vomiting, diarrhea, constipation, abdominal pain. No chest pain or difficulty breathing. No vertigo or dizziness currently. PAST MEDICAL HISTORY : Patient Active Problem List Diagnosis ??? Essential hypertension (HRC) ??? Hyperlipidemia (HRC) ??? Esophageal reflux ??? Postmenopausal ??? Aspirin long-term use ??? H/O colonoscopy ??? BMI 35.0-35.9,adult ??? Calculus of kidney MEDICATIONS : Current Outpatient Prescriptions Medication Sig Dispense Refill ??? aspirin EC 81 MG enteric coated tablet Take 1 tablet by mouth daily (every 24 hours). 13 ??? losartan (COZAAR) 100 MG tablet Take 1 Tab by mouth daily. 90 Tab 3 ??? metoprolol succinate (TOPROL XL) 25 MG 24 hour release tablet Take 1 Tab by mouth daily. Take with Toprol XL 50 mg tab to equal 75 mg. 90 Tab 3 ??? simvastatin (ZOCOR) 20 MG tablet Take 1 Tab by mouth daily. 90 Tab 3 No current facility-administered medications for this visit. ALLERGIES: Allergies Allergen Reactions ??? Other PN: LW Other1: -IV DYE/ANAPHYLAXIS ??? Penicillins PN: LW Reaction: HIVES ??? Sulfa Antibiotics PN: LW Reaction: HIVES OBJECTIVE : Vital Signs: BP (!) 142/85 Pulse 66 Wt 198 lb (89.8 kg) BMI 33.99 kg/m2 Gen.: Alert, cooperative in no acute [...] The abdomen was soft, nondistended and nontender. Psych: No evidence of overt anxiety or depression. Extremities: No cyanosis, clubbing or edema. Musculoskeletal: Normal tone. Skin: No suspicious lesions on exposed skin. Neurologic: Alert, oriented. Right upper quadrant ultrasound results reviewed, benign liver cyst noted, no other abnormalities noted. H. pylori test negative. Stress testing previously ordered not completed. ASSESSMENT/PLAN: ICD-10-CM 1. Essential hypertension (HRC) I10 metoprolol succinate (TOPROL XL) 25 MG 24 hour release tablet Basic Metabolic Panel losartan (COZAAR) 100 MG tablet 2. Right upper quadrant pain R10.11 3. Gastroesophageal reflux disease without esophagitis K21.9 1. Suboptimal blood pressure control today. Hydrochlorothiazide removed from her medication list. Cozaar refill provided at current dosage of 100 mg daily. Increase Toprol-XL from 50 mg daily to 75 mg daily. Return to clinic next week for blood pressure check with her home monitor and recheck of her electrolyte panel next week which is 4 weeks after she started the increased dosage of Cozaar. 2. If recurrent reflux, not daily affecting her utilize Zantac p.r.n. If worsening or daily return to clinic. 3. Abdominal pain resolved, recent imaging results and labs reviewed the patient. 4. RTC if not improving or worsening sooner than planned. BP check next week and f/u q6mo unless BP is elevated at recheck. This was dictated using a voice recognition program, typographical and sound like errors may occur. documented in this encounter Plan of Treatment Not on filedocumented as of this encounter Results (ABNORMAL) Basic Metabolic Panel (08/29/2017 8:07 AM CDT) athologist Signature Creatinine 0.96 0.55 - PN SOFT Serum 1.02 mg/dL Lab Glucose 108 (H) 70 - 100 PN SOFT mg/dL Comment: The stated glucose range is for the fast ing state. Non-fasting glucose range is 70-180 mg/d L CO2 27 22 - 31 mmol/L PN SOFT Chloride 107 98 - 109 mmol/L PN SOFT Potassium 3.8 3.5 - 5.2 mmol/L PN SOFT Sodium 144 136 - 145 mmol/L PN SOFT Blood Urea Nitrogen 15 9 - 26 mg/dL PN SOFT Calcium 9.9 8.4 - 10.2 mg/dL PN SOFT Est GFR Am >60 >60 mL/min/1.73m2 PN SOFT Est GFR Non-Afr Am 58 (L) >60 mL/min/1.73m2 PN SOFT Comment: Normal>60, moderate decrease 30 - 59, se rosalinda decrease 15 - 29, renal failure <15 mL/min/1.73 m2 NOTE: ??Choose the eGFR result above alissa ropriate for the race of the patient. Specimen Anatomical Collection Method Collection Time Receive d Time (Source) Location / / Volume Laterality 08/29/2017 8:07 AM 7 9:08 CDT AM CDT Narrative PN SOFT - 08/29/2017 9:39 AM CDT Performed at [facility], [address] [place] [address] CLIA number [id number] Veronica Heredia DO LAB_1 Performing Organization Address City/State/ZIP Code Phon e Number PN SOFT [address] [place] [address] documented in this encounter Visit Diagnoses Diagnosis Essential hypertension (HRC) - Primary Unspecified essential hypertension Right upper quadrant pain Abdominal pain, right upper quadrant Gastroesophageal reflux disease without esophagitis Esophageal reflux Essential hypertension (HRC) Unspecified essential hypertension documented in this encounter Care Teams Scrap Baler Relationship Specialty Start Date End Date Veronica Heredia DO PCP - General Family Practice 03/22/17 [address] [facility] [place] [address] documented as of this encounter
--- OUTSIDE RECORDS SUMMARY | 2022-08-15 14:54 | XMS_ITS | Encounter Summary ---
:1940 Author Organization [facility] Address [address], [place] [address] Care Team Providers Name Role Phone Veronica Heredia DO Primary Care Provider Reason for Visit Reason Comments Follow-up PMB Encounter Details Date Type Department Care Team Description 03/14/2018 Office Visit Jas Melendez W, Postmenopaus al bleeding Obstetrics/Gynecolog y (Primary Dx) [address] [place] [address] [facility] [place] [phone] [address] Social History Tobacco Use Types Packs/Day Years [...] Sign Reading Time Taken Comments Blood Pressure 158/90 03/14/2018 11:14 AM CDT Pulse 62 03/14/2018 11:14 AM CDT Temperature - - Respiratory Rate - - Oxygen Saturation - - Inhaled Oxygen Concentration - - Weight 91.2 kg (201 lb) 03/14/2018 11:14 AM CDT Height 160.7 cm (5' 3.25) 03/14/2018 11:14 AM CDT Body Mass Index 35.32 03/14/2018 11:14 AM CDT documented in this encounter Progress Notes Jas Adrian MD - 03/14/2018 11:20 AM CDT Patient is well-known to us. She had an endometrial biopsy and removal of a endocervical polyp 3 weeks ago. She stopped bleeding almost immediately after that. A week ago she had a little bit of dark bloody discharge and then 4 days ago she had some bright red spotting. Her endometrial biopsy from 10 years ago and also from 3 weeks ago was completely unremarkable and the polyp was benign. The ultrasound however on both occasions showed irregular or heterogeneous endometrium. Her cervix today is closed and there is no bleeding or discharge. I discussed this at considerable length with her. If she does any more bleeding at all she is going to need a hysteroscopy and D&C because of the appearanceof her endometrium. She will follow up by phone in 2-3 weeks. documented in this encounter Plan of Treatment Not on filedocumented as of this encounter Visit Diagnoses Diagnosis Postmenopausal bleeding - Primary documented in this encounter Care Teams Bisque Ware Dipper Relationship Specialty Start Date End Date Veronica Heredia DO PCP - General Family Practice 03/22/17 [address] [facility] [place] [address] documented as of this encounter
--- OUTSIDE RECORDS SUMMARY | 2022-08-15 14:54 | XMS_ITS | Encounter Summary ---
:1940 Author Organization [facility] Address [address] [place] [address] Care Team Providers Name Role Phone Veronica Heredia DO Primary Care Provider Reason for Visit Procedure/Equipment (Routine) - Incomplete Specialty Diagnoses / Procedures Referred By Contact Refer red To Contact Diagnoses PMB (postmenopausal bleeding) Veronica Heredia, [place] [address] [address] [facility] [place] [address] Referral ID Status Reason Start Date Expiration Date Visits V isits Requested Authorized [id number] Incomplete 02/11/2018 05/13/2019 1 1 Encounter Details Date Type Department Care Team Description 02/12/2018 Imaging [facility] Ul[facility]ound Veronica Heredia, DO PMB (postmenopausal [address] [address] [place] [address] [facility] bleed ing) [facility] [place] [address] [place] [phone] (Wo rk) Social History Tobacco Use Types [...] Name Priority Date/Time Associated Diagnosis Comme nts US PELVIC COMPLETE Routine 02/12/2018 4:41 PM PMB (postmenopau clark Results for this W EV CDT bleeding) procedure are i n the results section. documented in this encounter Results US Pelvic Complete W EV (02/12/2018 4:41 PM CDT) Anatomical Region Laterality Modality Pelvis Ultrasound Specimen (Source) Anatomical Collection Method Collection Time Re ceived Time Location / / Volume Laterality 02/12/2018 4:05 PM CDT Impressions 02/12/2018 5:00 PM CDT IMPRESSION: Thickened, heterogeneous appearance of t he endometrial stripe. Cannot reliably distinguish between hyperplasia and neoplasia by ultrasound, requires clinical correlation. Narrative 02/12/2018 5:00 PM CDT COMPARISON: ??02/20/2008. TECHNIQUE: ??Transabdominal and transvag inal imaging was performed. FINDINGS: ?? Uterus: Measures 8.2 x 3.6 x 5.3 cm. Judith ears unremarkable. Endometrium: Measures up to 1.6 cm in th ickness. The endometrium is thickened and heterogeneous in appearance with innumerable tiny cystic spaces. Right Ovary: Not seen. Left Ovary: Measures 1.7 x 1.3 x 1.4 cm and appears unremarkable Left Ovary Blood Flow: Present. Free Fluid: no significant free fluid. Procedure Note Trent Murguia MD - 02/12/2018For matting of this note might be different from the original. COMPARISON: 02/20/2008. TECHNIQUE: Transabdominal and transvagin al imaging was performed. FINDINGS: Uterus: Measures 8.2 x 3.6 x 5.3 cm. Judith ears unremarkable. Endometrium: Measures up to 1.6 cm in th ickness. The endometrium is thickened and heterogeneous in appearance with innumerable tiny cystic spaces. Right Ovary: Not seen. Left Ovary: Measures 1.7 x 1.3 x 1.4 cm and appears unremarkable Left Ovary Blood Flow: Present. Free Fluid: no significant free fluid. IMPRESSION IMPRESSION: Thickened, heterogeneous appearance of t he endometrial stripe. Cannot reliably distinguish between hyperplasia and neoplasia by ultrasound, requires clinical correlation. Veronica THOMPSON US documented in this encounter Visit Diagnoses Diagnosis PMB (postmenopausal bleeding) Postmenopausal bleeding documented in this encounter Care Teams Replanting Machine Crew Relationship Specialty Start Date End Date Veronica Heredia, PCP - General Family Practice 03/22/17 [address] [facility] [place] [address] documented as of this encounter
--- OUTSIDE RECORDS SUMMARY | 2022-08-15 14:54 | XMS_ITS | Encounter Summary ---
:1940 Author Organization [facility] Address [address] [place] [address] Care Team Providers Name Role Phone Veronica Heredia DO Primary Care Provider Reason for Visit Reason Onset Date Comments RESULTS, TEST 08/30/2017 Patient Calling Back 08/30/2017 Encounter Details Date Type Department Care Team Description 08/30/2017 Telephone [facility] Veronica Heredia, RESULTS, TEST; Patient [address] [facility] Call[address] Back [address] [address] [place] [address] Ctr [phone] [place] [address] Social History Tobacco Use Types Packs/Day Years [...] documented as of this encounter Nursing Notes Blanca Alvarez RN - 08/30/2017 3:49 PM CDT Relayed message below to pt. Verbalized understanding and agreed with plan. Elva Robles - 08/30/2017 3:47 PM CDT Pt calling back, transferred to triage. Yamilka Jay LPN - 08/30/2017 1:47 PM CDT Left message for patient to call back regarding lab results Veronica Heredia DO - 08/30/2017 7:51 AM CDT Please, let know that her potassium and sodium were normal, her kidney function with a slight decrease but not severe. I sent a letter but it probably went to [place]. Please have her follow-up with her primary doctor in [place] for a blood pressure recheck and electrolyte recheck with kidney function within a month. documented in this encounter Plan of Treatment Not on filedocumented as of this encounter Visit Diagnoses Not on filedocumented in this encounter Care Teams Sports Physiologist Relationship Specialty Start Date End Date Veronica Heredia DO PCP - General Family Practice 03/22/17 [address] [facility] [address] [place], [place] [address] documented as of this encounter
--- OUTSIDE RECORDS SUMMARY | 2022-08-15 14:54 | XMS_ITS | Encounter Summary ---
:1940 Author Organization [facility] Address [address] [place] [address] Care Team Providers Name Role Phone Veronica Heredia DO Primary Care Provider Reason for Referral (Routine) - Closed Specialty Diagnoses / Procedures Referred By Contact Refer red To Contact Procedures Jas Adrian MD ECG 12 Lead Inpatient [address] [facility] [place] [address] Referral ID Status Reason Start Date Expiration Date Visits Requ ested Visits Authorized [id number] Closed 04/24/2018 07/24/2019 1 1 Reason for Visit Auth/Cert Specialty Diagnoses / Procedures Referred By Contact Refer red To Contact Diagnoses Post-menopausal bleeding Referral ID Status Reason Start Date Expiration Date Visits Requ ested Visits Authorized [id number] 1 1 Encounter Details Date Type Department Care Team Description 04/24/2018 Hospital Encounter [place] [address] Jas Adrian, Post-menopausal Mall Blchuyita Ambul MD bleeding Surgery [address] [address] [phone] Social History Tobacco Use Types Packs/Day Years [...] and endometrial curettege SURGEON: Jas Adrian MD AUXILIARY PLANT OPERATOR(S): none ANESTHESIA: MAC anesthesia: 1% lidocaine SEDATION: per anesthesia INDICATION: Postmenopausal bleeding FINDINGS: Cystic emdometrium ESTIMATED BLOOD LOSS: 5 ML, fluid deficit 30 mL COMPLICATIONS: none TISSUE REMOVED: yes DISPOSITION OF SPECIMEN(S): pathology DRAINS or PACKING (if applicable): none Jas Adrian MD - 04/24/2018 12:00 PM CDT NAME: MICHELE PIZARRO I MR#: [id number] CSN: [id number] AUTHENTICATING CLINICIAN: Jas Adrian MD CONFIRM #: [id number] LOC: 1 OPERATIVE REPORT DATE OF OPERATION: [...] LOSS: 30 mL. EWL:MEDQ C: CONFIRM #: [id number] documented in this encounter OR Notes OR [...] kidney right side diagnosed CT scan in [place] asymptomatic 04/18/2016 ??? H/O colonoscopy 2007 due 2018 04/16/2015 ??? Hyperlipidemia 07/12/2005 takes zocor ??? Hypertension 04/11/2003 takes atenolol cozaar ??? Obesity (HRC) 04/30/2006 LW Onset: 31Mhw03 ??? Postmenopausal 04/16/2015 resolved ??? Zoster Past [...] i n the results section . SURGICAL ELENA MANCIA Routine 04/24/2018 7:00 AM CDT Results for this NICOLLET procedure are i n the results section . documented in this encounter Results (ABNORMAL) MLH1 Promoter Methylation (04/24/2018 12:00 PM CDT) [facility] Method Time Signature MLH1 Promoter Positive (A) [...] performed pursuant to an ag reement with [employer] Test developed and characteristics deter mined by [facility]. See Compliance Statement B : [employer]/ Block ID [id number] A1 PN SOFT Comment: Performed by [facility], [address], [facility] [address] [email or web address], Edgar Phelan MD - Lab . Director Specimen Anatomical Collection Method Collection Time Receive d Time (Source) Location / / Volume Laterality 04/24/2018 12:00 04/26/2018 2:52 PM CDT PM CDT Narrative PN SOFT - 05/06/2018 7:20 PM CDT Performed at [facility] [address] [place] [address] CLIA number [id number] .insurance info sent to refe rence lab Jas Adrian MD LAB_1 Performing Organization Address City/Va Hospital/ZIP Code Phon e Number PN SOFT [address] [place] [address] Anatomical Pathology Request (04/24/2018 11:47 AM CDT) athologist Signature Surgical Path Received PN SOFT Ord Specimen Anatomical Collection Method Collection Time Receive d Time (Source) Location / / Volume Laterality 04/24/2018 11:47 04/24/2018 2:55 AM CDT PM CDT Narrative PN SOFT - 04/24/2018 2:58 PM CDT Performed at [place] [address] [place] [address] CLIA number [id number] Jas Adrian MD LAB_1 Performing Organization Address [facility]/Va Hospital/[facility] Phon e Number PN SOFT [address] [place] [address] ECG 12 Lead Inpatient (04/24/2018 10:05 AM CDT) athologist Signature Ventricular Rate 69 BPM MUSE [facility] Atrial Rate 69 BPM [facility]USE [facility] P-R Interval 182 ms MUSE [facility] QRS Duration 90 ms MUSE [facility] QT 410 ms MUSE [facility] QTc 439 ms MUSE [facility] P [place] 42 degrees MUSE G[facility] R [place] -5 degrees MUSE GHP T [place] 0 degrees MUSE GHP Specimen (Source) Anatomical [...] MD PN ECG ORDERABLES Performing Organization Address City/State/ZIP Code Phon e Number MUSE [facility] [address] [place] [address] Pathology Report (04/24/2018 7:00 AM CDT) Component Value Ref Test Analysis Performed At [facility] gist Range Method Time Signature Path: REVISED SURGICAL PATHOLOGY REPORT PN SOFT Report last revised: 05/07/2018 ??13:27 Pathology #: [id number] ? 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 Reviewed with ANUPAMA. Results were discussed with Dr. Jsa Box er on 04/25/2018. Diagnosis previously reported on 04/26/18. [...] MLH1 Promoter Methylation, Paraf fin ??INSTITUTION: ?? [facility]; [place], [place] ??THEIR #: ? [id number] ??RESULTS: ??MLH1 Promoter Methylation ? Positive ??This result has been reviewed and approved by Salome osborn MD., ??PhD. ??MLH1 promoter methylation was detected. ??NOTE: Please see complete report from [facility] f or ??methodology and further details. Performed at [address] [address] Specimen Anatomical Location Collection Method Collection Time Received Time (Source) / Laterality / Volume ENDOMETRIAL 04/24/2018 7:00 04/24/2018 7 :00 STRUCTURE / Unknown AM CDT AM CDT Jas Adrian MD LAB_1 Performing Organization Address City/State/ZIP Code Phon e Number PN SOFT [address] [place] [address] [phone] documented in this encounter Visit Diagnoses Diagnosis Post-menopausal bleeding - Primary Postmenopausal bleeding documented in this encounter Administered Medications Inactive Administered Medications - up to 3 most recent administrations Medication Order MAR Action Action Date Dose Rate Site fentaNYL (SUBLIMAZE) injection Given 04/24/2018 11:40 AM CDT 50 mcg 25-50 mcg 25-50 mcg, Intravenous, [id number], Other, Moderate to Severe Pain (pain score [...] IV fluids Order Set., Pre-op lidocaine-epinephrine 1 %-1:[id number] Given 04/24/2018 11:48 AM CDT 20 mL [...] (SUBLIMAZE) injection 25-100 mcg 25-100 mcg, Intravenous, [id number], Pain, Sedation, Procedure, Severe Pain (pain score 8-10), Starting Sun04/24/18 at 1044, Notify Anesthesiologist if total cumulative dose in excess of 250 mcg., Pre-op fentaNYL (SUBLIMAZE) injection 25-50 mcg 1132 (Given - Provider: Elva Noel APRN, IJEOMA)1140 (Given - Provider: Elva Noel APRN, IJEOMA) 25-50 mcg, Intravenous, [id number], Other, Moderate to Severe Pain (pain score 5 and above) in the immediate postop period when faster on-set, short acting agent is desired., Starting Sun04/24/18 at 1044, Administer every 5 minutes as needed, t o a maximum cumulative dose of 250 mcg. For patients with a regional, spinal, or local anesthetic, may give for anticipated pain as the anesthetic wears off., PACU/Recovery ketorolac (TORADOL) injection 15 mg 15 mg, Intravenous, Q6H PRN, Other, Mild Pain (pain score 1-4), Starting Sun04/24/18 at 1227, For 3 days, Post-op lidocaine-epinephrine 1 %-1:[id number] injection 1148 (Given - Provider: Jas Adrian MD) ONCE PRN, Starting Sun04/24/18 at 1148, Intra-op meperidine (DEMEROL) injection 12.5 mg 12.5 mg, Intravenous, [id number], Shiverin g, Starting Sun04/24/18 at 1044, For 2 doses, Maximum cumulative dose is 25 mg. Do not give to patients receiving MAO inhibitors (e.g. phenelzine (NARDIL), tranyl cypromine (PARNATE), selegiline (ELDEPRYL))., PACU/Recovery midazolam (VERSED) injection 1-2 mg 1-2 mg, Intravenous, [id number], Sedation, Anxiety, Procedure, Starting Sun04/24/18 at 1044, [...] Adrian MD) ONCE PRN, Starting Sun04/24/18 at 1152, Intra-op documented in this encounter Care Teams Senior Tableau Developer Relationship Specialty Start Date End Date Veronica Heredia DO PCP - General Family Practice 03/22/17 [address] [facility] [place] [phone] documented as of this encounter
--- OUTSIDE RECORDS SUMMARY | 2022-08-15 14:54 | XMS_ITS | Encounter Summary ---
:1940 Author Organization [facility] Address [address], [place] [address] Care Team Providers Name Role Phone Robleskarina Veronica Benito DO Primary Care Provider Reason for Visit Reason Comments VAGINAL BLEEDING Encounter Details Date Type Department Care Team Description 03/11/2018 Telephone Jas Melendez MD VAGINAL BLEEDING Obstetrics/Gynecolog y [address] [facility] [address] [place] [address] [place] [address] [place] [address] [phone] Social History Tobacco Use Types Packs/Day Years [...] documented as of this encounter Nursing Notes Vandana Ram RN - 03/12/2018 3:18 PM CDT Images from the original note were not included. Jas Adrian MD Flander, Sandra K, RN Cc: Brendon Peres Obgycabrera Triage ? Caller: Unspecified (Yesterday, 11:45 AM) ? She should make an appointment for follow up at her convenience. Spoke with pt; appt made 03/14/18. Ruma Clark, RN - 03/11/2018 11:46 AM CDT Reason for Call: Clinician input needed on symptom based concern. Next Steps: Route to Triage Nurse pool for patient follow up. Additional Information: Patient calls with concerns of additional post menopausal bleeding since herOV 02/18/18. She had brown spotting throughout the day on 03/07/18 and now today has light red bleeding, filled 1/2 pad, so far. She denies any cramping or pain. Please advise on follow up recommendations. documented in this encounter Plan of Treatment Not on filedocumented as of this encounter Visit Diagnoses Not on filedocumented in this encounter Care Teams Tractor Trailer Operator Relationship Specialty Start Date End Date Veronica Heredia, PCP - General Family Practice 03/22/17 [address] [facility] [place] [address] documented as of this encounter
--- OUTSIDE RECORDS SUMMARY | 2022-08-15 14:54 | XMS_ITS | Encounter Summary ---
:1940 Author Organization [facility] Address [address] [place] [address] Care Team Providers Name Role Phone RobleskarinaVeronica DO Primary Care Provider Encounter Details Date Type Department Care Team Description 05/02/2018 Lab Visit [facility] raw Endometrial cancer (HRC); [address] [place] [address] Social History Tobacco Use Types Packs/Day Years [...] encounter Progress Notes Kalani López RN - 05/06/2018 2:34 PM CDT Ok per Dr Ding documented in this encounter Plan of Treatment Not on filedocumented as of this encounter Procedures Procedure Name Priority Date/Time Associated Diagnosis Comme nts COMPLETE BLOOD Routine 05/02/2018 3:25 PM Endometrial cancer R esults for this COUNT-W/DIFF CDT (C) procedure are in Pre-op evaluation the result s section. COMP METABOLIC PANEL Routine 05/02/2018 3:25 PM Endometrial ca ncer Results for this CDT (HRC) procedure are in Pre-op evaluation the result s section. DIFFERENTIAL Routine 05/02/2018 3:25 PM Results f or this CDT procedure are i n the results section. documented in this encounter Results (ABNORMAL) Differential (05/02/2018 3:25 PM CDT) [facility] Method Time Signature Absolute 4.8 1.8 - 8.0 PN SOFT Neutrophils k/cmm Absolute 1.8 1.1 - 4.0 PN SOFT Lymphocytes k/cmm Absolute 0.7 0.2 - 0.8 PN SOFT Monocytes k/cmm Absolute 0.1 0.0 - 0.5 PN SOFT Eosinophils k/cmm Absolute 0.0 0.0 - 0.2 PN SOFT Basophils k/cmm Immature 0.7 (H) 0.0 - 0.5 PN SOFT Granulocytes % Specimen Anatomical Collection Method Collection Time Receive d Time (Source) Location / / Volume Laterality 05/02/2018 3:25 PM 05/02/201 8 3:37 CDT PM CDT Narrative PN SOFT - 05/02/2018 3:41 PM CDT Performed at [facility], [address] [place] [address] CLIA number [id number] Tre Ding MD LAB_1 Performing Organization Address City/State/ZIP Code Phon e Number PN SOFT [address] [place] [address] [phone] (ABNORMAL) Comp Metabolic Panel (05/02/2018 3:25 PM CDT) [facility] Method Time Signature Aspartate 17 10 - 40 PN SOFT Aminotransferase U/L Lab Glucose 104 (H) 70 - 100 PN SOFT mg/dL Comment: The stated glucose range is for the fast ing state. Non-fasting glucose range is 70-180 mg/d L Bilirubin Total 0.4 0.2 - 1.2 mg/dL PN SOFT Calcium 9.9 8.4 - 10.4 mg/dL PN SOFT Sodium 144 136 - 145 mmol/L PN SOFT Potassium 4.4 3.5 - 5.2 mmol/L PN SOFT Blood Urea Nitrogen 18 9 - 26 mg/dL PN SOFT Albumin 4.1 3.4 - 5.0 g/dL PN SOFT Chloride 108 98 - 109 mmol/L PN SOFT Alk Phos 87 40 - 150 U/L PN SOFT Protein Total, Serum 7.2 6.4 - 8.3 g/dL PN S OFT Creatinine Serum 0.92 0.55 - 1.02 mg/dL PN SO FT Est GFR Am >60 >60 mL/min/1.73m2 PN SOFT Est GFR Non-Afr Am >60 >60 mL/min/1.73m2 PN SOFT Comment: Normal>60, moderate decrease 30 - 59, se rosalinda decrease 15 - 29, renal failure <15 mL/min/1.73 m2 NOTE: ??Choose the eGFR result above alissa ropriate for the race of the patient. Alanine Aminotransferase 13 9 - 55 U/L PN S OFT CO2 26 22 - 31 mmol/L PN SOFT Specimen Anatomical Collection Method Collection Time Receive d Time (Source) Location / / Volume Laterality 05/02/2018 3:25 PM 8 3:37 CDT PM CDT Narrative PN SOFT - 05/02/2018 4:23 PM CDT Performed at [facility], [facility] [place] [address] CLIA number [id number] Tre Ding MD LAB_1 Performing Organization Address City/State/ZIP Code Phon e Number PN SOFT [address] [place] [address] [phone] CBC - Complete Blood Count W/Diff (05/02/2018 3:25 PM CDT) athologist Signature White Blood Cell 7.5 3.8 - 11.0 PN SOFT Count k/cmm Red Blood Cell 4.65 3.70 - PN SOFT Count 5.20 m/cmm Hemoglobin 13.5 11.8 - PN SOFT 15.5 g/dL Hematocrit 41.9 35.0 - PN SOFT 46.0 % Mean Corpuscular 90.1 80.0 - PN SOFT Volume 100.0 fL RDW 13.2 11.0 - PN SOFT 15.0 % Platelet Count 204 140 - 450 PN SOFT k/cmm Specimen Anatomical Collection Method Collection Time Receive d Time (Source) Location / / Volume Laterality 05/02/2018 3:25 PM 05/02/201 8 3:37 CDT PM CDT Narrative PN SOFT - 05/02/2018 3:41 PM CDT Performed at [facility], [address] [place] [address] CLIA number [id number] Tre Ding MD LAB_1 Performing Organization Address City/State/ZIP Code Phon e Number PN SOFT [address] [place] [address] documented in this encounter Visit Diagnoses Diagnosis Endometrial cancer (HRC) Malignant neoplasm of corpus uteri, exce pt isthmus Pre-op evaluation Preoperative examination, unspecified documented in this encounter Care Teams Director Of Donor Relations Relationship Specialty Start Date End Date Veronica Heredia DO PCP - General Family Practice 03/22/[address] [facility] [place] [address] documented as of this encounter
--- OUTSIDE RECORDS SUMMARY | 2022-08-15 14:54 | XMS_ITS | Encounter Summary ---
:1940 Author Organization [facility] Address [address] [place] [address] Care Team Providers Name Role Phone Veronica Heredia DO Primary Care Provider Reason for Visit Reason Comments Refill losartan (COZAAR) 100 MG tab let [Pharmacy Med Name: LOSARTAN POTASSIUM 100 MG TAB] Encounter Details Date Type Department Care Team Description 02/28/2018 Refill [facility] Veronica Heredia, DO Refill (losartan [address] [facility] [address] [facility] (COZAAR) [address] [Pharmacy Med Name: [place] [address] [place], [place] LOSARTAN POTASSIUM 100 [address]51 MG TAB]) [phone] (Wo rk) Social History Tobacco Use Types [...] encounter Nursing Notes Roseline Montes RN - 02/28/2018 12:54 PM CDT Renewed medication per medication refill protocol. Requested Prescriptions Pending Prescriptions Disp Refills losartan (COZAAR) 100 MG tablet [Pharmacy Med Name: LOSARTAN POTASSIUM 100 MG TAB] 90 Tab 3 Sig: TAKE 1 TAB BY MOUTH DAILY. Interface, Out Boonty Prov Query - 02/28/2018 2:34 AM CDT losartan (COZAAR) 100 MG tablet [Pharmacy Med Name: LOSARTAN POTASSIUM 100 MG TAB] Medication started: 07/19/2012 Last ordered by VERONICA HEREDIA M: 08/22/2017 (190 days ago) QTY: 90, Refills: 3, Sig: take 1 tab by mouth daily. (unchanged) -> The patient is requesting a renewal from a different pharmacy. -> Refill x 12 months, qty: 90, refills: 3 (until due for an office visit, Cr check and K check) Last qualifying visit: 02/11/2018 (with VERONICA HEREDIA) Next scheduled visit: None SBP: 132 mm Hg on 02/11/2018 DBP: 86 mm Hg on 02/11/2018 Cr: 0.8 mg/dL on 02/11/2018 K: 4.3 mEq/L on 02/11/2018 Powered by [employer], Reference: [id number], 02/28/2018 2:34:05 AM CDT, Pool: YURY JUAREZ REFILL ([id number]) documented in this encounter Plan of Treatment Not on filedocumented as of this encounter Visit Diagnoses Diagnosis Essential hypertension (HRC) Unspecified essential hypertension documented in this encounter Care Teams Long Term Care Phlebotomist Relationship Specialty Start Date End Date Veronica Heredia DO PCP - General Family Practice 03/22/17 [address] [facility] [place] [address] documented as of this encounter
--- OUTSIDE RECORDS SUMMARY | 2022-08-15 14:54 | XMS_ITS | Encounter Summary ---
:1940 Author Organization [facility] Address [address] [place] [address] Care Team Providers Name Role Phone Veronica Heredia DO Primary Care Provider Encounter Details Date Type Department Care Team Description 12/13/2017 Notes/Orders [facility] Veronica Heredia, [address] [facility] [address] [facility] [place] [address] [place], [place] [id number] (Wo rk) Social History Tobacco Use Types [...] documented as of this encounter Progress Notes Jillian Ruiz LPN - 12/13/2017 3:30 PM CST Updating chronic conditions registry flow sheet. Pt out of town SERVICE documented in this encounter Plan of Treatment Not on filedocumented as of this encounter Visit Diagnoses Not on filedocumented in this encounter Care Teams Farmworker General Relationship Specialty Start Date End Date Veronica Heredia DO PCP - General Family Practice 03/22/17 [address] [facility] [place] [address] documented as of this encounter
--- OUTSIDE RECORDS SUMMARY | 2022-08-15 14:54 | XMS_ITS | Encounter Summary ---
:1940 Author Organization [facility] Address [address] [place] [address] Care Team Providers Name Role Phone Veronica Heredia DO Primary Care Provider Reason for Visit Procedure/Equipment (Routine) - Incomplete Specialty Diagnoses / Procedures Referred By Contact Refer red To Contact Diagnoses Abdominal pain, unspecified abdominal location Right flank pain Mikey Vergara MD Procedures US Abd RUQ Organs [address] [facility] C[facility] [place] [address] Referral ID Status Reason Start Date Expiration Date Visits V isits Requested Authorized [id number] Incomplete 08/14/2017 11/13/2018 1 1 Encounter Details Date Type Department Care Team Description 08/16/2017 Imaging [facility] Ultrasound Mikey Vergara MD Abdominal pain, unspecified abdominal lo cation; [address] [facility] [address] [facility] Right flank pain [facility] [place] [address] [place] [phone] (Wo rk) Social History Tobacco Use Types [...] Priority Date/Time Associated Diagnosis Comme nts US ABD RUQ ORGANS Routine 08/16/2017 7:45 AM Abdominal pain, R esults for this CDT unspecified abdominal proced ure are in location the results Right flank pain section. documented in this encounter Results US Abd RUQ Organs (08/16/2017 7:45 AM CDT) Anatomical Region Laterality Modality Abdomen Ultrasound Specimen (Source) Anatomical Collection Method Collection Time Re ceived Time Location / / Volume Laterality 08/16/2017 7:10 AM CDT Impressions 08/16/2017 7:59 AM CDT IMPRESSION: Unremarkable right upper quadrant ultrasound within incidental benign-appearing right hepatic lobe cyst measuring maximum of 9 mm. Narrative 08/16/2017 7:59 AM CDT COMPARISON: ??None. FINDINGS: ?? Pancreas: Partially obscured by bowel ga s; visualized portions WNL. Liver: Contour appears unremarkable. The re is a small subcentimeter right hepatic lobe cyst measuring 9 x 8 x 7 mm with a intrinsic septation. This is not suspicious. Liver is otherwise unremarkable.. Gallbladder: No stones, sludge, or peric holecystic fluid. Sonographic Quiros's Sign: No. CBD: 0.5 cm. Right Kidney: Measures 10.5 x 4.5 x 4.6 cm. Appears unremarkable. Ascites: None. Procedure Note Pawel Suazo MD - 08/16/2017Format ting of this note might be different from the original. COMPARISON: None. FINDINGS: Pancreas: Partially obscured by bowel ga s; visualized portions WNL. Liver: Contour appears unremarkable. The re is a small subcentimeter right hepatic lobe cyst measuring 9 x 8 x 7 mm with a intrinsic septation. This is not suspicious. Liver is otherwise unremarkable.. Gallbladder: No stones, sludge, or peric holecystic fluid. Sonographic Quiros's Sign: No. CBD: 0.5 cm. Right Kidney: Measures 10.5 x 4.5 x 4.6 cm. Appears unremarkable. Ascites: None. IMPRESSION IMPRESSION: Unremarkable right upper lucrecia drant ultrasound within incidental benign-appearing right hepatic lobe cyst measuring maximum of 9 mm. Mikey Vergara MD RAD US documented in this encounter Visit Diagnoses Diagnosis Abdominal pain, unspecified abdominal lo cation Right flank pain Abdominal pain, unspecified site documented in this encounter Care Teams Log Buncher Relationship Specialty Start Date End Date Veronica Heredia DO PCP - General Family Practice 03/22/[address] [place] [address] documented as of this encounter
--- OUTSIDE RECORDS SUMMARY | 2022-08-15 14:54 | XMS_ITS | Encounter Summary ---
:1940 Author Organization [facility] Address [address] [place] [address] Care Team Providers Name Role Phone Veronica Heredia DO Primary Care Provider Reason for Visit Reason Comments CONSULT post deidre bleeding Consult/Transfer Care (Routine) - Closed Specialty Diagnoses / Procedures Referred By Contact Refer red To Contact Diagnoses PMB (postmenopausal bleeding) [place] [address] [place] [address] Referral ID Status Reason Start Date Expiration Date Visits Requ ested Visits Authorized [id number] Closed 02/11/2018 05/13/2019 1 1 Encounter Details Date Type Department Care Team Description 02/18/2018 Initial Consult Jas Melendez, Postmenop ausal bleeding Obstetrics/Gynecolog (Primary Dx) y [address] [address] [address] [place] [address] [phone] Social History Tobacco Use Types Packs/Day Years [...] occasion? Comment: Alcoholic Drinks/day: 1-2 x per 08/20/20 18 year Sex Assigned at Date Recorded Not on file documented as of this encounter Last Filed Vital Signs Vital Sign Reading Time Taken Comments Blood Pressure 168/97 02/18/2018 8:41 AM CDT Pulse 66 02/18/2018 8:41 AM CDT Temperature - - Respiratory Rate - - Oxygen Saturation - - Inhaled Oxygen Concentration - - Weight 91.2 kg (201 lb) 02/18/2018 8:41 AM CDT Height 162.6 cm (5' 4) 02/18/2018 8:41 AM CDT Body Mass Index 34.5 02/18/2018 8:41 AM CDT documented in this encounter Progress Notes Jas Adrian MD - 02/18/2018 8:40 AM CDT CLINIC PROGRESS NOTE DATE:02/18/2018 CHIEF COMPLAINT: Postmenopausal bleeding. SUBJECTIVE: Michele Angulo is a 77 y.o. No obstetric history on file. who presents today for evaluation of postmenopausal bleeding. This patient was actually here 10 years ago and had an endometrial biopsy. She has done no bleeding since then until a couple of days bleeding recently. She has no other symptoms. Allergies Allergen Reactions ??? Other PN: LW Other1: -IV DYE/ANAPHYLAXIS ??? Penicillins PN: LW Reaction: HIVES ??? Sulfa Antibiotics PN: LW Reaction: HIVES Patient Active Problem List Diagnosis ??? Essential hypertension (HRC) ??? Hyperlipidemia (HRC) ??? Esophageal reflux ??? Postmenopausal ??? Aspirin long-term use ??? H/O colonoscopy ??? BMI 35.0-35.9,adult ??? Calculus of kidney Current Outpatient Prescriptions Medication Sig ??? aspirin EC 81 MG enteric coated tablet Take 1 tablet by mouth daily (every 24 hours). ??? losartan (COZAAR) 100 MG tablet Take 1 Tab by mouth daily. ??? metoprolol succinate (TOPROL XL) 25 MG 24 hour release tablet Take 1 Tab by mouth daily. Take with Toprol XL 50 mg tab to equal 75 mg. ??? simvastatin (ZOCOR) 20 MG tablet Take 1 Tab by mouth daily. No current facility-administered medications for this visit. Past Medical History: Diagnosis Date ??? Aspirin long-term use 04/16/2015 ASA therapy 75-162 mg/day is recommended for primary CVD prevention because patient -Is female 57 years who have at least one additional major risk factor such as: -HTN -Dyslipdemia ??? Calculus of kidney right side diagnosed CT scan in [place] asymptomatic 04/18/2016 ??? H/O colonoscopy 2007 due 2018 04/16/2015 ??? Hyperlipidemia 07/12/2005 takes zocor ??? Hypertension 04/11/2003 takes atenolol cozaar ??? Obesity (HRC) 04/30/2006 LW Onset: ??? Postmenopausal 04/16/2015 resolved ??? Zoster Past Surgical History: Procedure Laterality Date ??? BUNIONECTOMY REVIEW OF SYSTEMS: na OBJECTIVE: BP (!) 168/97 (BP Cuff Size: Adult Large) Pulse 66 Ht 5' 4 (1.626 m) Wt 201 lb (91.2 kg) BMI 34.5 kg/m2 Pelvic- cervix there is a 1 cm typical looking cervical polyp. This is twisted off and submitted separately. Endometrial biopsy is carried out with a Pipelle type of device. The uterus is sounded to 7 cm and a scanty specimen was obtained. Bimanual exam was unremarkable. ASSESSMENT: ICD-10-CM 1. Postmenopausal bleeding N95.0 Clinic Obtained Tissue (endometrial biopsy specimen--complete paperform) Endomet Bx W/Wo Endocrv Bx-Sep Proc (17043) Biopsy Cervix, 1 or more, or Excision of Lesion [41980] PLAN: Follow up based on biopsy results. documented in this encounter Plan of Treatment Not on filedocumented as of this encounter Procedures Procedure Name Priority Date/Time Associated Diagnosis Comme nts CLINIC OBTAINED Routine 02/18/2018 9:50 AM Postmenopausal Resu lts for this ANATOMICAL CDT bleeding procedure are i n PATHOLOGY the results section. SURGICAL PATHELENA Routine 02/18/2018 7:00 AM Re sults for this NICOLLET CDT procedure are i n the results section. documented in this encounter Results Clinic Obtained Tissue (endometrial biopsy specimen--complete paper form) (02/18/2018 9:50 AM CDT) P athologist Signature CLINIC Received PN SOFT OBTAINED TISSUE Specimen Anatomical Collection Method Collection Time Receive d Time (Source) Location / / Volume Laterality 02/18/2018 9:50 AM 8 1:49 CDT PM CDT Narrative ALEC RAI - 02/18/2018 1:50 PM CDT Performed at [facility], [address] [place] [address] CLIA number [id number] Jas Adrian MD LAB_1 Performing Organization Address City/State/ZIP Code Phon e Number ALEC RAI [address] [place] [address] Pathology Report (02/18/2018 7:00 AM CDT) [facility] Method Time Signature Path: FINAL SURGICAL PATHOLOGY REPORT PN FREDI Pathology #: [id number] ? Date Obtained: 02/18/2018 ?Date Received: 02/18/2018 DIAGNOSIS: A. Cervix, polypectomy: ?? -Benign endocervical polyp. B. Endometrial biopsy: ?? -Scant inactive endometrium. ?AMARIS PEREZ MD ? (electronic signatur e) ? 02/19/2018 ??10:5 1 CLINICAL NOTES: None provided GROSS DESCRIPTION: A. ??The specimen is labeled cervical polyp and consists of a 0.9 x ?? 0.7 x 0.3 cm schofield polypoid tissue fragment. ??The specime n is filtered ?? and entirely submitted in one block. B. ??The specimen is labeled endometrial biopsy and consi sts of ?? multiple scant tissue fragments and blood-tinged mucus a ggregating ?? to 1 x 1 x 0.2 cm. ??The specimen is filtered and entire ly submitted ?? in one block. ? JENDE MICROSCOPIC DESCRIPTION: The microscopic examination has been performed. Performed at [facility], [facility] [place] [address] Specimen Anatomical Location Collection Method Collection Time Received Time (Source) / Laterality / Volume CERVICAL SWAB / 02/18/2018 7:00 8 7:00 Unknown AM CDT AM CDT ENDOMETRIAL 02/18/2018 7:00 02/18/2018 7 :00 STRUCTURE / Unknown AM CDT AM CDT Jas Adrian MD LAB_1 Performing Organization Address City/State/ZIP Code Phon e Number PN SOFT [address] [place] [address] [phone] documented in this encounter Visit Diagnoses Diagnosis Postmenopausal bleeding - Primary documented in this encounter Care Teams Scarf Gluer Relationship Specialty Start Date End Date Veronica Heredia DO PCP - General Family Practice 03/22/[address] [facility] [place] [phone] documented as of this encounter
--- OUTSIDE RECORDS SUMMARY | 2022-08-15 14:54 | XMS_ITS | Encounter Summary ---
:1940 Author Organization [facility] Address [address] [place] [address] Care Team Providers Name Role Phone Veronica Heredia DO Primary Care Provider Reason for Visit Reason Onset Date Comments Patient Calling Back 03/21/2018 Encounter Details Date Type Department Care Team Description 03/21/2018 Refill [facility] Veronica Heredia, Patient Calling Back [address] [facility] [address] [facility] [place] [address] [facility] [place] [address] [phone] (Wo rk) Social History Tobacco Use Types [...] Nursing Notes Jose Luis Jordan RN - 03/21/2018 2:13 PM CDT Further Assistance Needed on Refill from Clinician RN reviewed. Signed order needed. Requested medication needs an order signed by an authorized prescriber. Last qualifying visit within department on: 02/11/2018 (with VERONICA HEREDIA) Next scheduled visit within department: None Review pended order for accuracy. Sign. Close encounter. Requested Prescriptions Pending Prescriptions Disp Refills ??? metoprolol succinate (TOPROL XL) 50 MG 24 hour release tablet [Pharmacy Med Name: METOPROLOL SUCC ER 50 MG TAB] 90 Tab 3 Sig: TAKE 1 TAB BY MOUTH DAILY. DISCONTINUE ATENOLOL. Indiana Patel - 03/21/2018 1:57 PM CDT Patient is calling stating that she takes 50 mg medication with her 25 mg Metoprolol Succinate, for a total 75 mg dose . The Pharmacy does not have Rx for 50 mg , Patient has 5 pills on hand, Please advise as soon as possible. Interface, Out Surescripts Prov Query - 03/21/2018 1:02 PM CDT metoprolol succinate (TOPROL XL) 50 MG 24 hour release tablet [Pharmacy Med Name: METOPROLOL SUCC ER50 MG TAB] Medication started: 07/09/2017 Last ordered by VERONICA HEREDIA: 07/09/2017 (255 days ago) QTY: 90, Refills: 2, Sig: take 1 tab by mouth daily. (see comments) (changed) -> The requested strength (50 mg extended release oral tablet) was last ordered on 07/09/2017. The patient is taking 25 mg extended release oral tablet as of 08/22/2017. -> This medication was discontinued on 08/22/2017 by VERONICA HEREDIA. -> The patient is requesting a renewal from a different pharmacy. -> The requested sig has changed from the last order. -> Refill x 12 months (until due for an office visit) -> Calculate quantity and refills manually. They could not be estimated due to missing or unreadable information. Last qualifying visit: 02/11/2018 (with VERONICA HEREDIA) Next scheduled visit: None SBP: 158 mm Hg on 03/14/2018 DBP: 90 mm Hg on 03/14/2018 Powered by [employer], Reference: [id number], 03/21/2018 1:02:58 PM CDT, Pool: YURY JUAREZ REFILL ([id number]) documented in this encounter Plan of Treatment Not on filedocumented as of this encounter Visit Diagnoses Diagnosis Essential hypertension (HRC) Unspecified essential hypertension documented in this encounter Care Teams Surgical Manager Relationship Specialty Start Date End Date Veronica Heredia, DO PCP - General Family Practice 03/22/[address] [facility] [address] [place], [place] [address] documented as of this encounter
--- OUTSIDE RECORDS SUMMARY | 2022-08-15 14:54 | XMS_ITS | Encounter Summary ---
:1940 Author Organization [employer] Address [address] [place] [address] Care Team Providers Name Role Phone RoblesPan collinsaissatou Oliver DO Primary Care Provider Reason for Visit Reason Comments Surgery Scheduling Log Hysteroscopy D&C Encounter Details Date Type Department Care Team Description 04/10/2018 Telephone Jas Melendez MD Surgery Scheduling Log Obstetrics/Gynecolog y [address] [facility] (Hysteroscopy D&C) [address] [place] [address] [phone] Social History Tobacco Use Types Packs/Day Years [...] documented as of this encounter Nursing Notes Jr Travis - 04/11/2018 10:43 AM CDT Procedure has been scheduled. Jr Travis - 04/10/2018 4:48 PM CDT Called pt to schedule Hyst D&C with EL. Left message for her to call back. documented in this encounter Plan of Treatment Not on filedocumented as of this encounter Visit Diagnoses Not on filedocumented in this encounter Care Teams Advisory Services Associate Relationship Specialty Start Date End Date Veronica Heredia DO PCP - General Family Practice 03/22/17 [address] [facility] [place] [address] documented as of this encounter
--- OUTSIDE RECORDS SUMMARY | 2022-08-15 14:54 | XMS_ITS | Encounter Summary ---
:1940 Author Organization [employer] Address [address] [address] Care Team Providers Name Role Phone Veronica Heredia Primary Care Provider Reason for Visit Reason Comments VAGINAL BLEEDING Encounter Details Date Type Department Care Team Description 04/03/2018 Telephone Jas Melendez MD VAGINAL BLEEDING Obstetrics/Gynecolog y [address] [facility] [address] [place] [address] [place] [address] [place] [address] [phone] Social History Tobacco Use Types Packs/Day Years [...] as of this encounter Nursing Notes Ruma Clark RN - 04/22/2018 11:56 AM CDT Per Routing history detailed action lo04/09/2018 ??3:45 PM Done Jas Adrian MD This encounter closed. Ping Gilmore RN - 04/09/2018 1:49 PM CDT Patient calling again to speak with Dr. Adrian, advised message was routed high priority yesterday and that provider will RTC on , 04/11. No further questions. Greta Lebron RN - 04/08/2018 4:49 PM CDT Pt calling again. States she is getting nervous about the spotting. Michele Suazo RN - 04/08/2018 9:06 AM CDT Pt is calling again today with update. She continues to have light spotting. She will await call back with plan. Vandana Ram RN - 04/03/2018 11:32 AM CDT Reason for Call: Clinician input needed on symptom based concern. Next Steps: Document further recommendations and route to appropriate person or pool. Caller IS expecting a call back from Care Team. Additional Information: Pt saw you 03/14/18 for PMB. She notes intermittent light spotting 4 different days since then. Pt understands D&C is probable next step. Please advise. documented in this encounter Plan of Treatment Not on filedocumented as of this encounter Visit Diagnoses Not on filedocumented in this encounter Care Teams Bulk Delivery Driver Relationship Specialty Start Date End Date Veronica Heredia, PCP - General Family Practice 03/22/17 [address] [facility] [place] [address] documented as of this encounter
--- OUTSIDE RECORDS SUMMARY | 2022-08-15 14:54 | XMS_ITS | Encounter Summary ---
:1940 Author Organization [facility] Address [address] [facility] [place] [address] Care Team Providers Name Role Phone Veronica Heredia DO Primary Care Provider Encounter Details Date Type Department Care Team Description 08/14/2017 Lab Visit [facility] Abdominal pain, unspecified abdominal location; [address] [facility] His tory of gastroesophageal reflux (GERD) [place] [address] Social History Tobacco Use Types [...] Name Priority Date/Time Associated Diagnosis Comme nts H. PYLORI ANTIGEN, Routine 08/14/2017 1:45 Abdominal pain, Res ults for this STOOL PM CDT unspecified abdominal proced ure are in location the results History of section. gastroesophageal reflux (GERD) documented in this encounter Results H. Pylori Antigen, Stool (08/14/2017 1:45 PM CDT) P athologist Signature H Pylori Ag, Negative Negative PN SOFT Stl Comment: Performed at [facility], [address] [place] [address] ??[address] [place] Number [id number] Specimen Anatomical Collection Method Collection Time Receive d Time (Source) Location / / Volume Laterality 08/14/2017 1:45 PM 7 8:54 CDT PM CDT Mikey Vergara MD LAB_1 Performing Organization Address City/State/ZIP Code Phon e Number PN SOFT [address] [place] [address] documented in this encounter Visit Diagnoses Diagnosis Abdominal pain, unspecified abdominal lo cation History of gastroesophageal reflux (GERD ) Personal history of other diseases of di gestive system documented in this encounter Care Teams Tube Laser Operator Relationship Specialty Start Date End Date Veronica Heredia DO PCP - General Family Practice 03/22/17 [address] [facility] [place] [address] documented as of this encounter
--- OUTSIDE RECORDS SUMMARY | 2022-08-15 14:54 | XMS_ITS | Encounter Summary ---
:1940 Author Organization [employer] Address [address] [place] [address] Care Team Providers Name Role Phone RoblesVeronica collins Benito DO Primary Care Provider Reason for Visit Reason Comments BLOOD PRESSURE CHECK Encounter Details Date Type Department Care Team Description 08/29/2017 Nursing Visit [facility], Ja Mendoza Essential hypertension Medicine (Primary Dx) [address] [place] [address] Social History Tobacco Use Types [...] Sign Reading Time Taken Comments Blood Pressure 156/92 08/29/2017 8:32 AM CDT Pulse 71 08/29/2017 8:32 AM CDT Temperature - - Respiratory Rate - - Oxygen Saturation - - Inhaled Oxygen Concentration - - Weight - - Height - - Body Mass Index - - documented in this encounter Progress Notes Ernestina Murphy LPN - 08/29/2017 9:00 AM CDT Pt came in on the nurse schedule to get her b/p checked. Manual: 156/92 Pulse:71. She then wanted totry her automatic machine that she brought from home and she got 144/91. Pt declined to have an omron average done, pt also declined to follow up with her PCP she states that she's leaving for [place] soon and she will follow up with her doctor in [place]. Routing to PCP just as an FYI. documented in this encounter Plan of Treatment Not on filedocumented as of this encounter Visit Diagnoses Diagnosis Essential hypertension (HRC) - Primary Unspecified essential hypertension documented in this encounter Care Teams Registrar College [employer] Relationship Specialty Start Date End Date Veronica Heredia, PCP - General Family Practice 03/22/17 [address] [facility] [place] [address] documented as of this encounter
--- OUTSIDE RECORDS SUMMARY | 2022-08-15 14:54 | XMS_ITS | Encounter Summary ---
:1940 Author Organization [facility] Address [address] [place] [address] Care Team Providers Name Role Phone RobleskarinaVeronica DO Primary Care Provider Encounter Details Date Type Department Care Team Description 02/11/2018 Lab Visit [facility] Essential hypertension [address] [place] [address] Social History Tobacco Use Types [...] Associated Diagnosis Comme nts BASIC METABOLIC Routine 02/11/2018 12:35 Essential Results for this PANEL PM CDT hypertension procedure are i n the results section. documented in this encounter Results (ABNORMAL) Basic Metabolic Panel (02/11/2018 12:35 PM CDT) P athologist Signature Creatinine 0.80 0.55 - PN SOFT Serum 1.02 mg/dL Lab Glucose 103 (H) 70 - 100 PN SOFT mg/dL Comment: The stated glucose range is for the fast ing state. Non-fasting glucose range is 70-180 mg/d L CO2 23 22 - 31 mmol/L PN SOFT Chloride 107 98 - 109 mmol/L PN SOFT Potassium 4.3 3.5 - 5.2 mmol/L PN SOFT Sodium 141 136 - 145 mmol/L PN SOFT Blood Urea Nitrogen 16 9 - 26 mg/dL PN SOFT Calcium 9.6 8.4 - 10.4 mg/dL PN SOFT Est GFR Am >60 [...] Time (Source) Location / / Volume Laterality 02/11/2018 12:35 02/11/2018 3:24 PM CDT PM CDT Narrative PN SOFT - 02/11/2018 3:58 PM CDT Performed at [facility] [address] [place] [address] CLIA number [id number] Veronica Heredia DO LAB_1 Performing Organization Address City/State/ZIP Code Phon e Number PN SOFT [address] [place] [phone] documented in this encounter Visit Diagnoses Diagnosis Essential hypertension (HRC) Unspecified essential hypertension documented in this encounter Care Teams Verifier Operator Relationship Specialty Start Date End Date Veronica Heredia DO PCP - General Family Practice 03/22/17 [address] [facility] [place] [address] documented as of this encounter
--- OUTSIDE RECORDS SUMMARY | 2022-08-15 14:54 | XMS_ITS | Encounter Summary ---
:1940 Author Organization [facility] Address [address], [place] [address] Care Team Providers Name Role Phone Veronica Heredia DO Primary Care Provider Reason for Visit Reason Comments RESULTS, TEST Encounter Details Date Type Department Care Team Description 02/13/2018 Telephone [facility] Veronica Heredia, DO RESULTS, TEST [address] [facility] [address] [facility] [place] [address] [place], [place] [id number] (Wo rk) Social History Tobacco Use Types [...] encounter Nursing Notes Yamilka Jay LPN - 02/13/2018 5:47 PM CDT imformed patient of ultrasound results. Patient verbalized understanding and is ok with waiting until SundayFebruary 18 Future Appointments Provider Department Center 02/18/2018 8:40 AM Jas Adrian MD [facility] PN [facility] Veronica Heredia DO - 02/13/2018 2:22 PM CDT Please call with US result. Her endometrium does appear thickened as she and I had discussed in clinic and anticipated. I see that she has an appointment with gynecology on the , is she okay with waiting the 5 days or would she like me to change the urgency of this consult? documented in this encounter Plan of Treatment Not on filedocumented as of this encounter Visit Diagnoses Not on filedocumented in this encounter Care Teams Customer Service Professional Relationship Specialty Start Date End Date Veronica Heredia DO PCP - General Family Practice 03/22/17 [address] [facility] [place] [address] documented as of this encounter
--- OUTSIDE RECORDS SUMMARY | 2022-08-15 14:54 | XMS_ITS | Encounter Summary ---
:1940 Author Organization [employer] Address [address] [place] [address] Care Team Providers Name Role Phone Veronica Heredia DO Primary Care Provider Reason for Visit Reason Comments QUESTIONS, GENERAL Encounter Details Date Type Department Care Team Description 04/19/2018 Telephone Jas Melendez MD QUESTIONS, GENERAL Obstetrics/Gynecolog y [address] [facility] [address] [place] [address] [place] [address] [place] [address] [phone] Social History Tobacco Use Types Packs/Day Years [...] documented as of this encounter Nursing Notes Greta Lebron RN - 04/19/2018 11:13 AM CDT Pt asks if she should take her BP med the am of surgery. Discussed with Dillan and advised the ptto take it right when she gets up with 1 sip of water. Pt agrees to plan. documented in this encounter Plan of Treatment Not on filedocumented as of this encounter Visit Diagnoses Not on filedocumented in this encounter Care Teams Casing Splitter Relationship Specialty Start Date End Date Veronica Heredia DO PCP - General Family Practice 03/22/17 [address] [facility] [place] [address] documented as of this encounter
--- OUTSIDE RECORDS SUMMARY | 2022-08-15 14:54 | XMS_ITS | Encounter Summary ---
:1940 Author Organization [facility] Address [address] [place] [address] Care Team Providers Name Role Phone Veronica Heredia DO Primary Care Provider Reason for Referral Procedure/Equipment (Routine) - Incomplete Specialty Diagnoses / Procedures Referred By Contact Refer red To Contact Diagnoses Endometrial cancer (HRC) Pre-op evaluation Tre Ding MD Procedures XR Chest 2 Views [address] [address] Referral ID Status Reason Start Date Expiration Date Visits V isits Requested Authorized [id number] Incomplete 05/02/2018 08/01/2019 1 1 (Routine) - Incomplete Specialty Diagnoses / Procedures Referred By Contact Refer red To Contact Diagnoses Endometrial cancer (HRC) Tre Ding MD Procedures Case Request OR - Computer Game Designer Onc Surg: LAPAROSCOPIC ASSISTED TOTAL HYSTERECTOMY, BILATERAL SALPINGO-OOPHORECTOMY, POSSIBLE LYMPH NODE DISSECTION, POSSIBLE OPEN [address] [address] Referral ID Status Reason Start Date Expiration Date Visits V isits Requested Authorized [id number] Incomplete 05/02/2018 08/01/2019 1 1 Reason for Visit Reason Comments CONSULT Consult/Transfer Care (Routine) - Closed Specialty Diagnoses / Procedures Referred By Contact Refer red To Contact Diagnoses Endometrial cancer (HR[place] [address] [facility] [place] [address] Referral ID Status Reason Start Date Expiration Date Visits Requ ested Visits Authorized [id number] Closed 04/29/2018 07/29/2019 1 1 Encounter Details Date Type Department Care Team Description 05/02/2018 Initial Consult [facility] Tre Ding, Endom etrial cancer (HRC) (Primary Dx); Gynecologic Oncology MD Pre-[facility] [address] [facility] [address] [address] [place], [place] [address] [address] [facility] 5th Floor [phone] [place] [address] Social History Tobacco Use Types [...] Sign Reading Time Taken Comments Blood Pressure 158/80 05/02/2018 2:41 PM CDT Pulse - - Temperature - - Respiratory Rate - - Oxygen Saturation - - Inhaled Oxygen Concentration - - Weight 89.8 kg (198 lb) 05/02/2018 1:20 PM CDT Height 160.7 cm (5' 3.25) 05/02/2018 1:20 PM CDT Body Mass Index 34.8 05/02/2018 1:20 PM CDT documented in this encounter Progress Notes Tre Ding MD - 05/02/2018 2:30 PM CDT Follow Up Notes on Referred Patient Date: 05/02/2018 [place] [address] [facility] [place] [id number] RE: Michele Angulo : 1940 HEAVEN: 05/02/[address] Jas Adrian Michele Angulo is a 77 y.o. old woman with a diagnosis of EMCA G2. She is here today for treatment planning. HPI (Per Dr. Adrian): Michele Angulo is a 77 y.o. No obstetric history on file. who presents today for evaluation of postmenopausal bleeding. This patient was actually here 10 years ago and had an endometrial biopsy. She has done no bleeding since then until a couple of days bleeding recently. She has no other symptoms. 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 H/O colonoscopy 2007 due 201704/16/2015 ??? Hyperlipidemia 07/12/2005 takes zocor ??? Hypertension 04/11/2003 takes atenolol cozaar ??? Obesity (HRC) 04/30/2006 LW Onset: 12Ari05 ??? Postmenopausal 04/16/2015 resolved ??? Zoster Past Surgical History: Past Surgical History: Procedure Laterality Date ??? BUNIONECTOMY Health Maintenance: Last Pap Smear: 2016 NILM Last Mammogram: 2017 BIRADS 1 Last Colonoscopy: 2008 Current Medications: Micehle has a current medication list which includes the following prescription(s): aspirin ec, cholecalciferol, losartan, metoprolol succinate, metoprolol [...] History: The patient's family history is notable for . Family History Problem Relation Age of Onset [...] Cancer, Endometrial Negative Family History Physical Exam: Ht 5' 3.25 (1.607 m) Wt 198 lb (89.8 kg) BMI 34.8 kg/m2 General Appearance: healthy and alert, no [...] Vagina is smooth without nodularity or masses. Cervix appears normal and without lesions. Bimanual exam reveal no masses, nodularity or fullness. Recto-vaginal exam confirms these findings. Assessment: Michele is a 77 y.o. old woman with a diagnosis of EMCA G2. A total of 60 minutes was spent with the patient, 40 minutes of which were spent in counseling the patient and/or treatment planning. Plan: 1.) EMCA - EMCA - We have discussed the pathologic and clinical findings. I have recommended a hysterectomy and BSO followed by staging based on the intra- operative findings. We have had a comprehensive discussion regarding the the potential risks and benefits or surgery in this setting including but not limited to bleeding, infection and damage to nearby organs. I believe she is a candidate for laparoscopy, but she is prepared for the possibility that open surgery may be required. A the conclusion of this discussion, I have answered her questions to the best of my ability and believe she is making an informed decision. 2.) Genetic risk factors were assessed and the patient does not meet the qualifications for a referral. 3.) Labs and/or tests ordered include: Pre-operative labs. 4.) Health maintenance issues addressed today include: none. Thank you for allowing us to participate in the care of your patient. Sincerely, Tre Ding MD documented in this encounter Plan of Treatment Not on filedocumented as of this encounter Results XR Chest 2 Views (05/02/2018 3:38 PM CDT) Anatomical Region Laterality Modality Chest, Lung Computed Radiography Specimen (Source) Anatomical Collection Method Collection Time Re ceived Time Location / / Volume Laterality 05/02/2018 3:31 PM CDT Narrative 05/02/2018 3:47 PM CDT COMPARISON: ??08/04/2017. FINDINGS: ??No acute infiltrate or conso lidation evident. Some minimal linear opacity in the left midlung is consistent with atelectasis or scarring. No pneumothorax, pulmonary edema or pleural effusion evident. The cardiomediastinal silhouet te appears within normal limits. Procedure Note Ramírez Nguyen MD - 05/02/2018Formatt ing of this note might be different from the original. COMPARISON: 08/04/2017. FINDINGS: No acute infiltrate or consoli dation evident. Some minimal linear opacity in the left midlung is consistent with atelectasis or scarring. No pneumothorax, pulmonary edema or pleural effusion evident. The cardiomediastinal silhouette appears within normal limits. Tre Ding MD RAD GD (ABNORMAL) Comp Metabolic Panel (05/02/2018 3:25 PM CDT) [facility] Method Time Signature Aspartate 17 [...] - 05/02/2018 4:23 PM CDT Performed at [facility], [address] [place] [address] CLIA number [id number] Tre Ding MD LAB_1 Performing Organization Address City/[facility]/ZIP [facility] Phon e Number PN SOFT [address] [place] [address] [phone] CBC - Complete Blood Count W/Diff (05/02/2018 [...] - 05/02/2018 3:41 PM CDT Performed at [facility], [address] [place] [address] CLIA number [id number] Tre Ding MD LAB_1 Performing Organization Address [facility] Phon e Number PN SOFT [address] [place] [address] [phone] documented in this encounter Visit Diagnoses Diagnosis Endometrial cancer (HRC) - Primary Malignant neoplasm of corpus uteri, exce pt isthmus Pre-op evaluation Preoperative examination, unspecified Endometrial cancer (HRC) Malignant neoplasm of corpus uteri, exce pt isthmus Pre-op evaluation Preoperative examination, unspecified Endometrial cancer (HRC) Malignant neoplasm of corpus uteri, exce pt isthmus Pre-op evaluation Preoperative examination, unspecified documented in this encounter Care Teams Diathermy Equipment Repairer Relationship Specialty Start Date End Date Veronica Heredia DO PCP - General Family Practice 03/22/[address] [facility] [address] [place], [place] [address] documented as of this encounter
--- OUTSIDE RECORDS SUMMARY | 2022-08-15 14:54 | XMS_ITS | Encounter Summary ---
:1940 Author Organization [facility] Address [address] [place] [address] Care Team Providers Name Role Phone Veronica Heredia DO Primary Care Provider Reason for Visit Auth/Cert Specialty Diagnoses / Procedures Referred By Contact Refer red To Contact Diagnoses Post-menopausal bleeding Referral ID Status Reason Start Date Expiration Date Visits Requ ested Visits Authorized [id number] 1 1 Encounter Details Date Type Department Care Team Description 04/24/2018 Anesthesia Event [facility] 3900 Gemma Stone MD [address] [place], [place] [id number] [facility] Surgery Elva Noel APRN, CRNA [address] [place], [place] [id number] [place] [address] Anesthesia Record Procedure Summary Procedure Name Responsible Anesthesia Start Anesthesia Stop Anesthesiologist Time Time BHARATH AND Kashif Stevenson MD 04/24/18 1126 04/24/18 1215 CURETTAGE WITH HYSTEROSCOPY Events Date Time Event Comment 04/24/2018 1126 1126 An Start 1132 An Start Data 1132 Face Tent 1133 MD/ Present 1155 Quick Note Reflux of stomac h acid noted by patient coughing and bile appeari ng (10 ml emesis). Oropharynx suctioned. Propo fol discontinued. Sao2 drop to 90%. 1213 an stop data 1215 An Stop Care transferred . 1215 Care Handoff Note I discussed wi th [...] understanding of report Electr onically signed by Elva Noel APRN, CRNA Name Total lidocaine 1% PF injection (XYLOCAINE) 50 mg propofol 10 mg/mL for procedural sedation (aka diPRIva n) 98.04 mg ondansetron injection (ZOFRAN) 4 mg fentaNYL (SUBLIMAZE) injection 25-50 mcg 100 mcg labetalol injection (NORMODYNE) 10 mg lactated ringers infusion 800 mL Agents Name O2 Blood No blood administrations on file. Lines, Drains, and Airways Type Details Placement Removal Peripheral IV Placement Date: 04/24/18 1101 by 04/24/18 1331 b y 04/24/18; Placement Matilde Andrade Goldberg, Jennifer M, Time: 1101; RN RN Pre-existing: No; Inserted by?: RN; Size (Gauge): 20 G; Orientation: Left; Site Prep: ChloraPrep; Blood draw with insertion?: no; Patient Tolerance: Tolerated well; Met Standard Sterile Barrier Technique: Met Standard Sterile Barrier Technique; Removal Date: 04/24/18; Removal Time: 1331 Airway Placement Date: 04/24/18 1135 by 04/24/18 1205 b y 04/24/18; Placement Elva Noel, Aleida Noel, Time: 1135; QUALITY SYSTEMS ENGINEERIJEOMA APRN, CRNA Pre-existing: No; Placed By: FRANCHISE MANAGER; Airway Device: Oral pharyngeal airway; Difficulty: Atraumatic; Removal Date: 04/24/18; Removal Time: 1205; Transferred with Oxygen: Yes Incision/Surgical 04/24/18; 1146; #1; 04/24/18 1146 by 05/08/18 1333 by [facility], Site No; Vagina; 05/08/18; Winsome Neri Discon tinue 1333 RN documented in this encounter Social History Tobacco [...] documented as of this encounter Progress Notes Elva Noel APRN, CRNA - 05/30/2018 8:59 AM CDT Addendum created 05/30/18 0859 by Elva Noel APRN, CRNA Anesthesia Event edited, Procedure Event Log accessed documented in this encounter Miscellaneous Notes Anesthesia Postprocedure Evaluation - Kashif Stevenson MD - 04/24/2018 12:21 PM CDT [facility] Anesthesia Post-op Note Patient: Michele Angulo Post-Op Diagnosis: Post-menopausal bleeding Procedure Performed: Procedure(s): DILATATION AND CURETTAGE WITH HYSTEROSCOPY Anesthesia Type: MAC Post-op vital signs: BP (!) 145/76 Pulse 88 Temp 97.2 ??F (36.2 ??C) (Tympanic) Resp 20 Ht 5' 3.27 Wt 91.2 kg (201 lb 1 oz) SpO2 96% BMI 35.31 kg/m2 Pain Score: Presence Of Pain: denies Preferred Pain Scale: number (Numeric Rating Pain Scale) Pain Rating (0-10): Rest: 0 Post-op assessment: No anesthesia complication. Patient location: Phase 2 Airway Status: Patent Cardiovascular function: Satisfactory Hydration status: Satisfactory PONV: None Level of Consciousness: Awake Fully Participates Postop Assessment: Patient tolerated procedure well. Electronically signed by: Kashif Stevenson MD 04/24/2018 12:21 PM Anesthesia Preprocedure Evaluation - Kashif Stevenson MD - 04/24/2018 11:12 AM CDT [facility] Anesthesia Pre-op Evaluation Procedure: Procedure(s): DILATATION AND CURETTAGE WITH HYSTEROSCOPY HPI: 77 y.o. old female with Post-menopausal bleeding NPO Status: Last Fluid Intake Time: 0400 (sip c meds) Last Fluid Intake Date: 04/24/18 Last Food Intake Date: 04/23/18 Allergies Allergen Reactions ??? Contrast [Iodinated Diagnostic [...] kidney right side diagnosed CT scan in [place] asymptomatic 04/18/2016 ??? H/O colonoscopy 2007 due 201704/16/2015 ??? Hyperlipidemia 07/12/2005 takes zocor ??? Hypertension 04/11/2003 takes atenolol cozaar ??? Obesity (HRC) 04/30/2006 LW Onset: 45Zom20 ??? Postmenopausal 04/16/2015 resolved ??? Zoster Patient Active Problem List Diagnosis ??? Essential hypertension (HRC) ??? Hyperlipidemia (HRC) ??? Esophageal reflux ??? Postmenopausal ??? Aspirin long-term use ??? H/O colonoscopy ??? BMI 35.0-35.9,adult ??? Calculus of kidney ??? Post-menopausal bleeding Past Surgical History: Procedure Laterality Date ??? BUNIONECTOMY Outpatient Prescriptions Marked as Taking for the 04/24/18 encounter (Hospital Encounter) Medication Sig Dispense Refill [...] Tab by mouth daily. 90 Tab 3 Current Facility-Administered Medications Medication Dose Route Frequency ??? fentaNYL (SUBLIMAZE) injection 25-100 mcg 25-100 mcg Intravenous Q5MIN PRN ??? fentaNYL (SUBLIMAZE) injection 25-50 mcg 25-50 mcg Intravenous Q5MIN PRN ??? lactated ringers infusion 25 mL/hr Intravenous Continuous ??? meperidine (DEMEROL) injection 12.5 mg 12.5 mg Intravenous Q5MIN PRN ??? midazolam (VERSED) injection 1-2 mg 1-2 mg Intravenous Q5MIN PRN ??? NO pre-op antibiotics needed Miscellaneous Once ??? ondansetron (ZOFRAN) injection 4 mg 4 mg Intravenous Q4H PRN Labs: Lab Results Component Value Date/Time SODIUM 141 02/11/2018 12:35 PM K 4.3 02/11/2018 12:35 PM CHLORIDE 107 02/11/2018 12:35 PM BUN 16 02/11/2018 12:35 PM CREATININE 0.80 02/11/2018 12:35 PM GLUCOSE 103 (H) 02/11/2018 12:35 PM Lab Results Component Value Date/Time WBC 7.5 08/04/2017 09:25 PM HGB 12.8 08/04/2017 09:25 PM HCT 39.1 08/04/2017 09:25 PM PLTS 176 08/04/2017 09:25 PM INR (no units) Date Value 08/04/2017 1.0 No results found for: HCGQUANT Urine : Urine : Blood Bank: No results found for: ABORH, ABSCR EKG: No results found for this or any previous visit. Physical Exam: BP (!) 170/108 Pulse 72 Temp 97.3 ??F (36.3 ??C) (Temporal Artery) Resp 16 Ht 5' 3.27 Wt 91.2 kg (201 lb 1 oz) SpO2 95% BMI 35.31 kg/m2 Assessment/Plan: Review of Systems Patient has GERD. GERD controlled with medication. Patient is not a smoker. The patient denies alcohol use. Patient denies any recent URI. History of PONV: No. History of motion sickness: No. Patient denies any personal or family history of anesthesia complications (PONV). Exam Mental Status: Alert and oriented. Mallampati score: II (Two). Mouth opening: Normal Thyromental Distance: > 3 finger breadths and Normal Neck Extension: Full Neck Circumference > 40 cm?: No Current airway assessment:Normal Dentition: Normal. Cardiac Exam: Regular rate and rhythm. Respiratory Exam: Breath sounds clear to auscultation Assessment ASA Status: 2 . Plan Anesthesia type: MAC Induction: Intravenous and PropofolMaintenance: TIVA Postoperative pain management (PONV): Plan for postoperative opioid use PONV Risk Score Peds:0 PONV Risk Score Adult: 3 PONV Prophylaxis (planned):Ondansetron Anesthetic plan, risks, benefits and alternatives discussed with: Patient H&P Reviewed and Patient examined, no change observed IV access Antibiotics per surgery Electronically signed by: Kashif Stevenson MD 04/24/2018 11:12 AM documented in this encounter Plan of Treatment Not on filedocumented as of this encounter Visit Diagnoses Not on filedocumented in this encounter Administered Medications Inactive Administered Medications - up to 3 most recent administrations Medication Order MAR Action Action Date Dose Rate Site fentaNYL (SUBLIMAZE) injection Given 04/24/2018 11:40 AM CDT 50 mcg 25-50 mcg 25-50 mcg, Intravenous, [id number], Other, Moderate to Severe Pain (pain score [...] Given 04/24/2018 11:32 AM CDT 50 mcg labetalol (NORMODYNE) injection Given 04/24/2018 11:55 AM CDT 10 mg Starting on Sun04/24/18 at 1155, Until Sun04/24/18 at 1215 lactated ringers infusion Started 04/24/2018 11:25 AM CDT Intravenous, Starting on Sun04/24/18 at 1125 lidocaine (XYLOCAINE) 1 % injection Given 04/24/2018 11:40 AM CDT 50 mg Starting on Sun04/24/18 at 1140 ondansetron (ZOFRAN) injection Given 04/24/2018 11:40 AM CDT 4 mg Intravenous, Starting on Sun04/24/18 at 1140, Until Sun04/24/18 at 1215 propofol (aka diPRIvan) Rate/Dose 04/24/2018 75 mcg/kg/min 41.04 injection Change 11:45 AM CDT mL/hr Intravenous, Starting on Sun04/24/18 at 1140 Started 04/24/2018 11:40 AM CDT 50 mcg/kg/min 27.36 mL/hr documented in this encounter Care Teams Gas Meter Repair Supervisor Relationship Specialty Start Date End Date Veronica Heredia DO PCP - General Family Practice 03/22/17 [address] [facility] [place] [address] documented as of this encounter
--- OUTSIDE RECORDS SUMMARY | 2022-08-15 14:54 | XMS_ITS | Encounter Summary ---
:1940 [address] [facility] Address [address] [place] [address] Care Team Providers Name Role Phone Veronica Heredia DO Primary Care Provider Reason for Visit Procedure/Equipment (Routine) - Incomplete Specialty Diagnoses / Procedures Referred By Contact Refer red To Contact Diagnoses Endometrial cancer (HRC) Pre-op evaluation Tre Ding MD Procedures XR Chest [address] [facility] [address] [place], [place] [address] Referral ID Status Reason Start Date Expiration Date Visits V isits Requested Authorized [id number] Incomplete 05/02/2018 08/01/2019 1 1 Encounter Details Date Type Department Care Team Description 05/02/2018 [facility] 39[address] Brendon Ding MD Endometrial cancer ([facility]); Radiology [address] Pre-op evaluation [address] [facility] [address] [place] [address] [phone] (Wo rk) Social History Tobacco Use Types [...] documented as of this encounter Progress Notes Yuli Mcgovern - 05/14/2018 11:[address] Ding aware of results. documented in this encounter Plan of Treatment Not on filedocumented as of this encounter Procedures Procedure Name Priority Date/Time Associated Diagnosis Comme nts XR CHEST 2 VIEWS Routine 05/02/2018 3:38 PM Endometrial cancer Results for this CDT (HRC) procedure are in Pre-op evaluation the result s section. documented in this encounter Results XR Chest 2 Views [...] normal limits. Tre Ding MD RAD GD documented in this encounter Visit Diagnoses Diagnosis Endometrial cancer (HRC) Malignant neoplasm of corpus uteri, exce pt isthmus Pre-op evaluation Preoperative examination, unspecified documented in this encounter Care Teams Knuckler Relationship Specialty Start Date End Date Veronica Heredia DO PCP - General Family Practice 03/22/17 [address] [facility] [place] [address] documented as of this encounter
--- OUTSIDE RECORDS SUMMARY | 2022-08-15 14:54 | XMS_ITS | Encounter Summary ---
:1940 Author Organization [facility] Address [address] [place] [address] Care Team Providers Name Role Phone Veronica Heredia DO Primary Care Provider Reason for Referral Consult/Transfer Care (Routine) - Closed Specialty Diagnoses / Procedures Referred By Contact Refer red To Contact Diagnoses Endometrial cancer (HRC) [place] [address] [facility] [place] [address] Referral ID Status Reason Start Date Expiration Date Visits Requ ested Visits Authorized [id number] Closed 04/29/2018 07/29/2019 1 1 Scheduling Instructions Your provider has recommended an appoint ment with [facility]. You may call [phone] to schedule your appoi ntment. If you do not schedule an appointment within the next 1 to 3 business days, we will call you to help arrange your appointment. We suggest you call your [facility] insurance company about your coverage and benefits for this appointment. Encounter Details Date Type Department Care Team Description 04/29/2018 [facility] Obstetrics/[place] [address] [facility] [address] [facility] [place] [address] [place] [address] (Wo rk) Social History Tobacco Use Types [...] documented as of this encounter Progress Notes Jas Adrian MD - 04/29/2018 4:11 PM CDT Discussed diagnosis with patient. Automobile Locator-onc consult placed. documented in this encounter Plan of Treatment Scheduled Referrals Name Type Priority Associated Diagnoses Order S chedule Automobile Locator Oncology Order Referral Routine Endometrial cancer (HR C) Ordered: 04/29/2018 documented as of this encounter Visit Diagnoses Diagnosis Endometrial cancer (HRC) - Primary Malignant neoplasm of corpus uteri, exce pt isthmus documented in this encounter Care Teams Motor Expert Relationship Specialty Start Date End Date Veronica Heredia DO PCP - General Family Practice 03/22/17 [address] [facility] [place] [address] documented as of this encounter
--- OUTSIDE RECORDS SUMMARY | 2022-08-15 14:54 | XMS_ITS | Encounter Summary ---
:1940 Author Organization [facility] Address [address] [place] [address] Care Team Providers Name Role Phone Veronica Heredia DO Primary Care Provider Reason for Referral (Routine) - Incomplete Specialty Diagnoses / Procedures Referred By Contact Refer red To Contact Diagnoses Post-menopausal bleeding Jas Adrian MD Procedures Case Request OR - Gynecologic Surg: DILATATION AND CURETTAGE WITH HYSTEROSCOPY [address] [facility] [id number] Referral ID Status Reason Start Date Expiration Date Visits V isits Requested Authorized [id number] Incomplete 04/10/2018 07/10/2019 1 1 Encounter Details Date Type Department Care Team Description 04/10/2018 Prep for Surgery Jas Melendez, Post-men opausal Obstetrics/Gynecolog MD bleeding (Primary Dx) y [address] [place] [address] [phone] Social History Tobacco Use Types Packs/Day Years [...] as of this encounter Visit Diagnoses Diagnosis Post-menopausal bleeding - Primary Postmenopausal bleeding documented in this encounter Care Teams Cemetery Manager Relationship Specialty Start Date End Date Veronica Heredia DO PCP - General Family Practice 03/22/17 [address] [facility] [place] [address] documented as of this encounter
--- OUTSIDE RECORDS SUMMARY | 2022-08-15 14:54 | XMS_ITS | Encounter Summary ---
:1940 Author Organization [facility] Address [address] [place] [address] Care Team Providers Name Role Phone RobleskarinaVeronica DO Primary Care Provider Encounter Details Date Type Department Care Team Description 08/29/2017 Lab Visit [facility] Essential hypertension [address] [place] [address] Social History Tobacco Use Types [...] Associated Diagnosis Comme nts BASIC METABOLIC Routine 08/29/2017 8:07 AM Essential Result s for this PANEL CDT hypertension procedure are i n the results section. documented in this encounter Results (ABNORMAL) Basic Metabolic Panel (08/29/2017 8:07 AM CDT) P athologist Signature Creatinine 0.96 0.55 - PN [...] - 08/29/2017 9:39 AM CDT Performed at [facility], [address] [place] [address] CLIA number [id number] Veronica Heredia DO LAB_1 Performing Organization Address City/State/ZIP Code Phon e Number PN SOFT [address] [place] [address] [phone] documented in this encounter Visit Diagnoses Diagnosis Essential hypertension (HRC) Unspecified essential hypertension documented in this encounter Care Teams Record Press Operator Relationship Specialty Start Date End Date Veronica Heredia DO PCP - General Family Practice 03/22/17 [address] [facility] [place] [address] documented as of this encounter
--- OUTSIDE RECORDS SUMMARY | 2022-08-15 14:54 | XMS_ITS | Encounter Summary ---
:1940 Author Organization [facility] Address [address] [place] [address] Care Team Providers Name Role Phone Veronica Heredia DO Primary Care Provider Reason for Visit Reason Comments Refill metoprolol succinate (TOPROL XL) 50 MG 24 hour release tablet [Pharmacy Med Name: METOPROLOL SUCC ER 50 MG TAB] Encounter Details Date Type Department Care Team Description 03/15/2018 Refill [facility] Veronica Heredia, DO Refill (metoprolol [address] [facility] [address] [facility] succinate (TOPROL XL) [address] [place] 24 [place] [address] [place], [place] tablet [Pharmacy Med [phone] [address] Name: METOPROLOL SUCC ER [phone] (Wo rk) 50 MG TAB]) Social History [...] encounter Nursing Notes Arash Jordan RN - 03/19/2018 9:39 AM CDT Requested Prescriptions Refused Prescriptions Disp Refills ??? metoprolol succinate (TOPROL XL) 50 MG 24 hour release tablet [Pharmacy Med Name: METOPROLOL SUCC ER 50 MG TAB] 90 Tab Sig: TAKE 1 TAB BY MOUTH DAILY. DISCONTINUE ATENOLOL. Refused By: ARASH JORDAN Reason for Refusal: Med replaced or stopped Interface, Out Surescripts Prov Query - 03/15/2018 2:35 AM CDT metoprolol succinate (TOPROL XL) 50 MG 24 hour release tablet [Pharmacy Med Name: METOPROLOL SUCC ER50 MG TAB] Medication started: 07/09/2017 Last ordered by VERONICA HEREDIA: 07/09/2017 (249 days ago) QTY: 90, Refills: 2, Sig: take 1 tab by mouth daily. (see comments) (changed) -> The requested strength (50 mg extended release oral tablet) was last ordered on 07/09/2017. The patient is taking 25 mg extended release oral tablet as of 08/22/2017. -> This medication was discontinued on 08/22/2017 by VERONICA HEREDIA. -> The requested sig has changed from the last order. -> Refill x 12 months (until due for an office visit) -> Calculate quantity and refills manually. They could not be estimated due to missing or unreadable information. Last qualifying visit: 02/11/2018 (with VERONICA HEREDIA) Next scheduled visit: None SBP: 158 mm Hg on 03/14/2018 DBP: 90 mm Hg on 03/14/2018 Powered by Vindi, Reference: [id number], 03/15/2018 2:35:18 AM CDT, Pool: YURY FP REFILL ([id number]) documented in this encounter Plan of Treatment Not on filedocumented as of this encounter Visit Diagnoses Not on filedocumented in this encounter Care Teams Latex Fashions Designer Relationship Specialty Start Date End Date Veronica Heredia, PCP - General Family Practice 03/22/17 [address] [facility] [place] [address] documented as of this encounter
--- OUTSIDE RECORDS SUMMARY | 2022-08-15 14:54 | XMS_ITS | Encounter Summary ---
:1940 Author Organization Formerly [facility], later [facility] Address [address] [facility] [address] Care Team Providers Name Role Phone Veronica Heredia DO Primary Care Provider Reason for Referral Consult/Transfer Care (Routine) - Closed Specialty Diagnoses / Procedures Referred By Contact Refer red To Contact Diagnoses PMB (postmenopausal [place] [address] [facility] r [place] [address] Referral ID Status Reason Start Date Expiration Date Visits Requ ested Visits Authorized [id number] Closed 02/11/2018 05/13/2019 1 1 Scheduling Instructions Your provider has recommended an appoint ment with [facility]. You may call [phone] to schedule your appointment. If you do not schedule an appointment within the next 1 to 3 business days, we will call you to help arrange your appointment. We sugges t you call your health insurance company about your coverage and benefits for thi s appointment. Procedure/Equipment (Routine) - Incomplete Specialty Diagnoses / Procedures Referred By Contact Refer red To Contact Diagnoses PMB (postmenopausal bleeding) Veronica Heredia [place] [address] [facility] [place] [address] Referral ID Status Reason Start Date Expiration Date Visits V isits Requested Authorized [id number] Incomplete 02/11/2018 05/13/2019 1 1 Reason for Visit Reason Comments Bleeding, Postmenopausal Encounter Details Date Type Department Care Team Description 02/11/2018 Office Visit Sawyer Hernandez Veronica Heredia, PMB (post menopausal bleeding) (Primary Dx); Medicine DO Essential hypertension [address] [employer] [address] [facility] [place] [address] [place] [phone] Social History Tobacco Use Types Packs/Day Years [...] Sign Reading Time Taken Comments Blood Pressure 132/86 02/11/2018 11:51 AM CDT Pulse 66 02/11/2018 11:51 AM CDT Temperature - - Respiratory Rate - - Oxygen Saturation - - Inhaled Oxygen Concentration - - Weight 91.6 kg (202 lb) 02/11/2018 11:51 AM CDT Height - - Body Mass Index 34.67 08/04/2017 8:39 PM CDT documented in this encounter Progress Notes Veronica Heredia DO - 02/11/2018 12:00 PM CDT CHIEF COMPLAINT: Chief Complaint Patient presents with ??? Bleeding, Postmenopausal SUBJECTIVE : This is a 77 y.o. female patient presents for concern regarding postmenopausal bleeding. She noticed2 days ago blood with wiping and then place a tampon and remove this which also had blood and then yesterday had a small blood clot which past. She has no pelvic pain or changes in vaginal discharge. No injury to the area. She has had postmenopausal bleeding before, 10 years ago. At that time she did have imaging and biopsy which were all negative. This is her 1st recurrence of postmenopausal bleeding. No family history of gynecologic malignancy. She feels well. Exercising daily walking at least 2-1/2 miles a day. She just returned to [place] 3 weeks ago from [place] where she spends the winter. She denies urinary or GI symptoms. History of hypertension, well controlled, due for lab assessment. PAST MEDICAL HISTORY : Patient Active Problem [...] Reaction: HIVES OBJECTIVE : Vital Signs: BP 132/86 (BP Location: Right Arm, BP Cuff Size: Adult Regular) Pulse 66 Wt 202 lb (91.6 kg) BMI 34.67 kg/m2 Gen.: Alert, cooperative in no acute [...] lesions on exposed skin. Neurologic: Alert, oriented. ASSESSMENT/PLAN: ICD-10-CM 1. PMB (postmenopausal bleeding) N95.0 US Pelvic Complete W EV Ob-Contracts Administrator Consult 2. Essential hypertension (HRC) I10 Basic Metabolic Panel 1. Obtain pelvic ultrasound and automobile and property underwriter consult for endometrial biopsy. 2. Monitoring labs, HTN well controlled. 3. AJ for DEXA recently completed in [place]. 4. RTC prn and q 6 months. This was dictated using a voice recognition program, typographical and sound like errors may occur. documented in this encounter Plan of Treatment Scheduled Referrals Name Type Priority Associated Diagnoses Order S chedule Ob-Contracts Administrator Consult Referral Routine PMB (postmenopausal bleedi ng) Ordered: 02/11/2018 documented as of this encounter Results US Pelvic Complete W [...] neoplasia by ultrasound, requires clinical correlation. Veronica Heredia DO RAD US (ABNORMAL) Basic Metabolic Panel (02/11/2018 12:35 PM CDT) athologist Signature Creatinine 0.80 0.55 - PN [...] m2 NOTE: ??Choose the eGFR result above judith ropriate for the race of the patient. Specimen Anatomical Collection Method Collection Time Receive d Time (Source) Location / / Volume Laterality 02/11/2018 12:35 02/11/2018 3:24 PM CDT PM CDT Narrative PN SOFT - 02/11/2018 3:58 PM CDT Performed at , [address] [place] [address] CLIA number [id number] Veronica Heredia DO LAB_1 Performing Organization Address City/State/ZIP Code Phon e Number PN SOFT [address] [facility] [facility] [place] [address] [phone] documented in this encounter Visit Diagnoses Diagnosis PMB (postmenopausal bleeding) - Primary Postmenopausal bleeding Essential hypertension (HRC) Unspecified essential hypertension Essential hypertension (HRC) Unspecified essential hypertension PMB (postmenopausal bleeding) Postmenopausal bleeding documented in this encounter Care Teams Excellence Consultant Relationship Specialty Start Date End Date Veronica Heredia DO PCP - General Family Practice 03/22/[address] [address] [facility] [place] [phone] documented as of this encounter
--- OUTSIDE RECORDS SUMMARY | 2022-08-15 14:55 | XMS_ITS | Encounter Summary ---
:1940 Author Organization [employer] Address [address], [place] [address] Care Team Providers Name Role Phone RoblesVeronica collins Benito SINGH Primary Care Provider Reason for Visit Reason Onset Date Comments Provider Return Call Request 08/06/2017 Encounter Details Date Type Department Care Team Description 08/06/2017 Telephone Wallace Larson Provide r Return Call Medicine MD Request [id number] [place] [address] [place] [phone] Social History Tobacco Use Types Packs/Day Years [...] encounter Nursing Notes Priscilla Mas RN - 08/06/2017 9:46 AM CDT Informed Pt of note below. Cancelled Stress test. Patient verbalized understanding and agrees with plan. Wallace Johansen MD - 08/06/2017 9:43 AM CDT Would hold on stress test for now, proceed with resting echo. Priscilla Mas RN - 08/06/2017 9:[address] Kyung Queenist ED on 08/04- I will schedule her for an out patient stress test as she is female and symptoms may be atypical for ACS, although again I have a low suspicion. All results, discussed, all questions answered. She was comfortable with this plan, indications for return were given, and will be discharged from the emergency center. Pt also was started on pepcid and does verbalize improvement of bloating since starting this medication. T Wallace Johansen MD - 08/06/2017 9:23 AM CDT Who ordered the stress test and for what indication? Priscilla Cary RN - 08/06/2017 9:17 AM CDT Reason for Call: Requesting change in treatment plan. and Clinician input needed on symptom based concern. Next Steps: Document further recommendations and route to appropriate person or pool. Caller IS expecting a call back from Care Team. Additional Information: Please advise. Pt asking if she should have stress test done, scheduled for 08/07? Echocardiogram? Pt was in clinic for ED 08/01 f/u 08/03. Back to ED on 08/04-see notes and give recommendations. Future Appointments Date Time Provider Department Center 08/07/2017 11:00 AM SE16 [facility], [facility] ECHO [facility] ECHO PN [facility] 08/08/2017 9:30 AM METH VL GEN US 5 [facility] VASC PN [facility] 08/08/2017 11:00 AM ECHO20 [facility] ECHO, [facility] ECHO [facility] ECHO PN [facility] 08/09/2017 9:00 AM CARLS US 1 [facility] US PN [facility] 08/09/2017 10:00 AM Nurse, Ja Imed CARLS IMED PN [facility] Yazmin Reinoso - 08/06/2017 7:55 AM CDT Pt is requesting a call from Dr Johansen or his nurse today, in regards to some tests that were orderedby Dr Johansen, and the [facility] ER provider after her appt with Dr Johansen documented in this encounter Plan of Treatment Not on filedocumented as of this encounter Visit Diagnoses Not on filedocumented in this encounter Care Teams Director Retirement Relationship Specialty Start Date End Date Veronica Heredia DO PCP - General Family Practice 03/22/17 [address] [facility] [place] [address] documented as of this encounter
--- OUTSIDE RECORDS SUMMARY | 2022-08-15 14:55 | XMS_ITS | Encounter Summary ---
:1940 Author Organization [employer] Address [address] [place] [address] Care Team Providers Name Role Phone Veronica Heredia DO Primary Care Provider Reason for Visit Reason Onset Date Comments MEDICATION CHECK 08/11/2017 Encounter Details Date Type Department Care Team Description 08/11/2017 Nurse Triage Gabe Hernandez Veronica Heredia, DO MEDICATION CHECK Medicine [address] [place] [address] [place] [address] [place] [address] [phone] (Wo rk) Social History Tobacco Use Types [...] documented as of this encounter Nursing Notes Brenna Bates RN - 08/13/2017 8:16 AM CDT Pt contacted and informed of recommendations below. Pt verbalizes understanding, states she stopped HCTZ and is feeling much better, B/P has been around 120/70 since. Pt scheduled a f/u appt with PCP for 08/22, will call back if has any concerns/questions. Chris Loza MD - 08/13/2017 7:15 AM CDT Recommend clinic follow up to assess BP in 2-4 weeks with PCP. If HCTZ causing lightheadedness / dizziness reasonable to hold until seen by PCP. Please assist in scheduling. Dr. Loza, covering provider for Dr. Heredia. Ruma Calderon RN - 08/11/2017 9:04 AM CDT Reason for Call: Dr. Heredia- update on HCTZ 1.25 mg - reports adverse side effect. Reason for Disposition ??? [1] MODERATE dizziness (e.g., interferes with normal activities) AND [2] has been evaluated by physician for this Protocols used: DIZZINESS - [id number] Patient calls . She started a new medication HCTZ 1.25 mg on 08/09. Day one no adverse side effects.Day 2 she experienced ,extreme dizziness, lasted approximate 3 minutes then resolved. Presently no dizziness. She took her medications at 6:30a then took her vitals At 6:45am= 132/98 p 75 , 8:40 am 1 08/71/ p 84. She will hold the medication until speak with you. documented in this encounter Plan of Treatment Not on filedocumented as of this encounter Visit Diagnoses Not on filedocumented in this encounter Care Teams Cut Lace Machine Operator Relationship Specialty Start Date End Date Veronica Heredia, DO PCP - General Family Practice 03/22/17 [address] [facility] [place] [address] documented as of this encounter
--- OUTSIDE RECORDS SUMMARY | 2022-08-15 14:55 | XMS_ITS | Encounter Summary ---
:1940 [facility] Address [address] [place] [address] Care Team Providers Name Role Phone Veronica Heredia DO Primary Care Provider Reason for Referral (Routine) - Closed Specialty Diagnoses / Procedures Referred By Contact Refer red To Contact Diagnoses Abdominal discomfort Palpitations Upper back pain on left side Chioma Luciano MD Procedures Stress Echocardiogram [address] [place] [address] Referral ID Status Reason Start Date Expiration Date Visits Requ ested Visits Authorized [id number] Closed 08/05/2017 11/04/2018 1 1 Procedure/Equipment (Routine) - Incomplete Specialty Diagnoses / Procedures Referred By Contact Refer red To Contact Procedures Chioma Luciano MD XR Chest 2 Views [address] [place] [address] Referral ID Status Reason Start Date Expiration Date Visits V isits Requested Authorized [id number] Incomplete 08/04/2017 11/03/2018 1 1 (Routine) - Closed Specialty Diagnoses / Procedures Referred By Contact Refer red To Contact Procedures Chioma Luciano MD Continuous Vital Signs: [address] [place] [address] Referral ID Status Reason Start Date Expiration Date Visits Requ ested Visits Authorized [id number] Closed 08/04/2017 11/03/2018 1 1 (Routine) - Closed Specialty Diagnoses / Procedures Referred By Contact Refer red To Contact Procedures Sonu Tafoya MD ECG 12 Lead Outpatient: [address] Obtain EKG within 10 minutes [place] [address] Referral ID Status Reason Start Date Expiration Date Visits Requ ested Visits Authorized [id number] Closed 08/04/2017 11/03/2018 1 1 Reason for Visit Reason Comments Chest Pain Encounter Details Date Type Department Care Team Description 08/04/2017 - Emergency [facility] Emergency Chioma Luciano A bdominal discomfort; 08/05/2017 [place] Palpitations; [address] Upper [place] [id number] [phone] Social History Tobacco Use Types Packs/Day Years [...] Sign Reading Time Taken Comments Blood Pressure 171/89 08/05/2017 12:51 AM CDT Pulse 79 08/05/2017 12:51 AM CDT Temperature 36.6 ??C (97.8 ??F) 08/04/2017 8:39 PM CDT Respiratory Rate 20 08/04/2017 8:39 PM CDT Oxygen Saturation 94% 08/05/2017 12:51 AM CDT Inhaled Oxygen Concentration - - Weight 90.3 kg (199 lb) 08/04/2017 8:39 PM CDT Height 162.6 cm (5' 4) 08/04/2017 8:39 PM CDT Body Mass Index 34.16 08/04/2017 8:39 PM CDT documented in this encounter Discharge Instructions Discharge InstructionsChioma Luciano MD - 08/05/2017 12:40 AM CDT Images from the original note were not included. Abdominal Pain: Care Instructions Your Care Instructions Abdominal pain has many possible causes. Some aren't serious and get better on their own in a few days. Others need more testing and treatment. If your pain continues or gets worse, you need to be rechecked and may need more tests to find out what is wrong. You may need surgery to correct the problem. Don't ignore new symptoms, such as fever, nausea and vomiting, urination problems, pain that gets worse, and dizziness. These may be signs of a more serious problem. Your doctor may have recommended a follow-up visit in the next 8 to 12 hours. If you are not gettingbetter, you may need more tests or treatment. The doctor has checked you carefully, but problems can develop later. If you notice any problems or new symptoms, get medical treatment right away. Follow-up care is a figueroa part of your treatment and safety. Be sure to make and go to all appointments, and call your doctor if you are having problems. It's also a good idea to know your test results and keep a list of the medicines you take. How can you care for yourself at home? ?? Rest until you feel better. ?? To prevent dehydration, drink plenty of fluids, enough so that your urine is light yellow or clear like water. Choose water and other caffeine-free clear liquids until you feel better. If you have kidney, heart, or liver disease and have to limit fluids, talk with your doctor before you increase the amount of fluids you drink. ?? If your stomach is upset, eat mild foods, such as rice, dry toast or crackers, bananas, and applesauce. Try eating several small meals instead of two or three large ones. ?? Wait until 48 hours after all symptoms have gone away before you have spicy foods, alcohol, and drinks that contain caffeine. ?? Do not eat foods that are high in fat. ?? Avoid anti-inflammatory medicines such as aspirin, ibuprofen (Advil, Motrin), and naproxen (Aleve). These can cause stomach upset. Talk to your doctor if you take daily aspirin for another health problem. When should you call for help? Call 911 anytime you think you may need emergency care. For example, call if: ?? You passed out (lost consciousness). ?? You pass maroon or very bloody stools. ?? You vomit blood or what looks like coffee grounds. ?? You have new, severe belly pain. Call your doctor now or seek immediate medical care if: ?? Your pain gets worse, especially if it becomes focused in one area of your belly. ?? You have a new or higher fever. ?? Your stools are black and look like tar, or they have streaks of blood. ?? You have unexpected vaginal bleeding. ?? You have symptoms of a urinary tract infection. These may include: ?? Pain when you urinate. ?? Urinating more often than usual. ?? Blood in your urine. ?? You are dizzy or lightheaded, or you feel like you may faint. Watch closely for changes in your health, and be sure to contact your doctor if: ?? You are not getting better after 1 day (24 hours). Where can you learn more? 1. Go to [facility] or [employer]. 2. Enter E907 in the search box. Current as of: January 22, 2017 Content Version: 11.3 ?? 9139-5286 [employer]. Back Pain Initial Visit There are many ways to treat back pain. Simply returning to normal activities or exercising can be effective in most cases. Activity Activity is the figueroa to recovery. It can help prevent back problems from coming back. It???s important to keep moving, even when you have pain. Avoid activities or positions that greatly increase the pain Start walking every day as soon as you can. Add other activities to your routine, such as swimming and biking. They may also provide good motion to the painful areas. Exercise consistently. Remember that it???s ok to work hard at this in spite of some discomfort. Recent studies show that bed rest is not needed for most back problems. In fact, staying in bed can worsen symptoms and delay recovery. What is helpful is moderate, steadily increasing activity that doesn???t make your pain much worse. This includes getting back to work. Ice and Heat There is some evidence that heat may help reduce some back pain. Ice is not likely to do any harm, but it has not proven to help back pain. Until more studies are done, you might experiment to see whatworks best for you. Medicine In many cases, despite pain and discomfort, you will heal better if you do not use medicines. When needed, acetominophen (Tylenol??) can ease back pain. Anti- inflammatory medicines can also be helpful.These include ibuprofen (Motrin?? or Advil??), naproxen (Aleve??), and aspirin. You can get these medicines without a prescription. Other medicines are rarely needed. Their side effects and risks are often worse than just waiting toget better by staying active and exercising. Narcotics can make the back pain better today. However,they have many side effects and can lead to prolonged difficulties or even worse pain in the future.Contact my care team if your pain is not reduced. Posture and Sleeping Good posture helps keep the body aligned and reduces stress on back muscles and joints. Here are some tips that can help: ?? Change positions frequently. ?? When carrying things, keep loads close to the body. ?? Avoid prolonged bending. ?? When sitting, use a chair with enough lower back support. Put a pillow behind your back to reducethe stress of sitting. Limit how much time you sit. ?? Find sleeping positions that are comfortable for you. Many people find that these positions are best:? ?? Lie on your back with a pillow under your knees ?? Lie on your side with a pillow between your legs ?? Earle to find what works for you. Returning to Work Getting back to work or your usual activities in a few days or less will help you recover quickly. You can expect some discomfort, but being active will prevent your back from becoming weak. Get back to all your usual activities as soon as you can. Remember that just because it hurts, it isn???t harming you. Return to the clinic for further assessment and treatment if your symptoms increase, or if you???re not clearly improving in two weeks. Palpitations: Care Instructions Your Care Instructions Heart palpitations are the uncomfortable sensation that your heart is beating fast or irregularly. You might feel pounding or fluttering in your chest. It might feel like your heart is skipping a beat. Although palpitations may be caused by a heart problem, they also occur because of stress, fatigue, or use of alcohol, caffeine, or nicotine. Many medicines, including diet pills, antihistamines, decongestants, and some herbal products, can cause heart palpitations. Nearly everyone has palpitations from time to time. Depending on your symptoms, your doctor may need to do more tests to try to find the cause of your palpitations. Follow-up care is a figueroa part of your treatment and safety. Be sure to make and go to all appointments, and call your doctor if you are having problems. It's also a good idea to know your test results and keep a list of the medicines you take. How can you care for yourself at home? ?? Avoid caffeine, nicotine, and excess alcohol. ?? Do not take illegal drugs, such as methamphetamines and cocaine. ?? Do not take weight loss or diet medicines unless you talk with your doctor first. ?? Get plenty of sleep. ?? Do not overeat. ?? If you have palpitations again, take deep breaths and try to relax. This may slow a racing heart. ?? If you start to feel lightheaded, lie down to avoid injuries that might result if you pass out and fall down. ?? Keep a record of your palpitations and bring it to your next doctor's appointment. Write down: ?? The date and time. ?? Your pulse. (If your heart is beating fast, it may be hard to count your pulse.) ?? What you were doing when the palpitations started. ?? How long the palpitations lasted. ?? Any other symptoms. ?? If an activity causes palpitations, slow down or stop. Talk to your doctor before you do that activity again. ?? Take your medicines exactly as prescribed. Call your doctor if you think you are having a problemwith your medicine. When should you call for help? Call 911 anytime you think you may need emergency care. For example, call if: ?? You passed out (lost consciousness). ?? You have symptoms of a heart attack. These may include: ?? Chest pain or pressure, or a strange feeling in the chest. ?? Sweating. ?? Shortness of breath. ?? Pain, pressure, or a strange feeling in the back, neck, jaw, or upper belly or in one or both shoulders or arms. ?? Lightheadedness or sudden weakness. ?? A fast or irregular heartbeat. After you call 911, the tape making machine operator may tell you to chew 1 adult-strength or 2 to 4 low-dose aspirin. Wait for an ambulance. Do not try to drive yourself. ?? You have symptoms of a stroke. These may include: ?? Sudden numbness, tingling, weakness, or loss of movement in your face, arm, or leg, especially ononly one side of your body. ?? Sudden vision changes. ?? Sudden trouble speaking. ?? Sudden confusion or trouble understanding simple statements. ?? Sudden problems with walking or balance. ?? A sudden, severe headache that is different from past headaches. Call your doctor now or seek immediate medical care if: ?? You have heart palpitations and: ?? Are dizzy or lightheaded, or you feel like you may faint. ?? Have new or increased shortness of breath. Watch closely for changes in your health, and be sure to contact your doctor if: ?? You continue to have heart palpitations. Where can you learn more? 1. Go to [facility] or [employer]. 2. Enter R508 in the search box. Current as of: February 05, 2017 Content Version: 11.3 ?? [id number] [email or web address] Discharge Instr - Other OrdersChioma Luciano MD - 08/05/2017 12:42 AM CDT Please follow up with your outpatient stress test and call your doctor about your echo order to see if they would like to cancel it. Please also discuss your intermittent abdominal discomfort with your pcp, as this may be related to a stomach ulcer, gallbladder issues, or other abdominal etiology that can be worked up as an outpatient. Return to the ER immediately for any worsening symptoms documented in this encounter Medications at Time of Discharge Medication Sig Dispensed Refills Start Date End Date famotidine (PEPCID) 20 MG Take 1 Tab by 30 Tab 0 017 08/20/2017 tablet mouth two times a day for 15 days. aspirin EC 81 MG enteric Take 1 tablet by 13 07/1007/29/2018 coated tablet mouth daily (every 24 hours). cholecalciferol (VITAMIN Take 1 tablet by 90 tablet 3 04/1808/22/2017 D3) 1000 UNITS mouth daily (every tabletIndications: Vitamin 24 hours). D deficiency (HRC) losartan (COZAAR) 50 MG Take 2 Tabs by 90 Tab 3 08/03/20 17 08/22/2017 tabletIndications: mouth daily. Essential hypertension (HRC) metoprolol succinate Take 1 Tab by 90 Tab 2 07/09/2017 1 (TOPROL XL) 50 MG 24 hour mouth daily. (SEE release tablet COMMENTS) simvastatin (ZOCOR) 20 MG Take 1 Tab by 90 Tab 3 017 05/27/2018 tabletIndications: mouth daily. Hyperlipidemia, unspecified hyperlipidemia type (HRC) documented as of this encounter ED Notes Dariel Osuna RN - 08/05/2017 12:55 AM CDT The patient will be discharged to home. Patient is alert and oriented x 4 and patient is stable. Patient discharged by: ambulation accompanied by friend Temp: 36.6 ??C (97.8 ??F) (08/04/172038) Pulse: 79 (08/05/1750) Resp: 20 (08/04/172038) BP: (!) 171/89 (08/05/1750) SpO2: 94 % (08/05/1750) Discharge instructions for chest pain were provided to patient. Prescriptions sent with patient. Reviewed the main side effects and potential adverse reactions, patient verbalized understanding. Patient verbalizes understanding of discharge instructions, reason for discharge and necessary follow-up care. Chioma Luciano MD - 08/04/2017 9:10 PM CDT Chief Complaint: Abdominal bloating HPI: Michele Angulo is a 76 y.o. female who presents to the emergency center for evaluation of abdominal bloating. The patient was seen here 3 days ago for evaluation of dizziness and hypertension. At that timeshe had MRI of the brain and MRA of the head and neck completed as well as ECG and basic labs all ofwhich were unremarkable. Since that time she has still not been feeling like herself. She describes some upper abdominal bloating and discomfort which seems to begin at 2 pm everyday and resolves aftersome time on its own. She believes it may be related to eating, but is not certain. Throughout this time she also describes feeling generally very bad, but has a difficult time describing this stating she just feels like she has crashed and burned over the last several days. She has been checking her blood pressures regularly and they have been improving. She was seen in clinic for a follow up appointment yesterday at which time an outpatient echocardiogram, VL US abd arterial renal artery and labs were ordered and she has cardiology and vascular surgery follow up scheduled. This evening she had another episode of the abdominal bloating and pain and believes she may have had some upper back pressure with this as well, so she presents here. Upon presentation she explains that the upper back pain was very brief, mild and she does not remember its exact location, potentially in the upper left side. Here she is not experiencing any abdominal pain but does have some low back discomfort. She denies any chest pain or shortness of breath but does have a fluttery feeling in her chest on occasion.No fever, chills, nausea, vomiting, diarrhea, and constipation. Cardiac Risk Factors: The patient has a history of hypertension, hyperlipidemia, but no history of diabetes mellitus. The patient has no personal or family history of heart disease. The patient has never smoked tobacco. Medications: aspirin EC 81 MG enteric coated tablet cholecalciferol (VITAMIN D3) 1000 UNITS tablet losartan (COZAAR) 50 MG tablet metoprolol succinate (TOPROL XL) 50 MG 24 hour release tablet simvastatin (ZOCOR) 20 MG tablet Allergies: Penicillins Sulfa Antibiotics Past Medical History: Calculus of kidney Hyperlipidemia HTN Obesity Postmenopausal Zoster Hypertension Esophageal reflux Past Surgical History: Bunionectomy Family History: Arthritis Liver cancer Kidney/bladder disease Social History: The patient is single, a non-smoker and rarely consumes alcohol. Review of Systems Constitutional: Negative for chills and fever. Respiratory: Negative for shortness of breath. Cardiovascular: Positive for palpitations. Negative for chest pain. Gastrointestinal: Positive for abdominal distention and abdominal pain. Negative for constipation, diarrhea, nausea and vomiting. Musculoskeletal: Positive for back pain. All other systems reviewed and are negative. Triage Vitals Temp 08/04/172038 36.6 ??C (97.8 ??F) Temp src 08/04/172038 Oral Pulse 08/04/172038 81 Resp 08/04/172038 20 BP 08/04/172038 180/103 SpO2 08/04/172038 93 % Physical Exam HENT: Head is normal in appearance.Pupils equally round and reactive. Oropharynx is normal with moist mucus membranes. Neck: Supple, no meningismus Cardiovascular: Regular rate and rhythm and without murmurs. Respiratory: Normal respiratory effort, lungs are clear bilaterally. GI: Abdomen is soft, non-tender, non-distended Musculoskeletal: No asymmetry of the lower extremities, no tenderness to palpation. Skin: Normal, without rash. Lymphatic: No edema Neurologic: Cranial nerves grossly intact, nl cognition, no focal deficits. Psychiatric: Normal affect. ECG: Indication: Back pain Time: 2036 Interpretation: Normal sinus rhythm Cannot rule out Anterior infarct (cited on or before) 01-AUG-2017) Abnormal ECG When compared with ECG of 01-AUG-2017 19:54, No significant change was found Rate: 80 [facility]: 36 Imaging: CXR PA and Left Lateral: The lungs and costophrenic angles are clear. ??Heart size and pulmonary vascularity are within normal limits. ??There is no evidence of pneumothorax or pleural effusion. Deformity of the left second rib laterally that has the appearance suggestive of a chronic deformity. If there is acute pain, a limited CT of the upper chest could be obtained. Results per Radiology (please see formal Radiology report for further details). Laboratory: CBC with Differential: WBC 7.5 (WNL), Hgb 12.8 (WNL), Plts 176 (WNL) o/w WNL Basic Metabolic Panel: Cr. 0.89 (WNL), glucose 109 (H) o/w WNL Hepatic Function Panel: protein total 6.3 (L) o/w WNL BNP: <10 (WNL) Magnesium: 2.1 (WNL) APTT: 28.9 (WNL) Protime with INR: Prothrombin 13.7 (WNL), INR 1.0 Lipase: 22 (WNL) Troponin: <0.03 (WNL) 90 minute troponin: <0.03 (WNL) Urinalysis: occasional bacteria, o/w negative ED Course: Interventions: 2157 Aspirin 324 mg, PO Patient placed on cardiac monitors and continuous pulse oximetry. Nursing notes and vitals were reviewed. Past medical records were reviewed. I performed an exam of the patient as detailed above. The above labs, imaging and ECG were ordered and intervention administered. Findings and plan explained to the patient. I fully addressed and answered all questions and concerns the patient had. The patient was given prescription(s) as documented below. The patient was discharged home, status improved, with instructions regarding supportive care, medications, and reasons to return as well as the importance of close follow-up was reviewed. Medications Prescribed this Visit Disp Refills Start End famotidine (PEPCID) 20 MG tablet 30 Tab 0 08/05/2017 08/20/2017 Take 1 Tab by mouth two times a day for 15 days. Oral Last EC Vitals: Temp: 36.6 ??C (97.8 ??F) (08/04 2039) Temp src: Oral (08/04 2039) Pulse: 81 (08/04 2039) Resp: 20 (08/04 2039) BP: 180/103 (08/04 2039) SpO2: 93 % (08/04 2039) Impression and Plan: Michele Angulo is a 76 y.o. female patient who presents to the emergency center for multiple non-specific symptoms. It seems as though the patient is having some abdominal bloating after eating for the last several days. She also had an episode where she had some transient left upper back discomfort that was associated with the abdominal pain, but has since resolved. Possible new right sided low back pain. She denies any chest pain or pressure. She does occasionally feel a fluttering in her chest but not frequently. No cough or fever. No other associated symptoms. Vitals in the emergency center reveal she is hypertensive at 180/103 (this improved on its own to 171/89), vitals are otherwise unremarkable. On exam, the patient appears comfortable. She has normal heart and lung exam. She has no abdominaltenderness to palpation, no distention. She has normal bowel sounds, normal distal pulses. Exam is otherwise benign. I have a low suspicion of ACS based on her symptoms. She apparently reported chest pain in triage however denies any chest pain/pressure/tightness to me. ECG is non-ischemic and she hastwo sets of negative cardiac enzymes here. I have considered dissection but symptoms are atypical and she is currently pain free, so I have a low suspicion of this. Given abdominal bloating after eating, she may have a degree of IBS versus possible gall bladder dysfunction or peptic ulcer disease. Herexam is not consistent with a small bowel obstruction or infectious process at this time. She does have a little bit of low back discomfort, so I added in a urine sample which is unremarkable. This pain appears to be positional and is located over the SI region, so it is likely musculoskeletal in nature. Patient evaluation here consisted of an ECG, labs, and chest xray. All of which were unremarkable. Upon reevaluation she feels at her baseline. Given the negative lab work and no abdominal tenderness on exam, I do not feel abdominal imaging is indicated at this time, however I have instructed her to follow up as an outpatient for possible endoscopy, gall bladder ultrasound, or further imaging of the abdomen if symptoms persist. I will schedule her for an out patient stress test as she is female and symptoms may be atypical for ACS, although again I have a low suspicion. All results, discussed, all questions answered. She was comfortable with this plan, indications for return were given, and will be discharged from the emergency center. Diagnosis: Final diagnoses: [R10.9] Abdominal discomfort [R00.2] Palpitations [M54.9] Upper back pain on left side I, Rebecca Obrien, am serving as a scribe to document services personally performed by Dr. Lucianobased on my observations and the provider's statements to me. 08/04/2017 [facility] Chioma Luciano MD 08/05/17 0406 documented in this encounter Plan of Treatment Not on filedocumented as of this encounter Procedures Procedure Name Priority Date/Time Associated Comments Diagnosis UA WITH CULTURE IF POS STAT 08/04/2017 11:51 R esults for this (HOLINESS) PM CDT procedure are i n the results section. CARD PROF TROPI 90 MIN STAT 08/04/2017 11:48 R esults for this PM CDT procedure are i n the results section. XR CHEST 2 VIEWS STAT 08/04/2017 9:47 PM Resul ts for this CDT procedure are i n the results section. EMERGENCY CENTER DRAW STAT 08/04/2017 9:25 PM Results for this AND HOLD CDT procedure are i n the results section. ANION GAP STAT 08/04/2017 9:25 PM Results f or this CDT procedure are i n the results section. CARDIAC PROFILE STAT 08/04/2017 9:25 PM Result s for this CDT procedure are i n the results section. BRAIN NATRIURETIC STAT 08/04/2017 9:25 PM Resu lts for this PEPTIDE (BNP) CDT procedure are in the results section. COMPLETE BLOOD STAT 08/04/2017 9:25 PM Results for this COUNT-W/DIFF CDT procedure are i n the results section. LIVER PANEL(HEPATIC STAT 08/04/2017 9:25 PM Re sults for this FUNCTION PANEL) CDT procedure ar e in the results section. BASIC METABOLIC PANEL STAT 08/04/2017 9:25 PM Results for this CDT procedure are i n the results section. APTT (ACTIVATED PARTIAL STAT 08/04/2017 9:25 PM Results for this THROMBOPLASTIN TIME CDT procedur e are in the results section. DIFFERENTIAL STAT 08/04/2017 9:25 PM Results f or this CDT procedure are i n the results section. MAGNESIUM STAT 08/04/2017 9:25 PM Results f or this CDT procedure are i n the results section. LIPASE STAT 08/04/2017 9:25 PM Results f or this CDT procedure are i n the results section. INR/PROTIME STAT 08/04/2017 9:25 PM Results f or this CDT procedure are i n the results section. ECG 12 LEAD OUTPATIENT STAT 08/04/2017 8:37 PM Results for this CDT procedure are i n the results section. documented in this encounter Results (ABNORMAL) Urinalysis with Culture if Pos (Jainism) (08/04/2017 11:51 PM CDT) Patholo gist Method Time Signature Urine Type URINE:clean PN SOFT cat Turbidity Clear Clear PN SOFT Color Yellow PN SOFT U BILI Negative Negative PN SOFT Blood Urine Negative Neg - Trace PN SOFT Glucose, Negative Neg-30 PN SOFT Qualitative U mg/dL Ketones Negative Negative PN SOFT mg/dL Leukocyte Negative Negative PN SOFT Esterase Urine Nitrite Urine Negative Negative PN SOFT pH Urine 5.0 5.0 - 8.0 PN SOFT Protein Urine Negative Neg - Trace PN SOFT mg/dL U Specific 1.015 1.005 - PN SOFT [place] 1.030 Urobilinogen Negative Negative PN SOFT Urine Eu/dL Epithelial Cells 4 /HPF PN SOFT Transitional <1 /HPF PN SOFT Epithelial Cells Urine WBC 3 0 - 9 /HPF PN SOFT Urine RBC <1 0 - 2 /HPF PN SOFT Bacteria Urine Occ (A) /HPF PN SOFT Urine Mucus Occ /HPF PN SOFT Specimen Anatomical Collection Method Collection Time Receive d Time (Source) Location / / Volume Laterality 08/04/2017 11:51 08/04/2017 PM CDT 11:53 PM CDT Narrative PN SOFT - 08/05/2017 12:09 AM CDT Performed at [address] [address] CLIA number [id number] Chioma Luciano MD LAB_1 Performing Organization Address City/State/ZIP Code Phon e Number PN SOFT [address] [place] [address] [phone] Prof Tropi 90 Min (08/04/2017 11:48 PM CDT) athologist Signature Tropi at 90 Min <0.03 0.00 - 0.02 PN SOFT ng/mL Specimen Anatomical Collection Method Collection Time Receive d Time (Source) Location / / Volume Laterality 08/04/2017 11:48 08/04/2017 PM CDT 11:55 PM CDT Narrative PN SOFT - 08/05/2017 12:22 AM CDT Performed at [address] [address] CLIA number [id number] Sonu Tafoya MD LAB_1 Performing Organization Address City/State/ZIP Code Phon e Number PN SOFT [address] [place] [address] [phone] XR Chest 2 Views (08/04/2017 9:47 PM CDT) Anatomical Region Laterality Modality Chest, Lung Radiographic Imaging Specimen (Source) Anatomical Collection Method Collection Time Re ceived Time Location / / Volume Laterality 08/04/2017 9:41 PM CDT Narrative 08/04/2017 10:05 PM CDT COMPARISON: ??None. FINDINGS: ??Two views were obtained. ??T he lungs and costophrenic angles are clear. ??Heart size and pulmonary vascularity are within normal limits. ??There is no evidence of pneumothorax or pleural eff usion. Deformity of the left second rib laterally that has the appearance suggestive of a chronic deformity. If there is acute pain, a limited CT of the upper chest could be obtained. Procedure Note Jonathan Shah MD - 08/04/2017 COMPARISON: None. FINDINGS: Two views were obtained. The l ungs and costophrenic angles are clear. Heart size and pulmonary vascularity are within normal limits. There is no evidence of pneumothorax or pleural effusion. Deformity of the left second rib laterally that has the a ppearance suggestive of a chronic deformity. If there is acute pain, a limited CT of the upper chest could be obtained. Chioma Luciano MD RAD GD INR/Protime (08/04/2017 9:25 PM CDT) P athologist Signature Prothrombin Time 13.7 11.8 - PN SOFT 14.0 sec INR 1.0 PN SOFT Comment: Recommendations for INR in warfarin ther apy: (Chest, Vol. 119, No. 1, Nov 2000, Suppl ement). Prevention and treatment of venous throm bosis; ? INR 2.0-3.0 Treatment of PE; Prevention of systemic embolism due to prosthetic tissue heart valves, b ileaflet mechanical valves in the aortic position , acute AR, valvular heart disease and atrial fibril lation. Mechanical prosthetic valves, (high risk ). ? INR 2.5-3.5 Prevention of recurrent myocardial infar ct. These recommended ranges serve as guidel kristi. Adjustment outside these ranges may be c linically indicated. Specimen Anatomical Collection Method Collection Time Receive d Time (Source) Location / / Volume Laterality 08/04/2017 9:25 PM 7 CDT 10:05 PM CDT Narrative PN SOFT - 08/04/2017 10:18 PM [place] [address] CLIA number [id number] Chioma Luciano MD LAB_1 Performing Organization Address [facility] Phon e Number PN SOFT [address] [place] [address] APTT (Activated Partial Thromboplastin Time) (08/04/2017 9:25 PM CDT) [facility] gist Method Time Signature Partial 28.9 25.0 - PN SOFT Thromboplastin Time 38.0 sec Specimen Anatomical Collection Method Collection Time Receive d Time (Source) Location / / Volume Laterality 08/04/2017 9:25 PM 7 CDT 10:05 PM CDT Narrative PN SOFT - 08/04/2017 10:20 PM CDT Performed at [address] [address] CLIA number [id number] Chioma Luciano MD LAB_1 Performing Organization Address [facility] Phon e Number PN SOFT [address] [place] [address] Magnesium (08/04/2017 9:25 PM CDT) P athologist Signature Magnesium 2.1 1.6 - 2.6 PN SOFT mg/dL Specimen Anatomical Collection Method Collection Time Receive d Time (Source) Location / / Volume Laterality 08/04/2017 9:25 PM 7 CDT 10:05 PM CDT Narrative PN SOFT - 08/04/2017 10:23 PM [place] [address] CLIA number [id number] Chioma Luciano MD LAB_1 Performing Organization Address City/[facility]/ZIP [facility] [place] Phon e Number PN SOFT [address] [place] [address] (ABNORMAL) Liver Panel(Hepatic Function Panel) (08/04/2017 9:25 PM CDT) Patholo gist Method Time Signature Alk Phos 74 40 - 150 PN SOFT U/L Bilirubin Total 0.5 0.2 - 1.2 PN SOFT mg/dL Bilirubin, Direct 0.2 0.0 - 0.5 PN SOFT mg/dL Protein Total, Serum 6.3 (L) 6.4 - 8.3 PN SOFT g/dL Albumin 3.8 3.4 - 5.0 PN SOFT g/dL Aspartate 13 10 - 40 PN SOFT Aminotransferase U/L Alanine 12 9 - 55 PN SOFT Aminotransferase U/L Specimen Anatomical Collection Method Collection Time Receive d Time (Source) Location / / Volume Laterality 08/04/2017 9:25 PM 7 CDT 10:05 PM CDT Narrative PN SOFT - 08/04/2017 10:23 PM CDT Performed at [address] [address] CLIA number [id number] Chioma Luciano MD LAB_1 Performing Organization Address [facility] Phon e Number PN SOFT [address] [place] [address] Lipase (08/04/2017 9:25 PM CDT) P athologist Signature Lipase 22 8 - 78 U/L PN SOFT Specimen Anatomical Collection Method Collection Time Receive d Time (Source) Location / / Volume Laterality 08/04/2017 9:25 PM 7 CDT 10:05 PM CDT Narrative PN SOFT - 08/04/2017 10:23 PM CDT Performed at [facility], [address] [place] [address] CLIA number [id number] Chioma Luciano MD LAB_1 Performing Organization Address City/[facility]/ZIP Code Phon e Number PN SOFT [address] [place] [address] B-Type Natriuretic Peptide (08/04/2017 9:25 PM CDT) P athologist Signature B-Type <10 0 - 75 PN SOFT Natriuretic pg/mL Peptide Specimen Anatomical Collection Method Collection Time Receive d Time (Source) Location / / Volume Laterality 08/04/2017 9:25 PM 7 CDT 10:05 PM CDT Narrative PN SOFT - 08/04/2017 11:15 PM CDT Performed at [address] [address] CLIA number [id number] Chioma Luciano MD LAB_1 Performing Organization Address City/[facility] Phon e Number PN SOFT [address] [place] [address] (ABNORMAL) Differential (08/04/2017 9:25 PM CDT) Patholo gist Method Time Signature Absolute 4.8 1.8 - 8.0 PN SOFT Neutrophils k/cmm Absolute 1.6 1.1 - 4.0 PN SOFT Lymphocytes k/cmm Absolute 1.0 (H) 0.2 - 0.8 PN SOFT Monocytes k/cmm Absolute 0.1 0.0 - 0.5 PN SOFT Eosinophils k/cmm Absolute 0.0 0.0 - 0.2 PN SOFT Basophils k/cmm Immature 0.3 0.0 - 0.5 PN SOFT Granulocytes % Specimen Anatomical Collection Method Collection Time Receive d Time (Source) Location / / Volume Laterality 08/04/2017 9:25 PM 7 9:58 CDT PM CDT Narrative PN SOFT - 08/04/2017 9:59 PM CDT Performed at [address] [address] CLIA number [id number] Sonu Tafoya MD LAB_1 Performing Organization Address [facility] Phon e Number PN SOFT [address] [place] [address] Anion Gap (08/04/2017 9:25 PM CDT) athologist Signature ANION GAP 9 0 - 16 mEq/L PN SOFT Specimen Anatomical Collection Method Collection Time Receive d Time (Source) Location / / Volume Laterality 08/04/2017 9:25 PM 7 CDT 10:53 PM CDT Narrative PN SOFT - 08/04/2017 10:57 PM [place] [address] CLIA number [id number] Sonu Tafoya MD LAB_1 Performing Organization Address City/[facility] Phon e Number PN SOFT [address] [place] [address] Emergency Center Draw And Hold (08/04/2017 9:25 PM CDT) athologist Signature Emergency Drawn PN SOFT Center Draw And Hold Extra Lavender Drawn PN SOFT Top Drawn Extra PST Top Drawn PN SOFT Drawn Extra SST Top Drawn PN SOFT Drawn Specimen Anatomical Collection Method Collection Time Receive d Time (Source) Location / / Volume Laterality 08/04/2017 9:25 PM 7 CDT 10:53 PM CDT Narrative PN SOFT - 08/05/2017 7:41 AM CDT Performed at [address] [address] CLIA number [id number] Sonu Tafoya MD LAB_1 Performing Organization Address [facility] Phon e Number PN SOFT [address] [place] [address] Cardiac Profile (08/04/2017 9:25 PM CDT) athologist Signature Tropi Baseline <0.03 0.00 - 0.02 PN SOFT ng/mL Specimen Anatomical Collection Method Collection Time Receive d Time (Source) Location / / Volume Laterality 08/04/2017 9:25 PM 7 CDT 10:53 PM CDT Narrative PN SOFT - 08/04/2017 11:00 PM CDT Performed at [address] [address] CLIA number [id number] Sonu Tafoya MD LAB_1 Performing Organization Address [facility] Phon e Number PN SOFT [address] [place] [address] Complete Blood Count-W/Diff (08/04/2017 9:25 PM CDT) athologist Signature White Blood Cell 7.5 3.8 - 11.0 PN SOFT Count k/cmm Red Blood Cell 4.36 3.70 - PN SOFT Count 5.20 m/cmm Hemoglobin 12.8 11.8 - PN SOFT 15.5 g/dL Hematocrit 39.1 35.0 - PN SOFT 46.0 % Mean Corpuscular 89.7 80.0 - PN SOFT Volume 100.0 fL RDW 13.2 11.0 - PN SOFT 15.0 % Platelet Count 176 140 - 450 PN SOFT k/cmm Specimen Anatomical Collection Method Collection Time Receive d Time (Source) Location / / Volume Laterality 08/04/2017 9:25 PM 7 9:58 CDT PM CDT Narrative PN SOFT - 08/04/2017 9:59 PM CDT Performed at [address] [address] CLIA number [id number] Sonu Tafoya MD LAB_1 Performing Organization Address [facility] Phon e Number PN SOFT [address] [place] [address] (ABNORMAL) Basic Metabolic Panel (08/04/2017 9:25 PM CDT) athologist Signature Creatinine 0.89 0.55 - PN SOFT Serum 1.02 mg/dL Lab Glucose 109 (H) 70 - 100 PN SOFT mg/dL Comment: The stated glucose range is for the fast ing state. Non-fasting glucose range is 70-180 mg/d L CO2 25 22 - 31 mmol/L PN SOFT Chloride 108 98 - 109 mmol/L PN SOFT Potassium 3.8 3.5 - 5.2 mmol/L PN SOFT Sodium 142 136 - 145 mmol/L PN SOFT Blood Urea Nitrogen 16 9 - 26 mg/dL PN SOFT Calcium 9.0 8.4 - 10.2 mg/dL PN SOFT Est [...] Time (Source) Location / / Volume Laterality 08/04/2017 9:25 PM 7 CDT 10:53 PM CDT Narrative PN SOFT - 08/04/2017 10:57 PM CDT Performed at [facility], [facility] [place] [address] CLIA number [id number] Sonu Tafoya MD LAB_1 Performing Organization Address City/State/ZIP Code Phon e Number PN SOFT [address] [place] [address] ECG 12 Lead Outpatient: Obtain EKG within 10 minutes (08/04/2017 8:37 PM CDT) P athologist Signature Ventricular Rate 80 BPM [facility] Atrial Rate 80 BPM [facility] P-R Interval 184 ms [facility] QRS Duration 88 ms [facility] QT 362 ms [facility] QTc 417 ms [facility] P [place] 41 degrees [facility] R [place] 36 degrees [facility] T [place] 2 degrees [facility] Specimen (Source) Anatomical Collection Method Collection Time Re ceived Time Location / / Volume Laterality 08/04/2017 8:37 PM CDT Narrative [facility] - 08/05/2017 6:54 AM CDT Sinus rhythm Cannot rule out Anterior infarct (cited on or before 01-AUG-2017) Abnormal ECG When compared with ECG of 01-AUG-2017 19 :54, No significant change was found Confirmed by CHIOMA LUCIANO ([id number]), SHARA Keene ([id number]) on 08/05/2017 6:54:35 AM Procedure Note Chioma Luciano MD / [facility], Internal Processing - 02/01/2020 Sinus rhythm Cannot rule out Anterior infarct (cited on or before 01-AUG-2017) Abnormal ECG When compared with ECG of 01-AUG-2017 19 :54, No significant change was found Confirmed by CHIOMA LUCIANO ([id number]), SHARA Keene ([id number]) on 08/05/2017 6:54:35 AM Sonu Tafoya MD PN ECG ORDERABLES Performing Organization Address City/State/ZIP Code Phon e Number [facility] [address] [place] [address] documented in this encounter Visit Diagnoses Diagnosis Abdominal discomfort Abdominal pain, unspecified site Palpitations Upper back pain on left side Pain in thoracic spine Triage Assessment Note - Uriah Edmondson RN - 08/04/2017 8:35 PM CDT Presents to ER with chest pain that occurred after eating dinner with some abdominal bloating. Pain has resolved at this time. Pain radiated into her back. Denies shortness of breath. Reports she felt diaphoretic during the episode of chest pain. documented in this encounter Administered Medications Inactive Administered Medications - up to 3 most recent administrations Medication Order MAR Action Action Date Dose Rate Site aspirin chewable tablet 324 mg Given 08/04/2017 9:58 PM CDT 324 mg 324 mg, Oral, ONCE, On 08/04/17 at 2200, For 1 dose, Chew 4 x 81 mg tabs x 1 sodium chloride 0.9% injection 10-60 mL 10-60 mL, Intravenous, PRN, Line Patency, Line Care, S tarting on 08/04/17 at 2034, Until 08/05/17 at 0257, For 8 hours documented in this encounter Active and Recently Administered Medications Times are shown in CDT. Scheduled Medication Order 08/03/2017 08/04/2017 08/05/2017 aspirin chewable tablet 324 mg (COMPLETED) 3694 (Given - Provider: Belinda Palafox RN) 324 mg, Oral, ONCE, 08/04/17 at 2200, For 1 dose, Chew 4 x 81 mg tabs x 1 PRN Medication Order 08/03/2017 08/04/2017 08/05/2017 sodium chloride 0.9% injection 10-60 mL 10-60 mL, Intravenous, PRN, Line Patency , Line Care, Starting 08/04/17 at 2034, For 8 hours documented in this encounter Care Teams Software Clerk Relationship Specialty Start Date End Date Veronica Heredia DO PCP - General Family Practice 03/22/17 [address] [facility] [place] [id number] documented as of this encounter
--- OUTSIDE RECORDS SUMMARY | 2022-08-15 14:55 | XMS_ITS | Encounter Summary ---
:1940 Author Organization [facility] Address [address] [address] Care Team Providers Name Role Phone Veronica Heredia DO Primary Care Provider Reason for Visit Reason Comments BP CHECK,NURSE Encounter Details Date Type Department Care Team Description 08/09/2017 Nursing Visit [facility], Ja Essential hypertension Medicine [facility] (Primary Dx) [address] [place] [address] Social History Tobacco Use Types [...] Sign Reading Time Taken Comments Blood Pressure 150/81 08/09/2017 9:56 AM CDT Pulse 71 08/09/2017 9:56 AM CDT Temperature - - Respiratory Rate - - Oxygen Saturation - - Inhaled Oxygen Concentration - - Weight - - Height - - Body Mass Index - - documented in this encounter Progress Notes Veronica Heredia DO - 08/09/2017 10:02 AM CDT Addended by: VERONICA HEREDIA on: 08/09/2017 10:02 AM Modules accepted: Orders Jayne Johnson MA - 08/09/2017 10:00 AM CDT Pt here for nurse BP check. Manual reading of: 152/90 [place] reading as follows: Average of 150/81 1) 161/80 2) 148/83 3) 140/80 From 08/03/[address] Johansen: I will have her back for a nurse blood pressure check next week. Would continue to titrate or add medications as needed. Could consider a diuretic as a next agent. Per nurse BP check guidelines, pt may leave in BP is under 180/100. Pt was under this number and hasfollowup with PCP scheduled tomorrow. Routing to PCP for review for tomorrow Veronica Heredia DO - 08/09/2017 10:00 AM CDT Hydrochlorothiazide 12.5 mg sent. I would like her to follow up within one month to check her electrolytes and have her blood pressure rechecked. documented in this encounter Plan of Treatment Not on filedocumented as of this encounter Visit Diagnoses Diagnosis Essential hypertension (HRC) - Primary Unspecified essential hypertension documented in this encounter Care Teams Sales Representative Livestock Relationship Specialty Start Date End Date Veronica Heredia DO PCP - General Family Practice 03/22/17 [address] [facility] [place] [address] documented as of this encounter
--- OUTSIDE RECORDS SUMMARY | 2022-08-15 14:55 | XMS_ITS | Encounter Summary ---
:1940 Author Organization [facility] Address [address] [place] [address] Care Team Providers Name Role Phone FabionilsonVeronica DO Primary Care Provider Encounter Details Date Type Department Care Team Description 04/20/2017 Lab Visit [facility] IFG (impaired fasting [address] [facility] glu cose) [place] [address] Social History Tobacco Use Types Packs/Day Years Used Date Smoking Tobacco: Never Alcohol Use Standard Drinks/Week Comments [...] Name Priority Date/Time Associated Diagnosis Comme nts HGB A1C Routine 04/20/2017 8:25 AM IFG (impaired fasting Results for this CDT glucose) procedure are i n the results section . documented in this encounter Results Hemoglobin A1C Glycosylated (04/20/2017 8:25 AM CDT) P athologist Signature HGB A1C 5.5 4.0 - 5.6 % PN SOFT Specimen Anatomical Collection Method Collection Time Receive d Time (Source) Location / / Volume Laterality 04/20/2017 8:25 AM 7 CDT 12:38 PM CDT Narrative PN SOFT - 04/20/2017 2:49 PM CDT Performed at [facility], [address] [place] [address] CLIA number [id number] Veronica Heredia DO LAB_1 Performing Organization Address City/State/ZIP Code Phon e Number PN SOFT [address] [place] [address] documented in this encounter Visit Diagnoses Diagnosis IFG (impaired fasting glucose) Impaired fasting glucose documented in this encounter Care Teams Patient Care Relationship Specialty Start Date End Date Veronica Heredia DO PCP - General Family Practice 03/22/17 [address] [facility] [place] [address] documented as of this encounter
--- OUTSIDE RECORDS SUMMARY | 2022-08-15 14:55 | XMS_ITS | Encounter Summary ---
:1940 [facility] Address [address] [place] [address] Care Team Providers Name Role Phone FabionilsonVeronica DO Primary Care Provider Reason for Referral Procedure/Equipment (Routine) - Incomplete Specialty Diagnoses / Procedures Referred By Contact Refer red To Contact Diagnoses Essential hypertension (HRC) Wallace Johansen MD Procedures US Renal W Bladder [address] [place] [place] [address] Referral ID Status Reason Start Date Expiration Date Visits V isits Requested Authorized [id number] Incomplete 08/03/2017 11/02/2018 1 1 Procedure/Equipment (Routine) - Incomplete Specialty Diagnoses / Procedures Referred By Contact Refer red To Contact Diagnoses Essential hypertension (HRC) Wallace Johansen MD Procedures VL US Abd Arterial Renal Artery Complete [id number] [place] [place] [address] Referral ID Status Reason Start Date Expiration Date Visits V isits Requested Authorized [id number] Incomplete 08/03/2017 11/02/2018 1 1 (Routine) - Closed Specialty Diagnoses / Procedures Referred By Contact Refer red To Contact Diagnoses Essential hypertension (HRC) Wallace Johansen MD Procedures Echocardiogram [address] [place] [place] [address] Referral ID Status Reason Start Date Expiration Date Visits Requ ested Visits Authorized [id number] Closed 08/03/2017 11/02/2018 1 1 Reason for Visit Reason Comments Follow-up ER Encounter Details Date Type Department Care Team Description 08/03/2017 Office Visit [facility] Wallace Johansen Essenti al hypertension (Primary Dx); Medicine Dizziness; [address] [address] [place] Perip heral edema; [address] [facility] Bilateral low back pain without sciatica , [place] [address] [place], [place] [phone] Social History Tobacco Use Types Packs/Day Years [...] Sign Reading Time Taken Comments Blood Pressure 162/100 08/03/2017 10:45 AM CDT Pulse 70 08/03/2017 10:45 AM CDT Temperature - - Respiratory Rate - - Oxygen Saturation - - Inhaled Oxygen Concentration - - Weight 92.5 kg (204 lb) 08/03/2017 10:45 AM CDT Height - - Body Mass Index 35.48 04/19/2017 8:45 AM CDT documented in this encounter Progress Notes Wallace Johansen MD - 08/03/2017 11:00 AM CDT SUBJECTIVE: Very pleasant 76 y.o.female here today for emergency department follow-up. She was at home earlier this week, woke up in the middle of the night in the bathroom. When she returned to her bed, she was dizzy. She describes a room spinning sensation. She thought this may be vertigo which she has had intermittently in the past. This resolved eventually and she woke up and was feeling better. She did have a headache around the time of the vertigo but this improved. She made an appointment to go get checked at the clinic the next day. Was noted to have a markedly elevated blood pressure. She was sent to the emergency department for further evaluation. She had an MRI and MRA of the head basedon her dizziness, this does not show particular cause for it. Blood pressure remained elevated throughout her ER visit. She has tolerated her blood pressure medications well, does check her blood pressures intermittently and these always been normal. She does bring some readings from home since her ER visit, they have generally been in the 140s to 160s systolic over 100s diastolic. Denies any chest pain or shortness of breath. No headaches or vision changes. No further lightheadedness or dizziness. She has noted some mild edema in the lower extremities. Has had some low back pain which he attributes to doing some lifting and packing for her upcoming winter stay in [place]. She is otherwise withoutcomplaints. Patient Active Problem List Diagnosis ??? Essential hypertension (HRC) ??? Hyperlipidemia (HRC) ??? Esophageal reflux ??? Postmenopausal ??? Aspirin long-term use ??? H/O colonoscopy ??? BMI 35.0-35.9,adult ??? Calculus of kidney Current Outpatient Prescriptions Medication Sig Dispense Refill ??? aspirin EC 81 MG enteric coated tablet Take 1 tablet by mouth daily (every 24 hours). 13 ??? cholecalciferol (VITAMIN D3) 1000 UNITS tablet Take 1 tablet by mouth daily (every 24 hours). 90tablet 3 ??? losartan (COZAAR) 50 MG tablet Take 2 Tabs by mouth daily. 90 Tab 3 ??? metoprolol succinate (TOPROL XL) 50 MG 24 hour release tablet Take 1 Tab by mouth daily. (SEE COMMENTS) 90 Tab 2 ??? simvastatin (ZOCOR) 20 MG tablet Take 1 Tab by mouth daily. 90 Tab 3 No current facility-administered medications for this visit. Allergies Allergen Reactions ??? Other PN: LW Other1: -IV DYE/ANAPHYLAXIS ??? Penicillins PN: LW Reaction: HIVES ??? Sulfa Antibiotics PN: LW Reaction: HIVES PAST SURGICAL HISTORY: Past Surgical History: Procedure Laterality Date ??? BUNIONECTOMY FAMILY HISTORY: Family History Problem Relation Age of Onset [...] History ??? Cancer, Endometrial Negative Family History SOCIAL HISTORY: Retired. Lives part of the year in [place]. No tobacco. Rare alcohol. REVIEW OF SYSTEMS: Complete and found to be negative except as listed in the HPI OBJECTIVE: Vital Signs: BP (!) 162/100 Pulse 70 Wt 92.5 kg (204 lb) BMI 35.48 kg/m2 General: 76 y.o.female in no acute distress. Alert, pleasant and cooperative on exam. HEENT: Normocephalic, atraumatic. TMs appear normal. Mucous membranes are moist. Posterior pharynx was normal. Normal oral/buccal mucosa with no lesions noted. No lymphadenopathy. No thyromegaly. No carotid bruits. Pupils equal and reactive to light and accommodation. Extra-ocular muscles intact bilaterally. Heart: Regular rate and rhythm, no murmurs, rubs, or gallops. Lungs: Clear to auscultation bilaterally. No wheezes or rales. Abdomen: Bowel sounds present, no hepatosplenomegaly or masses. Soft, non tender, non distended. Extremities: Normal pulses in all extremities, no clubbing, cyanosis, or edema. Mild reproducible tenderness to palpation in the paraspinous muscles of the lumbar spine. Straight leg raise negative bilaterally. Neurologic: Cranial nerves 2-12 intact. No focal deficits or changes. 5/5 strength in all extremities bilaterally. DTRs brisk and symmetric in the lower extremities bilaterally. ASSESSMENT AND PLAN: Michele was seen today for follow-up. Diagnoses and all orders for this visit: Essential hypertension (HRC) Not controlled. Unclear as to why this change rather suddenly for her. Given that, check a number oflaboratories looking for a secondary cause of hypertension. Recommended echocardiogram, renal arteryultrasound as well as renal ultrasound. Would adjust her medications. Increase her losartan to 100 mg daily. She had been on amlodipine in the past and this caused dizziness. I will have her back for anurse blood pressure check next week. Would continue to titrate or add medications as needed. Could consider a diuretic as a next agent. - BUN; Future - Calcium; Future - Creatinine; Future - Electrolyte Panel; Future - TSH with Free T4 (if TSH Abnormal); Future - Complete Blood Count W/Diff; Future - Metanephrines Plasma; Future - Echocardiogram; Future - VL US Abd Arterial Renal Artery Complete; Future - US Renal W Bladder; Future - losartan (COZAAR) 50 MG tablet; Take 2 Tabs by mouth daily. Dizziness MRI/MRA did not reveal a particular cause. Suspect this may be due to either a positional vertigo asshe mention she was dizzy when she turns her head to the side. Possible blood pressure could be contributing as well. Await echocardiogram as above. Peripheral edema Again, likely secondary to her blood pressure changes as this has only been present for the last couple of weeks and has been very mild. Check additional laboratories to look for secondary causes of this. Await echocardiogram as above. - Alanine Aminotransferase - ALT (SGPT); Future - Albumin (Serum); Future - Alkaline Phosphatase Total (ALK); Future - Aspartate Aminotransferase (AST); Future - Bilirubin Total & Direct; Future - Total Protein; Future - UA (Micro if Positive) (CLINIC); Future Bilateral low back pain without sciatica, unspecified chronicity (HRC) Suspect musculoskeletal from her moving boxes around recently. If this persists or changes, would beseen again. Indicates that this is getting better. See back based on above, sooner as needed. I did stress to her that if she develops any chest pain, shortness of breath, headaches, lightheadedness or dizziness, she needs to be seen in the emergency department again. She is clear in her understanding of this. This note was generated using voice recognition software and may contain typographical errors. documented in this encounter Plan of Treatment Not on filedocumented as of this encounter Results US Renal W Bladder (08/09/2017 9:10 AM CDT) Anatomical Region Laterality Modality Abdomen, Pelvis Ultrasound Specimen (Source) Anatomical Collection Method Collection Time Re ceived Time Location / / Volume Laterality 08/09/2017 8:44 AM CDT Impressions 08/09/2017 9:16 AM CDT IMPRESSION: Normal renal ultrasound. Narrative 08/09/2017 9:16 AM CDT COMPARISON: ??None. FINDINGS: ?? Right kidney: Measures 9.7 x 3.9 x 4.4 c m. ??Appears unremarkable. Left kidney: Measures ??11.6 x 6.0 x 4.6 cm. Appears unremarkable. Urinary bladder: Unremarkable as imaged. . Procedure Note Benson Gale MD - 08/09/2017Formattin g of this note might be different from the original. COMPARISON: None. FINDINGS: Right kidney: Measures 9.7 x 3.9 x 4.4 c m. Appears unremarkable. Left kidney: Measures 11.6 x 6.0 x 4.6 c m. Appears unremarkable. Urinary bladder: Unremarkable as imaged. . IMPRESSION IMPRESSION: Normal renal ultrasound. Wallace Johansen MD RAD US Echocardiogram (08/08/2017 11:07 AM CDT) Specimen (Source) Anatomical Collection Method Collection Time Re ceived Time Location / / Volume Laterality 08/08/2017 11:07 AM CDT Narrative PN ECHO - 08/08/2017 1:12 PM CDT ECHOCARDIOGRAM. Date: 08/08/2017 Start: 11:07 AM [facility]ilit [facility] CONCLUSIONS Left ventricular ejection fraction is vi sually estimated at 60%. Mild (1.1-1.3 cm) concentric wall thicke richard consistent with left ventricular hypertrophy is present. No significant valvular abnormalities we re identified. FINDINGS MITRAL VALVE Normal mitral valve structure and functi on. AORTIC VALVE There is mild aortic sclerosis. The aortic valve is tricuspid. TRICUSPID VALVE Normal tricuspid valve structure and fun ction. Trace (physiologic) tricuspid regurgitat ion. Pulmonary artery systolic pressure estim ate is normal. PULMONIC VALVE Normal pulmonic valve structure and func tion. LEFT ATRIUM Left atrial volume index is 25 mL/m^2. ( Normal <34mL/m^2). LEFT VENTRICLE Left ventricular chamber size is normal. Mild (1.1-1.3 cm) concentric wall thicke richard consistent with left ventricular hypertrophy is present. Mild (1.1-1.3 cm) concentric wall thicke richard consistent with left ventricular hypertrophy is present. Left ventricular ejection fraction is vi sually estimated at 60%. Normal left ventricular diastolic functi on for age. RIGHT ATRIUM Normal right atrium. RIGHT VENTRICLE Normal right ventricle size and normal g lobal function. PERICARDIAL EFFUSION There is no pericardial effusion. MISCELLANEOUS The following segments of the aorta are normal in size: sinuses of Valsalva, sinotubular ridge, ascending a norm. The inferior vena cava is normal. M-MODE/2D MEASUREMENTS & CALCULATIONS LV Diastolic Dimension: 4.24 cm LV PW Diastolic: 0.91 cm Septum Diastolic: 0.99 cm ?LA Dimension: 3.7 cm ?Aortic Annulus: 2.2 cm ?LA Area: 17.8 cm^2 LV Systolic Dimension: 2.39 cm ? LA/Aorta: 1.68 LV Volume Diastolic: 76.2 ml LV Volume Systolic: 13.7 ml ?LA volume index: 25.1 LV EDV/LV EDV Index: 76.2 ml/39 m^2 ?ml/m^2 LV ESV/LV ESV Index: 13.7 ml/7 m^2EF Estimated: 60 % DOPPLER MEASUREMENTS & CALCULATIONS MV Peak E-Wave: 0.6 m/s MV Peak A-Wave: 0.9 m/s MV E/A Ratio: 0.72 MV Peak Gradient: 1.57 mmHg MV Deceleration Time: 246 msec E' Velocity: 0.04 m/s PROCEDURE Doppler Quality: Good quality pulse, con tinuous wave, and color Doppler was performed and interpreted. 2-D Quality: Good quality 2-dimensional echo was performed and interpreted. Indications: Hypertension. Contrast Medium: Not Applicable. Height: 64 inches Weight: 199 pounds BSA : 1.95 m^2 BMI: 34.16 kg/m^2 Rhythm: SinusBP: 146/90 mmHg Gender: ?Female *Patient educated on test, all questions answered by: NR . SIGNATURE DEMOGRAPHICS Patient Name ?JUAREZ MCLEAN I ?Room Number ? OUTPT Patient Number ??[id number] ?Date of Study ? 08/08/2017 Accession ? [id number] ? Inte rpreting ?Alphonso Colmenares MD Number ?Physician Date of ?? 1940 ?Kimberlyn dale Physician ??LORAINE Rodríguez Primary ? LORAINE SCHULTZ ??Darren grapher ? NR, [facility] Physician ? A ? Attending Physician LORAINE Rodríguez Procedure Note Alphonso Comlenares MD - 08/08/2017Format ting of this note might be different from the original. ECHOCARDIOGRAM. Date: 08/08/2017 Start: 11:07 AM [facility]ilit [facility] CONCLUSIONS Left ventricular ejection fraction is vi sually estimated at 60%. Mild (1.1-1.3 cm) concentric wall thicke richard consistent with left ventricular hypertrophy is present. No significant valvular abnormalities we re identified. FINDINGS MITRAL VALVE Normal mitral valve structure and functi on. AORTIC VALVE There is mild aortic sclerosis. The aortic valve is tricuspid. TRICUSPID VALVE Normal tricuspid valve structure and fun ction. Trace (physiologic) tricuspid regurgitat ion. Pulmonary artery systolic pressure estim ate is normal. PULMONIC VALVE Normal pulmonic valve structure and func tion. LEFT ATRIUM Left atrial volume index is 25 mL/m^2. ( Normal <34mL/m^2). LEFT VENTRICLE Left ventricular chamber size is normal. Mild (1.1-1.3 cm) concentric wall thicke richard consistent with left ventricular hypertrophy is present. Mild (1.1-1.3 cm) concentric wall thicke richard consistent with left ventricular hypertrophy is present. Left ventricular ejection fraction is vi sually estimated at 60%. Normal left ventricular diastolic functi on for age. RIGHT ATRIUM Normal right atrium. RIGHT VENTRICLE Normal right ventricle size and normal g lobal function. PERICARDIAL EFFUSION There is no pericardial effusion. MISCELLANEOUS The following segments of the aorta are normal in size: sinuses of Valsalva, sinotubular ridge, ascending a norm. The inferior vena cava is normal. M-MODE/2D MEASUREMENTS & CALCULATIONS LV Diastolic Dimension: 4.24 cm LV PW Diastolic: 0.91 cm Septum Diastolic: 0.99 cm LA Dimension: 3.7 cm Aortic Annulus: 2.2 cm LA Area: 17.8 cm^2 LV Systolic Dimension: 2.39 cm LA/Aorta : 1.68 LV Volume Diastolic: 76.2 ml LV Volume Systolic: 13.7 ml LA volume i ndex: 25.1 LV EDV/LV EDV Index: 76.2 ml/39 m^2 ml/ m^2 LV ESV/LV ESV Index: 13.7 ml/7 m^2EF Estimated: 60 % DOPPLER MEASUREMENTS & CALCULATIONS MV Peak E-Wave: 0.6 m/s MV Peak A-Wave: 0.9 m/s MV E/A Ratio: 0.72 MV Peak Gradient: 1.57 mmHg MV Deceleration Time: 246 msec E' Velocity: 0.04 m/s PROCEDURE Doppler Quality: Good quality pulse, con tinuous wave, and color Doppler was performed and interpreted. 2-D Quality: Good quality 2-dimensional echo was performed and interpreted. Indications: Hypertension. Contrast Medium: Not Applicable. Height: 64 inches Weight: 199 pounds BSA : 1.95 m^2 BMI: 34.16 kg/m^2 Rhythm: SinusBP: 146/90 mmHg Gender: Female *Patient educated on test, all questions answered by: NR . SIGNATURE DEMOGRAPHICS Patient Name JUAREZ MCLEAN I Room Number OUT PT Patient Number [id number] Date of Study 1 Interpreting Alphonso Colmenares MD Number Physician Date of 1940 Ordering Physi consuelo Rodríguez Primary LORAINE SCHULTZ Inspector Watch Assembly NR, RD Physician A Attending Physician LORAINE Rodríguez Wallace Johansen MD PN ECHO ORDERABLES Performing Organization Address City/State/ZIP Code Phon e Number PN ECHO VL US Abd Arterial Renal Artery Complete (08/08/2017 10:01 AM CDT) Anatomical Region Laterality Modality Vascular, Abdomen Ultrasound Specimen (Source) Anatomical Location Collection Method / Collectio n Time Received Time / Laterality Volume Impressions 08/08/2017 3:23 PM CDT Patent bilateral renal arteries with no evidence of a stenosis. Narrative 08/08/2017 3:23 PM CDT Indication: Hypertension A duplex ultrasound examination with col or flow and Doppler was performed on the aorta and renal arteries bilatera lly. AORTA The abdominal aorta is normal in caliber with no evidence of aneurysmal dilation (PSV 116cm/s). RIGHT KIDNEY/RENAL ARTERY The renal length is normal at 10.6cm. No hydronephrosis. The resistive indices of the segmental a rteries are normal and range from 0.68 to 0.71. There is no evidence of a significant in crease in blood flow velocities in the renal artery. The right renal vein was visualized and demonstrates normal phasic blood flow. LEFT KIDNEY/RENAL ARTERY The renal length is normal at 11.1cm. No hydronephrosis. The resistive indices of the segmental a rteries are normal and range from 0.69 to 0.73. There is no evidence of a significant in crease in blood flow velocities in the renal artery. The left renal vein was visualized and d emonstrates normal phasic blood flow. Wallace Johansen MD RAD VASCULAR US UA (Micro if Positive) (CLINIC) (08/03/2017 12:04 PM CDT) [facility] Method Time Signature Urine Type URINE:clean PN SOFT cat Turbidity Clear Clear PN SOFT U BILI Negative Negative PN SOFT Blood Urine Negative Neg - Trace PN SOFT Glucose, Negative Neg-30 PN SOFT Qualitative U mg/dL Ketones Negative Negative PN SOFT Leukocyte Negative Negative PN SOFT Esterase Urine Nitrite Urine Negative Negative PN SOFT pH Urine 6.5 5.0 - 8.0 PN SOFT Protein Urine Negative Neg - Trace PN SOFT mg/dL U Specific 1.015 1.005 - PN SOFT Rudyard 1.030 Urobilinogen Negative Negative PN SOFT Urine Eu/dL Specimen Anatomical Collection Method Collection Time Receive d Time (Source) Location / / Volume Laterality Urine 08/03/2017 12:04 08/03/2017 PM CDT 12:04 PM CDT Narrative PN SOFT - 08/03/2017 12:04 PM CDT Performed at [facility], [address] [place] [address] ??CLIA number [id number] Wallace Johansen MD LAB_1 Performing Organization Address City/State/ZIP Code Phon e Number PN SOFT [address] [place] [address] Total Protein (08/03/2017 11:51 AM CDT) athologist Signature Protein Total, 7.2 6.4 - 8.3 PN SOFT Serum g/dL Specimen Anatomical Collection Method Collection Time Receive d Time (Source) Location / / Volume Laterality 08/03/2017 11:51 08/03/2017 3:33 AM CDT PM CDT Narrative PN SOFT - 08/03/2017 4:15 PM [place] [address] CLIA number [id number] Wallace Johansen MD LAB_1 Performing Organization Address [facility] e Number PN SOFT [address] [place] [address] Bilirubin Total & Direct (08/03/2017 11:51 AM CDT) athologist Signature Bilirubin Total 0.6 0.2 - 1.2 PN SOFT mg/dL Bilirubin, 0.3 0.0 - 0.5 PN SOFT Direct mg/dL Specimen Anatomical Collection Method Collection Time Receive d Time (Source) Location / / Volume Laterality 08/03/2017 11:51 08/03/2017 3:33 AM CDT PM CDT Narrative PN SOFT - 08/03/2017 4:15 PM CDT Performed at [address] [address] CLIA number [id number] Wallace Johansen MD LAB_1 Performing Organization Address [facility] e Number PN SOFT [address] [place] [address] Aspartate Aminotransferase (AST) (08/03/2017 11:51 AM CDT) Patholo gist Method Time Signature Aspartate 19 10 - 40 PN SOFT Aminotransferase U/L Specimen Anatomical Collection Method Collection Time Receive d Time (Source) Location / / Volume Laterality 08/03/2017 11:51 08/03/2017 3:33 AM CDT PM CDT Narrative PN SOFT - 08/03/2017 4:15 PM CDT Performed at [address] [address] CLIA number [id number] Wallace Johansen MD LAB_1 Performing Organization Address [facility] Phon e Number SOFT [address] [place] [address] Alkaline Phosphatase Total (ALK) (08/03/2017 11:51 AM CDT) athologist Signature Alk Phos 76 40 - 150 U/L PN SOFT Specimen Anatomical Collection Method Collection Time Receive d Time (Source) Location / / Volume Laterality 08/03/2017 11:51 08/03/2017 3:33 AM CDT PM CDT Narrative PN SOFT - 08/03/2017 4:15 PM [place] [address] CLIA number [id number] Wallace Johansen MD LAB_1 Performing Organization Address [facility] Phon e Number [address] [address] Albumin (Serum) (08/03/2017 11:51 AM CDT) athologist Signature Albumin 4.1 3.4 - 5.0 PN SOFT g/dL Specimen Anatomical Collection Method Collection Time Receive d Time (Source) Location / / Volume Laterality 08/03/2017 11:51 08/03/2017 3:33 AM CDT PM CDT Narrative PN SOFT - 08/03/2017 4:15 PM CDT Performed at [address] [address] CLIA number [id number] Wallace Johansen MD LAB_1 Performing Organization Address [facility] Phon e Number SOFT [address] [place] [address] Alanine Aminotransferase - ALT (SGPT) (08/03/2017 11:51 AM CDT) Patholo gist Method Time Signature Alanine 15 9 - 55 PN SOFT Aminotransferase U/L Specimen Anatomical Collection Method Collection Time Receive d Time (Source) Location / / Volume Laterality 08/03/2017 11:51 08/03/2017 3:33 AM CDT PM CDT Narrative PN SOFT - 08/03/2017 4:15 PM CDT Performed at [facility], [address] [place] [address] CLIA number [id number] Wallace Johansen MD LAB_1 Performing Organization Address City/State/[facility] Code Phon e Number PN SOFT [address] [place] [address] Metanephrines Plasma (08/03/2017 11:51 AM CDT) [facility] Method Time Signature Plasma 0.46 0.00 - PN SOFT Normetanephrine 0.89 nmol/L Plasma Metanephrine 0.13 0.00 - PN SOFT 0.49 nmol/L Metanephrine See Note PN SOFT Interpretation Comment: INTERPRETIVE INFORMATION: Metanephrines, Plasma (Free) This test is useful in the detection of pheochromocytoma, a rare neuroendocrine tumor. The majority of patients with pheochromocytoma have a plasma normetane phrine concentration in excess of 2.2 nmol/L an d/or a metanephrine concentration in excess of 1.1 nmol/L. I ncreased concentrations of these analytes serve a s confirmation for diagnosis. Patients with essential hyper tension and plasma concentrations of normetanephrine below 0.9 nmol/L and a metanephrine concentration below 0.5 nmo l/L, can be excluded from further testing. If clinic al suspicion remains, repeat testing or testing for m etanephrines in a 24-hr. urine specimen should be consider ed. See Compliance Statement B: [facility]/ CS Performed by [facility], [address] [place] [id number] [email or web address], Edgar Phelan MD - Lab . Director Specimen Anatomical Collection Method Collection Time Receive d Time (Source) Location / / Volume Laterality 08/03/2017 11:51 08/03/2017 3:26 AM CDT PM CDT Narrative PN SOFT - 08/06/2017 3:27 PM CDT Performed at [facility] [address] [place] [address] CLIA number [id number] Wallace Johansen MD LAB_1 Performing Organization Address City/[facility]/ZIP Code Phon e Number PN SOFT [address] [place] [address] Complete Blood Count W/Diff (08/03/2017 11:51 AM CDT) athologist Signature White Blood Cell 6.1 3.8 - 11.0 PN SOFT Count k/cmm Red Blood Cell 4.65 3.70 - PN SOFT Count 5.20 m/cmm Hemoglobin 13.6 11.8 - PN SOFT 15.5 g/dL Hematocrit 41.4 35.0 - PN SOFT 46.0 % Mean Corpuscular 89.0 80.0 - PN SOFT Volume 100.0 fL RDW 12.9 11.0 - PN SOFT 15.0 % Platelet Count 186 140 - 450 PN SOFT k/cmm Specimen Anatomical Collection Method Collection Time Receive d Time (Source) Location / / Volume Laterality 08/03/2017 11:51 08/03/2017 AM CDT 11:50 AM CDT Narrative PN SOFT - 08/03/2017 11:54 AM CDT Performed at [facility], [employer] [place] [address] ??CLIA number [id number] Wallace Johansen MD LAB_1 Performing Organization Address [facility] Code Phon e Number PN SOFT [address] [place] [address] TSH with Free T4 (if TSH Abnormal) (08/03/2017 11:51 AM CDT) athologist Signature Thyroid 3.17 0.30 - PN SOFT Stimulating 4.50 Hormone uIU/mL Specimen Anatomical Collection Method Collection Time Receive d Time (Source) Location / / Volume Laterality 08/03/2017 11:51 08/03/2017 3:33 AM CDT PM CDT Narrative PN SOFT - 08/03/2017 4:44 PM CDT Performed at [facility], [address] [place] [address] CLIA number [id number] Wallace Johansen MD LAB_1 Performing Organization Address City/[facility]/ZIP Code Phon e Number PN SOFT [address] [place] [address] Electrolyte Panel (08/03/2017 11:51 AM CDT) athologist Signature Sodium 142 136 - 145 PN SOFT mmol/L Potassium 3.8 3.5 - 5.2 PN SOFT mmol/L Chloride 107 98 - 109 PN SOFT mmol/L CO2 25 22 - 31 PN SOFT mmol/L Specimen Anatomical Collection Method Collection Time Receive d Time (Source) Location / / Volume Laterality 08/03/2017 11:51 08/03/2017 3:33 AM CDT PM CDT Narrative PN SOFT - 08/03/2017 4:15 [place] [address] CLIA number [id number] Wallace Johansen MD LAB_1 Performing Organization Address [facility] Phon e Number PN SOFT [address] [place] [address] Creatinine (08/03/2017 11:51 AM CDT) athologist Signature Creatinine Serum 0.74 0.55 - PN SOFT 1.02 mg/dL Est GFR >60 >60 PN SOFT Am mL/min/1.7 3m2 Est GFR Non-Afr >60 >60 PN SOFT Am mL/min/1.7 3m2 Comment: Normal>60, moderate decrease 30 - 59, se rosalinda decrease 15 - 29, renal failure <15 mL/min/1.73 m2 NOTE: ??Choose the eGFR result above alissa ropriate for the race of the patient. Specimen Anatomical Collection Method Collection Time Receive d Time (Source) Location / / Volume Laterality 08/03/2017 11:51 08/03/2017 3:33 AM CDT PM CDT Narrative PN SOFT - 08/03/2017 4:15 PM CDT Performed at [address] [address] CLIA number [id number] Wallace Johansen MD LAB_1 Performing Organization Address [facility] Phon e Number PN SOFT [address] [place] [address] Calcium (08/03/2017 11:51 AM CDT) athologist Signature Calcium 9.4 8.4 - 10.2 PN SOFT mg/dL Specimen Anatomical Collection Method Collection Time Receive d Time (Source) Location / / Volume Laterality 08/03/2017 11:51 08/03/2017 3:33 AM CDT PM CDT Narrative PN SOFT - 08/03/2017 4:15 PM CDT Performed at [address] [address] CLIA number [id number] Wallace Johansen MD LAB_1 Performing Organization Address [facility] Phon e Number PN SOFT [address] [place] [address] BUN (08/03/2017 11:51 AM CDT) athologist Signature Blood Urea 13 9 - 26 PN SOFT Nitrogen mg/dL Specimen Anatomical Collection Method Collection Time Receive d Time (Source) Location / / Volume Laterality 08/03/2017 11:51 08/03/2017 3:33 AM CDT PM CDT Narrative PN SOFT - 08/03/2017 4:15 PM CDT Performed at [address] [address] CLIA number [id number] Wallace Johansen MD LAB_1 Performing Organization Address [facility] Phon e Number PN SOFT [address] [place] [address] documented in this encounter Visit Diagnoses Diagnosis Essential hypertension (HRC) - Primary Unspecified essential hypertension Dizziness Dizziness and giddiness Peripheral edema Edema Bilateral low back pain without sciatica , unspecified chronicity Essential hypertension (HRC) Unspecified essential hypertension Peripheral edema Edema Essential hypertension (HRC) Unspecified essential hypertension Essential hypertension (HRC) Unspecified essential hypertension Essential hypertension (HRC) Unspecified essential hypertension documented in this encounter Care Teams Senior Research Fellow Relationship Specialty Start Date End Date Veronica Heredia DO PCP - General Family Practice 03/22/[address] [place] [address] documented as of this encounter
--- OUTSIDE RECORDS SUMMARY | 2022-08-15 14:55 | XMS_ITS | Encounter Summary ---
:1940 Author Organization [facility] Address [address], [place] [address] Care Team Providers Name Role Phone Veronica Heredia DO Primary Care Provider Reason for Visit Reason Comments DIZZINESS Encounter Details Date Type Department Care Team Description 08/01/2017 Office Visit Sallie [place] Hypertensi ve urgency (Primary Dx); Medicine A, DO Essential hypertension; [address] [facility] [address] [facility] [address] [facility] [place] [address] [facility] [place] [place] [phone] Social History Tobacco Use Types Packs/Day Years [...] Sign Reading Time Taken Comments Blood Pressure 182/127 08/01/2017 4:22 PM CDT Pulse 92 08/01/2017 2:40 PM CDT Temperature - - Respiratory Rate - - Oxygen Saturation - - Inhaled Oxygen Concentration - - Weight 92.7 kg (204 lb 6.4 oz) 08/01/2017 2:40 PM CDT Height - - Body Mass Index 35.55 04/19/2017 8:45 AM CDT documented in this encounter Progress Notes Sallie Haji DO - 08/01/2017 2:30 PM CDT SUBJECTIVE: Michele Angulo is a 76 y.o. female who presents with concerns for dizziness, weakness and shakiness. Patient states the last 2 days now she has not felt quite right. She states that she feels lightheaded and dizzy. Today she awoke and did not feel quite right, felt shaky. She also reports that she has hadsome intermittent episodes of lower extremity weakness. She denies any headaches, chest pain or shortness of breath. Does report more fatigued than normal. Decreased appetite but no nausea or vomiting.Patient does have a home blood pressure cuff monitor but has not been taking it recently. She does take medication for hypertension. She is currently on losartan 50 mg daily and metoprolol 50 mg at bedtime. She denies any known cardiac disease. She has not been monitoring her blood pressures recently. Patient lives alone. She has no family nearby. She is planning to travel to [place] within the next week for the winter. Outpatient Encounter Prescriptions as of 08/01/2017 Medication Sig Dispense Refill ??? aspirin EC 81 MG enteric coated tablet Take 1 tablet by mouth daily (every 24 hours). 13 ??? cholecalciferol (VITAMIN D3) 1000 UNITS tablet Take 1 tablet by mouth daily (every 24 hours). 90tablet 3 ??? metoprolol succinate (TOPROL XL) 50 MG 24 hour release tablet Take 1 Tab by mouth daily. (SEE COMMENTS) 90 Tab 2 ??? simvastatin (ZOCOR) 20 MG tablet Take 1 Tab by mouth daily. 90 Tab 3 ??? [DISCONTINUED] losartan (COZAAR) 50 MG tablet Take 1 Tab by mouth daily. 90 Tab 3 No facility-administered encounter medications on file as of 08/01/2017. Allergies Allergen Reactions ??? Other PN: LW Other1: -IV DYE/ANAPHYLAXIS ??? Penicillins PN: LW Reaction: HIVES ??? Sulfa Antibiotics PN: LW Reaction: HIVES Past Medical History: Diagnosis Date ??? Aspirin long-term use 04/16/2015 ASA therapy 75-162 mg/day is recommended for primary CVD prevention because patient -Is female 57 years who have at least one additional major risk factor such as: -HTN -Dyslipdemia ??? Calculus of kidney right side diagnosed CT scan in [place] asymptomatic 04/18/2016 ??? H/O colonoscopy 2007 due 2018 04/16/2015 ??? Hyperlipidemia 07/12/2005 takes zocor ??? Hypertension 04/11/2003 takes atenolol cozaar ??? Obesity (HRC) 04/30/2006 LW Onset: [id number] ??? Postmenopausal 04/16/2015 resolved ??? Zoster Social History Substance Use Topics ??? Smoking status: Never Smoker ??? Smokeless tobacco: Never Used ??? Alcohol use Yes Comment: Alcoholic Drinks/day: 1-2 x per year Family History Problem Relation Age of Onset [...] History ??? Cancer, Endometrial Negative Family History ROS: Pertinent items are noted in HPI. OBJECTIVE: BP (!) 182/127 Pulse 92 Wt 204 lb 6.4 oz (92.7 kg) BMI 35.55 kg/m2 Estimated body mass index is 35.55 kg/(m^2) as calculated from the following: Height as of 04/19/17: 5' 3.58 (1.615 m). Weight as of this encounter: 204 lb 6.4 oz (92.7 kg). General appearance: alert, cooperative, no distress, appears stated age, anxious Ears: normal TM's and external ear canals AU Throat: lips, mucosa, and tongue normal; teeth and gums normal Neck: supple, symmetrical, trachea midline, no adenopathy, thyroid: not enlarged, symmetric, no tenderness/mass/nodules and no carotid bruit Lungs: clear to auscultation bilaterally Heart: regular rate and rhythm Abdomen: soft, non-tender; bowel sounds normal; no masses, no organomegaly Extremities: edema Trace in lower extremities Neurologic: Alert and oriented X 3, normal strength and tone. Normal symmetric reflexes. Normal coordination and gait Mental status: alertness: alert, orientation: time, date, place, affect: Anxious, thought content exhibits tangential connections, Difficult to get answers from patient. Cranial nerves: normal Coordination: Romberg test normal Gait: Normal Michele was seen today for dizziness. Diagnoses and all orders for this visit: Hypertensive urgency Essential hypertension (HRC) - ECG 12 Lead Outpatient Dizziness EKG in clinic reviewed with patient. Normal sinus rhythm with possible changes for anterior infarct noted. Reviewed with EKG from 2007, no significant changes. At time of appointment, awaiting cardiology read. Blood pressures persistently elevated in clinic. Blood pressures noted to be 181/99, 156/106, 192/92, 180/99, 182/127. Patient reported that she does not feel comfortable going home without treatment for her blood pressure. We discussed further evaluation with lab studies and possible imaging due to hypertension urgency. Patient was unable to contact family or friends for transport to ER. Patient requested EMS to be called for transport to emergency room for further evaluation and treatment. Nursing staff notify ER. Patient stated she understood and agreed with plan. documented in this encounter Plan of Treatment Not on filedocumented as of this encounter Procedures Procedure Name Priority Date/Time Associated Diagnosis Comme nts ECG 12 LEAD Routine 08/01/2017 3:18 PM Essential Results f or this OUTPATIENT CDT hypertension procedure are i n the results section. documented in this encounter Results ECG 12 Lead Outpatient (08/01/2017 3:18 PM CDT) P athologist Signature Ventricular Rate 77 BPM [facility] Atrial Rate 77 BPM [facility] P-R Interval 184 ms [facility] QRS Duration 86 ms [facility] QT 402 ms [facility] QTc 454 ms [facility] P Mobile 44 degrees [facility] R Mobile 16 degrees [facility] T Mobile 4 degrees [facility] Specimen (Source) Anatomical Collection Method Collection Time Re ceived Time Location / / Volume Laterality 08/01/2017 3:18 PM CDT Narrative [facility] - 08/01/2017 3:52 PM CDT Sinus rhythm Possible Left atrial enlargement Possible Anterior infarct (cited on or b efore 01-AUG-2017) Abnormal ECG When compared with ECG of 09-MAR-2008 11 :37, No significant change was found Confirmed by PONCE GERMAIN ([id number]), medical editor OCTAVIO LOZANO ([id number]) on 08/01/2017 3:52:09 PM Procedure Note Ponce Germain MD / Epic, Interna l Processing - 02/01/2020 Sinus rhythm Possible Left atrial enlargement Possible Anterior infarct (cited on or b efore 01-AUG-2017) Abnormal ECG When compared with ECG of 09-MAR-2008 11 :37, No significant change was found Confirmed by PONCE GERMAIN ([id number]), medical editor OCTAVIO LOZANO ([id number]) on 08/01/2017 3:52:09 PM Sallie BALDWIN ECG ORDERABLES Performing Organization Address City/State/ZIP Code Phon e Number [facility]USE [facility] [address] [place] [address] documented in this encounter Visit Diagnoses Diagnosis Hypertensive urgency - Primary Essential hypertension (HRC) Unspecified essential hypertension Dizziness Dizziness and giddiness documented in this encounter Care Teams Appraisal Coordinator Relationship Specialty Start Date End Date Veronica Heredia DO PCP - General Family Practice 03/22/17 [address] [facility] [place] [address] documented as of this encounter
--- OUTSIDE RECORDS SUMMARY | 2022-08-15 14:55 | XMS_ITS | Encounter Summary ---
:1940 Author Organization [facility] Address [address] [place] [address] Care Team Providers Name Role Phone Veronica Heredia DO Primary Care Provider Reason for Referral Procedure/Equipment (Routine) - Incomplete Specialty Diagnoses / Procedures Referred By Contact Refer red To Contact Diagnoses Abdominal pain, unspecified abdominal location Right flank pain Mikey Vergara MD Procedures US Abd RUQ Organs [address] [facility] [place] [address] Referral ID Status Reason Start Date Expiration Date Visits V isits Requested Authorized [id number] Incomplete 08/14/2017 11/13/2018 1 1 Reason for Visit Reason Comments GI Concerns gas\bloated x 1.5 weeks Encounter Details Date Type Department Care Team Description 08/14/2017 Office Visit Sawyer Hernandez Mikey Vergara, Abdominal p ain, unspecified abdominal location (Primary Dx); Medicine MD Right flank pain; [address] [facility] [address] [place] History of gastroesophageal reflux (GERD) [facility] [place] [address] [place] [phone] Social History Tobacco Use Types Packs/Day Years [...] Reading Time Taken Comments Blood Pressure 134/86 08/14/2017 9:51 AM CDT Pulse 72 08/14/2017 9:51 AM CDT Temperature - - Respiratory Rate - - Oxygen Saturation - - Inhaled Oxygen Concentration - - Weight 90.7 kg (200 lb) 08/14/2017 9:51 AM CDT Height - - Body Mass Index 34.33 08/04/2017 8:39 PM CDT documented in this encounter Progress Notes Mikey Vergara MD - 08/14/2017 10:00 AM CDT Subjective: Patient ID: Michele Angulo is a 76 y.o. female. Chief Complaint: Gas/bloated x 1 week HPI History of gerd on problem list. pepcid 1 bid x 2 weeks ordered 08/05 from ER. That note was reviewedas she went in for abdominal bloating. She was seen 3 days prior in er. She was seen 08/[address] Heredia. This note was reviewed as well. Then she was asked to follow up in 3 - 4 weeks as she started hctz 12.5 for BP. Her BP looks good today. She still has her stress echo pending. Today, she notes: she is feeling crappy she notes. Last Sunday she thought she was feeling better.She notes the new medication hctz was started, but she stopped this because she got dizzy. Yesterday, Sunday, she was having increased gas again. This was similar to her visit to the ER on 08/04. Again she is not sure if its food related. It comes and goes. Symptoms last 2 hours then goes away. She is here today because she had more gas and feeling terrible. Today it is back again. It is discomforting and frustrating. She is unsure of her self. She has a history of gerd in the past. She had been off meds for that for a year prior to these episodes. Originally her first visit to the ER was for HTN but that is controlled. She thinks this is better with the change in BP meds. Discomfort is up under the ribs bilaterally. No family history of GI cancer. No unintended weight loss, she has been trying to lose weight but in the last few days she thinks she has lost weight through modifying her diet. At home was 204 and now 197 in past 2 weeks. She has cut out coffee and is moregrazing now. gerd sx started she thinks after 55. No food sticking. No painful swallowing. No jaundice or masses in the abdomen that she is aware of. She continues on pepcid. Eating doesn't make symptoms worse while she is eating but she has some symptoms 30 - 180 minutes later. No vomiting but some nausea. She had diarrhea last Sunday but that passed. No nsaids. No early satiety. No epigastric pain. No burning in the chest like gerd. No post prandial fullness. When has high intensity of pressure/bloating its all the way across her abdomen, but new history includes increased discomfort on the right flank. No change in stool frequency. She has been dealing with this since about 07/31/17 Physical activity is not related to her symptoms. No blood in stool. She feels stress with her symptoms Review of Systems As above Vitals: 08/14/17 0951 BP: 134/86 Pulse: 72 Estimated body mass index is 34.33 kg/(m^2) as calculated from the following: Height as of 08/04/17: 5' 4 (1.626 m). Weight as of this encounter: 200 lb (90.7 kg). Wt Readings from Last 3 Encounters: 08/14/17 200 lb (90.7 kg) 08/10/17 199 lb 3.2 oz (90.4 kg) 08/04/17 199 lb (90.3 kg) Objective: Physical Exam Nursing note and vitals reviewed. Constitutional: is oriented to person, place, and time. appears well-developed and well-nourished. No distress. Head: Normocephalic and atraumatic. Cardiovascular: Normal rate, regular rhythm, normal heart sounds and intact distal pulses. Exam reveals no gallop and no friction rub. No murmur heard. Pulmonary/Chest: Effort normal and breath sounds normal. No respiratory distress. has no wheezes. has no rales. exhibits no tenderness. Abd: Soft, NTTP, no HSM, no rebound tenderness, negative murphys sign, negative mcburneys point Neurological: is alert and oriented to person, place, and time. Skin: is not diaphoretic. Psychiatric: has a normal mood and affect. behavior is normal. Judgment and thought content normal. Assessment: ICD-10-CM 1. Abdominal pain, unspecified abdominal location R10.9 H. Pylori Antigen, Stool US Abd RUQ Organs 2. Right flank pain R10.9 US Abd RUQ Organs 3. History of gastroesophageal reflux (GERD) Z87.19 H. Pylori Antigen, Stool Plan: ) unclear what is causing her symptoms. So far CBC, Ua, BMP, troponins, LFT's, lipase, Mag, BNP, metanephrines, TSH, calcium all normal. No clear obvious cause. Continue pepcid for now. May try prn tums and I think a week of zantac twice a day might help with her history of gerd and soft history now of post prandial symptoms. We will check h. Pylori stool testing since symptoms have returned andRUQ U/s since she gave a new piece of history which is some right flank symptoms, sometimes, after eating. If any positives on above testing we will treat if negative I would consider getting the CT in another week, rule out malignancy with vague abd symptoms in 76 y/o if things do not settle down with ppi and h2rb. Consider down the road if CT negative too perhaps this is gastroparesis (?) or IBS in the early stages (?) documented in this encounter Plan of Treatment Not on filedocumented as of this encounter Results US Abd RUQ Organs [...] maximum of 9 mm. Mikey Vergara MD [facility] H. Pylori Antigen, Stool (08/14/2017 1:45 PM CDT) athologist Signature H Pylori Ag, Negative Negative PN SOFT Stl Comment: Performed at [facility], [address] [place] [address] CLIA Number [id number] Specimen Anatomical Collection Method Collection Time Receive d Time (Source) Location / / Volume Laterality 08/14/2017 1:45 PM 7 8:54 CDT PM CDT Mikey Vergara MD LAB_1 Performing Organization Address City/State/ZIP Code Phon e Number PN SOFT [address] [place] [address] documented in this encounter Visit Diagnoses Diagnosis Abdominal pain, unspecified abdominal lo cation - Primary Right flank pain Abdominal pain, unspecified site History of gastroesophageal reflux (GERD ) Personal history of other diseases of di gestive system Abdominal pain, unspecified abdominal lo cation Right flank pain Abdominal pain, unspecified site documented in this encounter Care Teams Documentation Clerk Relationship Specialty Start Date End Date Veronica Heredia DO PCP - General Family Practice 03/22/17 [address] [facility] [place] [address] documented as of this encounter
--- OUTSIDE RECORDS SUMMARY | 2022-08-15 14:55 | XMS_ITS | Encounter Summary ---
:1940 Author Organization [facility] Address [address] [place] [address] Care Team Providers Name Role Phone Veronica Heredia DO Primary Care Provider Reason for Visit Reason Onset Date Comments Appt. Work In Request 08/01/2017 Encounter Details Date Type Department Care Team Description 08/01/2017 Nurse Triage Sawyer Hernandez Veronica Heredia, [place] [address] [place] [address] [facility] [place] [place] [phone] [address] Social History Tobacco Use Types Packs/Day Years [...] encounter Nursing Notes Caterina Jacobs RN - 08/01/2017 8:30 AM CDT Reason for Disposition ??? Caller has NON-URGENT medication question about med that PCP prescribed and triager unable to answer question Protocols used: MEDICATION QUESTION [id number] Some minor episodes of vertigo the last few days, sometimes feels shaky. No other complaints, may have seasonal allergies is another possibility. Appointment scheduled for today. Pt agrees to plan. Vandana Torres - 08/01/2017 7:46 AM CDT Patient states she may have vertigo with an upset stomach. At this time, no symptoms at present, butwants to be worked in. documented in this encounter Plan of Treatment Not on filedocumented as of this encounter Visit Diagnoses Not on filedocumented in this encounter Care Teams Notched Blade Loader Relationship Specialty Start Date End Date Veronica Heredia DO PCP - General Family Practice 03/22/17 [address] [facility] [place] [address] documented as of this encounter
--- OUTSIDE RECORDS SUMMARY | 2022-08-15 14:55 | XMS_ITS | Encounter Summary ---
:1940 Author Organization [facility] Address [address] [place] [address] Care Team Providers Name Role Phone Veronica Heredia DO Primary Care Provider Reason for Visit Procedure/Equipment (Routine) - Incomplete Specialty Diagnoses / Procedures Referred By Contact Refer red To Contact Diagnoses Encounter for screening mammogram for malignant neoplasm of breast Veronica Heredia, DO Procedures MM Mammogram Screening Bilat W CAD [address] [facility] [place] [address] Referral ID Status Reason Start Date Expiration Date Visits V isits Requested Authorized [id number] Incomplete 04/19/2017 07/19/2018 1 1 Encounter Details Date Type Department Care Team Description 05/18/2017 Imaging [facility] [address] Veronica Heredia, DO Encounter for screening Mammography [address] [facility] mammogram for malignant [address] [facility] [address] [place] [address] [phone] Social History Tobacco Use Types Packs/Day Years [...] Associated Diagnosis Comme nts MM MAMMOGRAM Routine 05/18/2017 2:04 PM Encounter for Results for this SCREENING BILAT W CDT screening mammogram pro cedure are in CAD for malignant the results neoplasm of breast section. documented in this encounter Results MM Mammogram Screening Bilat W CAD (05/18/2017 2:04 PM CDT) Anatomical Region Laterality Modality Breast Bilateral Mammography Specimen (Source) Anatomical Location Collection Method / Collectio n Time Received Time / Laterality Volume Impressions 05/18/2017 2:38 PM CDT : ACR BI-RADS Category 1: Negative RECOMMENDATION: Follow Up Imaging in 12 months - Bilateral The results and recommendations of this examination will be communicated to the patient. Narrative 05/18/2017 2:38 PM CDT MM MAMMOGRAM SCREENING BILAT W CAD performed on 05/18/17 Compared to: 07/28/2015 MM Mammogram Scr eening Bilat W Nacho W CAD, 07/27/2014 MM Mammogram Screening Bilat W CAD, and 07/25/2013 MM Mammogram Screening Bilat W CAD FINDINGS: Bilateral screening mammogram was performed with the assistance of Computer-Aided Detection. The breasts have scattered areas of fibroglandular density. There is no radiographic evidence of mal ignancy. ?? Veronica Heredia DO RAD KERMIT documented in this encounter Visit Diagnoses Diagnosis Encounter for screening mammogram for ma lignant neoplasm of breast Other screening mammogram documented in this encounter Care Teams Cement Finisher Helper Relationship Specialty Start Date End Date Veronica Heredia DO PCP - General Family Practice 03/22/17 [address] [facility] [address] [place], [place] [address] documented as of this encounter
--- OUTSIDE RECORDS SUMMARY | 2022-08-15 14:55 | XMS_ITS | Encounter Summary ---
:1940 Author Organization [facility] Address [address] [place] [address] Care Team Providers Name Role Phone Veronica Heredia DO Primary Care Provider Reason for Referral Procedure/Equipment (Routine) - Incomplete Specialty Diagnoses / Procedures Referred By Contact Refer red To Contact Procedures Trista Ritchie MD MR Angio Neck W/WO IV Cont [address] [place], [place] [address] Referral ID Status Reason Start Date Expiration Date Visits V isits Requested Authorized [id number] Incomplete 08/01/2017 10/31/2018 1 1 Procedure/Equipment (Routine) - Incomplete Specialty Diagnoses / Procedures Referred By Contact Refer red To Contact Procedures Trista Ritchie MD MR Angio Head WO IV Cont [address] [place] [id number] 5 Referral ID Status Reason Start Date Expiration Date Visits V isits Requested Authorized [id number] Incomplete 08/01/2017 10/31/2018 1 1 Procedure/Equipment (Routine) - Incomplete Specialty Diagnoses / Procedures Referred By Contact Refer red To Contact Procedures Trista Ritchie MD MR Brain W/WO IV Cont [address] [place], [place] [address] Referral ID Status Reason Start Date Expiration Date Visits V isits Requested Authorized [id number] Incomplete 08/01/2017 10/31/2018 1 1 (Routine) - Closed Specialty Diagnoses / Procedures Referred By Contact Refer red To Contact Procedures Trista Ritchie MD ECG 12 Lead [address] [place], [place] [address] Referral ID Status Reason Start Date Expiration Date Visits Requ ested Visits Authorized [id number] Closed 08/01/2017 10/31/2018 1 1 Reason for Visit Reason Comments HYPERTENSION Encounter Details Date Type Department Care Team Description 08/01/2017 Emergency [facility] Emergency Ye Ritchie MD Essential hypertension; Center [address] [place] [id number] [phone] Social History Tobacco Use Types Packs/Day Years [...] Sign Reading Time Taken Comments Blood Pressure 159/80 08/01/2017 9:18 PM CDT Pulse 92 08/01/2017 9:18 PM CDT Temperature 36.6 ??C (97.9 ??F) 08/01/2017 5:15 PM CDT Respiratory Rate 18 08/01/2017 9:18 PM CDT Oxygen Saturation 96% 08/01/2017 9:18 PM CDT Inhaled Oxygen Concentration - - Weight - - Height - - Body Mass Index - - documented in this encounter Discharge Instructions Discharge InstructionsTrista Ritchie MD - 08/01/2017 9:04 PM CDT High Blood Pressure: Care Instructions Your Care Instructions If your blood pressure is usually above 140/90, you have high blood pressure, or hypertension. That means the top number is 140 or higher or the bottom number is 90 or higher, or both. Despite what a lot of people think, high blood pressure usually doesn't cause headaches or make you feel dizzy or lightheaded. It usually has no symptoms. But it does increase your risk for heart attack, stroke, and kidney or eye damage. The higher your blood pressure, the more your risk increases. Your doctor will give you a goal for your blood pressure. Your goal will be based on your health andyour age. An example of a goal is to keep your blood pressure below 140/90. Lifestyle changes, such as eating healthy and being active, are always important to help lower bloodpressure. You might also take medicine to reach your blood pressure goal. Follow-up care is a figueroa part of your treatment and safety. Be sure to make and go to all appointments, and call your doctor if you are having problems. It's also a good idea to know your test results and keep a list of the medicines you take. How can you care for yourself at home? Medical treatment ?? If you stop taking your medicine, your blood pressure will go back up. You may take one or more types of medicine to lower your blood pressure. Be safe with medicines. Take your medicine exactly as prescribed. Call your doctor if you think you are having a problem with your medicine. ?? Talk to your doctor before you start taking aspirin every day. Aspirin can help certain people lower their risk of a heart attack or stroke. But taking aspirin isn't right for everyone, because it can cause serious bleeding. ?? See your doctor regularly. You may need to see the doctor more often at first or until your bloodpressure comes down. ?? If you are taking blood pressure medicine, talk to your doctor before you take decongestants or anti-inflammatory medicine, such as ibuprofen. Some of these medicines can raise blood pressure. ?? Learn how to check your blood pressure at home. Lifestyle changes ?? Stay at a healthy weight. This is especially important if you put on weight around the waist. Losing even 10 pounds can help you lower your blood pressure. ?? If your doctor recommends it, get more exercise. Walking is a good choice. Bit by bit, increase the amount you walk every day. Try for at least 30 minutes on most days of the week. You also may wantto swim, bike, or do other activities. ?? Avoid or limit alcohol. Talk to your doctor about whether you can drink any alcohol. ?? Try to limit how much sodium you eat to less than 2,300 milligrams (mg) a day. Your doctor may ask you to try to eat less than 1,500 mg a day. ?? Eat plenty of fruits (such as bananas and oranges), vegetables, legumes, whole grains, and low-fat dairy products. ?? Lower the amount of saturated fat in your diet. Saturated fat is found in animal products such asmilk, cheese, and meat. Limiting these foods may help you lose weight and also lower your risk for heart disease. ?? Do not smoke. Smoking increases your risk for heart attack and stroke. If you need help quitting,talk to your doctor about stop-smoking programs and medicines. These can increase your chances of quitting for good. When should you call for help? Call 911 anytime you think you may need emergency care. This may mean having symptoms that suggest that your blood pressure is causing a serious heart or blood vessel problem. Your blood pressure may be over 180/110. For example, call 911 if: ?? You have symptoms of a heart attack. These may include: ?? Chest pain or pressure, or a strange feeling in the chest. ?? Sweating. ?? Shortness of breath. ?? Nausea or vomiting. ?? Pain, pressure, or a strange feeling in the back, neck, jaw, or upper belly or in one or both shoulders or arms. ?? Lightheadedness or sudden weakness. ?? A fast or irregular heartbeat. ?? You have symptoms of a stroke. [...] headache that is different from past headaches. ?? You have severe back or belly pain. Do not wait until your blood pressure comes down on its own. Get help right away. Call your doctor now or seek immediate care if: ?? Your blood pressure is much higher than normal (such as 180/110 or higher), but you don't have symptoms. ?? You think high blood pressure is causing symptoms, such as: ?? Severe headache. ?? Blurry vision. Watch closely for changes in your health, and be sure to contact your doctor if: ?? Your blood pressure measures 140/90 or higher at least 2 times. That means the top number is 140 or higher or the bottom number is 90 or higher, or both. ?? You think you may be having side effects from your blood pressure medicine. ?? Your blood pressure is usually normal, but it goes above normal at least 2 times. Where can you learn more? 1. Go to [employer] or [employer]. 2. Enter X567 in the search box. Current as of: June 12, 2016 Content Version: 11.3 ?? [id number] [employer]. Dizziness: Care Instructions Your Care Instructions Dizziness is the feeling of unsteadiness or fuzziness in your head. It is different than having vertigo, which is a feeling that the room is spinning or that you are moving or falling. It is also different from lightheadedness, which is the feeling that you are about to faint. It can be hard to know what causes dizziness. Some people feel dizzy when they have migraine headaches. Sometimes bouts of flu can make you feel dizzy. Some medical conditions, such as heart problems or high blood pressure, can make you feel dizzy. Many medicines can cause dizziness, including medicines for high blood pressure, pain, or anxiety. If a medicine causes your symptoms, your doctor may recommend that you stop or change the medicine. If it is a problem with your heart, you may need medicine to help your heart work better. If there isno clear reason for your symptoms, your doctor may suggest watching and waiting for a while to see if the dizziness goes away on its own. Follow-up care is a figueroa part of your treatment and safety. Be sure to make and go to all appointments, and call your doctor if you are having problems. It's also a good idea to know your test results and keep a list of the medicines you take. How can you care for yourself at home? ?? If your doctor recommends or prescribes medicine, take it exactly as directed. Call your doctor if you think you are having a problem with your medicine. ?? Do not drive while you feel dizzy. ?? Try to prevent falls. Steps you can take include: ?? Using nonskid mats, adding grab bars near the tub, and using night-lights. ?? Clearing your home so that walkways are free of anything you might trip on. ?? Letting family and friends know that you have been feeling dizzy. This will help them know how tohelp you. When should you call for help? Call 911 anytime you think you may need emergency care. For example, call if: ?? You passed out (lost consciousness). ?? You have dizziness along with symptoms of a heart attack. These may include: ?? Chest pain or pressure, or a strange feeling in the chest. ?? Sweating. ?? Shortness of breath. ?? Nausea or vomiting. ?? Pain, pressure, or a strange feeling in the back, neck, jaw, or upper belly or in one or both shoulders or arms. ?? Lightheadedness or sudden weakness. ?? A fast or irregular heartbeat. ?? You have symptoms of a stroke. [...] seek immediate medical care if: ?? You feel dizzy and have a fever, headache, or ringing in your ears. ?? You have new or increased nausea and vomiting. ?? Your dizziness does not go away or comes back. Watch closely for changes in your health, and be sure to contact your doctor if: ?? You do not get better as expected. Where can you learn more? 1. Go to [employer] or [employer]. 2. Enter Q823 in the search box. Current as of: January 22, 2017 Content Version: 11.3 ?? [id number] [employer]. Discharge Instr - Other OrdersTrista Ritchie MD - 08/01/2017 9:05 PM CDT Take some blood pressure measurements every day or two for the next week. If your top number (systolic) is consistently higher than 150, increase your metoprolol dose to 75mg daily. Call your doctor when you get to [place], and report your blood pressure numbers to him/her. You candiscuss any further medication changes at that time. documented in this encounter Medications at Time of Discharge Medication Sig Dispensed Refills Start Date End Date aspirin EC 81 MG enteric Take 1 tablet by 13 07/1007/29/2018 coated tablet mouth daily (every 24 hours). cholecalciferol (VITAMIN Take 1 tablet by 90 tablet 3 04/1808/22/2017 D3) 1000 UNITS mouth daily (every tabletIndications: Vitamin 24 hours). D deficiency (HRC) losartan (COZAAR) 50 MG Take 1 Tab by 90 Tab 3 7 08/03/2017 tabletIndications: mouth daily. Essential hypertension (HRC) metoprolol succinate Take 1 Tab by 90 Tab 2 07/09/2017 1 (TOPROL XL) 50 MG 24 hour mouth daily. (SEE release tablet COMMENTS) simvastatin (ZOCOR) 20 MG Take 1 Tab by 90 Tab 3 017 05/27/2018 tabletIndications: mouth daily. Hyperlipidemia, unspecified hyperlipidemia type (HRC) documented as of this encounter ED Notes Rebecca Manzano RN - 08/01/2017 9:19 PM CDT The patient will be discharged to home. Patient is alert and oriented x 4 and patient is stable. Patient discharged by: ambulation accompanied by RN. Temp: 36.6 ??C (97.9 ??F) (08/01/17 1715) Pulse: 92 (08/01/172117) Resp: 18 (08/01/172117) BP: (!) 159/80 (08/01/172117) SpO2: 96 % (08/01/172117) Patient rates pain at a level of 0/10 Discharge instructions for high blood pressure, dizziness were provided to patient. Patient verbalizes understanding of discharge instructions, reason for discharge and necessary follow-up care. Trista Ritchie MD - 08/01/2017 5:10 PM CDT Chief Complaint: Elevated blood pressure Dizziness HPI: Michele Angulo is a 76 y.o. female with a history of hypertension, who presents to the emergency center for evaluation of elevated blood pressure. The patient reports that two days ago, she woke up early in the morning around 0130 to go to the restroom, and became very dizzy on the way back to bed. The dizziness eventually resolved, and she felt better when she woke up. She had a mild headache around that time as well, but none now. The patient also has recently experienced heaviness in her legs, therefore she went to her primary care clinic for evaluation. At the clinic, the patient was found to be markedly hypertensive, so she was referred to the emergency department for further evaluation. Patient notes that in the past, she has had a reaction to medications, resulting in dizziness. She wonders if her losartan, which she takes in the morning, has been causing her symptoms. 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 She denies blurry or double vision, shortness of breath, chest pain, nausea, difficulty walking or falling to one side, or coordination difficulties. She denies missing any doses of her medications.Patient exercises five times a week at [facility]. Patient last took her own blood pressure about a week or so ago, and it was 144/74. Cardiac Risk Factors: The patient has a history of hypertension and hyperlipidemia, but no history of diabetes mellitus. The patient has no personal or family history of heart disease. The patient has never smoked tobacco. Medications: aspirin EC 81 MG enteric coated tablet losartan (COZAAR) 50 MG tablet metoprolol succinate (TOPROL XL) 50 MG 24 hour release tablet simvastatin (ZOCOR) 20 MG tablet Allergies: IV dye Penicillins Sulfa antibiotics Past Medical History: Aspirin long-term use Calculus of kidney right side Hyperlipidemia Obesity Postmenopausal Zoster Essential hypertension Esophageal reflux BMI 35.0-35.9,adult Past Surgical History: Bunionectomy Family History: Arthritis Cancer Kidney/Bladder Disease Depression High Blood Pressure Social History: The patient is single, a nonsmoker. Goes to [place] for the winter; plans on leaving tomorrow. Review of Systems Eyes: Negative for visual disturbance. Respiratory: Negative for shortness of breath. Cardiovascular: Negative for chest pain. Gastrointestinal: Negative for nausea. Musculoskeletal: Positive for sensation of leg heaviness. Negative for difficulty walking or falling to one side. Neurological: Positive for dizziness and headaches. Negative for coordination difficulties. All other systems reviewed and are negative. Triage Vitals Temp 08/01/17 1715 36.6 ??C (97.9 ??F) Temp src 08/01/17 1715 Oral Pulse 08/01/17 1715 80 Resp 08/01/17 1715 22 BP 08/01/17 1715 192/92 SpO2 08/01/17 1715 96 % Physical Exam Constitutional: Oriented to person, place, and time. Cooperative. HENT: External ears and nose normal. Mucus membranes are moist. TMs normal. Eyes: Conjunctivae and EOM are normal. Cardiovascular: Normal rate, regular rhythm, normal heart sounds and intact distal pulses. Pulmonary/Chest: Effort normal and breath sounds normal. Abdominal: Soft. Bowel sounds are normal. No distension and no mass. No tenderness. No rebound and no guarding. Musculoskeletal: Normal range of motion. No edema and no tenderness. Neurological: Alert and oriented to person, place, and time. No obvious focal deficits. Cranial nerves intact. Strength and sensation normal. Fine finger movements, rapid alternating movements, heel toshin are normal. Speech is clear. Skin: Skin is warm and dry. No rash noted. EKG: Indication: Hypertension Time: 1951 Interpretation: Normal sinus rhythm Possible Left atrial enlargement Low voltage QRS Cannot rule out Anterior infarct (cited on or before) 01-AUG-2017) Abnormal ECG When compared with ECG of 01-AUG-2017 15:18, No significant change was found Rate: 83 R-Compton: -19 Imaging: MR Angio Neck W/WO IV Cont: Unremarkable MR angiogram of the neck. No evidence for carotid or vertebral artery stenosis or dissection. Results per Radiology (please see formal Radiology report for further details). MR Brain W/WO IV Cont: 1. Mild cerebral and cerebellar volume loss. 2. Mild scattered chronic small vessel ischemic foci within the cerebral hemispheric white matter bilaterally. 3. No evidence for acute infarction, abnormal intracranial enhancement or radiographic evidence for hypertensive encephalopa thy. Results per Radiology (please see formal Radiology report for further details). MR Angio Head WO IV Cont: 1. Mild intracranial stenoses as detailed above. Otherwise unremarkable cranial MR angiogram. 2. No evidence for intracranial aneurysm. Results per Radiology (please see formal Radiology report for further details). Laboratory: CBC with Differential: WBC 6.2 (WNL), Hgb 13.5 (WNL), Plts 179 (WNL) o/w WNL Basic Metabolic Panel: Cr. 0.86 (WNL), Lab glucose 109 (H) o/w WNL CPK: 66 (WNL) Troponin I: <0.03 (WNL) ED Course: Interventions: None Patient placed on cardiac monitors and continuous pulse oximetry. Nursing notes and vitals were reviewed. Past medical records were reviewed. I performed an exam of the patient as detailed above. The above EKG, imaging, and labs were ordered. Findings and plan explained to the patient. I fully addressed and answered all questions and concerns the patient had. The patient was discharged home with instructions regarding supportive care and reasons to return as well as the importance of close follow-up was reviewed. Last EC Vitals: Temp: 36.6 ??C (97.9 ??F) (08/01 1715) Temp src: Oral (08/01 1715) Pulse: 92 (08/01 2118) Resp: 18 (08/01 2118) BP: 159/80 (08/01 2118) SpO2: 96 % (08/01 2118) Impression and Plan: Michele Angulo is a 76 y.o. female with a history of hypertension, who presents today with elevated blood pressure readings in the setting of an episode of vertigo, as well as some lower leg heaviness. She is currently asymptomatic. Blood pressure on arrival was 192/92. She had a normal neurologic exam.EKG did not show any ischemic changes. Troponin and creatinine are normal. I ordered a CK, as she coretta a statin, and I thought perhaps that could be causing some of the leg heaviness. There are no signs of stroke, however with elevated blood pressures, I was concerned that the dizziness might represent some sort of central nervous system process. MRI/MRA shows no evidence of infarct or significant stenosis in the head or neck. The patient's blood pressures came down to 159/80 without intervention. I recommended that she continue to take her blood pressure measurements as an outpatient. If she is consistently in the 150s or above, she could try increasing her metoprolol dose to 75 mg daily. I recom mended that she call her primary care physician in one week to discuss the numbers that she gets, and to discuss if any further changes are needed. Certainly, if she has any new or worsening symptoms, she should seek more immediate medical attention. She is planning to travel to [place] for the winter in the next day or two. She does have a doctor there, whom she will contact when she arrives. Diagnosis: Final diagnoses: [I10] Essential hypertension (HRC) [R42] Dizziness I, Emil Pelayo, am serving as a scribe to document services personally performed by Dr. Ritchie based on my observations and the provider's statements to me. 08/01/2017 [facility] Trista Ritchie MD 08/01/17 [address] [facility] - 08/01/2017 5:08 PM CDT Bed: A01 Expected date: 08/01/17 Expected time: 5:00 PM Means of arrival: Ambulance Comments: Rig 711 76 F high blood pressure Yellow eta 1700 documented in this encounter Plan of Treatment Not on filedocumented as of this encounter Procedures Procedure Name Priority Date/Time Associated Comments Diagnosis ECG 12 LEAD INPATIENT STAT 08/01/2017 7:54 PM Results for this CDT procedure are i n the results section. MR ANGIO HEAD WO IV STAT 08/01/2017 7:45 PM Re sults for this CONT CDT procedure are i n the results section. MR ANGIO NECK W/WO IV STAT 08/01/2017 7:45 PM Results for this CONT CDT procedure are i n the results section. MR BRAIN W/WO IV CONT STAT 08/01/2017 7:45 PM Results for this CDT procedure are i n the results section. COMPLETE BLOOD STAT 08/01/2017 6:10 PM Results for this COUNT-W/DIFF CDT procedure are i n the results section. DIFFERENTIAL STAT 08/01/2017 6:10 PM Results f or this CDT procedure are i n the results section. EMERGENCY CENTER DRAW STAT 08/01/2017 6:09 PM Results for this AND HOLD CDT procedure are i n the results section. ANION GAP STAT 08/01/2017 6:09 PM Results f or this CDT procedure are i n the results section. BASIC METABOLIC PANEL STAT 08/01/2017 6:09 PM Results for this CDT procedure are i n the results section. CK, TOTAL STAT 08/01/2017 6:09 PM Results f or this CDT procedure are i n the results section. TROPONIN I STAT 08/01/2017 6:08 PM Results f or this CDT procedure are i n the results section. documented in this encounter Results ECG 12 Lead (08/01/2017 7:54 PM CDT) P athologist Signature Ventricular Rate 83 BPM MUSE [facility] Atrial Rate 83 BPM [facility]USE [facility] P-R Interval 198 ms MUSE [facility] QRS Duration 88 ms MUSE [facility] QT 378 ms MUSE [facility] QTc 444 ms MUSE [facility] P Compton 58 degrees MUSE GHP R Compton -19 degrees MUSE GHP T Compton 16 degrees MUSE [facility] Specimen (Source) Anatomical Collection Method Collection Time Re ceived Time Location / / Volume Laterality 08/01/2017 7:54 PM CDT Narrative MUSE [facility] - 08/02/2017 8:28 AM CDT Sinus rhythm Possible Left atrial enlargement Low voltage QRS Cannot rule out Anterior infarct (cited on or before 01-AUG-2017) Abnormal ECG When compared with ECG of 01-AUG-2017 15 :18, No significant change was found Confirmed by TRISTA RITCHIE ([id number]), sierra or CAREN DISLA ([id number]) on 08/02/2017 8:28:37 AM Procedure Note Trista Ritchie MD / Epic, Internal Pr ocessing - 02/01/2020 Sinus rhythm Possible Left atrial enlargement Low voltage QRS Cannot rule out Anterior infarct (cited on or before 01-AUG-2017) Abnormal ECG When compared with ECG of 01-AUG-2017 15 :18, No significant change was found Confirmed by TRISTA RITCHIE ([id number]), sierra or CAREN DISLA ([id number]) on 08/02/2017 8:28:37 AM Trista Ritchie MD PN ECG ORDERABLES Performing Organization Address City/State/ZIP Code Phon e Number MUSE [facility] [address] [place] [address] MR Angio Neck W/WO IV Cont (08/01/2017 7:45 PM CDT) Anatomical Region Laterality Modality Neck, Vascular, C-Spine, Skeletal Magnet ic Resonance Specimen (Source) Anatomical Collection Method Collection Time Re ceived Time Location / / Volume Laterality 08/01/2017 6:46 PM CDT Impressions 08/01/2017 8:04 PM CDT IMPRESSION: Unremarkable MR angiogram of the neck. No evidence for carotid or vertebral artery stenosis or dissection. Narrative 08/01/2017 8:04 PM CDT INDICATION: Dizziness, elevated blood pressure ?? TECHNIQUE: ??Xvnz-mk-lfkcno and gadolini um bolus MR angiogram of the neck, 10 mL GADOBUTROL 1 MMOL/ML IV SOLN. ?? COMPARISON: ??None. ?? FINDINGS: MRA neck: Right neck: Right carotid system patent and nonsteno tic. Right vertebral arterial system patent a nd nonstenotic. Left neck: Left carotid system patent and nonstenot ic. Left vertebral arterial system patent an d nonstenotic. Arch: Aortic arch and brachiocephalic vessels appear unremarkable. Procedure Note Eliceo Ellsworth MD - 08/01/2017Formattin g of this note might be different from the original. INDICATION: Dizziness, elevated blood pr essure TECHNIQUE: Dkrr-yg-hszewf and gadolinium bolus MR angiogram of the neck, 10 mL GADOBUTROL 1 MMOL/ML IV SOLN. COMPARISON: None. FINDINGS: MRA neck: Right neck: Right carotid system patent and nonsteno tic. Right vertebral arterial system patent a nd nonstenotic. Left neck: Left carotid system patent and nonstenot ic. Left vertebral arterial system patent an d nonstenotic. Arch: Aortic arch and brachiocephalic vessels appear unremarkable. IMPRESSION IMPRESSION: Unremarkable MR angiogram of the neck. No evidence for carotid or vertebral artery stenosis or dissection. Trista Ritchie MD RAD MRI MR Angio Head WO IV Cont (08/01/2017 7:45 PM CDT) Anatomical Region Laterality Modality Head, Vascular Magnetic Resonance Specimen (Source) Anatomical Collection Method Collection Time Re ceived Time Location / / Volume Laterality 08/01/2017 6:46 PM CDT Impressions 08/01/2017 8:13 PM CDT IMPRESSION: 1. Mild intracranial stenoses as detaile d above. Otherwise unremarkable cranial MR angiogram. 2. No evidence for intracranial aneurysm . Narrative 08/01/2017 8:13 PM CDT INDICATION: Dizziness, elevated blood pressure TECHNIQUE: [id number] MRA of the cir levon of Kim. COMPARISON: None. ?? FINDINGS: Distal internal carotid arteries: Patent and nonstenotic. Anterior cerebral arteries: Patent and n onstenotic. Middle cerebral arteries: Mild stenoses of the M3 segments bilaterally Posterior cerebral arteries: Mild stenos is of the left P3 segment Vertebrobasilar system: Patent and nonst enotic. Procedure Note Eliceo Ellsworth MD - 08/01/2017Formattin g of this note might be different from the original. INDICATION: Dizziness, elevated blood pr essure TECHNIQUE: [id number] MRA of the cir levon of Kim. COMPARISON: None. FINDINGS: Distal internal carotid arteries: Patent and nonstenotic. Anterior cerebral arteries: Patent and n onstenotic. Middle cerebral arteries: Mild stenoses of the M3 segments bilaterally Posterior cerebral arteries: Mild stenos is of the left P3 segment Vertebrobasilar system: Patent and nonst enotic. IMPRESSION IMPRESSION: 1. Mild intracranial stenoses as detaile d above. Otherwise unremarkable cranial MR angiogram. 2. No evidence for intracranial aneurysm . Trista Ritchie MD RAD MRI MR Brain W/WO IV Cont (08/01/2017 7:45 PM CDT) Anatomical Region Laterality Modality Head Magnetic Resonance Specimen (Source) Anatomical Collection Method Collection Time Re ceived Time Location / / Volume Laterality 08/01/2017 6:46 PM CDT Impressions 08/01/2017 7:58 PM CDT IMPRESSION: 1. Mild cerebral and cerebellar volume l oss. 2. Mild scattered chronic small vessel i schemic foci within the cerebral hemispheric white matter bilaterally. 3. No evidence for acute infarction, abn ormal intracranial enhancement or radiographic evidence for hypertensive encephalopathy. Narrative 08/01/2017 7:58 PM CDT INDICATION: Dizziness, elevated blood pressure ?? TECHNIQUE: ??MRI of the head with and wi thout contrast using tumor protocol, 10 mL GADOBUTROL 1 MMOL/ML IV SOLN. COMPARISON: None. FINDINGS: ??Mild cerebral and cerebellar volume loss is present mild chronic small vessel ischemic changes present within the deep white matter of the cerebral hemispheres bilaterally. No evidence for i ntracranial mass, mass effect, abnormal enhancement, acute infarction, flow-void abnormality or corpus callosal signal abnormality. Paranasal sinuses, mastoid air cell regions, sellar region and craniocervical junction unremarkable. Procedure Note Eliceo Ellsworth MD - 08/01/2017Formattin g of this note might be different from the original. INDICATION: Dizziness, elevated blood pr essure TECHNIQUE: MRI of the head with and with out contrast using tumor protocol, 10 mL GADOBUTROL 1 MMOL/ML IV SOLN. COMPARISON: None. FINDINGS: Mild cerebral and cerebellar v olume loss is present mild chronic small vessel ischemic changes present within the deep white matter of the cerebral hemispheres bilaterally. No evidence for intracranial mass, mass effect, abnormal enhancement, acute infarction, flow-void abnormality or corpus callosal signal abnormality. Paranasal sinuses, mastoid air cell regions, sellar region and craniocervical junction unremarkable. IMPRESSION IMPRESSION: 1. Mild cerebral and cerebellar volume l oss. 2. Mild scattered chronic small vessel i schemic foci within the cerebral hemispheric white matter bilaterally. 3. No evidence for acute infarction, abn ormal intracranial enhancement or radiographic evidence for hypertensive encephalopathy. Trista Ritchie MD RAD MRI Differential (08/01/2017 6:10 PM CDT) athologist Signature Absolute 4.1 1.8 - 8.0 PN SOFT Neutrophils k/cmm Absolute 1.3 1.1 - 4.0 PN SOFT Lymphocytes k/cmm Absolute 0.7 0.2 - 0.8 PN SOFT Monocytes k/cmm Absolute 0.0 0.0 - 0.5 PN SOFT Eosinophils k/cmm Absolute 0.0 0.0 - 0.2 PN SOFT Basophils k/cmm Immature 0.5 0.0 - 0.5 PN SOFT Granulocytes % Specimen Anatomical Collection Method Collection Time Receive d Time (Source) Location / / Volume Laterality 08/01/2017 6:10 PM 7 6:19 CDT PM CDT Narrative PN SOFT - 08/01/2017 6:23 PM [place] [address] CLIA number [id number] Trista Ritchie MD LAB_1 Performing Organization Address [facility] Phon e Number PN SOFT [address] [place] [address] CBC w/Diff (08/01/2017 6:10 PM CDT) athologist Signature White Blood Cell 6.2 3.8 - 11.0 PN SOFT Count k/cmm Red Blood Cell 4.63 3.70 - PN SOFT Count 5.20 m/cmm Hemoglobin 13.5 11.8 - PN SOFT 15.5 g/dL Hematocrit 41.3 35.0 - PN SOFT 46.0 % Mean Corpuscular 89.2 80.0 - PN SOFT Volume 100.0 fL RDW 13.2 11.0 - PN SOFT 15.0 % Platelet Count 179 140 - 450 PN SOFT k/cmm Specimen Anatomical Collection Method Collection Time Receive d Time (Source) Location / / Volume Laterality 08/01/2017 6:10 PM 7 6:19 CDT PM CDT Narrative PN SOFT - 08/01/2017 6:23 PM CDT Performed at [address] [address] CLIA number [id number] Trista Ritchie MD LAB_1 Performing Organization Address [facility]/State/ZIP Code Phon e Number PN SOFT [address] [place] [address] Anion Gap (08/01/2017 6:09 PM CDT) athologist Signature ANION GAP 9 0 - 16 mEq/L PN SOFT Specimen Anatomical Collection Method Collection Time Receive d Time (Source) Location / / Volume Laterality 08/01/2017 6:09 PM 7 6:18 CDT PM CDT Narrative PN SOFT - 08/01/2017 6:38 PM CDT Performed at [address] [address] CLIA number [id number] Trista Ritchie MD LAB_1 Performing Organization Address City/[facility] Phon e Number PN SOFT [address] [place] [address] CPK (08/01/2017 6:09 PM CDT) athologist Signature Creatine Kinase 66 29 - 168 PN SOFT U/L Specimen Anatomical Collection Method Collection Time Receive d Time (Source) Location / / Volume Laterality 08/01/2017 6:09 PM 7 6:18 CDT PM CDT Narrative PN SOFT - 08/01/2017 6:38 PM CDT Performed at [address] [address] CLIA number [id number] Trista Ritchie MD LAB_1 Performing Organization Address City/[facility] Phon e Number PN SOFT [address] [place] [address] (ABNORMAL) Basic Metabolic Panel (08/01/2017 6:09 PM CDT) athologist Signature Creatinine 0.86 0.55 - PN SOFT Serum 1.02 mg/dL Lab Glucose 109 (H) 70 - 100 PN SOFT mg/dL Comment: The stated glucose range is for the fast ing state. Non-fasting glucose range is 70-180 mg/d L CO2 26 22 - 31 mmol/L PN SOFT Chloride 109 98 - 109 mmol/L PN SOFT Potassium 3.8 3.5 - 5.2 mmol/L PN SOFT Sodium 144 136 - 145 mmol/L PN SOFT Blood Urea Nitrogen 14 9 - 26 mg/dL PN SOFT Calcium 9.5 8.4 - 10.2 mg/dL PN SOFT Est [...] Time (Source) Location / / Volume Laterality 08/01/2017 6:09 PM 7 6:18 CDT PM CDT Narrative PN SOFT - 08/01/2017 6:38 PM CDT Performed at [address] [address] CLIA number [id number] Trista Ritchie MD LAB_1 Performing Organization Address City/[facility] Phon e Number PN SOFT [address] [place] [address] Emergency Center Draw And Hold (08/01/2017 6:09 PM CDT) athologist Signature Emergency Drawn PN SOFT Center Draw And Hold Extra Lavender Drawn PN SOFT Top Drawn Extra PST Top Drawn PN SOFT Drawn Extra SST Top Drawn PN SOFT Drawn Specimen Anatomical Collection Method Collection Time Receive d Time (Source) Location / / Volume Laterality 08/01/2017 6:09 PM 7 6:18 CDT PM CDT Narrative PN SOFT - 08/01/2017 9:36 PM CDT Performed at [facility], [facility] [place] [place] [address] CLIA number [id number] Trista Ritchie MD LAB_1 Performing Organization Address City/[facility] Phon e Number PN SOFT [address] [place] [address] Troponin I (08/01/2017 6:08 PM CDT) athologist Signature TROPONIN I <0.03 0.00 - 0.02 PN SOFT ng/mL Specimen Anatomical Collection Method Collection Time Receive d Time (Source) Location / / Volume Laterality 08/01/2017 6:08 PM 7 6:54 CDT PM CDT Narrative ALEC RAI - 08/01/2017 7:15 PM CDT Performed at [facility], [address] [place] [address] CLIA number [id number] Trista Ritchie MD LAB_1 Performing Organization Address City/State/ZIP Code Phon e Number PN SOFT [address] [place] [address] documented in this encounter Visit Diagnoses Diagnosis Essential hypertension (HRC) Unspecified essential hypertension Dizziness Dizziness and giddiness Triage Assessment Note - Veronica Almodovar RN - 08/01/2017 5:12 PM CDT Pt arrives from the clinic for evaluation of HTN. Pt has a hx of HTN. Pt wanted to see her PCP for c/o heaviness in her feet, was unable to see her PCP and saw one of their partners. The MD was concerned for changes seen in her EKG compared to the last EKG from 2007. Pt denies headache, CP, SOB or any other symptoms associated with HTN. Besides BP of 198/95 pt is VSS. documented in this encounter Administered Medications Inactive Administered Medications - up to 3 most recent administrations Medication Order MAR Action Action Date Dose Rate Site 0.9% sodium chloride bolus Given in Radiology 08/01/2017 7:30 PM CDT 100 mL 100 mL 100 mL, Intravenous, Administer over 1 Hours, ONCE, On Sun08/01/17 at 1930, For 1 dose, Radiology gadobutrol (GADAVIST) 1 MMOL/ML injection 10 Given 7 7:30 PM CDT 10 mL mL 10 mL, Intravenous, ONCE, On Sun08/01/17 at 1930, For 1 dose, Radiology documented in this encounter Active and Recently Administered Medications Times are shown in CDT. Scheduled Medication Order 07/30/2017 07/31/2017 08/01/2017 0.9% sodium chloride bolus 100 mL (COMPLETED) 1929 (Given in Radiology - Provider: Daniel Mclaughlin) 100 mL, Intravenous, Administer over 1 H ours, ONCE, Sun08/01/17 at 1930, For 1 dose, Radiology gadobutrol (GADAVIST) 1 MMOL/ML injection 10 mL (COMPLETED) 1929 (Given - Provider: Daniel Mclaughlin) 10 mL, Intravenous, ONCE, Sun08/01/17 at 1930, For 1 dose, Radio logy documented in this encounter Care Teams Personal Financial Advisor Relationship Specialty Start Date End Date Veronica Heredia DO PCP - General Family Practice 03/22/17 [address] [facility] [place] [address] documented as of this encounter
--- OUTSIDE RECORDS SUMMARY | 2022-08-15 14:55 | XMS_ITS | Encounter Summary ---
:1940 Author Organization [facility] Address [address] [place] [address] Care Team Providers Name Role Phone FabionilsonVeronica DO Primary Care Provider Reason for Referral Procedure/Equipment (Routine) - Incomplete Specialty Diagnoses / Procedures Referred By Contact Refer red To Contact Diagnoses Essential hypertension (HRC) Wallace Johansen MD Procedures VL US Abd Arterial Renal Artery Complete [address] [place] [place] [address] Referral ID Status Reason Start Date Expiration Date Visits V isits Requested Authorized [id number] Incomplete 08/03/2017 11/02/2018 1 1 Reason for Visit Procedure/Equipment (Routine) - Incomplete Specialty Diagnoses / Procedures Referred By Contact Refer red To Contact Diagnoses Essential hypertension (HRC) Wallace Johansen MD Procedures VL US Abd Arterial Renal Artery Complete [address] [place] [place] [address] Referral ID Status Reason Start Date Expiration Date Visits V isits Requested Authorized [id number] Incomplete 08/03/2017 11/02/2018 1 1 Encounter Details Date Type Department Care Team Description 08/08/2017 Hospital Encounter [facility] MD Marcos hypertension [address] [address] [facility] [place] [id number] [phone] Social History Tobacco Use Types Packs/Day Years [...] on file documented as of this encounter Medications at Time of Discharge [...] type (HRC) documented as of this encounter Plan of Treatment Not on filedocumented as of this encounter Procedures Procedure Name Priority Date/Time Associated Diagnosis Comme nts VL US ABD ARTERIAL Routine 08/08/2017 10:01 Essential Resul ts for this RENAL ARTERY AM CDT hypertension procedure are i n COMPLETE the results section. documented in this encounter Results VL US Abd Arterial Renal Artery Complete [...] flow. Wallace Johansen MD RAD VASCULAR US documented in this encounter Visit Diagnoses Diagnosis Essential hypertension (HRC) Unspecified essential hypertension documented in this encounter Care Teams Oil Refiner Relationship Specialty Start Date End Date Veronica Heredia DO PCP - General Family Practice 03/22/17 [address] [facility] [place] [address] documented as of this encounter
--- OUTSIDE RECORDS SUMMARY | 2022-08-15 14:55 | XMS_ITS | Encounter Summary ---
:1940 Author Organization [facility] Address [address], [place] [address] Care Team Providers Name Role Phone Veronica Heredia DO Primary Care Provider Reason for Visit Reason Onset Date Comments Refill 07/05/2017 Encounter Details Date Type Department Care Team Description 07/05/2017 Refill [facility] Veronica Heredia, DO Refill [address] [facility] [address] [address] [place] [address] [phone] (Wo rk) Social History Tobacco Use Types [...] documented as of this encounter Nursing Notes Janet Toscano, RN - 07/09/2017 10:06 AM CDT Renewed medication per medication refill protocol. Requested Prescriptions Signed Prescriptions Disp Refills ??? metoprolol succinate (TOPROL XL) 50 MG 24 hour release tablet 90 Tab 2 Sig: Take 1 Tab by mouth daily. (SEE COMMENTS) Authorizing Provider: VERONICA HEREDIA Ordering User: JANET TOSCANO Yani Leblanc - 07/05/2017 4:39 PM CDT MEDICATION CHANGE REQUEST: Pharmacy stating all strengths of Atenolol are currently on long-term backorder. Pharmacy is requesting another medication to replace Atenolol. New order pended for Metoprolol Succinate per standing order. Please advise and send new rx if appropriate, thank you. Requested Prescriptions Pending Prescriptions Disp Refills ??? metoprolol succinate (TOPROL XL) 50 MG 24 hour release tablet 90 Tab 3 Sig: Take 1 Tab by mouth daily. (SEE COMMENTS) documented in this encounter Plan of Treatment Not on filedocumented as of this encounter Visit Diagnoses Not on filedocumented in this encounter Care Teams Coining Press Operator Relationship Specialty Start Date End Date Veronica Heredia, DO PCP - General Family Practice 03/22/17 [address] [facility] [place] [address] documented as of this encounter
--- OUTSIDE RECORDS SUMMARY | 2022-08-15 14:55 | XMS_ITS | Encounter Summary ---
:1940 Author Organization [facility] Address [address] [place] [address] Care Team Providers Name Role Phone RobleskarinaVeronica DO Primary Care Provider Encounter Details Date Type Department Care Team Description 08/03/2017 Lab Visit [facility] Essential hypertension; [address] [facility] Per [employer] [place] [address] Social History Tobacco Use Types [...] Name Priority Date/Time Associated Diagnosis Comme nts URINALYSIS Routine 08/03/2017 12:04 Peripheral edema Results for this ROUTINE(MICRO IF POS) PM CDT proced ure are in the results section. METANEPHRINES PLASMA Routine 08/03/2017 11:51 Essential Res ults for this AM CDT hypertension procedure are i n the results section. CREATININE / GFR Routine 08/03/2017 11:51 Essential Results for this AM CDT hypertension procedure are i n the results section. COMPLETE BLOOD Routine 08/03/2017 11:51 Essential Results f or this COUNT-W/DIFF AM CDT hypertension procedure are i n the results section. BILIRUBIN, TOTAL & Routine 08/03/2017 11:51 Peripheral edema R esults for this DIRECT AM CDT procedure are i n the results section. DIFFERENTIAL Routine 08/03/2017 11:51 Results for this AM CDT procedure are i n the results section. ELECTROLYTE PANEL Routine 08/03/2017 11:51 Essential Result s for this AM CDT hypertension procedure are i n the results section. TSH, SENSITIVE (WITH Routine 08/03/2017 11:51 Essential Res ults for this REFLEX) AM CDT hypertension procedure are i n the results section. ALT (SGPT) Routine 08/03/2017 11:51 Peripheral edema Results for this AM CDT procedure are i n the results section. AST Routine 08/03/2017 11:51 Peripheral edema Results for this AM CDT procedure are i n the results section. PROTEIN, TOTAL (SERUM) Routine 08/03/2017 11:51 Peripheral lenny ma Results for this AM CDT procedure are i n the results section. CALCIUM Routine 08/03/2017 11:51 Essential Results for this AM CDT hypertension procedure are i n the results section. BUN Routine 08/03/2017 11:51 Essential Results for this AM CDT hypertension procedure are i n the results section. ALKALINE PHOSPHATASE, Routine 08/03/2017 11:51 Peripheral cris a Results for this TOTAL AM CDT procedure are i n the results section. ALBUMIN Routine 08/03/2017 11:51 Peripheral edema Results for this AM CDT procedure are i n the results section. documented in this encounter Results UA (Micro if Positive) (CLINIC) (08/03/2017 12:04 PM CDT) [facility] Method Time Signature Urine Type URINE:clean PN [...] U Specific 1.015 1.005 - PN SOFT [place] 1.030 Urobilinogen Negative Negative PN SOFT Urine Eu/dL Specimen Anatomical Collection Method Collection Time Receive d Time (Source) Location / / Volume Laterality Urine 08/03/2017 12:04 08/03/2017 PM CDT 12:04 PM CDT Narrative PN SOFT - 08/03/2017 12:04 PM CD[place] [address] ??CLIA number [id number] Wallace Johansen MD LAB_1 Performing Organization Address [facility] Phon e Number PN SOFT [address] [place] [address] Differential (08/03/2017 11:51 AM CDT) P athologist Signature Absolute 4.2 1.8 - 8.0 PN SOFT Neutrophils k/cmm Absolute 1.2 1.1 - 4.0 PN SOFT Lymphocytes k/cmm Absolute 0.6 0.2 - 0.8 PN SOFT Monocytes k/cmm [...] - 08/03/2017 11:54 AM CD[place] [address] ??CLIA number [id number] Wallace Johansen MD LAB_1 Performing Organization Address [facility] Phon e Number PN SOFT [address] [place] [address] Total Protein (08/03/2017 11:51 AM CDT) P athologist Signature Protein Total, 7.2 6.4 - 8.3 PN SOFT Serum g/dL Specimen Anatomical Collection Method Collection Time Receive d Time (Source) Location / / Volume Laterality 08/03/2017 11:51 08/03/2017 3:33 AM CDT PM CDT Narrative PN SOFT - 08/03/2017 4:15 PM CDT Performed at [facility], [address] [place] [address] CLIA number [id number] Wallace Johansen MD LAB_1 Performing Organization Address [facility] Code Phon e Number PN SOFT [address] [place] [address] Bilirubin Total & Direct (08/03/2017 11:51 AM CDT) P athologist Signature Bilirubin Total 0.6 0.2 - 1.2 PN SOFT mg/dL Bilirubin, 0.3 0.0 - 0.5 PN SOFT Direct mg/dL Specimen Anatomical Collection Method Collection Time Receive d Time (Source) Location / / Volume Laterality 08/03/2017 11:51 08/03/2017 3:33 AM CDT PM CDT Narrative PN SOFT - 08/03/2017 4:15 PM CDT Performed at [address] [address] CLIA number [id number] Wallace Johnasen MD LAB_1 Performing Organization Address [facility] Phon e Number PN SOFT [address] [place] [address] Aspartate Aminotransferase (AST) (08/03/2017 11:51 AM CDT) [facility] Method Time Signature Aspartate 19 10 - 40 PN SOFT Aminotransferase U/L Specimen Anatomical Collection Method Collection Time Receive d Time (Source) Location / / Volume Laterality 08/03/2017 11:51 08/03/2017 3:33 AM CDT PM CDT Narrative PN SOFT - 08/03/2017 4:15 PM CDT Performed at [address] [address] CLIA number [id number] Wallace Johansen MD LAB_1 Performing Organization Address [facility] Phon e Number PN SOFT [address] [place] [address] Alkaline Phosphatase Total (ALK) (08/03/2017 11:51 AM CDT) P athologist Signature Alk Phos 76 40 - 150 U/L PN SOFT Specimen Anatomical Collection Method Collection Time Receive d Time (Source) Location / / Volume Laterality 08/03/2017 11:51 08/03/2017 3:33 AM CDT PM CDT Narrative PN SOFT - 08/03/2017 4:15 PM CDT Performed at [address] [address] CLIA number [id number] Wallace Johansen MD LAB_1 Performing Organization Address City/[facility] Code Phon e Number PN SOFT [address] [place] [address] Albumin (Serum) (08/03/2017 11:51 AM CDT) P athologist Signature Albumin 4.1 3.4 - 5.0 PN SOFT g/dL Specimen Anatomical Collection Method Collection Time Receive d Time (Source) Location / / Volume Laterality 08/03/2017 11:51 08/03/2017 3:33 AM CDT PM CDT Narrative PN SOFT - 08/03/2017 4:15 PM CDT Performed at [address] [address] CLIA number [id number] Wallace Johansen MD LAB_1 Performing Organization Address [facility] Phon e Number PN SOFT [address] [place] [address] Alanine Aminotransferase - ALT (SGPT) (08/03/2017 11:51 AM CDT) [facility] Method Time Signature Alanine 15 9 - 55 PN SOFT Aminotransferase U/L Specimen Anatomical Collection Method Collection Time Receive d Time (Source) Location / / Volume Laterality 08/03/2017 11:51 08/03/2017 3:33 AM CDT PM CDT Narrative PN SOFT - 08/03/2017 4:15 PM CDT Performed at [address] [address] CLIA number [id number] Wallace Johansen MD LAB_1 Performing Organization Address [facility] Phon e Number PN SOFT [address] [place] [address] Metanephrines Plasma (08/03/2017 11:51 AM CDT) Patholo gist Method Time Signature Plasma 0.46 0.00 - [...] be consider ed. See Compliance Statement B: [employer]/ CS Performed by [employer], [address] [place] [address] www.[email or web address], Edgar Phelan MD - Lab . Director Specimen Anatomical Collection Method Collection Time Receive d Time (Source) Location / / Volume Laterality 08/03/2017 11:51 08/03/2017 3:26 AM CDT PM CDT Narrative PN SOFT - 08/06/2017 3:27 PM CDT Performed at [employer] [address] [place] [address] CLIA number [id number] Wallace Johansen MD LAB_1 Performing Organization Address City/State/ZIP Code Phon e Number PN SOFT [address] [place] [address] Complete Blood Count W/Diff (08/03/2017 11:51 AM CDT) P athologist Signature White Blood Cell 6.1 3.8 [...] - 08/03/2017 11:54 AM CDT Performed at [facility], [address] [place] [address] ??CLIA number [id number] Wallace Johansen MD LAB_1 Performing Organization Address [facility] Phon e Number PN SOFT [address] [place] [address] TSH with Free T4 (if TSH Abnormal) (08/03/2017 11:51 AM CDT) athologist Signature Thyroid 3.17 0.30 - PN SOFT Stimulating 4.50 Hormone uIU/mL Specimen Anatomical Collection Method Collection Time Receive d Time (Source) Location / / Volume Laterality 08/03/2017 11:51 08/03/2017 3:33 AM CDT PM CDT Narrative PN SOFT - 08/03/2017 4:44 PM CDT Performed at [facility], [address] [place] [address] CLIA number [id number] Wallace Johansen MD LAB_1 Performing Organization Address City/[facility] Phon e Number PN SOFT [address] [place] [address] Electrolyte Panel (08/03/2017 11:51 AM CDT) P athologist Signature Sodium 142 [...] - 08/03/2017 4:15 PM CDT Performed at [address] [address] CLIA number [id number] Wallace Johansen MD LAB_1 Performing Organization Address [facility] Phon e Number PN SOFT [address] [place] [address] Creatinine (08/03/2017 11:51 AM CDT) athologist Signature [...] - 08/03/2017 4:15 PM CDT Performed at [address] [address] CLIA number [id number] Wallace Johansen MD LAB_1 Performing Organization Address [facility] Phon e Number PN SOFT [address] [place] [address] Calcium (08/03/2017 11:51 AM CDT) athologist Signature Calcium 9.4 8.4 - 10.2 PN SOFT mg/dL Specimen Anatomical Collection Method Collection Time Receive d Time (Source) Location / / Volume Laterality 08/03/2017 11:51 08/03/2017 3:33 AM CDT PM CDT Narrative PN SOFT - 08/03/2017 4:15 PM CDT Performed at [address] [place] [address] CLIA number [id number] Wallace Johansen MD LAB_1 Performing Organization Address City/[facility]/ZIP [facility] Phon e Number PN SOFT [address] [place] [address] [phone] [phone] (08/03/2017 11:51 AM CDT) athologist Signature Blood Urea 13 9 - 26 PN SOFT Nitrogen mg/dL Specimen Anatomical Collection Method Collection Time Receive d Time (Source) Location / / Volume Laterality 08/03/2017 11:51 08/03/2017 3:33 AM CDT PM CDT Narrative PN SOFT - 08/03/2017 4:15 PM CDT Performed at [facility], [facility] [place] [address] CLIA number [id number] Wallace Johansen MD LAB_1 Performing Organization Address [facility] Phon e Number PN SOFT [address] [place] [address] [phone] documented in this encounter Visit Diagnoses Diagnosis Essential hypertension (HRC) Unspecified essential hypertension Peripheral edema Edema documented in this encounter Care Teams Warble Saw Operator Relationship Specialty Start Date End Date Veronica Heredia, PCP - General Family Practice 03/22/17 [address] [facility] [place] [address] documented as of this encounter
--- OUTSIDE RECORDS SUMMARY | 2022-08-15 14:55 | XMS_ITS | Encounter Summary ---
:1940 Author Organization [facility] Address [address] [place] [address] Care Team Providers Name Role Phone FaibonilsonVeronica DO Primary Care Provider Reason for Visit Procedure/Equipment (Routine) - Incomplete Specialty Diagnoses / Procedures Referred By Contact Refer red To Contact Diagnoses Essential hypertension (HRC) Wallace Johansen MD Procedures US Renal W Bladder [address] [facility] [place] [address] Referral ID Status Reason Start Date Expiration Date Visits V isits Requested Authorized [id number] Incomplete 08/03/2017 11/02/2018 1 1 Encounter Details Date Type Department Care Team Description 08/09/2017 Imaging Jacques Ultrasound Wallace Johansen MD Essential hypertension [address] [facility] [address] [facility] [place] [address] [place] [phone] (Wo rk) Social History Tobacco Use Types [...] Priority Date/Time Associated Diagnosis Comme nts US RENAL W BLADDER Routine 08/09/2017 9:10 AM Essential Res ults for this CDT hypertension procedure are i n the results section. documented in this encounter Results US Renal W Bladder [...] IMPRESSION: Normal renal ultrasound. Wallace Johansen MD [facility] US documented in this encounter Visit Diagnoses Diagnosis Essential hypertension (HRC) Unspecified essential hypertension documented in this encounter Care Teams Alligator Hunter Relationship Specialty Start Date End Date Veronica Heredia DO PCP - General Family Practice 03/22/17 [address] [facility] [place] [address] documented as of this encounter
--- OUTSIDE RECORDS SUMMARY | 2022-08-15 14:55 | XMS_ITS | Encounter Summary ---
:1940 Author Organization [facility] Address [address] [place] [address] Care Team Providers Name Role Phone Veronica Heredia DO Primary Care Provider Reason for Visit Reason Onset Date Comments RESULTS, TEST 04/19/2017 Encounter Details Date Type Department Care Team Description 04/19/2017 Telephone Jacques Family Medic ine Veronica Heredia, DO RESULTS, TEST [address] [place] [id number] [facility] [place] [address] [place] [address] [phone] (Wo rk) Social History Tobacco Use Types [...] encounter Nursing Notes Yamilka Jay LPN - 04/19/2017 3:23 PM CDT Informed patient of lab results, and plan for patient to come to the lab to complete A1c lab. Patient verbalized understanding Veronica Heredia DO - 04/19/2017 3:18 PM CDT Please call with abnormal lab values, mildly elevated triglycerides and glucose level fasting. I would like to obtain an A1c, this lab order has been placed. documented in this encounter Plan of Treatment Not on filedocumented as of this encounter Results Hemoglobin A1C Glycosylated (04/20/2017 8:25 AM CDT) P athologist Signature HGB A1C 5.5 4.0 - 5.6 % PN SOFT Specimen Anatomical Collection Method Collection Time Receive d Time (Source) Location / / Volume Laterality 04/20/2017 8:25 AM 7 CDT 12:38 PM CDT Narrative PN SOFT - 04/20/2017 2:49 PM CDT Performed at [facility], [address] [place] [address] CLIA number [id number] Veronica Heredia DO LAB_1 Performing Organization Address City/State/ZIP Code Phon e Number SOFT [address] [place] [address] documented in this encounter Visit Diagnoses Diagnosis IFG (impaired fasting glucose) - Primary Impaired fasting glucose IFG (impaired fasting glucose) Impaired fasting glucose documented in this encounter Care Teams Hand Inserter Operator Relationship Specialty Start Date End Date Veronica Heredia DO PCP - General Family Practice 03/22/17 [address] [facility] [place] [address] documented as of this encounter
--- OUTSIDE RECORDS SUMMARY | 2022-08-15 14:55 | XMS_ITS | Encounter Summary ---
:1940 Author Organization [facility] Address [address] [place] [address] Care Team Providers Name Role Phone Veronica Heredia DO Primary Care Provider Reason for Visit Reason Onset Date Comments RESULTS, TEST 04/20/2017 Encounter Details Date Type Department Care Team Description 04/20/2017 Telephone [facility] Family Medic ine Veronica Heredia, RESULTS, TEST [address] [place] [id number] [facility] [place] [address] [facility] [place] [phone] (Wo rk) Social History Tobacco Use Types [...] encounter Nursing Notes Yamilka Jay LPN - 04/23/2017 9:56 AM CDT Informed patient of normal a1c, patient verbalized understanding. Veronica Heredia DO - 04/20/2017 5:34 PM CDT Please call out her know that her hemoglobin A1c was normal, no diabetes. documented in this encounter Plan of Treatment Not on filedocumented as of this encounter Visit Diagnoses Not on filedocumented in this encounter Care Teams Classifier Operator Relationship Specialty Start Date End Date Veronica Heredia DO PCP - General Family Practice 03/22/17 [address] [facility] [place] [address] documented as of this encounter
--- OUTSIDE RECORDS SUMMARY | 2022-08-15 14:55 | XMS_ITS | Encounter Summary ---
:1940 Author Organization [facility] Address [address] [place] [address] Care Team Providers Name Role Phone Veronica Heredia DO Primary Care Provider Reason for Referral (Routine) - Closed Specialty Diagnoses / Procedures Referred By Contact Refer red To Contact Diagnoses Essential hypertension (HRC) Wallace Johansen MD Procedures Echocardiogram [address] [facility] [place] [address] Referral ID Status Reason Start Date Expiration Date Visits Requ ested Visits Authorized [id number] Closed 08/03/2017 11/02/2018 1 1 Reason for Visit (Routine) - Closed Specialty Diagnoses / Procedures Referred By Contact Refer red To Contact Diagnoses Essential hypertension (HRC) Wallace Johansen MD Procedures Echocardiogram [address] [facility] [place] [address] Referral ID Status Reason Start Date Expiration Date Visits Requ ested Visits Authorized [id number] Closed 08/03/2017 11/02/2018 1 1 Encounter Details Date Type Department Care Team Description 08/08/2017 Hospital Encounter Heart & Vascular Wallace Johansen shanna Rodríguez MD hypertension Echocardiogram [address] [place] [facility], [address] [place] [address] [phone] Social History Tobacco Use Types Packs/Day Years [...] Name Priority Date/Time Associated Diagnosis Comme nts ECHOCARDIOGRAM Routine 08/08/2017 11:07 AM Essential hypertens ion Results for this CDT procedure are i n the results section. documented in this encounter Results Echocardiogram (08/08/2017 11:07 AM CDT) Specimen (Source) [...] I ?Room Number ? OUTPT Patient Number ??[id number] ?Date of Study ? 08/08/2017 Accession ? [id number] ? Inte rpreting ?Alphonso Colmenares MD Number ?Physician Date of ?? 1940 ?Orderi ng Physician ??LORAINE Rodríguez Primary ? LORAINE SCHULTZ ??Sono grapher ? NR, RDCS Physician ? A ? Attending Physician LORAINE Rodríguez Procedure Note Alphonso Colmenares MD - 08/08/2017Format ting of this note [...] I Room Number OUT PT Patient Number [id number] Date of Study 1 Interpreting Alphonso Colmenares MD Number Physician Date of 1940 Ordering Physi consuelo Rodríguez Primary LORAINE SCHULTZ Sole Tier NR, RD CS Physician A Attending Physician LORAINE Rodríguez Wallace Johansen MD PN ECHO ORDERABLES Performing Organization Address City/State/ZIP Code Phon e Number PN ECHO documented in this encounter Visit Diagnoses Diagnosis Essential hypertension (HRC) Unspecified essential hypertension documented in this encounter Care Teams Call Box Wirer Relationship Specialty Start Date End Date Veronica Heredia, PCP - General Family Practice 03/22/17 [address] [facility] [place] [address] documented as of this encounter
--- OUTSIDE RECORDS SUMMARY | 2022-08-15 14:55 | XMS_ITS | Encounter Summary ---
:1940 Author Organization [facility] Address [address] [place] [address] Care Team Providers Name Role Phone Veronica Heredia DO Primary Care Provider Reason for Visit Reason Comments Follow-up Encounter Details Date Type Department Care Team Description 08/10/2017 Office Visit Sawyer Hernandez Veronica Heredia, Essential hypertension (Primary Dx); Medicine DO Epigastric pain; [address] Loose stools; [address] Need [place] [address] [place], [place] [phone] [address] Social History Tobacco Use Types Packs/Day Years [...] Sign Reading Time Taken Comments Blood Pressure 122/96 08/10/2017 7:59 AM CDT Pulse 72 08/10/2017 7:59 AM CDT Temperature - - Respiratory Rate - - Oxygen Saturation - - Inhaled Oxygen Concentration - - Weight 90.4 kg (199 lb 3.2 oz) 08/10/2017 7:59 AM CDT Height - - Body Mass Index 34.19 08/04/2017 8:39 PM CDT documented in this encounter Patient Instructions Patient InstructionsVeronica Heredia, - 08/10/2017 8:22 AM CDT Images from the original note were not included. Diarrhea: Care Instructions Your Care Instructions Diarrhea is loose, watery stools (bowel movements). The exact cause is often hard to find. Sometimesdiarrhea is your body's way of getting rid of what caused an upset stomach. Viruses, food poisoning,and many medicines can cause diarrhea. Some people get diarrhea in response to emotional stress, anxiety, or certain foods. Almost everyone has diarrhea now and then. It usually isn't serious, and your stools will return to normal soon. The important thing to do is replace the fluids you have lost, so you can prevent dehydration. The doctor has checked you carefully, but [...] you care for yourself at home? ?? Watch for signs of dehydration, which means your body has lost too much water. Dehydration is a serious condition and should be treated right away. Signs of dehydration are: ?? Increasing thirst and dry eyes and mouth. ?? Feeling faint or lightheaded. ?? Darker urine, and a smaller amount of urine than normal. ?? To prevent dehydration, drink plenty of fluids, enough so that your urine is light yellow or clear like water. Choose water and other caffeine-free clear liquids until you feel better. If you have kidney, heart, or liver disease and have to limit fluids, talk with your doctor before you increase the amount of fluids you drink. ?? Begin eating small amounts of mild foods the next day, if you feel like it. ?? Try yogurt that has live cultures of Lactobacillus. (Check the label.) ?? Avoid spicy foods, fruits, alcohol, and caffeine until 48 hours after all symptoms are gone. ?? Avoid chewing gum that contains sorbitol. ?? Avoid dairy products (except for yogurt with Lactobacillus) while you have diarrhea and for 3 days after symptoms are gone. ?? The doctor may recommend that you take ifoc-pkk-fjmeuuy medicine, such as loperamide (Imodium), if you still have diarrhea after 6 hours. Read and follow all instructions on the label. Do not use this medicine if you have bloody diarrhea, a high fever, or other signs of serious illness. Call your doctor if you think you are having a problem with your medicine. When should you call for help? Call 911 anytime you think you may need emergency care. For example, call if: ?? You passed out (lost consciousness). ?? Your stools are maroon or very bloody. Call your doctor now or seek immediate medical care if: ?? You are dizzy or lightheaded, or you feel like you may faint. ?? Your stools are black and look like tar, or they have streaks of blood. ?? You have new or worse belly pain. ?? You have symptoms of dehydration, such as: ?? Dry eyes and a dry mouth. ?? Passing only a little dark urine. ?? Feeling thirstier than usual. ?? You have a new or higher fever. Watch closely for changes in your health, and be sure to contact your doctor if: ?? Your diarrhea is getting worse. ?? You see pus in the diarrhea. ?? You are not getting better after 2 days (48 hours). Where can you learn more? 1. Go to [employer] or [employer]. 2. Enter W335 in the search box. Current as of: January 22, 2017 Content Version: 11.3 ?? [id number] Invaluable, [employer]. documented in this encounter Progress Notes Veronica Heredia DO - 08/10/2017 8:00 AM CDT CHIEF COMPLAINT: Chief Complaint Patient presents with ??? Follow-up SUBJECTIVE : This is a 76 y.o. female patient presents for emergency department and primary care follow-up. She was seen initially on August 01, 2017 primary care for weakness, dizziness, shakiness and significantly elevated blood pressure which was out of usual for her. She was sent to the emergency department during that visit for evaluation, an MRI/MRA was completed without acute findings or infarct noted, chronic changes were noted. She was then seen in follow-up with internal medicine on August 03, 2017, Cozaar was increased, evaluation for secondary causes of elevated blood pressure were ordered. She had an ultrasound of her kidneys and renal arteries which were all normal. She had an echocardiogram which showed mild concentric wall thickening (this test was ordered prior to her emergency department visit but completed after her emergency department visit on August 05, 2017). She was then seen in the emergency department 2 days after her primary care visit for epigastric discomfort and back pain. EKG completed-stable compared with prior EKG, troponins were negative, chest x-ray was obtained-no acute findings. Stress echocardiogram was ordered through emergency department however she completed the echocardiogram ordered to primary care and not yet the stress test. She was started on an antacid. Which makes sense to her, she has had a history of reflux and heartburn in [facility]. She been wondering why it was not bothering her recently. She notes after being seen in the emergency department that she developed loose stools, 1-3 a day, it has improved over the course of last 2 days. She no longer has any epigastric pain or back pain. Stools are improving. No blood in her stools. She feels as though she may have had an acute illness that caused all of these symptoms. She is feeling back to normal today. She has been monitoring her blood pressure it is been somewhat elevated but better than it had been last week. No chest pain or difficulty breathing currently. She plans to go back to [place], she spends half of the year they are usually, she is uncertain when delayed considering the recent events. ROS: Recent symptoms have all resolved with exception of looser stools, complete ROS was negative. PAST MEDICAL HISTORY : Patient Active Problem [...] daily (every 24 hours). 90tablet 3 ??? famotidine (PEPCID) 20 MG tablet Take 1 Tab by mouth two times a day for 15 days. 30 Tab 0 ??? hydroCHLOROthiazide 12.5 MG capsule Take 1 Cap by mouth daily. (Patient not taking: Reported on 08/10/2017) 90 Cap 3 ??? losartan (COZAAR) 50 MG tablet [...] HIVES OBJECTIVE : Vital Signs: BP (!) 122/96 Pulse 72 Wt 199 lb 3.2 oz (90.4 kg) BMI 34.19 kg/m2 Gen.: Alert, cooperative in no acute [...] abdomen was soft, nondistended and nontender, normal sounds present. No obvious masses or organomegaly. No CVA tenderness to palpation. Psych: No evidence of overt anxiety or depression. Extremities: No cyanosis, clubbing or edema. Musculoskeletal: Normal tone. Skin: No suspicious lesions or rash on exposed skin. No pallor. Neurologic: Alert, oriented, nonfocal. Cranial nerves grossly intact. Recent visit notes, ED notes, labs, imaging are reviewed with the patient. EKG 08/05/2017 Normal sinus rhythm Cannot rule out Anterior infarct (cited on or before) 01-AUG-2017) Abnormal ECG When compared with ECG of 01-AUG-2017 19:54, No significant change was found CXR 08/04/2017 FINDINGS: ??Two views were obtained. ??The lungs and costophrenic angles are clear. ??Heart size andpulmonary vascularity are within normal limits. ??There is no evidence of pneumothorax or pleural effusion. Deformity of the left second rib laterally that has the appearance suggestive of a chronic deformity. If there is acute pain, a limited CT of the upper chest could be obtained. ASSESSMENT/PLAN: ICD-10-CM 1. Essential hypertension (HRC) I10 Basic Metabolic Panel 2. Epigastric pain R10.13 3. Loose stools R19.5 4. Need for influenza vaccination Z23 Influenza (Fluzone Highdose, 65+ Yrs) 1. Add hydrochlorothiazide 12.5 mg daily, recheck BMP within 3-4 weeks, return for nurse blood pressure check next week, she also has a home monitor, if her blood pressure starts to fall below 100 systolically she should stop the hydrochlorothiazide- she understood. She has a stress echocardiogram ordered from the emergency department, she will schedule this. 2. Continue famotidine for 2 weeks and then try off. 3. BRAT diet as well as probiotics discussed. Possible viral gastroenteritis contributing to her combination of symptoms. If persistent or worsening plan to obtain stool studies. 4. RTC if not improving, ED if worsening. 5. Call 911 if significantly short of breath, CVA symptoms or chest pain occur. This was dictated using a voice recognition program, typographical and sound like errors may occur. documented in this encounter Plan of Treatment Not on filedocumented as of this encounter Visit Diagnoses Diagnosis Essential hypertension (HRC) - Primary Unspecified essential hypertension Epigastric pain Abdominal pain, epigastric Loose stools Abnormal feces Need for influenza vaccination Need for prophylactic vaccination and in oculation against influenza documented in this encounter Care Teams Leasing Assistant Relationship Specialty Start Date End Date Veronica Heredia DO PCP - General Family Practice 03/22/[address] [facility] [address] [place] [id number] documented as of this encounter
--- OUTSIDE RECORDS SUMMARY | 2022-08-15 14:56 | XMS_ITS | Encounter Summary ---
:1940 Author Organization [facility] Address [address] [facility] [place] [address] Care Team Providers Name Role Phone Dirk Ruiz MD Primary Care Provider Encounter Details Date Type Department Care Team Description 07/27/2014 Imaging [facility] [address] ammography Other screening mammogram [address] [place] [address] Social History Tobacco Use Types Packs/Day Years Used Date Smoking Tobacco: Never Assessed Sex Assigned at Date Recorded Not on file documented as of this encounter Plan of Treatment Not on filedocumented as of this encounter Procedures Procedure Name Priority Date/Time Associated Diagnosis Comme nts MM MAMMOGRAM Routine 07/27/2014 9:14 AM Other screening Result s for this SCREENING BILAT W CDT mammogram procedure are in CAD the results section. documented in this encounter Results MM Mammogram Screening Bilat W CAD (07/27/2014 9:14 AM CDT) Anatomical Region Laterality Modality Breast Bilateral Mammography Specimen (Source) Anatomical Location Collection Method / Collectio n Time Received Time / Laterality Volume Impressions 07/27/2014 10:21 AM CDT : BIRADS 1 Negative (overall) Follow Up Mammogram in 1 year - Bilorina lucy The results and recommendations of this examination will be communicated to the patient by the [facility] and we will attempt to schedule any recommended imaging follow up with the patient. BJ Narrative 07/27/2014 10:21 AM CDT Compared to: 07/25/2013 MM Mammogram Screening Bilateral W Cad, 07/24/2012 MM MAMMOGRAM DIAG DIGITAL UNILAT(XVWS), 07/22/2012 MM MAMMOGRAM DIGITAL SCRN W CAD, 05/04/2006 MM MAMMOGRAM SCRE ENING W CAD Bilateral Breast Findings: There are scattered fibroglandular densi ties (25-50%) in the breasts. No significant mass, calcifications or o ther abnormalities are seen in either breast. Procedure Note Herb Chance MD - 06/29/2016Form atting of this note might be different from the original. Compared to: 07/25/2013 MM Mammogram Scr eening Bilateral W Cad, 07/24/2012 MM MAMMOGRAM DIAG DIGITAL UNILAT(XVWS), 07/22/2012 MM MAMMOGRAM DIGITAL SCRN W CAD, 05/04/2006 MM MAMMOGRAM SCRE ENING W CAD Bilateral Breast Findings: There are scattered fibroglandular densi ties (25-50%) in the breasts. No significant mass, calcifications or o ther abnormalities are seen in either breast. IMPRESSION : BIRADS 1 Negative (overall) Follow Up Mammogram in 1 year - Kemi ayala The results and recommendations of this examination will be communicated to the patient by the [facility] and we will attempt to schedule any recommended imaging follow up with the patient. BJ Alexander Joel MD RAD KERMIT documented in this encounter Visit Diagnoses Diagnosis Other screening mammogram documented in this encounter Care Teams Equine Intern Relationship Specialty Start Date End Date Dirk Ruiz MD PCP - General 02/05/11 04/15/15 [address] [place] [address] documented as of this encounter
--- OUTSIDE RECORDS SUMMARY | 2022-08-15 14:56 | XMS_ITS | Encounter Summary ---
:1940 [address] [facility] Address [address] [place] [address] Care Team Providers Name Role Phone Marcelino Sawant MD Primary Care Provider Reason for Visit Reason Comments Refill losartan (COZAAR) 50 MG tabl et [Pharmacy Med Name: LOSARTAN POTASSIUM 50 MG TAB]; ATENolol (TENORMIN) 50 MG tablet [Pharmacy Med Name: ATENOLOL 50 MG TABLET] Encounter Details Date Type Department Care Team Description 07/06/2016 Refill [facility] Marcelino Sawant, Refill (losartan (COZAAR) [address] [facility] 50 MG tablet [Pharmacy Drive [address] [place] Med [place]: [place] [address] 100 POTASSIUM 50 MG TAB]; [phone] [place], [place] ATENolol (TEN ORMIN) 50 MG [address]123 tablet [Pharmacy Med [phone] Name: ATENOLOL 50 MG (Work) TABLET]) Social History Tobacco Use Types Packs/Day Years [...] documented as of this encounter Nursing Notes Mery Mcgrath RN - 07/06/2016 1:34 PM CDT Renewed medication per medication refill protocol. Requested Prescriptions Signed Prescriptions Disp Refills ??? losartan (COZAAR) 50 MG tablet 90 Tab 3 Sig: Take 1 Tab by mouth daily. Authorizing Provider: MARCELINO SAWANT Ordering User: MERY MCGRATH ??? ATENolol (TENORMIN) 50 MG tablet 90 Tab 3 Sig: Take 1 Tab by mouth daily. Authorizing Provider: MARCELINO SAWANT Ordering User: MERY MCGRATH Emily Tucker - 07/06/2016 11:11 AM CDT [facility]. Please resend Rx if appropriate, thank you. Interface, Out Surescripts Prov Query - 07/06/2016 9:55 AM CDT 1) ATENolol (TENORMIN) 50 MG tablet [Pharmacy Med Name: ATENOLOL 50 MG TABLET] - MEDICATION STARTED: 07/14/2010 - LAST REFILLED ON: 04/18/2016, QTY: 90, Refills: 3, Sig: take 1 tablet by mouth daily (every 24 hours). (changed but equivalent) - WARNING: The patient should have outstanding refills for this medication until 01/13/2017. - REFILL: 12 months (if warnings resolved) - RATIONALE: This refill should last until the patient is due for an office visit. - LAST QUALIFYING VISIT WITH MARCELINO SAWANT: 04/18/2016 - NEXT SCHEDULED VISIT: None - SBP: 136mm Hg on 04/18/2016 - DBP: 84mm Hg on 04/18/2016 Powered by [employer], Reference: [id number], 07/06/2016 9:55:33 AM Ezequiel URBAN: YURY FP REFILL ([id number]) 2) losartan (COZAAR) 50 MG tablet [Pharmacy Med Name: LOSARTAN POTASSIUM 50 MG TAB] - MEDICATION STARTED: 07/19/2012 - LAST REFILLED ON: 04/18/2016, QTY: 90, Refills: 3, Sig: take 1 tablet by mouth daily (every 24 hours). (changed but equivalent) - WARNING: The patient should have outstanding refills for this medication until 01/13/2017. - REFILL: 12 months (if warnings resolved) - RATIONALE: This refill should last until the patient is due for an office visit check, Cr check and K check. - LAST QUALIFYING VISIT WITH MARCELINO SAWANT: 04/18/2016 - NEXT SCHEDULED VISIT: None - SBP: 136mm Hg on 04/18/2016 - DBP: 84mm Hg on 04/18/2016 - Cr: 0.78mg/dL on 04/18/2016 - K: 4.2mEq/L on 04/18/2016 Powered by [employer], Reference: [id number], 07/06/2016 9:55:33 AM Ezequiel URBAN: YURY FP REFILL ([id number]) documented in this encounter Plan of Treatment Not on filedocumented as of this encounter Visit Diagnoses Not on filedocumented in this encounter Care Teams Manager Drug Safety Relationship Specialty Start Date End Date Marcelino Sawant MD PCP - General 04/18/16 03/21/17 [address] [facility] [address] [place] [address] documented as of this encounter
--- OUTSIDE RECORDS SUMMARY | 2022-08-15 14:56 | XMS_ITS | Encounter Summary ---
:1940 [facility] Address [address] [place] [address] Care Team Providers Name Role Phone Dirk Ruiz MD Primary Care Provider Encounter Details Date Type Department Care Team Description 07/17/2011 Imaging [facility] [address] [place] [address] Social History Tobacco Use Types Packs/Day Years Used Date Smoking Tobacco: Never Assessed Sex Assigned at Date Recorded Not on file documented as of this encounter Plan of Treatment Not on filedocumented as of this encounter Visit Diagnoses Not on filedocumented in this encounter Care Teams Dowel Setting Machine Operator Relationship Specialty Start Date End Date Dirk Ruiz MD PCP - General 02/05/11 04/15/15 [address] [place], [place] [id number] documented as of this encounter
--- OUTSIDE RECORDS SUMMARY | 2022-08-15 14:56 | XMS_ITS | Encounter Summary ---
:1940 Author Organization [facility] Address [address] [place] [address] Care Team Providers Name Role Phone Dirk Ruiz MD Primary Care Provider Reason for Visit Reason Comments Annual Exam Encounter Details Date Type Department Care Team Description 07/21/2013 Office Visit Sawyer Hernandez Joseph, Anthony gener al medical examination at a health care facility (Primary Dx); Medicine MD Dirk Unspecified essential hypertension; [address] [place] and unspecified hyperlipidemia; [address] Need [place] [address] [place], [place] [phone] [address] Social History Tobacco Use Types Packs/Day Years Used Date Smoking Tobacco: Never Assessed Sex Assigned at Date Recorded Not on file documented as of this encounter Last Filed Vital Signs Vital Sign Reading Time Taken Comments Blood Pressure 130/84 07/21/2013 7:28 AM CDT Pulse 74 07/21/2013 7:28 AM CDT Temperature - - Respiratory Rate - - Oxygen Saturation - - Inhaled Oxygen Concentration - - Weight 93.6 kg (206 lb 6.4 oz) 07/21/2013 7:28 AM CDT Height 162.6 cm (5' 4) 07/21/2013 7:28 AM CDT Body Mass Index 35.43 07/21/2013 7:28 AM CDT documented in this encounter Patient Instructions Patient InstructionsMaranda Jacques RN - 07/21/2013 7:32 AM CDT Patient Followup Plan: Provided patient with [employer] brochure. Thank you for enrolling in [employer]. Please follow the instructions below to securely access your online medical record. [employer] allows you to send messages to your doctor, view your test results, renewyour prescriptions, schedule appointments, and more. How Do I Sign Up? 1. In your Internet browser, go to: [email or web address] 2. Click on the Enter Activation Code link under the New User? section. You will see the New Member Sign Up page. 3. Enter your [employer] Activation Code exactly as it appears below. You will not need to use this code after you???ve completed the sign-up process. If you do not sign up before the expiration date, youmust request a new code. [employer] Activation Code: [email or web address] Expires: 08/20/2013 7:32 AM 4. Enter the last four digits of your Social Security Number ([id number]) and Date of (mm/dd/yyyy) as indicated and click Next. You will be taken to the next sign-up page. 5. Create a [employer] ID. This will be your [employer] login ID and cannot be changed, so think of one that is secure and easy to remember. 6. Create a [employer] password. You can change your password at any time. 7. Enter your Security Question and Answer. This can be used at a later time if you forget your password. Click Next. 8. Enter your e-mail address. You will receive e-mail notification when new information is availablein [employer]. 9. Click Sign In. You can now view your medical record. Additional Information If you have questions, you can call [phone] to talk to our [employer] staff. Remember, [employer] is NOT to be used for urgent needs. For medical emergencies, dial 911. documented in this encounter Progress Notes Dirk Ruiz MD - 07/21/2013 11:52 AM CDT Progress Notes signed by Dirk Ruiz MD at 07/21/13 1601 Author: Dirk Ruiz MD Service: (none) Author Type: Physician Filed: 07/21/13 1601 Note Time: 07/21/13 142 Status: Signed Treating Plant Operator: Dirk Ruiz MD (Physician) NAME: MICHELE PIZARRO I MR#: [id number] CSN: [id number] AUTHENTICATING CLINICIAN: Dirk Ruiz MD CONFIRM #: [id number] LOC: 602 CLINIC PROGRESS NOTE DATE OF VISIT: 07/21/2013 : 1940 Michele is in for a complete physical. She spends love in [place]. She did develop shingles recently. Was seen in urgent care. She is here for followup on that. That has been improving nicely. She had a very light rash, but did have symptoms. She was given a shingles vaccine, and she thinks that helped. Her mom of liver cancer at 73. Dad had polycystic kidney disorder, and the patient has been evaluated for that with negative work up. She is a nondrinker, nonsmoker. ALLERGIES: Penicillin and sulfa. Shots are up to date. She will get a flu shot today. Blood pressure is averaging about 130/80 or less. Today she was 130/84. Other vitals normal. BMI 35.We discussed weight loss in the past and again today. Mammogram this week. She had a colonoscopy 03/2008 that was normal. Her last Pap was 04/2006. She had a DEXA 07/2011 that was normal. She declines a pelvic. She feels well. No bleeding no GI, symptoms or respiratory issues. COMPLETE REVIEW OF SYSTEMS: Negative. I refilled Zocor, Cozaar, Prinivil, Tenormin. Blood pressure 130/84. Other vitals normal. BMI 35. HEENT: Negative. NECK: Supple. Thyroid normal. No bruits. LUNGS: Clear. HEART: Regular without murmur. BREASTS: Without masses. No axillary or cervical adenopathy. ABDOMEN: Benign. No edema. Pulses full. A few moles of the trunk appear benign. ASSESSMENT: Physical, age 72. Labs pending. I will contact patient with results. Follow up shingles, resolving. Vaccine has been taken. Does not appear to have developed any postherpetic neuralgia. CC:MEDQ C: CONFIRM #: [id number] documented in this encounter Plan of Treatment Not on filedocumented as of this encounter Visit Diagnoses Diagnosis Routine general medical examination at a health care facility - Primary Unspecified essential hypertension (HRC) Unspecified essential hypertension Other and unspecified hyperlipidemia (HR C) Other and unspecified hyperlipidemia Need for influenza vaccination Need for prophylactic vaccination and in oculation against influenza documented in this encounter Care Teams Infant Childcare Provider Relationship Specialty Start Date End Date Dirk Ruiz MD PCP - General 02/05/11 04/15/15 [address] [place] [address] documented as of this encounter
--- OUTSIDE RECORDS SUMMARY | 2022-08-15 14:56 | XMS_ITS | Encounter Summary ---
:1940 Author Organization [facility] Address [address] [place] [address] Care Team Providers Name Role Phone Annette Chavira MD Primary Care Provider Reason for Visit Reason Comments Annual Exam Encounter Details Date Type Department Care Team Description 04/18/2016 Office Visit Sawyer Chavira, Routine physi brian examination (Primary Dx); Medicine MD Annette Essential hypertension; [address] [facility] [address] [place] Hyperli pidemia, unspecified hyperlipidemia type; [address] Vitamin D deficiency; [place] [address] [place], [place] Skin cancer screening [phone] Social History Tobacco Use Types Packs/Day Years Used Date Smoking Tobacco: Never Assessed Sex Assigned at Date Recorded Not on file documented as of this encounter Last Filed Vital Signs Vital Sign Reading Time Taken Comments Blood Pressure 136/84 04/18/2016 7:30 AM CDT Pulse 60 04/18/2016 7:30 AM CDT Temperature - - Respiratory Rate - - Oxygen Saturation - - Inhaled Oxygen Concentration - - Weight 97.1 kg (214 lb) 04/18/2016 7:30 AM CDT Height 161.3 cm (5' 3.5) 04/18/2016 7:30 AM CDT Body Mass Index 37.31 04/18/2016 7:30 AM CDT documented in this encounter Patient Instructions Patient InstructionsAnnette Chavira - 04/18/2016 7:20 AM CDT This information is intended to inform and educate and is to be used in addition to the medical advice received from your healthcare professional. Get regular checkups Eye exams annually after age 40 HIV screening annually even if you are not at increased risk Vitamin D 800 ui once daily especially during the winter season Sun protection with sun block creams SPF 30 and sunglasses use. Regular sleep is very important. Most people need six to eight hours of sleep each night. If you smoke: It is never too late to quit smoking. Healthful eating: The Mediterranean diet features foods eaten in [place], [place], southern [place] and [place], and other countries that border the [place] Sea. It emphasizes eating a diet rich in fruits, vegetables, nuts, and high-fiber grains, and limits meat, cheese, and sweets. The Mediterranean diet may: Prevent heart disease and lower the risk of a heart attack or stroke. Prevent type 2 diabetes. Prevent Alzheimer's disease and other dementia. Prevent depression. Prevent Parkinson's disease. This diet contains more fat than other heart-healthy diets. But the fats are mainly from nuts, unsaturated oils, such as fish oils, olive oil, and certain nut or seed oils (such as canola, soybean, or flaxseed oil). These types of oils may help protect the heart and blood vessels. What to eat Eat a variety of fruits and vegetables each day, such as grapes, blueberries, tomatoes, broccoli, peppers, figs, olives, spinach, eggplant, beans, lentils, and chickpeas. Eat a variety of whole-grain foods each day, such as oats, brown rice, and whole wheat bread, pasta,and couscous. Eat fish at least 2 times a week. Try tuna, salmon, mackerel, escobar trout, calvo, or sardines. Eat moderate amounts of low-fat dairy products each day or weekly, such as milk, cheese, or yogurt. Eat moderate amounts of poultry and eggs every 2 days or weekly. Choose healthy (unsaturated) fats, such as nuts, olive oil and certain nut or seed oils like canola,soybean, and flaxseed. Limit unhealthy (saturated) fats, such as butter, palm oil, and coconut oil. And limit fats found inanimal products, such as meat and dairy products made with whole milk. Try to eat red meat only a few times a month in very small amounts. Limit sweets and desserts to only a few times a week. This includes sugar- sweetened drinks like soda. The Mediterranean diet may also include red wine with your meal--1 glass each day for women and up to 2 glasses a day for men. Tips for changing your diet Dip bread in a mix of olive oil and fresh herbs instead of using butter. Add avocado slices to your sandwich instead of garza. Have fish for lunch or dinner instead of red meat. [place] the fish with olive oil, and broil or grillit. Sprinkle your salad with seeds or nuts instead of cheese. Cook with olive or canola oil instead of butter or oils that are high in saturated fat. Switch from 2% milk or whole milk to 1% or fat-free milk. Dip raw vegetables in a vinaigrette dressing or hummus instead of dips made from mayonnaise or sour cream. Have a piece of fruit for dessert instead of a piece of cake. Try baked apples, or have some dried fruit. Part of the Mediterranean diet is being active. Get at least 30-60 minutes of exercise on most days of the week. Walking is a good choice. You also may want to do other activities, such as running, swimming, cycling, or playing tennis or team sports. Start breast cancer screening annually after age 40 years and contact your clinician if Development of a lump or swelling Skin irritation or dimpling Nipple pain or retraction (nipple turning inward) Redness or scaly rash on the nipple or breast skin Discharge (other than breast milk in nursing mothers). What is a skin exam? Every month or two, it is a good idea to check your skin. Everyone is at risk for skin cancer from current or past exposure to sunlight. By checking your skin regularly, you will learn how your moles look. Watch for any changes, particularly a new black mole or a change in outline, shape, size, color, or feel of an existing mole Think of the letters, A, B, C, D and E to remember the guidelines to find moles that may be harmful and should be checked by your health care provider: Asymmetry: The shape of one half of the mole does not match the other. Border: The edges are often ragged, notched, blurred, or irregular. The pigment may spread into the surrounding skin. Color: The color is uneven. Shades of black, brown, and schofield may be present. Even white, irizarry, red, pink, or blue may be seen. Diameter: Melanomas are usually bigger than the eraser of a pencil (1/4 inch or 5 millimeters). Evolving :There is a change in size. If you have a mole that has any of these ABCDE signs, see your health care provider. Thank you documented in this encounter Progress Notes Annette Chavira - 04/18/2016 8:58 AM CDT Chief complain: Chief Complaint Patient presents with ??? Annual Exam fasting Depression Screen: Depressed? Over the past two weeks has the patient felt down, depressed, or hopeless? Not at all = 0 Interest? Over the past two weeks has the patient felt little interest or pleasure in doing things Interest? Not at all = 0 Functional Ability/ Safety Screen: Does the patient need help with the phone, transportation, shopping, preparing meals, housework, laundry, medications, or managing money? no Does the patient's home have rugs in the hallway or have poor lighting? no Does the patient's home lack grab bars in the bathroom or hand rails on the stairs? no Audio Screen: Is the patient having any problems with hearing? no Audio Screen ordered?: no Up and Go Test: Patient was unsteady or time test was longer than 30 seconds? no Detection of Cognitive Impairment: Detect cognitive impairment based on direct observation, discussion with patient or family, or review of medical records? no Counseling and Referral of Preventative Services: yes History of present illness Michele Angulo 75 y.o. female present for - Periodic health maintenance visit Patient concerns none all medical problems are stable spends 6 months ain [place] and 6 months here, has a doctor in [place] as well had an episode of gastroenteritis in [place] in October , buts CT scan showed she had a kidneystone right kidney, asymptomatic has two sisters one still works and has a grand kid ROS: Feeling well. No dyspnea or chest pain on exertion. No depression or anxiety . No abdominal pain, change in bowel habits, black or bloody stools. No urinary tract symptoms . 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 Patient Active Problem List Diagnosis Date Noted ??? Calculus of kidney right side diagnosed CT scan in [place] asymptomatic 04/18/2016 ??? Postmenopausal 04/16/2015 ??? Aspirin long-term use 04/16/2015 Overview Note: ASA therapy 75-162 mg/day is recommended for primary CVD prevention because patient -Is female 57 years who have at least one additional major risk factor such as: -HTN -Dyslipdemia ??? H/O colonoscopy 200704/16/2015 ??? Vitamin D deficiency (HRC) 04/16/2015 ??? BMI 35.0-35.9,adult 04/16/2015 ??? Gastroesophageal Reflux Disease 04/30/2006 Overview Note: infreqvent symptoms uses OTC medication ??? Hyperlipidemia 07/12/2005 Overview Note: takes zocor ??? Hypertension 04/11/2003 Overview Note: takes atenolol cozaar Past Medical History Diagnosis Date ??? Hypertension 04/11/2003 takes atenolol cozaar ??? Hyperlipidemia 07/12/2005 takes zocor ??? Postmenopausal 04/16/2015 resolved ??? Aspirin long-term use 04/16/2015 ASA therapy 75-162 mg/day is recommended for primary CVD prevention because patient -Is female 57 years who have at least one additional major risk factor such as: -HTN -Dyslipdemia ??? H/O colonoscopy 200704/16/2015 ??? Obesity (HRC) 04/30/2006 LW Onset: 37Pan56 ??? Calculus of kidney right side diagnosed CT scan in [place] asymptomatic 04/18/2016 ??? Zoster Past Surgical History Procedure Laterality Date ??? Bunionectomy Outpatient Prescriptions Prior to Visit Medication Sig Dispense Refill ??? aspirin EC 81 mg EC tablet Take 1 tablet by mouth daily (every 24 hours). 13 ??? atenolol (TENORMIN) 50 mg tablet Take 1 tablet by mouth daily (every 24 hours). 90 tablet 4 ??? cholecalciferol (VITAMIN D3) 1,000 unit tablet Take 1 tablet by mouth daily (every 24 hours). 100 tablet PRN ??? losartan (COZAAR) 50 mg tablet Take 1 tablet by mouth daily (every 24 hours). 90 tablet 4 ??? simvastatin (ZOCOR) 10 mg tablet TAKE ONE TABLET BY MOUTH ONE TIME DAILY IN THE P.M. 90 tablet 4 No facility-administered medications prior to visit. Allergies: Other; Penicillins; Review food intolerance; and Sulfa (sulfonamide antibiotics) History Substance Use Topics ??? Smoking status: Never Smoker ??? Smokeless tobacco: Not on file ??? Alcohol Use: Yes Comment: Alcoholic Drinks/day: 1-2 x per year Family History Problem Relation Age of Onset ??? Arthritis Mother ??? Cancer Mother 73 liver ??? Arthritis Father ??? Kidney Disease Father ??? Arthritis Sister ??? Depression Sister ??? High Blood Pressure Sister ??? Anxiety Disorder Sister ??? Cancer, Breast Neg Hx ??? Cancer, Ovarian Neg Hx ??? Cancer, Endometrial Neg Hx ??? Heart Failure Paternal Grandfather ??? Heart Failure Maternal Grandfather Immunization History Administered Date(s) Administered ??? FLUARIX INFLUENZA QIV (36+ MOS) 07/21/2013 ??? Influenza High-dose (65+ Years) 07/19/2015 ??? Influenza TIV (36+ mos) 07/17/2011 ??? Influenza TIV 0.5ml (36+ mos) 07/13/2009, 07/14/2010, 07/19/2012 ??? PCV13 04/16/2015 ??? Pneumococcal vaccine (pneumovax) 07/14/2010 ? ? Td Adult (>7 years) 07/20/1999, 07/13/2009 ??? Zoster 07/19/2012 Physical examination BP 136/84 mmHg Pulse 60 Ht 5' 3.5 (1.613 m) Wt 214 lb (97.07 kg) BMI 37.31 kg/m2 No LMP recorded. Patient is postmenopausal. Patient is alert, awake interactive and seems to be in no acute distress Skin: The skin is warm and dry: color is normal. There is no icterus, purpura, rash, or unusual pigmentation noted. Hair is normal in appearance, distribution, and texture. some seborrheic keratosis spots Lymph nodes : there is no cervical, supraclavicular, axillary, epitrochlear, or inguinal adenopathy. Eyes: conjunctiva is clear, sclera is white, and cornea is without lesions. Pupils are equal round and reactive to light. Extra ocular movements are intact. Ears; normal in appearance, auditory canal normal without lesions; TM intact without hyperemia, and with good light reflex. Nose: nasal mucosa appears pink and without any abnormal discharge. Frontal and maxillary sinuses are not tender. Mouth and throat: lips are without cyanosis or pallor. Buccal mucosa is normal in appearance. Tongueshows no lesions or tremor. Pharyngeal mucosa is pink and does not reveal any lesions, exudates, erythema, or evidence of inflammation. Gag reflex is intact. Neck :neck is supple. FROM is present There is no jugular distention or lymphadenopathy. Thyroid gland is normal size without any masses or nodules. Neurologic : intact without focal or global neurological deficits, DRT normal , equal bilaterally Chest :full expansion is noted bilaterally. Breath sounds are normal. There are no rales or rhonchi or wheezing or crackles, moving the airways very well. Heart: Auscultation reveals S1, S2, of normal intensity there are no S3, S4 rubs clicks or murmurs and no carotid bruits. Rhythm is regular. Abdomen obese ;Auscultation reveals normal active bowel sounds and no abdominal bruits. Palpation reveals no abnormal tenderness, guarding or masses or guarding or rebound tenderness. The spleen is notpalpable and no organomegaly noted Breast: breasts are symmetric and have normal contour. Skin is normal color; there is no edema, ulceration, or erythema. Nipples are of normal size and shape; there is no nipple retraction, ulceration,or discharge. Palpation does not reveal any tenderness or masses Inguinal area: there is no lymphadenopathy noted. Femoral pulses are equal bilaterally. 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 Weight control- patient denies weight changes Skin cancer prevention- patient admits to that uses sun block (SPF>15) Depression/anxiety screening-negative Violence/abuse screening -negative LABS: see [facility] Assessment and plan Assessment and Plan reviewed with patient Patient's questions answered Periodic health maintenance examination Life style recomendations: Healthful eating: Mediterranean diet:discussed Exercise Staying physically FIT-importantance for health -Frequency- 5 x per week (30-60 minutes)Intensity- moderate exerciseTime- at least 1.5 h per week discussed Vitamin D 800 ui once daily discussed Sun protection with sun block creams SPF 15 or higher and sunglasses use. Regular sleep is very important. Most people need six to eight hours of sleep each night. Return for annual health maintenance visit next year and prn Patient voices understanding and agreement with the plan of care and follow up Advised to call any time if any concerns Medications prescribed: see [facility] documented in this encounter Plan of Treatment Not on filedocumented as of this encounter Visit Diagnoses Diagnosis Routine physical examination - Primary Routine general medical examination at a health care facility Essential hypertension (HRC) Unspecified essential hypertension Hyperlipidemia, unspecified hyperlipidem ia type (HRC) Vitamin D deficiency (HRC) Unspecified vitamin D deficiency Skin cancer screening Screening for malignant neoplasm of the skin documented in this encounter Care Teams Rehab Tech Relationship Specialty Start Date End Date Annette Chavira MD PCP - General 04/18/16 03/21/[address] [place] [address] documented as of this encounter
--- OUTSIDE RECORDS SUMMARY | 2022-08-15 14:56 | XMS_ITS | Encounter Summary ---
:1940 Author Organization [facility] Address [address] [place] [address] Care Team Providers Name Role Phone Dirk Ruiz MD Primary Care Provider Encounter Details Date Type Department Care Team Description 07/24/2012 Imaging [facility] [address] [place] [address] Social History Tobacco Use Types Packs/Day Years Used Date Smoking Tobacco: Never Assessed Sex Assigned at Date Recorded Not on file documented as of this encounter Plan of Treatment Not on filedocumented as of this encounter Visit Diagnoses Not on filedocumented in this encounter Care Teams Teradata Architect Relationship Specialty Start Date End Date Dirk Ruiz MD PCP - General 02/05/11 04/15/15 [address] [place], [place] [id number] documented as of this encounter
--- OUTSIDE RECORDS SUMMARY | 2022-08-15 14:56 | XMS_ITS | Encounter Summary ---
:1940 Author Organization [facility] Address [address] [place] [address] Care Team Providers Name Role Phone Dirk Ruiz MD Primary Care Provider Reason for Visit Reason Comments Refill Encounter Details Date Type Department Care Team Description 02/08/2012 Refill [facility] Dirk Ruiz MD Refill [address] [facility] [address] [place] [address] [place], [place] [id number] [phone] Social History Tobacco Use Types Packs/Day Years Used Date Smoking Tobacco: Never Assessed Sex Assigned at Date Recorded Not on file documented as of this encounter Nursing Notes Yuli Andres, RN - 02/09/2012 11:35 AM CDT Renewed medication per medication refill protocol. Prescription Refills Approved Prescriptions Disp Refills ??? simvastatin (ZOCOR) 10 mg tablet 90 tablet 1 Sig: Take 1 tablet by mouth every evening. Authorizing Provider: DIRK RUIZ Ordering User: YULI ANDRES documented in this encounter Plan of Treatment Not on filedocumented as of this encounter Visit Diagnoses Not on filedocumented in this encounter Care Teams Process Server Relationship Specialty Start Date End Date Dirk Ruiz MD PCP - General 02/05/11 04/15/15 [address] [place], [place] [id number] documented as of this encounter
--- OUTSIDE RECORDS SUMMARY | 2022-08-15 14:56 | XMS_ITS | Encounter Summary ---
:1940 Author Organization [facility] Address [address] [place] [address] Care Team Providers Name Role Phone Dirk Ruiz MD Primary Care Provider Reason for Visit Reason Comments Refill Encounter Details Date Type Department Care Team Description 04/25/2012 Refill [facility] Dirk Ruiz MD Refill [address] [facility] [address] [facility] [place] [address] [place] [address] [phone] Social History Tobacco Use Types Packs/Day Years Used Date Smoking Tobacco: Never Assessed Sex Assigned at Date Recorded Not on file documented as of this encounter Nursing Notes Roseline Rodriguez RN - 04/26/2012 9:00 AM CDT Prescription Refills Approved Prescriptions Disp Refills ??? atenolol (TENORMIN) 50 mg tablet 90 tablet 0 Sig: Take 1 tablet by mouth daily (every 24 hours). Authorizing Provider: DIRK RUIZ Ordering User: ROSELINE RODRIGUEZ Renewed medication per medication refill protocol. documented in this encounter Plan of Treatment Not on filedocumented as of this encounter Visit Diagnoses Not on filedocumented in this encounter Care Teams Master In Chancery Relationship Specialty Start Date End Date Dirk Ruiz MD PCP - General 02/05/11 04/15/15 [address] [address] documented as of this encounter
--- OUTSIDE RECORDS SUMMARY | 2022-08-15 14:56 | XMS_ITS | Encounter Summary ---
:1940 Author Organization [facility] Address [address] [place] [address] Care Team Providers Name Role Phone Unavailable Primary Care Provider Unavailable Encounter Details Date Type Department Care Team Description 07/28/2015 Imaging [facility] [address] Other screening mammogram [address] [place] [address] Social History Tobacco Use Types Packs/Day Years Used Date Smoking Tobacco: Never Assessed Sex Assigned at Date Recorded Not on file documented as of this encounter Plan of Treatment Not on filedocumented as of this encounter Procedures Procedure Name Priority Date/Time Associated Diagnosis Comme nts MM MAMMOGRAM Routine 07/28/2015 8:00 AM Other screening Result s for this SCREENING BILAT W CDT mammogram procedure are in 3D NACHO W CAD the results section. documented in this encounter Results MM Mammogram Screening Bilat W Nacho W CAD (07/28/2015 8:00 AM CDT) Anatomical Region Laterality Modality Breast Bilateral Mammography Specimen (Source) Anatomical Location Collection Method / Collectio n Time Received Time / Laterality Volume Impressions 07/28/2015 10:48 AM CDT : BI-RADS 1 Negative (overall) Follow Up Mammogram in 1 year - [place] The results and recommendations of this examination will be communicated to the patient by the [facility] and we will attempt to schedule any recommended imaging follow up with the patient. Narrative 07/28/2015 10:48 AM CDT Compared to: 07/27/2014 MM Mammogram Screening Bilateral W Cad, 07/25/2013 MM Mammogram Screening Bilateral W Cad, 07/22/2012 MM MAMMOGRAM DIGITAL SCRN W CAD Bilateral Breast Findings: Bilateral breast tomosynthesis was perfo rmed. There are scattered areas of fibroglandular density in the breasts. No significant mass, calcifications or o ther abnormalities are seen in either breast. This study was evaluated with the assistance of Computer-Aided Detection. Procedure Note Michelle Rider MD - 07/05/2016Formattin g of this note might be different from the original. Compared to: 07/27/2014 MM Mammogram Scr eening Bilateral W Cad, 07/25/2013 MM Mammogram Screening Bilateral W Cad, 07/22/2012 MM MAMMOGRAM DIGITAL SCRN W CAD Bilateral Breast Findings: Bilateral breast tomosynthesis was perfo rmed. There are scattered areas of fibroglandular density in the breasts. No significant mass, calcifications or o ther abnormalities are seen in either breast. This study was evaluated with the assistance of Computer-Aided Detection. IMPRESSION : BI-RADS 1 Negative (overall) Follow Up Mammogram in 1 year - Kemi ayala The results and recommendations of this examination will be communicated to the patient by the [facility] and we will attempt to schedule any recommended imaging follow up with the patient. Annette Chavira MD RAD KERMIT documented in this encounter Visit Diagnoses Diagnosis Other screening mammogram documented in this encounter
--- OUTSIDE RECORDS SUMMARY | 2022-08-15 14:56 | XMS_ITS | Encounter Summary ---
:1940 Author Organization [facility] Address [address] [place] [address] Care Team Providers Name Role Phone Dirk Ruiz MD Primary Care Provider Reason for Visit Reason Comments Refill Encounter Details Date Type Department Care Team Description 04/25/2012 Refill [facility] Dirk Ruiz MD Refill [address] [facility] [address] [place] [address] [place] [address] [phone] Social History Tobacco Use Types Packs/Day Years Used Date Smoking Tobacco: Never Assessed Sex Assigned at Date Recorded Not on file documented as of this encounter Nursing Notes Nelly Osman - 04/25/2012 1:09 PM CDT Renewed medication per medication refill protocol. documented in this encounter Plan of Treatment Not on filedocumented as of this encounter Visit Diagnoses Not on filedocumented in this encounter Care Teams Queen'S Counsel Relationship Specialty Start Date End Date Dirk Ruiz MD PCP - General 02/05/11 04/15/15 [address] [place] [address] documented as of this encounter
--- OUTSIDE RECORDS SUMMARY | 2022-08-15 14:56 | XMS_ITS | Encounter Summary ---
:1940 Author Organization [facility] Address [address] [facility] [place] [address] Care Team Providers Name Role Phone Annette Chavira MD Primary Care Provider Encounter Details Date Type Department Care Team Description 04/18/2016 Lab Visit [facility] Essential hypertension; [address] [facility] Hyp erlipidemia, unspecified hyperlipidemia type; [place] [address] Social History Tobacco Use Types Packs/Day Years Used Date Smoking Tobacco: Never Assessed Sex Assigned at Date Recorded Not on file documented as of this encounter Plan of Treatment Not on filedocumented as of this encounter Procedures Procedure Name Priority Date/Time Associated Diagnosis Comme nts LIPID PANEL AND Routine 04/18/2016 8:25 AM Hyperlipidemia, Res ults for this DIRECT LDL(IF CDT unspecified procedure are in NEEDED) hyperlipidemia type the resu lts section. VITAMIN D Routine 04/18/2016 8:25 AM Vitamin D deficiency R esults for this 25-HYDROXY, TOTAL CDT procedure are in the results section. BASIC METABOLIC Routine 04/18/2016 8:25 AM Essential hypertens ion Results for this PANEL CDT procedure are i n the results section. documented in this encounter Results Vitamin D 25-Hydroxy, Total (04/18/2016 8:25 AM CDT) P athologist Signature Vitamin D 25 Oh 34 20 - 80 HP CONVERSION ng/mL Comment: Deficiency = <20 Adequate ??= 20-29 Preferred = 30-50 Uncertain safety = 51-80 High = >80 Specimen Anatomical Collection Method Collection Time Receive d Time (Source) Location / / Volume Laterality 04/18/2016 8:25 AM 6 CDT 12:58 PM CDT Narrative HP CONVERSION - 04/18/2016 2:10 PM CDT Performed at [facility] [id number] [place] [address] CLIA number [id number] Annette Chavira MD LAB_1 Performing Organization Address City/[facility] Phon e Number HP CONVERSION (ABNORMAL) Lipid Panel and Direct LDL(If Needed) (04/18/2016 8:25 AM CDT) [facility] gist Method Time Signature Cholesterol 171 0 - 199 HP CONVERSION mg/dL Triglycerides 155 (H) 4 - 149 HP CONVERSION mg/dL HDL Cholesterol 49 >39 mg/dL HP CONVERSION Cholesterol/HDL 3.5 HP CONVERSION Ratio Screen LDL Calculated 91 19 - 130 HP CONVERSION mg/dL Length Of Fast 12.0 HP CONVERSION Specimen Anatomical Collection Method Collection Time Receive d Time (Source) Location / / Volume Laterality 04/18/2016 8:25 AM 6 2:37 CDT PM CDT Narrative HP CONVERSION - 04/18/2016 2:57 PM CDT Performed at [facility], [address] [place] [id number] CLIA# [id number] Annette Chavira MD LAB_1 Performing Organization Address [facility] Phon e Number HP CONVERSION Basic Metabolic Panel (04/18/2016 8:25 AM CDT) P athologist Signature Creatinine Serum 0.78 0.55 - HP CONVERSION 1.02 mg/dL Lab Glucose 96 60 - 100 HP CONVERSION mg/dL Bicarbonate 26 22 - 29 HP CONVERSION mmol/L Chloride 107 98 - 107 HP CONVERSION mmol/L Potassium 4.2 3.5 - 5.2 HP CONVERSION mmol/L Sodium 143 136 - 145 HP CONVERSION mmol/L Blood Urea 14 9 - 26 HP CONVERSION Nitrogen mg/dL Calcium 9.6 8.4 - 10.2 HP CONVERSION mg/dL Est GFR >60 >60 HP CONVERSION Am mL/min/1.7 3m2 Est GFR Non-Afr >60 >60 HP CONVERSION Am mL/min/1.7 3m2 Comment: Normal>60, moderate decrease 30 - 59, se rosalinda decrease 15 - 29, renal failure <15 mL/min/1.73 m2 NOTE: ??Choose the eGFR result above alissa ropriate for the race of the patient. Specimen Anatomical Collection Method Collection Time Receive d Time (Source) Location / / Volume Laterality 04/18/2016 8:25 AM 04/18/ 6 2:37 CDT PM CDT Narrative HP CONVERSION - 04/18/2016 2:57 PM CDT Performed at [facility], [address] [place] [address] CLIA# [id number] Annette Chavira MD LAB_1 Performing Organization Address City/State/ZIP Code Phon e Number HP CONVERSION documented in this encounter Visit Diagnoses Diagnosis Essential hypertension (HRC) Unspecified essential hypertension Hyperlipidemia, unspecified hyperlipidem ia type (HRC) Vitamin D deficiency (HRC) Unspecified vitamin D deficiency documented in this encounter Care Teams Employment Instructional Associate Relationship Specialty Start Date End Date Annette Chavira MD PCP - General 04/18/16 03/21/17 [address] [facility] [address] [place] [address] documented as of this encounter
--- OUTSIDE RECORDS SUMMARY | 2022-08-15 14:56 | XMS_ITS | Encounter Summary ---
:1940 Author Organization [facility] Address [address] [place] [address] Care Team Providers Name Role Phone Dirk Ruiz MD Primary Care Provider Encounter Details Date Type Department Care Team Description 07/22/2012 Imaging [facility] [address] [place] [address] Social History Tobacco Use Types Packs/Day Years Used Date Smoking Tobacco: Never Assessed Sex Assigned at Date Recorded Not on file documented as of this encounter Plan of Treatment Not on filedocumented as of this encounter Visit Diagnoses Not on filedocumented in this encounter Care Teams Senior Software Development Manager Relationship Specialty Start Date End Date Dirk Ruiz MD PCP - General 02/05/11 04/15/15 [address] [place], [place] [id number] documented as of this encounter
--- OUTSIDE RECORDS SUMMARY | 2022-08-15 14:56 | XMS_ITS | Encounter Summary ---
:1940 Author Organization [facility] Address [address] [place] [address] Care Team Providers Name Role Phone Annette Chavira MD Primary Care Provider Encounter Details Date Type Department Care Team Description 04/16/2015 Lab Visit [facility] Unspecified essential hypert ension; [address] [facility] Oth er and unspecified hyperlipidemia; [place] [address] Social History Tobacco Use Types Packs/Day Years Used Date Smoking Tobacco: Never Assessed Sex Assigned at Date Recorded Not on file documented as of this encounter Progress Notes Maranda Gutierrez LPN - 04/16/2015 4:54 PM CDT Quick Note: Patient informed of clinician notes as documented in above message. Patient verbalized understanding. Annette Chavira - 04/16/2015 4:45 PM CDT Quick Note: please call It was a pleasure seeing you at your recent visit. I would like to let you know that we got the results of your tests back. Vit [place] [id number] ui of vitamin D to be taken weekly for 3 months Repeat Vit d level after three months Continue after three month with 2000 ui of vitamin D ( OTC ) daily The rest of the results are within normal limits. Based on these results, no changes in your current management are recommended. Please do not hesitate to contact me if any questions regarding these recommendations Thank you. Annette Chavira MD Family Medicine documented in this encounter Miscellaneous Notes Miscellaneous - 12/14/2016 7:05 AM CSTNotes Recorded by Maranda Gutierrez LPN on 04/16/2015 at 4:54 PMPatient informed of clinician notes as documented in above message. Patient verbalized understanding.------Notes Recorded by Annette Chavira MD on 04/16/2015 at 4:45 PMplease callIt was a pleasure seeing you at your recent visit.I would like to let you know that we got the results of your tests back.Vit [place] [id number] ui of vitamin D to be taken weekly for 3 monthsRepeat Vit d level after three monthsContinue after three month with 2000 ui of vitamin D ( OTC ) dailyThe rest of the results are within normal limits.Based on these results, no changes in your current management are recommended.Please do not hesitate to contact me if any questions regarding these recommendationsThank you.Yaa Sheriff Medicine T WRAPPER [facility] - 12/14/2016 7:05 AM CSTNotes Recorded by Maranda Gutierrez LPN on 04/16/2015 at 4:54 PMPatient informed of clinician notes as documented in above message. Patient verbalized understanding.------Notes Recorded by Annette Chavira MD on 04/16/2015 at 4:45 PMplease callIt was a pleasure seeing you at your recent visit.I would like to let you know that we got the results of your tests back.Vit [place] [id number] ui of vitamin D to be taken weekly for 3 monthsRepeat Vit d level after three monthsContinue after three month with 2000 ui of vitamin D ( OTC ) dailyThe rest of the results are within normal limits.Based on these results, no changes in your current management are recommended.Please do not hesitate to contact me if any questions regarding these recommendationsThank you.Yaa Sheriff Medicine T WRAPPER Miscellaneous - 12/14/2016 7:05 AM CSTNotes Recorded by Maranda Gutierrez LPN on 04/16/2015 at 4:54 PMPatient informed of clinician notes as documented in above message. Patient verbalized understanding.------Notes Recorded by Annette Chavira MD on 04/16/2015 at 4:45 PMplease callIt was a pleasure seeing you at your recent visit.I would like to let you know that we got the results of your tests back.Vit [place] [id number] ui of vitamin D to be taken weekly for 3 monthsRepeat Vit d level after three monthsContinue after three month with 2000 ui of vitamin D ( OTC ) dailyThe rest of the results are within normal limits.Based on these results, no changes in your current management are recommended.Please do not hesitate to contact me if any questions regarding these recommendationsThank you.Yaa Sheriff Medicine T WRAPPER Yesy - 12/14/2016 7:05 AM CSTNotes Recorded by Maranda Gutierrez LPN on 04/16/2015 at 4:54 PMPatient informed of clinician notes as documented in above message. Patient verbalized understanding.------Notes Recorded by Annette Chavira MD on 04/16/2015 at 4:45 PMplease callIt was a pleasure seeing you at your recent visit.I would like to let you know that we got the results of your tests back.Vit [place] [id number] ui of vitamin D to be taken weekly for 3 monthsRepeat Vit d level after three monthsContinue after three month with 2000 ui of vitamin D ( OTC ) dailyThe rest of the results are within normal limits.Based on these results, no changes in your current management are recommended.Please do not hesitate to contact me if any questions regarding these recommendationsThank you.Yaa Sheriff Medicine T WRAPPER Yesy - 12/14/2016 7:05 AM CSTNotes Recorded by Maranda Gutierrez LPN on 04/16/2015 at 4:54 PMPatient informed of clinician notes as documented in above message. Patient verbalized understanding.------Notes Recorded by Annette Chavira MD on 04/16/2015 at 4:45 PMplease callIt was a pleasure seeing you at your recent visit.I would like to let you know that we got the results of your tests back.Vit [place] [id number] ui of vitamin D to be taken weekly for 3 monthsRepeat Vit d level after three monthsContinue after three month with 2000 ui of vitamin D ( OTC ) dailyThe rest of the results are within normal limits.Based on these results, no changes in your current management are recommended.Please do not hesitate to contact me if any questions regarding these recommendationsThank you.Yaa Sheriff Medicine T WRAPPER Miscellaneous - 12/14/2016 7:05 AM CSTNotes Recorded by Maranda Gutierrez LPN on 04/16/2015 at 4:54 PMPatient informed of clinician notes as documented in above message. Patient verbalized understanding.------Notes Recorded by Annette Chavira MD on 04/16/2015 at 4:45 PMplease callIt was a pleasure seeing you at your recent visit.I would like to let you know that we got the results of your tests back.Vit [place] [id number] ui of vitamin D to be taken weekly for 3 monthsRepeat Vit d level after three monthsContinue after three month with 2000 ui of vitamin D ( OTC ) dailyThe rest of the results are within normal limits.Based on these results, no changes in your current management are recommended.Please do not hesitate to contact me if any questions regarding these recommendationsThank you.Yaa Sheriff Medicine T WRAPPER documented in this encounter Plan of Treatment Not on filedocumented as of this encounter Procedures Procedure Name Priority Date/Time Associated Diagnosis Comme nts TSH AND FREE T4 Routine 04/16/2015 8:58 Unspecified essential Results for this (FRT4 IF TSH ABNORM) AM CDT hypertension (HRC) p rocedure are in the results section. LIPID PANEL AND Routine 04/16/2015 8:58 Other and unspecified Results for this DIRECT LDL(IF AM CDT hyperlipidemia (HRC) proced ure are in NEEDED) the results section. VITAMIN D Routine 04/16/2015 8:58 Vitamin D deficiency Resu lts for this 25-HYDROXY, TOTAL AM CDT procedure are in the results section. COMPLETE BLOOD STAT 04/16/2015 8:58 Unspecified essential R esults for this COUNT-W/DIFF AM CDT hypertension (HRC) procedure are in the results section. BASIC METABOLIC Routine 04/16/2015 8:58 Unspecified essential Results for this PANEL AM CDT hypertension (HRC) procedure are in the results section. DIFFERENTIAL STAT 04/16/2015 8:58 Results for this AM CDT procedure are i n the results section. documented in this encounter Results Differential (04/16/2015 8:58 AM CDT) Analysis Performed At Patho logist Time Signature Absolute 3.6 1.8 - 8.0 HP CONVERSION Neutrophils k/cmm Absolute 1.8 1.1 - 4.0 HP CONVERSION Lymphocytes k/cmm Absolute 0.5 0.2 - 0.8 HP CONVERSION Monocytes k/cmm Absolute 0.2 0.0 - 0.5 HP CONVERSION Eosinophils k/cmm Absolute 0.0 0.0 - 0.2 HP CONVERSION Basophils k/cmm Immature 0.5 0.0 - 0.5 HP CONVERSION Granulocytes % Specimen Anatomical Collection Method Collection Time Receive d Time (Source) Location / / Volume Laterality 04/16/2015 8:58 AM 5 8:58 CDT AM CDT Narrative HP CONVERSION - 04/16/2015 9:05 AM CDT Performed at [facility], [address] [place] [address] Transcriptions 12/14/2016 7:05 AM CSTNotes Recorded by Maranda Gutierrez LPN on 04/16/2015 at 4:54 PMPatient informed of clinician notes as documented in above message. Patient verbalized understanding.------Notes Recorded by Annette Chavira MD on 04/16/2015 at 4:45 PM please callIt was a pleasure seeing you at your recent visit.I would like to let you know that we got the results of your tests back.Vit [place] [id number] ui of vitamin D to be taken weekly for 3 months Repeat Vit d level after three monthsCon tinue after three month with 2000 ui of vitamin D ( OTC ) dailyThe rest of the results are within normal limits.Based on these results, no changes in your current management are recommended. Please do not hesitate to contact me if any questions regarding these recommendationsThank you.Annette Chavira MDPittsfield General Hospital Medicine Annette Chavira MD LAB_1 Performing Organization Address City/State/ZIP Code Phon e Number HP CONVERSION Complete Blood Count W/Diff (04/16/2015 8:58 AM CDT) P athologist Signature White Blood Cell 6.2 3.8 - 11.0 HP CONVERSIO N Count k/cmm Red Blood Cell 4.75 3.70 - HP CONVERSION Count 5.20 m/cmm Hemoglobin 13.9 11.8 - HP CONVERSION 15.5 g/dL Hematocrit 42.2 35.0 - HP CONVERSION 46.0 % Mean Corpuscular 88.8 80.0 - HP CONVERSION Volume 100.0 fL RDW 12.8 11.0 - HP CONVERSION 15.0 % Platelet Count 213 140 - 450 HP CONVERSION k/cmm Specimen Anatomical Collection Method Collection Time Receive d Time (Source) Location / / Volume Laterality 04/16/2015 8:58 AM 5 8:58 CDT AM CDT Narrative HP CONVERSION - 04/16/2015 9:05 AM CDT Performed at [facility], [address] [place] [id number] Transcriptions 12/14/2016 7:05 AM CSTNotes Recorded by Maranda Gutierrez LPN on 04/16/2015 at 4:54 PMPatient informed of clinician notes as documented in above message. Patient verbalized understanding.------Notes Recorded by Annette Chavira MD on 04/16/2015 at 4:45 PM please callIt was a pleasure seeing you at your recent visit.I would like to let you know that we got the results of your tests back.Vit [place] [id number] ui of vitamin D to be taken weekly for 3 months Repeat Vit d level after three monthsCon tinue after three month with 2000 ui of vitamin D ( OTC ) dailyThe rest of the results are within normal limits.Based on these results, no changes in your current management are recommended. Please do not hesitate to contact me if any questions regarding these recommendationsThank you.Nory SheriffPiedmont [facility] Annette Chavira MD LAB_1 Performing Organization Address [facility] Phon e Number HP CONVERSION TSH AND FREE T4 (FRT4 IF TSH ABNORM) (04/16/2015 8:58 AM CDT) P athologist Signature Thyroid 2.62 0.20 - HP CONVERSION Stimulating 4.50 mIU/L Hormone Specimen Anatomical Collection Method Collection Time Receive d Time (Source) Location / / Volume Laterality 04/16/2015 8:58 AM 5 CDT 12:51 PM CDT Narrative HP CONVERSION - 04/16/2015 2:03 PM CDT Performed at [address] [address] Transcriptions 12/14/2016 7:05 AM CSTNotes Recorded by Maranda Gutierrez LPN on 04/16/2015 at 4:54 PMPatient informed of clinician notes as documented in above message. Patient verbalized understanding.------Notes Recorded by Annette Chavira MD on 04/16/2015 at 4:45 PM please callIt was a pleasure seeing you at your recent visit.I would like to let you know that we got the results of your tests back.Vit [place] [id number] ui of vitamin D to be taken weekly for 3 months Repeat Vit d level after three monthsCon tinue after three month with 2000 ui of vitamin D ( OTC ) dailyThe rest of the results are within normal limits.Based on these results, no changes in your current management are recommended. Please do not hesitate to contact me if any questions regarding these recommendationsThank you.Nory SheriffPied[facility] Annette Chavira MD LAB_1 Performing Organization Address City/[facility] Code Phon e Number HP CONVERSION (ABNORMAL) Vitamin D 25-Hydroxy, Total (04/16/2015 8:58 AM CDT) P athologist Signature Vitamin D 25 16 (L) 20 - 80 HP CONVERSION Oh ng/mL Comment: Deficiency = <20 Adequate ??= 20-29 Preferred = 30-50 Uncertain safety = 51-80 High = >80 Specimen Anatomical Collection Method Collection Time Receive d Time (Source) Location / / Volume Laterality 04/16/2015 8:58 AM 5 CDT 12:49 PM CDT Narrative HP CONVERSION - 04/16/2015 2:58 PM CDT Performed at [facility], [facility] [place] [address] Transcriptions 12/14/2016 7:05 AM CSTNotes Recorded by Maranda Gutierrez LPN on 04/16/2015 at 4:54 PMPatient informed of clinician notes as documented in above message. Patient verbalized understanding.------Notes Recorded by Annette Chavira MD on 04/16/2015 at 4:45 PM please callIt was a pleasure seeing you at your recent visit.I would like to let you know that we got the results of your tests back.Vit [place] [id number] ui of vitamin D to be taken weekly for 3 months Repeat Vit d level after three monthsCon tinue after three month with 2000 ui of vitamin D ( OTC ) dailyThe rest of the results are within normal limits.Based on these results, no changes in your current management are recommended. Please do not hesitate to contact me if any questions regarding these recommendationsThank you.Annette Chavira MDFasaint john of god hospital Medicine Annette Chavira MD LAB_1 Performing Organization Address City/State/ZIP Code Phon e Number HP CONVERSION Lipid Panel and Direct LDL(If Needed) (04/16/2015 8:58 AM CDT) [facility] Method Time Signature Cholesterol 172 0 - 200 HP CONVERSION mg/dL Triglycerides 146 0 - 149 HP CONVERSION mg/dL HDL Cholesterol 49 >39 mg/dL HP CONVERSION Cholesterol/HDL 3.5 HP CONVERSION Ratio Screen LDL Calculated 94 19 - 130 HP CONVERSION mg/dL Length Of Fast 12.0 HP CONVERSION Specimen Anatomical Collection Method Collection Time Receive d Time (Source) Location / / Volume Laterality 04/16/2015 8:58 AM 5 CDT 12:51 PM CDT Narrative HP CONVERSION - 04/16/2015 2:03 PM CDT Performed at [facility], [facility] [place] [address] Transcriptions 12/14/2016 7:05 AM CSTNotes Recorded by Maranda Gutierrez LPN on 04/16/2015 at 4:54 PMPatient informed of clinician notes as documented in above message. Patient verbalized understanding.------Notes Recorded by Annette Chavira MD on 04/16/2015 at 4:45 PM please callIt was a pleasure seeing you at your recent visit.I would like to let you know that we got the results of your tests back.Vit [place] [id number] ui of vitamin D to be taken weekly for 3 months Repeat Vit d level after three monthsCon tinue after three month with 2000 ui of vitamin D ( OTC ) dailyThe rest of the results are within normal limits.Based on these results, no changes in your current management are recommended. Please do not hesitate to contact me if any questions regarding these recommendationsThank you.Annette Chavira MDFasaint john of god hospital Medicine Annette Chavira MD LAB_1 Performing Organization Address City/State/ZIP Code Phon e Number HP CONVERSION Basic Metabolic Panel (04/16/2015 8:58 AM CDT) athologist Signature Creatinine Serum 0.8 0.4 - 1.3 HP CONVERSION mg/dL Lab Glucose 94 60 - 100 HP CONVERSION mg/dL Bicarbonate 29 23 - 33 HP CONVERSION mmol/L Chloride 106 98 - 110 HP CONVERSION mEq/L Potassium 4.3 3.5 - 5.2 HP CONVERSION mEq/L Sodium 144 137 - 147 HP CONVERSION mEq/L Blood Urea 13 5 - 26 HP CONVERSION Nitrogen mg/dL Calcium 9.5 8.5 - 10.5 HP CONVERSION mg/dL Est GFR >60 >60 [...] Time (Source) Location / / Volume Laterality 04/16/2015 8:58 AM 5 CDT 12:51 PM CDT Narrative HP CONVERSION - 04/16/2015 2:03 PM CDT Performed at [address] [place] [address] Transcriptions 12/14/2016 7:05 AM CSTNotes Recorded by Maranda Gutierrez LPN on 04/16/2015 at 4:54 PMPatient informed of clinician notes as documented in above message. Patient verbalized understanding.------Notes Recorded by Annette Chavira MD on 04/16/2015 at 4:45 PM please callIt was a pleasure seeing you at your recent visit.I would like to let you know that we got the results of your tests back.Vit [place] [id number] ui of vitamin D to be taken weekly for 3 months Repeat Vit d level after three monthsCon tinue after three month with 2000 ui of vitamin D ( OTC ) dailyThe rest of the results are within normal limits.Based on these results, no changes in your current management are recommended. Please do not hesitate to contact me if any questions regarding these recommendationsThank you.Annette Chavira MDFamily Medicine Annette Chavira MD LAB_1 Performing Organization Address City/State/ZIP Code Phon e Number HP CONVERSION documented in this encounter Visit Diagnoses Diagnosis Unspecified essential hypertension (HRC) Unspecified essential hypertension Other and unspecified hyperlipidemia (HR C) Other and unspecified hyperlipidemia Vitamin D deficiency (HRC) Unspecified vitamin D deficiency documented in this encounter Care Teams Scrapper Relationship Specialty Start Date End Date Annette Chavira MD PCP - General 04/16/15 04/16/[id number] [place] [address] documented as of this encounter
--- OUTSIDE RECORDS SUMMARY | 2022-08-15 14:56 | XMS_ITS | Encounter Summary ---
:1940 Author Organization [facility] Address [address] [place] [address] Care Team Providers Name Role Phone Dirk Ruiz MD Primary Care Provider Reason for Visit Reason Comments Refill Encounter Details Date Type Department Care Team Description 07/12/2013 Refill [facility] Dirk Mcgregor MD Refill [id number] [facility] [address] [place] [address] [place] [address] [phone] Social History Tobacco Use Types Packs/Day Years Used Date Smoking Tobacco: Never Assessed Sex Assigned at Date Recorded Not on file documented as of this encounter Nursing Notes Lisa Pak, RN - 07/15/2013 7:34 AM CDT Renewed medication per medication refill protocol. has appt 07/21/13 documented in this encounter Plan of Treatment Not on filedocumented as of this encounter Visit Diagnoses Not on filedocumented in this encounter Care Teams Chief Librarian Work With Blind Relationship Specialty Start Date End Date Dirk Ruiz MD PCP - General 02/05/11 04/15/15 [address] [place], [place] [id number] documented as of this encounter
--- OUTSIDE RECORDS SUMMARY | 2022-08-15 14:56 | XMS_ITS | Encounter Summary ---
:1940 Author Organization [facility] Address [address] [place] [address] Care Team Providers Name Role Phone Dirk Ruiz MD Primary Care Provider Encounter Details Date Type Department Care Team Description 07/19/2012 Lab Visit [facility] Other and unspecified hyperl ipidemia; [address] [facility] [address] [place] [address] Social History Tobacco Use Types Packs/Day Years Used Date Smoking Tobacco: Never Assessed Sex Assigned at Date Recorded Not on file documented as of this encounter Plan of Treatment Not on filedocumented as of this encounter Procedures Procedure Name Priority Date/Time Associated Diagnosis Comme nts URINE MICROSCOPIC Routine 07/19/2012 8:26 Results for this AM CDT procedure are i n the results section. GLUCOSE Routine 07/19/2012 8:26 Unspecified essential Res ults for this AM CDT hypertension (HRC) procedure are in the results section. URINALYSIS Routine 07/19/2012 8:26 Unspecified essential Res ults for this ROUTINE(MICRO IF AM CDT hypertension (HRC) proce dure are in POS) the results section. LIPID PANEL AND Routine 07/19/2012 8:26 Other and unspecified Results for this DIRECT LDL(IF AM CDT hyperlipidemia (HRC) proced ure are in NEEDED) the results section. CREATININE / GFR Routine 07/19/2012 8:26 Unspecified essential Results for this AM CDT hypertension (HRC) procedure are in the results section. HEMOGLOBIN, BLOOD Routine 07/19/2012 8:26 Unspecified essentia l Results for this AM CDT hypertension (HRC) procedure are in the results section. ELECTROLYTE PANEL Routine 07/19/2012 8:26 Unspecified essentia l Results for this AM CDT hypertension (HRC) procedure are in the results section. AST Routine 07/19/2012 8:26 Other and unspecified Res ults for this AM CDT hyperlipidemia (HRC) procedu re are in the results section. documented in this encounter Results (ABNORMAL) URINE MICROSCOPIC (07/19/2012 8:26 AM CDT) [facility] Method Time Signature Urine WBC 0-2 0 - 4 HP CONVERSION /HPF Urine RBC 0-2 0 - 2 HP CONVERSION /HPF Bacteria Urine Occasional (A) /HPF HP CONVERS ION Epithelial Few /HPF HP CONVERSION Cells Specimen Anatomical Collection Method Collection Time Receive d Time (Source) Location / / Volume Laterality 07/19/2012 8:26 AM 2 8:26 CDT AM CDT Narrative HP CONVERSION - 07/19/2012 11:04 AM CDT Performed at [facility], [address] [place] [address] Dirk Ruiz MD LAB_1 Performing Organization Address [facility] Phon e Number HP CONVERSION Hemoglobin, Blood (07/19/2012 8:26 AM CDT) P athologist Signature Hemoglobin 13.8 11.8 - 15.5 HP CONVERSION g/dL Specimen Anatomical Collection Method Collection Time Receive d Time (Source) Location / / Volume Laterality 07/19/2012 8:26 AM 2 8:26 CDT AM CDT Narrative HP CONVERSION - 07/19/2012 9:32 AM CDT Performed at [facility], [address] [place] [address] Dirk Ruiz MD LAB_1 Performing Organization Address City/[facility] Phon e Number HP CONVERSION AST (07/19/2012 8:26 AM CDT) [facility] Method Time Signature Aspartate 23 0 - 45 HP CONVERSION Aminotransferase U/L Specimen Anatomical Collection Method Collection Time Receive d Time (Source) Location / / Volume Laterality 07/19/2012 8:26 AM 2 CDT 11:10 AM CDT Dirk Ruiz MD LAB_1 Performing Organization Address [facility]/State/ZIP Code Phon e Number HP CONVERSION Creatinine / GFR (07/19/2012 8:26 AM CDT) athologist Signature Creatinine 0.8 0.4 - 1.3 HP CONVERSION Serum mg/dL Est GFR >60 >60 HP CONVERSION [...] Time (Source) Location / / Volume Laterality 07/19/2012 8:26 AM 2 CDT 11:10 AM CDT Dirk Ruiz MD LAB_1 Performing Organization Address City/[facility]/ZIP Code Phon e Number HP CONVERSION GLUCOSE (07/19/2012 8:26 AM CDT) athologist Signature Lab Glucose 89 60 - 100 HP CONVERSION mg/dL Specimen Anatomical Collection Method Collection Time Receive d Time (Source) Location / / Volume Laterality 07/19/2012 8:26 AM 2 CDT 11:10 AM CDT Dirk Ruiz MD LAB_1 Performing Organization Address City/State/ZIP Code Phon e Number HP CONVERSION (ABNORMAL) URINALYSIS ROUTINE(MICRO IF POS) (07/19/2012 8:26 AM CDT) [facility] Method Time Signature Urine Type Urine:clean HP CONVERSION cat Turbidity Clear Clear HP CONVERSION U BILI Negative Negative HP CONVERSION Blood Urine Trace (A) Negative HP CONVERSION Glucose, Negative Neg-30 HP CONVERSION Qualitative U mg/dL Ketones Negative Negative HP CONVERSION Leukocyte Negative Negative HP CONVERSION Esterase Urine Nitrite Urine Negative Negative HP CONVERSION pH Urine 6.0 5.0 - 8.0 HP CONVERSION Protein Urine Negative Neg - Trace HP CONVERSION mg/dL U Specific <=1.005 1.005 - HP CONVERSION Steens 1.030 Urobilinogen Negative Negative HP CONVERSION Urine Eu/dL Specimen Anatomical Collection Method Collection Time Receive d Time (Source) Location / / Volume Laterality Urine: 07/19/2012 8:26 AM 2 8:26 CDT AM CDT Narrative HP CONVERSION - 07/19/2012 11:04 AM CDT Performed at [facility], [address] [place] [address] Dirk Ruiz MD LAB_1 Performing Organization Address City/State/ZIP Code Phon e Number HP CONVERSION Electrolyte Panel (07/19/2012 8:26 AM CDT) P athologist Signature Sodium 145 137 - 147 HP CONVERSION mEq/L Potassium 4.1 3.5 - 5.2 HP CONVERSION mEq/L Chloride 107 98 - 110 HP CONVERSION mEq/L Bicarbonate 27 23 - 33 HP CONVERSION mmol/L Specimen Anatomical Collection Method Collection Time Receive d Time (Source) Location / / Volume Laterality 07/19/2012 8:26 AM 2 CDT 11:10 AM CDT Dirk Ruiz MD LAB_1 Performing Organization Address City/[facility]/ZIP Code Phon e Number HP CONVERSION Lipid Panel and Direct LDL(If Needed) (07/19/2012 8:26 AM CDT) Patholo gist Method Time Signature Cholesterol 163 0 - 200 HP CONVERSION mg/dL Triglycerides 146 0 - 149 HP CONVERSION mg/dL HDL Cholesterol 47 >39 mg/dL HP CONVERSION Cholesterol/HDL 3.5 HP CONVERSION Ratio Screen LDL Calculated 87 19 - 130 HP CONVERSION mg/dL Length Of Fast 12.0 HP CONVERSION Specimen Anatomical Collection Method Collection Time Receive d Time (Source) Location / / Volume Laterality 07/19/2012 8:26 AM 2 CDT 11:10 AM CDT Dirk Ruiz MD LAB_1 Performing Organization Address City/State/ZIP Code Phon e Number HP CONVERSION documented in this encounter Visit Diagnoses Diagnosis Other and unspecified hyperlipidemia (HR C) Other and unspecified hyperlipidemia Unspecified essential hypertension (HRC) Unspecified essential hypertension documented in this encounter Care Teams Space Officer Relationship Specialty Start Date End Date Dirk Ruiz MD PCP - General 02/05/11 04/15/15 [address] [place] [address] documented as of this encounter
--- OUTSIDE RECORDS SUMMARY | 2022-08-15 14:56 | XMS_ITS | Encounter Summary ---
:1940 Author Organization [facility] Address [address] [place] [address] Care Team Providers Name Role Phone Dirk Ruzi MD Primary Care Provider Reason for Visit Reason Comments Other Encounter Details Date Type Department Care Team Description 07/17/2011 Telephone [facility] [place] Other [address] [facility] [address] [place] [address] [place] [address] [phone] Social History Tobacco Use Types Packs/Day Years Used Date Smoking Tobacco: Never Assessed Sex Assigned at Date Recorded Not on file documented as of this encounter Nursing Notes Kandi Ramirez RN - 07/17/2011 3:37 PM CDT booked appt left pt voicemail. (sundayjul 24) faxed order. transfer pt's call to [phone] [phone] if any questions. Dirk Ruiz MD - 07/17/2011 10:53 AM CDT Kandi if cant be done ok in [place] Carmen Bella - 07/17/2011 10:37 AM CDT Please advise. Melinda Hazel - 07/17/2011 10:13 AM CDT Non -Symptom Message from Front Line Primary Care Provider: Dirk Ruiz MD, MD Message: needs assistance in scheduling a bone density test prior to 08/02. documented in this encounter Plan of Treatment Not on filedocumented as of this encounter Visit Diagnoses Not on filedocumented in this encounter Care Teams Field Reimbursement Manager Relationship Specialty Start Date End Date Dirk Ruiz MD PCP - General 02/05/11 04/15/15 [address] [place] [address] documented as of this encounter
--- OUTSIDE RECORDS SUMMARY | 2022-08-15 14:56 | XMS_ITS | Encounter Summary ---
:1940 Author Organization [facility] Address [address] [place] [address] Care Team Providers Name Role Phone Unavailable Primary Care Provider Unavailable Encounter Details Date Type Department Care Team Description 07/19/2015 Lab Visit [facility] Unspecified essential hypert ension; [address] [facility] [place] [address] Social History Tobacco Use Types Packs/Day Years Used Date Smoking Tobacco: Never Assessed Sex Assigned at Date Recorded Not on file documented as of this encounter Plan of Treatment Not on filedocumented as of this encounter Procedures Procedure Name Priority Date/Time Associated Diagnosis Comme nts VITAMIN D Routine 07/19/2015 8:28 AM Vitamin D deficiency R esults for this 25-HYDROXY, TOTAL CDT procedure are in the results section. BASIC METABOLIC Routine 07/19/2015 8:28 AM Unspecified essenti al Results for this PANEL CDT hypertension (HRC) procedure are in the results section. documented in this encounter Results Vitamin D 25-Hydroxy, Total (07/19/2015 8:28 AM CDT) athologist Signature Vitamin D 25 Oh 56 20 - 80 HP CONVERSION ng/mL Comment: Deficiency = <20 Adequate ??= 20-29 Preferred = 30-50 Uncertain safety = 51-80 High = >80 Specimen Anatomical Collection Method Collection Time Receive d Time (Source) Location / / Volume Laterality 07/19/2015 8:28 AM 5 CDT 12:08 PM CDT Narrative HP CONVERSION - 07/19/2015 1:37 PM CDT Performed at [address] [address] Annette Chavira MD LAB_1 Performing Organization Address City/[facility]/ZIP Code Phon e Number HP CONVERSION Basic Metabolic Panel (07/19/2015 8:28 AM CDT) P athologist Signature Creatinine Serum 0.8 0.4 - 1.3 HP CONVERSION mg/dL Lab Glucose 93 60 - 100 HP CONVERSION mg/dL Bicarbonate 32 23 - 33 HP CONVERSION mmol/L Chloride 106 98 - 110 HP CONVERSION mEq/L Potassium 4.8 3.5 - 5.2 HP CONVERSION mEq/L Sodium 147 137 - 147 HP CONVERSION mEq/L Blood Urea 17 5 - 26 HP CONVERSION Nitrogen mg/dL [...] Time (Source) Location / / Volume Laterality 07/19/2015 8:28 AM 5 CDT 12:10 PM CDT Narrative HP CONVERSION - 07/19/2015 12:44 PM CD[place] [address] Annette Chavira MD LAB_1 Performing Organization Address [facility]/ZIP Code Phon e Number HP CONVERSION documented in this encounter Visit Diagnoses Diagnosis Unspecified essential hypertension (HRC) Unspecified essential hypertension Vitamin D deficiency (HRC) Unspecified vitamin D deficiency documented in this encounter
--- OUTSIDE RECORDS SUMMARY | 2022-08-15 14:56 | XMS_ITS | Encounter Summary ---
:1940 Author Organization [facility] Address [address] [place] [address] Care Team Providers Name Role Phone Veronica Heredia DO Primary Care Provider Reason for Referral Procedure/Equipment (Routine) - Incomplete Specialty Diagnoses / Procedures Referred By Contact Refer red To Contact Diagnoses Encounter for screening mammogram for malignant neoplasm of breast Veronica Heredia DO Procedures MM Mammogram Screening Bilat W CAD [address] [facility] [place] [address] Referral ID Status Reason Start Date Expiration Date Visits V isits Requested Authorized [id number] Incomplete 04/19/2017 07/19/2018 1 1 (Routine) - Closed Specialty Diagnoses / Procedures Referred By Contact Refer red To Contact Diagnoses Screening for colon cancer Veronica Heredia DO Procedures Endoscopy, colon, diagnostic [address] [facility] [place] [address] Referral ID Status Reason Start Date Expiration Date Visits Requ ested Visits Authorized [id number] Closed 04/19/2017 07/19/2018 1 1 Reason for Visit Reason Comments ROUTINE HEALTH MAINTENANCE Encounter Details Date Type Department Care Team Description 04/19/2017 Office Visit Veronica Frazier Well adul t exam (Primary Dx); Medicine DO Essential hypertension; [address] [facility] [address] [address] Hyperlipid emia, unspecified hyperlipidemia type; [facility] C[facility] Encounter for screening mammogram for ma lignant neoplasm of breast; [place] [address] [place], [place] Screening for colon cancer; [phone] [id number] Need for Tdap vaccination Social History Tobacco Use Types Packs/Day Years [...] Sign Reading Time Taken Comments Blood Pressure 134/82 04/19/2017 9:58 AM CDT Pulse 62 04/19/2017 8:45 AM CDT Temperature - - Respiratory Rate - - Oxygen Saturation - - Inhaled Oxygen Concentration - - Weight 94.8 kg (209 lb) 04/19/2017 8:45 AM CDT Height 161.5 cm (5' 3.58) 04/19/2017 8:45 AM CDT Body Mass Index 36.35 04/19/2017 8:45 AM CDT documented in this encounter Patient Instructions Patient InstructionsVeronica Heredia, DO - 04/19/2017 9:33 AM CDT Well Visit, Over 65: Care Instructions Your Care Instructions Physical exams can help you stay healthy. Your doctor has checked your overall health and may have suggested ways to take good care of yourself. He or she also may have recommended tests. At home, you can help prevent illness with healthy eating, regular exercise, and other steps. Follow-up care is a figueroa part of your treatment and safety. Be sure to make and go to all appointments, and call your doctor if you are having problems. It's also a good idea to know your test results and keep a list of the medicines you take. How can you care for yourself at home? ?? Reach and stay at a healthy weight. This will lower your risk for many problems, such as obesity,diabetes, heart disease, and high blood pressure. ?? Get at least 30 minutes of exercise on most days of the week. Walking is a good choice. You also may want to do other activities, such as running, swimming, cycling, or playing tennis or team sports. ?? Do not smoke. Smoking can make health problems worse. If you need help quitting, talk to your doctor about stop-smoking programs and medicines. These can increase your chances of quitting for good. ?? Protect your skin from too much sun. When you're outdoors from 10 a.m. to 4 p.m., stay in the shade or cover up with clothing and a hat with a wide brim. Wear sunglasses that block UV rays. Even when it's cloudy, put broad-spectrum sunscreen (SPF 30 or higher) on any exposed skin. ?? See a dentist one or two times a year for checkups and to have your teeth cleaned. ?? Wear a seat belt in the car. ?? Limit alcohol to 2 drinks a day for men and 1 drink a day for women. Too much alcohol can cause health problems. Follow your doctor's advice about when to have certain tests. These tests can spot problems early. For men and women ?? Cholesterol. Your doctor will tell you how often to have this done based on your overall health and other things that can increase your risk for heart attack and stroke. ?? Blood pressure. Have your blood pressure checked during a routine doctor visit. Your doctor will tell you how often to check your blood pressure based on your age, your blood pressure results, and other factors. ?? Diabetes. Ask your doctor whether you should have tests for diabetes. ?? Vision. Experts recommend that you have yearly exams for glaucoma and other age-related eye problems. ?? Hearing. Tell your doctor if you notice any change in your hearing. You can have tests to find out how well you hear. ?? Colon cancer tests. Keep having colon cancer tests as your doctor recommends. You can have one ofseveral types of tests. ?? Heart attack and stroke risk. At least every 4 to 6 years, you should have your risk for heart attack and stroke assessed. Your doctor uses factors such as your age, blood pressure, cholesterol, andwhether you smoke or have diabetes to show what your risk for a heart attack or stroke is over the next 10 years. ?? Osteoporosis. Talk to your doctor about whether you should have a bone density test to find out whether you have thinning bones. Also ask your doctor about whether you should take calcium and vitamin D supplements. For women ?? Pap test and pelvic exam. You may no longer need a Pap test. Talk with your doctor about whether to stop or continue to have Pap tests. ?? Breast exam and mammogram. Ask how often you should have a mammogram, which is an X-ray of your breasts. A mammogram can spot breast cancer before it can be felt and when it is easiest to treat. ?? Thyroid disease. Talk to your doctor about whether to have your thyroid checked as part of a regular physical exam. Women have an increased chance of a thyroid problem. For men ?? Prostate exam. Talk to your doctor about whether you should have a blood test (called a PSA test)for prostate cancer. Experts disagree on whether men should have this test. Some experts recommend that you discuss the benefits and risks of the test with your doctor. ?? Abdominal aortic aneurysm. Ask your doctor whether you should have a test to check for an aneurysm. You may need a test if you ever smoked or if your parent, brother, sister, or child has had an aneurysm. When should you call for help? Watch closely for changes in your health, and be sure to contact your doctor if you have any problems or symptoms that concern you. Where can you learn more? 1. Go to [employer]/SP3H or [employer]. 2. Enter K859 in the search box. Current as of: May 23, 2016 Content Version: 11.2 ?? 3112-1716 [employer]. I recommend eating 5-7 fruits and vegetables daily. Taking vitamin D3 800 international units daily.Consuming 3 servings of calcium rich food to reach at least 1200 mg of calcium from food. Moderate exercise daily for approximately 30 minutes-1 hour to improve cardiovascular fitness. Please wear 30 spf when out in the sun to protect against skin cancer. documented in this encounter Progress Notes Veronica Heredia DO - 04/19/2017 9:00 AM CDT ANNUAL FEMALE PHYSICAL CHIEF COMPLAINT: Chief Complaint Patient presents with ??? ROUTINE HEALTH MAINTENANCE HISTORY OF PRESENT ILLNESS: Michele Angulo is an 76 y.o. female who presents for her annual female well physical. She has the following concerns today: Here to establish care. History of hypertension and hyperlipidemia, currently taking atenolol, Cozaar and simvastatin, she is tolerating these medications well. No adverse side effects noted. She wouldlike refills today. She exercises most days of the week walking and doing cardio at the [facility]. She tolerates this well. No change in her exercise tolerance. No chest pain or difficulty breathing. She lives 6 months in [place] and 6 months in [place]. PAST MEDICAL HISTORY: Past Medical History: Diagnosis Date ??? Aspirin long-term use 04/16/2015 ASA therapy 75-162 mg/day is recommended for primary CVD prevention because patient -Is female 57 years who have at least one additional major risk factor such as: -HTN -Dyslipdemia ??? Calculus of kidney right side diagnosed CT scan in [place] asymptomatic 04/18/2016 ??? H/O colonoscopy 2007 due 2018 04/16/2015 ??? Hyperlipidemia 07/12/2005 takes zocor ??? Hypertension 04/11/2003 takes atenolol cozaar ??? Obesity (HRC) 04/30/2006 LW Onset: [id number] ??? Postmenopausal 04/16/2015 resolved ??? Zoster FAMILY HISTORY: Family History Problem Relation Age [...] Cancer, Endometrial Negative Family History SOCIAL HISTORY: Social History Substance Use Topics ??? Smoking status: Never Smoker ??? Smokeless tobacco: None ??? Alcohol use Yes Comment: Alcoholic Drinks/day: 1-2 x per year Social History Social History Narrative CURRENT MEDICATIONS: Outpatient Encounter Prescriptions as of 04/19/2017 Medication Sig Dispense Refill ??? aspirin EC 81 MG enteric coated tablet Take 1 tablet by mouth daily (every 24 hours). 13 ??? atenolol (TENORMIN) 50 MG tablet Take 1 Tab by mouth daily. 90 Tab 3 ??? cholecalciferol (VITAMIN D3) 1000 UNITS tablet Take 1 tablet by mouth daily (every 24 hours). 90tablet 3 ??? losartan (COZAAR) 50 MG tablet Take 1 Tab by mouth daily. 90 Tab 3 ??? simvastatin (ZOCOR) 20 MG tablet Take 1 Tab by mouth daily. 90 Tab 3 ??? [DISCONTINUED] ATENolol (TENORMIN) 50 MG tablet Take 1 Tab by mouth daily. 90 Tab 3 ??? [DISCONTINUED] losartan (COZAAR) 50 MG tablet Take 1 Tab by mouth daily. 90 Tab 3 ??? [DISCONTINUED] simvastatin (ZOCOR) 10 MG tablet TAKE ONE TABLET BY MOUTH ONE TIME DAILY IN THE P.M. 90 tablet 3 No facility-administered encounter medications on file as of 04/19/2017. ALLERGIES: Allergies Allergen Reactions ??? Other PN: LW Other1: -IV DYE/ANAPHYLAXIS ??? Penicillins PN: LW Reaction: HIVES ??? Sulfa Antibiotics PN: LW Reaction: HIVES Health Maintenence: Mammogram: Due, last mammogram July 2015 Colonoscopy: Due 2017 DEXA: Due 2018 Immunizations: Immunization History Administered Date(s) Administered ??? Flu Vac Preserv Free (3+yrs) 07/13/2009, 07/14/2010, 07/17/2011, 07/19/2012 ??? Influenza (Fluarix or Fluzone 0.5, 3+ yrs) 07/21/2013 ??? Influenza (Fluzone HighDose, 65+ yrs) 07/19/2015 ??? PCV13 (Prevnar) 04/16/2015 ??? PPSV23 (Pneumovax) 07/14/2010 ??? Td 07/20/1999, 07/13/2009 ??? Tdap 04/19/2017 ??? Zoster (shingles) 07/19/2012 Sexual Health/[employer] history: No LMP recorded. Patient is postmenopausal. , single. Pap smear: N/A REVIEW OF SYSTEMS: Positive: none A complete review of systems is otherwise negative. PHYSICAL EXAM: BP 134/82 Pulse 62 Ht 5' 3.58 (1.615 m) Wt 209 lb (94.8 kg) BMI 36.35 kg/m2 Gen: Alert, cooperative in no acute distress. Head: Normocephalic. Eyes: PERRLA, full EOM. No scleral icterus or conjunctivitis present. Ears: Normal pinnae, external auditory canals clear, tympanic membranes without effusion, erythema, retraction or bulging. Nose: Patent without deformity. Throat: Mucous membranes moist, without lesions, erythema, or exudate. Neck: Supple, without masses, lymphadenopathy, thyromegaly or tenderness. Heart: RRR without murmurs, rubs, or gallops. Respiratory: Normal respiratory rate and effort. Lungs are clear to auscultation. Equal breath sounds bilaterally. No wheezing or rales. Abdomen: Abdomen was soft, nondistended and nontender, normal sounds present. No obvious masses or organomegaly. Breast: No masses, dimpling or discharge. No supraclavicular or axillary lymphadenopathy noted. Extremities: No cyanosis, clubbing or edema. Musculoskeletal: Normal muscle tone. Normal gait. Normal get up and go from chair. Skin: [place], warm, dry. No suspicious appearing lesions. Neurologic: Alert, oriented x3, nonfocal. Cranial nerves intact. Normal muscle strength and sensory bilaterally. Normal short-term recall/memory. Psych: No anxiety or depression. Speech fluent. Normal hygiene. Normal thought process and content. Judgement and insight intact. Mood and affect are congruent. ASSESSMENT : Michele Angulo is an 76 y.o. female who presents for her annual well female exam. ICD-10-CM 1. Well adult exam Z00.00 2. Essential hypertension (HRC) I10 Basic Metabolic Panel atenolol (TENORMIN) 50 MG tablet losartan (COZAAR) 50 MG tablet 3. Hyperlipidemia, unspecified hyperlipidemia type (HRC) E78.5 Lipid Panel and Direct LDL(If Needed) simvastatin (ZOCOR) 20 MG tablet 4. Encounter for screening mammogram for malignant neoplasm of breast Z12.31 MM Mammogram Screening Bilat W CAD 5. Screening for colon cancer Z12.11 Endoscopy, colon, diagnostic 6. Need for Tdap vaccination Z23 TDAP PLAN : 1. Health Maintenance: Discussed ASCVD risk reduction, cancer screening guidelines, HIV/hepatitis C screening-N/A, sun protection, safety, routine dental and eye care, healthy eating including adequatecalcium, vitamin D and importance of regular weight bearing exercise. Immunizations-Tdap today, recom mend influenza vaccine recommended each fall. Pap smear- N/A. DEXA-Due 2018 2. Monitoring labs as above, refills provided, simvastatin increased from 10-20 mg daily, call if any adverse side effects noted with this change. She is taking a daily low-dose aspirin currently, no history of bleeding, tolerating this well. 3. RTC prn and annually for well care. This was dictated using a voice recognition program, typographical and sound like errors may occur. documented in this encounter Plan of Treatment Scheduled Orders Name Type Priority Associated Diagnoses Order S chedule Endoscopy, colon, GI Routine Screening for colon 1 O ccurrences starting diagnostic cancer 04/19/2017 unti l 04/18/2019 documented as of this encounter Results MM Mammogram Screening Bilat [...] ignancy. ?? Veronica Heredia DO RAD KERMIT (ABNORMAL) Basic Metabolic Panel (04/19/2017 10:00 AM CDT) P athologist Signature Creatinine 0.79 0.55 - PN SOFT Serum 1.02 mg/dL Lab Glucose 101 (H) 70 - 100 PN SOFT mg/dL Comment: The stated glucose range is for the fast ing state. Non-fasting glucose range is 70-180 mg/d L CO2 23 22 - 31 mmol/L PN SOFT Chloride 108 98 - 109 mmol/L PN SOFT Potassium 4.0 3.5 - 5.2 mmol/L PN SOFT Sodium 142 136 - 145 mmol/L PN SOFT Blood Urea Nitrogen 15 9 - 26 mg/dL PN SOFT Calcium 9.3 8.4 - 10.2 mg/dL PN SOFT Est [...] Time (Source) Location / / Volume Laterality 04/19/2017 10:00 04/19/2017 AM CDT 12:50 PM CDT Narrative PN SOFT - 04/19/2017 2:35 PM CDT Performed at [place] [id number] CLIA number [id number] Veronica Heredia DO LAB_1 Performing Organization Address City/State/ZIP Code Phon e Number PN SOFT [address] [place] [phone] (ABNORMAL) Lipid Panel and Direct LDL(If Needed) (04/19/2017 10:00 AM CDT) [facility] Method Time Signature Cholesterol 166 0 - 199 PN SOFT mg/dL Triglycerides 153 (H) 4 - 149 PN SOFT mg/dL HDL Cholesterol 44 >39 mg/dL PN SOFT Cholesterol/HDL 3.8 PN SOFT Ratio Screen LDL Calculated 91 19 - 130 PN SOFT mg/dL Length Of Fast 12.0 PN SOFT Specimen Anatomical Collection Method Collection Time Receive d Time (Source) Location / / Volume Laterality 04/19/2017 10:00 04/19/2017 AM CDT 12:50 PM CDT Narrative PN SOFT - 04/19/2017 2:35 PM CDT Performed at [facility], [address], [place] [address] CLIA number [id number] Veronica Heredia DO LAB_1 Performing Organization Address City/State/ZIP Code Phon e Number PN FREDI [address] [place] [address] documented in this encounter Visit Diagnoses Diagnosis Well adult exam - Primary Routine general medical examination at a health care facility Essential hypertension (HRC) Unspecified essential hypertension Hyperlipidemia, unspecified hyperlipidem ia type (HRC) Encounter for screening mammogram for ma lignant neoplasm of breast Other screening mammogram Screening for colon cancer Special screening for malignant neoplasm s, colon Need for Tdap vaccination Need for prophylactic vaccination with c ombined nuoctfbmyj-dcemoyt-oyyzlxmkx (DTP) vaccine Hyperlipidemia, unspecified hyperlipidem ia type (HRC) Essential hypertension (HRC) Unspecified essential hypertension Encounter for screening mammogram for ma lignant neoplasm of breast Other screening mammogram documented in this encounter Care Teams Wire Taper Relationship Specialty Start Date End Date Veronica Heredia DO PCP - General Family Practice 03/22/17 [address] [place] [facility] [place] [address] documented as of this encounter
--- OUTSIDE RECORDS SUMMARY | 2022-08-15 14:56 | XMS_ITS | Encounter Summary ---
:1940 Author Organization [facility] Address [address] [employer] [facility] [place] [address] Care Team Providers Name Role Phone Dirk Ruiz MD Primary Care Provider Encounter Details Date Type Department Care Team Description 07/25/2013 Imaging [facility] [address] M ammography Other screening mammogram [address] [place] [address] Social History Tobacco Use Types Packs/Day Years Used Date Smoking Tobacco: Never Assessed Sex Assigned at Date Recorded Not on file documented as of this encounter Plan of Treatment Not on filedocumented as of this encounter Procedures Procedure Name Priority Date/Time Associated Diagnosis Comme nts MM MAMMOGRAM Routine 07/25/2013 7:42 AM Other screening Result s for this SCREENING BILAT W CDT mammogram procedure are in CAD the results section. documented in this encounter Results MM Mammogram Screening Bilat W CAD (07/25/2013 7:42 AM CDT) Anatomical Region Laterality Modality Breast Bilateral Mammography Specimen (Source) Anatomical Location Collection Method / Collectio n Time Received Time / Laterality Volume Impressions 07/25/2013 9:06 AM CDT : BIRADS 2 Benign Finding(s) (overall) Follow Up Mammogram in 1 year - Both The results and recommendations of this examination will be communicated to the patient by the [facility] and we will attempt to schedule any recommended imaging follow up with the patient. Narrative 07/25/2013 9:06 AM CDT Compared to: 07/24/2012 MM MAMMOGRAM OSVALDO G DIGITAL UNILAT(XVWS), 07/22/2012 MM MAMMOGRAM DIGITAL SCRN W CAD, 011 MM MAMMOGRAM DIGITAL SCRN W CAD, 05/04/2006 MM MAMMOGRAM SCREENING W CAD FINDINGS: Bilateral screening mammogram was performed. The breasts are heterogeneously dense (51-75% fibrogland ular). There are benign-appearing calcification s present. No significant mass, calcifications or o ther abnormalities are seen in either breast. Procedure Note Herb Chance MD - 06/28/2016Form atting of this note might be different from the original. Compared to: 07/24/2012 MM MAMMOGRAM OSVALDO G DIGITAL UNILAT(XVWS), 07/22/2012 MM MAMMOGRAM DIGITAL SCRN W CAD, 011 MM MAMMOGRAM DIGITAL SCRN W CAD, 05/04/2006 MM MAMMOGRAM SCREENING W CAD FINDINGS: Bilateral screening mammogram was performed. The breasts are heterogeneously dense (51-75% fibrogland ular). There are benign-appearing calcification s present. No significant mass, calcifications or o ther abnormalities are seen in either breast. IMPRESSION : BIRADS 2 Benign Finding(s) (overall) Follow Up Mammogram in 1 year - Both The results and recommendations of this examination will be communicated to the patient by the [facility] and we will attempt to schedule any recommended imaging follow up with the patient. Dirk Ruiz MD RAD KERMIT documented in this encounter Visit Diagnoses Diagnosis Other screening mammogram documented in this encounter Care Teams Capacitor Tester Relationship Specialty Start Date End Date Dirk Ruiz MD PCP - General 02/05/11 04/15/15 [address] [place] [address] documented as of this encounter
--- OUTSIDE RECORDS SUMMARY | 2022-08-15 14:56 | XMS_ITS | Encounter Summary ---
:1940 Author Organization [facility] Address [address] [place] [address] Care Team Providers Name Role Phone Dirk Ruiz MD Primary Care Provider Reason for Visit Reason Comments BLOOD PRESSURE CHECK Encounter Details Date Type Department Care Team Description 06/02/2013 [facility] Visit [facility] Unspecifi ed essential Medicine hypertension (Primary [address] ) [place] [address] Social History Tobacco Use Types Packs/Day Years Used Date Smoking Tobacco: Never Assessed Sex Assigned at Date Recorded Not on file documented as of this encounter Last Filed Vital Signs Vital Sign Reading Time Taken Comments Blood Pressure 123/77 06/02/2013 2:10 PM CDT Pulse 83 06/02/2013 2:10 PM CDT Temperature - - Respiratory Rate - - Oxygen Saturation - - Inhaled Oxygen Concentration - - Weight - - Height - - Body Mass Index - - documented in this encounter Plan of Treatment Not on filedocumented as of this encounter Visit Diagnoses Diagnosis Unspecified essential hypertension (HRC) - Primary Unspecified essential hypertension documented in this encounter Care Teams Cutting Tool Sharpener Relationship Specialty Start Date End Date Dirk Ruiz MD PCP - General 02/05/11 04/15/15 [address] [place] [address] documented as of this encounter
--- OUTSIDE RECORDS SUMMARY | 2022-08-15 14:56 | XMS_ITS | Encounter Summary ---
:1940 Author Organization [facility] Address [address] [place] [address] Care Team Providers Name Role Phone Dirk Ruiz MD Primary Care Provider Encounter Details Date Type Department Care Team Description 07/21/2013 Lab Visit [facility] Other and unspecified hyperl ipidemia; [address] [facility] general medical examination at a health care facility; Drive [place]specified [place] [address] Social History Tobacco Use Types Packs/Day Years Used Date Smoking Tobacco: Never Assessed Sex Assigned at Date Recorded Not on file documented as of this encounter Plan of Treatment Not on filedocumented as of this encounter Procedures Procedure Name Priority Date/Time Associated Diagnosis Comme nts URINE MICROSCOPIC Routine 07/21/2013 8:32 Results for this AM CDT procedure are i n the results section. GLUCOSE Routine 07/21/2013 8:32 Routine general Results f or this AM CDT medical examination at [facility] are in a health care facility the r esults section. URINALYSIS Routine 07/21/2013 8:32 Routine general Results f or this ROUTINE(MICRO IF AM CDT medical examination at [facility] are in POS) a health care facility the r esults section. LIPID PANEL AND Routine 07/21/2013 8:32 Other and unspecified Results for this DIRECT LDL(IF AM CDT hyperlipidemia (HRC) proced ure are in NEEDED) the results section. CREATININE / GFR Routine 07/21/2013 8:32 Routine general Resul ts for this AM CDT medical examination at [facility] are in a health care facility the r esults section. ELECTROLYTE PANEL Routine 07/21/2013 8:32 Unspecified essentia l Results for this AM CDT hypertension (HRC) procedure are in the results section. AST Routine 07/21/2013 8:32 Routine general Results f or this AM CDT medical examination at [facility] are in a health care facility the r esults section. documented in this encounter Results (ABNORMAL) URINE MICROSCOPIC (07/21/2013 8:32 AM CDT) [facility] gist Method Time Signature Urine WBC 3-4 0 - 4 HP CONVERSION /HPF Urine RBC 0-2 0 - 2 HP CONVERSION /HPF Bacteria Urine Occasional (A) /HPF HP CONVERS ION Epithelial Few /HPF HP CONVERSION Cells Urine Mucus Few /LPF HP CONVERSION Specimen Anatomical Collection Method Collection Time Receive d Time (Source) Location / / Volume Laterality 07/21/2013 8:32 AM 3 8:32 CDT AM CDT Narrative HP CONVERSION - 07/21/2013 9:38 AM CDT Performed at [facility], [address] [place] [address] Dirk Ruiz MD LAB_1 Performing Organization Address City/[facility]/ZIP Code Phon e Number HP CONVERSION Electrolyte Panel (07/21/2013 8:32 AM CDT) athologist Signature Sodium 145 137 - 147 HP CONVERSION mEq/L Potassium 5.1 3.5 - 5.2 HP CONVERSION mEq/L Chloride 108 98 - 110 HP CONVERSION mEq/L Bicarbonate 29 23 - 33 HP CONVERSION mmol/L Specimen Anatomical Collection Method Collection Time Receive d Time (Source) Location / / Volume Laterality 07/21/2013 8:32 AM 3 CDT 11:02 AM CDT Dirk Ruiz MD LAB_1 Performing Organization Address City/State/ZIP Code Phon e Number HP CONVERSION GLUCOSE (07/21/2013 8:32 AM CDT) ath[facility] Signature Lab Glucose 97 60 - 100 HP CONVERSION mg/dL Specimen Anatomical Collection Method Collection Time Receive d Time (Source) Location / / Volume Laterality 07/21/2013 8:32 AM 3 CDT 11:02 AM CDT Dirk Ruiz MD LAB_1 Performing Organization Address City/[facility]/ZIP Code Phon e Number HP CONVERSION AST (07/21/2013 8:32 AM CDT) [facility] Method Time Signature Aspartate 19 0 - 45 HP CONVERSION Aminotransferase U/L Specimen Anatomical Collection Method Collection Time Receive d Time (Source) Location / / Volume Laterality 07/21/2013 8:32 AM 3 CDT 11:02 AM CDT Dirk Ruiz MD LAB_1 Performing Organization Address City/[facility]/ZIP Code Phon e Number HP CONVERSION Creatinine / GFR (07/21/2013 8:32 AM CDT) athologist Signature Creatinine 0.8 0.4 [...] Time (Source) Location / / Volume Laterality 07/21/2013 8:32 AM 3 CDT 11:02 AM CDT Dirk Ruiz MD LAB_1 Performing Organization Address City/[facility]/ZIP Code Phon e Number HP CONVERSION (ABNORMAL) URINALYSIS ROUTINE(MICRO IF POS) (07/21/2013 8:32 AM CDT) [facility] Method Time Signature Urine Type Urine:clean HP CONVERSION cat Turbidity Sl Cloudy Clear HP CONVERSION (A) U BILI Negative Negative HP CONVERSION Blood Urine Trace (A) Negative HP CONVERSION Glucose, Negative Neg-30 HP CONVERSION Qualitative U mg/dL Ketones Negative Negative HP CONVERSION Leukocyte Negative Negative HP CONVERSION Esterase Urine Nitrite Urine Negative Negative HP CONVERSION pH Urine 5.5 5.0 - 8.0 HP CONVERSION Protein Urine Negative Neg - Trace HP CONVERSION mg/dL U Specific >=1.030 1.005 - HP CONVERSION [place] 1.030 Urobilinogen Negative Negative HP CONVERSION Urine Eu/dL Specimen Anatomical Collection Method Collection Time Receive d Time (Source) Location / / Volume Laterality Urine: 07/21/2013 8:32 AM 3 8:32 CDT AM CDT Narrative HP CONVERSION - 07/21/2013 9:38 AM CDT Performed at [facility], [address] [place] [address] Dirk Ruiz MD LAB_1 Performing Organization Address City/[facility] Phon e Number HP CONVERSION Lipid Panel and Direct LDL(If Needed) (07/21/2013 8:32 AM CDT) [facility] gist Method Time Signature Cholesterol 162 0 - 200 HP CONVERSION mg/dL Triglycerides 104 0 - 149 HP CONVERSION mg/dL HDL Cholesterol 48 >39 mg/dL HP CONVERSION Cholesterol/HDL 3.4 HP CONVERSION Ratio Screen LDL Calculated 93 19 - 130 HP CONVERSION mg/dL Length Of Fast 12.0 HP CONVERSION Specimen Anatomical Collection Method Collection Time Receive d Time (Source) Location / / Volume Laterality 07/21/2013 8:32 AM 3 CDT 11:02 AM CDT Dirk Ruiz MD LAB_1 Performing Organization Address City/[facility] Phon e Number HP CONVERSION documented in this encounter Visit Diagnoses Diagnosis Other and unspecified hyperlipidemia (HR C) Other and unspecified hyperlipidemia Routine general medical examination at a health care facility Unspecified essential hypertension (HRC) Unspecified essential hypertension documented in this encounter Care Teams Ordnance Keeper Relationship Specialty Start Date End Date Dirk Ruiz MD PCP - General 02/05/11 04/15/15 [address] [place] [address] documented as of this encounter
--- OUTSIDE RECORDS SUMMARY | 2022-08-15 14:56 | XMS_ITS | Encounter Summary ---
:1940 Author Organization [facility] Address [address] [place] [address] Care Team Providers Name Role Phone Dirk Ruiz MD Primary Care Provider Reason for Visit Reason Comments Procedure Encounter Details Date Type Department Care Team Description 07/26/2011 Procedure Visit [facility] [address] D[address] Procedure [address] [place], [place] [address] Social History Tobacco Use Types Packs/Day Years Used Date Smoking Tobacco: Never Assessed Sex Assigned at Date Recorded Not on file documented as of this encounter Progress Notes Dylon Townsend MD - 08/03/2011 10:07 AM CDT This office note has been dictated. Dylon Townsend MD - 08/03/2011 9:22 AM CDT Progress Notes signed by Dylon Townsend MD at 08/15/111727 Author: Dylon Townsend MD Service: (none) Author Type: Physician Filed: 08/15/111727 Note Time: 08/03/11921 Status: Signed Lung Splitter: Dylon Townsend MD (Physician) NAME: MICHELE PIZARRO I MR#: [id number] CSN: [id number] AUTHENTICATING CLINICIAN: Dylon Townsend MD CONFIRM #: [id number] LOC: 471 CLINIC DEXA REPORT DATE OF VISIT: 07/26/2011 : 1940 FINAL IMPRESSION: Bone density on Hologic Discovery W2. SUBJECTIVE: INTERPRETING PHYSICIAN: Dylon Townsend MD. OSTEOPOROSIS RISK FACTORS FROM PATIENT QUESTIONNAIRE: A 70-year-old female, menopause at age 60. She reports HRT usage until August 2003. Low vitamin D intake. Sister had a history of wrist fracture. 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 Note that scan requisition by different technologists on different densitometers limits precision. Compared with her last study November 12, 2002 measured BMD is stable to slightly improved. * The T-score = Standard Deviations Above/Below Mean Peak Adult The Z-score - Standard Deviations Above/Below Mean Age/Sex - Matched Peers. It is not available for patients over age 84. WHO DEFINITIONS: Normal BMD: T-score > 1.0 Osteopenia: T-score between -1.0 and -2.5 Osteoporosis: T-score < -2.5 ISCD STANDARDS: For a more accurate fracture risk assessment, reference data is used for all ethnic groups and the 1/3 region is reported for the forearm. ASSESSMENT: Normal BMD, which is above average for age. Future fracture risk does not appear to be increased. RECOMMENDATIONS: 1. See the osteoporosis guidelines in Facets for additional information regarding optimal calcium and vitamin D intake. 2. If her risk factors remain unchanged, consider a follow up DEXA in about 8 years. GSD:MEDQ C: CONFIRM #: [id number] documented in this encounter Miscellaneous Notes Letter - 07/26/2011 12:00 AM CDT Images from the original note were not included. [id number] [place] [address] [email or web address] August 03, 2011 Michele Pizarro [address] [facility] [address] Dear Michele, Your recent bone density test shows: ____ normal bone density ____ mild bone loss ____ moderate bone loss ____ osteoporosis Compared to your previous bone density test, your recent bone density test shows: ____ significant increase ____ mild increase ____ no significant change ____ mild decrease ____ significant decrease I recommend: ____ No change in your current therapy ____ Continue with adequate daily intake of calcium (4312-8990 mg) and of vitamin D (1000 IU) ____ Get regular weight-bearing exercise ____ You may want to consider another osteoporosis medication ____ Please make an appointment so we can discuss these results and possible treatment [phone] ____ Please call me at [phone] ____ We will repeat a bone density test in years ____ Comment: Please call my office at [phone] if you have questions. Sincerely, Dirk Ruiz [address] [place] [address] IN ANALYST documented in this encounter Plan of Treatment Not on filedocumented as of this encounter Visit Diagnoses Diagnosis Asymptomatic postmenopausal status (age- related) (natural) - Primary documented in this encounter Care Teams Content Assistant Relationship Specialty Start Date End Date Dikr Ruiz MD PCP - General 02/05/11 04/15/15 [address] [place] [address] documented as of this encounter
--- OUTSIDE RECORDS SUMMARY | 2022-08-15 14:56 | XMS_ITS | Encounter Summary ---
:1940 Author Organization [facility] Address [address] [place] [address] Care Team Providers Name Role Phone FabionilsonVeronica DO Primary Care Provider Encounter Details Date Type Department Care Team Description 04/19/2017 Lab Visit [facility] Hyperlipidemia, unspecified hyperlipidemia type; [address] [facility] [place] [address] Social History Tobacco Use Types [...] Diagnosis Comme nts LIPID PANEL AND Routine 04/19/2017 10:00 Hyperlipidemia, Resul ts for this DIRECT LDL(IF AM CDT unspecified procedure are in NEEDED) hyperlipidemia type the resu lts section. BASIC METABOLIC Routine 04/19/2017 10:00 Essential hypertensio n Results for this PANEL AM CDT procedure are i n the results section. documented in this encounter Results (ABNORMAL) Basic Metabolic Panel (04/19/2017 10:00 AM [...] - 04/19/2017 2:35 PM [place] [address] CLIA number [id number] Veronica Heredia DO LAB_1 Performing Organization Address City/State/ZIP Code Phon e Number PN SOFT [address] [place] [phone] (ABNORMAL) Lipid Panel and Direct LDL(If Needed) (04/19/2017 10:00 AM CDT) [facility] Method Time Signature Cholesterol 166 0 [...] - 04/19/2017 2:35 PM CDT Performed at [facility], [address] [facility] [place] [address] CLIA number [id number] Veronica Heredia DO LAB_1 Performing Organization Address City/State/ZIP Code Phon e Number PN SOFT [address] [place] [address] [phone] documented in this encounter Visit Diagnoses Diagnosis Hyperlipidemia, unspecified hyperlipidem ia type (HRC) Essential hypertension (HRC) Unspecified essential hypertension documented in this encounter Care Teams Patient Transport Orderly Relationship Specialty Start Date End Date Veronica Heredia DO PCP - General Family Practice 03/22/17 [address] [employer] [place] [address] documented as of this encounter
--- OUTSIDE RECORDS SUMMARY | 2022-08-15 14:56 | XMS_ITS | Encounter Summary ---
:1940 Author Organization [facility] Address [address] [place] [address] Care Team Providers Name Role Phone Unavailable Primary Care Provider Unavailable Reason for Visit Reason Comments MEDICATION CHECK Encounter Details Date Type Department Care Team Description 07/19/2015 Office Visit [facility], Unspecified e ssential hypertension (Primary Dx); Maico Bryant MD Need for influenza vaccination; [address] Vitamin D [address] [place] [address] [place], [place] [phone] [address] Social History Tobacco Use Types Packs/Day Years Used Date Smoking Tobacco: Never Assessed Sex Assigned at Date Recorded Not on file documented as of this encounter Last Filed Vital Signs Vital Sign Reading Time Taken Comments Blood Pressure 124/86 07/19/2015 7:57 AM CDT Pulse 60 07/19/2015 7:57 AM CDT Temperature 36.8 ??C (98.2 ??F) 07/19/2015 7:57 AM CDT Respiratory Rate - - Oxygen Saturation - - Inhaled Oxygen Concentration - - Weight 98.4 kg (217 lb) 07/19/2015 7:57 AM CDT Height 161.3 cm (5' 3.5) 07/19/2015 7:57 AM CDT Body Mass Index 37.84 07/19/2015 7:57 AM CDT documented in this encounter Patient Instructions Patient InstructionsAnnette Chavira - 07/19/2015 8:18 AM CDT This information is intended to inform and educate and is to be used in addition to the medical advice received from your healthcare professional Hypertension is also known as high blood pressure. It occurs when the blood pressing on the inside of your arteries (blood vessels) is higher than normal (systolic number is higher than 140, or when the diastolic number is higher than 90) Hypertension can cause serious health problems, even if you do not feel sick. It may make you more likely to have a stroke, heart attack, kidney problems, dementia or heart disease Residual risk for complications may continue to exist despite treatment or reaching diabetes care goals and TLC What you should do: If you take medication to control BP: make a routine to take your medicine at the same time and place each day. Contact me before you stop taking any of your medicines. Have your blood pressure checked often (take your medicine at least 30 minutes before checking your blood pressure). Therapeutic Lifestyle Changes (TLC) Avoid tobacco smoke exposure, Dietary recommendations The Mediterranean diet features foods eaten in [place], [place], southern [place], and other countries that border [...] lunch or dinner instead of red meat. [place] the fish with olive oil, and broil [...] cycling, or playing tennis or team sports. Exercise Staying physically FIT- is very important for your health .Use aerobics, strengthening and flexibility training. FIT: Frequency- 5 x per week (30 minutes) Intensity- moderate exercise Time- at least 1.5 h per week Weight loss Lose weight if needed- losing 5-10 % of your body weight can lower the BP Warning signs: Swelling in your ankles and feet Increase weakness or fatigue (tiredness) Dry cough Important: There are often no signs or symptoms of high blood pressure, even if it is dangerously high, so check your blood pressure often. When should you be seen again? If your blood pressure is over 180/110 return right away If you have trouble breathing, headache or dizziness, return right away. If blood pressure medicine causes side effects please call the clinic If we changed your medicine today or added a new one, return in two weeks. If your blood pressure is in control, return in 6 months. Call to get to the nearest hospital .Do not drive yourself if: You faint (pass out) or have a seizure (convulsion). You have chest pain. You have a new bad headache or trouble thinking clearly. You have numbness (loss of feeling) or weakness on one side of your body. You have new breathing problems. Thank you. documented in this encounter Progress Notes Annette Chavira - 07/19/2015 8:32 AM CDT Chief complain Chief Complaint Patient presents with ??? Medication Check fasting History of present illness: Michele Angulo 74 y.o. female presents with the following concerns regarding follow up HTN [place] [address] ui treatment and with cozaar 50 mg and atenolol BP 124/86 mmHg Pulse 60 Temp(Src) 98.3 ??F (36.8 ??C) (Oral) Ht 5' 3.5 (1.613 m) Wt 217 lb (98.431 kg) BMI 37.83 kg/m2 taking medications as instructed, no medication side effects noted, no TIAs, no chest pain on exertion, no dyspnea on exertion, no swelling of ankles, no orthostatic dizziness or lightheadedness, no orthopnea or paroxysmal nocturnal dyspnea, no palpitations, no intermittent claudication symptoms had started mediterranean diet and exercise regularly walks in AM and then gym Patient Active Problem List Diagnosis Date Noted ??? Postmenopausal 04/16/2015 ??? Aspirin long-term use 04/16/2015 ??? H/O colonoscopy 2007 due 2018 04/16/2015 ??? Vitamin D deficiency 04/16/2015 ??? BMI 35.0-35.9,adult 04/16/2015 ??? Obesity 04/30/2006 Class: Chronic ??? Gastroesophageal Reflux Disease 04/30/2006 Class: Chronic ??? Hyperlipidemia 07/12/2005 Class: Chronic ??? Hypertension 04/11/2003 Class: Chronic Past Medical History Diagnosis Date ??? Hypertension 04/11/2003 takes atenolol cozaar ??? Hyperlipidemia 07/12/2005 takes zocor ??? Postmenopausal 04/16/2015 resolved ??? Aspirin long-term use 04/16/2015 ASA therapy 75-162 mg/day is recommended for primary CVD prevention because patient -Is female 57 years who have at least one additional major risk factor such as: -HTN -Dyslipdemia ??? H/O colonoscopy 2007 due 201704/16/2015 Past Surgical History Procedure Laterality Date ??? Bunionectomy Current Outpatient Prescriptions Medication Sig Dispense Refill [...] IN THE P.M. 90 tablet 4 No current facility-administered medications for this visit. Allergies: Other; Penicillins; Review food intolerance; and Sulfa (sulfonamide antibiotics) History Substance Use Topics ??? Smoking status: Never Smoker ??? Smokeless tobacco: Not on file ??? Alcohol Use: Yes Comment: Alcoholic Drinks/day: 1-2 x per year Objective: BP 124/86 mmHg Pulse 60 Temp(Src) 98.3 ??F (36.8 ??C) (Oral) Ht 5' 3.5 (1.613 m) Wt 217 lb (98.431 kg) BMI 37.83 kg/m2 No LMP recorded. Patient is postmenopausal. Physical examination reveals: Patient is alert, awake and interactive, looking in no acute distress Heart: Auscultation reveals S1, S2, of normal intensity there are no S3, S4 rubs clicks or murmurs. Rhythm is regular. No carotids bruits Chest: full expansion is noted bilaterally. Breath sounds are normal. There are no rales or rhonchi or wheezing no edema LABS: see [facility] Assessment and Plan reviewed with patient Treatments options discussed Patient's questions answered Opinion: likely History and physical examination and labs are suggestive of most likely- Diagnosis (ICD9) and Associated Orders ICD-9-CM ICD-10-CM 1. Hypertension 401.9 I10 Basic Metabolic Panel 2. Need for influenza vaccination V04.81 Z23 Influenza High-Dose (65+ years) 3. Vitamin D deficiency 268.9 E55.9 Vitamin D (In house) continue with current management If patients' symptoms worsen with the initial treatment or do not improve an alternative management strategy will be implemented and if not better the specialist will be consulted MEDICATION PRESCRIBED: see EpicCare Call or return if symptoms fail to improve as anticipated or if getting worse Expected course of the disease discussed with the patient. Patient was informed about side effects.She reports none Patient has been asked to report any signs of serious problems immediately. The patient is aware of this, and accepts whatever degree of risk there is in this aspect. She understands and wishes to takethe medication as prescribed. Agreed Plan: The patient voices understanding and agreement with the plan of the treatment and follow-up in one year and prn documented in this encounter Plan of Treatment Not on filedocumented as of this encounter Visit Diagnoses Diagnosis Unspecified essential hypertension (HRC) - Primary Unspecified essential hypertension Need for influenza vaccination Need for prophylactic vaccination and in oculation against influenza Vitamin D deficiency (HRC) Unspecified vitamin D deficiency documented in this encounter
--- OUTSIDE RECORDS SUMMARY | 2022-08-15 14:56 | XMS_ITS | Encounter Summary ---
:1940 Author Organization [employer] Address [address] [place] [address] Care Team Providers Name Role Phone Dirk Ruiz MD Primary Care Provider Reason for Visit Reason Comments Annual Exam Encounter Details Date Type Department Care Team Description 07/19/2012 Office Visit Sawyer Hernandez Joseph, Sony adult ex am (Primary Dx); Medicine MD Dirk Unspecified essential hypertension; [address] [place] and unspecified hyperlipidemia; [address] Esophageal reflux; [place] [address] [place], [place] Need for influenza vaccinati on; [phone] Need for zoster vaccination Social History Tobacco Use Types Packs/Day Years Used Date Smoking Tobacco: Never Assessed Sex Assigned at Date Recorded Not on file documented as of this encounter Last Filed Vital Signs Vital Sign Reading Time Taken Comments Blood Pressure 186/89 07/19/2012 7:23 AM CDT Pulse 62 07/19/2012 7:23 AM CDT Temperature - - Respiratory Rate - - Oxygen Saturation - - Inhaled Oxygen Concentration - - Weight 98.4 kg (217 lb) 07/19/2012 7:23 AM CDT Height 163.8 cm (5' 4.5) 07/19/2012 7:23 AM CDT Body Mass Index 36.67 07/19/2012 7:23 AM CDT documented in this encounter Progress Notes Dirk Ruiz MD - 07/19/2012 12:59 PM CDT Progress Notes signed by Dirk Ruiz MD at 07/22/12 0803 Author: Dirk Ruiz MD Service: (none) Author Type: Physician Filed: 07/22/12 0803 Note Time: 07/19/12 1259 Status: Signed Hand Funnel Coater: Dirk Ruiz MD (Physician) NAME: MICHELE PIZARRO I MR#: [id number] CSN: [id number] AUTHENTICATING CLINICIAN: Dirk Ruiz MD CONFIRM #: [id number] LOC: 602 CLINIC PROGRESS NOTE DATE OF VISIT: 07/19/2012 : 1940 A 71-year-old. Michele is here for a complete physical. She wants a flu shot. She has elevated blood pressure, but she does not tolerate diuretics. She is currently on amlodipine 5 and Tenormin 50, Zocor 10 and Prinivil 20. Her shots are up to date. She will get a shingles vaccine today. Her mom had PCK,but her kidney evaluation in the past has been negative. Colonoscopy, DEXA, mammogram are all up to date; and her blood pressure was 186/89, repeat was 172/88. At home, she is averaging about 136/80. She will continue to monitor that. She is having some issues with the Norvasc after discussion; and therefore, we will switch her to Cozaar, but she is first going to try taking her Prinivil in the morning. She is taking it at night and she is going to work on her weight. She is 5 feet 4-1/2 inches, weighs 217. COMPLETE REVIEW OF SYSTEMS: Negative otherwise. She feels well. ALLERGIES: Allergic to penicillin, sulfa and IVP dye. HEENT: Negative. NECK: Supple, thyroid normal. LUNGS: Clear. HEART: Regular without murmur. BREASTS: Without masses. No axillary or cervical adenopathy. Reviewed her mammogram. ABDOMEN: Benign. EXTREMITIES: No CCE. DTRs symmetric. Cranial nerves intact. Balance testing normal. She has been exercising more. ASSESSMENT: Physical, age 71. In addition, counseling 15 minutes on hypertension, overweight. Add Cozaar. DC Norvasc. Monitor blood pressure more closely and I will contact her with the labs. Flu shot and Zostavax today discussed. CC:MEDQ C: CONFIRM #: [id number] documented in this encounter Plan of Treatment Not on filedocumented as of this encounter Visit Diagnoses Diagnosis Well adult exam - Primary Routine general medical examination at a health care facility Unspecified essential hypertension (HRC) Unspecified essential hypertension Other and unspecified hyperlipidemia (HR C) Other and unspecified hyperlipidemia Esophageal reflux Need for influenza vaccination Need for prophylactic vaccination and in oculation against influenza Need for zoster vaccination Need for prophylactic vaccination and in oculation against varicella documented in this encounter Care Teams Senior Market Intelligence Consultant Relationship Specialty Start Date End Date Dirk Ruiz MD PCP - General 02/05/11 04/15/15 [address] [place] [address] documented as of this encounter
--- OUTSIDE RECORDS SUMMARY | 2022-08-15 14:56 | XMS_ITS | Encounter Summary ---
:1940 Author Organization [facility] Address [address] [place] [address] Care Team Providers Name Role Phone Unavailable Primary Care Provider Unavailable Reason for Visit Reason Comments HYPERTENSION Encounter Details Date Type Department Care Team Description 04/30/2015 Nursing Visit Sawyer Family NurseJa Unspecifi ed essential Medicine hypertension (Primary [address] ) [place] [address] Social History Tobacco Use Types Packs/Day Years Used Date Smoking Tobacco: Never Assessed Sex Assigned at Date Recorded Not on file documented as of this encounter Last Filed Vital Signs Vital Sign Reading Time Taken Comments Blood Pressure 140/87 04/30/2015 9:08 AM CDT Pulse 67 04/30/2015 9:08 AM CDT Temperature - - Respiratory Rate - - Oxygen Saturation - - Inhaled Oxygen Concentration - - Weight - - Height - - Body Mass Index - - documented in this encounter Progress Notes Annette Chavira - 05/03/2015 7:55 AM CDT BP 140/87 Pulse 67 is at goal, her goal is to keep BP under 150/90 continue with current management documented in this encounter Plan of Treatment Not on filedocumented as of this encounter Visit Diagnoses Diagnosis Unspecified essential hypertension (HRC) - Primary Unspecified essential hypertension documented in this encounter
--- OUTSIDE RECORDS SUMMARY | 2022-08-15 14:56 | XMS_ITS | Encounter Summary ---
:1940 Author Organization [facility] Address [address] [place] [address] Care Team Providers Name Role Phone Dirk Ruiz MD Primary Care Provider Encounter Details Date Type Department Care Team Description 07/19/2012 Notes/Orders [facility] [address] Joseph, Alanis scr eening mammogram; Mammography MD Dirk Other (abnormal) findings on radiologica l examination of breast [address] [facility] [address] [place] [place] [address] [phone] Social History Tobacco Use Types Packs/Day Years Used Date Smoking Tobacco: Never Assessed Sex Assigned at Date Recorded Not on file documented as of this encounter Plan of Treatment Not on filedocumented as of this encounter Procedures Procedure Name Priority Date/Time Associated Diagnosis Comme nts MM MAMMOGRAM DIAG Routine 07/24/2012 2:19 PM Other (abnormal) Results for this DIGITAL UNILAT CDT findings on procedure are in (XVWS) radiological the results examination of breast sectio n. MM MAMMOGRAM Routine 07/22/2012 3:38 PM Other screening Result s for this SCREENING BILAT W CDT mammogram procedure are in CAD the results section. documented in this encounter Results MM Mammogram Diag Digital Unilat (Xvws) (07/24/2012 2:19 PM CDT) Anatomical Region Laterality Modality Breast Mammography Specimen (Source) Anatomical Location Collection Method / Collectio n Time Received Time / Laterality Volume Narrative 07/24/2012 2:42 PM CDT HISTORY: A small focal asymmetric densit y was seen medially in the right breast on 07/22/2012 screening kermit mogram. ??Spot compression in the cc and ??rolled medial and lateral c c projections ??today show that the focal density disappears. ??This rep resented a summation density on the screening mammogram. ??There is n o evidence of malignancy. Recommend return to yearly screening kermit mograms. ??ACR-BIRADS CATEGORY 1: ??Negative. Procedure Note Manpreet Zimmerman Nick - 06/28/2016Formattin g of this note might be different from the original. HISTORY: A small focal asymmetric densit y was seen medially in the right breast on 07/22/2012 screening kermit mogram. Spot compression in the cc and rolled medial and lateral cc projections today show that the focal density disappears. This repre sented a summation density on the screening mammogram. There is no evidence of malignancy. Recommend return to yearly screening kermit mograms. ACR-BIRADS CATEGORY 1: Negative. Dirk Ruiz MD RAD KERMIT (ABNORMAL) MM Mammogram Screening Bilat W CAD (07/22/2012 3:38 PM CDT) Anatomical Region Laterality Modality Breast Bilateral Mammography Specimen (Source) Anatomical Location Collection Method / Collectio n Time Received Time / Laterality Volume Impressions 07/23/2012 9:47 AM CDT IMPRESSION: RIGHT BREAST: Questioned architectural d istortion at a middle depth. Additional projections, rolled views and spot compression are recommended at this time. LEFT BREAST: Negative, no evidence of ma lignancy. Normal interval follow-up is recommended in 12 months. OVERALL ASSESSMENT - CATEGORY 0 - INCOMP LETE: NEED ADDITIONAL IMAGING EVALUATION END OF IMPRESSION BJ Narrative 07/23/2012 9:47 AM CDT Comparison is made to films from 011 (bilateral) and films from 06/18/2008 (bilateral). Right Breast Findings: The breast is heterogeneously dense (51% - 75% fibroglandular). This may lower the sensitivity of mammography . Questioned area of architectural distortion is present at a middle depth and is seen only in the Right craniocaudal projectio n medially. Left Breast Findings: The breast is heterogeneously dense (51% - 75% fibroglandular). This may lower the sensitivity of mammography . No significant masses, calcifications or other abnormalities ar e seen. Procedure Note Shanice Villalobos MD - 06/28/2016Formatt ing of this note might be different from the original. Comparison is made to films from 011 (bilateral) and films from 06/18/2008 (bilateral). Right Breast Findings: The breast is heterogeneously dense (51% - 75% fibroglandular). This may lower the sensitivity of mammography . Questioned area of architectural distortion is present at a middle depth and is seen only in the Right craniocaudal projectio n medially. Left Breast Findings: The breast is heterogeneously dense (51% - 75% fibroglandular). This may lower the sensitivity of mammography . No significant masses, calcifications or other abnormalities ar e seen. IMPRESSION IMPRESSION: RIGHT BREAST: Questioned architectural d istortion at a middle depth. Additional projections, rolled views and spot compression are recommended at this time. LEFT BREAST: Negative, no evidence of ma lignancy. Normal interval follow-up is recommended in 12 months. OVERALL ASSESSMENT - CATEGORY 0 - INCOMP LETE: NEED ADDITIONAL IMAGING EVALUATION END OF IMPRESSION BJ Dirk Ruiz MD RAD KERMIT documented in this encounter Visit Diagnoses Diagnosis Other screening mammogram Other (abnormal) findings on radiologica l examination of breast documented in this encounter Care Teams Construction Engineering Manager Relationship Specialty Start Date End Date Dirk Ruiz MD PCP - General 02/05/11 04/15/15 [address] [place] [address] documented as of this encounter
--- OUTSIDE RECORDS SUMMARY | 2022-08-15 14:56 | XMS_ITS | Encounter Summary ---
:1940 Author Organization [email or web address] Address [address] [facility] [place] [address] Care Team Providers Name Role Phone Annette Chavira MD Primary Care Provider Reason for Visit Reason Comments Annual Exam Encounter Details Date Type Department Care Team Description 04/16/2015 Office Visit Sawyer Chavira, Annual physic al exam (Primary Dx); Medicine MD Annette Establishing care with new doctor, danita nt for; [address] [facility] [address] [place] Unspeci fied essential hypertension; [address] Other and unspecified hyperlipidemia; [place] [address] [place], [place] Aspirin long-term use; [phone] Postmenopausal; [phone] Encounter for b reast cancer screening other than mammogram; (Work) Screening for diabetes mellitus; [phone] Skin cancer scr eening; (Fax) Screening for c olon cancer; Vitamin D defic iency; Need for Strept ococcus pneumoniae vaccination; H/O colonoscopy ; BMI 35.0-35.9,a dult Social History Tobacco Use Types Packs/Day Years Used Date Smoking Tobacco: Never Assessed Sex Assigned at Date Recorded Not on file documented as of this encounter Last Filed Vital Signs Vital Sign Reading Time Taken Comments Blood Pressure 136/98 04/16/2015 7:59 AM CDT Pulse 72 04/16/2015 7:59 AM CDT Temperature 36.9 ??C (98.4 ??F) 04/16/2015 7:59 AM CDT Respiratory Rate - - Oxygen Saturation - - Inhaled Oxygen Concentration - - Weight 97.5 kg (215 lb) 04/16/2015 7:59 AM CDT Height 161.3 cm (5' 3.5) 04/16/2015 7:59 AM CDT Body Mass Index 37.49 04/16/2015 7:59 AM CDT documented in this encounter Patient Instructions Patient InstructionsAnnette Chavira - 04/16/2015 8:36 AM CDT This information is intended to inform and educate and is to be used in addition to the medical advice received from your healthcare professional. Stop lisinopril Take cozaar new prescription is for 50 mg Do labs and BP check with us in 2 weeks Get regular checkups Eye exams annually after [...] features foods eaten in [place], [place], [place], and other countries that border [...] lunch or dinner instead of red meat. [place] the fish with olive oil, and broil [...] this encounter Progress Notes Annette Chavira - 04/16/2015 9:02 AM CDT Chief complain: Chief Complaint Patient presents with ??? Annual Exam fasting, reports lower back pain in the mornings that goes away, occasional heartburn History of present illness Michele Angulo 74 y.o. 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 No dyspnea or chest pain on exertion. No depression or anxiety . No abdominal pain, change in bowel habits, black or bloody stools. No urinary tract symptoms . 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 H/O colonoscopy 2007 due 201704/16/2015 ??? Obesity 04/30/2006 Class: Chronic ??? Gastroesophageal [...] as: -HTN -Dyslipdemia ??? H/O colonoscopy 200704/16/2015 Past Surgical History Procedure Laterality Date ??? Bunionectomy Current Outpatient Prescriptions on File Prior to Visit Medication Sig Dispense Refill ??? aspirin EC 81 mg EC tablet Take 1 tablet by mouth daily (every 24 hours). 13 ??? [DISCONTINUED] atenolol (TENORMIN) 50 mg tablet Take 1 tablet by mouth daily (every 24 hours). 90 tablet 4 ??? [DISCONTINUED] Calcium-Cholecalciferol, D3, (CALTRATE-600 PLUS VITAMIN D3) 600-400 mg-unit Tab ??? [DISCONTINUED] lisinopril (PRINIVIL, ZESTRIL) 20 mg tablet Take 1 tablet by mouth daily (every 24 hours). 90 tablet 4 ??? [DISCONTINUED] losartan (COZAAR) 25 mg tablet Take 1 tablet by mouth daily (every 24 hours). 90 tablet 4 ??? [DISCONTINUED] simvastatin (ZOCOR) 10 mg tablet TAKE ONE TABLET BY MOUTH ONE TIME DAILY IN THE P.M. 90 tablet 4 ??? [DISCONTINUED] valACYclovir (VALTREX) 1 g tablet Take 1 tablet by mouth 3 times daily. 21 tablet0 No current facility-administered medications on file prior to visit. Allergies: Other; Penicillins; Review food intolerance; and Sulfa (sulfonamide antibiotics) History Substance Use Topics ??? Smoking status: Never Smoker ??? Smokeless tobacco: Not on file ??? Alcohol Use: Yes Comment: Alcoholic Drinks/day: 1-2 x per year Family History Problem Relation Age of Onset ??? Arthritis Mother ??? Cancer Mother liver ??? Arthritis Father ??? Kidney Disease Father ??? Arthritis Sister ??? Depression Sister ??? High Blood Pressure Sister ??? Anxiety Disorder Sister ??? Cancer, Breast Neg Hx ??? Cancer, Ovarian Neg Hx ??? Heart Failure Paternal Grandfather ??? Heart Failure Maternal Grandfather Immunization History Administered Date(s) Administered ??? FLUARIX INFLUENZA QIV (36+ MOS) 07/21/2013 ??? Influenza TIV (36+ mos) 07/17/2011 ??? Influenza TIV 0.5ml (36+ mos) 07/13/2009, 07/14/2010, 07/19/2012 ??? PCV13 04/16/2015 ??? Pneumococcal vaccine (pneumovax) 07/14/2010 ? ? Td Adult (>7 years) 07/20/1999, 07/13/2009 ??? Zoster 07/19/2012 Physical examination BP 136/98 Pulse 72 Temp(Src) 98.4 ??F (36.9 ??C) (Oral) Ht 5' 3.5 (1.613 m) Wt 215 lb (97.523 kg) BMI 37.48 kg/m2 No LMP recorded. Patient is postmenopausal. Patient is alert, awake interactive and seems to be in no acute distress Skin: The skin is warm and dry: color is normal. There is no icterus, purpura, rash, or unusual pigmentation noted. Hair is normal in appearance, distribution, and texture. Lymph nodes : there is no cervical, [...] no carotid bruits. Rhythm is regular. Abdomen ;Auscultation reveals normal active bowel sounds and no abdominal bruits. Palpation reveals no abnormal tenderness, guarding or masses or guarding or rebound tenderness. The spleen is not palpable and no organomegaly noted Breast: breasts are [...] and fruit Exercise -patient admits to that exercises-Goes to [employer] 5 x per week and does lost of walking Weight control- patient denies weight changes Skin cancer prevention- patient admits to that uses sun block (SPF>15) Depression/anxiety screening-negative Violence/abuse screening -negative [facility] Assessment and Plan reviewed with patient Patient's questions answered Diagnosis (ICD9) and Associated Orders ICD-9-CM ICD-10-CM 1. Annual physical exam V70.0 Z00.00 2. Establishing care with new doctor, encounter for V65.8 Z71.89 3. Hypertension 401.9 I10 Basic Metabolic Panel atenolol (TENORMIN) 50 mg tablet lisinopril (PRINIVIL, ZESTRIL) 20 mg tablet losartan (COZAAR) 25 mg tablet losartan (COZAAR) 50 mg tablet TSH And Free T4 (FRT4 If TSH Abnorm) Complete Blood Count W/Diff 4. Hyperlipidemia 272.4 E78.5 Cholesterol Fraction-LDLD If Trig High simvastatin (ZOCOR) 10 mg tablet 5. Aspirin long-term use V58.66 Z79.82 6. Postmenopausal V49.81 Z78.0 7. Encounter for breast cancer screening other than mammogram V76.10 Z12.39 8. Screening for diabetes mellitus V77.1 Z13.1 9. Skin cancer screening V76.43 Z12.83 10. Screening for colon cancer V76.51 Z12.11 11. Vitamin D deficiency (ACG) 268.9 E55.9 Vitamin D (In house) 12. Need for Streptococcus pneumoniae vaccination V03.82 Z23 PCV13 (Prevnar) asa pro cons discussed HTN management discussed as above Periodic health maintenance examination Life style recomendations: [...] time if any concerns [facility]ations [facility] time 15 min on HTN management documented in this encounter Plan of Treatment Not on filedocumented as of this encounter Visit Diagnoses Diagnosis Annual physical exam - Primary Routine general medical examination at a health care facility Establishing care with new doctordanita nter for Unspecified essential hypertension (HRC) Unspecified essential hypertension Other and unspecified hyperlipidemia (HR C) Other and unspecified hyperlipidemia Aspirin long-term use Encounter for long-term (current) use of aspirin Postmenopausal Asymptomatic postmenopausal status (age- related) (natural) Encounter for breast cancer screening ot her than mammogram Screening for diabetes mellitus Skin cancer screening Screening for malignant neoplasm of the skin Screening for colon cancer Special screening for malignant neoplasm s, colon Vitamin D deficiency (HRC) Unspecified vitamin D deficiency Need for Streptococcus pneumoniae vaccin ation H/O colonoscopy Other postprocedural status BMI 35.0-35.9,adult Body Mass Index 35.0-35.9, adult documented in this encounter Care Teams Floral Associate Relationship Specialty Start Date End Date Annette Chavira MD PCP - General 04/16/15 04/16/[address] [place] [address] [place] [address] documented as of this encounter
--- OUTSIDE RECORDS SUMMARY | 2022-08-15 14:56 | XMS_ITS | Encounter Summary ---
:1940 Author Organization [facility] [facility] Address [address] [facility] [place] [address] Care Team Providers Name Role Phone Dirk Ruiz MD Primary Care Provider Encounter Details Date Type Department Care Team Description 04/15/2014 Lab Visit [facility] Other and unspecified hyperl ipidemia; [address] [facility] Sc[facility] eening for other and unspecified endocrine, nutritional, metabolic, and immunity disorders; Drive Screening for diabetes heriberto ramirez; [place] [address] Unspecified essential hypert ension [phone] Social History Tobacco Use Types Packs/Day Years Used Date Smoking Tobacco: Never Assessed Sex Assigned at Date Recorded Not on file documented as of this encounter Plan of Treatment Not on filedocumented as of this encounter Procedures Procedure Name Priority Date/Time Associated Diagnosis Comme nts GLUCOSE Routine 04/15/2014 8:55 Screening for diabetes Re sults for this AM CDT mellitus procedure are i n the results section. TSH AND FREE T4 Routine 04/15/2014 8:55 Screening for other Re sults for this (FRT4 IF TSH ABNORM) AM CDT and unspecified proc edure are in endocrine, the results nutritional, section. metabolic, and immunity disorders LIPID PANEL AND Routine 04/15/2014 8:55 Other and unspecified Results for this DIRECT LDL(IF AM CDT hyperlipidemia (HRC) proced ure are in NEEDED) the results section. VITAMIN D Routine 04/15/2014 8:55 Screening for other Resul ts for this 25-HYDROXY, TOTAL AM CDT and unspecified procedu re are in endocrine, the results nutritional, section. metabolic, and immunity disorders CREATININE / GFR Routine 04/15/2014 8:55 Unspecified essential Results for this AM CDT hypertension (HRC) procedure are in the results section. ELECTROLYTE PANEL Routine 04/15/2014 8:55 Unspecified essentia l Results for this AM CDT hypertension (HRC) procedure are in the results section. ALT (SGPT) Routine 04/15/2014 8:55 Other and unspecified Res ults for this AM CDT hyperlipidemia (HRC) procedu re are in the results section. documented in this encounter Results Creatinine / GFR (04/15/2014 8:55 AM CDT) athologist Signature Creatinine 0.8 0.4 - 1.3 HP CONVERSION Serum mg/dL Est GFR >60 >60 HP CONVERSION Am Est GFR Non-Afr >60 >60 HP CONVERSION Am Comment: Normal>60, moderate decrease 30 - 59, se rosalinda decrease 15 - 29, renal failure <15 mL/min/1.73 m2 NOTE: ??Choose the eGFR result above alissa ropriate for the race of the patient. Specimen Anatomical Collection Method Collection Time Receive d Time (Source) Location / / Volume Laterality 04/15/2014 8:55 AM 4 CDT 12:00 PM CDT Alexander Joel MD LAB_1 Performing Organization Address City/State/ZIP Code Phon e Number HP CONVERSION Electrolyte Panel (04/15/2014 8:55 AM CDT) athologist Signature Sodium 146 137 - 147 HP CONVERSION Potassium 4.7 3.5 - 5.2 HP CONVERSION Chloride 106 98 - 110 HP CONVERSION Bicarbonate 28 23 - 33 HP CONVERSION mmol/L Specimen Anatomical Collection Method Collection Time Receive d Time (Source) Location / / Volume Laterality 04/15/2014 8:55 AM 4 CDT 12:00 PM CDT Alexander Joel MD LAB_1 Performing Organization Address City/State/ZIP Code Phon e Number HP CONVERSION ALT (SGPT) (04/15/2014 8:55 AM CDT) [facility] gist Method Time Signature Alanine 15 4 - 55 HP CONVERSION Aminotransferase U/L Specimen Anatomical Collection Method Collection Time Receive d Time (Source) Location / / Volume Laterality 04/15/2014 8:55 AM 4 CDT 12:00 PM CDT Alexander Joel MD LAB_1 Performing Organization Address City/State/ZIP Code Phon e Number HP CONVERSION (ABNORMAL) Vitamin D 25-Hydroxy, Total (04/15/2014 8:55 AM CDT) athologist Signature Vitamin D 25 19 (L) 20 - 80 HP CONVERSION Oh ng/mL Comment: Deficiency = <20 Adequate ??= 20-29 Preferred = 30-50 Uncertain safety = 51-80 High = >80 Specimen Anatomical Collection Method Collection Time Receive d Time (Source) Location / / Volume Laterality 04/15/2014 8:55 AM 4 CDT 12:02 PM CDT Alexander Joel MD LAB_1 Performing Organization Address City/[facility]/ZIP Code Phon e Number HP CONVERSION GLUCOSE (04/15/2014 8:55 AM CDT) athologist Signature Lab Glucose 93 60 - 100 HP CONVERSION mg/dL Specimen Anatomical Collection Method Collection Time Receive d Time (Source) Location / / Volume Laterality 04/15/2014 8:55 AM 4 CDT 12:00 PM CDT Alexander Joel MD LAB_1 Performing Organization Address City/[facility]/ZIP Code Phon e Number HP CONVERSION TSH AND FREE T4 (FRT4 IF TSH ABNORM) (04/15/2014 8:55 AM CDT) athologist Signature Thyroid 3.06 0.20 - HP CONVERSION Stimulating 4.50 Hormone Specimen Anatomical Collection Method Collection Time Receive d Time (Source) Location / / Volume Laterality 04/15/2014 8:55 AM 4 CDT 12:00 PM CDT Alexander Joel MD LAB_1 Performing Organization Address City/State/ZIP Code Phon e Number HP CONVERSION Lipid Panel and Direct LDL(If Needed) (04/15/2014 8:55 AM CDT) [facility] gist Method Time Signature Cholesterol 150 0 - 200 HP CONVERSION mg/dL Triglycerides 124 0 - 149 HP CONVERSION mg/dL HDL Cholesterol 45 >39 mg/dL HP CONVERSION Cholesterol/HDL 3.3 HP CONVERSION Ratio Screen LDL Calculated 80 19 - 130 HP CONVERSION mg/dL Length Of Fast 11.0 HP CONVERSION Specimen Anatomical Collection Method Collection Time Receive d Time (Source) Location / / Volume Laterality 04/15/2014 8:55 AM 4 CDT 12:00 PM CDT Alexander Joel MD LAB_1 Performing Organization Address City/State/ZIP Code Phon e Number HP CONVERSION documented in this encounter Visit Diagnoses Diagnosis Other and unspecified hyperlipidemia (HR C) Other and unspecified hyperlipidemia Screening for other and unspecified endo crine, nutritional, metabolic, and immunity disorders Screening for diabetes mellitus Unspecified essential hypertension (HRC) Unspecified essential hypertension documented in this encounter Care Teams Statistician Theoretical Relationship Specialty Start Date End Date Dirk Ruiz MD PCP - General 02/05/11 04/15/15 [address] [place] [address] documented as of this encounter
--- OUTSIDE RECORDS SUMMARY | 2022-08-15 14:56 | XMS_ITS | Encounter Summary ---
:1940 Author Organization [facility] Address [address] [place] [address] Care Team Providers Name Role Phone Dirk Ruiz MD Primary Care Provider Reason for Visit Reason Comments Appt. Needed Encounter Details Date Type Department Care Team Description 05/29/2013 Telephone [facility] Dirk Sanchez MD Appt. Needed [address] [facility] [address] [place] [address] [place] [address] [phone] Social History Tobacco Use Types Packs/Day Years Used Date Smoking Tobacco: Never Assessed Sex Assigned at Date Recorded Not on file documented as of this encounter Nursing Notes Crystal Calvo - 05/29/2013 11:21 AM CDT left message for pt to come in for a nurse visit regarding elevated BP. documented in this encounter Plan of Treatment Not on filedocumented as of this encounter Visit Diagnoses Not on filedocumented in this encounter Care Teams Gang Pusher Relationship Specialty Start Date End Date Dirk Ruiz MD PCP - General 02/05/11 04/15/15 [address] [place] [address] documented as of this encounter
--- OUTSIDE RECORDS SUMMARY | 2022-08-15 14:56 | XMS_ITS | Encounter Summary ---
:1940 Author Organization [facility] Address [address] [place] [address] Care Team Providers Name Role Phone Dirk Ruiz MD Primary Care Provider Reason for Visit Reason Comments SHOULDER PAIN Encounter Details Date Type Department Care Team Description 06/20/2013 Hospital Encounter [facility] Mike Mcclellan MD Neuralgia (Primary [id number] [facility]) [place] [address] [phone] Social History Tobacco Use Types Packs/Day Years Used Date Smoking Tobacco: Never Assessed Sex Assigned at Date Recorded Not on file documented as of this encounter Last Filed Vital Signs Vital Sign Reading Time Taken Comments Blood Pressure 186/103 06/20/2013 12:29 PM CDT Pulse 80 06/20/2013 12:29 PM CDT Temperature 36.1 ??C (97 ??F) 06/20/2013 12:29 PM CDT Respiratory Rate 16 06/20/2013 12:29 PM CDT Oxygen Saturation - - Inhaled Oxygen Concentration - - Weight - - Height - - Body Mass Index - - documented in this encounter Medications at Time of Discharge Medication Sig Dispensed Refills Start Date End Date calcium Indications: PN: 0 07/10/2008 04/16/20 15 carb-cholecalciferol (CALTRATE 600+D) 600-800 MG-UNIT tablet losartan (AKA COZAAR) 25 MG Take 1 tablet by 90 tablet 4 04/15/2014 tablet mouth daily (every 24 hours). simvastatin (AKA ZOCOR) 10 Take 1 tablet by 90 tablet 3 07/12/2013 MG tabletIndications: Other mouth every and unspecified evening. hyperlipidemia (HRC) valACYclovir (aka VALTREX) Take 1 tablet by 21 tablet 0 04/16/2015 tablet mouth 3 times daily. aspirin EC 81 MG enteric Take 1 tablet by 13 07/1007/29/2018 coated tablet mouth daily (every 24 hours). ATENolol (AKA TENORMIN) 50 Take 1 tablet by 90 tablet 3 07/21/2013 MG tabletIndications: mouth daily (every Unspecified essential 24 hours). hypertension (HRC) lisinopril (AKA ZESTRIL) 20 Take 1 tablet by 90 tablet 3 07/21/2013 MG tabletIndications: mouth daily (every Unspecified essential 24 hours). hypertension (HRC) documented as of this encounter Progress Notes Mike Mcclellan MD - 06/20/2013 1:29 PM CDTEncounter addended by: Mike Mcclellan MD on: 06/26/2013 12:30 PM
Documentation filed: Charges VN documented in this encounter ED Notes Mike Mcclellan MD - 06/20/2013 1:29 PM CDT Subjective: Patient ID: Michele Angulo is an 72 y.o. female. Chief Complaint: Patient is a 72 y.o. female presenting with shoulder pain. The history is provided by the patient. Shoulder Pain This is a new problem. The current episode started yesterday. The problem has not changed since onset.Pertinent negatives include no chest pain, no abdominal pain, no headaches and no shortness of breath. Nothing aggravates the symptoms. Nothing relieves the symptoms. Treatments tried: aleve. The treatment provided moderate relief. Review of Systems Constitutional: Negative. Respiratory: Negative for cough and shortness of breath. Cardiovascular: Negative for chest pain. Gastrointestinal: Negative for nausea, vomiting and abdominal pain. Skin: Negative. Neurological: Negative for headaches. No current facility-administered medications on file prior to encounter. Current Outpatient Prescriptions on File Prior to Encounter Medication Sig Dispense Refill ??? aspirin EC 81 mg EC tablet Take 1 tablet by mouth daily (every 24 hours). 13 ??? atenolol (TENORMIN) 50 mg tablet Take 1 tablet by mouth daily (every 24 hours). 90 tablet 3 ??? Calcium-Cholecalciferol, D3, (CALTRATE-600 PLUS VITAMIN D3) 600-400 mg-unit Tab ??? lisinopril (PRINIVIL, ZESTRIL) 20 mg tablet Take 1 tablet by mouth daily (every 24 hours). 90 tablet 3 ??? losartan (COZAAR) 25 mg tablet Take 1 tablet by mouth daily (every 24 hours). 90 tablet 4 ??? simvastatin (ZOCOR) 10 mg tablet Take 1 tablet by mouth every evening. 90 tablet 3 ??? valACYclovir (VALTREX) 1 g tablet Take 1 tablet by mouth 3 times daily. 21 tablet 0 History reviewed. No pertinent past medical history. History reviewed. No pertinent past surgical history. History Social History ??? Marital Status: Single Spouse Name: N/A Number of Children: N/A ??? Years of Education: N/A Occupational History ??? Not on file. Social History Main Topics ??? Smoking status: Never Smoker ??? Smokeless tobacco: Not on file ??? Alcohol Use: Yes Alcoholic Drinks/day: Amount:1-2 drinks; Freq:=< Monthly; ??? Drug Use: ??? Sexually Active: Other Topics Concern ??? Not on file Social History Narrative ??? No narrative on file Immunization History Administered Date(s) Administered ??? Influenza TIV (36+ mos) 07/17/2011 ??? Influenza TIV 0.5ml (36+ mos) 07/13/2009, 07/14/2010, 07/19/2012 ??? Pneumococcal vaccine (pneumovax) 07/14/2010 ? ? Td Adult (>7 years) 07/20/1999, 07/13/2009 ??? Zoster 07/19/2012 History reviewed. No pertinent family history. Objective: BP 186/103 Pulse 80 Temp(Src) 36.1 ??C (97 ??F) (Oral) Resp 16 Physical Exam Nursing note and vitals reviewed. Constitutional: She is oriented to person, place, and time. She appears well- developed and well-nourished. HENT: Head: Normocephalic and atraumatic. Eyes: Conjunctivae and EOM are normal. Pulmonary/Chest: Effort normal. Musculoskeletal: Normal range of motion. Right shoulder: Normal. Neurological: She is alert and oriented to person, place, and time. Skin: No rash noted. Psychiatric: She has a normal mood and affect. Her behavior is normal. Judgment normal. Procedures none Assessment: The encounter diagnosis was Neuralgia. MDM Plan: With her her pain being a burning sensitive skin type pain I do question if this is early shingles. There is not any rash currently and she has had a zoster vaccine in the past couple of years. I did suggest that she continue with her prn Aleve and see if a rash develops. If it does she was given valtrex to start. I don't think that this is cardiac related nor related to a gallbladder or pulmonary issue based on hx and examination. She agreed to plan and will f/u if not getting better. Mike Mcclellan MD 10:45 PM 06/20/2013 documented in this encounter Miscellaneous Notes Medication History - Capo Nazario MD - 06/20/2013 1:29 PM CDT INPATIENT MEDS Encounter Date: 06/20/13 valACYclovir (VALTREX) 1 g tablet Start Date:06/20/13, End Date:04/16/15, Frequency:3 TIMES DAILY *No Administrations Recorded documented in this encounter Plan of Treatment Not on filedocumented as of this encounter Visit Diagnoses Diagnosis Neuralgia - Primary Neuralgia, neuritis, and radiculitis, un specified Triage Assessment Note - Janey Moffett RN - 06/20/2013 12:28 PM CDT Has shoulder pain on the right side. Starts with a stinging sensation' and turns into pain. Symptoms are intermittent. documented in this encounter Care Teams Managed Care Coordinator Relationship Specialty Start Date End Date Dirk Ruiz MD PCP - General 02/05/11 04/15/15 [address] [place] [address] documented as of this encounter
--- OUTSIDE RECORDS SUMMARY | 2022-08-15 14:56 | XMS_ITS | Encounter Summary ---
:1940 Author Organization [facility] Address [address] [place] [address] Care Team Providers Name Role Phone Dirk Ruiz MD Primary Care Provider Reason for Visit Reason Comments Annual Exam Encounter Details Date Type Department Care Team Description 04/15/2014 Office Visit Alexander Browning Well a dult exam (Primary Dx); Medicine MD Caitlin Unspecified essential hypertension; [address] [facility] [address] [facility] Other and unspecified hyperlipidemia; [place], [place] Screening for diabetes heriberto tus; [place] [phone] Screening for other and unspecified endo crine, nutritional, metabolic, and immunity disorders [phone] (Wo rk) Social History Tobacco Use Types Packs/Day Years Used Date Smoking Tobacco: Never Assessed Sex Assigned at Date Recorded Not on file documented as of this encounter Last Filed Vital Signs Vital Sign Reading Time Taken Comments Blood Pressure 151/77 04/15/2014 8:06 AM CDT Pulse 64 04/15/2014 7:59 AM CDT Temperature - - Respiratory Rate - - Oxygen Saturation - - Inhaled Oxygen Concentration - - Weight 96.2 kg (212 lb) 04/15/2014 7:59 AM CDT Height 162.6 cm (5' 4) 04/15/2014 7:59 AM CDT Body Mass Index 36.39 04/15/2014 7:59 AM CDT documented in this encounter Patient Instructions Patient InstructionsHiJosefa diaz LPN - 04/15/2014 8:05 AM CDT Patient Followup Plan: Provided patient with Healthy Weight Matters brochure. Body mass index is 36.37 kg/(m^2). documented in this encounter Progress Notes Alexander Joel MD - 04/15/2014 8:36 AM CDT SUBJECTIVE: Annual Exam Patient here for annual physical. She has a history of hypertension. Has not been taking Cozaar which was recommended that she had to her regimen. Needs refills of that and all of her other medications. She love in [place]. Recently returned. Has noticed outpatient blood pressures have been elevated for about the last month as well. Has been meaning to restart the Cozaar but has not yet done so. ROS: As per HPI otherwise negative. Past Medical History: Patient Active Problem List Diagnosis ??? Hypertension ??? Hyperlipidemia ??? Obesity ??? Gastroesophageal Reflux Disease Medications: Outpatient Prescriptions Prior to Visit Medication Sig ??? aspirin EC 81 mg EC tablet Take 1 tablet by mouth daily (every 24 hours). ??? [DISCONTINUED] atenolol (TENORMIN) 50 mg tablet Take 1 tablet by mouth daily (every 24 hours). ??? Calcium-Cholecalciferol, D3, (CALTRATE-600 PLUS VITAMIN D3) 600-400 mg-unit Tab ??? [DISCONTINUED] lisinopril (PRINIVIL, ZESTRIL) 20 mg tablet Take 1 tablet by mouth daily (every 24 hours). ??? [DISCONTINUED] losartan (COZAAR) 25 mg tablet Take 1 tablet by mouth daily (every 24 hours). ??? [DISCONTINUED] simvastatin (ZOCOR) 10 mg tablet TAKE ONE TABLET BY MOUTH ONE TIME DAILY IN THE P.M. ??? valACYclovir (VALTREX) 1 g tablet Take 1 tablet by mouth 3 times daily. No facility-administered medications prior to visit. Adverse Drug Reactions: Allergies Allergen Reactions ??? Other LW Other1: -IV DYE/ANAPHYLAXIS ??? Penicillins LW Reaction: HIVES ??? Review Food Intolerance LW FI1: food-nka ??? Sulfa (Sulfonamide Antibiotics) LW Reaction: HIVES OBJECTIVE: Vital Signs: BP 151/77 Pulse 64 Ht 5' 4 (1.626 m) Wt 212 lb (96.163 kg) BMI 36.37 kg/m2 General: Pleasant, well appearing female HEENT: PERRLA, EOMI, no scleral icterus or injection. OROPHARYNX: Clear, mucous membranes moist, no pharyngeal erythema or exudate. NECK: Supple, no lymphadenopathy, no thyromegaly or thyroid masses. HEART: Regular rate and rhythm, no murmurs, rubs or gallops. LUNGS: Clear to auscultation bilaterally. Normal effort. ABDOMEN: Soft, nondistended, nontender. No hepatosplenomegaly. No palpable masses. EXTREMITIES: No cyanosis or edema. BREAST: No asymmetry, skin changes, nipple discharge, palpable masses or axillary adenopathy. ASSESSMENT: 1. Well adult exam Discussed healthy diet, exercise, adequate calcium, instructed in breast self exams. Mammogram scheduling information was provided. Patient will call to schedule her own appointment when due. 2. Hypertension - atenolol (TENORMIN) 50 mg tablet; Take 1 tablet by mouth daily (every 24 hours). Dispense: 90 tablet; Refill: 4 - lisinopril (PRINIVIL, ZESTRIL) 20 mg tablet; Take 1 tablet by mouth daily (every 24 hours). Dispense: 90 tablet; Refill: 4 - Electrolytes (NA, K, CL, Bicarb); Future - Creatinine; Future - losartan (COZAAR) 25 mg tablet; Take 1 tablet by mouth daily (every 24 hours). Dispense: 90 tablet; Refill: 4 3. Hyperlipidemia - simvastatin (ZOCOR) 10 mg tablet; TAKE ONE TABLET BY MOUTH ONE TIME DAILY IN THE P.M. Dispense: 90tablet; Refill: 4 - Cholesterol Fraction-LDLD If Trig High; Future - Alanine Aminotransferase; Future 4. Screening for diabetes mellitus - Glucose; Future 5. Screening for other and unspecified endocrine, nutritional, metabolic, and immunity disorders - TSH And Free T4 (FRT4 If TSH Abnorm); Future - Vitamin D (In house); Future PLAN: See Assessment. documented in this encounter Plan of Treatment Not on filedocumented as of this encounter Visit Diagnoses Diagnosis Well adult exam - Primary Routine general medical examination at a health care facility Unspecified essential hypertension (HRC) Unspecified essential hypertension Other and unspecified hyperlipidemia (HR C) Other and unspecified hyperlipidemia Screening for diabetes mellitus Screening for other and unspecified endo crine, nutritional, metabolic, and immunity disorders documented in this encounter Care Teams Director Child Relationship Specialty Start Date End Date Dirk Ruiz MD PCP - General 02/05/11 04/15/15 [address] [place] [address] documented as of this encounter
--- OUTSIDE RECORDS SUMMARY | 2022-08-15 14:57 | XMS_ITS | Encounter Summary ---
:1940 Author Organization [facility] Address [address] [place] [address] Care Team Providers Name Role Phone Dirk Ruiz MD Primary Care Provider Encounter Details Date Type Department Care Team Description 03/04/2011 PN Conversion Only [facility] ine Dirk Ruiz, [address] [place] [address] [facility] [phone] [place] [address] Social History Tobacco Use Types Packs/Day Years Used Date Smoking Tobacco: Never Assessed Sex Assigned at Date Recorded Not on file documented as of this encounter Plan of Treatment Not on filedocumented as of this encounter Visit Diagnoses Not on filedocumented in this encounter Care Teams Customer Supply Chain Analyst Relationship Specialty Start Date End Date Dirk Ruiz MD PCP - General 02/05/11 04/15/15 [address] [place] [address] documented as of this encounter
--- OUTSIDE RECORDS SUMMARY | 2022-08-15 14:57 | XMS_ITS | Encounter Summary ---
:1940 Author Organization [facility] Address [address] [place] [address] Care Team Providers Name Role Phone Unavailable Primary Care Provider Unavailable Encounter Details Date Type Department Care Team Description 03/16/2008 Hospital Encounter [place] [address] [place] [address] [place] [address] [place] [address] [place] [address] Social History Tobacco Use Types Packs/Day Years Used Date Smoking Tobacco: Never Assessed Sex Assigned at Date Recorded Not on file documented as of this encounter Medications at Time of Discharge Medication Sig Dispensed Refills Start Date End Date simvastatin (AKA ZOCOR) Take 1 tablet by mouth 90 3 03/09/2008 10 MG tablet every evening. LW Addl Instr:Indicated for: High Cholesterol simvastatin (AKA ZOCOR) Take 1 tablet by mouth 90 3 05/09/2007 10 MG tablet every evening. LW Addl Instr:Indicated for: High Cholesterol simvastatin (AKA ZOCOR) Take 1 tablet by mouth 90 3 05/07/2006 10 MG tablet every evening. LW Addl Instr:Indicated for: High Cholesterol aspirin EC 81 MG Take 1 tablet by mouth 13 006 07/10/2008 enteric coated tablet daily (every 24 hours). ATENolol (AKA TENORMIN) Take 1 tablet by mouth 90 3 03/09/2008 07/14/2010 50 MG tablet daily (every 24 hours). ATENolol (AKA TENORMIN) Take 1 tablet by mouth 90 3 05/09/2007 07/14/2010 50 MG tablet daily (every 24 hours). ATENolol (AKA TENORMIN) Take 1 tablet by mouth 90 3 04/30/2006 07/14/2010 50 MG tablet daily (every 24 hours). ATENolol (AKA TENORMIN) Take 1 tablet by mouth 90 3 07/12/2005 07/14/2010 50 MG tablet daily (every 24 hours). ATENolol (AKA TENORMIN) Take 1 tablet by mouth 90 3 07/01/2004 07/14/2010 50 MG tablet daily (every 24 hours). ATENolol (AKA TENORMIN) Take 1 tablet by mouth 90 3 07/01/2004 07/14/2010 50 MG tablet daily (every 24 hours). lisinopril (AKA Take 1 tablet by mouth 90 3 03/09/20 08 07/14/2010 ZESTRIL) 20 MG tablet daily (every 24 hours). lisinopril (AKA Take 1 tablet by mouth 90 3 07/02/20 07 07/14/2010 ZESTRIL) 20 MG tablet daily (every 24 hours). lisinopril (AKA Take 1 tablet by mouth 90 0 05/09/20 07 07/14/2010 ZESTRIL) 20 MG tablet daily (every 24 hours). lisinopril (AKA Take 1 tablet by mouth 90 0 07/04/20 06 07/14/2010 ZESTRIL) 20 MG tablet daily (every 24 hours). lisinopril (AKA Take 1 tablet by mouth 90 3 04/30/20 06 07/14/2010 ZESTRIL) 20 MG tablet daily (every 24 hours). lisinopril (AKA Take 1 tablet by mouth 90 3 07/12/20 05 07/14/2010 ZESTRIL) 20 MG tablet daily (every 24 hours). lisinopril (AKA Take 1 tablet by mouth 90 3 07/01/20 04 07/14/2010 ZESTRIL) 20 MG tablet daily (every 24 hours). lisinopril (AKA Take 1 tablet by mouth 90 3 05/30/20 04 07/14/2010 ZESTRIL) 20 MG tablet daily (every 24 hours). UNKNOWN MEDICATION Indications: PN: 0 03/13/2008 07/14/2010 UNKNOWN MEDICATION Indications: PN: 0 03/09/2008 07/14/2010 UNKNOWN MEDICATION Indications: PN: 0 03/05/2008 07/14/2010 UNKNOWN MEDICATION Indications: PN: 0 02/27/2008 07/14/2010 UNKNOWN MEDICATION Indications: PN: 0 02/25/2008 07/14/2010 UNKNOWN MEDICATION Indications: PN: 0 02/19/2008 07/14/2010 UNKNOWN MEDICATION Indications: PN: 0 05/09/2007 07/14/2010 UNKNOWN MEDICATION Indications: PN: 0 04/30/2006 07/14/2010 documented as of this encounter Procedure Notes Tom Adrian MD - 03/16/2008 12:01 AM CDT OR Surgeon signed by Tom Adrian MD at 03/17/08 0824 Author: Tom Adrian MD Service: (none) Author Type: Physician Filed: 02/25/11 0400 Note Time: 03/16/08 1110 Status: Signed Duralumin Metalworker: Tom Adrian MD (Physician) NAME: MICHELE PIZARRO MR#: [id number] ACCT: [id number] AUTHENTICATING CLINICIAN: TOM ADRIAN MD JOB: [id number] LOC: 1 OPERATIVE REPORT DATE OF OPERATION: 03/16/08 INDICATIONS FOR PROCEDURE: PREOPERATIVE DIAGNOSIS: Postmenopausal bleeding. POSTOPERATIVE DIAGNOSIS: Endometrial polyps and septate uterus. PROCEDURE PERFORMED: Hysteroscopy and endometrial curettage. SURGEON: TOM ADRIAN MD FINDINGS: DESCRIPTION OF OPERATION: The patient was prepped and draped in routine sterile fashion vaginally with IV sedation administered. A paracervical block with 20 mL of 1% lidocaine was administered and a 5 minute wait observed. The uterus was sounded to 6 cm and the cervix dilated with considerable difficulty. It was started with an os finder which served no useful purpose and then using very small dilators finally a canal was found and dilated. The 4.5 mm hysteroscope was inserted and the saline distending medium was turned on. There were 2 cavities that appeared to be symmetrical and there was a midline septum. The cavity on the left was considerably smaller than the one on the right. The cavity on the right was normal size and contained 4 small polypoid structures. They were smooth surfaced and appeared benign. The hysteroscope was removed and a small, sharp curet was used taking care to remain in the right endometrial cavity. Curettage was carried out producing small bits of polypoid tissue. The hysteroscope was reinserted and it was found that most of the polypoid tissue had been removed and included in the specimen. There was no bleeding. The patient tolerated the procedure well and left the operating room awake, alert and in good condition with all sponge and instrument counts correct. Estimated blood loss was negligible. Fluid loss negligible. EWL:[id number] C: 03/16/08 19:05 DOCUMENT: [id number] documented in this encounter Miscellaneous Notes Miscellaneous - Tom Adrian MD - 03/16/2008 12:01 AM CDT ICD-9-CM ICD-9-CM Narrative description Code ======== DIAGNOSES Principal: POLYP OF CORPUS UTERI 621.0 Secondary: DOUBLING OF UTERUS 752.2 HYPERTENSION NOS 401.9 ESOPHAGEAL REFLUX 530.81 PROCEDURES Provider1 Date Principal: D & C NEC TOM ADRIAN [id number] 69.09 Provider2: Provider3: COY GOODRICH Secondary: UTERINE LES DESTRUCT NEC TOM ADRIAN [id number] 68.29 Provider2: Provider3: COY GOODRICH documented in this encounter Plan of Treatment Not on filedocumented as of this encounter Procedures Procedure Name Priority Date/Time Associated Diagnosis Comme nts SURGICAL ELENA MANCIA Routine 03/16/2008 11:01 AM R esults for this NICOLLET CDT procedure are i n the results section. documented in this encounter Results Pathology Report (03/16/2008 11:01 AM CDT) [facility] Method Time Signature Surgical SEE TEXT No normal HP CONVERSION Pathology range Comment: Patient: MICHELE PIZARRO I ?S URGICAL PATHOLOGY REPORT Pathology # ??[id number] ?Date Obtained: ? Date Received: DIAGNOSIS: ?Endometrial curettings: ?- Endometrial polyp, associated wi th benign atrophic endometrium. ?Lisha Timmons M.D. ?(electronic signature) RPW/RPW/beh Date of Report: 03/17/08 Pathology # ??[id number] ?Date Obtained: ? Date Received: ORGAN/TISSUE SITE: ?Endometrium GROSS DESCRIPTION: ?The specimen is labeled endometria l curettings and consists of a 3.0 x 2.5 ?x 1.5 cm aggregate of schofield-pink sof t tissue fragments admixed with ?blood-tinged mucus. ??Entirely sub mitted in cassette [id number]. AMW/beh MICROSCOPIC DESCRIPTION: ?The paraffin sections include abun dant blood and mucus, plus fragmented ?bits of polypoid endometrium and s ome small bits of atrophic ?endometrium. ??The polyp fragments contain tubular and cystic glands ?showing nuclear stratification and variable mitotic activity, situated in ?a compact stroma with broad areas of old hemorrhage and collections of ?hemosiderin-laden macrophages, as well as some thick walled blood ?vessels. ??The non-polypoid endome trium contains compact, inactive ?appearing stroma and some tubular glands with inactive features. ??No ?evidence of endometrial hyperplasi a or malignancy is noted. Specimen (Source) Anatomical Collection Method Collection Time Re ceived Time Location / / Volume Laterality 03/16/2008 11:01 AM CDT Tom Adrian MD LAB_1 Performing Organization Address City/State/ZIP Code Phon e Number HP CONVERSION documented in this encounter Visit Diagnoses Not on filedocumented in this encounter
--- OUTSIDE RECORDS SUMMARY | 2022-08-15 14:57 | XMS_ITS | Encounter Summary ---
:1940 Author Organization [facility] Address [address] [place] [address] Care Team Providers Name Role Phone Unavailable Primary Care Provider Unavailable Encounter Details Date Type Department Care Team Description 03/11/2008 Hospital Encounter JEW CONVERSION Sunny Ruiz MD [address] [place] [address] Social History Tobacco Use Types Packs/Day Years [...] 24 hours). UNKNOWN MEDICATION Indications: PN: 0 03/09/2008 07/14/2010 UNKNOWN MEDICATION Indications: PN: 0 03/05/2008 07/14/2010 UNKNOWN MEDICATION Indications: PN: 0 02/27/2008 07/14/2010 UNKNOWN MEDICATION Indications: PN: 0 02/25/2008 07/14/2010 UNKNOWN MEDICATION Indications: PN: 0 02/19/2008 07/14/2010 UNKNOWN MEDICATION Indications: PN: 0 05/09/2007 07/14/2010 UNKNOWN MEDICATION Indications: PN: 0 04/30/2006 07/14/2010 documented as of this encounter Plan of Treatment Not on filedocumented as of this encounter Procedures Procedure Name Priority Date/Time Associated Comments Diagnosis STRESS ECHOCARDIOGRAM Routine 03/11/2008 9:40 AM Results for this CDT procedure are i n the results section. documented in this encounter Results Stress Echocardiogram (03/11/2008 9:40 AM CDT) Specimen (Source) Anatomical Collection Method Collection Time Re ceived Time Location / / Volume Laterality 03/11/2008 9:40 AM CDT Narrative HP CONVERSION - 03/11/2008 9:40 AM CDT This study included two-dimensional echo, pulse, continuous wave and color Doppler. INDICATION FOR EXAM: PRE-OP Abn EKG DIAGNOSIS: ??Abnormal Electrocardiogram (794.31) HEMODYNAMICS: Resting heart rate: 87 ? Resting blood pressure: 128/76 Maximum predicted heart rate: 155 ? Maximum blood pressure: 204/96 85% Max predicted heart rate: 132 ? Rate pressure product: ??28,764 Maximum heart rate achieved: ??141 ?Exercise duration: 6:53 % Maximum heart rate achieved: 91% ?? M ets: ??4.8 HEIGHT: 5'4 ?? WEIGHT: 204 ?? BSA: 1.97 m^2 ?? TECH: SH/CR ?? NURSE: SG MEDICATIONS: ??Atenolol held for greater than 48 hours. IMPLEMENTATION OF STRESS TEST CARE PLAN: Yes REVIEW OF INPATIENT CARE PLAN: ??n/a PROTOCOL: ??Bike ergometer-echocardiogra m without contrast. SYMPTOMS: Fatigue; Shortness of breath; Protocol completed; Predicted heart rate achieved. ??No angina elicite d. ECG, REST: Mild non-specific ST-T segmen ts. ECG, STRESS: A maximum of 0.5-1.[address] depression was present in leads II, III, avF, V4, V5 an d V6. ??ST-T changes become non-diagnostic within 30 seconds after t he end of exercise. ECHO, REST: ??Chamber size, wall motion, and wall thickness are normal. No significant valvular abnormalities ar e seen. ??The visually estimated left ventricular ejection frac tion is 65%. ??The right ventricle appears mildly dilated on limi lucille views. ECHO, STRESS: ??All segments display alissa ropriate hyperkinesis; ejection fraction increases appropriately. CONCLUSION: ??1. ??Normal exercise echoc ardiogram with adequate ? heart rate. ? 2. ??Image quality wa s suboptimal. ? 3. ??No evidence for inducible ischemia. ? 4. ??This test has di minished sensitivity due to ? suboptimal visu alization of at least two adjacent ? segments of the left ventricle (in the ASE 17 ? segment classif ication model). Imaging was off-axis. PRIMARY MD: ??Dr. Dirk Ruiz Dirk Ruiz MD PN ECHO ORDERABLES Performing Organization Address City/State/ZIP Code Phon e Number HP CONVERSION documented in this encounter Visit Diagnoses Not on filedocumented in this encounter
--- OUTSIDE RECORDS SUMMARY | 2022-08-15 14:57 | XMS_ITS | Encounter Summary ---
:1940 Author Organization [facility] Address [address] [place] [address] Care Team Providers Name Role Phone Dirk Ruiz MD Primary Care Provider Encounter Details Date Type Department Care Team Description 07/17/2011 Notes/Orders Sawyer Hernandez Joseph, Unspecified e ssential hypertension; Medicine MD Dirk Other and unspecified hyperlipidemia; [address] [place] [address] [place], [place] [phone] Social History Tobacco Use Types Packs/Day Years Used Date Smoking Tobacco: Never Assessed Sex Assigned at Date Recorded Not on file documented as of this encounter Plan of Treatment Not on filedocumented as of this encounter Procedures Procedure Name Priority Date/Time Associated Diagnosis Comme nts MM MAMMOGRAM Routine 07/17/2011 1:14 PM Other screening Result s for this SCREENING BILAT W CDT mammogram procedure are in CAD the results section. documented in this encounter Results MM Mammogram Screening Bilat W CAD (07/17/2011 1:14 PM CDT) Anatomical Region Laterality Modality Breast Bilateral Mammography Specimen (Source) Anatomical Location Collection Method / Collectio n Time Received Time / Laterality Volume Impressions 07/17/2011 4:06 PM CDT IMPRESSION: BILATERAL BREASTS Negative, no evidence of malignancy. Nor mal interval follow-up is recommended in 12 months. OVERALL ASSESSMENT - CATEGORY 1 - NEGATI VE END OF IMPRESSION Narrative 07/17/2011 4:06 PM CDT Comparison is made to films from 06/18/2008 (bilateral). Bilateral Breast Findings: The breasts are heterogeneously dense (5 1% - 75% fibroglandular). This may lower the sensitivity of mammog catrachito. ??No significant masses, calcifications or other abnormal ities are seen. Procedure Note Esau Shelton MD - 06/28/2016 Comparison is made to films from 008 (bilateral). Bilateral Breast Findings: The breasts are heterogeneously dense (5 1% - 75% fibroglandular). This may lower the sensitivity of mammog catrachito. No significant masses, calcifications or other abnormal ities are seen. IMPRESSION IMPRESSION: BILATERAL BREASTS Negative, no evidence of malignancy. Nor mal interval follow-up is recommended in 12 months. OVERALL ASSESSMENT - CATEGORY 1 - NEGATI VE END OF IMPRESSION Dirk Ruiz MD RAD KERMIT documented in this encounter Visit Diagnoses Diagnosis Unspecified essential hypertension (HRC) Unspecified essential hypertension Other and unspecified hyperlipidemia (HR C) Other and unspecified hyperlipidemia Other screening mammogram documented in this encounter Care Teams Soils Engineer Relationship Specialty Start Date End Date Dirk Ruiz MD PCP - General 02/05/11 04/15/15 [address] [place] [address] documented as of this encounter
--- OUTSIDE RECORDS SUMMARY | 2022-08-15 14:57 | XMS_ITS | Encounter Summary ---
:1940 Author Organization [facility] Address [address] [place] [address] Care Team Providers Name Role Phone Dirk Ruiz MD Primary Care Provider Encounter Details Date Type Department Care Team Description 07/14/2010 Office Visit [facility] [place] [address] [address] [place] [address] [phone] Social History Tobacco Use Types Packs/Day Years Used Date Smoking Tobacco: Never Assessed Sex Assigned at Date Recorded Not on file documented as of this encounter Last Filed Vital Signs Vital Sign Reading Time Taken Comments Blood Pressure 138/78 07/14/2010 7:33 AM CDT Pulse 80 07/14/2010 7:33 AM CDT Temperature - - Respiratory Rate - - Oxygen Saturation - - Inhaled Oxygen Concentration - - Weight 97.5 kg (214 lb 15.9 oz) 07/14/2010 7:33 AM C: 9 7.5kg CDT Height 162.6 cm (5' 4) 07/14/2010 7:33 AM C: 162.6cm CDT Body Mass Index 36.9 07/14/2010 7:33 AM CDT documented in this encounter Progress Notes Dirk Ruiz MD - 07/14/2010 12:01 AM CDT Progress Notes signed by Dirk Ruiz MD at 07/21/10 1131 Author: Dirk Ruiz MD Service: (none) Author Type: Physician Filed: 02/26/11 0112 Note Time: 07/14/10 0001 Status: Signed Drum Straightener: Dirk Ruiz MD (Physician) NAME: MICHELE PIZARRO I MR#: [id number] ACCT: [id number] VISIT: [id number] DICTATING CLINICIAN: Dirk Ruiz MD CONFIRM #: [id number] LOC: 602 CLINIC PROGRESS NOTE DATE OF VISIT: 07/14/2010 : 1940 A 69-year-old. Michele comes in for a physical. She has a history of hypertension, hyperlipidemia and GERD. She is on atenolol, Zocor, lisinopril, Caltrate, aspirin 81. She is active. She is spending more than half the year in [place] where she walks on a daily basis. I reviewed her labs from last year. Cholesterol was controlled. She had a stress echo, 03/2008, that was negative. She has had a D and C and foot surgery in the last few years. ALLERGIES: SHE IS ALLERGIC TO PENICILLIN AND SULFA. HISTORY: I reviewed her bone density. She love in [place] as noted. COMPLETE REVIEW OF SYSTEMS: Negative. Her mom had liver cancer. Dad, polycystic kidney. I suggested a shingles vaccine. She will get a Pneumovax today, she is 69, and a flu shot. HEENT: Negative. NECK: Supple. Thyroid normal. LUNGS: Clear. COR: Regular without murmur. ABDOMEN: Benign. BREASTS: Without masses. She had no adenopathy. EXTREMITIES: No CCE. DTRs symmetric. ASSESSMENT: Physical, age 69. Hypertension, hyperlipidemia, GERD, controlled. Labs pending. Continue weight control, exercise. Refilled meds. CC:MEDQ C: CONFIRM #: [id number] documented in this encounter Plan of Treatment Not on filedocumented as of this encounter Visit Diagnoses Not on filedocumented in this encounter Care Teams President And Chief Commercial Officer Relationship Specialty Start Date End Date Dirk Ruiz MD PCP - General 02/05/11 04/15/15 [address] [place] [address] documented as of this encounter
--- OUTSIDE RECORDS SUMMARY | 2022-08-15 14:57 | XMS_ITS | Encounter Summary ---
:1940 Author Organization [facility] Address [address] [facility] [place] [address] Care Team Providers Name Role Phone Dirk Ruiz MD Primary Care Provider Encounter Details Date Type Department Care Team Description 07/13/2009 PN Conversion Only LEE CONVERSION Dirk Ruiz, [address] [facility] MD [address] [address] [place] [address] [place] [address] Social History Tobacco Use Types Packs/Day Years Used Date Smoking Tobacco: Never Assessed Sex Assigned at Date Recorded Not on file documented as of this encounter Plan of Treatment Not on filedocumented as of this encounter Procedures Procedure Name Priority Date/Time Associated Comments Diagnosis GLUCOSE Routine 07/13/2009 8:34 AM Results f or this CDT procedure are i n the results section. THYROID STIMULATING Routine 07/13/2009 8:34 AM Re sults for this HORMONE CDT procedure are i n the results section. URINALYSIS ROUTINE, Routine 07/13/2009 8:34 AM Re sults for this MICRO/CULTURE IF POS CDT procedu re are in the results section. LIPID PANEL AND Routine 07/13/2009 8:34 AM Result s for this DIRECT LDL(IF NEEDED) CDT proced ure are in the results section. CREATININE / GFR Routine 07/13/2009 8:34 AM Resul ts for this CDT procedure are i n the results section. AST Routine 07/13/2009 8:34 AM Results f or this CDT procedure are i n the results section. POTASSIUM Routine 07/13/2009 8:34 AM Results f or this CDT procedure are i n the results section. documented in this encounter Results URINALYSIS ROUTINE, MICRO/CULTURE IF POS (07/13/2009 8:34 AM CDT) [facility] Method Time Signature Turbidity Clear No normal HP CONVERSION range pH Urine 6.0 4.5 - 7.5 HP CONVERSION Protein Urine Negative Neg-Trac HP CONVERSION Glucose, Negative Neg-Trac HP CONVERSION Qualitative U Ketones Negative Negative HP CONVERSION U BILI Negative Negative HP CONVERSION Blood Urine Negative Negative HP CONVERSION Nitrite Urine Negative Negative HP CONVERSION Leukocyte Negative Negative HP CONVERSION Esterase Urine Urobilinogen Negative 0.2 - 1.0 HP CONVERSION Urine U Specific 1.020 1.005 - 25 HP CONVERSION Mary Esther Specimen (Source) Anatomical Collection Method Collection Time Re ceived Time Location / / Volume Laterality 07/13/2009 8:34 AM CDT Dirk Ruiz MD LAB_1 Performing Organization Address [facility] Phon e Number HP CONVERSION THYROID STIMULATING HORMONE (07/13/2009 8:34 AM CDT) athologist Signature Thyroid 2.41 0.20 - HP CONVERSION Stimulating 4.50 Hormone uIU/mL Specimen (Source) Anatomical Collection Method Collection Time Re ceived Time Location / / Volume Laterality 07/13/2009 8:34 AM CDT Dirk Ruiz MD LAB_1 Performing Organization Address [facility] Code Phon e Number HP CONVERSION (ABNORMAL) Lipid Panel and Direct LDL(If Needed) (07/13/2009 8:34 AM CDT) [facility] Method Time Signature Length Of Fast 12.0 Hours HP CONVERSION Cholesterol/HDL 4.0 No normal HP CONVERSION Ratio Screen range Cholesterol 179 <200 mg/dL HP CONVERSION HDL Cholesterol 45 >40 mg/dL HP CONVERSION Triglycerides 263 (H) 0 - 149 HP CONVERSION mg/dL LDL Calculated 81 0 - 130 HP CONVERSION mg/dL Comment: Specimen (Source) Anatomical Collection Method Collection Time Re ceived Time Location / / Volume Laterality 07/13/2009 8:34 AM CDT Dirk Ruiz MD LAB_1 Performing Organization Address [facility] Phon e Number HP CONVERSION Potassium (07/13/2009 8:34 AM CDT) athologist Signature Potassium 4.4 3.5 - 5.2 HP CONVERSION mEq/L Specimen (Source) Anatomical Collection Method Collection Time Re ceived Time Location / / Volume Laterality 07/13/2009 8:34 AM CDT Dirk Ruiz MD LAB_1 Performing Organization [address] [facility] Code Phon e Number HP CONVERSION GLUCOSE (07/13/2009 8:34 AM CDT) athologist Signature Length Of Fast 12.0 Hours HP CONVERSION Lab Glucose 99 60 - 100 HP CONVERSION mg/dL Specimen (Source) Anatomical Collection Method Collection Time Re ceived Time Location / / Volume Laterality 07/13/2009 8:34 AM CDT Dirk Ruiz MD LAB_[address] Performing [address] [facility] Phon e Number HP CONVERSION (ABNORMAL) Creatinine / GFR (07/13/2009 8:34 AM CDT) athologist Signature Creatinine 1.0 0.4 - 1.3 HP CONVERSION Serum mg/dL Est GFR >60 >60 HP CONVERSION Am Comment: -English and Grn-Yajhjkb-Fupbgbo n reference range units: mL/min/1.73m2 Normal>60, moderate decrease 30 - 59, se rosalinda decrease 15 - 29, renal failure <15 mL/min/1.73 m2 NOTE: Choose the eGFR result above appro priate for the race of the patient. Est GFR Non-Afr Am 55 (L) >60 HP CONVERSI ON Specimen (Source) Anatomical Collection Method Collection Time Re ceived Time Location / / Volume Laterality 07/13/2009 8:34 AM CDT Dirk Ruiz MD LAB_1 Performing Organization [address] [facility] Code Phon e Number HP CONVERSION AST (07/13/2009 8:34 AM CDT) [facility] gist Method Time Signature Aspartate 24 0 - 45 HP CONVERSION Aminotransferase U/L Specimen (Source) Anatomical Collection Method Collection Time Re ceived Time Location / / Volume Laterality 07/13/2009 8:34 AM CDT Dirk Ruiz MD LAB_[address]forming [address] [facility] Code Phon e Number HP CONVERSION documented in this encounter Visit Diagnoses Not on filedocumented in this encounter Care Teams Yeast Supervisor Relationship Specialty Start Date End Date Dikr Ruiz MD PCP - General 02/05/11 04/15/15 [address] [place] [address] documented as of this encounter
--- OUTSIDE RECORDS SUMMARY | 2022-08-15 14:57 | XMS_ITS | Encounter Summary ---
:1940 Author [facility] Address [address] [place] [address] Care Team Providers Name Role Phone Dirk Ruiz MD Primary Care Provider Encounter Details Date Type Department Care Team Description 06/18/2008 PN Conversion Only [facility] [address] [place] [address] Social History Tobacco Use Types Packs/Day Years Used Date Smoking Tobacco: Never Assessed Sex Assigned at Date Recorded Not on file documented as of this encounter Plan of Treatment Not on filedocumented as of this encounter Procedures Procedure Name Priority Date/Time Associated Diagnosis Comme nts MM MAMMOGRAM Routine 06/18/2008 10:01 AM Results for this SCREENING W CAD CDT procedure ar e in the results section. documented in this encounter Results MM Mammogram Screening W CAD (06/18/2008 10:01 AM CDT) Anatomical Region Laterality Modality Breast Bilateral Mammography Specimen (Source) Anatomical Location Collection Method / Collectio n Time Received Time / Laterality Volume Impressions 06/23/2008 8:03 AM CDT : BILATERAL BREASTS - CATEGORY 2 Scattered punctate calcifications, uncha nged. Benign, no evidence of malignancy. Normal interval follow-up is recommended in 12 months. OVERALL ASSESSMENT - BENIGN END OF IMPRESSION Dictating HERB CANTU Radiologist Narrative 06/23/2008 8:03 AM CDT Comparison is made to films from 05/04/2006 (bilateral). ??There is no significant interval change. Bilateral Breast Findings: The breasts are heterogeneously dense. T his may lower the sensitivity of mammography. ??Scattered punctate brian cifications are present. Since the last study, no significant marva nge has occurred. Procedure Note Herb Chance - 01/09/2017Formatti ng of this note might be different from the original. Comparison is made to films from 006 (bilateral). There is no significant interval change. Bilateral Breast Findings: The breasts are heterogeneously dense. T his may lower the sensitivity of mammography. Scattered punctate calci fications are present. Since the last study, no significant marva nge has occurred. IMPRESSION : BILATERAL BREASTS - CATEGORY 2 Scattered punctate calcifications, uncha nged. Benign, no evidence of malignancy. Normal interval follow-up is recommended in 12 months. OVERALL ASSESSMENT - BENIGN END OF IMPRESSION Dictating HERB CANTU Radiologist Dirk Ruiz MD RAD [place] documented in this encounter Visit Diagnoses Not on filedocumented in this encounter Care Teams Pharmaceutical Plant Operator Relationship Specialty Start Date End Date Dirk Ruiz MD PCP - General 02/05/11 04/15/15 [address] [place] [address] documented as of this encounter
--- OUTSIDE RECORDS SUMMARY | 2022-08-15 14:57 | XMS_ITS | Encounter Summary ---
:1940 [address] [facility] Address [address] [place] [address] Care Team Providers Name Role Phone Unavailable Primary Care Provider Unavailable Encounter Details Date Type Department Care Team Description 03/05/2008 Hospital Encounter [facility] [address] Ben[address] Sweet MD [address] [place], [place] [id number] Endoscopy Joao Sweet MD [address] [place], [place] [phone] [address] [employer] [place] [address] Social History Tobacco Use Types [...] 24 hours). UNKNOWN MEDICATION Indications: PN: 0 02/27/2008 07/14/2010 UNKNOWN MEDICATION Indications: PN: 0 02/25/2008 07/14/2010 UNKNOWN MEDICATION Indications: PN: 0 02/19/2008 07/14/2010 UNKNOWN MEDICATION Indications: PN: 0 05/09/2007 07/14/2010 UNKNOWN MEDICATION Indications: PN: 0 04/30/2006 07/14/2010 documented as of this encounter Procedure Notes Joao Sweet MD - 03/05/2008 12:01 AM CDT Procedures signed by Joao Sweet MD at 03/05/08 1209 Author: Joao Sweet MD Service: (none) Author Type: Physician Filed: 02/25/11 0345 Note Time: 03/05/08 1105 Status: Signed Echocardiography Technologist: Joao Sweet MD (Physician) Patient Name: Michele Pizarro Procedure: Colonoscopy Indications: Average risk screening for malignant neoplasm in the colon, FHx form returned - no increased risk Providers: Joao Sweet MD, Coty Slater RN Referring MD: Dirk Ruiz MD Medicines: Midazolam 3 mg IV, Glucagon 0.5 mg IV, Fentanyl 100 micrograms IV Complications: No immediate complications Procedure: After I obtained informed consent, the scope was passed under direct vision. Throughout the procedure, the patient's blood pressure, pulse, and oxygen saturations were monitored continuously. The [id number] colonoscope was introduced through the anus and advanced to the ileum. The colonoscopy was performed without difficulty. The patient tolerated the procedure well. The quality of the prep was excellent. Findings: The perianal and digital rectal examinations were normal. A pedunculated polyp was found in the sigmoid colon. The polyp was 12 mm in size. The polyp was removed with a hot snare. Resection and retrieval were complete. Multiple large-mouthed diverticula were found in the sigmoid colon. Impression: - A 12 mm polyp in the sigmoid colon. Resected and retrieved. - Diverticulosis sigmoid colon. Recommendation: - Repeat colonoscopy in 3 years if the polyp(s) is adenomatous. CPT4 Code(s): 92544, Colonoscopy, flexible, proximal to splenic flexure; with removal of tumor(s), polyp(s), or other lesion(s) by snare technique ICD9 Code(s): V76.51, Special screening for malignant neoplasms, colon 211.3, Benign neoplasm of colon 562.10, Diverticulosis of colon (without mention of hemorrhage) The codes documented in this report are preliminary and upon professional fee coder review may be revised to meet current compliance requirements. Joao Sweet MD Signed Date: 03/05/2008 12:09:27 PM Number of Addenda: 0 This document has been electronically signed. Note generated on 03/05/2008 11:06:54 AM documented in this encounter Plan of Treatment Not on filedocumented as of this encounter Procedures Procedure Name Priority Date/Time Associated Comments Diagnosis SURGICAL ELENA MANCIA Routine 03/05/2008 12:16 PM R esults for this NICOLLET CDT procedure are i n the results section. ENDOSCOPY OBTAINED Routine 03/05/2008 12:07 PM Re sults for this ANATOMICAL PATH CDT procedure ar e in the results section. documented in this encounter Results Pathology Report (03/05/2008 12:16 PM CDT) [facility] gist Method Time Signature Surgical SEE TEXT No normal HP CONVERSION Pathology range Comment: Patient: MICHELE PIZARRO I ?S URGICAL PATHOLOGY REPORT Pathology # ??[id number] ?Date Obtained: ? Date Received: DIAGNOSIS: ?Colonic mucosal biopsies, sigmoid polyp: ?1. Polypoid fragment of colonic mu cosa with features of mucosal prolapse. ?2. No adenomatous polyp identified . ?Bobby Mccray MD ?(electronic signature) NICHOLS/NICHOLS/beh Date of Report: 03/06/08 Pathology # ??[id number] ?Date Obtained: ? Date Received: ORGAN/TISSUE SITE: ?Sigmoid colon biopsy GROSS DESCRIPTION: ?The specimen is labeled sigmoid co gustavo polyp and consists of a single schofield ?mucosal tissue fragment measuring 0.8 cm in greatest dimension. ??Entirely ?submitted in cassette 7447. AMW/cjk MICROSCOPIC DESCRIPTION: ?The microscopic examination substa ntiates the diagnosis cited. Specimen (Source) Anatomical Collection Method Collection Time Re ceived Time Location / / Volume Laterality 03/05/2008 12:16 PM CDT Joao Sweet MD LAB_1 Performing Organization Address City/[facility] Code Phon e Number HP CONVERSION Endoscopy Obtained Anatomical Path (03/05/2008 12:07 PM CDT) P athologist Signature Endo Tis Done No normal HP CONVERSION range Specimen (Source) Anatomical Collection Method Collection Time Re ceived Time Location / / Volume Laterality 03/05/2008 12:07 PM CDT Joao Sweet MD LAB_1 Performing Organization Address City/State/[facility] Code Phon e Number HP CONVERSION documented in this encounter Visit Diagnoses Not on filedocumented in this encounter
--- OUTSIDE RECORDS SUMMARY | 2022-08-15 14:57 | XMS_ITS | Encounter Summary ---
:1940 Author Organization [facility] Address [address] [place] [address] Care Team Providers Name Role Phone Dirk Ruiz MD Primary Care Provider Encounter Details Date Type Department Care Team Description 03/11/2008 PN Conversion Only CONVERSION CONVERSION Criss Brunner MD [address] [place] [address] (Wo rk) Social History Tobacco Use Types Packs/Day Years Used Date Smoking Tobacco: Never Assessed Sex Assigned at Date Recorded Not on file documented as of this encounter Plan of Treatment Not on filedocumented as of this encounter Visit Diagnoses Not on filedocumented in this encounter Care Teams Cds Sales Advisor Relationship Specialty Start Date End Date Dirk Ruiz MD PCP - General 02/05/11 04/15/15 [address] [place] [address] documented as of this encounter
--- OUTSIDE RECORDS SUMMARY | 2022-08-15 14:57 | XMS_ITS | Encounter Summary ---
:1940 Author Organization [facility] Address [address] [place] [address] Care Team Providers Name Role Phone Dirk Ruiz MD Primary Care Provider Encounter Details Date Type Department Care Team Description 03/12/2008 Notes/Orders [facility] icine Conversion, User [address] [place] [address] [place] [phone] [address] Social History Tobacco Use Types Packs/Day Years Used Date Smoking Tobacco: Never Assessed Sex Assigned at Date Recorded Not on file documented as of this encounter Plan of Treatment Not on filedocumented as of this encounter Procedures Procedure Name Priority Date/Time Associated Diagnosis Comme nts ENDOSCOPY, COLON, Routine 03/12/2008 3:38 PM CDT SCREENING/DIAGNOSTIC documented in this encounter Results Endoscopy, colon, diagnostic (03/12/2008 3:38 PM CDT) Specimen (Source) Anatomical Location Collection Method / Collectio n Time Received Time / Laterality Volume User Conversion PN GI PROCEDURE ORDERABLES Performing Organization Address City/State/ZIP Code Phon e Number HP CONVERSION documented in this encounter Visit Diagnoses Not on filedocumented in this encounter Care Teams Swing Saw Operator Relationship Specialty Start Date End Date Dirk Ruiz MD PCP - General 02/05/11 04/15/15 [address] [place] [address] documented as of this encounter
--- OUTSIDE RECORDS SUMMARY | 2022-08-15 14:57 | XMS_ITS | Encounter Summary ---
:1940 Author Organization [facility] Address [address] [address] Care Team Providers Name Role Phone Dirk Ruiz MD Primary Care Provider Encounter Details Date Type Department Care Team Description 07/13/2009 Office Visit [facility] [place] [address] [address] [place] [address] [phone] Social History Tobacco Use Types Packs/Day Years Used Date Smoking Tobacco: Never Assessed Sex Assigned at Date Recorded Not on file documented as of this encounter Last Filed Vital Signs Vital Sign Reading Time Taken Comments Blood Pressure 124/82 07/13/2009 7:38 AM CDT Pulse 70 07/13/2009 7:38 AM CDT Temperature - - Respiratory Rate - - Oxygen Saturation - - Inhaled Oxygen Concentration - - Weight 96.2 kg (211 lb 15.9 oz) 07/13/2009 7:38 AM C: 9 6.2kg CDT Height 162.6 cm (5' 4) 07/13/2009 7:38 AM C: 162.6cm CDT Body Mass Index 36.39 07/13/2009 7:38 AM CDT documented in this encounter Progress Notes Dirk Ruiz MD - 07/13/2009 12:01 AM CDT Progress Notes signed by Dirk Ruiz MD at 07/17/09 0906 Author: Dirk Ruiz MD Service: (none) Author Type: Physician Filed: 02/25/11 1612 Note Time: 07/13/09 0001 Status: Signed Filling Station Laborer: Dirk Ruiz MD (Physician) NAME: MICHELE PIZARRO MR#: [id number] ACCT: [id number] VISIT: [id number] DICTATING CLINICIAN: DIRK RUIZ MD CONFIRM #: [id number] LOC: 602 CLINIC PROGRESS NOTE DATE OF VISIT: 07/13/2009 SUBJECTIVE: : 1940. 68-year-old. Michele is in for a complete physical. She spends love in [place]. This year she had a workup that included a stress echo 03/12 that was negative. She had a D and C, and some foot surgery. Colonoscopy and mammogram are normal from last year, and she had a normal bone density 4 years ago. Mom had liver cancer; dad, polycystic kidney. The patient had an ultrasound that was negative. She has 2 sisters who are healthy, but they have obesity. High blood pressure, high cholesterol. GERD symptoms. She will check on shingles, Pneumovax. I suggested and she will get a flu shot today and a tetanus update. MEDICATIONS: She is on atenolol, Zocor, lisinopril, aspirin 81, and calcium/vitamin D. COMPLETE REVIEW OF SYSTEMS: Negative. OBJECTIVE: VS: Stable. Ht: 5 ft 4-1/2. Wt: 212, suggested getting the weight under 200. HEENT: Negative. NECK: Supple. LUNGS: Clear. COR: Regular without murmur. Normal. BREASTS: Without masses. A few moles of the trunk appear benign. ABDOMEN: Benign. No axillary or cervical adenopathy. EXTREMITIES: Trace edema. DTRs symmetric. ASSESSMENT: Physical age 68. PLAN: Creatinine, AST, UA, cholesterol, blood sugar, TSH, K pending. She will schedule a mammogram. Discussed SBE. She does have a dental infection and she is seeing a dentist. She is on an antibiotic presently. Last DT was 1998. Side effects of shots reviewed. [id number] C: 07/14/09 19:56 CONFIRM #: [id number] documented in this encounter Plan of Treatment Not on filedocumented as of this encounter Visit Diagnoses Not on filedocumented in this encounter Care Teams Breaker Boss Relationship Specialty Start Date End Date Dirk Ruiz MD PCP - General 02/05/11 04/15/15 [address] [place] [address] documented as of this encounter
--- OUTSIDE RECORDS SUMMARY | 2022-08-15 14:57 | XMS_ITS | Encounter Summary ---
:1940 Author Organization [facility] Address [address] [place] [address] Care Team Providers Name Role Phone Dirk Ruiz MD Primary Care Provider Reason for Visit Reason Comments Other Encounter Details Date Type Department Care Team Description 03/11/2008 Telephone [facility], Message Other [address] [place] [address] Social History Tobacco Use Types Packs/Day Years Used Date Smoking Tobacco: Never Assessed Sex Assigned at Date Recorded Not on file documented as of this encounter Progress Notes Sara Stafford - 03/11/2008 10:17 AM CDT Phone Note filed by Sara Stafford at 02/22/112007 Author: Sara Stafford Service: (none) Author Type: (none) Filed: 02/22/112007 Note Time: 03/11/08 1017 Status: Signed Ordnance Keeper: Aline Camarena Preliminary Stress ECHO results are available on this patient in LastWord. Created on 11Mar2008 10:17am by SARA STAFFORD On 11Mar2008 12:36pm DIRK RUIZ wrote: plz inform pt. =nl stress echo-ok for surg Acknowledged by DIRK RUIZ on 12:36pm On 11Mar2008 1:16pm YUE LEONE wrote: pt. notified. Acknowledged by YUE LEONE on 1:16pm GHT SALES BROKER documented in this encounter Plan of Treatment Not on filedocumented as of this encounter Visit Diagnoses Not on filedocumented in this encounter Care Teams Photoengraving Etcher Relationship Specialty Start Date End Date Dirk Ruiz MD PCP - General 02/05/11 04/15/15 [address] [place] [address] documented as of this encounter
--- OUTSIDE RECORDS SUMMARY | 2022-08-15 14:57 | XMS_ITS | Encounter Summary ---
:1940 Author Organization [facility] Address [address] [facility] [place] [address] Care Team Providers Name Role Phone Dirk Ruiz MD Primary Care Provider Encounter Details Date Type Department Care Team Description 07/17/2011 Lab Visit [facility] Unspecified essential hypert ension; [address] [facility] Oth er and [place] [address] Social History Tobacco Use Types Packs/Day Years Used Date Smoking Tobacco: Never Assessed Sex Assigned at Date Recorded Not on file documented as of this encounter Plan of Treatment Not on filedocumented as of this encounter Procedures Procedure Name Priority Date/Time Associated Diagnosis Comme nts URINE MICROSCOPIC Routine 07/17/2011 8:35 Results for this AM CDT procedure are i n the results section. GLUCOSE Routine 07/17/2011 8:35 Unspecified essential Res ults for this AM CDT hypertension (HRC) procedure are in the results section. THYROID STIMULATING Routine 07/17/2011 8:35 Unspecified essent ial Results for this HORMONE AM CDT hypertension (HRC) procedure are in the results section. URINALYSIS ROUTINE, Routine 07/17/2011 8:35 Unspecified essent ial Results for this MICRO/CULTURE IF POS AM CDT hypertension (HRC) p rocedure are in the results section. LIPID PANEL AND Routine 07/17/2011 8:35 Other and unspecified Results for this DIRECT LDL(IF AM CDT hyperlipidemia (HRC) proced ure are in NEEDED) the results section. CREATININE / GFR Routine 07/17/2011 8:35 Unspecified essential Results for this AM CDT hypertension (HRC) procedure are in the results section. ELECTROLYTE PANEL Routine 07/17/2011 8:35 Unspecified essentia l Results for this AM CDT hypertension (HRC) procedure are in the results section. AST Routine 07/17/2011 8:35 Other and unspecified Res ults for this AM CDT hyperlipidemia (HRC) procedu re are in the results section. VENIPUNCTURE (YAYO) Routine 07/17/2011 8:30 Unspecified essent ial Results for this AM CDT hypertension (HRC) procedure are in the results section. documented in this encounter Results (ABNORMAL) URINE MICROSCOPIC (07/17/2011 8:35 AM CDT) Analysis Performed At Patho logist Time Signature White Blood 0-2 0 - 4 /HPF HP CONVERSION Cells Urine Red Blood Cells 3-4 (A) 0 - 2 /HPF HP CONVERSION Urine Bacteria Urine 2-5 /HPF HP CONVERSION Epithelial Few /HPF HP CONVERSION Cells Specimen Anatomical Collection Method Collection Time Receive d Time (Source) Location / / Volume Laterality 07/17/2011 8:35 AM 1 8:35 CDT AM CDT Narrative HP CONVERSION - 07/17/2011 9:24 AM CDT Performed at [facility], [address] [place] [address] Dirk Ruiz MD LAB_1 Performing Organization Address City/State/ZIP Code Phon e Number HP CONVERSION (ABNORMAL) URINALYSIS ROUTINE, MICRO/CULTURE IF POS (07/17/2011 8:35 AM CDT) [facility] gist Method Time Signature Urine Type Urine:clean HP [...] - Trace HP CONVERSION mg/dL U Specific 1.020 1.005 - HP CONVERSION [place] 1.030 Urobilinogen Negative Negative HP CONVERSION Urine Eu/dL Specimen Anatomical Collection Method Collection Time Receive d Time (Source) Location / / Volume Laterality Urine: 07/17/2011 8:35 AM 1 8:35 CDT AM CDT Narrative HP CONVERSION - 07/17/2011 9:24 AM CDT Performed at [facility], [address] [place] [address] Dirk Ruiz MD LAB_1 Performing Organization Address City/State/ZIP Code Phon e Number HP CONVERSION THYROID STIMULATING HORMONE (07/17/2011 8:35 AM CDT) athologist Signature Thyroid 3.82 0.20 - HP CONVERSION Stimulating 4.50 mIU/L Hormone Specimen Anatomical Collection Method Collection Time Receive d Time (Source) Location / / Volume Laterality 07/17/2011 8:35 AM 1 CDT 11:26 AM CDT Dirk Ruiz MD LAB_1 Performing Organization Address City/[facility]/ZIP Code Phon e Number HP CONVERSION (ABNORMAL) Lipid Panel and Direct LDL(If Needed) (07/17/2011 8:35 AM CDT) [facility] Method Time Signature Cholesterol 174 0 - 200 HP CONVERSION mg/dL Triglycerides 284 (H) 0 - 149 HP CONVERSION mg/dL HDL Cholesterol 38 (L) >39 mg/dL HP CONVERSION Cholesterol/HDL 4.6 HP CONVERSION Ratio Screen LDL Calculated 79 19 - 130 HP CONVERSION mg/dL Length Of Fast 12 HP CONVERSION Specimen Anatomical Collection Method Collection Time Receive d Time (Source) Location / / Volume Laterality 07/17/2011 8:35 AM 1 CDT 11:26 AM CDT Dirk Ruiz MD LAB_1 Performing Organization Address City/[facility]/ZIP Code Phon e Number HP CONVERSION Electrolyte Panel (07/17/2011 8:35 AM CDT) athologist Signature Sodium 146 137 - 147 HP CONVERSION mEq/L Potassium 4.3 3.5 - 5.2 HP CONVERSION mEq/L Chloride 105 98 - 110 HP CONVERSION mEq/L Bicarbonate 30 23 - 33 HP CONVERSION mmol/L Specimen Anatomical Collection Method Collection Time Receive d Time (Source) Location / / Volume Laterality 07/17/2011 8:35 AM 1 CDT 11:26 AM CDT Dirk Ruiz MD LAB_1 Performing Organization Address City/State/ZIP Code Phon e Number HP CONVERSION GLUCOSE (07/17/2011 8:35 AM CDT) athologist Signature Lab Glucose 91 60 - 100 HP CONVERSION mg/dL Specimen Anatomical Collection Method Collection Time Receive d Time (Source) Location / / Volume Laterality 07/17/2011 8:35 AM 1 CDT 11:26 AM CDT Dirk Ruiz MD LAB_1 Performing Organization Address City/[facility] Code Phon e Number HP CONVERSION Creatinine / GFR (07/17/2011 8:35 AM CDT) athologist Signature Creatinine 0.8 0.4 [...] Time (Source) Location / / Volume Laterality 07/17/2011 8:35 AM 1 CDT 11:26 AM CDT Dirk Ruiz MD LAB_1 Performing Organization Address City/[facility] Code Phon e Number HP CONVERSION AST (07/17/2011 8:35 AM CDT) [facility] Method Time Signature Aspartate 27 0 - 45 HP CONVERSION Aminotransferase U/L Specimen Anatomical Collection Method Collection Time Receive d Time (Source) Location / / Volume Laterality 07/17/2011 8:35 AM 1 CDT 11:26 AM CDT Dirk Ruiz MD LAB_1 Performing Organization Address City/[facility] Phon e Number HP CONVERSION VENIPUNCTURE (YAYO) (07/17/2011 8:30 AM CDT) athologist Signature Venipuncture Done HP CONVERSION Specimen (Source) Anatomical Collection Method Collection Time Re ceived Time Location / / Volume Laterality 07/17/2011 8:30 AM CDT Narrative HP CONVERSION - 07/17/2011 8:30 AM CDT Performed at [address], [place] [address] Dirk Ruiz MD LAB_1 Performing Organization Address City/State/ZIP Code Phon e Number HP CONVERSION documented in this encounter Visit Diagnoses Diagnosis Unspecified essential hypertension (HRC) Unspecified essential hypertension Other and unspecified hyperlipidemia (HR C) Other and unspecified hyperlipidemia documented in this encounter Care Teams Returned Goods Inspector Relationship Specialty Start Date End Date Dirk Ruiz MD PCP - General 02/05/11 04/15/15 [address] [place] [address] documented as of this encounter
--- OUTSIDE RECORDS SUMMARY | 2022-08-15 14:57 | XMS_ITS | Encounter Summary ---
:1940 Author Organization [facility] Address [address] [place] [address] Care Team Providers Name Role Phone Dirk Ruiz MD Primary Care Provider Encounter Details Date Type Department Care Team Description 03/16/2008 PN Conversion Only CONV OB GYNECOLOGY Jas Adrian MD [address] [facility] [address] [place] [address] [place], [place] [id number] (Wo rk) Social History Tobacco Use Types Packs/Day Years Used Date Smoking Tobacco: Never Assessed Sex Assigned at Date Recorded Not on file documented as of this encounter Plan of Treatment Not on filedocumented as of this encounter Visit Diagnoses Not on filedocumented in this encounter Care Teams Peanut Vendor Relationship Specialty Start Date End Date Dirk Ruiz MD PCP - General 02/05/11 04/15/15 [address] [place], [place] [id number] documented as of this encounter
--- OUTSIDE RECORDS SUMMARY | 2022-08-15 14:57 | XMS_ITS | Encounter Summary ---
:1940 Author Organization [facility] Address [address] [place] [address] Care Team Providers Name Role Phone Dirk Ruiz MD Primary Care Provider Reason for Visit Reason Comments Other Encounter Details Date Type Department Care Team Description 05/26/2010 Telephone [facility] Medic [place] Other [address] [place] [address] Social History Tobacco Use Types Packs/Day Years Used Date Smoking Tobacco: Never Assessed Sex Assigned at Date Recorded Not on file documented as of this encounter Progress Notes Yvette Molina RN - 05/26/2010 12:08 PM CDT Phone Note filed by Yvette Molina RN at 02/25/11 3607 Author: Yvette Molina RN Service: (none) Author Type: Registered Nurse Filed: 02/25/11 1315 Note Time: 05/26/10 1208 Status: Signed Carpet Measurer: Yvette Molina RN (Registered Nurse) Patient transferred to the nurse on the ER line. Woke at 3:30 and noticed that half her face was swollen. Also noticed that her lips were swollen and half her tongue. Took Benadryl 25 mg at 4 AM and fell back to sleep. Also took another Benadryl 25 mg at 8 AM. Swelling is now down. Denies swelling of the tongue, face, lips. Speech is clear. No SOB. Able to swallow food and fluids.Does not know what might have caused this reaction. Appt booked at [address] Duran. Advised if symptoms should worsen again that she should call 911. She understands this information. Created on [id number] 12:08pm by YVETTE MOLINA OW UNIT AIR CONDITIONING MECHANIC documented in this encounter Plan of Treatment Not on filedocumented as of this encounter Visit Diagnoses Not on filedocumented in this encounter Care Teams Document Scanner Relationship Specialty Start Date End Date Dirk Ruiz MD PCP - General 02/05/11 04/15/15 [address] [place] [address] documented as of this encounter
--- OUTSIDE RECORDS SUMMARY | 2022-08-15 14:57 | XMS_ITS | Encounter Summary ---
:1940 Author Organization [facility] Address [address] [facility] [place] [address] Care Team Providers Name Role Phone Dirk Ruiz MD Primary Care Provider Encounter Details Date Type Department Care Team Description 07/14/2010 PN Conversion Only RESTORATION CONVERSION Sunny Ruiz MD [address] [place] [address] Social History Tobacco Use Types Packs/Day Years Used Date Smoking Tobacco: Never Assessed Sex Assigned at Date Recorded Not on file documented as of this encounter Plan of Treatment Not on filedocumented as of this encounter Procedures Procedure Name Priority Date/Time Associated Comments Diagnosis LIPID PANEL AND Routine 07/14/2010 8:36 AM Result s for this DIRECT LDL(IF NEEDED) CDT proced ure are in the results section. CREATININE / GFR Routine 07/14/2010 8:36 AM Resul ts for this CDT procedure are i n the results section. ELECTROLYTE PANEL Routine 07/14/2010 8:36 AM Resu lts for this CDT procedure are i n the results section. AST Routine 07/14/2010 8:36 AM Results f or this CDT procedure are i n the results section. URINE MICROSCOPIC Routine 07/14/2010 8:22 AM Resu lts for this CDT procedure are i n the results section. URINALYSIS ROUTINE, Routine 07/14/2010 8:22 AM Re sults for this MICRO/CULTURE IF POS CDT procedu re are in the results section. documented in this encounter Results (ABNORMAL) Lipid Panel and Direct LDL(If Needed) (07/14/2010 8:36 AM CDT) [facility] Method Time Signature Cholesterol 176 0 - 200 HP CONVERSION mg/dL Triglycerides 178 (H) 0 - 149 HP CONVERSION mg/dL HDL Cholesterol 44 >39 mg/dL HP CONVERSION Cholesterol/HDL 4.0 No normal HP CONVERSION Ratio Screen range LDL Calculated 96 19 - 130 HP CONVERSION mg/dL Length Of Fast 12.0 No normal HP CONVERSION range Specimen (Source) Anatomical Collection Method Collection Time Re ceived Time Location / / Volume Laterality 07/14/2010 8:36 AM CDT Dirk Ruiz MD LAB_1 Performing Organization Address City/[facility] Code Phon e Number HP CONVERSION Electrolyte Panel (07/14/2010 8:36 AM CDT) athologist Signature Sodium 146 137 - 147 HP CONVERSION mEq/L Potassium 4.7 3.5 - 5.2 HP CONVERSION mEq/L Chloride 106 98 - 110 HP CONVERSION mEq/L Bicarbonate 31 23 - 33 HP CONVERSION mmol/L Specimen (Source) Anatomical Collection Method Collection Time Re ceived Time Location / / Volume Laterality 07/14/2010 8:36 AM CDT Dirk Ruiz MD LAB_1 Performing Organization Address [facility] Phon e Number HP CONVERSION (ABNORMAL) Creatinine / GFR (07/14/2010 8:36 AM CDT) athologist Signature Creatinine 0.9 0.4 - 1.3 HP CONVERSION Serum mg/dL Est GFR >60 >60 HP CONVERSION Am mL/min/1.7 Est GFR Non-Afr 59 (L) >60 HP CONVERSION Am mL/min/1.7 Comment: Normal>60, moderate decrease 30 - 59, se rosalinda decrease 15 - 29, renal failure <15 mL/min/1.73 m2 NOTE: ??Choose the eGFR result above alissa ropriate for the race of the patient. Specimen (Source) Anatomical Collection Method Collection Time Re ceived Time Location / / Volume Laterality 07/14/2010 8:36 AM CDT Dirk Ruiz MD LAB_1 Performing Organization Address [facility] Phon e Number HP CONVERSION AST (07/14/2010 8:36 AM CDT) [facility] Method Time Signature Aspartate 24 0 - 45 HP CONVERSION Aminotransferase U/L Specimen (Source) Anatomical Collection Method Collection Time Re ceived Time Location / / Volume Laterality 07/14/2010 8:36 AM CDT Dirk Ruiz MD LAB_1 Performing Organization Address City/[facility] Code Phon e Number HP CONVERSION URINE MICROSCOPIC (07/14/2010 8:22 AM CDT) [facility] Method Time Signature White Blood None seen 0 - 4 HP CONVERSION Cells Urine /HPF Red Blood Cells 0-2 0 - 2 HP CONVERSION Urine /HPF Epithelial Few /HPF HP CONVERSION Cells Specimen (Source) Anatomical Collection Method Collection Time Re ceived Time Location / / Volume Laterality 07/14/2010 8:22 AM CDT Dirk Ruiz MD LAB_1 Performing Organization Address City/[facility] Phon e Number HP CONVERSION (ABNORMAL) URINALYSIS ROUTINE, MICRO/CULTURE IF POS (07/14/2010 8:22 AM CDT) [facility] Method Time Signature Urine Type Cln catch No normal HP CONVERSION range Turbidity Clear Clear HP CONVERSION U BILI Negative Negative HP CONVERSION Blood Urine Trace (A) Negative HP CONVERSION Glucose, Negative Neg-30 mg/dL HP CONVERSION Qualitative U Ketones Negative Negative HP CONVERSION Leukocyte Negative Negative HP CONVERSION Esterase Urine Nitrite Urine Negative Negative HP CONVERSION pH Urine 5.5 5.0 - 8.0 HP CONVERSION Protein Urine Negative Neg - Trace HP CONVERSION mg/dL U Specific 1.020 1.005 - HP CONVERSION [place] 1.030 Urobilinogen Negative Negative HP CONVERSION Urine Eu/dL Specimen (Source) Anatomical Collection Method Collection Time Re ceived Time Location / / Volume Laterality 07/14/2010 8:22 AM CDT Dirk Ruiz MD LAB_1 Performing Organization Address City/State/[facility] Phon e Number HP CONVERSION documented in this encounter Visit Diagnoses Not on filedocumented in this encounter Care Teams Neighborhood Conservation Officer Relationship Specialty Start Date End Date Dirk Ruiz MD PCP - General 02/05/11 04/15/15 [address] [place] [address] documented as of this encounter
--- OUTSIDE RECORDS SUMMARY | 2022-08-15 14:57 | XMS_ITS | Encounter Summary ---
:1940 Author Organization [facility] Address [address] [place] [address] Care Team Providers Name Role Phone Dirk Ruiz MD Primary Care Provider Reason for Visit Reason Comments Refill Encounter Details Date Type Department Care Team Description 06/29/2011 Refill [facility] Dirk Ruiz MD Refill [address] [facility] [address] [facility] [place] [address] [place] [address] [phone] Social History Tobacco Use Types Packs/Day Years Used Date Smoking Tobacco: Never Assessed Sex Assigned at Date Recorded Not on file documented as of this encounter Plan of Treatment Not on filedocumented as of this encounter Visit Diagnoses Not on filedocumented in this encounter Care Teams Help Desk Rep Relationship Specialty Start Date End Date Dirk Ruiz MD PCP - General 02/05/11 04/15/15 [address] [place] [address] documented as of this encounter
--- OUTSIDE RECORDS SUMMARY | 2022-08-15 14:57 | XMS_ITS | Encounter Summary ---
:1940 Author Organization [facility] Address [address] [place] [address] Care Team Providers Name Role Phone Dirk Ruiz MD Primary Care Provider Encounter Details Date Type Department Care Team Description 07/13/2009 PN Conversion Only LEE CONVERSION [address] [facility] [place] [address] Social History Tobacco Use Types Packs/Day Years Used Date Smoking Tobacco: Never Assessed Sex Assigned at Date Recorded Not on file documented as of this encounter Plan of Treatment Not on filedocumented as of this encounter Visit Diagnoses Not on filedocumented in this encounter Care Teams Probation Supervisor Relationship Specialty Start Date End Date Dirk Ruiz MD PCP - General 02/05/11 04/15/15 [address] [place] [address] documented as of this encounter
--- OUTSIDE RECORDS SUMMARY | 2022-08-15 14:57 | XMS_ITS | Encounter Summary ---
:1940 Author Organization [facility] Address [address] [place] [address] Care Team Providers Name Role Phone Dirk Ruiz MD Primary Care Provider Encounter Details Date Type Department Care Team Description 03/09/2008 PN Conversion Only [facility] [place] [address] [address] [id number] (Wo rk) Social History Tobacco Use Types Packs/Day Years Used Date Smoking Tobacco: Never Assessed Sex Assigned at Date Recorded Not on file documented as of this encounter Last Filed Vital Signs Vital Sign Reading Time Taken Comments Blood Pressure 138/90 03/09/2008 10:49 AM CDT Pulse 60 03/09/2008 10:49 AM CDT Temperature 36.5 ??C (97.7 ??F) 03/09/2008 10:49 AM C: 36.5 C CDT Respiratory Rate 12 03/09/2008 10:49 AM CDT Oxygen Saturation - - Inhaled Oxygen Concentration - - Weight 92.5 kg (203 lb 15.9 oz) 03/09/2008 10:49 AM C: 92.5kg CDT Height 161.9 cm (5' 3.75) 03/09/2008 10:49 AM C: 161.9 cm CDT Body Mass Index 35.29 03/09/2008 10:49 AM CDT documented in this encounter Plan of Treatment Not on filedocumented as of this encounter Procedures Procedure Name Priority Date/Time Associated Diagnosis Comme nts ECG 12 [facility] Routine 03/09/2008 11:37 AM Re sults for this CDT procedure are i n the results section. documented in this encounter Results ECG 12 lead clinic (03/09/2008 11:37 AM CDT) Specimen (Source) Anatomical Collection Method Collection Time Re ceived Time Location / / Volume Laterality 03/09/2008 11:37 AM CDT Narrative HP CONVERSION - 03/09/2008 11:37 AM CDT Normal sinus rhythm Low voltage QRS Otherwise normal ECG No previous ECGs available Imr Conversion PN ECG ORDERABLES Performing Organization Address City/State/ZIP Code Phon e Number HP CONVERSION documented in this encounter Visit Diagnoses Not on filedocumented in this encounter Care Teams Laborer Mine Relationship Specialty Start Date End Date Dirk Ruiz MD PCP - General 02/05/11 04/15/15 [address] [place] [address] documented as of this encounter
--- OUTSIDE RECORDS SUMMARY | 2022-08-15 14:57 | XMS_ITS | Encounter Summary ---
:1940 Author Organization [facility] Address [address] [place] [address] Care Team Providers Name Role Phone Dirk Ruiz MD Primary Care Provider Encounter Details Date Type Department Care Team Description 03/09/2008 PN Conversion Only LEE CONVERSION Dirk Ruiz, [address] [address] [facility] MD [place] [address] [place] [address] [place] [address] Social History Tobacco Use Types Packs/Day Years Used Date Smoking Tobacco: Never Assessed Sex Assigned at Date Recorded Not on file documented as of this encounter Plan of Treatment Not on filedocumented as of this encounter Visit Diagnoses Not on filedocumented in this encounter Care Teams Research And Evaluation Analyst Relationship Specialty Start Date End Date Dirk Ruiz MD PCP - General 02/05/11 04/15/15 [address] [place] [address] documented as of this encounter
--- OUTSIDE RECORDS SUMMARY | 2022-08-15 14:57 | XMS_ITS | Encounter Summary ---
:1940 Author [facility] Address [address] [place] [address] Care Team Providers Name Role Phone Dirk Ruiz MD Primary Care Provider Reason for Visit Reason Comments Annual Exam Encounter Details Date Type Department Care Team Description 07/17/2011 Office Visit Sawyer Hernandez Joseph, Unspecified e ssential hypertension; Medicine MD Dirk Other and unspecified hyperlipidemia; [address] Esop hageal reflux; [address] Obesity, [place] [address] [place], [place] [phone] [address] Social History Tobacco Use Types Packs/Day Years Used Date Smoking Tobacco: Never Assessed Sex Assigned at Date Recorded Not on file documented as of this encounter Progress Notes Dirk Ruiz MD - 07/17/2011 9:29 AM CDT Progress Notes signed by Dirk Ruiz MD at 07/17/11 1343 Author: Dirk Ruiz MD Service: (none) Author Type: Physician Filed: 07/17/11 1343 Note Time: 07/17/11928 Status: Signed Cafe Attendant: Dirk Ruiz MD (Physician) NAME: MICHELE PIZARRO I MR#: [id number] CSN: [id number] AUTHENTICATING CLINICIAN: Dirk Ruiz MD CONFIRM #: [id number] LOC: 602 CLINIC PROGRESS NOTE DATE OF VISIT: 07/17/2011 : 1940 A 70-year-old. Michele is here for a complete physical. Her blood pressure was up today 192/101 and that dropped to 176/81. She has had hypertension for some years. Her weight is stable at 215 but stressed the need for her to get the weight down. We are going to add another agent. Usually her blood pressures are under 130/80 but she has been eating more and been a little less active lately. Her sister has hypertension. Mom had liver cancer and Dad polycystic kidney. Patient has had an ultrasound that was negative. We are going to add Norvasc to her regimen. She is on atenolol 50 and lisinopril 20 and she will call back in 3 weeks with blood pressures. She is going to be leaving for [place] in a month. Vital signs see [facility]. Her shots up-to-date. Suggested a shingles vaccine and discussed colonoscopy 03/2008 and reviewed allergic to penicillin and sulfa. Nonsmoker, nondrinker. We are going to repeat her bone density which was normal about 6 years now. Complete review of systems negative. No chest pain or shortness of breath, palpitations, GI or symptoms. HEENT: Negative. NECK: Supple. Thyroid normal. LUNGS: Clear. HEART: Regular without murmur. BREASTS: Without masses. No axillary or cervical adenopathy. ABDOMEN: Benign. She has some seborrheic keratoses of the trunk that appear benign. She had good pulses. No adenopathy. No high-risk activities. I will contact her with labs to include mammogram, bone density. She will get a flu shot today. ASSESSMENT: Physical age 70. Obesity discussed. GERD (gastroesophageal reflux disease). Hyperlipidemia. Hypertension controlled. Add Norvasc. In addition to physical 50 minutes counseling on the hypertension and the weight. CC:MEDQ C: CONFIRM #: [id number] documented in this encounter Plan of Treatment Not on filedocumented as of this encounter Visit Diagnoses Diagnosis Unspecified essential hypertension (HRC) Unspecified essential hypertension Other and unspecified hyperlipidemia (HR C) Other and unspecified hyperlipidemia Esophageal reflux Obesity, unspecified (HRC) Obesity, unspecified documented in this encounter Care Teams Retail Business Analyst Relationship Specialty Start Date End Date Dirk Ruiz MD PCP - General 02/05/11 04/15/15 [address] [place], [place] [id number] documented as of this encounter
--- OUTSIDE RECORDS SUMMARY | 2022-08-15 14:57 | XMS_ITS | Encounter Summary ---
:1940 Author Organization [facility] Address [address] [address] Care Team Providers Name Role Phone Dirk Ruiz MD Primary Care Provider Encounter Details Date Type Department Care Team Description 07/10/2008 Office Visit [facility] [place] [address] [address] [place] [address] [phone] Social History Tobacco Use Types Packs/Day Years Used Date Smoking Tobacco: Never Assessed Sex Assigned at Date Recorded Not on file documented as of this encounter Last Filed Vital Signs Vital Sign Reading Time Taken Comments Blood Pressure 122/82 07/10/2008 7:52 AM CDT Pulse 68 07/10/2008 7:52 AM CDT Temperature - - Respiratory Rate - - Oxygen Saturation - - Inhaled Oxygen Concentration - - Weight 95.2 kg (209 lb 15.8 oz) 07/10/2008 7:52 AM C: 9 5.3kg CDT Height 162.6 cm (5' 4) 07/10/2008 7:52 AM C: 162.6cm CDT Body Mass Index 36.04 07/10/2008 7:52 AM CDT documented in this encounter Progress Notes Dirk Ruiz MD - 07/10/2008 12:01 AM CDT Progress Notes signed by Dirk Ruiz MD at 07/14/08 1323 Author: Dirk Ruiz MD Service: (none) Author Type: Physician Filed: 02/25/11 0649 Note Time: 07/10/08 0001 Status: Signed Coal Weigher: Dirk Ruiz MD (Physician) NAME: MICHELE PIZARRO MR#: [id number] ACCT: [id number] VISIT: [id number] DICTATING CLINICIAN: DIRK RUIZ MD CONFIRM #: [id number] LOC: 602 CLINIC PROGRESS NOTE DATE OF VISIT: 07/10/2008 SUBJECTIVE: : 1940. 67-year-old, Michele is here for a physical. She has a history of GERD, hypertension, hyperlipidemia, obesity. Weight stable, and we discussed weight, exercise, GERD, blood pressure and cholesterol, low fat diet. REVIEW OF SYSTEMS: Twelve-point negative. Shots up to date. She does see ANIMAL CARE SUPERVISOR for Paps and she had a D and C, April of this summer. Bone density up to date. Colonoscopy up to date. Nonsmoker, nondrinker. Suggested a shingles vaccine when available and I suggested a PPV-23. She will think about that. Mom liver cancer. Dad had polycystic kidney. She has had a kidney study that was negative. OBJECTIVE: VS: Ht: 5 ft 4 in. Wt: 210, stable. HEENT: Negative. NECK: Supple. Thyroid normal. LUNGS: Clear. COR: Regular. BREASTS: Without masses. No axillary, inguinal, or cervical adenopathy. ABDOMEN: Benign, protuberant. No pain and no CVA pain. EXTREMITIES: No CCE. DTRS symmetric. ASSESSMENT: Physical, age 67. Hypertension. GERD. PLAN: Creatinine, K, UA, cholesterol pending. CC:[id number] C: 07/14/08 08:13 CONFIRM #: [id number] documented in this encounter Plan of Treatment Not on filedocumented as of this encounter Visit Diagnoses Not on filedocumented in this encounter Care Teams Eye Glass Frame Polisher Relationship Specialty Start Date End Date Dirk Ruiz MD PCP - General 02/05/11 04/15/15 [address] [place] [address] documented as of this encounter
--- OUTSIDE RECORDS SUMMARY | 2022-08-15 14:57 | XMS_ITS | Encounter Summary ---
:1940 Author [facility] Address [address] [place] [address] Care Team Providers Name Role Phone Dirk Ruiz MD Primary Care Provider Reason for Visit Reason Comments Other Encounter Details Date Type Department Care Team Description 06/18/2009 Telephone [facility] Medic [place] Other [address] [place] [address] Social History Tobacco Use Types Packs/Day Years Used Date Smoking Tobacco: Never Assessed Sex Assigned at Date Recorded Not on file documented as of this encounter Progress Notes Ashely Galvez RN - 06/18/2009 6:06 PM CDT Phone Note filed by Ashely Galvez RN at 02/24/1148 Author: Ashely Galvez RN Service: (none) Author Type: Registered Nurse Filed: 02/24/11934 Note Time: 06/18/09 180 Status: Signed Jewelry Estimator: Ashely Galvez RN (Registered Nurse) Prescription Refill Please provide enough refills to last until patient's next visit. Comment:- Pharmacy Seq #:-#[phone] Pharmacy Name[facility] Street or City:-[facility] Clinician Name:-Dr. Ruiz Drug Name/Strength:-Atenolol 50 mg tablet Sig: Dose/Route/Freq:-take 1 tablet daily Quantity & Last Fill:- REFILL APPOINTMENT NEEDED Please call patient and schedule appointment within 30 days. Medication has been renewed and faxed to pharmacy for 30 day supply only, per protocol. Comment:-Atenolol refilled x 1 month. Appointment schedule for 07/13/2009. Created on [id number] 6:06pm by ASHELY GALVEZ ILE TECHNICIAN documented in this encounter Plan of Treatment Not on filedocumented as of this encounter Visit Diagnoses Not on filedocumented in this encounter Care Teams Granite Cutter Apprentice Relationship Specialty Start Date End Date Dirk Ruiz MD PCP - General 02/05/11 04/15/15 [address] [place] [address] documented as of this encounter
--- OUTSIDE RECORDS SUMMARY | 2022-08-15 14:57 | XMS_ITS | Encounter Summary ---
:1940 Author Organization [facility] Address [address] [place] [address] Care Team Providers Name Role Phone Dirk Ruiz MD Primary Care Provider Encounter Details Date Type Department Care Team Description 04/30/2008 Office Visit Tom Melendez MD Obstetrics/Gynecolog y [address] [facility] [address] [place] [address] [place] [address] [place] [address] [phone] Social History Tobacco Use Types Packs/Day Years Used Date Smoking Tobacco: Never Assessed Sex Assigned at Date Recorded Not on file documented as of this encounter Last Filed Vital Signs Vital Sign Reading Time Taken Comments Blood Pressure 140/88 04/30/2008 10:56 AM CDT Pulse - - Temperature - - Respiratory Rate - - Oxygen Saturation - - Inhaled Oxygen Concentration - - Weight 90.7 kg (199 lb 15.7 oz) 04/30/2008 10:56 AM C: 90.7kg CDT Height - - Body Mass Index 34.6 03/09/2008 10:49 AM CDT documented in this encounter Progress Notes Tom Adrian MD - 04/30/2008 12:01 AM CDT Progress Notes signed by Tom Adrian MD at 05/12/08 0827 Author: Tom Adrian MD Service: (none) Author Type: Physician Filed: 02/25/11 0510 Note Time: 04/30/08 0001 Status: Signed Plant Tech: Tom Adrian MD (Physician) NAME: MICHELE PIZARRO MR#: [id number] ACCT: [id number] VISIT: [id number] DICTATING CLINICIAN: TOM ADRIAN MD CONFIRM #: [id number] LOC: 612 CLINIC PROGRESS NOTE DATE OF VISIT: 04/30/2008 SUBJECTIVE: CHIEF COMPLAINT: Postop check. HISTORY OF PRESENT ILLNESS: This patient had a hysteroscopy D and C, and has recovered well . Her pathology was benign. OBJECTIVE: ASSESSMENT: PLAN: Follow up as needed only. EWL:[id number] C: 05/01/08 14:52 CONFIRM #: [id number] documented in this encounter Plan of Treatment Not on filedocumented as of this encounter Visit Diagnoses Not on filedocumented in this encounter Care Teams Packaging Clerk Relationship Specialty Start Date End Date Dirk Ruiz MD PCP - General 02/05/11 04/15/15 [address] [place] [address] documented as of this encounter
--- OUTSIDE RECORDS SUMMARY | 2022-08-15 14:57 | XMS_ITS | Encounter Summary ---
:1940 Author Organization [facility] Address [address] [place] [address] Care Team Providers Name Role Phone Dirk Ruiz MD Primary Care Provider Encounter Details Date Type Department Care Team Description 05/26/2010 Office Visit [facility] [place] [address] [place] [address] [place] [address] [phone] Social History Tobacco Use Types Packs/Day Years Used Date Smoking Tobacco: Never Assessed Sex Assigned at Date Recorded Not on file documented as of this encounter Last Filed Vital Signs Vital Sign Reading Time Taken Comments Blood Pressure 170/95 05/26/2010 1:53 PM CDT Pulse 75 05/26/2010 1:53 PM CDT Temperature 37 ??C (98.6 ??F) 05/26/2010 1:53 PM ORAL C: 37. 0 C CDT Respiratory Rate - - Oxygen Saturation - - Inhaled Oxygen Concentration - - Weight 97.5 kg (214 lb 15.9 05/26/2010 1:53 PM C: 97.5k g oz) CDT Height - - Body Mass Index 36.9 07/13/2009 7:38 AM CDT documented in this encounter Progress Notes Wilmer Duran - 05/26/2010 12:01 AM CDT Progress Notes signed by Wilmer Duran MD at 05/26/10 1419 Author: Wilmer Duran MD Service: (none) Author Type: Physician Filed: 02/26/11 0002 Note Time: 05/26/10 0001 Status: Signed Screen Printing Cloth Spreader: Wilmer Duran MD (Physician) PROBLEM: dermographism SUBJECTIVE: The patient felt well but awoke at 3:30 AM noting swelling on the left side of her face and left tongue. Subsequently she has developed hives on the inner upper arms and around pressure points of her waistband and brought line. The facial swelling seemed to improve as soon as she took Benadryl which has helped. He has been pruritic but she is tolerating it well. No wheezing or history of asthma. No GI symptoms. No breathing problems. She has been on her current medications long-term without change. She did eat some unusual foods in the past few days including a veggie burger, broccoli salad and raspberry smoothly and from [employer]. There were no acute reactions to any of these however. She also has been under a lot of situational stress with her ill sister and also an elderly aunt. Medications: Aspirin, atenolol, Caltrate, lisinopril, Zocor. Medications reviewed and updated in LastWord on outpatient medication profile screen today. Allergies/Adverse Drug Reactions: Penicillin, sulfonamide, contrast. Reviewed. See ADR List in LastWord. Review of Systems: Above. OBJECTIVE: Vital Signs: Reviewed in flowsheet charting of LastWord. Pleasant, cooperative, no acute distress. BP 170/95 pulse 75 regular. Temperature 98.6 by mouth. Weight 215 pounds. She has moderate-sized urticaria on the inner upper arms, linear urticaria along the waistband and brought line. She has residual swelling around the left cheek and left upper and lower lateral lip which she states is dramatically improved. Intraoral exam reveals no objective tongue swelling or other intra-oral abnormality. No cervical adenopathy. Lungs clear bilaterally. Heart S1-S2 regular rate and rhythm no extra sound. A tongue depressor stroke across the right paralumbar muscle region produced linear urticaria. ASSESSMENT: Dermographism PLAN: We discussed impressions. She does not recall a recent viral illness or antibiotic treatment at that situational stress. We talked about possible relation to one of her medications such as lisinopril or atenolol but I think that is not clear and she has responded well to antihistamine. We therefore agreed to try OTC cetirizine 10 mg q.d. for 2 weeks to start with no more than a single extra dose of Benadryl at bedtime if needed and she found the Benadryl was sedating. She will also return to her previous standard diet and if doing well she may try stopping antihistamine in 2 weeks recheck and p.r.n. If problem persists or recurs she will followup with her regular physician, Dr. Ruiz to further address. Finally, noting her elevated BP reading today, I recommended she obtain a BP reading within the next week or 2 and if it remains elevated above her previous readings she will followup with Dr. Ruiz. *SH~[id number] documented in this encounter Plan of Treatment Not on filedocumented as of this encounter Visit Diagnoses Not on filedocumented in this encounter Care Teams Offshore Wind Operations Manager Relationship Specialty Start Date End Date Dirk Ruiz MD PCP - General 02/05/11 04/15/15 [address] [place] [address] documented as of this encounter
--- OUTSIDE RECORDS SUMMARY | 2022-08-15 14:57 | XMS_ITS | Encounter Summary ---
:1940 Author Organization [facility] Address [address] [place] [address] Care Team Providers Name Role Phone Dirk Ruiz MD Primary Care Provider Encounter Details Date Type Department Care Team Description 03/09/2008 Office Visit [facility] [place] [address] [address] [place] [address] [phone] Social History Tobacco Use Types Packs/Day Years Used Date Smoking Tobacco: Never Assessed Sex Assigned at Date Recorded Not on file documented as of this encounter Progress Notes Dirk Ruiz MD - 03/09/2008 12:01 AM CDT Progress Notes signed by Dirk Ruiz MD at 04/13/08 1041 Author: Dirk Ruiz MD Service: (none) Author Type: Physician Filed: 02/25/11 0351 Note Time: 03/09/08 0001 Status: Signed Trading Assistant: Dirk Ruiz MD (Physician) NAME: MICHELE PIZARRO MR#: [id number] ACCT: [id number] VISIT: [id number] DICTATING CLINICIAN: DIRK RUIZ MD JOB: [id number] LOC: 602 CLINIC PROGRESS NOTE DATE OF VISIT: 03/09/2008 SUBJECTIVE: : 1940. A 67-year-old. Michele is here for a preop. She has got some postmenopausal bleeding. Please refer to attached for her results. She is a good candidate for surgery except for her EKG which showed some inferior ST-T changes. No history of coronary artery disease. We are going to run a stress test. If that is normal, will go on from there. Her vital signs were stable. REVIEW OF SYSTEMS: She was having a negative review of systems. Does have a history of hypertension, hyperlipidemia, controlled with meds atenolol, Zocor, lisinopril. FAMILY HISTORY: Reviewed. See attached. OBJECTIVE: VS: Stable. ASSESSMENT: See above. PLAN: She will stop her aspirin 1 week prior to surgery, and I will contact her with the stress results. A recent colonoscopy normal. This was a 40-minute visit, 25 minutes in counseling on the EKG, the preop, blood pressure, and cholesterol. She had questions about exercise and her EKG and stress test. CC:[id number] C: 03/11/08 12:10 DOCUMENT: [id number] documented in this encounter Plan of Treatment Not on filedocumented as of this encounter Visit Diagnoses Not on filedocumented in this encounter Care Teams Loom Cleaner Relationship Specialty Start Date End Date Dirk Ruiz MD PCP - General 02/05/11 04/15/15 [address] [place] [address] documented as of this encounter
--- OUTSIDE RECORDS SUMMARY | 2022-08-15 14:57 | XMS_ITS | Encounter Summary ---
:1940 Author Organization [facility] Address [address] [facility] [place] [address] Care Team Providers Name Role Phone Dirk Ruiz MD Primary Care Provider Encounter Details Date Type Department Care Team Description 07/10/2008 PN Conversion Only LEE CONVERSION Dirk Ruiz, [address] [address] [facility] MD [address] [place] [address] [place] [address] Social History Tobacco Use Types Packs/Day Years Used Date Smoking Tobacco: Never Assessed Sex Assigned at Date Recorded Not on file documented as of this encounter Plan of Treatment Not on filedocumented as of this encounter Procedures Procedure Name Priority Date/Time Associated Comments Diagnosis URINALYSIS ROUTINE, Routine 07/10/2008 8:25 AM Re sults for this MICRO/CULTURE IF POS CDT procedu re are in the results section. URINALYSIS Routine 07/10/2008 8:25 AM Results f or this MICROSCOPIC CDT procedure are i n the results section. LIPID PANEL AND Routine 07/10/2008 8:25 AM Result s for this DIRECT LDL(IF NEEDED) CDT proced ure are in the results section. CREATININE / GFR Routine 07/10/2008 8:25 AM Resul ts for this CDT procedure are i n the results section. URINE CULTURE Routine 07/10/2008 8:25 AM Results for this CDT procedure are i n the results section. AST Routine 07/10/2008 8:25 AM Results f or this CDT procedure are i n the results section. POTASSIUM Routine 07/10/2008 8:25 AM Results f or this CDT procedure are i n the results section. documented in this encounter Results Urine Culture (07/10/2008 8:25 AM CDT) Analysis Performed At Patho logist Time Signature Urine Culture SEE TEXT HP CONVERSION Comment: Patient: MICHELE PIZARRO I Culture, Urine ?Collected: ??[id number] ??[id number] Source: Clean Ca ?Processed: ??[id number] ??[id number] Final Report ------ ?[id number] ??[id number] <10,000 CFU/mL mixed gram positive organ isms No further workup Specimen (Source) Anatomical Collection Method Collection Time Re ceived Time Location / / Volume Laterality 07/10/2008 8:25 AM CDT Dirk Ruiz MD LAB_1 Performing Organization Address City/State/ZIP Code Phon e Number HP CONVERSION AST (07/10/2008 8:25 AM CDT) Patholo gist Method Time Signature Aspartate 28 0 - 45 HP CONVERSION Aminotransferase U/L Specimen (Source) Anatomical Collection Method Collection Time Re ceived Time Location / / Volume Laterality 07/10/2008 8:25 AM CDT Dirk Ruiz MD LAB_1 Performing Organization Address City/[facility]/ZIP Code Phon e Number HP CONVERSION Creatinine / GFR (07/10/2008 8:25 AM CDT) P athologist Signature Creatinine 0.9 0.4 - 1.3 HP CONVERSION Serum mg/dL Est GFR >60 >60 HP CONVERSION Am Comment: -[place] Citizen and Pxk-Mhtrtog-Gpbrbue n reference range units: mL/min/1.73m2 Normal>60, moderate decrease 30 - 59, se rosalinda decrease 15 - 29, renal failure <15 mL/min/1.73 m2 Est GFR Non-Afr Am >60 >60 HP CONVERSI ON Specimen (Source) Anatomical Collection Method Collection Time Re ceived Time Location / / Volume Laterality 07/10/2008 8:25 AM CDT Dirk Ruiz MD LAB_1 Performing Organization Address City/State/ZIP Code Phon e Number HP CONVERSION Potassium (07/10/2008 8:25 AM CDT) athologist Signature Potassium 4.2 3.5 - 5.2 HP CONVERSION mEq/L Specimen (Source) Anatomical Collection Method Collection Time Re ceived Time Location / / Volume Laterality 07/10/2008 8:25 AM CDT Dirk Ruiz MD LAB_1 Performing Organization Address City/State/ZIP Code Phon e Number HP CONVERSION (ABNORMAL) Lipid Panel and Direct LDL(If Needed) (07/10/2008 8:25 AM CDT) [facility] Method Time Signature Length Of Fast 12.0 Hours HP CONVERSION Cholesterol/HDL 4.1 No normal HP CONVERSION Ratio Screen range Cholesterol 180 <200 mg/dL HP CONVERSION HDL Cholesterol 44 >40 mg/dL HP CONVERSION Triglycerides 187 (H) 0 - 149 HP CONVERSION mg/dL LDL Calculated 99 0 - 130 HP CONVERSION mg/dL Comment: Specimen (Source) Anatomical Collection Method Collection Time Re ceived Time Location / / Volume Laterality 07/10/2008 8:25 AM CDT iDrk Ruiz MD LAB_1 Performing Organization Address City/State/ZIP Code Phon e Number HP CONVERSION (ABNORMAL) Urinalysis Routine, Micro/Culture if Pos (07/10/2008 8:25 AM CDT) [facility] Method Time Signature Turbidity Clear No normal HP CONVERSION range pH Urine 6.0 4.5 - 7.5 HP CONVERSION Protein Urine Negative Neg-Trac HP CONVERSION Glucose, Negative Neg-Trac HP CONVERSION Qualitative U Ketones Negative Negative HP CONVERSION U BILI Negative Negative HP CONVERSION Blood Urine Trace (A) Negative HP CONVERSION Nitrite Urine Negative Negative HP CONVERSION Leukocyte Trace (A) Negative HP CONVERSION Esterase Urine Urobilinogen Negative 0.2 - 1.0 HP CONVERSION Urine U Specific 1.025 1.005 - 25 HP CONVERSION [place] Specimen (Source) Anatomical Collection Method Collection Time Re ceived Time Location / / Volume Laterality 07/10/2008 8:25 AM CDT Dirk Ruiz MD LAB_1 Performing Organization Address City/[facility] Phon e Number HP CONVERSION (ABNORMAL) Urinalysis Microscopic (07/10/2008 8:25 AM CDT) [facility] Method Time Signature White Blood 5-9/HPF 0 - 3 HP CONVERSION Cells Urine (A) Comment: Urine culture has been ordered per r eflex test protocol. Red Blood Cells Urine 0-2/HPF 0 - 2 HP CONVE RSION Comment: Urine culture has been ordered per r eflex test protocol. Specimen (Source) Anatomical Collection Method Collection Time Re ceived Time Location / / Volume Laterality 07/10/2008 8:25 AM CDT Dirk Ruiz MD LAB_1 Performing Organization Address City/[facility] Phon e Number HP CONVERSION documented in this encounter Visit Diagnoses Not on filedocumented in this encounter Care Teams Composite Laminator Relationship Specialty Start Date End Date Dirk Ruiz MD PCP - General 02/05/11 04/15/15 [address] [place] [address] documented as of this encounter
--- OUTSIDE RECORDS SUMMARY | 2022-08-15 14:58 | XMS_ITS | Encounter Summary ---
:1940 Author Organization [facility] Address [address] [place] [address] Care Team Providers Name Role Phone Dirk Ruiz MD Primary Care Provider Encounter Details Date Type Department Care Team Description 07/12/2005 PN Conversion Only LEE CONVERSION Dirk Ruiz, [address] [facility] MD [address] [place] [address] [place] [address] Social History Tobacco Use Types Packs/Day Years Used Date Smoking Tobacco: Never Assessed Sex Assigned at Date Recorded Not on file documented as of this encounter Plan of Treatment Not on filedocumented as of this encounter Procedures Procedure Name Priority Date/Time Associated Comments Diagnosis URINALYSIS COMPLETE Routine 07/12/2005 12:06 PM R esults for this CDT procedure are i n the results section. LIPID PANEL AND Routine 07/12/2005 12:06 PM Resul ts for this DIRECT LDL(IF CDT procedure are in NEEDED) the results section. CREATININE / GFR Routine 07/12/2005 12:06 PM Resu lts for this CDT procedure are i n the results section. POTASSIUM Routine 07/12/2005 12:06 PM Results for this CDT procedure are i n the results section. documented in this encounter Results Creatinine / GFR (07/12/2005 12:06 PM CDT) P athologist Signature Creatinine 0.8 0.5 - 1.5 HP CONVERSION Serum mg/dL Specimen (Source) Anatomical Collection Method Collection Time Re ceived Time Location / / Volume Laterality 07/12/2005 12:06 PM CDT Dirk Ruiz MD LAB_1 Performing Organization Address City/State/ZIP Code Phon e Number HP CONVERSION Potassium (07/12/2005 12:06 PM CDT) athologist Signature Potassium 4.4 3.5 - 5.2 HP CONVERSION meq/L Specimen (Source) Anatomical Collection Method Collection Time Re ceived Time Location / / Volume Laterality 07/12/2005 12:06 PM CDT Dirk Ruiz MD LAB_1 Performing Organization Address City/State/ZIP Code Phon e Number HP CONVERSION (ABNORMAL) Lipid Panel and Direct LDL(If Needed) (07/12/2005 12:06 PM CDT) [facility] Method Time Signature Cholesterol/HDL 6.5 No normal HP CONVERSION Ratio Screen range Cholesterol 214 (H) <200 mg/dL HP CONVERSION Comment: Borderline high: 200-239 mg/dL High risk: >240 mg/dL HDL Cholesterol 33 (L) 40 - 60 mg/dL HP CONVERS ION Comment: Desirable: >39 mg/dL Higher risk: <40 mg/dL Triglycerides 208 (H) 0 - 149 mg/dL HP CONVERSIO N Comment: Borderline high: 150-199 mg/dL High risk: 200-499 mg/dL Very high risk: 500 mg/dL or greater LDL Calculated 139 (H) 0 - 130 mg/dL HP CONVERSI ON Comment: Desirable: <130 mg/dL (<100 if diabetes or coronary heart disease) Borderline high: 130-159 mg/dL High risk: >159 mg/dL Specimen (Source) Anatomical Collection Method Collection Time Re ceived Time Location / / Volume Laterality 07/12/2005 12:06 PM CDT Dirk Ruiz MD LAB_1 Performing Organization Address City/State/ZIP Code Phon e Number HP CONVERSION (ABNORMAL) Urinalysis Complete (07/12/2005 12:06 PM CDT) [facility] Method Time Signature Glucose, Negative Neg-Trac HP CONVERSION Qualitative U Protein Urine Negative Neg-Trac HP CONVERSION Ketones Negative Negative HP CONVERSION U BILI Negative Negative HP CONVERSION U Specific 1.010 1.005 - 25 HP CONVERSION [place] Blood Urine Negative Negative HP CONVERSION pH Urine 6.5 4.5 - 7.5 HP CONVERSION Urobilinogen Negative 0.2 - 1.0 HP CONVERSION Urine Nitrite Urine Negative Negative HP CONVERSION Leukocyte Negative Negative HP CONVERSION Esterase Urine White Blood 3-4/HPF 0 - 3 HP CONVERSION Cells Urine Red Blood Cells 0-2/HPF 0 - 2 HP CONVERSION Urine Bacteria Urine Occassnl None HP CONVERSION (A) Epithelial Cells Few Few /HPF HP CONVERSION Specimen (Source) Anatomical Collection Method Collection Time Re ceived Time Location / / Volume Laterality 07/12/2005 12:06 PM CDT Dirk Ruiz MD LAB_1 Performing Organization Address City/State/[facility] Code Phon e Number HP CONVERSION documented in this encounter Visit Diagnoses Not on filedocumented in this encounter Care Teams Rope Laying Machine Operator Relationship Specialty Start Date End Date Dirk Ruiz MD PCP - General 02/05/11 04/15/15 [address] [place] [address] documented as of this encounter
--- OUTSIDE RECORDS SUMMARY | 2022-08-15 14:58 | XMS_ITS | Encounter Summary ---
:1940 Author Organization [facility] Address [address] [address] Care Team Providers Name Role Phone Dirk Ruiz MD Primary Care Provider Encounter Details Date Type Department Care Team Description 07/12/2005 Office Visit [facility] [place] [address] [address] [place] [address] [phone] Social History Tobacco Use Types Packs/Day Years Used Date Smoking Tobacco: Never Assessed Sex Assigned at Date Recorded Not on file documented as of this encounter Last Filed Vital Signs Vital Sign Reading Time Taken Comments Blood Pressure 148/98 07/12/2005 11:32 AM CDT Pulse 64 07/12/2005 11:32 AM CDT Temperature - - Respiratory Rate - - Oxygen Saturation - - Inhaled Oxygen Concentration - - Weight 86.2 kg (189 lb 15.9 oz) 07/12/2005 11:32 AM C: 86.2kg CDT Height - - Body Mass Index - - documented in this encounter Progress Notes Dirk Ruiz MD - 07/12/2005 12:01 AM CDT Progress Notes signed by Dirk Ruiz MD at 08/03/05 1539 Author: Dirk Ruiz MD Service: (none) Author Type: Physician Filed: 02/24/11 0648 Note Time: 07/12/05 0001 Status: Signed Professional Housing Consultant: Dirk Ruiz MD (Physician) NAME: MICHELE PIZARRO MR: [id number] ACCT: [id number] VISIT: [id number] DICTATING CLINICIAN: DIRK RUIZ MD JOB: [id number] CLINIC PROGRESS NOTE DATE OF VISIT: 07/12/2005 SUBJECTIVE: : 1940. A 64-year-old; Michele is here for heartburn. Her sister has this, told her to take Prilosec. It has been about two weeks, and it has been helping. Was mostly epigastric. Now it is resolved. She has had no change in bowel habits. She is also here for hyperlipidemia and hypertension. She needs refills of her meds, atenolol 50, lisinopril 20, reviewed Last[facility]. Her last cholesterol was 212 and an HDL 37, LDL 140, and that was one year ago. BPs have been less than 130/80. Today it is 146/96, but repeat was 140/90. ADR/ALLERGIES: SHE IS ALLERGIC TO PENICILLIN AND SULFA. Mom, liver cancer. Dad, polycystic kidney. Sister is a nurse and healthy. OBJECTIVE: VS: BP1: 146/96. BP2: 140/90. Wt: Down from 205 to 190; I complimented her. HEENT: Exam was negative. Thyroid normal. No carotid bruits. LUNGS: Clear. COR: Regular, without murmur. ABDOMEN: Protuberant. No masses. No bruits. EXTREMITIES: No CCE. She said her Paps are up to date and mammograms. I have ordered a creatinine, UA, K, cholesterol, and I will contact her with results. ASSESSMENT: Hypertension. Hyperlipidemia. GERD. PLAN: One of the GERD handouts was reviewed. She appears to be responding to Prilosec. Suggested taking this four weeks and then backing off to an H2 jackie, which I discussed. Also reviewed the GERD suggestions. Follow up one month. CC:[id number] C: 07/13/05 16:49 DOCUMENT: [id number] documented in this encounter Plan of Treatment Not on filedocumented as of this encounter Visit Diagnoses Not on filedocumented in this encounter Care Teams Dry Curer Relationship Specialty Start Date End Date Dirk Ruiz MD PCP - General 02/05/11 04/15/15 [address] [place], [place] [id number] documented as of this encounter
--- OUTSIDE RECORDS SUMMARY | 2022-08-15 14:58 | XMS_ITS | Encounter Summary ---
:1940 Author [facility] Address [address] [place] [address] Care Team Providers Name Role Phone Dirk Ruiz MD Primary Care Provider Encounter Details Date Type Department Care Team Description 03/04/2008 PN Conversion Only TEMPLE CONVERSION Social History Tobacco Use Types Packs/Day Years Used Date Smoking Tobacco: Never Assessed Sex Assigned at Date Recorded Not on file documented as of this encounter Plan of Treatment Not on filedocumented as of this encounter Visit Diagnoses Not on filedocumented in this encounter Care Teams Rail Operator Relationship Specialty Start Date End Date Dirk Ruiz MD PCP - General 02/05/11 04/15/15 [address], [place] [address] documented as of this encounter
--- OUTSIDE RECORDS SUMMARY | 2022-08-15 14:58 | XMS_ITS | Encounter Summary ---
:1940 Author Organization [facility] Address [address] [place] [address] Care Team Providers Name Role Phone Dirk Ruiz MD Primary Care Provider Encounter Details Date Type Department Care Team Description 07/04/2006 PN Conversion Only LEE CONVERSION Dirk Ruiz, [address], [address] [place] [address] [place] [address] Social History Tobacco Use Types Packs/Day Years Used Date Smoking Tobacco: Never Assessed Sex Assigned at Date Recorded Not on file documented as of this encounter Plan of Treatment Not on filedocumented as of this encounter Procedures Procedure Name Priority Date/Time Associated Diagnosis Comme nts LIPID PANEL AND Routine 07/04/2006 8:41 AM Result s for this DIRECT LDL(IF CDT procedure are in NEEDED) the results section. documented in this encounter Results (ABNORMAL) Lipid Panel and Direct LDL(If Needed) (07/04/2006 8:41 AM CDT) [facility] gist Method Time Signature Cholesterol/HDL 5.1 No normal HP CONVERSION Ratio Screen range Cholesterol 174 <200 mg/dL HP CONVERSION HDL Cholesterol 34 (L) 40 - 60 HP CONVERSION mg/dL Triglycerides 318 (H) 0 - 149 HP CONVERSION mg/dL LDL Calculated 76 0 - 130 HP CONVERSION mg/dL Comment: Specimen (Source) Anatomical Collection Method Collection Time Re ceived Time Location / / Volume Laterality 07/04/2006 8:41 AM CDT Dirk Ruiz MD LAB_1 Performing Organization Address City/State/ZIP Code Phon e Number HP CONVERSION documented in this encounter Visit Diagnoses Not on filedocumented in this encounter Care Teams Resin Painter Relationship Specialty Start Date End Date Dirk Ruiz MD PCP - General 02/05/11 04/15/15 [address] [place], [place] [id number] documented as of this encounter
--- OUTSIDE RECORDS SUMMARY | 2022-08-15 14:58 | XMS_ITS | Encounter Summary ---
:1940 Author Organization [facility] Address [address] [facility] [place] [address] Care Team Providers Name Role Phone Dirk Ruiz MD Primary Care Provider Encounter Details Date Type Department Care Team Description 04/30/2006 PN Conversion Only LEE CONVERSION Dirk Ruiz, [address] [facility] MD [address] [place] [address] [place] [address] Social History Tobacco Use Types Packs/Day Years Used Date Smoking Tobacco: Never Assessed Sex Assigned at Date Recorded Not on file documented as of this encounter Plan of Treatment Not on filedocumented as of this encounter Procedures Procedure Name Priority Date/Time Associated Comments Diagnosis ANATOMICAL PATH Routine 04/30/2006 1:57 PM Result s for this LIQUID BASED CDT procedure are i n the results section. URINALYSIS Routine 04/30/2006 8:34 AM Results f or this ROUTINE(MICRO IF POS) CDT proced ure are in the results section. URINALYSIS Routine 04/30/2006 8:34 AM Results f or this MICROSCOPIC CDT procedure are i n the results section. LIPID PANEL AND Routine 04/30/2006 8:34 AM Result s for this DIRECT LDL(IF NEEDED) CDT proced ure are in the results section. CREATININE / GFR Routine 04/30/2006 8:34 AM Resul ts for this CDT procedure are i n the results section. AST Routine 04/30/2006 8:34 AM Results f or this CDT procedure are i n the results section. POTASSIUM Routine 04/30/2006 8:34 AM Results f or this CDT procedure are i n the results section. documented in this encounter Results Pap Smear (04/30/2006 1:57 PM CDT) [facility] Method Time Signature PAP Smear SEE TEXT No normal HP CONVERSION Liquid Based range Comment: Patient: MICHELE PIZARRO I ? CERVICAL CYTOLOGY REPORT Pathology # ??[id number] ?Date Obtained: ? Date Received: CYTOLOGIC IMPRESSION: Negative for intraepithelial lesion or m alignancy. Verified 05/10/06 by: ??[facility] ?(electronic signature) ? DEEP TIONAL DATA LMP: ?ELECTRICAL CONTROLS TECHNICIAN CLINICAL HIST LIQUID BASED PAP CERVICAL SPECIMEN ADEQUACY: ?? Satisfactory. ENDOCERVICAL CELLS: ??Absent; patient is post-menopausal. Specimen (Source) Anatomical Collection Method Collection Time Re ceived Time Location / / Volume Laterality 04/30/2006 1:57 PM CDT Dirk Ruiz MD LAB_1 Performing Organization Address City/State/ZIP Code Phon e Number HP CONVERSION AST (04/30/2006 8:34 AM CDT) [facility] Method Time Signature Aspartate 22 0 - 45 HP CONVERSION Aminotransferase U/L Specimen (Source) Anatomical Collection Method Collection Time Re ceived Time Location / / Volume Laterality 04/30/2006 8:34 AM CDT Dirk Ruiz MD LAB_1 Performing Organization Address City/State/ZIP Code Phon e Number HP CONVERSION Creatinine / GFR (04/30/2006 8:34 AM CDT) athologist Signature Creatinine 1.1 0.5 - 1.5 HP CONVERSION Serum mg/dL Specimen (Source) Anatomical Collection Method Collection Time Re ceived Time Location / / Volume Laterality 04/30/2006 8:34 AM CDT Dirk Ruiz MD LAB_1 Performing Organization Address City/[facility]/ZIP Code Phon e Number HP CONVERSION Potassium (04/30/2006 8:34 AM CDT) athologist Signature Potassium 4.9 3.5 - 5.2 HP CONVERSION meq/L Specimen (Source) Anatomical Collection Method Collection Time Re ceived Time Location / / Volume Laterality 04/30/2006 8:34 AM CDT Dirk Ruiz MD LAB_1 Performing Organization Address City/State/ZIP Code Phon e Number HP CONVERSION (ABNORMAL) Lipid Panel and Direct LDL(If Needed) (04/30/2006 8:34 AM CDT) [facility] [employer] Method Time Signature Cholesterol/HDL 5.7 No normal HP CONVERSION Ratio Screen range Cholesterol 264 (H) <200 mg/dL HP CONVERSION HDL Cholesterol 46 40 - 60 HP CONVERSION mg/dL Triglycerides 226 (H) 0 - 149 HP CONVERSION mg/dL LDL Calculated 173 (H) 0 - 130 HP CONVERSION mg/dL Comment: Specimen (Source) Anatomical Collection Method Collection Time Re ceived Time Location / / Volume Laterality 04/30/2006 8:34 AM CDT Dirk Ruiz MD LAB_1 Performing Organization Address City/State/ZIP Code Phon e Number HP CONVERSION (ABNORMAL) Urinalysis Routine(Micro If Pos) (04/30/2006 8:34 AM CDT) [facility] gist Method Time Signature Turbidity Clear No normal HP CONVERSION range pH Urine 5.0 4.5 - 7.5 HP CONVERSION Protein Urine Negative Neg-Trac HP CONVERSION Glucose, Negative Neg-Trac HP CONVERSION Qualitative U Ketones Negative Negative HP CONVERSION U BILI Negative Negative HP CONVERSION Blood Urine Small (A) Negative HP CONVERSION Nitrite Urine Negative Negative HP CONVERSION Leukocyte Negative Negative HP CONVERSION Esterase Urine Urobilinogen Negative 0.2 - 1.0 HP CONVERSION Urine U Specific >=1.030 1.005 - 25 HP CONVERSION Burton Specimen (Source) Anatomical Collection Method Collection Time Re ceived Time Location / / Volume Laterality 04/30/2006 8:34 AM CDT Dirk Ruiz MD LAB_1 Performing Organization Address City/[facility] Code Phon e Number HP CONVERSION (ABNORMAL) Urinalysis Microscopic (04/30/2006 8:34 AM CDT) [facility] gist Method Time Signature White Blood 3-4/HPF 0 - 3 HP CONVERSION Cells Urine Red Blood Cells 0-2/HPF 0 - 2 HP CONVERSION Urine Bacteria Urine Few (A) None HP CONVERSION Urine Mucus Moderate None HP CONVERSION Epithelial Few Few /HPF HP CONVERSION Cells Specimen (Source) Anatomical Collection Method Collection Time Re ceived Time Location / / Volume Laterality 04/30/2006 8:34 AM CDT Dirk Ruiz MD LAB_1 Performing Organization Address [facility] Phon e Number HP CONVERSION documented in this encounter Visit Diagnoses Not on filedocumented in this encounter Care Teams Contemporary Or Modern Dancer Relationship Specialty Start Date End Date Dirk Ruiz MD PCP - General 02/05/11 04/15/15 [address] [place] [address] documented as of this encounter
--- OUTSIDE RECORDS SUMMARY | 2022-08-15 14:58 | XMS_ITS | Encounter Summary ---
:1940 Author Organization [facility] Address [address], [place] [address] Care Team Providers Name Role Phone Dirk Ruiz MD Primary Care Provider Encounter Details Date Type Department Care Team Description 02/25/2008 Office Visit Tom Melendez MD Obstetrics/Gynecolog y [address] [facility] [id number] [place] [address] [place] [address] [place] [address] [phone] Social History Tobacco Use Types Packs/Day Years Used Date Smoking Tobacco: Never Assessed Sex Assigned at Date Recorded Not on file documented as of this encounter Last Filed Vital Signs Vital Sign Reading Time Taken Comments Blood Pressure 112/74 02/25/2008 8:55 AM CDT Pulse - - Temperature - - Respiratory Rate - - Oxygen Saturation - - Inhaled Oxygen Concentration - - Weight 93.4 kg (206 lb) 02/25/2008 8:55 AM CDT C: 93.4k g Height - - Body Mass Index 35.36 05/09/2007 10:48 AM CDT documented in this encounter Progress Notes Tom Adrian MD - 02/25/2008 12:01 AM CDT Progress Notes signed by Tom Adrian MD at 03/02/08 1532 Author: Tom Adrian MD Service: (none) Author Type: Physician Filed: 02/25/11 0330 Note Time: 02/25/08 0001 Status: Signed Stone Rougher: Tom Adrian MD (Physician) NAME: MICHELE PIZARRO MR#: [id number] ACCT: [id number] VISIT: [id number] DICTATING CLINICIAN: TOM ADRIAN MD JOB: [id number] LOC: 612 CLINIC PROGRESS NOTE DATE OF VISIT: 02/25/2008 SUBJECTIVE: CHIEF COMPLAINT: Postmenopausal bleeding. PATIENT PROFILE: A 67-year-old white nulligravida. MEDICATIONS: Lisinopril, atenolol, Zocor and aspirin. ADR/ALLERGIES: PENICILLIN AND SULFA. HISTORY OF PRESENT ILLNESS: This patient was asked to see us for an opinion by Dr. Naun Moon of the primary care department. She is a healthy 67-year-old who has taken no hormones for a number of years. She presented with a week to 10 days of vaginal bleeding, which was enough to use a tampon but not to soak through them. Ultrasound has revealed a thickened endometrium with some polypoid structure of benign appearance in the fundal portion of the cavity. PAST MEDICAL HISTORY: Consists of hypertension, hyperlipidemia, gastroesophageal reflux disease and a bit of obesity. She has not had major surgery. FAMILY HISTORY: Basically negative for any relevant findings. SOCIAL HISTORY: Basically negative for any relevant findings. REVIEW OF SYSTEMS: Except for the genitourinary findings in history of present illness, 12 system review is negative. OBJECTIVE: VS: BP: 112/74. Wt: 206. Well-nourished, well-developed white female in no acute distress. PELVIC: External clear. Vagina well supported. No discharge. Cervix closed without pathology. Uterus small, mobile, anteverted, anteflexed and nontender. Adnexa clear. Rectal exam is not done. An attempt was done to cannulate her cervix but it is pinpoint and tightly closed. A uterine os finder could not enter the endocervical canal without causing her undo pain. In view of the fact that she has the polypoid structure in the fundal portion of her endometrial cavity, better test would actually have been a hysteroscopy and, therefore, in view of the fact that we cannot get an endometrial biopsy here in the clinic, she will be schedule for hysteroscopy and endometrial biopsy, possible curettage at her convenience. ASSESSMENT: PLAN: See above. CC: NAUN MOON MD EWL:[id number] C: 02/26/08 08:31 DOCUMENT: [id number] documented in this encounter Plan of Treatment Not on filedocumented as of this encounter Visit Diagnoses Not on filedocumented in this encounter Care Teams Nursing Home Assistant Administrator Relationship Specialty Start Date End Date Dirk Ruiz MD PCP - General 02/05/11 04/15/15 [address] [place] [address] documented as of this encounter
--- OUTSIDE RECORDS SUMMARY | 2022-08-15 14:58 | XMS_ITS | Encounter Summary ---
:1940 Author Organization [facility] Address [address], [place] [address] Care Team Providers Name Role Phone Dirk Ruiz MD Primary Care Provider Encounter Details Date Type Department Care Team Description 05/09/2007 Office Visit [facility] [place] [address] [address] [place] [address] [phone] Social History Tobacco Use Types Packs/Day Years Used Date Smoking Tobacco: Never Assessed Sex Assigned at Date Recorded Not on file documented as of this encounter Last Filed Vital Signs Vital Sign Reading Time Taken Comments Blood Pressure 118/82 05/09/2007 10:48 AM CDT Pulse 60 05/09/2007 10:48 AM CDT Temperature - - Respiratory Rate - - Oxygen Saturation - - Inhaled Oxygen Concentration - - Weight 90.7 kg (199 lb 15.7 oz) 05/09/2007 10:48 AM C: 90.7kg CDT Height 162.6 cm (5' 4) 05/09/2007 10:48 AM C: 162.6cm CDT Body Mass Index 34.33 05/09/2007 10:48 AM CDT documented in this encounter Progress Notes Dirk Ruiz MD - 05/09/2007 12:01 AM CDT Progress Notes signed by Dirk Ruiz MD at 05/20/07 0816 Author: Dirk Ruiz MD Service: (none) Author Type: Physician Filed: 02/24/112011 Note Time: 05/09/07 0001 Status: Signed Tower Technician: Dirk Ruiz MD (Physician) NAME: MICHELE PIZARRO MR#: [id number] ACCT: [id number] VISIT: [id number] DICTATING CLINICIAN: DIRK RUIZ MD JOB: [id number] LOC: 602 CLINIC PROGRESS NOTE DATE OF VISIT: 05/09/2007 SUBJECTIVE: : 1940. [age] year old Michele is here for a physical. It has been about a year. She spends love in [place]. She likes to paint. She is retired from [employer] work and [employer]. She has a mammogram scheduled. She has had a bone density. She has not had a colon test since 1997 when she had a flex. She agrees to schedule a colonoscopy, explained that this is important. We discussed carbs. She has high triglycerides, last year over 300 and she admits that she eats too much bread and crackers, but she is cutting back and trying to get the weight down. Discussed exercise, low cholesterol diet and low carb diet. Refilled Zocor for hyperlipidemia, Atenolol and Lisinopril for hypertension. Discussed GERD and [id number] agents. She is denying shortness of breath, GI or symptoms, chest pain. The rest of the review of systems is negative. She has had surgery on bunion and D and C. Her mom had cancer of the liver. Dad polycystic kidney disorder and patient has had an ultrasound of the kidneys that was negative. OBJECTIVE: VS: Stable. Ht: 5 ft, 2 in. Wt: 200. HEENT: Negative. NECK: Supple. Thyroid normal. LUNGS: Clear. COR: Regular without murmur or gallop. ABDOMEN: Benign. Abdomen protuberant, but nontender. No breast masses. No axillary, inguinal or cervical adenopathy. Normal pulses distally. No edema. SKIN: Negative. ASSESSMENT: Physical age 66. PLAN: Colonoscopy. Cholesterol, creatinine, UA, AST, K and a TSH are pending. She has had some fatigue and therefore the thyroid study. I refilled her Zocor, Atenolol and Lisinopril. She will continue with aspirin 81 and calcium plus D and weightbearing exercise. CC:[id number] C: 05/09/07 16:10 DOCUMENT: [id number] documented in this encounter Plan of Treatment Not on filedocumented as of this encounter Visit Diagnoses Not on filedocumented in this encounter Care Teams Auto Body Repair Estimator Relationship Specialty Start Date End Date Dirk Ruiz MD PCP - General 02/05/11 04/15/15 [address] [place] [address] documented as of this encounter
--- OUTSIDE RECORDS SUMMARY | 2022-08-15 14:58 | XMS_ITS | Encounter Summary ---
:1940 Author Organization [facility] Address [address] [facility] [place] [address] Care Team Providers Name Role Phone Dirk Ruiz MD Primary Care Provider Encounter Details Date Type Department Care Team Description 02/20/2008 PN Conversion Only [facility] [address] [place], [place] [address] Social History Tobacco Use Types Packs/Day Years Used Date Smoking Tobacco: Never Assessed Sex Assigned at Date Recorded Not on file documented as of this encounter Plan of Treatment Not on filedocumented as of this encounter Procedures Procedure Name Priority Date/Time Associated Diagnosis Comme nts US PELVIC COMPLETE Routine 02/20/2008 12:21 PM Re sults for this W EV CDT procedure are i n the results section. documented in this encounter Results US Pelvic Complete W EV (02/20/2008 12:21 PM CDT) Anatomical Region Laterality Modality Pelvis Other Specimen (Source) Anatomical Location Collection Method / Collectio n Time Received Time / Laterality Volume Impressions 02/20/2008 12:21 PM CDT : ??Abnormally thickened endometrium with possible focal hyperechoic polyp or other endometrial p rocess. ??Tissue sampling is suggested for further evaluation. Bc- [id number] Dictating CATA SALAZAR Radiologist Narrative 02/20/2008 12:21 PM CDT CLINICAL HISTORY: ??67-year-old female with postmenopausal bleeding. FINDINGS: ??Both transabdominal and downs svaginal scanning were performed. ??The uterus measures 6.1 x 3 .5 x 4.4 cm. ??The endometrial stripe is thickened, measuring up to 10 mm in maximum thickness. This is in the fundus, where the endomet rium demonstrates a somewhat more bulbous appearance. ??This focal ar ea measures 12 x 9 x 12 mm and a small polyp or other endometrial proce ss is not excluded. ??There is also a smaller cystic area adjacent to t he hyperechoic area in the endometrium measuring up to 4 mm. ??The uterus is otherwise unremarkable. ??Both ovaries are identif ied and appear small and quiescent. ??There is no free fluid in t he cul-de-sac. Procedure Note Cata Robison MD - 01/09/2017Formattin g of this note might be different from the original. CLINICAL HISTORY: 67-year-old female wit h postmenopausal bleeding. FINDINGS: Both transabdominal and transv aginal scanning were performed. The uterus measures 6.1 x 3.5 x 4.4 cm. The endometrial stripe is thickened, measuring up to 10 mm in maximum thickness. This is in the fundus, where the endomet rium demonstrates a somewhat more bulbous appearance. This focal area measures 12 x 9 x 12 mm and a small polyp or other endometrial proce ss is not excluded. There is also a smaller cystic area adjacent to t he hyperechoic area in the endometrium measuring up to 4 mm. The ut erus is otherwise unremarkable. Both ovaries are identifie d and appear small and quiescent. There is no free fluid in the cul-de-sac. IMPRESSION : Abnormally thickened endometrium with possible focal hyperechoic polyp or other endometrial p rocess. Tissue sampling is suggested for further evaluation. Bc- [id number] Dictating CATA SALAZAR Radiologist Wilmer Duran MD RAD documented in this encounter Visit Diagnoses Not on filedocumented in this encounter Care Teams Department Head Relationship Specialty Start Date End Date Dirk Ruiz MD PCP - General 02/05/11 04/15/15 [address] [place] [address] documented as of this encounter
--- OUTSIDE RECORDS SUMMARY | 2022-08-15 14:58 | XMS_ITS | Encounter Summary ---
:1940 Author Organization [facility] Address [address] [place] [address] Care Team Providers Name Role Phone Dirk Ruiz MD Primary Care Provider Encounter Details Date Type Department Care Team Description 03/05/2008 PN Conversion Only CONV GASTROENTEROLOG Y Joao Sweet MD [address] [facility] [address] [place], [place] [id number] (Wo rk) Social History Tobacco Use Types Packs/Day Years Used Date Smoking Tobacco: Never Assessed Sex Assigned at Date Recorded Not on file documented as of this encounter Plan of Treatment Not on filedocumented as of this encounter Visit Diagnoses Not on filedocumented in this encounter Care Teams Mill Helper Relationship Specialty Start Date End Date Dirk Ruiz MD PCP - General 02/05/11 04/15/15 [address] [place], [place] [id number] documented as of this encounter
--- OUTSIDE RECORDS SUMMARY | 2022-08-15 14:58 | XMS_ITS | Encounter Summary ---
:1940 Author Organization [facility] Address [address] [place] [address] Care Team Providers Name Role Phone Dirk Ruiz MD Primary Care Provider Encounter Details Date Type Department Care Team Description 02/19/2008 PN Conversion [place] [address] [facility] [address] [place] [facility] [place] [address] [place] [address] Social History Tobacco Use Types Packs/Day Years Used Date Smoking Tobacco: Never Assessed Sex Assigned at Date Recorded Not on file documented as of this encounter Plan of Treatment Not on filedocumented as of this encounter Procedures Procedure Name Priority Date/Time Associated Comments Diagnosis THYROID STIMULATING Routine 02/19/2008 2:36 PM Re sults for this HORMONE CDT procedure are i n the results section. COMPLETE BLOOD Routine 02/19/2008 2:36 PM Results for this COUNT-NO DIFF CDT procedure are in the results section. documented in this encounter Results Thyroid Stimulating Hormone (02/19/2008 2:36 PM CDT) athologist Signature Thyroid 2.63 0.20 - HP CONVERSION Stimulating 4.50 Hormone uIU/mL Specimen (Source) Anatomical Collection Method Collection Time Re ceived Time Location / / Volume Laterality 02/19/2008 2:36 PM CDT Wilmer Duran MD LAB_1 Performing Organization Address City/State/ZIP Code Phon e Number HP CONVERSION Complete Blood Count-No Diff (02/19/2008 2:36 PM CDT) athologist Signature White Blood Cell 8.8 3.8 - 11.0 HP CONVERSIO N Count K/cmm Red Blood Cell 4.71 3.70 - HP CONVERSION Count 5.20 m/cmm Hemoglobin 13.8 11.8 - HP CONVERSION 15.5 gm/dL Hematocrit 39.5 35.0 - HP CONVERSION 46.0 % Mean Corpuscular 83.7 80.0 - HP CONVERSION Volume 100.0 fl Mean Corpuscular 29.4 27.0 - HP CONVERSION Hemoglobin 34.0 pg Mean Corpuscular 35.1 32.0 - HP CONVERSION Hemoglobin Conc 36.5 gm/dL Tama RDW 12.7 11.0 - HP CONVERSION 15.0 % Platelet Count 257 140 - 450 HP CONVERSION k/cmm Specimen (Source) Anatomical Collection Method Collection Time Re ceived Time Location / / Volume Laterality 02/19/2008 2:36 PM CDT Wilmer Duran MD LAB_1 Performing Organization Address City/State/ZIP Code Phon e Number HP CONVERSION documented in this encounter Visit Diagnoses Not on filedocumented in this encounter Care Teams Rn Imaging Relationship Specialty Start Date End Date Dirk Ruiz MD PCP - General 02/05/11 04/15/15 [address] [place] [address] documented as of this encounter
--- OUTSIDE RECORDS SUMMARY | 2022-08-15 14:58 | XMS_ITS | Encounter Summary ---
:1940 Author Organization [facility] Address [address] [place] [address] Care Team Providers Name Role Phone Dirk Ruiz MD Primary Care Provider Reason for Visit Reason Comments Other Encounter Details Date Type Department Care Team Description 07/02/2007 Telephone [facility], Message Other [address] [place] [address] Social History Tobacco Use Types Packs/Day Years Used Date Smoking Tobacco: Never Assessed Sex Assigned at Date Recorded Not on file documented as of this encounter [facility], Message - 07/02/2007 8:11 AM CDT Phone Note filed by Linqia at 02/22/11258 Author: Linqia Service: (none) Author Type: (none) Filed: 02/22/11258 Note Time: 07/02/07810 Status: Signed Director Trading: Linqia Non -Symptom Message from Front Line Caller Name/Relationship:Michele Primary Mold Bunch Trimmer:Dirk Ruiz Message:Needs refill RX Senior Service Aide:Michele Rudy call back number:[phone] Is it OK to leave a confidential message on this voicemail?Y [id number] Created on 02Jul2007 8:11am by YUE GUTIERREZ On 02Jul2007 9:20am ROMINA ANDUJAR wrote: Pt didn't get any refills on the rx in May for her Lisinopril 20 mg 1 tab qd #90. Please mail to pts home address, she will need refills while she is in [place] for the winter On 02Jul2007 10:00am DIRK RUIZ wrote: PRINTED REF LISINOPRIL Acknowledged by DIRK RUIZ on 10:00am On 02Jul2007 11:25am ROMINA ANDUJAR wrote: Mailed to pt INE II ENGRAVER documented in this encounter Plan of Treatment Not on filedocumented as of this encounter Visit Diagnoses Not on filedocumented in this encounter Care Teams Coin Dealer Relationship Specialty Start Date End Date Dirk Ruiz MD PCP - General 02/05/11 04/15/15 [address] [place] [address] documented as of this encounter
--- OUTSIDE RECORDS SUMMARY | 2022-08-15 14:58 | XMS_ITS | Encounter Summary ---
:1940 [facility] Address [address] [place] [address] Care Team Providers Name Role Phone Dirk Ruiz MD Primary Care Provider Encounter Details Date Type Department Care Team Description 07/01/2004 Office Visit [facility] [place] [id number] [place] [address] [place] [address] [phone] Social History Tobacco Use Types Packs/Day Years Used Date Smoking Tobacco: Never Assessed Sex Assigned at Date Recorded Not on file documented as of this encounter Progress Notes Dirk Ruiz MD - 07/01/2004 12:01 AM CDT Progress Notes signed by Dirk Ruiz MD at 07/20/04 1454 Author: Dirk Ruiz MD Service: (none) Author Type: Physician Filed: 02/23/11 3609 Note Time: 07/01/04 0001 Status: Signed Machine Welt Butter: Dirk Ruiz MD (Physician) NAME: MICHELE PIZARRO MR: [id number] ACCT: [id number] VISIT: [id number] DICTATING CLINICIAN: DIRK RUIZ MD JOB: [id number] CLINIC PROGRESS NOTE DATE OF VISIT: 07/01/2004 SUBJECTIVE: : 1940. Eikoi-qcz-adcu-old comes in for hypertension, postmenopausal, and a history of renal insufficiency. Last cholesterol 232 with HDL 52, LDL 132, and a triglyceride of 239. She is not on a statin presently and we have recommended this in the past. She is on lisinopril 20 and atenolol 50, 81 EC aspirin. ADR/ALLERGIES: PENICILLIN AND SULFA WHICH GIVE HER HIVES AND IV DYE. Her mom had liver cancer. Dad polycystic kidney, was on dialysis. Patient has had her ultrasound of the kidney which was negative. She is single. 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 She is tolerating her medicines well. She is denying any chest pain or shortness of breath or any palpitations or any skin concerns. She is due to have her pap and her mammogram, they have always been normal. Her mammogram is ordered. She has been with [employer] and lost 25 lb and I complimented her. She went from 205 to 180. She is 5 ft 4 in. Suggested she continue this. Her tetanus was in 1998. OBJECTIVE: VS: BP: 126/86. P: 60. R: 16. Nonsmoker. Nondrinker. HEENT: Negative. SKIN: She had some skin tags neck axillae. A few moles on the trunk that appeared benign. LUNGS: Clear. CORE: Regular without murmur or gallop. ABDOMEN: Protuberant. No masses or organomegaly. EXTERNAL GENITALIA: Normal. Uterus not enlarged, no definite adnexal masses and her pap was obtained from normal appearing cervix. RECTAL: Heme negative. EXTREMITIES: No CCE. DTRs symmetric. BREAST EXAM: Without masses. No adenopathy. ASSESSMENT: PLAN: Her mammogram is ordered. I have ordered a Lyme titer because of the rash, although there is no central clearing. Cholesterol, BUN, creatinine, potassium, and the pap is pending and she will schedule a flex which she has not had and I will contact her with labs. She will continue to monitor her blood pressure and will probably need a statin. Discussed, although the 25 lb weight loss may have brought cholesterol down. CC:[id number] C: 07/05/04 17:12 DOCUMENT: [id number] documented in this encounter Plan of Treatment Not on filedocumented as of this encounter Visit Diagnoses Not on filedocumented in this encounter Care Teams Strategy Consultant Relationship Specialty Start Date End Date Dirk Ruiz MD PCP - General 02/05/11 04/15/15 [address] [place] [address] documented as of this encounter
--- OUTSIDE RECORDS SUMMARY | 2022-08-15 14:58 | XMS_ITS | Encounter Summary ---
:1940 Author [facility] Address [address] [place] [address] Care Team Providers Name Role Phone Dirk Ruiz MD Primary Care Provider Encounter Details Date Type Department Care Team Description 05/04/2006 PN Conversion Only [facility] [address] [place] [address] Social History Tobacco Use Types Packs/Day Years Used Date Smoking Tobacco: Never Assessed Sex Assigned at Date Recorded Not on file documented as of this encounter Plan of Treatment Not on filedocumented as of this encounter Procedures Procedure Name Priority Date/Time Associated Diagnosis Comme nts MM MAMMOGRAM Routine 05/04/2006 8:40 AM Results f or this SCREENING W CAD CDT procedure ar e in the results section. documented in this encounter Results MM Mammogram Screening W CAD (05/04/2006 8:40 AM CDT) Anatomical Region Laterality Modality Breast Bilateral Mammography Specimen (Source) Anatomical Location Collection Method / Collectio n Time Received Time / Laterality Volume Impressions 05/15/2006 2:34 PM CDT : BILATERAL BREASTS - Category 1 Negative, no evidence of malignancy. Nor mal interval follow-up is recommended in 12 months. OVERALL ASSESSMENT - NEGATIVE END OF IMPRESSION Dictating MALORIE MCKEON RADIOLOGIST Narrative 05/15/2006 2:34 PM CDT Comparison is made to films from 08/12/2004 (bilateral). ??There is no significant interval change. Bilateral Breast Findings: The breasts are heterogeneously dense. T his may lower the sensitivity of mammography. ??No significant masses, calcifications or other abnormalities are seen. Procedure Note Malorie Zimmerman - 01/09/2017Formattin g of this note might be different from the original. Comparison is made to films from 004 (bilateral). There is no significant interval change. Bilateral Breast Findings: The breasts are heterogeneously dense. T his may lower the sensitivity of mammography. No significant masses, c alcifications or other abnormalities are seen. IMPRESSION : BILATERAL BREASTS - Category 1 Negative, no evidence of malignancy. Nor mal interval follow-up is recommended in 12 months. OVERALL ASSESSMENT - NEGATIVE END OF IMPRESSION Dictating MALORIE MCKEON RADIOLOGIST Dirk Ruiz MD RAD [place] documented in this encounter Visit Diagnoses Not on filedocumented in this encounter Care Teams Production Quality Analyst Relationship Specialty Start Date End Date Dirk Ruiz MD PCP - General 02/05/11 04/15/15 [address] [place] [address] documented as of this encounter
--- OUTSIDE RECORDS SUMMARY | 2022-08-15 14:58 | XMS_ITS | Encounter Summary ---
:1940 Author [facility] Address [address] [place] [address] Care Team Providers Name Role Phone Dirk Ruiz MD Primary Care Provider Encounter Details Date Type Department Care Team Description 08/12/2004 PN Conversion Only [facility] [address] [place] [address] Social History Tobacco Use Types Packs/Day Years Used Date Smoking Tobacco: Never Assessed Sex Assigned at Date Recorded Not on file documented as of this encounter Plan of Treatment Not on filedocumented as of this encounter Procedures Procedure Name Priority Date/Time Associated Diagnosis Comme nts MM MAMMOGRAM Routine 08/12/2004 2:18 PM Results f or this SCREENING W CAD CDT procedure ar e in the results section. documented in this encounter Results MM Mammogram Screening W CAD (08/12/2004 2:18 PM CDT) Anatomical Region Laterality Modality Breast Bilateral Mammography Specimen (Source) Anatomical Location Collection Method / Collectio n Time Received Time / Laterality Volume Impressions 08/16/2004 2:09 PM CDT : BILATERAL BREASTS - Category 1 Negative, no evidence of malignancy. Nor mal interval follow-up is recommended in 12 months. OVERALL ASSESSMENT - NEGATIVE END OF IMPRESSION Dictating ESAU DAVENPORT RADIOLOGIST Narrative 08/16/2004 2:09 PM CDT Bilateral Breast Findings: The breasts are heterogeneously dense. T his may lower the sensitivity of mammography. ??No significant masses, calcifications or other abnormalities are seen. Procedure Note Esau Shelton MD - 01/09/2017 Bilateral Breast Findings: The breasts are heterogeneously dense. T his may lower the sensitivity of mammography. No significant masses, c alcifications or other abnormalities are seen. IMPRESSION : BILATERAL BREASTS - Category 1 Negative, no evidence of malignancy. Nor mal interval follow-up is recommended in 12 months. OVERALL ASSESSMENT - NEGATIVE END OF IMPRESSION Dictating ESAU DAVENPORT RADIOLOGIST Dirk Ruiz MD RAD [place] documented in this encounter Visit Diagnoses Not on filedocumented in this encounter Care Teams Welding Instructor Relationship Specialty Start Date End Date Dirk Ruiz MD PCP - General 02/05/11 04/15/15 [address] [place] [address] documented as of this encounter
--- OUTSIDE RECORDS SUMMARY | 2022-08-15 14:58 | XMS_ITS | Encounter Summary ---
:1940 Author Organization [facility] Address [address] [place] [address] Care Team Providers Name Role Phone Dirk Ruiz MD Primary Care Provider Encounter Details Date Type Department Care Team Description 04/30/2006 PN Conversion Only [facility]EE CONVERSION Dirk Ruiz, [address] MD, DR [address] [place] [address] [place] [address] Social History Tobacco Use Types Packs/Day Years Used Date Smoking Tobacco: Never Assessed Sex Assigned at Date Recorded Not on file documented as of this encounter Plan of Treatment Not on filedocumented as of this encounter Visit Diagnoses Not on filedocumented in this encounter Care Teams Legal Arbitrator Relationship Specialty Start Date End Date Dirk Ruiz MD PCP - General 02/05/11 04/15/15 [address] [place] [address] documented as of this encounter
--- OUTSIDE RECORDS SUMMARY | 2022-08-15 14:58 | XMS_ITS | Encounter Summary ---
:1940 Author Organization [facility] Address [address] [facility] [place] [address] Care Team Providers Name Role Phone Dirk Ruiz MD Primary Care Provider Reason for Visit Reason Comments Other Encounter Details Date Type Department Care Team Description 02/27/2008 Telephone [facility] [address] Anila Delgado RN Other Gastroenterology [address] [facility] [place] [address] Social History Tobacco Use Types Packs/Day Years Used Date Smoking Tobacco: Never Assessed Sex Assigned at Date Recorded Not on file documented as of this encounter Progress Notes Anila Delgado RN - 02/27/2008 12:19 PM CDT Phone Note filed by Anila Delgado RN at 02/22/111916 Author: Anila Delgado RN Service: (none) Author Type: Registered Nurse Filed: 02/22/111916 Note Time: 02/27/081218 Status: Signed Community Relations Rep: Anila Delgado RN (Registered Nurse) PPA completed/instructions reviewed for colonoscopy Created on 27Feb2008 12:20pm by ANILA DELGADO GENCY ROOM PHYSICIAN documented in this encounter Plan of Treatment Not on filedocumented as of this encounter Visit Diagnoses Not on filedocumented in this encounter Care Teams Foreclosure Field Inspector Relationship Specialty Start Date End Date Dirk Ruiz MD PCP - General 02/05/11 04/15/15 [address] [place] [address] documented as of this encounter
--- OUTSIDE RECORDS SUMMARY | 2022-08-15 14:58 | XMS_ITS | Encounter Summary ---
:1940 Author Organization [facility] Address [address] [place] [address] Care Team Providers Name Role Phone Dirk Ruiz MD Primary Care Provider Reason for Visit Reason Comments Other Encounter Details Date Type Department Care Team Description 02/24/2008 Telephone [facility], Message Other [address] [place] [address] Social History Tobacco Use Types Packs/Day Years Used Date Smoking Tobacco: Never Assessed Sex Assigned at Date Recorded Not on file documented as of this encounter Progress Notes Naun Moon - 02/24/2008 10:00 AM CDT Phone Note filed by Naun Moon MD at 02/22/111857 Author: Naun Moon MD Service: (none) Author Type: Physician Filed: 02/22/111857 Note Time: 02/24/08 1000 Status: Signed Phlebotomy Technician: Naun Moon MD (Physician) Please inform patient blood count and thyroid test were normal. Pelvic ultrasound shows thickened uterus lining and possible polyp inside uterus. Please advise/arrange NOZZLE AND SLEEVE WORKER consult for postmenopausal bleeding with abnormal pelvic ultrasound. Created on 24Feb2008 10:00am by NAUN MOON On 24Feb2008 10:43am MARY SALTER wrote: contacted pt and told the above information. Made appt for a NOZZLE AND SLEEVE WORKER consult on february 24 at 9:00am with dr. Adrian. Pt notified. Acknowledged by MARY SALTER on 10:43am OLOGY SCHEDULER documented in this encounter Plan of Treatment Not on filedocumented as of this encounter Visit Diagnoses Not on filedocumented in this encounter Care Teams Pit Furnace Melter Relationship Specialty Start Date End Date Dirk Ruiz MD PCP - General 02/05/11 04/15/15 [address] [place] [address] documented as of this encounter
--- OUTSIDE RECORDS SUMMARY | 2022-08-15 14:58 | XMS_ITS | Encounter Summary ---
:1940 [facility] Address [address] [place] [address] Care Team Providers Name Role Phone Dirk Ruiz MD Primary Care Provider Encounter Details Date Type Department Care Team Description 02/19/2008 PN Conversion Only [facility] CONVERSION [address] [place] [address] Social History Tobacco Use Types Packs/Day Years Used Date Smoking Tobacco: Never Assessed Sex Assigned at Date Recorded Not on file documented as of this encounter Plan of Treatment Not on filedocumented as of this encounter Visit Diagnoses Not on filedocumented in this encounter Care Teams Product Director Relationship Specialty Start Date End Date Dirk Ruiz MD PCP - General 02/05/11 04/15/15 [address] [place] [address] documented as of this encounter
--- OUTSIDE RECORDS SUMMARY | 2022-08-15 14:58 | XMS_ITS | Encounter Summary ---
:1940 Author Organization [facility] Address [address] [place] [address] Care Team Providers Name Role Phone Dirk Ruiz MD Primary Care Provider Reason for Visit Reason Comments Other Encounter Details Date Type Department Care Team Description 02/25/2007 Telephone [facility] [address] [place], Message [facility] Gastroenterology [address] [place] [address] Social History Tobacco Use Types Packs/Day Years Used Date Smoking Tobacco: Never Assessed Sex Assigned at Date Recorded Not on file documented as of this encounter Progress Notes [place], Message - 02/25/2007 8:14 AM CDT Phone Note filed by Grafoid at 02/21/111924 Author: Grafoid Service: (none) Author Type: (none) Filed: 02/21/111924 Note Time: 02/25/07813 Status: Signed Quality Assurance Director: Message [place] pt cancelled colonoscopy & did not reschedule Created on 25Feb2007 8:14am by MARCELO LEMONS IUM CANCELLATION CLERK documented in this encounter Plan of Treatment Not on filedocumented as of this encounter Visit Diagnoses Not on filedocumented in this encounter Care Teams Linseed Oil Press Tender Relationship Specialty Start Date End Date Dirk Ruiz MD PCP - General 02/05/11 04/15/15 [address] [place] [address] documented as of this encounter
--- OUTSIDE RECORDS SUMMARY | 2022-08-15 14:58 | XMS_ITS | Encounter Summary ---
:1940 Author Organization [facility] Address [address] [place] [address] Care Team Providers Name Role Phone Dirk Ruiz MD Primary Care Provider Encounter Details Date Type Department Care Team Description 05/09/2007 PN Conversion Only LEE CONVERSION Dirk Ruiz, [address] [facility] [address] [place] [address] [place] [address] [place] [address] Social History Tobacco Use Types Packs/Day Years Used Date Smoking Tobacco: Never Assessed Sex Assigned at Date Recorded Not on file documented as of this encounter Plan of Treatment Not on filedocumented as of this encounter Procedures Procedure Name Priority Date/Time Associated Comments Diagnosis THYROID STIMULATING Routine 05/09/2007 11:51 Resu lts for this HORMONE AM CDT procedure are i n the results section. URINALYSIS Routine 05/09/2007 11:51 Results for this ROUTINE(MICRO IF POS) AM CDT proced ure are in the results section. URINALYSIS Routine 05/09/2007 11:51 Results for this MICROSCOPIC AM CDT procedure are i n the results section. LIPID PANEL AND Routine 05/09/2007 11:51 Results for this DIRECT LDL(IF NEEDED) AM CDT proced ure are in the results section. CREATININE / GFR Routine 05/09/2007 11:51 Results for this AM CDT procedure are i n the results section. AST Routine 05/09/2007 11:51 Results for this AM CDT procedure are i n the results section. POTASSIUM Routine 05/09/2007 11:51 Results for this AM CDT procedure are i n the results section. documented in this encounter Results AST (05/09/2007 11:51 AM CDT) [facility] gist Method Time Signature Aspartate 27 0 - 45 HP CONVERSION Aminotransferase U/L Specimen (Source) Anatomical Collection Method Collection Time Re ceived Time Location / / Volume Laterality 05/09/2007 11:51 AM CDT Dirk Ruiz MD LAB_1 Performing Organization Address [facility] Phon e Number HP CONVERSION Creatinine / GFR (05/09/2007 11:51 AM CDT) athologist Signature Creatinine 0.9 0.4 - 1.3 HP CONVERSION Serum mg/dL Specimen (Source) Anatomical Collection Method Collection Time Re ceived Time Location / / Volume Laterality 05/09/2007 11:51 AM CDT Dirk Ruiz MD LAB_1 Performing Organization Address [facility] Phon e Number HP CONVERSION Potassium (05/09/2007 11:51 AM CDT) athologist Signature Potassium 5.0 3.5 - 5.2 HP CONVERSION mEq/L Specimen (Source) Anatomical Collection Method Collection Time Re ceived Time Location / / Volume Laterality 05/09/2007 11:51 AM CDT Dirk Ruiz MD LAB_1 Performing Organization Address [facility] Phon e Number HP CONVERSION (ABNORMAL) Lipid Panel and Direct LDL(If Needed) (05/09/2007 11:51 AM CDT) [facility] Method Time Signature Length Of Fast 12.0 Hours HP CONVERSION Cholesterol/HDL 3.9 No normal HP CONVERSION Ratio Screen range Cholesterol 160 <200 mg/dL HP CONVERSION HDL Cholesterol 41 40 - 60 HP CONVERSION mg/dL Triglycerides 152 (H) 0 - 149 HP CONVERSION mg/dL LDL Calculated 89 0 - 130 HP CONVERSION mg/dL Comment: Specimen (Source) Anatomical Collection Method Collection Time Re ceived Time Location / / Volume Laterality 05/09/2007 11:51 AM CDT Dirk Ruiz MD LAB_1 Performing Organization Address [facility] Phon e Number HP CONVERSION Thyroid Stimulating Hormone (05/09/2007 11:51 AM CDT) athologist Signature Thyroid 2.44 0.20 - HP CONVERSION Stimulating 4.50 Hormone uIU/mL Specimen (Source) Anatomical Collection Method Collection Time Re ceived Time Location / / Volume Laterality 05/09/2007 11:51 AM CDT Dirk Ruiz MD LAB_1 Performing Organization Address [facility] Phon e Number HP CONVERSION (ABNORMAL) Urinalysis Routine(Micro If Pos) (05/09/2007 11:51 AM CDT) [facility] Method Time Signature Turbidity Clear No [...] - 1.0 HP CONVERSION Urine U Specific <=1.005 1.005 - 25 HP CONVERSION [place] Specimen (Source) Anatomical Collection Method Collection Time Re ceived Time Location / / Volume Laterality 05/09/2007 11:51 AM CDT Dirk Ruiz MD LAB_1 Performing Organization Address [facility] Phon e Number HP CONVERSION (ABNORMAL) Urinalysis Microscopic (05/09/2007 11:51 AM CDT) [facility] Method Time Signature White Blood 0-2/HPF 0 - 3 HP CONVERSION Cells Urine Red Blood Cells Negative 0 - 2 HP CONVERSION Urine Bacteria Urine Rare (A) None HP CONVERSION Epithelial Few Few /HPF HP CONVERSION Cells Specimen (Source) Anatomical Collection Method Collection Time Re ceived Time Location / / Volume Laterality 05/09/2007 11:51 AM CDT Dirk Ruiz MD LAB_1 Performing Organization Address [facility] Phon e Number HP CONVERSION documented in this encounter Visit Diagnoses Not on filedocumented in this encounter Care Teams Handle Assembler Relationship Specialty Start Date End Date Dirk Ruiz MD PCP - General 02/05/11 04/15/15 [address] [place] [address] documented as of this encounter
--- OUTSIDE RECORDS SUMMARY | 2022-08-15 14:58 | XMS_ITS | Encounter Summary ---
:1940 Author Organization [facility] Address [address], [place] [address] Care Team Providers Name Role Phone Dirk Ruiz MD Primary Care Provider Encounter Details Date Type Department Care Team Description 04/30/2006 Office Visit [facility] [place] [address] [address] [place] [address] [phone] Social History Tobacco Use Types Packs/Day Years Used Date Smoking Tobacco: Never Assessed Sex Assigned at Date Recorded Not on file documented as of this encounter Last Filed Vital Signs Vital Sign Reading Time Taken Comments Blood Pressure 146/94 04/30/2006 7:36 AM CDT Pulse 68 04/30/2006 7:36 AM CDT Temperature - - Respiratory Rate - - Oxygen Saturation - - Inhaled Oxygen Concentration - - Weight 90.3 kg (198 lb 15.8 oz) 04/30/2006 7:36 AM C: 9 0.3kg CDT Height 162.6 cm (5' 4) 04/30/2006 7:36 AM C: 162.6cm CDT Body Mass Index 34.16 04/30/2006 7:36 AM CDT documented in this encounter Progress Notes Dirk Ruzi MD - 04/30/2006 12:01 AM CDT Progress Notes signed by Dirk Ruiz MD at 05/02/06 1341 Author: Dirk Ruiz MD Service: (none) Author Type: Physician Filed: 02/24/11 1243 Note Time: 04/30/06 0001 Status: Signed Audio/Visual Manager: Dirk Ruiz MD (Physician) NAME: MICHELE PIZARRO MR: [id number] ACCT: [id number] VISIT: [id number] DICTATING CLINICIAN: DIRK RUIZ MD JOB: [id number] CLINIC PROGRESS NOTE DATE OF VISIT: 04/30/2006 SUBJECTIVE: : 1940. A 65-year-old is here for a complete physical. She is spending love in [place]. She had to discuss GERD symptoms today, which have been bothersome for sometime and itchy anal area. She is a nondrinker, nonsmoker. ADR/ALLERGIES: SULFA AND PENICILLIN. Reviewing her LastWord, her last bone density was normal at 103. Discussed weight loss, getting down into the 170s. She said her blood pressures had been averaging 135/80. She is having no chest pain or shortness of breath. The rectal itching is her major complaint. She had a recent kidney ultrasound that was negative. She is currently on lisinopril 20 and atenolol 50 for hypertension. We discussed calcium, high-dose vitamin D, and aspirin 81 a.c. daily. Mom: Liver cancer. Dad: Polycystic kidney. Patient does not have this. Two sibs with GERD symptoms; one has obesity. She is single, no children. OBJECTIVE: VS: BP: 146/94. P: 68. R: 16. Ht: 5 ft 4 in. Wt: 199. HEENT: Negative. Anicteric sclerae. LUNGS: Clear. COR: Regular without murmur or gallop. ABDOMEN: Benign. BREASTS: Without masses. No axillary or cervical adenopathy. EXTERNAL GENITALIA: Normal for age. No uterine enlargement. Cannot enter more than 2 fingers. Difficult to do a bimanual. No obvious masses. Pap obtained from normal appearing cervix. EXTREMITIES: No CCE. DTRs symmetric. RECTAL: Heme-negative. She had no other abnormalities other than some mild excoriations. ASSESSMENT: Physical, age 65. GERD. PLAN: Hypertension: She was unable to tolerate hydrochlorothiazide. We will continue with atenolol, lisinopril. She will call me back with the BPs in 1 month, although she does come in with a list of them, and they have been adequately controlled. She agreed to schedule a mammogram, 1 year out from her last. I recommended a statin for her cholesterol, discussed. Fifteen minutes counselling on this and pruritus ani. She will try tovm-njo-bmawawe agent such as H2-blockers. It has been effective. I gave her a formula to go on to a PPI such as Prilosec. Cholesterol, creatinine, UA, AST, K pending. Schedule colonoscopy and we will contact her with Pap results. Discussed the family history of PKD and her recent bone density and handout on pruritus ani is dispensed. [id number] C: 05/02/06 12:49 DOCUMENT: [id number] documented in this encounter Plan of Treatment Not on filedocumented as of this encounter Visit Diagnoses Not on filedocumented in this encounter Care Teams Cadd Drafter Relationship Specialty Start Date End Date Dirk Ruiz MD PCP - General 02/05/11 04/15/15 [address] [place] [address] documented as of this encounter
--- OUTSIDE RECORDS SUMMARY | 2022-08-15 14:58 | XMS_ITS | Encounter Summary ---
:1940 Author Organization [facility] Address [address] [place] [address] Care Team Providers Name Role Phone Dirk Ruiz MD Primary Care Provider Encounter Details Date Type Department Care Team Description 07/01/2004 PN Conversion Only LEE CONVERSION [address] [place] [address] Social History Tobacco Use Types Packs/Day Years Used Date Smoking Tobacco: Never Assessed Sex Assigned at Date Recorded Not on file documented as of this encounter Plan of Treatment Not on filedocumented as of this encounter Visit Diagnoses Not on filedocumented in this encounter Care Teams Sand Operator Relationship Specialty Start Date End Date Dirk Ruiz MD PCP - General 02/05/11 04/15/15 [address] [place] [address] documented as of this encounter
--- OUTSIDE RECORDS SUMMARY | 2022-08-15 14:58 | XMS_ITS | Encounter Summary ---
:1940 Author Organization [facility] Address [address] [place] [address] Care Team Providers Name Role Phone Dirk Ruiz MD Primary Care Provider Encounter Details Date Type Department Care Team Description 05/07/2007 PN Conversion Only LEE CONVERSION [address] [place] [address] Social History Tobacco Use Types Packs/Day Years Used Date Smoking Tobacco: Never Assessed Sex Assigned at Date Recorded Not on file documented as of this encounter Plan of Treatment Not on filedocumented as of this encounter Visit Diagnoses Not on filedocumented in this encounter Care Teams Tax Collector Relationship Specialty Start Date End Date Dirk Ruiz MD PCP - General 02/05/11 04/15/15 [address] [place] [address] documented as of this encounter
--- OUTSIDE RECORDS SUMMARY | 2022-08-15 14:58 | XMS_ITS | Encounter Summary ---
:1940 Author Organization [facility] Address [address] [place] [address] Care Team Providers Name Role Phone Dirk Ruiz MD Primary Care Provider Reason for Visit Reason Comments Other Encounter Details Date Type Department Care Team Description 05/15/2006 Telephone CONV [id number] Platypus Platform, Message Other [address] [place] [address] Social History Tobacco Use Types Packs/Day Years Used Date Smoking Tobacco: Never Assessed Sex Assigned at Date Recorded Not on file documented as of this encounter Progress Notes PPDai, Message - 05/15/2006 2:48 PM CDT Phone Note filed by myseekit at 02/21/11606 Author: [employer] Service: (none) Author Type: (none) Filed: 02/21/11606 Note Time: 05/15/06 1448 Status: Signed Armature Winder Repair Helper: [facility] Gi dept 1st.contact patient request screening colonoscopy in march 2006.Gi dept will contact patient to schedule. Created on 15May2006 2:48pm by AMINA ZAVALA NESS PROCESS EXPERT documented in this encounter Plan of Treatment Not on filedocumented as of this encounter Visit Diagnoses Not on filedocumented in this encounter Care Teams Policy Checker Relationship Specialty Start Date End Date Dirk Ruiz MD PCP - General 02/05/11 04/15/15 [address] [place], [place] [address] documented as of this encounter
--- OUTSIDE RECORDS SUMMARY | 2022-08-15 14:58 | XMS_ITS | Encounter Summary ---
:1940 Author Organization [facility] Address [address] [place] [address] Care Team Providers Name Role Phone Dirk Ruiz MD Primary Care Provider Encounter Details Date Type Department Care Team Description 07/01/2004 PN Conversion Only LEE CONVERSION Dirk Ruiz, [address], [address] [place] [address] [place] [address] Social History Tobacco Use Types Packs/Day Years Used Date Smoking Tobacco: Never Assessed Sex Assigned at Date Recorded Not on file documented as of this encounter Plan of Treatment Not on filedocumented as of this encounter Visit Diagnoses Not on filedocumented in this encounter Care Teams Senior Systems Programmer Relationship Specialty Start Date End Date Dirk Ruiz MD PCP - General 02/05/11 04/15/15 [address] [place] [address] documented as of this encounter
--- OUTSIDE RECORDS SUMMARY | 2022-08-15 14:58 | XMS_ITS | Encounter Summary ---
:1940 Author Organization [facility] Address [address] [address] Care Team Providers Name Role Phone Dirk Ruiz MD Primary Care Provider Encounter Details Date Type Department Care Team Description 02/19/2008 Office Visit [facility] [place] [address] [place] [address] [place] [address] [phone] Social History Tobacco Use Types Packs/Day Years Used Date Smoking Tobacco: Never Assessed Sex Assigned at Date Recorded Not on file documented as of this encounter Last Filed Vital Signs Vital Sign Reading Time Taken Comments Blood Pressure 138/90 02/19/2008 1:57 PM CDT Pulse 70 02/19/2008 1:57 PM CDT Temperature - - Respiratory Rate - - Oxygen Saturation - - Inhaled Oxygen Concentration - - Weight 93.4 kg (206 lb) 02/19/2008 1:57 PM CDT C: 93.4k g Height - - Body Mass Index 35.36 05/09/2007 10:48 AM CDT documented in this encounter Progress Notes Wilmer Duran - 02/19/2008 12:01 AM CDT Progress Notes signed by Wilmer Duran MD at 02/19/08 7807 Author: Wilmer Duran MD Service: (none) Author Type: Physician Filed: 02/25/11 0320 Note Time: 02/19/08 0001 Status: Signed Human Resources Office Manager: Wilmer Duran MD (Physician) PROBLEM: Postmenopausal bleeding SUBJECTIVE: The patient presents to address vaginal bleeding occurring the past two days. Enough to use a tampon which also confirmed the vaginal source but not soaking tampons. She describes it as a bloody discharge trickle. No associated abdominal pelvic or back pain. No urinary difficulty or bowel movement problems. She experienced menopause she states 5 years ago and has had no bleeding since. She is single and not sexually active. Past history notable for a D&C for benign disease several years ago. She has never been . No family history of uterine or ovarian cancer. Medications: Medications reviewed and updated in [employer] med list today. Allergies/Adverse Drug Reactions: Reviewed. See ADR List in LastWord. Review of Systems: All systems were reviewed and found to be negative except as noted below. OBJECTIVE: Vital Signs: Reviewed in flowsheet charting of [employer]. Pleasant, cooperative, no acute distress. Obese weight 206 pounds. Abdomen soft nontender organomegaly or masses. Pelvic exam is completed. Normal external genitalia, no inguinal adenopathy. Right labial cyst which she states is stable is noted. Introitus is normal. Speculum exam is normal with cervix notable for a scant medium red uterine bleeding/discharge. Bimanual exam is limited by abdominal pannus but there is no obvious pelvic masses and uterus appears to be atrophic with no adnexal masses or tenderness and ovaries nonpalpable. Rectovaginal exam is normal. ASSESSMENT: Postmenopausal bleed PLAN: Discussed impressions and the importance of following through with this evaluation. We will plan a pelvic ultrasound as next step and ABC with TSH. Would favor IN SHOP SERVICE TECHNICIAN consult for endometrial biopsy given the atrophic nature of her cervix as next step depending on findings. *SH~DNSarah Beth~[id number] documented in this encounter Plan of Treatment Not on filedocumented as of this encounter Visit Diagnoses Not on filedocumented in this encounter Care Teams Mold Filler And Drainer Relationship Specialty Start Date End Date Dirk Ruiz MD PCP - General 02/05/11 04/15/15 [address] [place] [address] documented as of this encounter
--- OUTSIDE RECORDS SUMMARY | 2022-08-15 14:58 | XMS_ITS | Encounter Summary ---
:1940 Author Organization [facility] Address [address] [place] [address] Care Team Providers Name Role Phone Dirk Ruiz MD Primary Care Provider Encounter Details Date Type Department Care Team Description 07/01/2004 PN Conversion Only LEE CONVERSION Dirk Ruiz, [address] [place] [address] [place] [address] Social History Tobacco Use Types Packs/Day Years Used Date Smoking Tobacco: Never Assessed Sex Assigned at Date Recorded Not on file documented as of this encounter Plan of Treatment Not on filedocumented as of this encounter Procedures Procedure Name Priority Date/Time Associated Comments Diagnosis ANATOMICAL PATH Routine 07/01/2004 10:19 AM Resul ts for this LIQUID BASED CDT procedure are i n the results section. LYME DISEASE SCREEN Routine 07/01/2004 9:47 AM Re sults for this (IN-HOUSE) CDT procedure are i n the results section. GLUCOSE Routine 07/01/2004 9:47 AM Results f or this CDT procedure are i n the results section. LIPID PROFILE= Routine 07/01/2004 9:47 AM Results for this CHOL,TRIG,HDL,LDL CDT procedure are in the results section. CREATININE / GFR Routine 07/01/2004 9:47 AM Resul ts for this CDT procedure are i n the results section. POTASSIUM Routine 07/01/2004 9:47 AM Results f or this CDT procedure are i n the results section. BUN Routine 07/01/2004 9:47 AM Results f or this CDT procedure are i n the results section. documented in this encounter Results Pap Smear (07/01/2004 10:19 AM CDT) [facility] Signature PAP Smear SEE TEXT No normal HP CONVERSION Liquid Based range Comment: Patient: MICHELE PIZARRO I ? CERVICAL CYTOLOGY REPORT Pathology # ??[id number] ?Date Obtained: ? Date Received: CYTOLOGIC IMPRESSION: Negative for intraepithelial lesion or m alignancy. ? DEEP TIONAL DATA LMP: ?ELEMENTARY SUPERVISOR CLINICAL HIST ? PREV PAP NORM 8-17-0 1,ACC [id number] LIQUID BASED PAP CERVICAL SPECIMEN ADEQUACY: ?? Satisfactory. ENDOCERVICAL CELLS: ??Present. Verified 07/12/04 by: ??TSC ?(electronic signature) Specimen (Source) Anatomical Collection Method Collection Time Re ceived Time Location / / Volume Laterality 07/01/2004 10:19 AM CDT Dirk Ruiz MD LAB_1 Performing Organization Address City/State/ZIP Code Phon e Number HP CONVERSION BUN (07/01/2004 9:47 AM CDT) P athologist Signature Blood Urea 17 5 - 26 HP CONVERSION Nitrogen mg/dL Specimen (Source) Anatomical Collection Method Collection Time Re ceived Time Location / / Volume Laterality 07/01/2004 9:47 AM CDT Dirk Ruiz MD LAB_1 Performing Organization Address City/State/ZIP Code Phon e Number HP CONVERSION Creatinine / GFR (07/01/2004 9:47 AM CDT) athologist Signature Creatinine 0.9 0.5 - 1.5 HP CONVERSION Serum mg/dL Specimen (Source) Anatomical Collection Method Collection Time Re ceived Time Location / / Volume Laterality 07/01/2004 9:47 AM CDT Dirk Ruiz MD LAB_1 Performing Organization Address City/[facility] Code Phon e Number HP CONVERSION Glucose (07/01/2004 9:47 AM CDT) athologist Signature Lab Glucose 91 60 - 100 HP CONVERSION mg/dL Specimen (Source) Anatomical Collection Method Collection Time Re ceived Time Location / / Volume Laterality 07/01/2004 9:47 AM CDT Dirk Ruiz MD LAB_1 Performing Organization Address City/[facility] Code Phon e Number HP CONVERSION Potassium (07/01/2004 9:47 AM CDT) athologist Signature Potassium 4.0 3.5 - 5.2 HP CONVERSION meq/L Specimen (Source) Anatomical Collection Method Collection Time Re ceived Time Location / / Volume Laterality 07/01/2004 9:47 AM CDT Dirk Ruiz MD LAB_1 Performing Organization Address [facility] Code Phon e Number HP CONVERSION (ABNORMAL) Lipid Profile= Chol,Trig,HDL,LDL (07/01/2004 9:47 AM CDT) [facility] Method Time Signature Cholesterol/HDL 5.7 No normal HP CONVERSION Ratio Screen range Triglycerides 175 0 - 199 HP CONVERSION mg/dL HDL Cholesterol 37 (L) 40 - 60 HP CONVERSION mg/dL LDL Calculated 140 (H) 66 - 129 HP CONVERSION mg/dL Cholesterol 212 (H) 125 - 199 HP CONVERSION mg/dL Specimen (Source) Anatomical Collection Method Collection Time Re ceived Time Location / / Volume Laterality 07/01/2004 9:47 AM CDT Dirk Ruiz MD LAB_1 Performing Organization Address City/[facility]/ZIP Code Phon e Number HP CONVERSION Lyme Disease Screen (IN-House) (07/01/2004 9:47 AM CDT) athologist Signature Lyme Screen Negative No normal HP CONVERSION range Comment: A negative Lyme result does not rule out Lyme disease. ??If a current infection is suspected, please submit a second specimen in 4-6 weeks. Positive or equivocal specimens are auto matically sent to [facility] for Western Blot testing. Specimen (Source) Anatomical Collection Method Collection Time Re ceived Time Location / / Volume Laterality 07/01/2004 9:47 AM CDT Dirk Ruiz MD LAB_1 Performing Organization Address City/State/ZIP Code Phon e Number HP CONVERSION documented in this encounter Visit Diagnoses Not on filedocumented in this encounter Care Teams Char Filter Operator Helper Relationship Specialty Start Date End Date Dirk Ruiz MD PCP - General 02/05/11 04/15/15 [address] [place] [address] documented as of this encounter
--- OUTSIDE RECORDS SUMMARY | 2022-08-15 14:58 | XMS_ITS | Encounter Summary ---
:1940 Author Organization [facility] Address [address] [place] [address] Care Team Providers Name Role Phone Dirk Ruiz MD Primary Care Provider Encounter Details Date Type Department Care Team Description 06/13/2007 PN Conversion Only [facility] [address] [place] [address] Social History Tobacco Use Types Packs/Day Years Used Date Smoking Tobacco: Never Assessed Sex Assigned at Date Recorded Not on file documented as of this encounter Plan of Treatment Not on filedocumented as of this encounter Procedures Procedure Name Priority Date/Time Associated Diagnosis Comme nts MM MAMMOGRAM Routine 06/13/2007 9:54 AM Results f or this SCREENING W CAD CDT procedure ar e in the results section. documented in this encounter Results MM Mammogram Screening W CAD (06/13/2007 9:54 AM CDT) Anatomical Region Laterality Modality Breast Bilateral Mammography Specimen (Source) Anatomical Location Collection Method / Collectio n Time Received Time / Laterality Volume Impressions 06/14/2007 2:47 PM CDT : BILATERAL BREASTS - Category 1 Negative, no evidence of malignancy. Nor mal interval follow-up is recommended in 12 months. OVERALL ASSESSMENT - NEGATIVE END OF IMPRESSION Dictating MALORIE MCKEON RADIOLOGIST Narrative 06/14/2007 2:47 PM CDT Comparison is made to films [...] on filedocumented in this encounter Care Teams Cigar Making Machine Supervisor Relationship Specialty Start Date End Date Dirk Ruiz MD PCP - General 02/05/11 04/15/15 [address] [place] [address] documented as of this encounter
--- OUTSIDE RECORDS SUMMARY | 2022-08-15 14:59 | XMS_ITS | Encounter Summary ---
:1940 Author Organization [facility] Address [address] [place] [address] Care Team Providers Name Role Phone Unavailable Primary Care Provider Unavailable Encounter Details Date Type Department Care Team Description 08/30/1999 Hospital Encounter [facility] Sanchez Langley MD [address] [place] [address] Sanchez Langley MD [address] [place] [address] [place] [address] Social History Tobacco Use Types Packs/Day Years Used Date Smoking Tobacco: Never Assessed Sex Assigned at Date Recorded Not on file documented as of this encounter Plan of Treatment Not on filedocumented as of this encounter Procedures Procedure Name Priority Date/Time Associated Comments Diagnosis CT ABD WO IV CONT Discharge 08/30/1999 7:24 Results for this Decision AM CDT procedure are i n the results section. documented in this encounter Results CT Abd WO IV Cont (08/30/1999 7:24 AM CDT) Anatomical Region Laterality Modality Abdomen, Pelvis Other Specimen (Source) Anatomical Location Collection Method / Collectio n Time Received Time / Laterality Volume Narrative 08/30/1999 7:24 AM CDT The exam was performed following oral but no intravenous contrast. FINDINGS: The liver, gallbladder and valiente creas are unremarkable. ??There is a 2 cm rounded area of decreased atte nuation in the inferior aspect of the spleen which probably represents a benign cyst. ??The adrenals and kidneys are unremarkable with no darwin dence of obstructive uropathy. There are a few scattered small, periaor tic lymph nodes present, but no enlarged nodes are noted. ??No pelvic mass lesions are identified. CONCLUSION: Nonspecific area of decrease d attenuation in the spleen with no other abnormalities identified. Procedure Note Kashif Smipson Spencer - 01/09/2017 The exam was performed following oral bu t no intravenous contrast. FINDINGS: The liver, gallbladder and valiente creas are unremarkable. There is a 2 cm rounded area of decreased atte nuation in the inferior aspect of the spleen which probably represents a benign cyst. The adrenals and kidneys are unremarkable with no darwin dence of obstructive uropathy. There are a few scattered small, periaor tic lymph nodes present, but no enlarged nodes are noted. No pelvic m ass lesions are identified. CONCLUSION: Nonspecific area of decrease d attenuation in the spleen with no other abnormalities identified. Sanchez Langley MD RAD CT documented in this encounter Visit Diagnoses Not on filedocumented in this encounter
--- OUTSIDE RECORDS SUMMARY | 2022-08-15 14:59 | XMS_ITS | Encounter Summary ---
:1940 Author Organization [facility] Address [address] [place] [address] Care Team Providers Name Role Phone Dirk Ruiz MD Primary Care Provider Encounter Details Date Type Department Care Team Description 03/18/1997 PN Conversion Only [facility]DHISM CONVERSION Sunny Ruiz MD [address] [place] [address] Social History Tobacco Use Types Packs/Day Years Used Date Smoking Tobacco: Never Assessed Sex Assigned at Date Recorded Not on file documented as of this encounter Plan of Treatment Not on filedocumented as of this encounter Procedures Procedure Name Priority Date/Time Associated Comments Diagnosis CONVERSION DEFAULT Routine 03/12/1997 7:02 AM Res ults for this INTERFACE ORDER CDT procedure ar e in the results section. documented in this encounter Results Conversion Default Interface Order (03/12/1997 7:02 AM CDT) athologist Signature PAP Smear See Detail HP CONVERSION Comment: NAME:MICHELE PIZARRO ?CERVICAL CYTOLOGY REPORT Pathology # ??[id number] ?Date Obtained: ?Date Received: LMP: CLINICAL HIST CERVICAL SMEAR SPECIMEN ADEQUACY: ?? Satisfactory. ENDOCERVICAL CELLS: ??Absent; patient i s post-menopausal. CYTOLOGIC IMPRESSION: Within Normal Limits (Negative). Verified 03/21/97 by: ??SD ? (electronic signature) Lisha TRUONG M.D., Director of Cyt opathology Specimen (Source) Anatomical Collection Method Collection Time Re ceived Time Location / / Volume Laterality 03/12/1997 7:02 AM CDT Dirk Ruiz MD LAB_1 Performing Organization Address City/State/ZIP Code Phon e Number HP CONVERSION documented in this encounter Visit Diagnoses Not on filedocumented in this encounter Care Teams Doctor Of Nurse Anesthesia Practice Relationship Specialty Start Date End Date Dirk Ruiz MD PCP - General 02/05/11 04/15/15 [address] [place] [address] documented as of this encounter
--- OUTSIDE RECORDS SUMMARY | 2022-08-15 14:59 | XMS_ITS | Encounter Summary ---
:1940 Author Organization [facility] Address [address] [place] [address] Care Team Providers Name Role Phone Dirk Ruiz MD Primary Care Provider Encounter Details Date Type Department Care Team Description 11/12/2002 PN Conversion Only [facility] [address] Xavier boogie MD Density [address] [facility] [address] [facility] [address] [place] [address] [id number] [phone] Social History Tobacco Use Types Packs/Day Years Used Date Smoking Tobacco: Never Assessed Sex Assigned at Date Recorded Not on file documented as of this encounter Progress Notes Xavier Vallecillo MD - 11/12/2002 12:01 AM CST Progress Notes signed by Xavier Vallecillo MD at 12/10/02 1925 Author: Xavier Vallecillo MD Service: (none) Author Type: Physician Filed: 02/23/11 1133 Note Time: 11/12/02 0001 Status: Signed Golf Cart Repairer: Xavier Vallecillo MD (Physician) IMPRESSION: Bone density on [facility]ologic [facility]. SUBJECTIVE: REFERRING PROVIDER: DIRK RUIZ MD INTERPRETING PHYSICIAN: Josiah VALLECILLO MD,PhD OSTEOPOROSIS RISK FACTORS FROM PATIENT QUESTIONNAIRE: A 62-year-old postmenopausal woman, who took HRT for the first three years of menopause but recently stopped it, inadequate calcium intake. OBJECTIVE: SITE BMD T-SCORE* %PEAK Z-SCORE %MATCHED ADULT PEER L1-L4 1.096 0.4 105% 1.9 123% Tot L Hip 1.052 0.9 112% 1.9 127% Fem Neck 0.888 0.4 105% 1.6 126% * The T-score = Standard Deviations Above/Below Mean Peak Adult The Z-score = Standard Deviations Above/Below Mean Age/Sex - Matched Peers WHO DEFINITIONS: Normal BMD: T-score > -1.0 Osteopenia: T-score between -1.0 and -2.5 Osteoporosis: T-score < -2.5 ASSESSMENT: Normal BMD of the lumbar spine, hip and femoral neck region. The BMD of these regions is above average for age. Fragility fracture risk is not increased. PLAN: (RECOMMENDATIONS) Optimize daily intake of calcium to at least 1200 mg and vitamin D to 400-800 IU. Consider repeat BMD in 4-5 years. [id number] C: 11/23/02 18:49 DOCUMENT: [id number] OR PORTFOLIO ANALYST Dirk Ruiz MD - 11/11/2002 12:01 AM CST Progress Notes signed by at 12/27/02 0001 Author: Dirk Ruiz MD Service: (none) Author Type: Physician Filed: 02/23/11 1131 Note Time: 11/11/02 0001 Status: Signed Golf Cart Repairer: Dirk Ruiz MD (Physician) IMPRESSION: Post menopausal symptoms off ERT, discussed, see above. SUBJECTIVE: Michele Pizarro, 62-year-old is here for menopausal symptoms. She stopped Prempro about four months ago and went on to develop hot flashes for three plus months but now it is finally letting up. We discussed progesterone creams, side effects and indications. She is also here for left ear pressure that she has had about three weeks and she is here for hypertension. She is running a little higher than usual. Today her BP was 140/100. She did not tolerate diuretic, refuses to take it and we discussed her regimen. She is working on weight loss and at this point request that we not add any medicines and she will start monitoring this and call me back in six weeks with BPs twice a week. She is 5'5 and weighs 195 and understands the need to get the weight down. Her mom had cancer of the liver, at 73. Dad, 77, of polycystic kidney. Patient has been evaluated for polycystic kidney. She has one sister with this. Another sister who is healthy but has obesity. Patient has no children. 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 Has never had a bone density and since she has stopped her Prempro we are going to do a bone density. Her history is negative for smoking and drinking. ADR/ALLERGIES: PENICILLIN AND SULFA. She has been taking her atenolol 50 a day and Prinivil 20 a day. OBJECTIVE: VS: P: 66. R: 16. Ht: 5 ft 5 in. Wt: 195. HEENT: Negative. Her neck was supple. Carotids normal. Thyroid normal. LUNGS: Clear. CORE: Regular. No murmur or gallop. ABDOMEN: Benign. EXTREMITIES: No CCE. DTRs symmetric. ASSESSMENT: 1. Post menopausal symptoms off ERT, discussed, see above. 2. Her HEENT exam did show bilateral serous otitis. She will be treated with a Z-kyree today. 3. BSON. 4. Hypertension, poor control. Call me back in four to six weeks with biweekly blood pressures and we have ordered a bone density. If her blood pressure does not come down consider increasing Prinivil or adding calcium channel jackie. Discussed with patient. PLAN: See assessment. TT: CT: [id number] C: 11/13/02 13:25 DOCUMENT: [id number] Kandi Wills 07/26/2001 12:01 AM CDT Progress Notes signed by at 08/05/01 1354 Author: Kandi Thompson MD Service: (none) Author Type: (none) Filed: 02/23/11 0049 Note Time: 07/26/012021 Status: Signed Golf Cart Repairer: Aline Conversion IMPRESSION: Cervical polyp with polyp removal. SUBJECTIVE: The patient is a 60-year-old female who I am asked to see by Dr. Ruiz for removal of cervical polyp. She was evidently in for bimanual exam, and was noted to have a small cervical polyp. She did have some spotting back in April. She is currently on Prempro 0.625 and 2.5. OBJECTIVE: BP: 144/88. Ht: 5 feet 4 inches. Wt: 197 pounds. Female in no apparent distress. External genitalia normal without lesions or masses. Urethral meatus: No lesions. Vagina pink and moist. Cervix large with a polyp sitting right at the cervical os. This was grasped with a ring forceps and easily removed. There was some bleeding from the stalk, and this was controlled with a silver nitrate stick. ASSESSMENT: Cervical polyp with polyp removal. PLAN: I will contact the patient with the results of her pathology report as soon as those become available to me. [id number] C: DOCUMENT: [id number] Dirk Gutierrez MD - 06/21/2001 12:01 AM CDT Progress Notes signed by Dirk Ruiz MD at 08/29/01 1408 Author: Dirk Ruiz MD Service: (none) Author Type: Physician Filed: 02/23/11 0008 Note Time: 06/21/012021 Status: Signed Golf Cart Repairer: Dirk Ruiz MD (Physician) IMPRESSION: Physical, age 60; hypertension; hyperlipidemia; renal insufficiency; obesity; hallux valgus left. SUBJECTIVE: A 60-year-old is here for physical. Last physical 1998. Normal Pap at that time. She has a history of hyperlipidemia, cholesterol last check was 240 with an HDL of 46. She has hypertension, renal insufficiency and she has been on estrogen replacement for a couple of years. History of D&C. Her last creatinine was 1.5. She was seen in nephrology . She has two sisters and one has polycystic kidney. They both have hypertension. Dad has polycystic kidney, was on dialysis. Mom of a hepatoma. 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 She has been checking her blood pressures, they have been averaging about 135/80. She has occasional heartburn, no chest pain, shortness of breath. She is very interested in weight loss. She is 5 foot, 4 1/2. Weighs 197. Last physical she was in the 180s, so she has gained about 12 pounds. I strongly suggested she get this weight down. She is on Prinivil 20, Prempro 0.625/2.5, Atenolol 50. Aspirin 81, enteric-coated. SHE IS ALLERGIC TO IV DYE, SULFA AND PENICILLIN. Her review of systems is negative for any or respiratory complaints, no skin concerns. 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 She has the same problem on the left but she is not going to repair this since her surgery was rather trying. She has no history of smoking or drinking. OBJECTIVE: BP: 144/90. P: 66. R: 16. HEENT exam is negative. Fundi benign. Cranial nerves intact. No carotid bruits. Thyroid normal. Lungs clear. Cor regular rate and rhythm, no adenopathy. Breasts without masses. Abdomen obese, no definite masses, no bruits. She has hallux valgus metatarsus primus left. Pelvic; she had a cervical polyp, some bleeding during the exam, no definite uterine enlargement or adnexal masses but difficult because of her size. Rectal was heme negative. Extremities; trace edema, pulses +1. ASSESSMENT: Physical, age 60; hypertension; hyperlipidemia; renal insufficiency; obesity; hallux valgus left. PLAN: UA, creatinine, BUN, potassium, cholesterol pending. Pap pending along with mammogram. Discussed the problem with her left large toe. Suggested calcium and vitamin D, exercise and weight loss program such as Weight Watchers. Might consider statin if her cholesterol is still high. [id number] C: DOCUMENT: [id number] Dirk Ruiz MD - 04/24/2000 12:01 AM CDT Progress Notes signed by Dirk Ruiz MD at 05/04/00 1441 Author: Dirk Ruiz MD Service: (none) Author Type: Physician Filed: 02/22/11 1703 Note Time: 04/24/00 0001 Status: Signed Golf Cart Repairer: Dirk Ruiz MD (Physician) IMPRESSION: Hypertension, uncontrolled. SUBJECTIVE: Michele Pizarro, 59, is here for hypertension. She has a history of hypertension since 1991. In she was seen in nephrology for renal insufficiency. She is due for follow up here in a few months. She also has a history of obesity which we discussed today. She is trying to get the weight down. She is 5 feet 5 inches, weighs 185 pounds. She is very active. She had an abdominal CT by Nephrology in august and that was unremarkable. REVIEW OF SYSTEMS: No chest pain, shortness of breath, weight change, adenopathy or health concerns. No recent cough or fevers. Her blood pressures have not been checked too frequently, but when they are they are a little elevated averaging maybe 150/110. Today she was 168/114. Respirations were 16. SHE IS ALLERGIC TO PENICILLIN, SULFA AND IV DYES. She works at [employer]. She is a nonsmoker and nondrinker. OBJECTIVE: BP: 168/114 R: 16 Ht: 5 feet 5 inches Wt: 185 pounds Her HEENT exam was negative. No carotid bruits. Thyroid normal. Fundi benign. Cranial nerves intact. Lungs clear. Heart regular rate and rhythm. Abdomen benign. No displacement of the PMI. EXTREMITIES: No CCE. ASSESSMENT: Hypertension, uncontrolled. PLAN: I am going to continue with the Prinivil 20 and add atenolol 25 mg for about one to two weeks. She will monitor the blood pressures. If it is not below 140/90, she will go to 50 mg of the atenolol which I suspect she will need and this was discussed. The side effects and indications were reviewed with her. She is due to have some lab tests for renal insufficiency in about two months, she will be contacting us, and we discussed weight control, exercise and low cholesterol diet. [id number] C: DOCUMENT: [id number] Conversion, Imr - 08/26/1999 12:01 AM CDT Progress Notes signed by at 06/11/01 3536 Author: [facility] Conversion Service: (none) Author Type: (none) Filed: 02/22/11 1312 Note Time: 08/26/99 0001 Status: Signed Golf Cart Repairer: Aline Conversion IMPRESSION: Hypertension, probably essential, and mild renal failure, probably dueto a hypertensive nephropathy. SUBJECTIVE: This 58-year-old woman is referred by Dr. Ruiz of [facility] for evaluation of mild azotemia, hypertension, and a family history of polycystic kidney disease. The patient, herself, apparently had an IVP 20 years ago, and was told it was normal. In , an ultrasound of the kidneys done here revealed no evidence of polycystic disease. More recently, at the time of a check by Dr. Ruiz, the patient was found to have a creatinine of 1.5 on 07/20/99, with a BUN of 21. Potassium was 5.3, glucose 102, cholesterol 240. Latter is being treated by diet. A urinalysis was normal except for 5 to 10 white cells per high powered field and 2 to 5 red cells. Latter of uncertain significance. No proteinuria. The patient has no voiding symptoms. The patient first was found to be hypertensive here in 1991. It is unknown how many years before that she may have had hypertension. Presently, hypertension is being treated with Prinivil 20 mg daily. Her only other medications are Premarin and a progestational agent. She was taking Maxzide at one time, but stopped it because her blood pressure seemed to get too low. A recent blood pressure check elsewhere before coming here was 133/66. FAMILY HISTORY: Her dad at age 77, after being on dialysis for several years at the [facility]. He had polycystic kidney disease. Cause of uncertain, however. The patient has a sister with polycystic kidney disease, and another one who is healthy. The patient has no children. REVIEW OF SYSTEMS: No cardiopulmonary complaints. No history of flank pain or gross hematuria. OBJECTIVE: VITAL SIGNS: WT: 182. BP: 148/96, by my nurse, and 150/98, by myself. GENERAL: Pertinent examination reveals a mildly obese woman. LUNGS: Clear. No epigastric bruits. I cannot feel kidneys. No edema. ALLERGIES: IV CONTRAST. ASSESSMENT: 1. Hypertension, probably essential. 2. Mild renal failure, probably due to a hypertensive nephropathy. Rule out polycystic kidney disease, but it seems unlikely in view of the studies she has had in the past. PLAN: 1. Repeat creatinine and check potassium today. 2. Schedule a CT scan of the abdomen with oral, but no IV contrast. 3. Continue Prinivil 20 mg daily. 4. Continue Premarin and progestational agent as before. 5. Return in ten days for follow-up, after having at least three blood pressure checks in drug stores, etc., in the mean time. CC: DIRK RUIZ MD DAD:[id number] C: DOCUMENT: [id number] SCHEDULED RESOURCE: EVIN MOODY MD Virgilio Win - 08/08/1999 12:01 AM CDT Progress Notes signed by Virgilio Murphy DO at 08/10/99 1023 Author: Virgilio Murphy DO Service: (none) Author Type: (none) Filed: 02/22/11 1253 Note Time: 08/08/99 0001 Status: Signed Golf Cart Repairer: Virgilio Murphy DO (Physician) IMPRESSION: Upper respiratory infection. SUBJECTIVE: N/A OBJECTIVE: N/A ASSESSMENT: Upper respiratory infection. PLAN: Symptomatic treatment. CC: [id number] C: DOCUMENT: [id number] Dirk Gutierrez MD - 07/20/1999 12:01 AM CDT Progress Notes signed by Dirk Ruiz MD at 08/08/99 1221 Author: Dirk Ruiz MD Service: (none) Author Type: Physician Filed: 02/22/11 1234 Note Time: 07/20/99 0001 Status: Signed Golf Cart Repairer: Dirk Ruiz MD (Physician) IMPRESSION: Physical, age 58. SUBJECTIVE: This 58-year-old is here for a physical. She is single. 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 She has no children. She has a history of hypertension for about 5 years, currently controlled with Prinivil 20 and Maxzide 25. She is also postmenopausal on estrogen replacement therapy. She has been on Premphase and continues to have some light spotting. Will be switching her to Prempro. She has had surgery on a bunion on her foot, otherwise just a D&C. REVIEW OF SYSTEMS: Negative for any GI, , respiratory, skin, or joint problems. No history of depression. FAMILY HISTORY: Sister has polycystic kidney as does her dad. Patient has had a work-up for this including ultrasound which is negative. Mom had cancer of the liver and in mid 70s. Patient recently had a mammogram that was normal. She had a flex a year ago. She is a nondrinker, nonsmoker. Pap 2 years ago, less than 2 years, and would like to wait to do that next year. Her cholesterol is 202 total with HDL of 43, LDL of 127. ALLERGY TO PENICILLIN, SULFA, AND IVP DYE. OBJECTIVE: BP: 112/80. Ht: 5'4 1/2. Wt: 186 (realizes ideal weight would be about 160 or less). Vital signs stable. HEENT: Negative. SKIN: Normal. No axillary, inguinal, or cervical adenopathy. Thyroid not enlarged. No carotid bruits. LUNGS: Clear. HEART: Regular rate and rhythm. BREASTS: Without masses. ABDOMEN: Benign without masses or organomegaly. Abdomen is protuberant. No obvious abnormalities. No CVA tenderness. EXTREMITIES: Show deep tendon reflexes to be symmetric. No clubbing, cyanosis, or edema. ASSESSMENT: Physical, age 58. PLAN: Total cholesterol plus HDL with creatinine, blood sugar, Hgb, urinalysis, AST, and potassium pending. Will contact patient with results. Discussed routine health care, hypertension, and estrogen replacement therapy. Will be switching her to Prempro and tetanus will be updated. She was having some spotting today and will reschedule a Pap. CC: [id number] C: DOCUMENT: [id number] Dirk Ruiz MD - 05/31/1999 12:01 AM CDT Progress Notes signed by Dirk Ruiz MD at 08/08/99 1144 Author: Dirk Ruiz MD Service: (none) Author Type: Physician Filed: 02/22/11 1145 Note Time: 05/31/99 0001 Status: Signed Golf Cart Repairer: Dirk Ruiz MD (Physician) IMPRESSION: Postmenopausal, on estrogen replacement therapy (ERT); hypertension, poorly controlled. SUBJECTIVE: Michele Pizarro is a 58-year-old who comes in for hypertension and ERT. She is menopausal now for a few years and has been on Premarin 0.625 mg day 1-25 cyclic, and Provera 10 mg day 15-25. She is doing well. She has no complaints. She has a physical scheduled in July and she has a mammogram scheduled. She also has high blood pressure. She has been checking her blood pressures and they have been averaging about 150/90. Today it was 145/95. SHE IS ALLERGIC TO PENICILLIN, SULFA AND IVP DYE, and she is tolerating her Prinivil 20 mg well. She is 5'5, weighs 180. She could lose about 15-20 pounds and we discussed that. She is a nondrinker and nonsmoker. OBJECTIVE: Her lungs were clear. Heart regular rate and rhythm, no displacement of the PMI, no murmur or gallop. Abdomen benign without bruits or masses. Fundi benign. Cranial nerves intact. DTRs symmetric. No clubbing, cyanosis or edema of the extremities. ASSESSMENT: Postmenopausal, on estrogen replacement therapy (ERT); hypertension, poorly controlled. PLAN: I suggested we add Maxzide 25 mg a day. Side effects were reviewed, and when she comes in for her physical, we can do some labs at that time. [id number] C: DOCUMENT: [id number] Mike López MD - 06/21/1998 12:01 AM CDT Progress Notes signed by Mike López MD at 09/20/981950 Author: Mike López MD Service: (none) Author Type: Physician Filed: 02/22/11 0554 Note Time: 06/21/98 0001 Status: Signed Golf Cart Repairer: Mike López MD (Physician) IMPRESSION: Normal flexible sigmoidoscopy to 60 cm. SUBJECTIVE: This 57-year-old female was seen for a routine flexible sigmoidoscopy at the request of Dr. Ruiz. She was prepped in the usual fashion. She denies any history of colon problems or family history of colon cancer. OBJECTIVE: After the usual prep she was brought to the endoscopy suite and the entire procedure was explained to her. She was placed in the left lateral position. The anal opening was lubricated with [place] Jelly and it appeared to be normal, as did the digital rectal exam. The Olympus flexible sigmoidoscope was passed with no difficulty to approximately 45 cm. As we progressed through this area of the sigmoid colon, she had a very tight curve that we were able to navigate without difficulty, but the cramping was quite significant at that point. Once we rounded that curve we could visualize at least 20 more centimeters of the sigmoid colon which appeared to be perfectly normal. The flexible sigmoidoscopy therefore was normal without any pathology such as diverticulitis, polyps, tumor, masses or any other pathology up to the 60 cm level. ASSESSMENT: Normal flexible sigmoidoscopy to 60 cm. PLAN: N/A cc: Dirk Ruiz M.D., [facility], [facility] OR PORTFOLIO ANALYST Dirk Ruiz MD - 04/13/1998 12:01 AM CDT Progress Notes signed by Dirk Ruiz MD at 04/27/98 0841 Author: Dirk Ruiz MD Service: (none) Author Type: Physician Filed: 02/22/11 0453 Note Time: 04/13/98 0001 Status: Signed Golf Cart Repairer: Dirk Ruiz MD (Physician) IMPRESSION: Hypertension. Hormone replacement therapy. Preventive medicine guideline. SUBJECTIVE: Patient is a 57-year-old who comes in for hormone replacement therapy discussion and refill of meds. Medications: Premarin, Provera cyclic. Prinivil for hypertension. Patient would like to get her weight down and has been getting some exercise. OBJECTIVE: BP: 148/96. Wt: 180 lb. Ht: 5'4. Exam today reveals HEENT negative. No carotid bruits. Thyroid not enlarged. Neck supple. Lungs clear. Heart regular rate and rhythm. No murmur or gallop. Abdomen benign without bruits, slightly protuberant. No organomegaly. Extremities: Pulses full. Skin color good, no edema. ASSESSMENT: Hypertension. Hormone replacement therapy. PLAN: We discussed hypertension at length. She has white coat syndrome. She says her blood pressures that she checks at least monthly have been less than 140/90. Sometimes her diastolic is even in the low 80's. We discussed preventative health and she has never had a flex. I strongly recommended that she schedule this and information was given. We also scheduled a mammogram. It has been over a year since the last one. pjc Dirk Ruiz MD - 03/12/1997 12:01 AM CDT Progress Notes signed by Dirk Ruiz MD at 04/03/97 1133 Author: Dirk Ruiz MD Service: (none) Author Type: Physician Filed: 02/21/11 6497 Note Time: 03/12/97 0001 Status: Signed Golf Cart Repairer: Dirk Ruiz MD (Physician) IMPRESSION: Physical, age 56. Hypertension. SUBJECTIVE: Michele Pizarro is a 56-year-old who comes in for a physical. Her last period was three weeks ago. Her last Pap was ten years ago. She understands that the indications are every three years at the minimum. Her tetanus is also over ten years, but she would not like to update that. She has a history of hypertension and in January was in for this. It was 165/100, and she was started on Prinivil 10 mg. Today her blood pressure is 154/90, and she has been watching it. She has cut down on some salt and trying to get the weight down. Her cholesterol at the last visit was 202 with an HDL of 43 so we started a low-cholesterol diet. I suggested she schedule a flexible sigmoidoscopy at that time. FAMILY HISTORY: She has a family history of polycystic kidney and hypertension in her father. She has two sisters with rheumatoid arthritis. She also has a family history of liver cancer in her mom. Michele has had no arthritis, and she has had an IVP and ultrasound of her kidneys which were negative. The only surgery that she has ever had has been on a bunion and a dilation and curettage. She is not and has no children. 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 She is very active. REVIEW OF SYSTEMS: Positive for some achiness of the knees, elbows, wrists, and shoulders intermittently. A recent sedimentation was negative. Exam and history did not suggest rheumatoid arthritis like her sister's have. She denies any side effects with the Prinivil, she has been on 10 mg and will increase that to 20 mg. Her blood pressures have been averaging about 150/90. Review of systems, other than the joint complaints which are vague and intermittent, is negative for skin changes, GI, respiratory, or weight changes. MEDICATIONS: She also takes an aspirin 81 mg every day. ADVERSE DRUG REACTIONS: PENICILLIN, SULFA, and IVP DYE. She is also a nonsmoker. OBJECTIVE: BP: 154/90 Ht: 5'5'' Wt: 177 PHYSICAL EXAMINATION: HEENT exam negative. Thyroid not enlarged. No carotid bruits. Fundi benign. Lungs clear. Heart: Regular rate and rhythm. Abdomen benign with no organomegaly, masses, or bruits. Rectal: Hemoccult negative with no masses. Pelvic: Normal external genitalia. Uterus not enlarged. No definite adnexal masses. Pap obtained. Breasts: No masses. No adenopathy. Extremities negative. Pulses full. Deep tendon reflexes symmetric. Skin normal. ASSESSMENT: 1. Physical, age 56. 2. Hypertension. PLAN: 1. Mammogram ordered. 2. Discussed osteoarthritis, estrogen replacement therapy, and hypertension at length. 3. Suggested she start estrogen replacement therapy. She was given literature, and she will review it. 4. Follow-up in one year. 5. She should call me in one month with blood pressures. stc irk Dunn MD - 01/29/1997 12:01 AM CST Progress Notes signed by Dirk Ruiz MD at 04/03/97 1018 Author: Dirk Ruiz MD Service: (none) Author Type: Physician Filed: 02/21/11 2253 Note Time: 01/29/97 0001 Status: Signed Golf Cart Repairer: Dirk Ruiz MD (Physician) IMPRESSION: Dyspepsia by history and examination. SUBJECTIVE: Michele Pizarro is a 57-year-old who comes in for belching and epigastric discomfort with a little abdominal pressure for 3 days. No chest pain or shortness of breath. No travel or recent illness. No fever, diarrhea, vomiting, or constipation, or cough. She considers herself healthy but has not had a Pap in over ten years. I suggested strongly that she schedule this. She was seen in November of 1992 because of a family history of polycystic kidney. She had an ultrasound of the kidneys that was negative and an IVP. She was allergic to IVP dye. Blood pressure today is 164/100. She has had borderline hypertension in the past. 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 She is on no medications. ADVERSE DRUG REACTIONS: Allergies: IVP DYE, PENICILLIN, AND SULFA. She is a nonsmoker, nondrinker. OBJECTIVE: BP: 164/100. HEENT examination is negative. Lungs are clear. Heart: Regular rate and rhythm. Abdomen is benign without any rebound, guarding, or masses. Slight epigastric discomfort with deep palpation of the epigastric area. No CVA tenderness. Extremities are normal, no clubbing, cyanosis or edema. EKG shows a normal sinus rhythm. ASSESSMENT: Dyspepsia by history and examination. PLAN: 1. Because she is not in too often, I have scheduled a cholesterol with profile, CBC, and a urinalysis. I will contact the patient with the results. 2. TUMS have been helping. I suggested Pepcid two tabs b.i.d. for a week and then taper. 3. Follow up in one month with blood pressure readings twice a week. At this point she does not wish to start any medicine. 4. She promises to schedule a physical. std documented in this encounter Plan of Treatment Not on filedocumented as of this encounter Procedures Procedure Name Priority Date/Time Associated Comments Diagnosis MM MAMMOGRAM DIAG Routine 08/26/2001 7:35 AM Resu lts for this BILAT W CAD CDT procedure are i n the results section. SURGICAL ELENA MANCIA Routine 07/26/2001 12:49 PM R esults for this NICOLLET CDT procedure are i n the results section. URINALYSIS COMPLETE Routine 06/21/2001 1:54 PM Re sults for this HOLD CULTURE CDT procedure are i n the results section. LIPID PROFILE= Routine 06/21/2001 1:54 PM Results for this CHOL,TRIG,HDL,LDL CDT procedure are in the results section. CREATININE / GFR Routine 06/21/2001 1:54 PM Resul ts for this CDT procedure are i n the results section. POTASSIUM Routine 06/21/2001 1:54 PM Results f or this CDT procedure are i n the results section. BUN Routine 06/21/2001 1:54 PM Results f or this CDT procedure are i n the results section. ANATOMICAL PATH-C Routine 06/21/2001 6:51 AM Resu lts for this CDT procedure are i n the results section. MM MAMMOGRAM Routine 08/20/2000 4:35 PM Results f or this SCREENING W CAD CDT procedure ar e in the results section. CREATININE / GFR Routine 08/26/1999 3:55 PM Resul ts for this CDT procedure are i n the results section. POTASSIUM Routine 08/26/1999 3:55 PM Results f or this CDT procedure are i n the results section. ANATOMICAL PATH-C Routine 07/20/1999 1:11 PM Resu lts for this CDT procedure are i n the results section. GLUCOSE Routine 07/20/1999 9:00 AM Results f or this CDT procedure are i n the results section. URINALYSIS COMPLETE Routine 07/20/1999 9:00 AM Re sults for this CDT procedure are i n the results section. CREATININE / GFR Routine 07/20/1999 9:00 AM Resul ts for this CDT procedure are i n the results section. HEMOGLOBIN, BLOOD Routine 07/20/1999 9:00 AM Resu lts for this CDT procedure are i n the results section. CHOLESTEROL, TOTAL Routine 07/20/1999 9:00 AM Res ults for this AND HDL CDT procedure are i n the results section. AST Routine 07/20/1999 9:00 AM Results f or this CDT procedure are i n the results section. POTASSIUM Routine 07/20/1999 9:00 AM Results f or this CDT procedure are i n the results section. BUN Routine 07/20/1999 9:00 AM Results f or this CDT procedure are i n the results section. MM MAMMOGRAM DIAG Routine 07/20/1999 7:35 AM Resu lts for this BILAT W CAD CDT procedure are i n the results section. MM MAMMOGRAM Routine 05/18/1998 8:40 AM Results f or this SCREENING W CAD CDT procedure ar e in the results section. MM MAMMOGRAM DIAG Routine 05/18/1997 7:20 PM Resu lts for this BILAT W CAD CDT procedure are i n the results section. US BX PANCREAS Routine 11/25/1992 9:15 AM Results for this SENIOR PORTFOLIO ANALYST procedure are i n the results section. documented in this encounter Results MM Mammogram Diag Bilat W CAD (08/26/2001 7:35 AM CDT) Anatomical Region Laterality Modality Breast Bilateral Mammography Specimen (Source) Anatomical Location Collection Method / Collectio n Time Received Time / Laterality Volume Impressions 08/26/2001 7:35 AM CDT : ?? NO MAMMOGRAPHIC EVIDENCE OF MALIGNAN CY. ACR-BIRADS CATEGORY 1: ??NEGATIVE. FINDINGS: ?? M3U ?? THE BREASTS ARE MILDLY TO MODERATELY DENSE. ??THIS MAY LOWER THE ?? SENSITIVITY OF MAMMOGRAPHY. ??THERE ARE NO SUSPICIOUS MASSES OR ?? CALCIFICATIONS. ?? NO CHANGE IN APPEARANCE FROM 0. TECH-ID : TRANS-ID: Narrative 08/26/2001 7:35 AM CDT SEVERITY: 1 CLINICAL DATA: ?ROUTINE ?LAST [id number] ?? BKED [id number] ??WILFREDO O Procedure Note Manpreet Mcdonnell - 01/09/2017 SEVERITY: 1 CLINICAL DATA: ROUTINE LAST [id number] BKED [id number] WILFREDO O IMPRESSION : NO MAMMOGRAPHIC EVIDENCE OF MALIGNANCY. ACR-BIRADS CATEGORY 1: NEGATIVE. FINDINGS: M3U THE BREASTS ARE MILDLY TO MODERATELY DE NSE. THIS MAY LOWER THE SENSITIVITY OF MAMMOGRAPHY. THERE ARE N O SUSPICIOUS MASSES OR CALCIFICATIONS. NO CHANGE IN APPEARANCE FROM 08/20/00. TECH-ID : TRANS-ID: Dirk Ruiz MD RAD [facility] Pathology Report (07/26/2001 12:49 PM CDT) [facility] gist Method Time Signature Surgical SEE TEXT No normal HP CONVERSION Pathology range Comment: Patient: MICHELE PIZARRO ?S URGICAL PATHOLOGY REPORT Pathology # ??[id number] ?Date Obtained: ? Date Received: DIAGNOSIS: ?Benign non-neoplastic polyp of the endocervix showing mild to moderate ?acute inflammatory changes and pro nounced chronic inflammatory changes. ?Hema Bernstein M.D. ?(electronic signature) ENM/ENM/kmr Date of Report: 07/29/01 Pathology # ??[id number] ?Date Obtained: ? Date Received: ORGAN/TISSUE SITE: ?Cervix GROSS DESCRIPTION: ?The specimen is designated cervic al polypectomy. ??It consists of a ?polypoid soft tissue structure wit h some associated mucoid material, which ?measures approximately 5 x 5 x 4 m m. ?The entire specimen is submitted f or microscopic examination. ENM/kmr Specimen (Source) Anatomical Collection Method Collection Time Re ceived Time Location / / Volume Laterality 07/26/2001 12:49 PM CDT Kandi Thompson MD LAB_1 Performing Organization Address City/[facility]/ZIP Code Phon e Number HP CONVERSION (ABNORMAL) Urinalysis Complete Hold Culture (06/21/2001 1:54 PM CDT) [facility] Method Time Signature U Specific 1.010 1.005 - 25 HP CONVERSION Saffell pH Urine 6.0 4.5 - 7.5 HP CONVERSION Protein Urine Negative Neg-Trac HP CONVERSION Glucose, Negative Neg-Trac HP CONVERSION Qualitative U Ketones Negative Negative HP CONVERSION U BILI Negative Negative HP CONVERSION Blood Urine Moderate Negative HP CONVERSION (A) Nitrite Urine Negative Negative HP CONVERSION Leukocyte Negative Negative HP CONVERSION Esterase Urine Urobilinogen Negative 0.2 - 1.0 HP CONVERSION Urine White Blood Negative 0 - 3 /HPF HP CONVERSION Cells Urine Red Blood Cells 2-5 (A) 0 - 2 /HPF HP CONVERSION Urine Hold For Yes No normal HP CONVERSION Culture? range Specimen (Source) Anatomical Collection Method Collection Time Re ceived Time Location / / Volume Laterality 06/21/2001 1:54 PM CDT Dirk Ruiz MD LAB_1 Performing Organization Address [facility] Phon e Number HP CONVERSION BUN (06/21/2001 1:54 PM CDT) P athologist Signature Blood Urea 13 5 - 26 HP CONVERSION Nitrogen mg/dL Specimen (Source) Anatomical Collection Method Collection Time Re ceived Time Location / / Volume Laterality 06/21/2001 1:54 PM CDT Dirk Ruiz MD LAB_1 Performing Organization Address [facility] Phon e Number HP CONVERSION Creatinine / GFR (06/21/2001 1:54 PM CDT) P athologist Signature Creatinine 0.9 0.5 - 1.5 HP CONVERSION Serum mg/dL Specimen (Source) Anatomical Collection Method Collection Time Re ceived Time Location / / Volume Laterality 06/21/2001 1:54 PM CDT Dirk Ruiz MD LAB_1 Performing Organization Address City/State/ZIP Code Phon e Number HP CONVERSION Potassium (06/21/2001 1:54 PM CDT) P athologist Signature Potassium 3.7 3.5 - 5.2 HP CONVERSION meq/L Specimen (Source) Anatomical Collection Method Collection Time Re ceived Time Location / / Volume Laterality 06/21/2001 1:54 PM CDT Dirk Ruiz MD LAB_1 Performing Organization Address City/State/ZIP Code Phon e Number HP CONVERSION (ABNORMAL) Lipid Profile= Chol,Trig,HDL,LDL (06/21/2001 1:54 PM CDT) Patholo gist Method Time Signature Cholesterol/HDL 4.5 No normal HP CONVERSION Ratio Screen range Triglycerides 239 (HH) 0 - 199 HP CONVERSION mg/dL HDL Cholesterol 52 36 - 80 HP CONVERSION mg/dL LDL Calculated 132 (HH) 66 - 129 HP CONVERSION mg/dL Cholesterol 232 (HH) 125 - 199 HP CONVERSION mg/dL Specimen (Source) Anatomical Collection Method Collection Time Re ceived Time Location / / Volume Laterality 06/21/2001 1:54 PM CDT Dirk Ruiz MD LAB_1 Performing Organization Address City/[facility]/ZIP Code Phon e Number HP CONVERSION Anatomical Path-C (06/21/2001 6:51 AM CDT) P athologist Signature PAP Smear SEE TEXT No normal HP CONVERSION range Comment: Patient: MICHELE PIZARRO ? CERVICAL CYTOLOGY REPORT Pathology # ??[id number] ?Date Obtained: ? Date Received: LMP: CLINICAL HIST CERVICAL SMEAR SPECIMEN ADEQUACY: ?? Satisfactory. ENDOCERVICAL CELLS: ??Present. CYTOLOGIC IMPRESSION: Within Normal Limits (Negative). Verified 07/01/01 by: ??ARC ?(electronic signature) Specimen (Source) Anatomical Collection Method Collection Time Re ceived Time Location / / Volume Laterality 06/21/2001 6:51 AM CDT Dirk Ruiz MD LAB_1 Performing Organization Address City/State/ZIP Code Phon e Number HP CONVERSION MM Mammogram Screening W CAD (08/20/2000 4:35 PM CDT) Anatomical Region Laterality Modality Breast Bilateral Mammography Specimen (Source) Anatomical Location Collection Method / Collectio n Time Received Time / Laterality Volume Impressions 08/20/2000 4:35 PM CDT : ?? NO MAMMOGRAPHIC EVIDENCE OF MALIGNAN CY. ACR-BIRADS CATEGORY 1: ??NEGATIVE. FINDINGS: ?? M3U ?? THE BREASTS ARE MILDLY TO MODERATELY DENSE. ??THIS MAY LOWER THE ?? SENSITIVITY OF MAMMOGRAPHY. ??THERE ARE NO SUSPICIOUS MASSES OR ?? CALCIFICATIONS. ?? NO CHANGE IN APPEARANCE FROM 9. TECH-ID : TRANS-ID: Narrative 08/20/2000 4:35 PM CDT SEVERITY: 1 CLINICAL DATA: ?ROUTINE ?LAST MAMMO [id number] [facility] [id number] Procedure Note Kashif Simpson R - 01/09/2017 SEVERITY: 1 CLINICAL DATA: ROUTINE LAST MAMMO [id number] [facility] [id number] IMPRESSION : NO MAMMOGRAPHIC EVIDENCE OF MALIGNANCY. ACR-BIRADS CATEGORY 1: NEGATIVE. FINDINGS: M3U THE BREASTS ARE MILDLY TO MODERATELY DE NSE. THIS MAY LOWER THE SENSITIVITY OF MAMMOGRAPHY. THERE ARE N O SUSPICIOUS MASSES OR CALCIFICATIONS. NO CHANGE IN APPEARANCE FROM 07/20/99. TECH-ID : TRANS-ID: Dirk Ruiz MD RAD [place] Creatinine / GFR (08/26/1999 3:55 PM CDT) P athologist Signature Creatinine 1.2 0.5 - 1.5 HP CONVERSION Serum mg/dL Specimen (Source) Anatomical Collection Method Collection Time Re ceived Time Location / / Volume Laterality 08/26/1999 3:55 PM CDT Evin Moody MD LAB_1 Performing Organization Address City/State/ZIP Code Phon e Number HP CONVERSION Potassium (08/26/1999 3:55 PM CDT) athologist Signature Potassium 4.8 3.5 - 5.2 HP CONVERSION meq/L Specimen (Source) Anatomical Collection Method Collection Time Re ceived Time Location / / Volume Laterality 08/26/1999 3:55 PM CDT Evin Moody MD LAB_1 Performing Organization Address [facility]/ZIP Code Phon e Number HP CONVERSION Anatomical Path-C (07/20/1999 1:11 PM CDT) athologist Signature PAP Smear SEE TEXT No normal HP CONVERSION range Comment: Patient: MICHELE PIZARRO ? CERVICAL CYTOLOGY REPORT Pathology # ??[id number] ?Date Obtained: [id number] ? Date Received: [id number] LMP: CLINICAL HIST CERVICAL SMEAR SPECIMEN ADEQUACY: ?? Satisfactory. ENDOCERVICAL CELLS: ??Absent; patient is post-menopausal. CYTOLOGIC IMPRESSION: Within Normal Limits (Negative). Verified 07/27/99 by: ??PC ? (electronic signature) Specimen (Source) Anatomical Collection Method Collection Time Re ceived Time Location / / Volume Laterality 07/20/1999 1:11 PM CDT Dirk Ruiz MD LAB_1 Performing Organization Address City/[facility]/ZIP Code Phon e Number HP CONVERSION AST (07/20/1999 9:00 AM CDT) [facility] Method Time Signature Aspartate 22 0 - 45 HP CONVERSION Aminotransferase U/L Specimen (Source) Anatomical Collection Method Collection Time Re ceived Time Location / / Volume Laterality 07/20/1999 9:00 AM CDT Dirk Ruiz MD LAB_1 Performing Organization Address City/State/ZIP Code Phon e Number HP CONVERSION (ABNORMAL) BUN (07/20/1999 9:00 AM CDT) athologist Signature Blood Urea 31 (HH) 5 - 26 HP CONVERSION Nitrogen mg/dL Specimen (Source) Anatomical Collection Method Collection Time Re ceived Time Location / / Volume Laterality 07/20/1999 9:00 AM CDT Dirk Ruiz MD LAB_1 Performing Organization Address City/State/ZIP Code Phon e Number HP CONVERSION (ABNORMAL) Cholesterol, Total and HDL (07/20/1999 9:00 AM CDT) [facility] Method Time Signature Cholesterol 240 (HH) 125 - 199 HP CONVERSION mg/dL HDL Cholesterol 46 36 - 80 HP CONVERSION mg/dL Cholesterol/HDL 5.2 No normal HP CONVERSION Ratio Screen range Specimen (Source) Anatomical Collection Method Collection Time Re ceived Time Location / / Volume Laterality 07/20/1999 9:00 AM CDT Dirk Ruiz MD LAB_1 Performing Organization Address City/[facility]/ZIP Code Phon e Number HP CONVERSION Creatinine / GFR (07/20/1999 9:00 AM CDT) athologist Signature Creatinine 1.5 0.5 - 1.5 HP CONVERSION Serum mg/dL Specimen (Source) Anatomical Collection Method Collection Time Re ceived Time Location / / Volume Laterality 07/20/1999 9:00 AM CDT Dirk Ruiz MD LAB_1 Performing Organization Address City/State/ZIP Code Phon e Number HP CONVERSION Glucose (07/20/1999 9:00 AM CDT) athologist Signature Lab Glucose 102 70 - 115 HP CONVERSION mg/dL Specimen (Source) Anatomical Collection Method Collection Time Re ceived Time Location / / Volume Laterality 07/20/1999 9:00 AM CDT Dirk Ruiz MD LAB_1 Performing Organization Address City/State/ZIP Code Phon e Number HP CONVERSION (ABNORMAL) Potassium (07/20/1999 9:00 AM CDT) athologist Signature Potassium 5.3 (HH) 3.5 - 5.2 HP CONVERSION mmol/L Specimen (Source) Anatomical Collection Method Collection Time Re ceived Time Location / / Volume Laterality 07/20/1999 9:00 AM CDT Dirk Ruiz MD LAB_1 Performing Organization Address [facility] Phon e Number HP CONVERSION Hemoglobin, Blood (07/20/1999 9:00 AM CDT) athologist Signature Hemoglobin 13.3 11.8 - 15.5 HP CONVERSION gm/dL Specimen (Source) Anatomical Collection Method Collection Time Re ceived Time Location / / Volume Laterality 07/20/1999 9:00 AM CDT Dirk Ruiz MD LAB_1 Performing Organization Address [facility] Phon e Number HP CONVERSION (ABNORMAL) Urinalysis Complete (07/20/1999 9:00 AM CDT) [facility] gist Method Time Signature Glucose, Negative Neg-Trac HP CONVERSION Qualitative U Protein Urine Negative Neg-Trac HP CONVERSION Ketones Negative Negative HP CONVERSION U BILI Negative Negative HP CONVERSION U Specific 1.015 1.005 - 25 HP CONVERSION Saffell Blood Urine Small (A) Negative HP CONVERSION pH Urine 5.0 4.5 - 7.5 HP CONVERSION Urobilinogen Negative 0.2 - 1.0 HP CONVERSION Urine Nitrite Urine Negative Negative HP CONVERSION Leukocyte Negative Negative HP CONVERSION Esterase Urine White Blood 5-10 (A) 0 - 3 /HPF HP CONVERSION Cells Urine Red Blood Cells 2-5 (A) 0 - 3 /HPF HP CONVERSION Urine Bacteria Urine Moderate None HP CONVERSION (A) Epithelial Cells Many Few /HPF HP CONVERSION Specimen (Source) Anatomical Collection Method Collection Time Re ceived Time Location / / Volume Laterality 07/20/1999 9:00 AM CDT Dirk Ruiz MD LAB_1 Performing Organization Address City/[facility]/ZIP [facility] Phon e Number HP CONVERSION MM Mammogram Diag Bilat W CAD (07/20/1999 7:35 AM CDT) Anatomical Region Laterality Modality Breast Bilateral Mammography Specimen (Source) Anatomical Location Collection Method / Collectio n Time Received Time / Laterality Volume Impressions 07/20/1999 7:35 AM CDT : ?? NO MAMMOGRAPHIC EVIDENCE OF MALIGNAN CY. ACR-BIRADS CATEGORY 1: ??NEGATIVE. FINDINGS: ?? M3U ?? THE BREASTS ARE MILDLY TO MODERATELY DENSE. ??THIS MAY LOWER THE ?? SENSITIVITY OF MAMMOGRAPHY. ??THERE ARE NO SUSPICIOUS MASSES OR ?? CALCIFICATIONS. ?? NO CHANGE IN APPEARANCE FROM 8. TECH-ID : ? 35 TRANS-ID: Narrative 07/20/1999 7:35 AM CDT SEVERITY: 1 CLINICAL DATA: ?ROUTINE ?BKD [id number] ??PT SCHED Procedure Note Elier Espinal - 01/09/2017Formatting o f this note might be different from the original. SEVERITY: 1 CLINICAL DATA: ROUTINE BKD PT SCHED IMPRESSION : NO MAMMOGRAPHIC EVIDENCE OF MALIGNANCY. ACR-BIRADS CATEGORY 1: NEGATIVE. FINDINGS: M3U THE BREASTS ARE MILDLY TO MODERATELY DE NSE. THIS MAY LOWER THE SENSITIVITY OF MAMMOGRAPHY. THERE ARE N O SUSPICIOUS MASSES OR CALCIFICATIONS. NO CHANGE IN APPEARANCE FROM 05/18/98. TECH-ID : 35 TRANS-ID: Dirk Ruiz MD RAD [place] MM Mammogram Screening W CAD (05/18/1998 8:40 AM CDT) Anatomical Region Laterality Modality Breast Bilateral Mammography Specimen (Source) Anatomical Location Collection Method / Collectio n Time Received Time / Laterality Volume Impressions 05/18/1998 8:40 AM CDT : ?? NO MAMMOGRAPHIC EVIDENCE OF MALIGNAN CY. FINDINGS: ?? M3U ?? BREAST TISSUE IS MODERATELY DENSE; T HIS SOMEWHAT DECREASES ?? DIAGNOSTIC SENSITIVITY. ??NO SUSPICI OUS MASSES OR CALCIFICATIONS ?? ARE SEEN. ?? NO CHANGE FROM 05/18/97. TECH-ID : ? 35 TRANS-ID: Narrative 05/18/1998 8:40 AM CDT SEVERITY: 1 CLINICAL DATA: ?ROUTINE ?BKD Procedure Note Marcos Dorsey - 01/09/2017 SEVERITY: 1 CLINICAL DATA: ROUTINE BKD IMPRESSION : NO MAMMOGRAPHIC EVIDENCE OF MALIGNANCY. FINDINGS: M3U BREAST TISSUE IS MODERATELY DENSE; THIS SOMEWHAT DECREASES DIAGNOSTIC SENSITIVITY. NO SUSPICIOUS M ASSES OR CALCIFICATIONS ARE SEEN. NO CHANGE FROM 05/18/97. TECH-ID : 35 TRANS-ID: Dirk Ruiz MD RAD [place] MM Mammogram Diag Bilat W CAD (05/18/1997 7:20 PM CDT) Anatomical Region Laterality Modality Breast Bilateral Mammography Specimen (Source) Anatomical Location Collection Method / Collectio n Time Received Time / Laterality Volume Impressions 05/18/1997 7:20 PM CDT : ?? NO MAMMOGRAPHIC EVIDENCE OF MALIGNAN CY. FINDINGS: ?? M3 ?? BREAST TISSUE IS MODERATELY DENSE; T HIS SOMEWHAT DECREASES ?? DIAGNOSTIC SENSITIVITY. ??NO SUSPICI OUS MASSES OR CALCIFICATIONS ?? ARE SEEN. TECH-ID : ? TMS TRANS-ID: Narrative 05/18/1997 7:20 PM CDT SEVERITY: 1 CLINICAL DATA: ?ROUTINE ?BOOKED [id number] Procedure Note Marcos Dorsey - 01/09/2017 SEVERITY: 1 CLINICAL DATA: ROUTINE BOOKED IMPRESSION : NO MAMMOGRAPHIC EVIDENCE OF MALIGNANCY. FINDINGS: M3 BREAST TISSUE IS MODERATELY DENSE; THIS SOMEWHAT DECREASES DIAGNOSTIC SENSITIVITY. NO SUSPICIOUS M ASSES OR CALCIFICATIONS ARE SEEN. TECH-ID : TMS TRANS-ID: Dirk Ruiz MD RAD [facility] US Bx Pancreas (11/25/1992 9:15 AM SENIOR PORTFOLIO ANALYST) Anatomical Region Laterality Modality Abdomen Other Specimen (Source) Anatomical Location Collection Method / Collectio n Time Received Time / Laterality Volume Impressions 11/25/1992 9:15 AM SENIOR PORTFOLIO ANALYST : ?WITHIN NORMAL LIMITS. FINDINGS: ?THE LEFT KIDNEY MEASURES APPROXIMA TELY 10.9 AND THE RIGHT ?KIDNEY APPROXIMATELY 10.6 CM IN LE NGTH. ??SHAPE AND ?ECHOGENICITY OF BOTH KIDNEYS APPEA RS UNREMARKABLE. ??THERE IS ?NO EVIDENCE FOR HYDRONEPHROSIS OR DEFINITE CYSTIC ABNORMALITY ?INVOLVING EITHER KIDNEY. ??NO OTHE R ABNORMALITY IS SEEN. TECH-ID : TRANS-ID: ? PKP Narrative 11/25/1992 9:15 AM SENIOR PORTFOLIO ANALYST CLINICAL DATA: ?KIDNEY-FAMILY HX OF POLYCYSTIC DIS EASE ?BOOKED Procedure Note Jitendra Dorsey MD - 01/09/2017Form atting of this note might be different from the original. CLINICAL DATA: KIDNEY-FAMILY HX OF POLYCYSTIC DISEASE BOOKED IMPRESSION : WITHIN NORMAL LIMITS. FINDINGS: THE LEFT KIDNEY MEASURES APPROXIMATELY 10.9 AND THE RIGHT KIDNEY APPROXIMATELY 10.6 CM IN LENGTH. SHAPE AND ECHOGENICITY OF BOTH KIDNEYS APPEARS UN REMARKABLE. THERE IS NO EVIDENCE FOR HYDRONEPHROSIS OR DEFIN ITE CYSTIC ABNORMALITY INVOLVING EITHER KIDNEY. NO OTHER ABNOR MALITY IS SEEN. TECH-ID : TRANS-ID: PKP Dirk Ruiz MD [facility] [place] documented in this encounter Visit Diagnoses Not on filedocumented in this encounter Care Teams Sales Representative Trainee Relationship Specialty Start Date End Date Dirk Ruiz MD PCP - General 02/05/11 04/15/15 [id number] [place] [address] documented as of this encounter
[2022-08-15 16:57] LABS: Albumin* 4.4 g/dL (3.3-5.0); Chloride* 103 mmol/L (96-114); Potassium* 3.9 mmol/L (3.6-5.1); Sodium* 142 mmol/L (135-149)
[2022-08-15 16:59] LABS: Carbon Dioxide* 30 mmol/L (20-32); Cholesterol* 137 mg/dL (90-199); Estimated Glomerular Filt Rate 57 ml/min
[2022-08-15 17:00] LABS: Alanine Aminotransferase* 14 U/L (4-35); Alkaline Phosphatase* 102 U/L (40-150); Aspartate Amino Transferase* 23 U/L (12-35); Bilirubin Total* 0.2 mg/dL (0.1-1.5); Blood Urea Nitrogen* 23 mg/dL (7-30); Calcium* 9.1 mg/dL (8.4-10.6); Glucose* 101 mg/dL (60-115); HDL Cholesterol* 49 mg/dL (>=50); LDL Cholesterol Calculated 64 mg/dL (<100); Total Protein* 6.7 g/dL (6.0-8.3); Triglycerides* 122 mg/dL (40-149)
[2022-08-15 17:49] LABS: Vitamin B12* 650 pg/mL (243-894)
[2022-08-16 09:35] LABS: Immature Reticulocyte Fraction 9.8 % (3.0-15.9); Reticulocyte Hemoglobin Equivi 29.1 pg (29.0-35.0); Reticulocyte Percent 1.4 % (0.5-2.0); Reticulocytes Absolute 0.06 # (0.03-0.08)
[2022-08-16 10:08] LABS: Iron* 70 ug/dL (37-170)
[2022-08-16 10:16] LABS: Ferritin* 84.4 ng/mL (11.1-264.0)
[2022-08-16 10:17] LABS: Percent Iron Saturation 21 % (20-50); Total Iron Binding Capacity 332 ug/dL (265-497)
== END 2022-08-15 14:47 | disposition home or self-care (01) ==
PROVIDERS: PCP Family Medicine; Visit Provider Family Medicine
DX: Z00.00 Encounter for general adult medical examination without abnormal findings (principal); E03.9 Hypothyroidism, unspecified; E78.5 Hyperlipidemia, unspecified; I10 Essential (primary) hypertension; Z86.39 Personal history of other endocrine, nutritional and metabolic disease
CPT/HCPCS: 80053; 80061; 82607; 82728; 83540; 83550; 84443; 85045

== ENCOUNTER 2023-03-21 10:54 | Emergency (ER) | payer MEDICARE, BC, SELFPAY ==
[2023-03-21 11:16] VITALS: BP 160/86; PULSE 82; RESP 18; TEMP 36.6; O2SAT 97; BMI 29.2
--- NOTE | 2023-03-21 11:39 | ED_ITS ---
HPI - General Adult General Chief complaint: Altered Mental Status Stated complaint: Confusion Time Seen by Provider: 03/21/23 11:31 History of Present Illness HPI narrative: Patient is an 82 year white female lives at the [facility] independently. She stated today she was feeling little bit anxious and that made her little concerned. She has been recently stopped from her thyroid medicine. As she was not felt to need that. The patient reports no chest pain breathing problem n eurologic complaint or other issue at present. No fevers , chills, cough , no dysuria or frequency. She walked over from the [facility] as she called the nurse line and they asked her to come to the ER. She has been eating and drinking normally. Staff at no concerns about her to nursing staff she is alert and oriented x3 Related Data Home Medications Medication Instructions Recorded Confirmed cholecalciferol (vitamin D3) 25 25 mcg PO QDAY 08/15/22 03/21/23 mcg (1,000 unit) capsule Previous Rx's Medication Instructions Recorded cyanocobalamin (vitamin B-12) 1,000 mcg PO QDAY #90 caps 10/26/22 1,000 mcg capsule hydrochlorothiazide 12.5 mg capsule 12.5 mg PO QAM #90 caps 10/26/22 levothyroxine 75 mcg capsule 75 mcg PO QDAY #90 caps 10/26/22 metoprolol succinate 25 mg 25 mg PO QDAY #90 tabs 10/26/22 tablet,extended release 24 hr metoprolol succinate 50 mg 50 mg PO QDAY #90 tabs 10/26/22 tablet,extended release 24 hr simvastatin 20 mg tablet 20 mg PO QDAY #90 tabs 10/26/22 valsartan 160 mg tablet 160 mg PO QDAY #90 tabs 10/26/22 Allergies Allergy/AdvReac Type Severity Reaction Status Date / Time Iodinated Contrast Media Allergy Severe Anaphylaxis Verified 03/21/23 11:16 Penicillins Allergy Unknown Hives Verified 03/21/23 11:16 Sulfa (Sulfonamide Allergy Unknown Hives Verified 03/21/23 11:16 Antibiotics) Review of Systems Status of ROS: Reports: 10 or more systems reviewed and unremarkable except as noted in History and below [facility] Medical History Cognitive decline ?R41.89 - Other symptoms and signs involving cognitive functions and awareness (ICD-10) GERD (gastroesophageal reflux disease) ?K21.9 - Gastro-esophageal reflux disease without esophagitis (ICD-10) Positive FLORINDA (antinuclear antibody) ?R76.8 - Other specified abnormal immunological findings in serum (ICD-10) Intermediate stage nonexudative age-related macular degeneration of both eyes ?H35.3132 - Nonexudative age-related macular degeneration, bilateral, intermediate dry stage (ICD-10) History of endometrial cancer ?Z85.42 - Personal history of malignant neoplasm of other parts of uterus (ICD-10) History of kidney stones (2016) ?Z87.442 - Personal history of urinary calculi (ICD-10) History of Clostridium difficile infection (01/02/22) ?Z86.19 - Personal history of other infectious and parasitic diseases (ICD- 10) Allergic rhinitis ?J30.9 - Allergic rhinitis, unspecified (ICD-10) Hyperlipidemia ?E78.5 - Hyperlipidemia, unspecified (ICD-10) Hypertension ?I10 - Essential (primary) hypertension (ICD-10) Hypothyroidism ?E03.9 - Hypothyroidism, unspecified (ICD-10) History of non anemic vitamin B12 deficiency ?Z86.39 - Personal history of other endocrine, nutritional and metabolic disease (ICD-10) Surgical History History of bunionectomy ?Z98.890 - Other specified postprocedural states (ICD-10) History of total abdominal hysterectomy and bilateral salpingo-oophorectomy ?Z90.710 - Acquired absence of both cervix and uterus (ICD-10) ?Z90.722 - Acquired absence of ovaries, bilateral (ICD-10) ?Z90.79 - Acquired absence of other genital organ(s) (ICD-10) History of cataract surgery (2020) ?Z98.49 - Cataract extraction status, unspecified eye (ICD-10) History of eye surgery (07/21/21) ?Z98.890 - Other specified postprocedural states (ICD-10) Family History Father Polycystic kidney disease, Onset Age: 50 Arthritis Mother Arthritis Liver cancer Sister Arthritis Depression High blood pressure Anxiety Thyroid disease Maternal Grandfather Heart failure Paternal Grandfather Heart failure Social History Narrative: Single, retired 15 years ago from [employer], no children, exercises by walking 4 times a week, lives in independent living facility Nonsmoker, rare use of alcohol Smoking Status: Never smoker Do you use any of these nicotine containing products: None Second hand tobacco smoke exposure: No How often do you have a drink containing alcohol: monthly or less How often do you have six or more drinks on one occasion: Never AUDIT-C Alcohol total score: 1 Non-prescribed substance use: denies use Little interest or pleasure in doing things: not at all Feeling down, depressed, or hopeless: not at all service: No Exam Narrative: Exam Narrative: Objective: Patient's vital signs unremarkable and slightly elevated blood pressure She is alert orient x3, very pleasant, talks in full and unlabored sentences, HEENT shows no facial asymmetry no scleral icterus mouth clear neck is supple Chest is clear Heart rhythm regular without murmur Abdomen benign soft nontender Extremities are trace to 1+ edema of the ankles but otherwise unremarkable, neurologic is nonfocal in upper extremities. No skin rashes or cellulitic changes noted Const: Vital Signs, click to edit/add: Vital Signs - 24 hr 03/21/23 11:16 Temperature 97.9 F Pulse Rate [Pulse Oximeter] 82 Respiratory Rate 18 Blood Pressure [Ri ght Upper Arm] 160/86 H Pulse Oximetry 97 Oxygen Delivery Me thod Room Air Course Vital Signs Vital signs: Initial Vital Signs Temperature 97.9 F 03/21/23 11:16 Temperature Source Temporal Artery Scan 03/21/23 11:16 Pulse Rate 82 03/21/23 11:16 Respiratory Rate 18 03/21/23 11:16 Blood Pressure 160/86 H 03/21/23 11:16 Blood Pressure Mean 110 H 03/21/23 11:16 Blood Pressure Position Sitting 03/21/23 11:16 Pulse Oximetry 97 03/21/23 11:16 Oxygen Delivery Method Room Air 03/21/23 11:16 Vital Signs Temperature 97.9 F 03/21/23 11:16 Pulse Rate 82 03/21/23 11:16 Respiratory Rate 18 03/21/23 11:16 Blood Pressure 160/86 H 03/21/23 11:16 Pulse Oximetry 97 03/21/23 11:16 Oxygen Delivery Method Room Air 03/21/23 11:16 Temperature 97.9 F 03/21/23 11:16 Pulse Rate 82 03/21/23 11:16 Respiratory Rate 18 03/21/23 11:16 Blood Pressure 160/86 H 03/21/23 11:16 Pulse Oximetry 97 03/21/23 11:16 Oxygen Delivery Method Room Air 03/21/23 11:16 Medical Decision Making MDM Narrative Medical decision making narrative: Patient is an 82 year white female with a history of mild cognitive decline, with some anxiety today, no clear etiology of his her presentation, she is able to walk neurologically she is intact she has no focal neurologic deficit. She has no specific complaint headache or visual problem no facial asymmetry. At this point I think be colin to check her electrolytes CBC COVID/RSV/influenza, urinalysis and urine culture. If these are reassuring I think she can be discharged back to home and observe continue her same medications. Follow-up with primary care doctor recommended in the next 2-3 days. Addendum: Patient's urinalysis looks basically unremarkable she does have 1+ leukocyte esterase but I would wait for urine culture. Her EKG shows normal sinus rhythm limited R-wave progression anteriorly. Chem profile looks largely unremarkable LFT CRP are negative urinalysis as mentioned. I think this point we allowed to go home rest light activity observe will follow up the COVID/influenza/RSV test is needed. Return if problems or concerns ED she was comfortable this. Lab Data Labs: Lab Results 03/21/23 03/21/23 Range/Units 11:30 11:50 WBC 4.30 L (4.50-11.00) K/uL RBC 4.15 (4.00-5.20) m/uL Hgb 12.2 (12.0-16.0) gm/dL Hct 37.6 (33.0-51.0) % MCV 91 (80-100) fL MCH 29 (26-34) pg MCHC 32 (32-36) gm/dL RDW Coeff of Jose Carlos 13.5 (11.5-15.5) % Plt Count 159 (140-440) K/uL Neut % (Auto) 60.1 (42.0-72.0) % Lymph % (Auto) 26.0 (20-44) % Mcleod % (Auto) 12.3 H (0.0-11.0) % Eos % (Auto) 0.5 (0.0-7.0) % Baso % (Auto) 0.2 (0.0-3.0) % Neut # (Auto) 2.60 (1.7-7.0) K/uL Lymph # (Auto) 1.10 (0.90-2.90) K/uL Mcleod # (Auto) 0.50 (0.00-0.90) K/UL Eos # (Auto) 0.00 (0.00-0.50) K/uL Baso # (Auto) 0.00 (0.00-0.30) K/uL Sodium 140 (135-149) mmol/L Potassium 3.7 (3.6-5.1) mmol/L Chloride 103 (96-114) mmol/L Carbon Dioxide 29 (20-32) mmol/L BUN 20 (7-30) mg/dL Creatinine 0.9 (0.5-1.5) mg/dL Estimated Creat Clear 38.75 Estimated GFR 65 ml/min Glucose 112 (60-115) mg/dL Calcium 9.3 (8.4-10.6) mg/dL Total Bilirubin 0.5 (0.1-1.5) mg/dL Direct Bilirubin 0.2 (0.0-0.5) mg/dL AST 27 (12-35) U/L ALT 23 (4-35) U/L Alkaline Phosphatase 87 (40-150) U/L C-Reactive Protein 0.6 (0.5-1.0) mg/dL Total Protein 7.6 (6.0-8.3) g/dL Albumin 4.5 (3.3-5.0) g/dL Urine Color Yellow (Yellow) Urine Appearance Clear (Clear) Urine pH 6.0 (5.0-8.5) Ur Specific [place] 1.020 (1.000-1.030) Urine Protein Negative (Negative) Urine Glucose (UA) Negative (Negative) Urine Ketones Negative (Negative) Urine Blood Negative (Negative) Urine Nitrite Negative (Negative) Urine Bilirubin Negative (Negative) Urine Urobilinogen 0.2 (0.2-1.0) Ur Leukocyte Esterase 1+ A (Negative) Urine RBC 0-2 (0-2) Urine WBC 2-5 (0-5) Urine WBC Clumps None (None) Ur Squamous Epith Cells Few (None-Few) Urine Bacteria Few A (None) Discharge Plan Discharge Clinical Impression: Anxiety, Cognitive decline Patient Disposition: Home w/ Parent or Adult Condition: Stable Additional Instructions: Light activity, continue her same medications, update regular doctor the next 2- 3 days with symptoms or return to ED if problems or concerns. Activity Level: Light activity Discharge Diet: Regular Prescriptions: No Action cholecalciferol (vitamin D3) 25 mcg (1,000 unit) capsule 25 mcg PO QDAY hydrochlorothiazide 12.5 mg capsule 12.5 mg PO QAM Qty: 90 4RF levothyroxine 75 mcg capsule 75 mcg PO QDAY Qty: 90 4RF metoprolol succinate 25 mg tablet extended release 24 hr 25 mg PO QDAY Qty: 90 4RF metoprolol succinate 50 mg tablet extended release 24 hr 50 mg PO QDAY Qty: 90 4RF simvastatin 20 mg tablet 20 mg PO QDAY Qty: 90 4RF valsartan 160 mg tablet 160 mg PO QDAY Qty: 90 4RF cyanocobalamin (vitamin B-12) 1,000 mcg capsule 1,000 mcg PO QDAY Qty: 90 4RF Follow Up/Referrals: Eliana Haynes MD [Primary Care Provider] - Stand Alone Forms: [facility] Info Instructions
[2023-03-21 11:41] LABS: Appearance Urine Clear (Clear); Bilirubin Urine Negative (Negative); Blood Urine Negative (Negative); Color Urine Yellow (Yellow); Glucose Urine Negative (Negative); Ketones Urine Negative (Negative); Leukocyte Esterase Urine 1+ (Negative); Nitrite Urine Negative (Negative); Protein Urine Negative (Negative); Urobilinogen Urine 0.2 (0.2-1.0)
[2023-03-21 11:51] LABS: Bacteria Urine Few; RBC Urine 0-2 (0-2); Squamous Epithelial Cell Urine Few (None-Few)
--- NOTE | 2023-03-21 11:55 | ED.NURSE ---
Peripheral lab draw to right AC completed by this creative writer. Patient tolerated well. EDT in for EKG. Patient notes, I think I'm feeling better already. She denies needs at present.
[2023-03-21 12:06] LABS: Basophils Percent Auto 0.2 % (0.0-3.0); Eosinophils Percent Auto 0.5 % (0.0-7.0); Hematocrit 37.6 % (33.0-51.0); Hemoglobin* 12.2 gm/dL (12.0-16.0); Immature Granulocytes Pct Auto 0.9 %; Mean Corpuscular HGB Conc 32 gm/dL (32-36); Mean Corpuscular Hemoglobin 29 pg (26-34); Mean Corpuscular Volume 91 fL (80-100); Monocytes Percent Auto 12.3 % (0.0-11.0); Neutrophils Percent Auto 60.1 % (42.0-72.0); Platelet Count* 159 K/uL (140-440); RDW Coefficient of Variation % 13.5 % (11.5-15.5); Red Blood Count 4.15 m/uL (4.00-5.20)
[2023-03-21 12:12] LABS: Slide Review Reflex No
[2023-03-21 12:39] LABS: PCR FLU A Negative PCR FLU A (Negative); PCR FLU B Negative PCR FLU B (Negative); PCR RSV Negative PCR RSV (Negative)
[2023-03-21 12:57] LABS: Albumin* 4.5 g/dL (3.3-5.0); Chloride* 103 mmol/L (96-114)
[2023-03-21 12:58] LABS: Potassium* 3.7 mmol/L (3.6-5.1); Sodium* 140 mmol/L (135-149)
[2023-03-21 13:00] LABS: Alkaline Phosphatase* 87 U/L (40-150); Aspartate Amino Transferase* 27 U/L (12-35); Bilirubin Direct* 0.2 mg/dL (0.0-0.5); Bilirubin Total* 0.5 mg/dL (0.1-1.5); Blood Urea Nitrogen* 20 mg/dL (7-30); Carbon Dioxide* 29 mmol/L (20-32); Creatinine* 0.9 mg/dL (0.5-1.5); Est. Creatinine Clearance* 38.75; Estimated Glomerular Filt Rate 65 ml/min; Total Protein* 7.6 g/dL (6.0-8.3)
[2023-03-21 13:01] LABS: Alanine Aminotransferase* 23 U/L (4-35); Calcium* 9.3 mg/dL (8.4-10.6); Glucose* 112 mg/dL (60-115)
[2023-03-21 13:03] LABS: C Reactive Protein* 0.6 mg/dL (0.5-1.0)
[2023-03-21 14:01] LABS: SARS PCR* Negative SARS-CoV-2 (Negative)
== END 2023-03-21 13:15 | disposition home or self-care (01) ==
PROVIDERS: Emergency Provider Family Medicine; PCP Family Medicine
DX: F41.9 Anxiety disorder, unspecified (principal); R41.81 Age-related cognitive decline
CPT/HCPCS: 36415; 80048; 80076; 81001; 85025; 86140; 87086; 87631; 93005; 99284

== ENCOUNTER 2023-04-16 14:41 | Outpatient (CLI) | payer MEDICARE, BC, SELFPAY ==
--- NOTE | 2023-04-16 15:00 | CRLHL7_ITS ---
For Patients: As a result of the Century Cures Act, medical imaging exams and procedure reports are released immediately into your electronic medical record. You may view this report before your referring provider. If you have questions, please contact your health care provider. DUPLEX VENOUS INSUFFICIENCY ULTRASOUND BILATERAL LOWER EXTREMITY, 04/16/2023 CLINICAL HISTORY: Bilateral lower extremity swelling/tightness. COMPARISON: None. TECHNIQUE: The lower extremity veins were examined with mcneal-scale ultrasound, color-flow and Doppler spectral analysis. Compressibility of the veins by transducer pressure was used to evaluate the presence or absence of DVT/SVT at sites per exam specific protocol. Assessment of venous competence was performed by Doppler spectral analysis and was performed and documented at exam specific sites in an upright position for venous insufficiency studies. FINDINGS: There is no evidence for DVT in the bilateral lower extremities. The deep venous systems are compressible with augmentation of flow post-compression. Phasic flow is identified. Deep venous incompetence is seen within a right posterior tibial vein branch (reflux duration 1.8 seconds). The right great saphenous vein is incompetent in the proximal thigh (reflux duration 0.7 seconds, 4 mm), mid-thigh (reflux duration 0.6 seconds, 4 mm), proximal calf (reflux duration 3.8 seconds, 3.7 mm), mid-calf (reflux duration 2.5 seconds, 2.5 mm), and distal calf (reflux duration 3.2 seconds, 2.8 mm). Left great saphenous vein incompetence is noted in the proximal calf (reflux duration 2.6 seconds, 4.1 mm). DEEP SYSTEM: RIGHT: Vessel: CFV: Competent. SFV Prox: Competent. SFV Mid: Competent. SFV Distal: Competent. Pop: Competent. PTV1: Incompetent. PTV2: Incompetent. LEFT: Vessel: CFV: Competent. SFV Prox: Competent. SFV Mid: Competent. SFV Distal: Competent. Pop: Competent. PTV1: Competent. PTV2: Competent. SUPERFICIAL SYSTEM: RIGHT: Vessel: SFJ: 9 mm. Competent. GSV Thigh Prox: 0.7 mm. Incompetent. GSV Thigh Mid: 0.6 mm. Incompetent. GSV Thigh Distal: Competent. GSV Calf Prox: 4 mm. Incompetent. GSV Calf Mid: 3 mm. Incompetent. GSV Calf Distal: 3 mm. Incompetent. LEFT: SFJ: Competent. 7 mm. GSV Thigh Prox: Competent. GSV Thigh Mid: Competent. 5 mm. GSV Thigh Distal: Competent. GSV Calf Prox: Incompetent. 3 mm. GSV Calf Mid: Competent. GSV Calf Distal: Competent. PERFORATORS: Right Mid-Calf: 3 mm. Competent. Left Mid-Calf: 1 mm. Competent. IMPRESSION: 1. No evidence of DVT in the bilateral lower extremities. Deep venous incompetence in the right posterior tibial vein. 2. 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 3. Left Lower Extremity: Segmental great saphenous vein incompetence at the proximal calf. Jayce Melgoza M.D. [email or web address] MAKSIM/dre erickson/Dictated by: Jayce Melgoza MD @ 04/16/2023 4:58:00 PM (Electronically Signed)
== END 2023-04-16 14:42 | disposition home or self-care (01) ==
PROVIDERS: PCP Family Medicine; Visit Provider Family Medicine
DX: M79.89 Other specified soft tissue disorders (principal); I83.93 Asymptomatic varicose veins of bilateral lower extremities
CPT/HCPCS: 93970

== ENCOUNTER 2023-04-30 14:26 | Outpatient (CLI) | payer MEDICARE, BC, SELFPAY | END 2023-04-30 14:27 | disposition home or self-care (01) | LOC: RAD 14:27 | PROVIDERS: PCP Family Medicine; Visit Provider Family Medicine | DX: M79.89 Other specified soft tissue disorders (principal); I31.39 Other pericardial effusion (noninflammatory); I10 Essential (primary) hypertension | CPT/HCPCS: 93306 ==

== ENCOUNTER 2023-05-09 09:34 | Outpatient (CLI) | payer MEDICARE, BC, SELFPAY | END 2023-05-09 09:35 | disposition home or self-care (01) | LOC: NFLDREF 14:24 | PROVIDERS: PCP Family Medicine; Referring Provider Family Medicine; Visit Provider Family Medicine | DX: E03.9 Hypothyroidism, unspecified (principal) | CPT/HCPCS: 84439; 84443 ==

== ENCOUNTER 2023-10-09 08:11 | Outpatient (CLI) | payer MEDICARE, BC, SELFPAY | END 2023-10-09 08:12 | disposition home or self-care (01) | LOC: NFLDREF 08:13 | PROVIDERS: PCP Family Medicine; Visit Provider Family Medicine | DX: I10 Essential (primary) hypertension (principal); E03.9 Hypothyroidism, unspecified; E55.9 Vitamin D deficiency, unspecified; Z86.39 Personal history of other endocrine, nutritional and metabolic disease; Z79.899 Other long term (current) drug therapy | CPT/HCPCS: 80053; 80061; 82306; 82607; 84443 ==

== ENCOUNTER 2024-04-14 10:26 | Emergency (ER) | payer MEDICARE, BC, SELFPAY ==
[2024-04-14 10:30] VITALS: BP 136/77
[2024-04-14 10:36] VITALS: BP 136/77; PULSE 87; RESP 18; TEMP 37.1; O2SAT 96; BMI 27.4
--- NOTE | 2024-04-14 10:44 | ED_ITS ---
HPI - General Adult General Chief complaint: Unspecified Complaint, Adult Stated complaint: body aches Time Seen by Provider: 04/14/24 10:36 History of Present Illness HPI narrative: Patient reports 2-3 days of feeling unwell . Notes nasal congestion. Denies know sick contacts. Patient was able to ambulate from EMS cot to ED cot without assistance. 83-year-old woman presenting to the emergency department with concern of ?just not feeling good?. Denies feeling short of breath. She feels generally a little weak or little unsteady. Maybe lightheaded but not really dizzy when I attempt to clarify. Not having headache. Is not short of breath. No chest pain. No palpitations. Is not endorsing any particular allergies. She has had diarrhea for at least today. She is recollecting also that maybe has been experiencing frequency and intermittent dysuria for an unspecified amount of time. No melena or hematochezia noted. No abdominal pain. Apparently has been a little congested nasally and does have a history of allergic rhinitis on review of record. Related Data Home Medications ?Medication ?Instructions ?Recorded ?Confirmed cholecalciferol (vitamin D3) 25 50 mcg PO QDAY 04/14/24 04/14/24 mcg (1,000 unit) capsule simvastatin 20 mg tablet 20 mg PO HS 04/14/24 04/14/24 Previous Rx's ?Medication ?Instructions ?Recorded cyanocobalamin (vitamin B-12) 1,000 mcg PO QDAY #90 caps 10/09/23 1,000 mcg capsule hydrochlorothiazide 12.5 mg capsule 12.5 mg PO QAM #90 caps 10/09/23 levothyroxine 75 mcg tablet 75 mcg PO QDAY #90 tabs 10/09/23 metoprolol succinate 25 mg 25 mg PO QDAY #90 tabs 10/09/23 tablet,extended release 24 hr metoprolol succinate 50 mg 50 mg PO QDAY #90 tabs 10/09/23 tablet,extended release 24 hr valsartan 160 mg tablet 160 mg PO QDAY #90 tabs 10/09/23 Allergies Allergy/AdvReac Type Severity Reaction Status Date / Time Iodinated Contrast Media Allergy Severe Anaphylaxis Verified 04/14/24 10:38 Penicillins Allergy Unknown Hives Verified 04/14/24 10:38 Sulfa (Sulfonamide Allergy Unknown Hives Verified 04/14/24 10:38 Antibiotics) Review of Systems Status of ROS: Reports: 6 or more systems reviewed and unremarkable except as noted in History and below [facility] Medical History Cardiac function test performed (04/2023) GERD (gastroesophageal reflux disease) ?K21.9 - Gastro-esophageal reflux disease without esophagitis (ICD-10) Positive FLORINDA (antinuclear antibody) ?R76.8 - Other specified abnormal immunological findings in serum (ICD-10) Intermediate stage nonexudative age-related macular degeneration of both eyes ?H35.3132 - Nonexudative age-related macular degeneration, bilateral, intermediate dry stage (ICD-10) History of endometrial cancer ?Z85.42 - Personal history of malignant neoplasm of other parts of uterus (ICD-10) History of kidney stones (2015) ?Z87.442 - Personal history of urinary calculi (ICD-10) History of Clostridium difficile infection (01/02/22) ?Z86.19 - Personal history of other infectious and parasitic diseases (ICD- 10) Allergic rhinitis ?J30.9 - Allergic rhinitis, unspecified (ICD-10) Hyperlipidemia ?E78.5 - Hyperlipidemia, unspecified (ICD-10) Hypertension ?I10 - Essential (primary) hypertension (ICD-10) Hypothyroidism ?E03.9 - Hypothyroidism, unspecified (ICD-10) History of non anemic vitamin B12 deficiency ?Z86.39 - Personal history of other endocrine, nutritional and metabolic disease (ICD-10) Surgical History History of bunionectomy ?Z98.890 - Other specified postprocedural states (ICD-10) History of total abdominal hysterectomy and bilateral salpingo-oophorectomy ?Z90.710 - Acquired absence of both cervix and uterus (ICD-10) ?Z90.722 - Acquired absence of ovaries, bilateral (ICD-10) ?Z90.79 - Acquired absence of other genital organ(s) (ICD-10) History of cataract surgery (2020) ?Z98.49 - Cataract extraction status, unspecified eye (ICD-10) History of eye surgery (07/21/21) ?Z98.890 - Other specified postprocedural states (ICD-10) Family History Father Polycystic kidney disease, Onset Age: 50 Arthritis Mother Arthritis Liver cancer Sister Arthritis Depression High blood pressure Anxiety Thyroid disease Maternal Grandfather Heart failure Paternal Grandfather Heart failure Social History Narrative: Single, retired 15 years ago from [employer], no children, exercises by walking 4 times a week, lives in independent living facility [facility] Nonsmoker, rare use of alcohol What is your current living situation?: I presently have a place to live Problems where you live: no known problems In the past 12 months, utilities in danger of being shut off: no In past 12 months, lack of transportation kept you from medical appts, meetings, work, or getting things needed for daily living: no In the past 12 mos, have been you worried that your food would run out before you had money to buy more?: sometimes true In the past 12 mos, the food you bought just didn't last and you didn't have money to buy more?: never true Smoking Status: Never smoker Do you use any of these nicotine containing products: None Second hand tobacco smoke exposure: No How often do you have a drink containing alcohol: monthly or less How often do you have six or more drinks on one occasion: Never AUDIT-C Alcohol total score: 1 Non-prescribed substance use: denies use How often does anyone, including family, friends and others, physically hurt you : never How often does anyone, including family, friends and others, insult or talk down to you: never How often does anyone, including family, friends and others, threaten you with harm: never How often does anyone, including family, friends and others, scream or curse at you: never Little interest or pleasure in doing things: not at all Feeling down, depressed, or hopeless: not at all service: No Exam Narrative: Exam Narrative: Pleasant. Laughs easily. Does not appear to be in any particular distress. Oropharynx is sticky. Cranial nerves 2-12 intact. Pupils are equal. Mucous membranes are on the pale side. Lungs are clear with breath sounds throughout. Heart in regular rate and rhythm without murmur rub or gallop. Little distant. Abdomen is soft and nontender knee. No masses. Present bowel sounds. Lower extremities with trace pretibial pitting edema bilaterally. She has light venous varicosities. Const: Vital Signs, click to edit/add: Vital Signs - 24 hr 04/14/24 10:30 04/14/24 10:36 04/14/24 11:00 Temperature 98.7 F Pulse Rate [Pulse Oximeter] 87 Respiratory Rate 18 Blood Pressure [Ri ght Upper Arm] 136/77 136/77 140/70 H Pulse Oximetry 96 Oxygen Delivery Me thod Room Air 04/14/24 11:30 04/14/24 12:44 Temperature Pulse Rate [Pulse Oximeter] Respiratory Rate Blood Pressure [Ri ght Upper Arm] 129/89 126/61 Pulse Oximetry 96 93 Oxygen Delivery Me thod Room Air Room Air Documenting provider has reviewed patient's vital signs: yes Course Vital Signs Vital signs: Initial Vital Signs Blood Pressure 136/77 04/14/24 10:30 Blood Pressure Mean 96 04/14/24 10:30 Vital Signs Blood Pressure 136/77 04/14/24 10:30 Temperature 98.7 F 04/14/24 10:36 Pulse Rate 87 04/14/24 10:36 Respiratory Rate 18 04/14/24 10:36 Blood Pressure 126/61 04/14/24 12:44 Pulse Oximetry 93 04/14/24 12:44 Oxygen Delivery Method Room Air 04/14/24 12:44 Medical Decision Making MDM Narrative Medical decision making narrative: Initially when I am interviewing was low, seems somewhat hypoxic but in no respiratory difficulty satting 91% but as we continue talking she goes up to 96%. Rather vague in complaints needing prompting and rather specific questioning. Differential for generalized mild weakness would be broad. With her history could be related to some vitamin deficiency even vitamin-D vitamin B12. History also hypothyroid. Does take hydrochlorothiazide this could be hyponatremia. I do not see that she has been hyponatremic and review of records. I think she is likely little dehydrated to could contribute in the setting also diarrhea. May have a urinary tract infection per her symptoms. Triple swab is already been collected. Will screen for urinalysis and if inconclusive results do larger workup. Triple swab is negative. No worsening events on monitors. Unchanged symptoms. Urinalysis clearly positive. Appears safe for discharge back to [facility] See patient discharge plan for further discussion Lab Data Lab results reviewed: Yes I reviewed the patient's lab results Labs: Lab Results 04/14/24 04/14/24 Range/Units 10:35 11:05 Urine Color Yellow (Yellow) Urine Appearance Turbid A (Clear) Urine pH 5.5 (5.0-8.5) Ur Specific [place] 1.025 (1.000-1.030) Urine Protein 2+ A (Negative) Urine Glucose (UA) Negative (Negative) Urine Ketones Negative (Negative) Urine Blood 2+ A (Negative) Urine Nitrite Positive A (Negative) Urine Bilirubin Negative (Negative) Urine Urobilinogen 0.2 (0.2-1.0) Ur Leukocyte Esterase 3+ A (Negative) Urine RBC >100 A (0-2) Urine WBC >100 A (0-5) Ur Squamous Epith Cells Few (None-Few) Urine Bacteria Many A (None) SARS-CoV-2 (PCR) Negative SARS-CoV-2 (Negative) Influenza Type A (PCR) Negative PCR FLU A (Negative) Influenza Type B (PCR) Negative PCR FLU B (Negative) Discharge Plan Discharge Clinical Impression: Cystitis, Malaise Patient Disposition: Home w/ Parent or Adult Condition: Stable Additional Instructions: It appears you have a urinary tract infection. I think this is a very reasonable explanation for the symptoms that you are describing today. Prescribing cephalexin as antibiotic from [facility]. We will be culturing your urine here and if it appears that the antibiotic was not the right one, you will get a call. Try to get in 3 doses by the end of the day today. Stay well hydrated with water. Return for worsening weakness such that you feel unsafe, fever, increasing shortness of breath, significant increase in abdominal pain or flank pain. Prescriptions: No Action cyanocobalamin (vitamin B-12) 1,000 mcg capsule 1,000 mcg PO QDAY Qty: 90 3RF hydrochlorothiazide 12.5 mg capsule 12.5 mg PO QAM Qty: 90 3RF levothyroxine 75 mcg tablet 75 mcg PO QDAY Qty: 90 3RF metoprolol succinate 25 mg tablet extended release 24 hr 25 mg PO QDAY Qty: 90 3RF metoprolol succinate 50 mg tablet extended release 24 hr 50 mg PO QDAY Qty: 90 3RF valsartan 160 mg tablet 160 mg PO QDAY Qty: 90 3RF simvastatin 20 mg tablet 20 mg PO HS cholecalciferol (vitamin D3) 25 mcg (1,000 unit) capsule 50 mcg PO QDAY Follow Up/Referrals: Eliana Haynes MD [Primary Care Provider] - Stand Alone Forms: [employer] Info Instructions
[2024-04-14 11:00] VITALS: BP 140/70
[2024-04-14 11:17] LABS: Appearance Urine Turbid (Clear); Bilirubin Urine Negative (Negative); Blood Urine 2+ (Negative); Color Urine Yellow (Yellow); Glucose Urine Negative (Negative); Ketones Urine Negative (Negative); Leukocyte Esterase Urine 3+ (Negative); Nitrite Urine Positive (Negative); Protein Urine 2+ (Negative); Specific Gravity Urine 1.025 (1.000-1.030); Urobilinogen Urine 0.2 (0.2-1.0); pH Urine 5.5 (5.0-8.5)
--- OUTSIDE RECORDS SUMMARY | 2024-04-14 11:17 | XMS_ITS | Clinical Summary ---
[facility] Organization [facility] Address [address] [place] [address] Care Team Providers Care Armhole Baster Jumpbasting Name Role Phone Eliana Haynes MD Primary Care Provider Source Comments You are receiving this document as you are listed as the primary care provider,follow-up provider, or the patient has been referred to you for consultation.This is in compliance with the Medicare andMedicaid EHR Incentive Program,which states Providers who transition their patient to another setting of careor provider of care or refers their patient to another provider of care shouldprovide summary care record for each transition of care or referral. [facility] Allergies Active Allergy Reactions Criticality Noted Date Comments Iodinated Contrast Media Anaphylaxis High 04/22/2018 Penicillins Hives High 07/01/2004 Has tolerated ancef per [facility] chart review. Sulfa Antibiotics Hives High 07/01/2004 Medications Medication Sig Dispensed Refills Start Date End Date Status cholecalciferol (VITAMIN D3) 1000 units tablet Take 1,000 Units by mouth daily. Active acetaminophen (TYLENOL) 325 MG tablet Take 325-650 mg by mouth every 4 hours as needed for Pain. Active cyanocobalamin (VITAMIN B12) 1000 MCG tabletIndications:Mary min B12 deficiency (HRC) Take 1 Tablet by mouth daily. 90 Tablet 3 03/08/2021 Active Multiple Vitamins-Minerals (PRESERVISION AREDS 2 OR) Take 2 tablets by mouth daily. Active levothyroxine (SYNTHROID) 75 MCG tabletIndications:Hypo thyroidism, unspecified type (HRC) TAKE 1 TABLET BY MOUTH EVERY DAY 90 Tablet 3 03/09/2022 Active simvastatin (ZOCOR) 20 MG tabletIndications:Hype rlipidemia, unspecified hyperlipidemia type (HRC) TAKE 1 TABLET BY MOUTH EVERY DAY 90 Tablet 2 06/08/2022 Active metoprolol succinate (TOPROL XL) 50 MG 24 hour release tabletIndications:Esse ntial hypertension (HRC) TAKE 1 TABLET BY MOUTH EVERY DAY 90 Tablet 2 06/16/2022 Active valsartan (DIOVAN) 160 MG tabletIndications:Esse ntial hypertension (HRC) TAKE 1 TABLET BY MOUTH EVERY DAY 90 Tablet 2 06/28/2022 Active metoprolol succinate (TOPROL XL) 25 MG 24 hour release tabletIndications:Esse ntial hypertension (HRC) take 1 tab by mouth daily. take with toprol xl 50 mg tab to equal 75 mg. 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 12/21/2021 Hypothyroidism 02/23/2021 Endometrial cancer 05/02/2018 Cancer Staging:Clinical:FIGO Stage I(cT1, cN0, cM0) - Unsigned Pathologic:Stage Unknown(pT2, pNX, cM0) - Unsigned Overview: Added automatically from request for surgery [id number] Calculus of kidney 04/18/2016 Overview: Calculus of kidney right side diagnosed CT scan in [place] asymptomatic Hyperlipidemia 07/12/2005 Overview: takes zocor Essential hypertension 04/11/2003 Overview: takes atenolol cozaar ; Hypertension Resolved Problems Problem Noted Date Diagnosed Date Resolved Date Post-menopausal bleeding 04/10/2018 Overview: Added automatically from request for surgery [id number] Postmenopausal 04/16/2015 05/21/2018 Aspirin long-term use 04/16/20152017 Overview: ASA therapy 75-162 mg/day is recommended for primary CVD prevention because patient -Is female 57 years who have at least one additional major risk factor such as: -HTN -Dyslipdemia H/O colonoscopy 04/16/2015 05/21/2018 Overview: H/O colonoscopy 2007 due 2017 Vitamin D deficiency 04/16/2015 017 BMI 34.0-34.9,adult 04/16/2015 04/02/20 19 Esophageal reflux 04/30/2006 01/16/2022 Overview: infreqvent symptoms uses OTC medication ; Gastroesophageal Reflux Disease Immunizations Name Administration Dates Next Due Flu Vac Preserv Free (3+yrs) 07/19/2012, 07/17/2011,07/14/2010, 009 Influenza (Fluzone 0.25, 6-35 mos) 07/21/2013 Influenza IIV3 (Trivalent) F luzone Highdose, 65+ Yrs (00249) 08/05/2019,08/10/2017,07/19/2015 Influenza IIV4 (Quadrivalent ) 0.5mL (60147) 07/21/2013 Influenza IIV4 (Quadrivalent ) Fluad, 65+ Yrs 09/20/2021 PCV13 (Prevnar) 04/16/2015 PPSV23 (Pneumovax) 07/14/2010 Pfizer Monovalent 12+ Purple Top 09/20/2021,02/0 12/2020,11/19/2020 Td 07/13/2009,07/20/1999 Tdap 04/19/2017 Zoster (Zostavax) 07/19/2012 Zoster RZV [...] (1 standard drink = 0.6 oz pure alcohol) Alcoholic Drinks/day: 1-2 x per year PHQ-2 Answer Date Recorded PHQ-2 Score 1 09/20/2021 Sex and Gender Information Value Date Recorded Sex Assigned at Not on file Gender Identity Not on file Sexual Orientation Not on file Last Filed Vital Signs Vital Sign Reading Time Taken Comments Blood Pressure 146/80 01/20/2022 8:46 AM CDT Pulse 71 01/20/2022 8:46 AM CDT Temperature 36.3 ??C (97.4 ??F) 01/05/2022 7:47 AM CS T Respiratory Rate 18 01/05/2022 7:47 AM LICENSED MASSAGE PRACTITIONER Oxygen Saturation 94% 01/05/2022 7:47 AM LICENSED MASSAGE PRACTITIONER Inhaled Oxygen Concentration - - Weight 80.9 kg (178 lb 7 oz) 01/16/2022 1:45 PM CDT Height 159 cm (5' 2.6) 01/16/2022 1:45 PM CDT Body Mass Index 32.02 01/16/2022 1:45 PM CDT Plan of Treatment Health Maintenance Due Date Last Done Comments Zoster/Shingles (3 of 3) 04/02/2019 02/05/2019, 07/06 Colonoscopy 07/16/2022 07/16/2019, 03/12/2008 Prediabetes: HGBA1C 01/16/2023 01/16/2022, 02/22/2021, 06/30/2020, Additional history exists COVID-19 Vaccine ( season) 2023 09/20/2021, 12/07/2020, 11/19/2020 Medicare Annual Wellness Visit 10/26/2023 10/26/2022, 09/20/2021, 06/30/2020, Additional history exists DTaP/Tdap/Td (2 - Tdap) 04/19/2027 04/19/20 17, 07/13/2009, 07/20/1999 Dexa Completed 07/26/2011 (Completed) Pneumococcal 65+ Yrs Completed 04/16/2015, 07/14/2010, 07/14/2010 (Completed) Influenza Completed 07/31/2023, 09/05, 08/05/2019, Additional history exists HepA Aged Out No longer eligi ble based on patient's age to complete this topic HepB Aged Out No longer eligi ble based on patient's age to complete this topic Hib Aged Out No longer eligi ble based on patient's age to complete this topic IPV (Polio) Aged Out No longer eligi ble based on patient's age to complete this topic MCV4 Aged Out No longer eligi ble based on patient's age to complete this topic Procedures Procedure Name Priority Date/Time Associated Diagnosis Comments HGB A1C Routine 01/16/2022 2:38 PM CDT Prediabetes ENDOSCOPY, COLON, SCREENING/DIAGNOST IC Routine 07/16/2019 12:45 PM CDT Positive FIT (fecal immunochemical test) from Last 3 Months or Most Recently Relevant to Health Maintenance Results * (ABNORMAL) Hemoglobin A1C Glycosylated (01/16/2022 2:38 PM CDT) Hemoglobin A1C 5.8(H) <=5.6 % 01/17/2022 9:08 AM CDT [facility] Blood Venipuncture / Unknown 01/16/2022 2:38 PM CDT 01/16/2022 2:38 PM CDT Narrative [facility] - 01/17/2022 9:08 AM CDT For patients not previously diagnosed with diabetes: 5.7-6.4%: Increased risk for diabetes 6.5% and greater: Diagnostic for diabetes For patients diagnosed with diabetes: <8.0%: Goal of therapy for ages 18-75 Clinicians may recommend a higher or lower goal for specific individuals. Veronica Heredia DO LAB_1 [facility] [address] [place] [address], [facility] [phone] * Endoscopy, Colon, Screening/Diagnostic (07/16/2019 12:45 PM CDT) 07/16/2019 12:4 5 PM CDT Narrative GI ([facility]) - 07/16/2019 12:45 PM CDT Patient Name: Michele Angulo Procedure Date: 07/16/2019 12:45 PM Date of : 1940 Admit Type: Outpatient Age: 78 Gender: Female Note Status: Finalized Attending MD: Joao Garrett MD Procedure: ? Colonoscopy Indications: ? Last colonoscopy: March 2008, Positive ? fecal immunochemical test Providers: ? Joao Garrett MD, Maureen Mak RN Referring MD: ?Veronica Heredia MD Medicines: ? Fentanyl 150 micrograms IV, Midazolam ? 2.5 mg IV, Oxygen 2l/min per nasal ? cannula, CO2 insufflation Complications: ? No immediate complications. Procedure: ? After I obtained informed consent, ? the scope was passed under direct ? vision. Throughout the procedure, the ? patient's blood pressure, pulse, and ? oxygen saturations were monitored ? continuously. The [id number] was ? introduced through the anus and ? advanced to the cecum, identified by ? appendiceal orifice and ileocecal ? valve. The patient tolerated the ? procedure well. The quality of the ? bowel preparation was good. Findings: ? A 3 mm polyp was found in the cecum. The polyp was ? semi-sessile. The polyp was removed with a cold ? biopsy forceps. Resection and retrieval were complete. ? A 6 mm polyp was found in the ascending colon. The ? polyp was semi-sessile. The polyp was removed with a ? cold snare. Resection and retrieval were complete. To ? stop active bleeding, one hemostatic clip was ? successfully placed. There was no bleeding at the end ? of the procedure. ? Three semi-sessile polyps were found in the proximal ? descending colon and distal transverse colon. The ? polyps were 3 to 4 mm in size. These polyps were ? removed with a cold biopsy forceps. Resection and ? retrieval were complete. ? Many diverticula were found in the sigmoid colon and ? descending colon. ? The exam was otherwise without abnormality. Moderate Sedation: ? Moderate (conscious) sedation was personally ? administered by the endoscopist. The following ? parameters were monitored: oxygen saturation, heart ? rate, blood pressure, and response to care. Total ? physician intraservice time was 25 minutes. Impression: ?- One 3 mm polyp in the cecum, ? removed with a cold biopsy forceps. ? Resected and retrieved. ? - One 6 mm polyp in the ascending ? colon, removed with a cold snare. ? Resected and retrieved. Clip was ? placed. ? - Three 3 to 4 mm polyps in the ? proximal descending colon and in the ? distal transverse colon, removed with ? a cold biopsy forceps. Resected and ? retrieved. ? - Diverticulosis in the sigmoid colon ? and in the descending colon. ? - The examination was otherwise ? normal. Recommendation: ?- Await pathology results. ? - Repeat colonoscopy after studies ? are complete for surveillance based ? on pathology results. Procedure Code(s): ?? --- Professional --- ? 27413, Colonoscopy, flexible; with ? removal of tumor(s), polyp(s), or ? other lesion(s) by snare technique ? 35443, 59, Colonoscopy, flexible; ? with biopsy, single or multiple ? 81299, Moderate sedation; each ? additional 15 minutes intraservice ? time ? G0500, Moderate sedation services ? provided by the same physician or ? other qualified health care ? professional performing a ? gastrointestinal endoscopic service ? that sedation supports, requiring the ? presence of an independent trained ? observer to assist in the monitoring ? of the patient's level of ? consciousness and physiological ? status; initial 15 minutes of ? intra-service time; patient age 5 ? years or older (additional time may ? be reported with 53503, as ? appropriate) Diagnosis Code(s): ?? --- Professional --- ? D12.0, Benign neoplasm of cecum ? D12.2, Benign neoplasm of ascending ? colon ? D12.4, Benign neoplasm of descending ? colon ? D12.3, Benign neoplasm of transverse ? colon (hepatic flexure or splenic ? flexure) ? R19.5, Other fecal abnormalities ? K57.30, Diverticulosis of large ? intestine without perforation or ? abscess without bleeding CPT copyright 2018 [employer]. All rights reserved. The codes documented in this report are preliminary and upon death surveys coder review may be revised to meet current compliance requirements. Joao Garrett MD 07/16/2019 1:47:49 PM This document has been electronically signed. Number of Addenda: 0 Note Initiated On: 07/16/2019 12:45 PM ? Endoscopy Report Procedure Note Joao Garrett MD - 07/16/2019 Patient Name: Michele Angulo Procedure Date: 07/16/2019 [...] and oxygen saturations were monitored continuously. The [id number] was introduced through the anus and advanced [...] pathology results. Procedure Code(s): --- Professional --- 50809, Colonoscopy, flexible; with removal of tumor(s), polyp(s), or other lesion(s) by snare technique 17948, 59, Colonoscopy, flexible; with biopsy, single or multiple 16404, Moderate sedation; each additional 15 minutes intraservice time G0500, Moderate sedation services provided by the same physician or other qualified health memory care program director performing a gastrointestinal endoscopic service that sedation supports, requiring the presence of an independent trained observer to assist in the monitoring of the patient's level of consciousness and physiological status; initial 15 minutes of intra-service time; patient age 5 years or older (additional time may be reported with 83635, as appropriate) Diagnosis Code(s): --- Professional --- D12.0, Benign neoplasm of cecum D12.2, Benign neoplasm of ascending colon D12.4, Benign neoplasm of descending colon D12.3, Benign neoplasm of transverse colon (hepatic flexure or splenic flexure) R19.5, Other fecal abnormalities K57.30, Diverticulosis of large intestine without perforation or abscess without bleeding CPT copyright 2018 [employer]. All rights reserved. The codes documented in this report are preliminary and upon death surveys coder review may be revised to meet current compliance requirements. Joao Garrett MD 07/16/2019 1:47:49 PM This document has been electronically signed. 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 Expl anation HEALTHCARE DIRECTIVE 11/10/2021 2 * Full Code (Latest Code Status on File) Date Activated Date Inactivated Comments 01/02/2022 6:55 PM 01/05/2022 3:10 PM Question Answer Comments On Admission, Code status was determined by: Dis cussed with patient/family * Full Code Date Activated Date Inactivated Comments 06/12/2018 8:02 AM 06/13/2018 12:33 PM * Full Code Date Activated Date Inactivated Comments 04/24/2018 12:07 PM 04/24/2018 3:33 PM Care Teams Armhole Baster Jumpbasting Relationship Specialty Start Date End Date Eliana Haynes MD [address] [place] [address] PCP - General Family Practice 09/26/23
--- OUTSIDE RECORDS SUMMARY | 2024-04-14 11:17 | XMS_ITS | Clinical Summary ---
Author Organization [facility] [facility] Address [place], [place] [address] Care Team Providers Care Microsoft Dynamics Developer Name Role Phone Veronica Heredia DO Primary Care Provider [phone] Allergies Active Allergy Reactions Criticality Noted Date Comments Iodinated Contrast Media Anaphylaxis High 04/22/2018 Sulfa (Sulfonamide Antibiotics) Hives High 06/06 Medications Medication Sig Dispensed Refills Start Date End Date Status acetaminophen (TYLENOL) 325 mg tablet Take 325-650 mg by mouth every 4 hours if needed. Active azithromycin (ZITHROMAX) 250 mg tablet TAKE 2 TABLETS BY MOUTH TODAY, THEN TAKE 1 TABLET DAILY FOR 4 DAYS 05/12/2021 Active ketorolac 0.5 % ophthalmic (ACULAR) solution PLEASE SEE ATTACHED FOR DETAILED DIRECTIONS 06/03/2021 Active hydroCHLOROthiazide 12.5 mg capsule Take 1 Capsule by mouth once daily. 07/13/2021 Active levothyroxine (SYNTHROID) 75 mcg tablet Take 1 Tablet by mouth once daily. 06/08/2021 Active losartan-hydrochloro thiazide (HYZAAR) 100-12.5 mg tablet Take 1 Tablet by mouth once daily. 04/04/2021 Active metoprolol succinate (TOPROL XL) 25 mg Sustained-Release tablet Take 1 Tab by mouth daily. Take with Toprol XL 50 mg tab to equal 75 mg. 06/30/2020 Active metoprolol succinate (TOPROL XL) 50 mg sustained-release tablet Take 1 Tablet by mouth once daily. 06/09/2021 Active moxifloxacin (VIGAMOX) 0.5 % ophthalmic solution START 1 DAY BEFORE SURGERY INSTILL 1 DROP IN OPERATIVE EYE 4X/DAY. USE UNTIL EMPTY, MAX 4WKS 06/03/2021 Active prednisoLONE acetate 1% ophthalmic (ECONOPRED PLUS, PRED FORTE, OMNIPRED) suspension INSTILL ONE DROP TO OPERATIVE EYE FOUR TIMES DAILY FOR A WEEK 06/22/2021 Active simvastatin (ZOCOR) 20 mg tablet Take 1 Tablet by mouth once daily. 06/30/2020 Active cyclopentolate (CYCLOGYL) 1 % ophthalmic solution Place 1 drop into right eye the morning after surgery then at bedtime daily 5 mL 07/21/2021 Active prednisoLONE acetate 1% ophthalmic (ECONOPRED PLUS, PRED FORTE, OMNIPRED) suspension Place 1 drop into right eye 4 times daily. SHAKE WELL 15 mL 07/21/2021 Active Social History Tobacco Use Types Packs/Day Years Used Date Smoking Tobacco: Never Smokeless Tobacco: Never Sex and Gender Information Value Date Recorded Sex Assigned at Not on file Gender Identity Not on file Sexual Orientation Not on file Obstetrics History Last Filed Vital Signs Vital Sign Reading Time Taken Comments Blood Pressure 152/90 07/21/2021 4:00 PM CDT Pulse 70 07/21/2021 4:00 PM CDT Temperature 36.4 ??C (97.5 ??F) 07/21/2021 12:00 PM C DT Respiratory Rate 16 07/21/2021 4:00 PM CDT Oxygen Saturation 96% 07/21/2021 4:00 PM CDT Inhaled Oxygen Concentration - - Weight 84.4 kg (186 lb) 07/21/2021 11:12 AM CDT Height 162.6 cm (5' 4) 07/21/2021 11:12 AM CDT Body Mass Index 31.93 07/21/2021 11:12 AM CDT Plan of Treatment Health Maintenance Due Date Last Done Comments Tdap 1953 Depression screening for age 12+ 1954 BMI (ht and wt on same day) for age 18+ 1960 Tetanus booster 1962 Zoster (shingles) series for age 50+ (1 of 2) 1992 DEXA/DXA scan for age 65+ 2007 Medicare Wellness for age 65+ 2007 Pneumococcal series for age 65+ (1 of 1 - PCV) 2007 COVID-19 vaccine series (2022-24 season) 2023 09/20/2021, 12/07/2020, 11/19/2020 Influenza for age 65+ 07/06/2024 Advance Directives * Full Code (Latest Code Status on File) Date Activated Date Inactivated Comments 07/21/2021 12:27 PM 07/21/2021 6:16 PM Question Answer Comments Code Status Discussion: Not Discussed Care Teams Microsoft Dynamics Developer Relationship Specialty [place] [address] [facility] [place] [address] PCP - General 07/21/21
[2024-04-14 11:29] LABS: Bacteria Urine Many; RBC Urine >100 (0-2); Squamous Epithelial Cell Urine Few (None-Few); WBC Urine >100 (0-5)
[2024-04-14 11:29] LABS: PCR FLU A Negative PCR FLU A (Negative); PCR FLU B Negative PCR FLU B (Negative); SARS PCR* Negative SARS-CoV-2 (Negative)
[2024-04-14 11:30] VITALS: BP 129/89; O2SAT 96
[2024-04-14 12:44] VITALS: BP 126/61; O2SAT 93
== END 2024-04-14 13:35 | disposition home or self-care (01) ==
PROVIDERS: Emergency Provider Family Medicine; PCP Family Medicine
DX: N30.90 Cystitis, unspecified without hematuria (principal); R53.81 Other malaise
CPT/HCPCS: 81001; 87086; 87186; 87631; 99283; 99284

== ENCOUNTER 2024-05-06 07:30 | Outpatient (CLI) | payer MEDICARE, BC, SELFPAY ==
--- OUTSIDE RECORDS SUMMARY | 2024-05-06 07:32 | XMS_ITS | Clinical Summary ---
Author Organization [employer] [facility] Address [place], [place] [address] Care Team Providers Care Can Piler Name Role Phone Veronica Heredia DO Primary Care Provider [phone] Allergies Active Allergy Reactions Criticality Noted Date [...] Code Status Discussion: Not Discussed Care Teams Can Piler Relationship Specialty [place] [address] [facility] [place] [address] PCP - General 07/21/21
--- OUTSIDE RECORDS SUMMARY | 2024-05-06 07:32 | XMS_ITS | Clinical Summary ---
Author Organization [facility] Address [address] [place] [address] Care Team Providers Care Air Drier Name Role Phone Eliana Haynes MD Primary [...] for each transition of care or referral. [facility] Allergies Active Allergy Reactions Criticality Noted Date Comments Iodinated Contrast Media Anaphylaxis High 04/22/2018 Penicillins Hives High 07/01/2004 Has tolerated ancef per [facility] chart review. Sulfa Antibiotics Hives High 07/01/2004 [...] Overview: Added automatically from request for surgery [id number] Calculus of kidney 04/18/2016 Overview: Calculus of kidney right side diagnosed CT scan in [place] asymptomatic Hyperlipidemia 07/12/2005 Overview: takes zocor Essential hypertension 04/11/2003 Overview: takes atenolol cozaar ; Hypertension Resolved Problems Problem Noted Date Diagnosed Date Resolved Date Post-menopausal bleeding 04/10/2018 Overview: Added automatically from request for surgery [id number] Postmenopausal 04/16/2015 05/21/2018 Aspirin long-term use 04/16/20152017 [...] IIV3 (Trivalent) F luzone Highdose, 65+ Yrs (52012) 08/05/2019,08/10/2017,07/19/2015 Influenza IIV4 (Quadrivalent ) 0.5mL (69949) 07/21/2013 Influenza IIV4 (Quadrivalent ) Fluad, 65+ [...] T Respiratory Rate 18 01/05/2022 7:47 AM FAST FOOD SALES ASSISTANT Oxygen Saturation 94% 01/05/2022 7:47 AM FAST FOOD SALES ASSISTANT Inhaled Oxygen Concentration - - Weight 80.9 [...] 5.8(H) <=5.6 % 01/17/2022 9:08 AM CDT [facility] Blood Venipuncture / Unknown 01/16/2022 2:38 PM CDT 01/16/2022 2:38 PM CDT Narrative [facility] - 01/17/2022 9:08 AM CDT For patients not previously diagnosed with diabetes: 5.7-6.4%: Increased risk for diabetes 6.5% and greater: Diagnostic for diabetes For patients diagnosed with diabetes: <8.0%: Goal of therapy for ages 18-75 Clinicians may recommend a higher or lower goal for specific individuals. Veronica Heredia DO LAB_[facility] [address] [place] [address], [facility] [phone] * Endoscopy, Colon, Screening/Diagnostic (07/16/2019 12:45 PM [...] oxygen saturations were monitored ? continuously. The [id number] was ? introduced through the anus and [...] Procedure Code(s): ?? --- Professional --- ? 68037, Colonoscopy, flexible; with ? removal of tumor(s), polyp(s), or ? other lesion(s) by snare technique ? 70194, 59, Colonoscopy, flexible; ? with biopsy, single or multiple ? 96646, Moderate sedation; each ? additional 15 minutes [...] (additional time may ? be reported with 30737, as ? appropriate) Diagnosis Code(s): ?? --- [...] ? abscess without bleeding CPT copyright 2018 [employer]. All rights reserved. The codes documented in this report are preliminary and upon lighting technician review may be revised to meet current [...] and oxygen saturations were monitored continuously. The [id number] was introduced through the anus and advanced [...] pathology results. Procedure Code(s): --- Professional --- 66521, Colonoscopy, flexible; with removal of tumor(s), polyp(s), or other lesion(s) by snare technique 67421, 59, Colonoscopy, flexible; with biopsy, single or multiple 76715, Moderate sedation; each additional 15 minutes intraservice time G0500, Moderate sedation services provided by the same physician or other qualified health customer care voice consultant performing a gastrointestinal endoscopic service that sedation supports, requiring the presence of an independent trained observer to assist in the monitoring of the patient's level of consciousness and physiological status; initial 15 minutes of intra-service time; patient age 5 years or older (additional time may be reported with 29143, as appropriate) Diagnosis Code(s): --- Professional --- D12.0, Benign neoplasm of cecum D12.2, Benign neoplasm of ascending colon D12.4, Benign neoplasm of descending colon D12.3, Benign neoplasm of transverse colon (hepatic flexure or splenic flexure) R19.5, Other fecal abnormalities K57.30, Diverticulosis of large intestine without perforation or abscess without bleeding CPT copyright 2018 [employer]. All rights reserved. The codes documented in this report are preliminary and upon lighting technician review may be revised to meet current compliance requirements. Joao Garrett MD 07/16/2019 1:47:49 PM This document has been electronically signed. Number of Addenda: 0 Note Initiated On: 07/16/2019 12:45 PM Endoscopy Report Veronica BALDWIN GI PROCEDURE ORDE STEVEN [facility] Organization Address City/State/ZIP Co de Phone Number GI ([facility]) [place], [place] from Last 3 Months or Most Recently Relevant to Health Maintenance Advance Directives Documents on File Type Date Recorded Patient Product Support Manager Expl anation HEALTHCARE DIRECTIVE 11/10/2021 2 * [...] 12:07 PM 04/24/2018 3:33 PM Care Teams Air Drier Relationship Specialty Start Date End Date Eliana Haynes MD [address] [place] [address] PCP - General Family Practice 09/26/23
== END 2024-05-06 07:31 | disposition home or self-care (01) ==
LOC: NFLDREF 07:30
PROVIDERS: PCP Family Medicine; Visit Provider Family Medicine
DX: R39.9 Unspecified symptoms and signs involving the genitourinary system (principal)
CPT/HCPCS: 87086; 87186

== ENCOUNTER 2024-07-21 17:39 | Outpatient (REF) | payer MEDICARE, BC, SELFPAY ==
--- OUTSIDE RECORDS SUMMARY | 2024-07-21 17:45 | XMS_ITS | Clinical Summary ---
Author Organization [employer] [facility] Address [place], [place] [address] Care Team Providers Care Poll Watcher Name Role Phone Veronica Heredia DO Primary Care Provider [phone] Allergies Active Allergy Reactions Criticality Noted Date [...] for age 50+ (1 of 2) 1992 RSV vaccine for adults or pr egnancy (1 - 1-dose 60+ series) 2002 DEXA/DXA scan for age 65+ 2007 Medicare Wellness for age 65+ 2007 Pneumococcal series for age 65+ (1 of 1 - PCV) 2007 COVID-19 vaccine series ( season) 2024 09/20/2021, 12/07/2020, 11/19/2020 Influenza for age 65+ 07/06/2024 Advance Directives * Full Code (Latest Code Status on File) Date Activated Date Inactivated Comments 07/21/2021 12:27 PM 07/21/2021 6:16 PM Question Answer Comments Code Status Discussion: Not Discussed Care Teams Poll Watcher Relationship Specialty [place] [address] [facility] RANDELL Redman [address] PCP - General 07/21/21
--- OUTSIDE RECORDS SUMMARY | 2024-07-21 17:45 | XMS_ITS | Clinical Summary ---
Author Organization [facility] Address [address] [place] [address] Care Team Providers Care Occupational Therapy Manager Name Role Phone Eliana Haynes MD Primary [...] for each transition of care or referral. [facility] Allergies Active Allergy Reactions Criticality Noted Date Comments Iodinated Contrast Media Anaphylaxis High 04/22/2018 Penicillins Hives High 07/01/2004 Has tolerated ancef per [facility] chart review. Sulfa Antibiotics Hives High [...] Unsigned Pathologic:Stage Unknown(pT2, pNX, cM0) - Unsigned Overview (05/02/2018): Added automatically from request for surgery [id number] Calculus of kidney 04/18/2016 Overview (06/27/2017): Calculus of kidney right side diagnosed CT scan in [place] asymptomatic Hyperlipidemia 07/12/2005 Overview (06/07/2016): takes zocor Essential hypertension 04/11/2003 Overview (06/27/2017): takes atenolol cozaar ; Hypertension Resolved Problems Problem Noted Date Diagnosed Date Resolved Date Post-menopausal bleeding 04/10/2018 Overview (04/10/2018): Added automatically from request for surgery [id number] Postmenopausal 04/16/2015 05/21/2018 Aspirin long-term use 04/16/20152017 Overview (06/07/2016): ASA therapy 75-162 mg/day is recommended for primary CVD prevention because patient -Is female 55 years who have at least one additional major risk factor such as: -HTN -Dyslipdemia H/O colonoscopy 04/16/2015 05/21/2018 Overview (06/27/2017): H/O colonoscopy 2007 Vitamin D deficiency 04/16/2015 017 BMI 34.0-34.9,adult 04/16/2015 04/02/20 19 Esophageal reflux 04/30/2006 01/16/2022 Overview (06/27/2017): infreqvent symptoms uses OTC medication ; Gastroesophageal Reflux Disease Immunizations Name Administration Dates Next Due Flu Vac Preserv Free (3+yrs) 07/19/2012, 07/17/2011,07/14/2010, 009 Influenza (Fluzone 0.25, 6-35 mos) 07/21/2013 Influenza IIV3 (Trivalent) F luzone Highdose, 65+ Yrs (54139) 08/05/2019,08/10/2017,07/19/2015 Influenza IIV4 (Quadrivalent ) 0.5mL (03223) 07/21/2013 Influenza IIV4 (Quadrivalent ) Fluad, 65+ [...] T Respiratory Rate 18 01/05/2022 7:47 AM CQ DEVELOPER Oxygen Saturation 94% 01/05/2022 7:47 AM CQ DEVELOPER Inhaled Oxygen Concentration - - Weight 80.9 kg (178 lb 7 oz) 01/16/2022 1:45 PM CDT Height 159 cm (5' 2.6) 01/16/2022 1:45 PM CDT Body Mass Index 32.02 01/16/2022 1:45 PM CDT Plan of Treatment Health Maintenance Due Date Last Done Comments RSV (1 - 1-dose 75+ series) 2017 Zoster/Shingles (3 of 3) 04/02/2019 02/05/2019, 07/06 Colonoscopy 07/16/2022 07/16/2019, 03/12/2008 Prediabetes: HGBA1C 01/16/2023 01/16/2022, 02/22/2021, 06/30/2020, Additional history exists Medicare Annual Wellness Visit 10/26/2023 10/26/2022, 09/20/2021, 06/30/2020, Additional history exists COVID-19 Vaccine ( season) 2024 09/20/2021, 12/07/2020, 11/19/2020 Influenza (#1) 2024 07/31/2023, 09/05, 08/05/2019, Additional history exists DTaP/Tdap/Td (2 - Tdap) 04/19/2027 04/19/20 17, 07/13/2009, 07/20/1999 Dexa Completed 07/26/2011 (Completed) Pneumococcal 65+ Yrs Completed 04/16/2015, 07/14/2010, 07/14/2010 (Completed) HepA Aged Out No longer eligi ble [...] 5.8(H) <=5.6 % 01/17/2022 9:08 AM CDT [facility] Blood Venipuncture / Unknown 01/16/2022 2:38 PM CDT 01/16/2022 2:38 PM CDT Narrative [facility] - 01/17/2022 9:08 AM CDT For patients not previously diagnosed with diabetes: 5.7-6.4%: Increased risk for diabetes 6.5% and greater: Diagnostic for diabetes For patients diagnosed with diabetes: <8.0%: Goal of therapy for ages 18-75 Clinicians may recommend a higher or lower goal for specific individuals. Veronica Heredia DO LAB_1 [facility] [address] [phone] * Endoscopy, Colon, Screening/Diagnostic (07/16/2019 12:45 PM CDT) Anatomical Region Laterality Modality Other 07/16/2019 12:4 5 PM CDT Narrative 07/16/2019 12:45 PM CDT Patient Name: Michele [...] oxygen saturations were monitored ? continuously. The [id number] was ? introduced through the anus and [...] Procedure Code(s): ?? --- Professional --- ? 64978, Colonoscopy, flexible; with ? removal of tumor(s), polyp(s), or ? other lesion(s) by snare technique ? 18607, 59, Colonoscopy, flexible; ? with biopsy, single or multiple ? 23332, Moderate sedation; each ? additional 15 minutes [...] (additional time may ? be reported with 54720, as ? appropriate) Diagnosis Code(s): ?? --- [...] ? abscess without bleeding CPT copyright 2018 [employer]. All rights reserved. The codes documented in this report are preliminary and upon hat cleaner review may be revised to meet current [...] and oxygen saturations were monitored continuously. The [id number] was introduced through the anus and advanced [...] pathology results. Procedure Code(s): --- Professional --- 07310, Colonoscopy, flexible; with removal of tumor(s), polyp(s), or other lesion(s) by snare technique 54705, 59, Colonoscopy, flexible; with biopsy, single or multiple 70944, Moderate sedation; each additional 15 minutes intraservice time G0500, Moderate sedation services provided by the same physician or other qualified health care tech performing a gastrointestinal endoscopic service that sedation supports, requiring the presence of an independent trained observer to assist in the monitoring of the patient's level of consciousness and physiological status; initial 15 minutes of intra-service time; patient age 5 years or older (additional time may be reported with 26174, as appropriate) Diagnosis Code(s): --- Professional --- D12.0, Benign neoplasm of cecum D12.2, Benign neoplasm of ascending colon D12.4, Benign neoplasm of descending colon D12.3, Benign neoplasm of transverse colon (hepatic flexure or splenic flexure) R19.5, Other fecal abnormalities K57.30, Diverticulosis of large intestine without perforation or abscess without bleeding CPT copyright 2018 [employer]. All rights reserved. The codes documented in this report are preliminary and upon hat cleaner review may be revised to meet current compliance requirements. Joao Garrett MD 07/16/2019 1:47:49 PM This document has been electronically signed. Number of Addenda: 0 Note Initiated On: 07/16/2019 12:45 PM Endoscopy Report Veronica BALDWIN GI PROCEDURE ORDE STEVEN from Last 3 Months or Most Recently Relevant to Health Maintenance Advance Directives Documents on File Type Date Recorded Patient Facility Specialist Expl anation HEALTHCARE DIRECTIVE 11/10/2021 2 * [...] 12:07 PM 04/24/2018 3:33 PM Care Teams Occupational Therapy Manager Relationship Specialty Start Date End Date Eliana Haynes MD [address] [place] [address] PCP - General Family Practice 09/26/23
[2024-07-21 18:16] LABS: Basophils Absolute Auto 0.01 K/uL (0.00-0.30); Basophils Percent Auto 0.2 % (0.0-3.0); Eosinophils Absolute Auto 0.04 K/uL (0.00-0.50); Eosinophils Percent Auto 0.7 % (0.0-7.0); Hemoglobin* 11.4 gm/dL (12.0-16.0); Immature Granulocytes Abs Auto 0.04 K/uL (0.00-0.30); Immature Granulocytes Pct Auto 0.7 %; Lymphocytes Percent Auto 28.7 % (20-44); Mean Corpuscular HGB Conc 32 gm/dL (32-36); Mean Corpuscular Hemoglobin 29 pg (26-34); Mean Corpuscular Volume 91 fL (80-100); Neutrophils Absolute Auto 3.24 K/uL (1.7-7.0); Neutrophils Percent Auto 54.7 % (42.0-72.0); Platelet Count* 174 K/uL (140-440); RDW Coefficient of Variation % 14.7 % (11.5-15.5); Red Blood Count 3.95 m/uL (4.00-5.20); White Blood Count* 5.92 K/uL (4.50-11.00)
[2024-07-21 18:23] LABS: Slide Review Reflex No
[2024-07-21 18:26] LABS: Chloride* 105 mmol/L (96-114)
[2024-07-21 18:27] LABS: Albumin* 4.4 g/dL (3.3-5.0); Ammonia* < 9.0 umol/L (13.1-30.0); Potassium* 3.9 mmol/L (3.6-5.1); Sodium* 142 mmol/L (135-149)
[2024-07-21 18:29] LABS: Creatinine* 1.5 mg/dL (0.5-1.5); Estimated Glomerular Filt Rate 35 ml/min
[2024-07-21 18:30] LABS: Alanine Aminotransferase* 14 U/L (4-35); Alkaline Phosphatase* 91 U/L (40-150); Anion Gap 10 mEq/L (7-15); Aspartate Amino Transferase* 22 U/L (12-35); Bilirubin Total* 0.6 mg/dL (0.1-1.5); Blood Urea Nitrogen* 37 mg/dL (7-30); Carbon Dioxide* 27 mmol/L (20-32); Glucose* 113 mg/dL (60-115); Total Protein* 6.8 g/dL (6.0-8.3)
[2024-07-21 18:31] LABS: Calcium* 9.2 mg/dL (8.4-10.6)
[2024-07-21 18:36] LABS: C Reactive Protein* < 0.5 mg/dL (0.5-1.0)
[2024-07-21 18:48] LABS: Free T4 Free Thyroxine* 1.23 ng/dL (0.70-1.85)
[2024-07-21 19:36] LABS: Vitamin B12* 983 pg/mL (243-894)
[2024-07-23 18:43] LABS: Folate, Serum >22.3 ng/mL (>=5.9)
== END 2024-07-21 17:40 | disposition home or self-care (01) ==
LOC: NPINS 17:39
PROVIDERS: PCP Family Medicine; Visit Provider Psychiatry & Neurology Neurology
DX: R41.3 Other amnesia (principal); F09 Unspecified mental disorder due to known physiological condition
CPT/HCPCS: 80053; 82140; 82607; 82746; 83520; 84439; 84443; 85025; 86140

== ENCOUNTER 2024-08-13 07:56 | Outpatient (CLI) | payer MEDICARE, BC, SELFPAY ==
--- OUTSIDE RECORDS SUMMARY | 2024-08-13 07:59 | XMS_ITS | Clinical Summary ---
Author Organization [employer] [facility] Address [place], [place] [address] Care Team Providers Care Pre K Teacher Name Role Phone Veronica Heredia DO Primary Care Provider [phone] Allergies Active Allergy Reactions Criticality Noted Date [...] 65+ (1 of 1 - PCV) 2007 RSV vaccine for adults or pr egnancy (1 - 1-dose 75+ series) 2017 COVID-19 vaccine series ( season) 2024 09/20/2021, 12/07/2020, 11/19/2020 Influenza for age 65+ 07/06/2024 Advance Directives * Full Code (Latest Code Status on File) Date Activated Date Inactivated Comments 07/21/2021 12:27 PM 07/21/2021 6:16 PM Question Answer Comments Code Status Discussion: Not Discussed Care Teams Pre K Teacher Relationship Specialty [place] [address] [facility] RANDELL Redman [address] PCP - General 07/21/21
--- OUTSIDE RECORDS SUMMARY | 2024-08-13 07:59 | XMS_ITS | Clinical Summary ---
[facility] Address [address] [place] [address] Care Team Providers Care Hollow Core Door Frame Assembler Name Role Phone Eliana Haynes MD Primary [...] for each transition of care or referral. [email or web address] Allergies Active Allergy Reactions Criticality Noted Date Comments Iodinated Contrast Media Anaphylaxis High 04/22/2018 Penicillins Hives High 07/01/2004 Has tolerated ancef per [facility] chart review. Sulfa Antibiotics Hives High [...] (05/02/2018): Added automatically from request for surgery [id number] Calculus of kidney 04/18/2016 Overview (06/27/2017): Calculus of kidney right side diagnosed CT scan in [place] asymptomatic Hyperlipidemia 07/12/2005 Overview (06/07/2016): takes zocor Essential hypertension 04/11/2003 Overview (06/27/2017): takes atenolol cozaar ; Hypertension Resolved Problems Problem Noted Date Diagnosed Date Resolved Date Post-menopausal bleeding 04/10/2018 Overview (04/10/2018): Added automatically from request for surgery [id number] Postmenopausal 04/16/2015 05/21/2018 Aspirin long-term use 04/16/20152017 [...] IIV3 (Trivalent) F luzone Highdose, 65+ Yrs (56942) 08/05/2019,08/10/2017,07/19/2015 Influenza IIV4 (Quadrivalent ) 0.5mL (36895) 07/21/2013 Influenza IIV4 (Quadrivalent ) Fluad, 65+ [...] T Respiratory Rate 18 01/05/2022 7:47 AM NAPHTHALENE OPERATOR HELPER Oxygen Saturation 94% 01/05/2022 7:47 AM NAPHTHALENE OPERATOR HELPER Inhaled Oxygen Concentration - - Weight 80.9 [...] on patient's age to complete this topic RSV Aged Out No longer eligi ble based [...] 5.8(H) <=5.6 % 01/17/2022 9:08 AM CDT [facility] Blood Venipuncture / Unknown 01/16/2022 2:38 PM CDT 01/16/2022 2:38 PM CDT [facility]ative [email or web address] - 01/17/2022 9:08 AM CDT For patients not previously diagnosed with diabetes: 5.7-6.4%: Increased risk for diabetes 6.5% and greater: Diagnostic for diabetes For patients diagnosed with diabetes: <8.0%: Goal of therapy for ages 18-75 Clinicians may recommend a higher or lower goal for specific individuals. Veronica Heredia DO LAB_1 [facility] [address] [address] [phone] * Endoscopy, Colon, Screening/Diagnostic (07/16/2019 12:45 PM [...] oxygen saturations were monitored ? continuously. The [id number] was ? introduced through the anus and [...] Procedure Code(s): ?? --- Professional --- ? 62930, Colonoscopy, flexible; with ? removal of tumor(s), polyp(s), or ? other lesion(s) by snare technique ? 94481, 59, Colonoscopy, flexible; ? with biopsy, single or multiple ? 68675, Moderate sedation; each ? additional 15 minutes [...] (additional time may ? be reported with 98552, as ? appropriate) Diagnosis Code(s): ?? --- [...] ? abscess without bleeding CPT copyright 2018 [employer]. All rights reserved. The codes documented in this report are preliminary and upon coder operator review may be revised to meet current [...] and oxygen saturations were monitored continuously. The [id number] was introduced through the anus and advanced [...] pathology results. Procedure Code(s): --- Professional --- 88545, Colonoscopy, flexible; with removal of tumor(s), polyp(s), or other lesion(s) by snare technique 10511, 59, Colonoscopy, flexible; with biopsy, single or multiple 44416, Moderate sedation; each additional 15 minutes intraservice time G0500, Moderate sedation services provided by the same physician or other qualified health rn long term care performing a gastrointestinal endoscopic service that sedation supports, requiring the presence of an independent trained observer to assist in the monitoring of the patient's level of consciousness and physiological status; initial 15 minutes of intra-service time; patient age 5 years or older (additional time may be reported with 41405, as appropriate) Diagnosis Code(s): --- Professional --- D12.0, Benign neoplasm of cecum D12.2, Benign neoplasm of ascending colon D12.4, Benign neoplasm of descending colon D12.3, Benign neoplasm of transverse colon (hepatic flexure or splenic flexure) R19.5, Other fecal abnormalities K57.30, Diverticulosis of large intestine without perforation or abscess without bleeding CPT copyright 2018 [employer]. All rights reserved. The codes documented in this report are preliminary and upon coder operator review may be revised to meet current compliance requirements. Joao Garrett MD 07/16/2019 1:47:49 PM This document has been electronically signed. Number of Addenda: 0 Note Initiated On: 07/16/2019 12:45 PM Endoscopy Report Veronica Heredia DO ET GI PROCEDURE LYNDAE STEVEN from Last 3 Months or Most Recently Relevant to Health Maintenance Advance Directives Documents on File Type Date Recorded Patient Caustic Purification Operator Expl anation HEALTHCARE DIRECTIVE 11/10/2021 2 [...] 12:07 PM 04/24/2018 3:33 PM Care Teams Hollow Core Door Frame Assembler Relationship Specialty Start Date End Date Eliana Haynes MD [address] [place] [address] PCP - General Family Practice 09/26/23
--- NOTE | 2024-08-13 08:45 | CRLHL7_ITS ---
For Patients: As a result of the Century Cures Act, medical imaging exams and procedure reports are released immediately into your electronic medical record. You may view this report before your referring provider. If you have questions, please contact your health care provider. INDICATION: Cognitive disorder. Memory loss TECHNIQUE: Noncontrast Sagittal T1,Axial FSE T2, Flair, DWI images submitted. No comparisons. FINDINGS: Mild cerebral atrophy. The ventricles, sulci and gyri are of normal size, shape and contour for age and degree of atrophy. Midline structures are centrally located. No convincing evidence of suspicious intra- or extra-axial fluid collections. Minimal patchy regions of increased T2 signal within the periventricular and subcortical white matter of both cerebral hemispheres. No regions of restricted diffusion. IMPRESSION: 1. No radiographic evidence of acute intracranial abnormalities. 2. Mild cerebral atrophy. 3. Minimal supratentorial white matter changes that are non-specific, but statistically most likely related to chronic small vessel ischemic disease. Dictated by Tino Ridley MD @ 08/13/2024 9:08:06 AM (Electronically Signed)
== END 2024-08-13 07:57 | disposition home or self-care (01) ==
LOC: MRI 07:57
PROVIDERS: PCP Family Medicine; Visit Provider Psychiatry & Neurology Neurology
DX: R41.3 Other amnesia (principal); G31.9 Degenerative disease of nervous system, unspecified; F09 Unspecified mental disorder due to known physiological condition
CPT/HCPCS: 70551

== ENCOUNTER 2024-10-10 07:35 | Outpatient (CLI) | payer MEDICARE, SELFPAY ==
--- OUTSIDE RECORDS SUMMARY | 2024-10-14 15:50 | XMS_ITS | Clinical Summary ---
[facility] Address [address] [place] [address] Care Team Providers Care Ferry Terminal Agent Name Role Phone Eliana Haynes MD Primary [...] for each transition of care or referral. [facility] Allergies Active Allergy Reactions Criticality Noted Date Comments Iodinated Contrast Media Anaphylaxis High 04/22/2018 Penicillins Hives High 07/01/2004 Has tolerated ancef per [facility] chart review. Sulfa Antibiotics Hives High [...] (05/02/2018): Added automatically from request for surgery [id number] Calculus of kidney 04/18/2016 Overview (06/27/2017): Calculus of kidney right side diagnosed CT scan in [place] asymptomatic Hyperlipidemia 07/12/2005 Overview (06/07/2016): takes zocor Essential hypertension 04/11/2003 Overview (06/27/2017): takes atenolol cozaar ; Hypertension Resolved Problems Problem Noted Date Diagnosed Date Resolved Date Post-menopausal bleeding 04/10/2018 Overview (04/10/2018): Added automatically from request for surgery [id number] Postmenopausal 04/16/2015 05/21/2018 Aspirin long-term use 04/16/20152017 [...] IIV3 (Trivalent) F luzone Highdose, 65+ Yrs (90702) 08/05/2019,08/10/2017,07/19/2015 Influenza IIV4 (Quadrivalent ) 0.5mL (96850) 07/21/2013 Influenza IIV4 (Quadrivalent ) Fluad, 65+ [...] 71 01/20/2022 8:46 AM CDT Temperature 36.3 C (97.4 F) 01/05/2022 7:47 AM SHOOK MACHINE OPERATOR Respiratory Rate 18 01/05/2022 7:47 AM SHOOK MACHINE OPERATOR Oxygen Saturation 94% 01/05/2022 7:47 AM SHOOK MACHINE OPERATOR Inhaled Oxygen Concentration - - Weight 80.9 [...] 5.8(H) <=5.6 % 01/17/2022 9:08 AM CDT [employer] [employer] [facility] Blood Venipuncture / Unknown 01/16/2022 2:38 PM CDT 01/16/2022 2:38 PM CDT Narrative [facility] [employer] [facility] - 01/17/2022 9:08 AM CDT For patients not previously diagnosed with diabetes: 5.7-6.4%: Increased risk for diabetes 6.5% and greater: Diagnostic for diabetes For patients diagnosed with diabetes: <8.0%: Goal of therapy for ages 18-75 Clinicians may recommend a higher or lower goal for specific individuals. Veronica Heredia DO [facility]1 [facility] [address] [id number] [phone] * Endoscopy, Colon, Screening/Diagnostic (07/16/2019 12:45 PM [...] and oxygen saturations were monitored continuously. The [id number] was introduced through the anus and advanced [...] pathology results. Procedure Code(s): --- Professional --- 44717, Colonoscopy, flexible; with removal of tumor(s), polyp(s), or other lesion(s) by snare technique 14970, 59, Colonoscopy, flexible; with biopsy, single or multiple 67852, Moderate sedation; each additional 15 minutes intraservice time G0500, Moderate sedation services provided by the same physician or other qualified health child care group leader performing a gastrointestinal endoscopic service that sedation supports, requiring the presence of an independent trained observer to assist in the monitoring of the patient's level of consciousness and physiological status; initial 15 minutes of intra-service time; patient age 5 years or older (additional time may be reported with 54955, as appropriate) Diagnosis Code(s): --- Professional --- D12.0, Benign neoplasm of cecum D12.2, Benign neoplasm of ascending colon D12.4, Benign neoplasm of descending colon D12.3, Benign neoplasm of transverse colon (hepatic flexure or splenic flexure) R19.5, Other fecal abnormalities K57.30, Diverticulosis of large intestine without perforation or abscess without bleeding CPT copyright 2018 [employer]. All rights reserved. The codes documented in this report are preliminary and upon hardware engineer review may be revised to meet current compliance requirements. Joao Garrett MD 07/16/2019 1:47:49 PM This document has been electronically signed. Number of Addenda: 0 Note Initiated On: 07/16/2019 12:45 PM Endoscopy Report Procedure Note Joao Garrett MD [...] and oxygen saturations were monitored continuously. The [id number] was introduced through the anus and advanced [...] pathology results. Procedure Code(s): --- Professional --- 30983, Colonoscopy, flexible; with removal of tumor(s), polyp(s), or other lesion(s) by snare technique 81193, 59, Colonoscopy, flexible; with biopsy, single or multiple 31259, Moderate sedation; each additional 15 minutes intraservice time G0500, Moderate sedation services provided by the same physician or other qualified health child care group leader performing a gastrointestinal endoscopic service that sedation supports, requiring the presence of an independent trained observer to assist in the monitoring of the patient's level of consciousness and physiological status; initial 15 minutes of intra-service time; patient age 5 years or older (additional time may be reported with 22239, as appropriate) Diagnosis Code(s): --- Professional --- D12.0, Benign neoplasm of cecum D12.2, Benign neoplasm of ascending colon D12.4, Benign neoplasm of descending colon D12.3, Benign neoplasm of transverse colon (hepatic flexure or splenic flexure) R19.5, Other fecal abnormalities K57.30, Diverticulosis of large intestine without perforation or abscess without bleeding CPT copyright 2018 [employer]. All rights reserved. The codes documented in this report are preliminary and upon hardware engineer review may be revised to meet current compliance requirements. Joao Garrett MD 07/16/2019 1:47:49 PM This document has been electronically signed. Number of Addenda: 0 Note Initiated On: 07/16/2019 12:45 PM Endoscopy Report Veronica Heredia DO ET GI PROCEDURE ORDE STEVEN from Last 3 Months or Most Recently Relevant to Health Maintenance Advance Directives Documents on File Type Date Recorded Patient Boxcar Weigher Expl anation HEALTHCARE DIRECTIVE 11/10/2021 * Full Code (Latest Code Status on File) Date Activated Date Inactivated Comments 01/02/2022 6:55 PM 01/05/2022 3:10 PM Question Answer Comments On Admission, Code status was determined by: Dis cussed with patient/family * Full Code Date Activated Date Inactivated Comments 06/12/2018 8:02 AM 06/13/2018 12:33 PM * Full Code Date Activated Date Inactivated Comments 04/24/2018 12:07 PM 04/24/2018 3:33 PM Care Teams Ferry Terminal Agent Relationship Specialty Start Date End Date Eliana Haynes MD [address] [place] [address] PCP - General Family Practice 09/26/23
--- OUTSIDE RECORDS SUMMARY | 2024-10-14 15:50 | XMS_ITS | Clinical Summary ---
Author Organization [facility] Address [place], [place] [address] Care Team Providers Care Project Development Leader Name Role Phone Veronica Heredia DO Primary Care Provider [phone] Allergies Active Allergy Reactions Criticality Noted Date Comments Iodinated Contrast Media Anaphylaxis High 04/22/2018 Sulfa (Sulfonamide Antibiotics) Hives High 06/06 Medications acetaminophen (TYLENOL) 325 mg tablet Take 325-650 mg by mouth every 4 hours if needed. Active azithromycin (ZITHROMAX) 250 mg tablet TAKE 2 TABLETS BY MOUTH TODAY, THEN TAKE 1 TABLET DAILY FOR 4 DAYS 1 Active ketorolac 0.5 % ophthalmic (ACULAR) solution PLEASE SEE ATTACHED FOR DETAILED DIRECTIONS 1 Active hydroCHLOROthia zide 12.5 mg capsule Take 1 Capsule by mouth once daily. 1 Active levothyroxine (SYNTHROID) 75 mcg tablet Take 1 Tablet by mouth once daily. 1 Active losartan-hydroc hlorothiazide (HYZAAR) 100-12.5 mg tablet Take 1 Tablet by mouth once daily. 1 Active metoprolol succinate (TOPROL XL) 25 mg Sustained-Relea se tablet Take 1 Tab by mouth daily. Take with Toprol XL 50 mg tab to equal 75 mg. 0 Active metoprolol succinate (TOPROL XL) 50 mg sustained-relea se tablet Take 1 Tablet by mouth once daily. 1 Active moxifloxacin (VIGAMOX) 0.5 % ophthalmic solution START 1 DAY BEFORE SURGERY INSTILL 1 DROP IN OPERATIVE EYE 4X/DAY. USE UNTIL EMPTY, MAX 4WKS 1 Active prednisoLONE acetate 1% ophthalmic (ECONOPRED PLUS, PRED FORTE, OMNIPRED) suspension INSTILL ONE DROP TO OPERATIVE EYE FOUR TIMES DAILY FOR A WEEK 1 Active simvastatin (ZOCOR) 20 mg tablet Take 1 Tablet by mouth once daily. 0 Active cyclopentolate (CYCLOGYL) 1 % ophthalmic solution Place 1 drop into right eye the morning after surgery then at bedtime daily 5 mL 07/21/2021 4:14 PM CDT 1 Active prednisoLONE acetate 1% ophthalmic (ECONOPRED PLUS, PRED FORTE, OMNIPRED) suspension Place 1 drop into right eye 4 times daily. SHAKE WELL 15 mL 07/21/2021 4:14 PM CDT 1 Active Social History Tobacco Use Types Packs/Day Years Used Date Smoking Tobacco: Never Smokeless Tobacco: Never Comments No Sex and Gender Information Value Date Recorded Sex Assigned at Not on file Legal Sex Female 2:55 PM CDT Gender Identity Not on file Sexual Orientation Not on file Obstetrics History Last Filed Vital Signs Vital Sign Reading Time Taken Comments Blood Pressure 152/90 07/21/2021 4:00 PM CDT Pulse 70 07/21/2021 4:00 PM CDT Temperature 36.4 C (97.5 F) 07/21/2021 12:00 PM CDT Respiratory Rate 16 07/21/2021 4:00 PM CDT [...] 1-dose 75+ series) 2017 COVID-19 vaccine series (2023- season) 2024 09/20/2021, 12/07/2020, 11/19/2020 Influenza for age 65+ 07/06/2024 Insurance MEDICARE PART B HB ONLY MEDICARE PART A HB ONLY [facility] MEDICARE [facility] ONLY Advance Directives * Full Code (Latest Code Status on File) Date Activated Date Inactivated Comments 07/21/2021 12:27 PM 07/21/2021 6:16 PM Question Answer Comments Code Status Discussion: Not Discussed Care Teams Project Development Leader Relationship Specialty [place] [id number] [facility] [place] [id number] PCP - General 07/21/21
== END 2024-10-10 07:36 | disposition home or self-care (01) ==
LOC: NFLDREF 10-14 15:48
PROVIDERS: PCP Family Medicine; Referring Provider Family Medicine; Visit Provider Family Medicine
DX: E78.5 Hyperlipidemia, unspecified (principal); D64.9 Anemia, unspecified; I10 Essential (primary) hypertension; E03.9 Hypothyroidism, unspecified; Z86.39 Personal history of other endocrine, nutritional and metabolic disease
CPT/HCPCS: 80053; 80061; 82607; 84439; 84443

== ENCOUNTER 2025-03-25 07:30 | Outpatient (CLI) | payer MEDICARE, BC, SELFPAY | END 2025-03-25 07:31 | disposition home or self-care (01) | LOC: NFLDREF 04-01 15:08 | PROVIDERS: PCP Family Medicine; Referring Provider Family Medicine; Visit Provider Family Medicine | DX: E55.9 Vitamin D deficiency, unspecified (principal); I10 Essential (primary) hypertension; E03.9 Hypothyroidism, unspecified | CPT/HCPCS: 80048; 82306; 84439; 84443 ==

== ENCOUNTER 2025-07-02 09:37 | Outpatient (CLI) | payer MEDICARE, BC, SELFPAY | END 2025-07-02 09:38 | disposition home or self-care (01) | LOC: NFLDREF 07-05 05:37 | PROVIDERS: PCP Family Medicine; Referring Provider Family Medicine; Visit Provider Family Medicine | DX: E03.9 Hypothyroidism, unspecified (principal) | CPT/HCPCS: 84439; 84443 ==

== ENCOUNTER 2025-07-18 19:13 | Outpatient (CLI) | payer MEDICARE, BC, SELFPAY | END 2025-07-18 19:14 | disposition home or self-care (01) | LOC: AMB 07-23 13:38 | PROVIDERS: PCP Family Medicine; Visit Provider Family Medicine | DX: R53.1 Weakness (principal) | CPT/HCPCS: A0998 ==

== ENCOUNTER 2025-10-27 07:25 | Outpatient (CLI) | payer MEDICARE, BC, SELFPAY | END 2025-10-27 07:26 | disposition home or self-care (01) | LOC: NFLDREF 11-02 04:26 | PROVIDERS: PCP Family Medicine; Referring Provider Family Medicine; Visit Provider Family Medicine | DX: E55.9 Vitamin D deficiency, unspecified (principal); E78.2 Mixed hyperlipidemia; I10 Essential (primary) hypertension; E03.9 Hypothyroidism, unspecified; Z86.39 Personal history of other endocrine, nutritional and metabolic disease | CPT/HCPCS: 80053; 80061; 82306; 82607; 84439; 84443 ==